=== PATIENT | female | born 1955 ===

== ENCOUNTER 2022-04-16 18:42 | Emergency (ER) | payer MEDICARE, BC, SELFPAY ==
[2022-04-16 18:44] VITALS: BP 149/75; PULSE 71; RESP 18; TEMP 36.3; O2SAT 100; BMI 30.9
--- NOTE | 2022-04-16 19:09 | CRLHL7_ITS ---
For Patients: As a result of the Cures Act, medical imaging exams and procedure reports are released immediately into your electronic medical record. You may view this report before your referring provider. If you have questions, please contact your health care provider. INDICATION: shortness of breath TECHNIQUE: Chest 1 view COMPARISON: None FINDINGS: Cardiovascular and mediastinum: Mild tortuosity of the descending thoracic aorta and mild prominence of the cardiac silhouette. Lungs and pleural spaces: Lungs are clear. No sign of infiltrate or mass. No sign of pleural effusion. No pneumothorax. Bones and soft tissues: Left shoulder replacement hardware. Degenerative changes at the right glenohumeral joint. IMPRESSION: No acute findings. Dictated by Shane Rivera MD @ 04/23/2022 8:22:50 AM (Electronically Signed)
--- NOTE | 2022-04-16 19:20 | ED_ITS ---
HPI - General Adult General Date Seen: 04/16/22 <Erica Lucero MD - Last Filed: 04/25/22 19:11> Chief complaint: Flank Pain <Erica Lucero MD - Last Filed: 04/25/22 19:11> Stated complaint: R Side Back Pain Wrapping to Abdomen <Erica Lucero MD - Last Filed: 04/25/22 19:11> Time Seen by Provider: 04/16/22 18:48 <Erica Lucero MD - Last Filed: 04/25/22 19:11> Source: patient <Erica Lucero MD - Last Filed: 04/25/22 19:11> History of Present Illness HPI narrative: 67-year-old woman who presents for some right-sided back and chest pain which has been bothering her for a couple of weeks. She says it comes on after eating, this is the only time she has pain. It does not happen after every time she eats and she has not noted any association with specific foods. It starts usually about half an hour after she eats, and responds to 3 Tums. She describes it as sharp and occasionally relatively severe. It starts by her right scapula and then wraps around her right chest into the xiphoid region. It hurts to lay on the right side when it is happening. It is not associated with nausea or vomiting, she has not had any black or bloody stools. She has been having some diarrhea which is not uncommon for her. She has a history of small- bowel obstruction and says that part of her intestine is removed. She does not have any history of gastric ulcer or other GI bleeding. She denies any previous history of endoscopy. She does take meloxicam for arthritis and back pain, and says she was taking lot of ibuprofen for back pain in February. She has not taken any in March however. She does not drink alcohol, and does not smoke. She has a history of cholecystectomy 14 years ago. She is status post breast cancer remotely, bilateral mastectomy. She has not had any exertional chest pain. She denies any shortness of breath, fever or cough. No lower extremity swelling or pain. She says that she contacted her primary clinic last week about her symptoms, and was told to discontinue eating fresh fruits and vegetables. She did this for a couple of days but did not note any change in her symptoms. She says that she reached out her clinic again, but was told that they did not have any appointments and that she should go to Urgent Care. She says she did not go to Urgent Care because she had a lot of people coming to her house for reunion over the weekend. The reunion is now completed, so she presents to the emergency room for evaluation. <Erica Lucero MD - Last Filed: 04/25/22 19:11> Related Data Home medications: Home Medications Medication Instructions Recorded Confirmed amlodipine 10 mg tablet mg 04/16/22 fluoxetine 20 mg capsule mg 04/16/22 fluoxetine 40 mg capsule mg 04/16/22 latanoprost 0.005 % eye drops drp 04/16/22 levothyroxine 137 mcg tablet mcg 04/16/22 levothyroxine 150 mcg tablet mcg 04/16/22 losartan 25 mg tablet mg 04/16/22 meloxicam 15 mg tablet mg 04/16/22 <Erica Lucero MD - Last Filed: 04/25/22 19:11> Allergies/adverse reactions: Allergies Allergy/AdvReac Type Severity Reaction Status Date / Time hydromorphone [From Dilaudid] Allergy Mild Nausea Verified 04/16/22 18:51 morphine Allergy Mild Nausea Verified 04/16/22 18:51 <Erica Lucero MD - Last Filed: 04/25/22 19:11> Review of Systems Status of ROS: Reports: 10 or more systems reviewed and unremarkable except as noted in History and below <Erica Lucero MD - Last Filed: 04/25/22 19:11> [facility] Social History: Social History Smoking Status: Never smoker Do you use any of these nicotine containing products: None Second hand tobacco smoke exposure: No How often do you have a drink containing alcohol: monthly or less AUDIT-C Alcohol total score: 1 Non-prescribed substance use: denies use <Erica Lucero MD - Last Filed: 04/25/22 19:11> Exam Narrative: Exam Narrative: Vital signs as noted above. In general, an alert, well-appearing patient. Head: Normocephalic, atraumatic. Eyes: Pupils are equal reactive. Extraocular movements are full. Conjunctivae are normal. ENT: Mucous membranes are moist. Throat is normal. Neck: Supple without lymphadenopathy. Heart: Regular rate and rhythm. No murmur or rub. Lungs: Clear bilaterally. No increased work of breathing, crackles or wheezes. Abdomen: Soft and nontender. No organomegaly. Extremities: Well perfused. No edema. No calf tenderness. Pulses intact. Neurologic: Patient is alert and oriented to person and place. Speech is fluent. Face is symmetric. Moves all extremities equally. Affect: Normal. Skin: Warm and dry. Well perfused. <Erica Lucero MD - Last Filed: 04/25/22 19:11> Const: Vital Signs, click to edit/add: Vital Signs - 24 hr 04/16/22 18:44 Temperature 97.3 F L Pulse Rate [Right Pulse Oximeter] 71 Respiratory Rate 18 Blood Pressure [Ri ght Upper Arm] 149/75 H Pulse Oximetry 100 Oxygen Delivery Me thod Room Air <Erica Lucero MD - Last Filed: 04/25/22 19:11> Vital Signs, click to edit/add: Vital Signs - 24 hr 04/16/22 18:44 Temperature 97.3 F L Pulse Rate [Right Pulse Oximeter] 71 Respiratory Rate 18 Blood Pressure [Ri ght Upper Arm] 149/75 H Pulse Oximetry 100 Oxygen Delivery Me thod Room Air <Yo Sam MD - Last Filed: 04/16/22 21:57> Course Course Hospital Course: Patient had an EKG which by my review shows normal sinus rhythm, ventricular rate of 61 beats per minute. No acute ST segment changes. A portable chest x-ray by my review is also negative, final radiology report is pending at this time. Her labs are also pending. She remains comfortable without acute symptoms. I am signing her care out to Dr. Sam to follow up on labs. He is seeming these are negative, I think it is reasonable to let her go home. Given that she does not have pain now, I do not think this likely represents problem such as pancreatitis, hepatitis, bowel obstruction, my suspicion for cardiac etiology is low but I did do a troponin. EKG is normal. Symptoms have been exclusively postprandial, and I do not think she needs repeat troponins. Her cholecystectomy was over a decade ago, retained stone is unlikely assuming her LFTs and lipase are normal. I do think it is most likely that this is related to esophagitis, esophageal spasm, gastritis or peptic ulcer disease. I would recommend that she start on a PPI and follow up closely with her primary doctor. It does not sound as if there is any specific dietary trigger for her, so do not think she needs to moderate her food intake at this time, I think it is reasonable for her to go back to eating fruits and vegetables. If she has persistent severe pain, or she has new symptoms such as vomiting, fever, black or bloody stools, she should return to the emergency department for more emergent evaluation. She certainly is not toxic or having severe pain at this time, chest x-ray is negative, I do not think this represents esophageal perforation. <Erica Lucero MD - Last Filed: 04/25/22 19:11> Reevaluation(s) Reevaluation #1: AST and ALT mildly elevated, bilirubin and lipase are normal, biliary obstruction unlikely. Labs are otherwise reassuring. Patient remains comfortable in the emergency department and is stable for discharge. <Yo Sam MD - Last Filed: 04/16/22 21:57> Vital Signs Vital signs: Initial Vital Signs Temperature 97.3 F L 04/16/22 18:44 Temperature Source Temporal Artery Scan 04/16/22 18:44 Pulse Rate 71 04/16/22 18:44 Pulse Rhythm 04/16/22 18:44 Respiratory Rate 18 04/16/22 18:44 Blood Pressure 149/75 H 04/16/22 18:44 Blood Pressure Mean 99 04/16/22 18:44 Blood Pressure Position Sitting 04/16/22 18:44 Pulse Oximetry 100 04/16/22 18:44 Oxygen Delivery Method 04/16/22 18:44 Vital Signs Temperature 97.3 F L 04/16/22 18:44 Pulse Rate 71 04/16/22 18:44 Respiratory Rate 18 04/16/22 18:44 Blood Pressure 149/75 H 04/16/22 18:44 Pulse Oximetry 100 04/16/22 18:44 Oxygen Delivery Method 04/16/22 18:44 Temperature 97.3 F L 04/16/22 18:44 Pulse Rate 71 04/16/22 18:44 Respiratory Rate 18 04/16/22 18:44 Blood Pressure 149/75 H 04/16/22 18:44 Pulse Oximetry 100 04/16/22 18:44 Oxygen Delivery Method 04/16/22 18:44 <Erica Lucero MD - Last Filed: 04/25/22 19:11> Initial Vital Signs Temperature 97.3 F L 04/16/22 18:44 Temperature Source Temporal Artery Scan 04/16/22 18:44 Pulse Rate 71 04/16/22 18:44 Pulse Rhythm 04/16/22 18:44 Respiratory Rate 18 04/16/22 18:44 Blood Pressure 149/75 H 04/16/22 18:44 Blood Pressure Mean 99 04/16/22 18:44 Blood Pressure Position Sitting 04/16/22 18:44 Pulse Oximetry 100 04/16/22 18:44 Oxygen Delivery Method 04/16/22 18:44 Vital Signs Temperature 97.3 F L 04/16/22 18:44 Pulse Rate 71 04/16/22 18:44 Respiratory Rate 18 04/16/22 18:44 Blood Pressure 149/75 H 04/16/22 18:44 Pulse Oximetry 100 04/16/22 18:44 Oxygen Delivery Method 04/16/22 18:44 Temperature 97.3 F L 04/16/22 18:44 Pulse Rate 71 04/16/22 18:44 Respiratory Rate 18 04/16/22 18:44 Blood Pressure 149/75 H 04/16/22 18:44 Pulse Oximetry 100 04/16/22 18:44 Oxygen Delivery Method 04/16/22 18:44 <Yo Sam MD - Last Filed: 04/16/22 21:57> Medical Decision Making Lab Data Labs: Lab Results 04/16/22 04/16/22 Range/Units 20:47 20:47 WBC 5.17 (4.50-11.00) K/uL RBC 4.35 (4.00-5.20) m/uL Hgb 13.1 (12.0-16.0) gm/dL Hct 40.1 (33.0-51.0) % MCV 92 (80-100) fL MCH 30 (26-34) pg MCHC 33 (32-36) gm/dL RDW Coeff of Camilo 13.4 (11.5-15.5) % Plt Count 294 (140-440) K/uL Neut % (Auto) 52.6 (42.0-72.0) % Lymph % (Auto) 33.7 (20-44) % Winn % (Auto) 11.6 H (0.0-11.0) % Eos % (Auto) 1.5 (0.0-7.0) % Baso % (Auto) 0.4 (0.0-3.0) % Neut # (Auto) 2.72 (1.7-7.0) K/uL Lymph # (Auto) 1.74 (0.90-2.90) K/uL Winn # (Auto) 0.60 (0.00-0.90) K/UL Eos # (Auto) 0.08 (0.00-0.50) K/uL Baso # (Auto) 0.02 (0.00-0.30) K/uL Abs Immat Gran (auto) 0.01 (0.00-0.30) K/uL Sodium 140 (135-149) mmol/L Potassium 4.1 (3.6-5.1) mmol/L Chloride 103 (96-114) mmol/L Carbon Dioxide 30 (20-32) mmol/L BUN 18 (7-30) mg/dL Creatinine 0.6 (0.5-1.5) mg/dL Estimated Creat Clear 46.50 Estimated GFR 98 ml/min Glucose 109 (60-115) mg/dL Calcium 9.3 (8.4-10.6) mg/dL Total Bilirubin 0.3 (0.1-1.5) mg/dL Direct Bilirubin 0.2 (0.0-0.5) mg/dL AST 39 H (12-35) U/L ALT 43 H (4-35) U/L Alkaline Phosphatase 94 (40-150) U/L C-Reactive Protein 0.7 (0.5-1.0) mg/dL Total Protein 7.2 (6.0-8.3) g/dL Albumin 4.3 (3.3-5.0) g/dL Lipase 116 (23-300) U/L <Erica Lucero MD - Last Filed: 04/25/22 19:11> Lab Results 04/16/22 04/16/22 Range/Units 20:47 20:47 WBC 5.17 (4.50-11.00) K/uL RBC 4.35 (4.00-5.20) m/uL Hgb 13.1 (12.0-16.0) gm/dL Hct 40.1 (33.0-51.0) % MCV 92 (80-100) fL MCH 30 (26-34) pg MCHC 33 (32-36) gm/dL RDW Coeff of Camilo 13.4 (11.5-15.5) % Plt Count 294 (140-440) K/uL Neut % (Auto) 52.6 (42.0-72.0) % Lymph % (Auto) 33.7 (20-44) % Winn % (Auto) 11.6 H (0.0-11.0) % Eos % (Auto) 1.5 (0.0-7.0) % Baso % (Auto) 0.4 (0.0-3.0) % Neut # (Auto) 2.72 (1.7-7.0) K/uL Lymph # (Auto) 1.74 (0.90-2.90) K/uL Winn # (Auto) 0.60 (0.00-0.90) K/UL Eos # (Auto) 0.08 (0.00-0.50) K/uL Baso # (Auto) 0.02 (0.00-0.30) K/uL Abs Immat Gran (auto) 0.01 (0.00-0.30) K/uL Sodium 140 (135-149) mmol/L Potassium 4.1 (3.6-5.1) mmol/L Chloride 103 (96-114) mmol/L Carbon Dioxide 30 (20-32) mmol/L BUN 18 (7-30) mg/dL Creatinine 0.6 (0.5-1.5) mg/dL Estimated Creat Clear 46.50 Estimated GFR 98 ml/min Glucose 109 (60-115) mg/dL Calcium 9.3 (8.4-10.6) mg/dL Total Bilirubin 0.3 (0.1-1.5) mg/dL Direct Bilirubin 0.2 (0.0-0.5) mg/dL AST 39 H (12-35) U/L ALT 43 H (4-35) U/L Alkaline Phosphatase 94 (40-150) U/L C-Reactive Protein 0.7 (0.5-1.0) mg/dL Total Protein 7.2 (6.0-8.3) g/dL Albumin 4.3 (3.3-5.0) g/dL Lipase 116 (23-300) U/L <Yo Sam MD - Last Filed: 04/16/22 21:57> Discharge Plan Discharge Clinical Impression: Esophageal spasm <Erica Lucero MD - Last Filed: 04/25/22 19:11> Patient Disposition: Home, Self-Care <Erica Lucero MD - Last Filed: 04/25/22 19:11> Condition: Stable <Erica Lucero MD - Last Filed: 04/25/22 19:11> Instructions: Esophageal Spasm (ED) <Erica Lucero MD - Last Filed: 04/25/22 19:11> Additional Instructions: Start a proton pump inhibitor such as omeprazole or pantoprazole. You can buy these over the counter. I would recommend follow-up with your primary doctor in the next 1-2 weeks. If you develop severe or unrelenting pain, new symptoms such as fever, vomiting, black or bloody stools, you should be seen again more urgently in the emergency department. <Erica Lucero MD - Last Filed: 04/25/22 19:11> Prescriptions: No Action fluoxetine 40 mg capsule Label Comments: TAKE ONE CAPSULE BY MOUTH DAILY ALONG WITH 20MG CAPSULE latanoprost 0.005 % drops Label Comments: INSTILL ONE DROP INTO EACH EYE ONCE DAILY levothyroxine 137 mcg tablet Label Comments: TAKE ONE TABLET BY MOUTH DAILY meloxicam 15 mg tablet Label Comments: TAKE ONE TABLET BY MOUTH DAILY amlodipine 10 mg tablet Label Comments: TAKE ONE TABLET BY MOUTH DAILY levothyroxine 150 mcg tablet Label Comments: TAKE ONE TABLET BY MOUTH DAILY losartan 25 mg tablet Label Comments: TAKE 1 TABLET BY MOUTH DAILY fluoxetine 20 mg capsule Label Comments: TAKE ONE CAPSULE BY MOUTH DAILY IN ADDITION TO 40 MG CAPSULE FOR A TOTAL DAILY DOSE OF 60 MG. <Erica Lucero MD - Last Filed: 04/25/22 19:11> Follow Up/Referrals: Provider,Not a Local [Primary Care Provider] - <Erica Lucero MD - Last Filed: 04/25/22 19:11> Stand Alone Forms: MyHealth Info Instructions <Erica Lucero MD - Last Filed: 04/25/22 19:11>
--- OUTSIDE RECORDS SUMMARY | 2022-04-16 19:35 | XMS_ITS | Encounter Summary ---
:1955 Author Organization [facility] Address [address] [place] [address]. [place] [address] Care Team Providers Name Role Phone Vanessa Mills MD Primary Care Provider [phone] Vanessa Mills MD Unavailable [phone] Reason for Visit Reason Comments Pre-Op Exam Encounter Details Date Type Department Care Team Description 05/23/2021 Office Visit [facility] Sumit Phan Preop [facility] [place] exam (Primary [place]x) [id number] [id number] [phone] Social History Tobacco Use Types Packs/Day Years Used Date Never Smoker Smokeless Tobacco: Never Used Alcohol Use Standard Drinks/Week Comments Yes 0 (1 standard drink = 0.6 oz pure alcoho l) 1 glass of wine per week 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 Date Recorded Female 06/29/2019 1:44 PM [employer]ING [employer] COVID-19 Exposure Response Date Recorded In the last month, have you been in contact with No / Unsure 05/23/2021 10:58 AM CDT someone who was confirmed or suspected to have Coronavirus / COVID-19? documented as of this encounter Last Filed Vital Signs Vital Sign Reading Time Taken Comments Blood Pressure 134/79 05/23/2021 11:19 AM CDT Pulse 90 05/23/2021 11:19 AM CDT Temperature 37.1 ??C (98.7 ??F) 05/23/2021 11:19 AM CDT Respiratory Rate - - Oxygen Saturation 97% 05/23/2021 11:19 AM CDT Inhaled Oxygen Concentration - - Weight 88.9 kg (196 lb) 05/23/2021 11:19 AM CDT Height 162.6 cm (5' 4) 05/23/2021 11:19 AM CDT Body Mass Index 33.64 05/23/2021 11:19 AM CDT documented in this encounter Patient Instructions Patient InstructionsCharo Armstrong MA - 05/23/2021 11:30 AM CDT Preparing for Your Surgery Getting started A nurse will call you to review your health history and instructions. They will give you an arrival time based on your scheduled surgery time. Please be ready to share the following: ?? Your doctor's clinic name and phone number ?? Your medical, surgical and anesthesia history ?? A list of allergies and sensitivities ?? A list of medicines, including herbal treatments and lffa-fwd-jjffuyh drugs ?? Whether the patient has a legal guardian (ask how to send us the papers in advance) If you have a child who's having surgery, please ask for a copy of Preparing for Your Child's Surgery. Preparing for surgery ?? Within 30 days of surgery: Have a pre-op exam (sometimes called an H&P, or History and Physical). This can be done at a clinic or pre-operative center. ? If you're having a , you may not need this exam. Talk to your care team ?? At your pre-op exam, talk to your care team about all medicines you take. If you need to stop anymedicines before surgery, ask when to start taking them again. ? We do this for your safety. Many medicines can make you bleed too much during surgery. Some changehow well surgery (anesthesia) drugs work. ?? Call your insurance company to let them know you're having surgery. (If you don't have insurance,call [phone].) ?? Call your clinic if there's any change in your health. This includes signs of a cold or flu (sorethroat, runny nose, cough, rash, fever). It also includes a scrape or scratch near the surgery site. ?? If you have questions on the day of surgery, call your hospital or surgery center. Eating and drinking guidelines For your safety: Unless your surgeon tells you otherwise, follow the guidelines below. ?? Eat and drink as usual until 8 hours before surgery. After that, no food or milk. ?? Drink clear liquids until 2 hours before surgery. These are liquids you can see through, like water, Gatorade and Propel Water. You may also have black coffee and tea (no cream or milk). ?? Nothing by mouth within 2 hours of surgery. This includes gum, candy and breath mints. ?? If you drink, stop drinking alcohol the night before surgery. ?? If your care team tells you to take medicine on the morning of surgery, it's okay to take it witha sip of water. Preventing infection ?? Shower or bathe the night before and morning of your surgery. Follow the instructions your clinicgave you. (If no instructions, use regular soap.) ?? Don't shave or clip hair near your surgery site. We'll remove the hair if needed. ?? Don't smoke or vape the morning of surgery. You may chew nicotine gum up to 2 hours before surgery. A nicotine patch is okay. ? Note: Some surgeries require you to completely quit smoking and nicotine. Check with your surgeon. ?? Your care team will make every effort to keep you safe from infection. We will: ? Clean our hands often with soap and water (or an alcohol-based hand rub). ? Clean the skin at your surgery site with a special soap that kills germs. ? Give you a special gown to keep you warm. (Cold raises the risk of infection.) ? Wear special hair covers, masks, gowns and gloves during surgery. ? Give antibiotic medicine, if prescribed. Not all surgeries need antibiotics. What to bring on the day of surgery ?? Photo ID and insurance card ?? Copy of your health care directive, if you have one ?? Glasses and hearing aides (bring cases) ? You can't wear contacts during surgery ?? Inhaler and eye drops, if you use them (tell us about these when you arrive) ?? CPAP machine or breathing device, if you use them ?? A few personal items, if spending the night ?? If you have . . . ? A pacemaker or ICD (cardiac defibrillator): Bring the ID card. ? An implanted stimulator: Bring the remote control. ? A legal guardian: Bring a copy of the certified (court-stamped) guardianship papers. Please remove any jewelry, including body piercings. Leave jewelry and other valuables at home. If you're going home the day of surgery Important: If you don't follow the rules below, we must cancel your surgery. ?? Arrange for someone to drive you home after surgery. You may not drive, take a taxi or take public transportation by yourself (unless you'll have local anesthesia only). ?? Arrange for a responsible adult to stay with you overnight. If you don't, we may keep you in the hospital overnight, and you may need to pay the costs yourself. Questions? If you have any questions for your care team, list them here: For informational purposes only. Not to replace the advice of your health care provider. Copyright ?? 2018 [facility]. All rights reserved. Clinically reviewed by Celine Espinoza MD. [employer] [id number] - REV 12/05. documented in this encounter Progress Notes Sumit Phan MD - 05/23/2021 11:30 AM CDT [address] [address] Primary Provider: Vanessa Mills Pre-op Performing Provider: SUMIT PHAN PREOPERATIVE EVALUATION: Today's date: 05/23/2021 Valeri Keenan is a 66 year old female who presents for a preoperative evaluation. Surgical Information: Surgery/Procedure: Back Surgery Surgery Location: [facility] Surgeon: Dr Lo Surgery Date: 05-29-21 Time of Surgery: TBD Where patient plans to recover: At home with family Fax number for surgical facility: [phone] Type of Anesthesia Anticipated: General Assessment & Plan The proposed surgical procedure is considered LOW risk. Preop general physical exam Scheduled for microdiscectomy Left leg pain and dysaesthesia secondary to L3.[address] Lo [facility] RECOMMENDATION: APPROVAL GIVEN to proceed with proposed procedure, without further diagnostic evaluation. Review of external notes as documented above Subjective HPI related to upcoming procedure: lumbar disk surgery DR. Lo Preop Questions 05/23/2021 1. Have you ever had a heart attack or stroke? No 2. Have you ever had surgery on your heart or blood vessels, such as a stent placement, a coronary artery bypass, or surgery on an artery in your head, neck, heart, or legs? No 3. Do you have chest pain with activity? No 4. Do you have a history of heart failure? No 5. Do you currently have a cold, bronchitis or symptoms of other infection? No 6. Do you have a cough, shortness of breath, or wheezing? No 7. Do you or anyone in your family have previous history of blood clots? No 8. Do you or does anyone in your family have a serious bleeding problem such as prolonged bleeding following surgeries or cuts? No 9. Have you ever had problems with anemia or been told to take iron pills? No 10. Have you had any abnormal blood loss such as black, tarry or bloody stools, or abnormal vaginal bleeding? No 11. Have you ever had a blood transfusion? No 12. Are you willing to have a blood transfusion if it is medically needed before, during, or after your surgery? Yes 13. Have you or any of your relatives ever had problems with anesthesia? YES - mother post op nausea 14. Do you have sleep apnea, excessive snoring or daytime drowsiness? No 15. Do you have any artifical heart valves or other implanted medical devices like a pacemaker, defibrillator, or continuous glucose monitor? No 16. Do you have artificial joints? YES - right hip 17. Are you allergic to latex? No Health Care Directive: Patient does not have a Health Care Directive or Living Will: Discussed advance care planning with patient; however, patient declined at this time. Preoperative Review of BEVERAGE DISTILLER: BEVERAGE DISTILLER reviewed - controlled substances reflected in medication list. Past Medical History: Diagnosis Date ??? Carpal tunnel syndrome 12/05/10 ??? Depression 12/25/09 ??? 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 Female stress incontinence ??? Headache(784.0) ??? Headache(784.0) 12/05/10 ??? Hypothyroidism 12/25/09 ??? MEDICAL HISTORY OF - 2002 DEXA normal ??? 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 Osteoarthrosis, unspecified whether generalized or localized, other specified sites 2003 Hands, multiple joints, followed by Rheum ??? Other specified menopausal and postmenopausal disorder 2002 On HRT x 9months, then DC ??? Personal history of colonic polyps 04/2005 adenoma ??? Pure hypercholesterolemia 2006 GOAL IS LDL<130 ??? Temporomandibular joint disorders, unspecified Past Surgical History: Procedure Laterality Date ??? C APPENDECTOMY ??? C VAG HYST,RMV TUBE/OVARY 08/2002 Fibroids, on HRT x 10 months, then D/C ??? CARPAL TUNNEL RELEASE RT/LT ??? COLONOSCOPY 04/16/2013 due 2022 ??? FOOT SURGERY RIGHT 2ND TOE SURGERY ??? FOOT SURGERY 2014 fusion of right foot ??? HC MASTECTOMY, SIMPLE, COMPLETE 03/2007 right with carcinoma, left prophylactic ??? HC THYROIDECTOMY 07/2007 total thyroidectomy ??? LAPAROTOMY EXPLORATORY 08/2018 lyses of adhesions. ileocolic resection for obstruction ??? SHOULDER SURGERY Left 07/2019 total shoulder replacement Family History Problem Relation Age of Onset ??? Neurologic Disorder Mother headaches ??? Arthritis Mother DJD ??? Hypertension Mother ??? Osteoporosis Mother ??? Cancer Mother 95 ?primary vs metastatic ??? C.A.D. Father [place] 53, at 58 ??? Neurologic Disorder Father Parkinsons ??? Hypertension Brother ??? Arthritis Brother ??? Cerebrovascular Disease Maternal Grandmother ??? Circulatory Paternal Grandmother Brain Aneurysm ??? Osteoporosis Paternal Grandmother ??? Cancer Other niece wtih squamous cell ca of tongue, age 42, nonsmoker/no Etoh ??? Prostate Cancer Brother ??? Pacemaker Brother ??? Hypertension Brother ??? Neurologic Disorder Brother parkinson's 63 ??? Breast Cancer No family hx of ??? Cancer - colorectal No family hx of Social History Tobacco Use ??? Smoking status: Never Smoker ??? Smokeless tobacco: Never Used Substance Use Topics ??? Alcohol use: Yes Comment: 1 glass of wine per week Review of Systems CONSTITUTIONAL: NEGATIVE for fever, chills, change in weight INTEGUMENTARY/SKIN: NEGATIVE for worrisome rashes, moles or lesions EYES: NEGATIVE for vision changes or irritation ENT/MOUTH: NEGATIVE for ear, mouth and throat problems RESP: NEGATIVE for significant cough or SOB CV: NEGATIVE for chest pain, palpitations or peripheral edema GI: NEGATIVE for nausea, abdominal pain, heartburn, or change in bowel habits : NEGATIVE for frequency, dysuria, or hematuria MUSCULOSKELETAL: NEGATIVE for significant arthralgias or myalgia NEURO: NEGATIVE for weakness, dizziness or paresthesias ENDOCRINE: NEGATIVE for temperature intolerance, skin/hair changes HEME: NEGATIVE for bleeding problems PSYCHIATRIC: NEGATIVE for changes in mood or affect Patient Active Problem List Diagnosis Date Noted ??? Heart murmur 06/05/2017 Priority: Medium ??? Osteoarthritis 03/25/2016 Priority: Medium Hands, multiple joints, followed by Rheum ??? Depression 03/25/2016 Priority: Medium ??? Hypertension 03/25/2016 Priority: Medium ? ? HYPERLIPIDEMIA LDL GOAL <130 09/27/2009 Priority: Medium ??? Constipation 02/15/2009 Priority: Medium ??? Malignant neoplasm of female breast (H) Priority: Medium ??Core biopsy revealed DCIS (high grade, ERPR negative). Mastectomy 03/16/2007 Problem list name updated by automated process. Provider to review ??? Obesity 04/11/2006 Priority: Medium Problem list name updated by automated process. Provider to review ??? Hypothyroidism 04/10/2006 Priority: Medium Problem list name updated by automated process. Provider to review ??? [email or web address] 11/26/2005 Priority: Medium ??? Headache 09/27/2004 Priority: Medium Problem list name updated by automated process. Provider to review ??? Female stress incontinence 09/27/2004 Priority: Medium ??? Other specified menopausal and postmenopausal disorder 09/27/2004 Priority: Medium On HRT x 9months, then DC Past Medical History: Diagnosis Date ??? Carpal tunnel syndrome 12/05/10 ??? Depression 12/25/09 ??? 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 Female stress incontinence ??? Headache(784.0) ??? Headache(784.0) 12/05/10 ??? Hypothyroidism 12/25/09 ??? MEDICAL HISTORY OF - 2002 DEXA normal ??? 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 Osteoarthrosis, unspecified whether generalized or localized, other specified sites 2004 Hands, multiple joints, followed by Rheum ??? Other specified menopausal and postmenopausal disorder 2002 On HRT x 9months, then DC ??? Personal history of colonic polyps 04/2005 adenoma ??? Pure hypercholesterolemia 2006 GOAL IS LDL<130 ??? Temporomandibular joint disorders, unspecified Past Surgical History: Procedure Laterality Date ??? C APPENDECTOMY ??? C VAG HYST,RMV TUBE/OVARY 08/2002 Fibroids, on HRT x 10 months, then D/C ??? CARPAL TUNNEL RELEASE RT/LT ??? COLONOSCOPY 04/16/2013 due 2022 ??? FOOT SURGERY RIGHT 2ND TOE SURGERY ??? FOOT SURGERY 2014 fusion of right foot ??? HC MASTECTOMY, SIMPLE, COMPLETE 03/2007 right with carcinoma, left prophylactic ??? HC THYROIDECTOMY 07/2007 total thyroidectomy ??? LAPAROTOMY EXPLORATORY 08/2018 lyses of adhesions. ileocolic resection for obstruction ??? SHOULDER SURGERY Left 07/2019 total shoulder replacement Current Outpatient Medications Medication Sig Dispense Refill ??? acetaminophen (TYLENOL EX ST ARTHRITIS PAIN) 500 MG tablet Take 2 tablets by mouth daily ??? amLODIPine (NORVASC) 10 MG tablet Take 1 daily 90 tablet 3 ??? FLUoxetine (PROZAC) 20 MG capsule Take along with 40mg dose daily 90 capsule 3 ??? FLUoxetine (PROZAC) 40 MG capsule Take one daily with 20mg capsule 90 capsule 3 ??? LEVOTHYROXINE SODIUM 175 MCG OR TABS 1 TABLET DAILY 30 0 ??? meloxicam (MOBIC) 15 MG tablet Take 1 tablet (15 mg) by mouth daily 90 tablet 3 Allergies Allergen Reactions ??? Ancef [Cefazolin Sodium] Rash ??? Meperidine nausea ??? Morphine Nausea and dizziness Social History Tobacco Use ??? Smoking status: Never Smoker ??? Smokeless tobacco: Never Used Substance Use Topics ??? Alcohol use: Yes Comment: 1 glass of wine per week History Drug Use No Objective BP 134/79 Pulse 90 Temp 98.7 ??F (37.1 ??C) (Oral) Ht 1.626 m (5' 4) Wt 88.9 kg (196 lb) SpO2 97% BMI 33.64 kg/m?? Physical Exam GENERAL APPEARANCE: healthy, alert and no distress EYES: EOMI, PERRL HENT: ear canals and TM's normal and nose and mouth without ulcers or lesions NECK: no adenopathy, no asymmetry, masses, or scars and thyroid normal to palpation RESP: lungs clear to auscultation - no rales, rhonchi or wheezes CV: regular rates and rhythm, normal S1 S2, no S3 or S4 and no murmur, click or rub ABDOMEN: soft, nontender, no HSM or masses and bowel sounds normal MS: extremities normal- no gross deformities noted, no evidence of inflammation in joints, FROM in all extremities. SKIN: no suspicious lesions or rashes NEURO: Normal strength and tone, sensory exam grossly normal, mentation intact and speech normal PSYCH: mentation appears normal. and affect normal/bright LYMPHATICS: No cervical adenopathy Recent Labs Lab Test 04/26/21 1455 07/05/20 1428 06/30/19 1525 06/30/19 1504 HGB 13.9 -- -- 12.9 PLT 333 -- -- -- INR -- -- 0.97 -- NA -- 142.0 -- 141.0 POTASSIUM -- 4.3 -- 3.9 CR -- 0.8 -- 0.6 Diagnostics: No labs were ordered during this visit. EKG: appears normal, NSR, normal axis, normal intervals, no acute ST/T changes c/w ischemia, no LVH by voltage criteria, unchanged from previous tracings Revised Cardiac Risk Index (RCRI): The patient has the following serious cardiovascular risks for perioperative complications: - No serious cardiac risks = 0 points RCRI Interpretation: 0 points: Class I (very low risk - 0.4% complication rate) Fit for surgery, Cbc and cmp pending Signed Electronically by: Sumit Phan MD Copy of this evaluation report is provided to requesting physician. documented in this encounter Plan of Treatment Not on filedocumented as of this encounter Procedures Procedure Name Priority Date/Time Associated Comments Diagnosis HEMOGLOBIN Routine 05/23/2021 12:15 Preop general Results fo r this PM CDT physical exam procedure are in the results section. COMPREHENSIVE Routine 05/23/2021 12:15 Preop general Results f or this METABOLIC PANEL PM CDT physical exam procedure a re in the results section. EKG 12-LEAD COMPLETE Routine 05/23/2021 Preop general W/READ - CLINICS physical exam documented in this encounter Results Hemoglobin FUTURE 14d (05/23/2021 12:15 PM CDT) P athologist Signature Hemoglobin 13.6 11.7 - 15.7 05/23/2021 [facility] g/dL 12:25 PM CDT Specimen Anatomical Collection Method / Collection Time Recei kal Time (Source) Location / Volume Laterality Blood STRUCTURE OF LEFT Venipuncture / 05/23/2021 12:15 10/0 01/2021 UPPER LIMB / Unknown PM CDT 12:15 PM CDT Unknown Sumit Phan MD LAB - BLOOD ORDERABLES Performing Organization Address City/State/ZIP Code Phon e Number [facility] [place] [address] [place] [facility] [address] [facility] (no room number, 1st floor of clinic) [facility], [place] [phone] [facility] [place] [address], [facility] [address] [facility] (no room number, 1st floor of clinic) (ABNORMAL) Comprehensive metabolic panel FUTURE 2mo (05/23/2021 12:15 PM CDT) [facility] Method Time Signature Sodium 136 133 - 144 05/24/2021 [facility] mmol/L 10:12 AM CDT Potassium 4.8 3.4 - 5.3 05/24/2021 [facility] mmol/L 10:12 AM CDT Chloride 103 94 - 109 05/24/2021 [facility] mmol/L 10:12 AM CDT Carbon Dioxide 28 20 - 32 05/24/2021 [facility] (CO2) mmol/L 10:12 AM CDT Anion Gap 5 3 - 14 05/24/2021 [facility] mmol/L 10:12 AM CDT Urea Nitrogen 25 7 - 30 05/24/2021 [facility] mg/dL 10:12 AM CDT Creatinine 0.74 0.52 - 05/24/2021 [facility] 1.04 mg/dL 10:12 AM CDT Calcium 9.2 8.5 - 10.1 05/24/2021 [facility] mg/dL 10:12 AM CDT Glucose 114 (H) 70 - 99 05/24/2021 [facility] mg/dL 10:12 AM CDT Alkaline 71 40 - 150 05/24/2021 [facility] Phosphatase U/L 10:12 AM CDT AST 20 0 - 45 U/L 05/24/2021 [facility] 10:12 AM CDT ALT 40 0 - 50 U/L 05/24/2021 [facility] 10:12 AM CDT Protein Total 7.0 6.8 - 8.8 05/24/2021 [facility] g/dL 10:12 AM CDT Albumin 3.5 3.4 - 5.0 05/24/2021 [facility] g/dL 10:12 AM CDT Bilirubin Total 0.4 0.2 - 1.3 05/24/2021 [facility] mg/dL 10:12 AM CDT GFR Estimate 84 >60 05/24/2021 [facility] mL/min/1.7 10:12 AM CDT 3m2 Comment: As of February 25, 2021, eGFR is ca lculated by the CKD-EPI creatinine equation, without race adjustment. eGFR can be inf luenced by muscle mass, exercise, and diet. The reported eGFR is an estimation only and is only applicable if the renal function is stable. Specimen Anatomical Collection Method / Collection Time Recei kal Time (Source) Location / Volume Laterality Blood STRUCTURE OF LEFT Venipuncture / 05/23/2021 12:15 10/0 01/2021 UPPER LIMB / Unknown PM CDT 12:15 PM CDT Unknown Sumit Phan MD LAB - BLOOD ORDERABLES Performing Organization Address City/State/ZIP Code Phon e Number [facility] [place], [place] [phone] [place] [facility] [phone] [place] [address] Lab (no room number, 1st floor of clinic) [facility] [place], [place] [phone] [facility] [address] Lab (no room number, 1st floor of clinic) EKG 12-lead complete w/read - Clinics (05/23/2021) Sumit Phan MD ECG ORDERABLES documented in this encounter Visit Diagnoses Diagnosis Preop general physical exam - Primary Other specified pre-operative examinatio n documented in this encounter Additional Health Concerns Assessment Noted Time PHQ-9 Depression Total Score: 1 02/12/2021 3:18 PM CDT documented as of this encounter Care Teams Hand Mexican Food Maker Relationship Specialty Start Date End Date Vanessa Mills MD PCP - General Internal Medicine 07/01/[address] [place] [address] [phone] Vanessa Mills MD Assigned PCP 01/11/[address] [place] [address] [phone] documented as of this encounter
--- OUTSIDE RECORDS SUMMARY | 2022-04-16 19:35 | XMS_ITS | Encounter Summary ---
:1955 Author Organization [employer] Address [address] [address] Phone Care Team Providers Name Role Phone Vanessa Mills MD Primary Care Provider Reason for Visit Pain Center (Routine) - Closed Specialty Diagnoses / Procedures Referred By Contact Refer red To Contact Radiology Diagnoses Pain of lower extremity, unspecified laterality Shane Higuera MD Procedures IR FLUOROGUIDED EPIDURAL INJ [facility] [address] [place] [address] [address] [place] [address] Referral ID Status Reason Start Date Expiration Date Visits Requ ested Visits Authorized [id number] Closed 05/11/2021 08/10/2022 1 1 Encounter Details Date Type Department Care Team Description 05/16/2021 Ancillary [place] Shane Dubois, Pain of lower Procedure CLINIC RADIOLOGY MD extremity, IMAGING CENTER [facility] unspecified [address] [facility] [address] [facility] [address] [place], [place] [address] [id number] [place] [address] [phone] Social History Tobacco Use Types Packs/Day Years Used Date Never Assessed 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 Date Recorded Female 05/14/2021 8:11 PM CDT Job Start Date Occupation Industry Not on file Not on file Not on file COVID-19 Exposure Response Date Recorded In the last month, have you been in contact with No / Unsure 05/16/2021 1:01 PM CDT someone who was confirmed or suspected to have Coronavirus / COVID-19? documented as of this encounter Plan of Treatment Not on filedocumented as of this encounter Procedures Procedure Name Priority Date/Time Associated Diagnosis Comme nts IR FLUOROGUIDED Routine 05/16/2021 1:46 PM Pain of lower Resul ts for this EPIDURAL INJ CDT extremity, procedure are i n unspecified the results laterality section. documented in this encounter Results IR FLUOROGUIDED EPIDURAL INJ (05/16/2021 1:46 PM CDT) Anatomical Region Laterality Modality Spine, Other Radiographic Imaging Specimen (Source) Anatomical Collection Method Collection Time Re ceived Time Location / / Volume Laterality 05/16/2021 1:06 PM CDT Narrative 05/16/2021 2:55 PM CDT LUMBAR INTERLAMINAR EPIDURAL INJECTION. HISTORY: Low back pain with left lower e xtremity radiculopathy. COMPARISON: MRI 05/08/2021 TECHNIQUE: The patient was counseled on the risks, benefits and alternatives to the procedure. Both verbal and written i nformed consent were obtained. An appropriate site for needle entry was ma rked on the skin following preliminary imaging. A timeout was performed accordi ng to protocol. The site was prepped and draped in the usual fashion. 1% lidocain e was administered for local anesthesia. Using sterile technique and intermittent fluoroscopy, a 3.5 inch 22-gauge Tuohy needle was advanced into the dorsal epid ural space at the L3-4 level utilizing loss of resistance technique and an in terlaminar approach. Needle position was confirmed with the injection of a small amount of Omnipaque 300 contrast, which confirmed free flow into the epidural sp sierra. Subsequently, a combination of 3 mL of betamethasone (6 mg/mL) and 2 mL of 1 % preservative-free Xylocaine were injected. The needle was removed and hem ostasis was achieved at the skin puncture site. The patient tolerated the procedure well and there were no immediate complications. A total of 32 seconds of fluoroscopy bello e was utilized for the procedure. The patient reported a preprocedure pain level of 8/10 and a postprocedure pain level of 6/10. IMPRESSION: Successful uneventful fluoro scopic guided lumbar spine epidural steroid/anesthetic injection at L3-4 usi ng an interlaminar approach. Procedure Note Lui Obrien MD - 05/16/2021Forma tting of this note might be different from the original. LUMBAR INTERLAMINAR EPIDURAL INJECTION. HISTORY: Low back pain with left lower e xtremity radiculopathy. COMPARISON: MRI 05/08/2021 TECHNIQUE: The patient was counseled on the risks, benefits and alternatives to the procedure. Both verbal and written i nformed consent were obtained. An appropriate site for needle entry was ma rked on the skin following preliminary imaging. A timeout was performed accordi ng to protocol. The site was prepped and draped in the usual fashion. 1% lidocain e was administered for local anesthesia. Using sterile technique and intermittent fluoroscopy, a 3.5 inch 22-gauge Tuohy needle was advanced into the dorsal epid ural space at the L3-4 level utilizing loss of resistance technique and an in terlaminar approach. Needle position was confirmed with the injection of a small amount of Omnipaque 300 contrast, which confirmed free flow into the epidural sp sierra. Subsequently, a combination of 3 mL of betamethasone (6 mg/mL) and 2 mL of 1 % preservative-free Xylocaine were injected. The needle was removed and hem ostasis was achieved at the skin puncture site. The patient tolerated the procedure well and there were no immediate complications. A total of 32 seconds of fluoroscopy bello e was utilized for the procedure. The patient reported a preprocedure pain level of 8/10 and a postprocedure pain level of 6/10. IMPRESSION: Successful uneventful fluoro scopic guided lumbar spine epidural steroid/anesthetic injection at L3-4 usi ng an interlaminar approach. Shane Higuera MD EC IR ORDERABLES documented in this encounter Visit Diagnoses Diagnosis Pain of lower extremity, unspecified lat erality documented in this encounter Orders Medications Ordered That Might Not Have Count Last Ord ered Date First Ordered Date Been Administered betamethasone acetate-betamethasone sodium 1 05/16 phosphate (CELESTONE SOLUSPAN) injection 18 mg iohexol (OMNIPAQUE) 300 MG/ML 10 mL 1 05/16/2021 lidocaine (Xylocaine) 1 % injection 7 mL 1 021 documented in this encounter Care Teams Hazardous Waste Material Technician Relationship Specialty Start Date End Date Vanessa Mills MD PCP - General Internal Medicine 05/16/[address] [place] [address] documented as of this encounter
--- OUTSIDE RECORDS SUMMARY | 2022-04-16 19:35 | XMS_ITS | Encounter Summary ---
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 documented as of this encounter Plan of Treatment Not on filedocumented as of this encounter Visit Diagnoses Not on filedocumented in this encounter Additional Health Concerns Assessment Noted Time PHQ-9 Depression Total Score: 0 09/05/2021 1:36 PM BLOOD BANK BOOKING CLERK documented as of this encounter Care Teams Radiologic Technology Instructor Relationship Specialty Start Date End Date Vanessa Mills MD PCP - General Internal Medicine 07/01/[address] [place] [phone] Vanessa Mills MD Assigned PCP 01/11/[address] [place] [phone] documented as of this encounter
--- OUTSIDE RECORDS SUMMARY | 2022-04-16 19:35 | XMS_ITS | Encounter Summary ---
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 documented as of this encounter Plan of Treatment Not on filedocumented as of this encounter Visit Diagnoses Not on filedocumented in this encounter Additional Health Concerns Assessment Noted Time PHQ-9 Depression Total Score: 0 09/05/2021 1:36 PM SPOOL SANDER documented as of this encounter Care Teams Rugby League Footballer Relationship Specialty Start Date End Date Vanessa Mills MD PCP - General Internal Medicine 07/01/[address] [place] [address] Vanessa Mills MD Assigned PCP 01/11/[address] [place] [address] documented as of this encounter
--- OUTSIDE RECORDS SUMMARY | 2022-04-16 19:35 | XMS_ITS | Encounter Summary ---
:1955 Author Organization [facility] Address [address] [place] [address] Care Team Providers Name Role Phone Vanessa Mills MD Primary Care Provider [phone] Vanessa Mills MD Unavailable [phone] Encounter Details Date Type Department Care Team Description 01/23/2022 Orders Only [facility] Allyssa King, Status post lumbar [facility] EMT microdisc ectomy (Primary Building Dx) 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 documented as of this encounter Plan of Treatment Not on filedocumented as of this encounter Visit Diagnoses Diagnosis Status post lumbar microdiscectomy - Emily luu Other postprocedural status documented in this encounter Additional Health Concerns Assessment Noted Time PHQ-9 Depression Total Score: 0 09/05/2021 1:36 PM SEMICONDUCTOR WAFERS MARKER documented as of this encounter Care Teams Manager Automotive Relationship Specialty Start Date End Date Vanessa Mills MD PCP - General Internal Medicine 07/01/[address] [place] [id number] Vanessa Mills MD Assigned PCP 01/11/[address] [place] [address] documented as of this encounter
--- OUTSIDE RECORDS SUMMARY | 2022-04-16 19:35 | XMS_ITS | Encounter Summary ---
:1955 Author Organization [facility] Address [address] [place] [address] Care Team Providers Name Role Phone Vanessa Mills MD Primary Care Provider [phone] Vanessa Mills MD Unavailable [phone] Encounter Details Date Type Department Care Team Description 04/26/[address] 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 documented as of this encounter Plan of Treatment Not on filedocumented as of this encounter Procedures Procedure Name Priority Date/Time Associated Comments Diagnosis CBC WITH PLATELETS AND Routine 04/26/2021 2:55 PM Pain in join t, Results for this DIFFERENTIAL CDT pelvic region and procedure are in thigh the results section. CBC WITH PLATELETS & Routine 04/26/2021 2:55 PM Pain in joint, Results for this DIFFERENTIAL CDT pelvic region and procedure are in thigh the results section. ERYTHROCYTE Routine 04/26/2021 2:54 PM Pain in joint, Results for this SEDIMENTATION RATE CDT pelvic region and proc edure are in AUTO thigh the results section. CRP INFLAMMATION Routine 04/26/2021 2:54 PM Pain in joint, Res ults for this CDT pelvic region and procedure are in thigh the results section. documented in this encounter Results (ABNORMAL) CBC with platelets and differential (04/26/2021 2:55 PM CDT) [facility] Method Time Signature WBC Count 6.4 4.0 - 11.0 04/26/2021 [facility] 10e3/uL 3:17 PM CDT RBC Count 4.72 3.80 - 04/26/2021 [facility] 5.20 3:17 PM CDT 10e6/uL Hemoglobin 13.9 11.7 - 04/26/2021 [facility] 15.7 g/dL 3:17 PM CDT Hematocrit 42.0 35.0 - 04/26/2021 [facility] 47.0 % 3:17 PM CDT MCV 89 78 - 100 04/26/2021 [facility] fL 3:17 PM CDT MCH 29.4 26.5 - 04/26/2021 [facility] 33.0 pg 3:17 PM CDT MCHC 33.1 31.5 - 04/26/2021 [facility] 36.5 g/dL 3:17 PM CDT RDW 14.8 10.0 - 04/26/2021 [facility] 15.0 % 3:17 PM CDT Platelet Count 333 150 - 450 04/26/2021 [facility] 10e3/uL 3:17 PM CDT % Neutrophils 88 % 04/26/2021 [facility] 3:17 PM CDT % Lymphocytes 10 % 04/26/2021 [facility] 3:17 PM CDT % Monocytes 2 % 04/26/2021 [facility] 3:17 PM CDT % Eosinophils 0 % 04/26/2021 [facility] 3:17 PM CDT % Basophils 0 % 04/26/2021 [facility] 3:17 PM CDT Absolute 5.6 1.6 - 8.3 04/26/2021 [facility] Neutrophils 10e3/uL 3:17 PM CDT Absolute 0.6 (L) 0.8 - 5.3 04/26/2021 [facility] Lymphocytes 10e3/uL 3:17 PM CDT Absolute 0.1 0.0 - 1.3 04/26/2021 [facility] Monocytes 10e3/uL 3:17 PM CDT Absolute 0.0 0.0 - 0.7 04/26/2021 [facility] Eosinophils 10e3/uL 3:17 PM CDT Absolute 0.0 0.0 - 0.2 04/26/2021 [facility] Basophils 10e3/uL 3:17 PM CDT Specimen Anatomical Collection Method / Collection Time Recei kal Time (Source) Location / Volume Laterality Blood STRUCTURE OF RIGHT Venipuncture / 04/26/2021 2:55 09/0 04/2021 2:55 UPPER LIMB / Unknown PM CDT PM CDT Unknown Jessica Diego PA-C LAB - BLOOD ORDERABLES Performing Organization Address City/[facility] Phon [place] [address] [facility] [address] [facility] Lab (no room number, 1st floor of clinic) [facility] [place] [phone] [facility] [phone] Lab [address] [facility] Lab (no room number, 1st floor of clinic) Erythrocyte sedimentation rate auto (04/26/2021 2:54 PM CDT) [facility] gist Method Time Signature Erythrocyte 8 0 - 30 04/26/2021 [facility] Sedimentation Rate mm/hr 3:17 PM CDT Specimen Anatomical Collection Method / Collection Time Recei kal Time (Source) Location / Volume Laterality Blood STRUCTURE OF RIGHT Venipuncture / 04/26/2021 2:54 09/0 04/2021 2:55 UPPER LIMB / Unknown PM CDT PM CDT Unknown Jessica Diego PA-C LAB - BLOOD ORDERABLES Performing Organization Address City/[facility]/ZIP [facility] Phon [place] [address] [facility] [address] [facility] Lab (no room number, 1st floor of clinic) [facility] [place], [place] [phone] [facility] [phone], [facility] Lab [address] [facility] Lab (no room number, 1st floor of clinic) CRP inflammation (04/26/2021 2:54 PM CDT) Analysis Performed At Patho logist Time Signature CRP Inflammation <2.9 0.0 - 8.0 04/26/2021 [facility] Y mg/L 5:31 PM CDT Specimen Anatomical Collection Method / Collection Time Recei kal Time (Source) Location / Volume Laterality Blood STRUCTURE OF RIGHT Venipuncture / 04/26/2021 2:54 09/0 04/2021 2:55 UPPER LIMB / Unknown PM CDT PM CDT Unknown Jessica Diego PA-C LAB - BLOOD ORDERABLES Performing Organization Address City/State/ZIP Code Phon [place] Number [place] [address] Lab [address] [facility], Room [address]-580 [place] [address], [facility] [place] [address] [facility], Room 3580 documented in this encounter Visit Diagnoses Diagnosis Pain in joint, pelvic region and thigh documented in this encounter Additional Health Concerns Assessment Noted Time PHQ-9 Depression Total Score: 1 02/12/2021 3:18 PM CDT documented as of this encounter Care Teams Policewoman Relationship Specialty Start Date End Date Vanessa Mills MD PCP - General Internal Medicine 07/01/[address] [place] [address] [phone] Vanessa Mills MD Assigned PCP 01/11/[address] [place] [address] documented as of this encounter
--- OUTSIDE RECORDS SUMMARY | 2022-04-16 19:35 | XMS_ITS | Encounter Summary ---
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 documented as of this encounter Plan of Treatment Not on filedocumented as of this encounter Visit Diagnoses Not on filedocumented in this encounter Additional Health Concerns Assessment Noted Time PHQ-9 Depression Total Score: 1 02/12/2021 3:18 PM CDT documented as of this encounter Care Teams Solderer Furnace Relationship Specialty Start Date End Date Vanessa Mills MD PCP - General Internal Medicine 07/01/[address] [place] [address] [phone] Vanessa Mills MD Assigned PCP 01/11/[address] [place] [address] documented as of this encounter
--- OUTSIDE RECORDS SUMMARY | 2022-04-16 19:35 | XMS_ITS | Encounter Summary ---
:1955 Author Organization [facility] Address [address] [place] [address] Care Team Providers Name Role Phone Vanessa Mills MD Primary Care Provider [phone] Reason for Referral (Routine) - Closed Specialty Diagnoses / Procedures Referred By Contact Refer red To Contact Diagnoses Need for pneumococcal vaccine Vanessa Mills, Procedures Pneumococcal vaccine 23 valent PPSV23 (Pneumovax) [[id number]] [address] [place], [place] [address] Referral ID Status Reason Start Date Expiration Date Visits Requ ested Visits Authorized [id number] Closed 07/05/2020 07/05/2021 1 1 GING BOARD OPERATOR Reason for Visit Reason Onset Date Comments Medicare Visit 65 yrs old fasting Imm/Inj 07/05/2020 Flu Shot Encounter Details Date Type Department Care Team Description 07/05/2020 Office Visit [facility] Vanessa Mills Encounter for Medicare hina l wellness exam (Primary Dx); Phill Mendez MD Depression; Building [address] Hyperlipidemia LDL goal <130 ; [address] A Essential hypertension; [address] [place], [place] Need for pneumococcal vaccin e; [place], [place] [phone] Need for prophylactic vaccination and in oculation against influenza [phone] Social History Tobacco Use Types Packs/Day Years Used Date Never Smoker Smokeless Tobacco: Never Used Alcohol Use Standard Drinks/Week Comments Yes 0 (1 standard drink = 0.6 oz pure alcoho l) 1 glass of wine per week 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 Date Recorded Female 06/29/2019 1:44 PM CHARGING BOARD OPERATOR COVID-19 Exposure Response Date Recorded In the last month, have you been in contact with No / Unsure 07/05/2020 1:21 PM CHARGING BOARD OPERATOR someone who was confirmed or suspected to have Coronavirus / COVID-19? documented as of this encounter Last Filed Vital Signs Vital Sign Reading Time Taken Comments Blood Pressure 128/74 07/05/2020 1:29 PM CHARGING BOARD OPERATOR Pulse 59 07/05/2020 1:29 PM CHARGING BOARD OPERATOR Temperature 35.9 ??C (96.6 ??F) 07/05/2020 1:29 PM CHARGING BOARD OPERATOR Respiratory Rate 17 07/05/2020 1:29 PM CHARGING BOARD OPERATOR Oxygen Saturation 98% 07/05/2020 1:29 PM CHARGING BOARD OPERATOR Inhaled Oxygen Concentration - - Weight 85.6 kg (188 lb 12 oz) 07/05/2020 1:29 PM CHARGING BOARD OPERATOR Height 158.8 cm (5' 2.5) 07/05/2020 1:29 PM CHARGING BOARD OPERATOR Body Mass Index 33.97 07/05/2020 1:29 PM CHARGING BOARD OPERATOR documented in this encounter Patient Instructions Patient InstructionsMarli Pereira - 07/05/2020 1:40 PM CST Steps to a healthier diet [place] diabetes Association resources are great Diabetesfoodhub.org This web site can help you make healthier food choices, lower cholesterol and improve overall health, even if you don't have diabetes! Patient Education Personalized Prevention Plan You are due for the preventive services outlined below. Your care team is available to assist you inscheduling these services. If you have already completed any of these items, please share that information with your care team to update in your medical record. Health Maintenance Due Topic Date Due ??? Discuss Advance Care Planning 1955 ??? Depression Action Plan 1955 ??? Zoster (Shingles) Vaccine (1 of 2) 2004 ??? Thyroid Function Lab 11/23/2008 ??? Pneumococcal Vaccine (1 of 1 - PPSV23) 2019 ??? Depression Assessment 12/29/2019 ??? Flu Vaccine (1) 04/18/2020 ??? FALL RISK ASSESSMENT 06/30/2020 GING BOARD OPERATOR documented in this encounter Progress Notes Vanessa Mills MD - 07/05/2020 1:40 PM CST Valeri Keenan is here for a medicare wellness visit. She is fasting. She is up to date on eye exams (preglaucoma?) and dental visits. Wears seat belt-yes. Bike helmet- na. Concerns today: HCM Jihan is a 65 year old woman in stable health. Bilateral mastectomies, no longer goes for mammogram IZAIAH, no pap indicated Colonoscopy: due 2022, chronic diarrhea, since abdominal surgery Tdap due 2023 Flu vaccine: ok today Pneumovax : ok today Advance directive: none on file Hearing concerns: just checked, no hearing aids at this time Fall Risk: none Independent at home: yes Safe : yes Memory concerns: none COGNITIVE SCREEN 1) Repeat 3 items (Banana, [place], Chair) 2) Clock draw: NORMAL 3) 3 item recall: Recalls 3 objects Results: 3 items recalled: COGNITIVE IMPAIRMENT LESS LIKELY Mini-CogTM Copyright S Abbie. Licensed by the author for use in [facility]; reprintedwith permission (edwin@.[facility]). All rights reserved. Diet: fairly healthy, has trouble limiting portion sizes. Was successful with medifast but expensive. Currently following weight watchers. Wt Readings from Last 2 Encounters: 07/05/20 85.6 kg (188 lb 12 oz) 06/30/19 83.2 kg (183 lb 8 oz) Major depression, chronic Jihan has been on fluoxetine 60mg daily (40 + 20mg) for a number of years. She reports mood is good.She would like to continue medication. No suicidal thoughts. No side effect from medication. PHQ 04/16/2018 01/27/2019 06/30/2019 PHQ-9 Total Score 2 1 1 Q9: Thoughts of better off /self-harm past 2 weeks Not at all Not at all Not at all ARELIS-7 SCORE 04/16/2018 01/27/2019 06/30/2019 Total Score - - - Total Score 1 1 0 HTN Jihan takes amlodipine 10mg daily for treatment of hypertension. No current chest pain, palpitationsor lightheadedness. She needs medication refills. BP Readings from Last 3 Encounters: 06/30/19 132/83 01/13/19 136/80 11/18/18 126/80 Health Maintenance Topic Date Due ??? ADVANCE CARE PLANNING 1955 ??? DEPRESSION ACTION PLAN 1955 ??? ZOSTER IMMUNIZATION (1 of 2) 2004 ??? TSH W/FREE T4 REFLEX 11/23/2008 ??? Pneumococcal Vaccine: 65+ Years (1 of 1 - PPSV23) 2019 ??? PHQ-9 12/29/2019 ??? MEDICARE ANNUAL WELLNESS VISIT 01/14/2020 ??? INFLUENZA VACCINE (1) 04/18/2020 ??? FALL RISK ASSESSMENT 06/30/2020 ??? DEXA 05/12/2022 ??? COLORECTAL CANCER SCREENING 04/16/2023 ??? LIPID 01/14/2024 ??? DTAP/TDAP/TD IMMUNIZATION (3 - Td) 01/14/2024 ??? HEPATITIS C SCREENING Completed ??? Pneumococcal Vaccine: Pediatrics (0 to 5 Years) and At-Risk Patients (6 to 64 Years) Aged Out ??? IPV IMMUNIZATION Aged Out ??? MENINGITIS IMMUNIZATION Aged Out ??? HEPATITIS B IMMUNIZATION Aged Out ??? MAMMO SCREENING Discontinued Patient Active Problem List Diagnosis ??? Headache ??? Female stress incontinence ??? Other specified menopausal and postmenopausal disorder ??? iamLUMBAGO ??? Hypothyroidism ??? Obesity ??? Malignant neoplasm of female breast (H) ??? Constipation ? ? HYPERLIPIDEMIA LDL GOAL <130 ??? Osteoarthritis ??? Depression ??? Hypertension ??? Heart murmur Past Surgical History: Procedure Laterality Date ??? [...] lyses of adhesions. ileocolic resection for obstruction Family History Problem Relation Age of Onset ??? Neurologic Disorder Mother headaches ??? Arthritis Mother DJD ??? Hypertension Mother ??? Osteoporosis Mother ??? Cancer Mother 95 ?primary vs metastatic ??? C.A.D. Father [place] 53, at 58 ??? Neurologic Disorder Father [...] Cancer - colorectal No family hx of Social:?? 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 no STD hx? no Vasomotor sx: mild G 3 P 2 A 1 Self Breast exam: mastectomy Current Outpatient Medications Medication Sig Dispense Refill ??? acetaminophen (TYLENOL EX ST ARTHRITIS PAIN) 500 MG tablet Take 2 tablets by mouth daily ??? amLODIPine (NORVASC) 10 MG tablet Take 1 daily 90 tablet 0 ??? celecoxib (CELEBREX) 200 MG capsule Take 1 capsule (200 mg) by mouth daily 90 capsule 3 ??? FLUoxetine (PROZAC) 40 MG capsule Take one daily with 20mg capsule 90 capsule 3 ??? FLUoxetine HCl, PMDD, 20 MG CAPS Take one daily with 40mg capsule daily 90 capsule 3 ??? LEVOTHYROXINE SODIUM 175 MCG OR TABS 1 TABLET DAILY 30 0 Allergies Allergen Reactions ??? Ancef [Cefazolin Sodium] Rash ??? Meperidine nausea ??? Morphine Nausea and dizziness ROS CONSTITUTIONAL:NEGATIVE for fever, chills, change in weight INTEGUMENTARY/SKIN: NEGATIVE for worrisome rashes, moles or lesions EYES: NEGATIVE for vision changes or irritation, preglaucoma ENT/MOUTH: NEGATIVE for ear, mouth and throat problems RESP:NEGATIVE for significant cough or SOB BREAST: bilateral mastectomies with reconstruction CV: NEGATIVE for chest pain, palpitations, ALLAN, orthopnea, PND or peripheral edema GI: NEGATIVE for nausea, abdominal pain, heartburn, or change in bowel habits, tends toward loose stools :NEGATIVE for frequency, dysuria, or hematuria MUSCULOSKELETAL:history of osteoarthritis. Multiple joint replacements. Stable symptoms. NEURO: NEGATIVE for weakness, dizziness or paresthesias ENDOCRINE: NEGATIVE for polyuria/dipsia, temperature intolerance, skin/hair changes, follows with athletic coordinator for thyroid management HEME/ALLERGY/IMMUNE: NEGATIVE for bleeding problems PSYCHIATRIC: NEGATIVE for changes in mood or affect EXAM BP 128/74 (BP Location: Right arm, Patient Position: Sitting, Cuff Size: Adult Large) Pulse 59 Temp 96.6 ??F (35.9 ??C) (Temporal) Resp 17 Ht 1.588 m (5' 2.5) Wt 85.6 kg (188 lb 12 oz) SpO2 98% BMI 33.97 kg/m?? GENERAL APPEARANCE: Alert, pleasant, NAD EYES: PERRL, EOMI, conjunctiva clear HENT: TM normal bilaterally. Nose and mouth masked NECK: no adenopathy, thyroid normal to palpation RESP: lungs clear to auscultation bilaterally, BREAST:bilateral mastectomies with reconstruction, implants bilaterally. CV: regular rate and rhythm, normal S1 S2, 2/6 murmur, no carotid bruits ABDOMEN: soft, nontender, without HSM or masses. Bowel sounds normal MS: extremities normal- bony changes over fingers of both hands, no redness or swelling SKIN: no suspicious lesions or rashes NEURO: Normal strength and tone, sensory exam grossly normal, DTR normoreflexive in upper and lower extremities PSYCH: mentation appears normal. and affect normal/bright. EXT: no peripheral edema, pedal pulses palpable Assessment: (Z00.00) Encounter for Medicare annual wellness exam (primary encounter diagnosis) Comment: 65 year old woman in good health Plan: Comprehensive Metabolic Panel (LabDAQ) Today we discussed ways to maintain a healthy lifestyle with sensible eating, regular exercise and self cares. We dicussed calcium and Vitamin D intake, vaccinations and preventive health screens. Gave link to the [place] diabetes association web page. (F32.9) Depression Comment: mood is stable Plan: FLUoxetine (PROZAC) 40 MG capsule, FLUoxetine (PROZAC) 20 MG capsule Refilled medications (E78.5) Hyperlipidemia LDL goal <130 Comment: fasting Recent Labs Lab Test 07/05/20 1428 01/13/19 1351 06/04/17 1552 06/04/17 1552 CHOL 160.0 160 < > 239.0* HDL 65.0 68 < > 72.0 LDL 67.0 67 < > 149.0* TRIG 142.0 123 < > 89.0 CHOLHDLRATIO 2.5 -- -- 3.3 < > = values in this interval not displayed. Plan: Lipid Panel (LabDAQ) Cholesterol looks very good. Continue efforts at eating a healthier diet. (I10) Essential hypertension Comment: blood pressure in target range Plan: amLODIPine (NORVASC) 10 MG tablet Refilled medication (Z23) Need for pneumococcal vaccine Comment: routine vacccine is due Plan: Pneumococcal vaccine 23 valent PPSV23 (Pneumovax) [89665], ADMIN MEDICARE: Pneumococcal Vaccine (G0009) given (Z23) Need for prophylactic vaccination and inoculation against influenza Comment: routine vaccination is due Plan: FluBlok preserve-free/prefilled, 18+ years [48855], ADMIN INFLUENZA VIRUS VACCINE Vanessa Mills MD Internal Medicine/Pediatrics GING BOARD OPERATOR documented in this encounter Nursing Notes Marli Pereira - 07/05/2020 1:40 PM CST 65 year old Chief Complaint Patient presents with ??? Medicare Visit 65 yrs old fasting Blood pressure 128/74, pulse 59, temperature 96.6 ??F (35.9 ??C), temperature source Temporal, resp.rate 17, height 1.588 m (5' 2.5), weight 85.6 kg (188 lb 12 oz), SpO2 98 %, not currently . Body mass index is 33.97 kg/m??. Patient Active Problem List Diagnosis ??? Headache ??? Female stress incontinence ??? Other specified menopausal and postmenopausal disorder ??? iamLUMBAGO ??? Hypothyroidism ??? Obesity ??? Malignant neoplasm of female breast (H) ??? Constipation ? ? HYPERLIPIDEMIA LDL GOAL <130 ??? Osteoarthritis ??? Depression ??? Hypertension ??? Heart murmur Wt Readings from Last 2 Encounters: 07/05/20 85.6 kg (188 lb 12 oz) 06/30/19 83.2 kg (183 lb 8 oz) BP Readings from Last 3 Encounters: 07/05/20 128/74 06/30/19 132/83 01/13/19 136/80 Current Outpatient Medications Medication ??? acetaminophen (TYLENOL EX ST ARTHRITIS PAIN) 500 MG tablet ??? amLODIPine (NORVASC) 10 MG tablet ??? FLUoxetine (PROZAC) 40 MG capsule ??? FLUoxetine HCl, PMDD, 20 MG CAPS ??? LEVOTHYROXINE SODIUM 175 MCG OR TABS ??? meloxicam (MOBIC) 15 MG tablet No current facility-administered medications for this visit. Social History Tobacco Use ??? Smoking status: Never Smoker ??? Smokeless tobacco: Never Used Substance Use Topics ??? Alcohol use: Yes Comment: 1 glass of wine per week ??? Drug use: No Health Maintenance Due Topic Date Due ??? ADVANCE CARE PLANNING 1955 ??? DEPRESSION ACTION PLAN 1955 ??? ZOSTER IMMUNIZATION (1 of 2) 2004 ??? TSH W/FREE T4 REFLEX 11/23/2008 ??? Pneumococcal Vaccine: 65+ Years (1 of 1 - PPSV23) 2019 ??? INFLUENZA VACCINE (1) 04/18/2020 ??? FALL RISK ASSESSMENT 06/30/2020 Lab Results Component Value Date PAP NIL 12/05/2010 July 05, 2020 1:33 PM GING BOARD OPERATOR Marli Pereira - 07/05/2020 1:40 PM CST Prior to immunization administration, verified patients identity using patient???s name and date of . Please see Immunization Activity for additional information. Screening Questionnaire for Adult Immunization Are you sick today? No Do you have allergies to medications, food, a vaccine component or latex? No Have you ever had a serious reaction after receiving a vaccination? Yes Do you have a long-term health problem with heart, lung, kidney, or metabolic disease (e.g., diabetes), asthma, a blood disorder, no spleen, complement component deficiency, a cochlear implant, or a spinal fluid leak? Are you on long-term aspirin therapy? No Do you have cancer, leukemia, HIV/AIDS, or any other immune system problem? No Do you have a parent, brother, or sister with an immune system problem? No In the past 3 months, have you taken medications that affect your immune system, such as prednisone,other steroids, or anticancer drugs; drugs for the treatment of rheumatoid arthritis, Crohn???s disease, or psoriasis; or have you had radiation treatments? No Have you had a seizure, or a brain or other nervous system problem? No During the past year, have you received a transfusion of blood or blood products, or been given immune (gamma) globulin or antiviral drug? No For women: Are you or is there a chance you could become during the next month? No Have you received any vaccinations in the past 4 weeks? No Immunization questionnaire answers were all negative. Per orders of Dr. Mills , injection of PPSV 23, Flu shot given by Marli Pereira. Patient instructed to remain in clinic for 15 minutes afterwards, and to report any adverse reaction to me immediately. Screening performed by Marli Pereira on 07/05/2020 at 1:34 PM. GING BOARD OPERATOR documented in this encounter Plan of Treatment Not on filedocumented as of this encounter Procedures Procedure Name Priority Date/Time Associated Diagnosis Comme nts LIPID PANEL (LABDAQ) Routine 07/05/2020 2:28 Hyperlipidemia LD L Results for this PM CHARGING BOARD OPERATOR goal <130 procedure are i n the results section. COMPREHENSIVE Routine 07/05/2020 2:28 Encounter for Medicare R esults for this METABOLIC PANEL PM CHARGING BOARD OPERATOR annual wellness exam proc edure are in (LABDAQ) the results section. documented in this encounter Results Lipid Panel (LabDAQ) (07/05/2020 2:28 PM CHARGING BOARD OPERATOR) Analysis Performed At [facility] Time Signature FASTING SPECIMEN yes [facility] Cholesterol 160.0 0.0 - [place] 200.0 [facility] HDL Cholesterol 65.0 >50.0 [facility] Triglycerides 142.0 0.0 - [place] 150.0 [facility] Cholesterol/HDL 2.5 0.0 - 5.0 [place] Ratio [facility] LDL Cholesterol 67.0 0.0 - [place] Direct 129.0 [facility] VLDL-Cholesterol 28.0 7.0 - 32.0 [facility] Specimen Anatomical Collection Method Collection Time Receive d Time (Source) Location / / Volume Laterality Blood specimen VENOUS BLOOD / 07/05/2020 2:28 PM 07/05 2:29 (specimen) Unknown CHARGING BOARD OPERATOR PM CHARGING BOARD OPERATOR Vanessa Mills MD LAB - [facility] Performing Organization Address City/State/ZIP Code Phon e Number [facility] [address] [place] [id number] [address] Comprehensive Metabolic Panel ([facility]) (07/05/2020 2:28 PM CHARGING BOARD OPERATOR) P athologist Signature Glucose 96.0 60.0 - [place] 99.0 mg/dL [facility] Urea Nitrogen 20.0 7.0 - 30.0 [place] mg/dL [facility] Calcium 9.5 8.5 - 10.4 [place] mg/dL [facility] Creatinine 0.8 0.6 - 1.3 [place] mg/dL [facility] eGFR Calculated 76.3 >60.0 [place] (Non Black [facility] Reference) eGFR Calculated 92.3 >60.0 [place] (Black [facility] Reference) Sodium 142.0 137.3 - [place] 146.3 [facility] mmol/L Potassium 4.3 3.4 - 5.3 [place] mmol/L [facility] Chloride 107.0 94.0 - [place] 109.0 [facility] mmol/L Carbon Dioxide 28.0 20.0 - [place] 32.0 [facility] mmol/L Albumin 4.3 3.2 - 4.5 [place] g/dL [facility] Alkaline 74.0 40.0 - [place] Phosphatase 150.0 U/L [facility] ALT 37.0 0.0 - 50.0 [place] U/L [facility] AST 40.0 0.0 - 45.0 [place] U/L [facility] Bilirubin Total 0.7 0.2 - 1.3 [place] mg/dL [facility] Protein Total 7.2 6.8 - 8.8 [place] g/dL [facility] Specimen Anatomical Collection Method Collection Time Receive d Time (Source) Location / / Volume Laterality Blood specimen VENOUS BLOOD / 07/05/2020 2:28 PM 07/05 2:29 (specimen) Unknown CHARGING BOARD OPERATOR PM CHARGING BOARD OPERATOR Vanessa Mills MD LAB - [facility] Performing Organization Address City/State/ZIP Code Phon e Number [facility] [address] [place] [address] [address] documented in this encounter Visit Diagnoses Diagnosis Encounter for Medicare annual wellness e xam - Primary Routine general medical examination at a health care facility Depression Major depressive disorder, single episod e, unspecified Hyperlipidemia LDL goal <130 Other and unspecified hyperlipidemia Essential hypertension Unspecified essential hypertension Need for pneumococcal vaccine Need for prophylactic vaccination agains t streptococcus pneumoniae (pneumococcus) Need for prophylactic vaccination and in oculation against influenza documented in this encounter Additional Health Concerns Assessment Noted Time PHQ-9 Depression Total Score: 2 07/05/2020 1:31 PM CHARGING BOARD OPERATOR documented as of this encounter Care Teams Inspection Supervisor Relationship Specialty Start Date End Date Vanessa Mills MD PCP - General Internal Medicine 07/01/[address] [place] [phone] documented as of this encounter
--- OUTSIDE RECORDS SUMMARY | 2022-04-16 19:35 | XMS_ITS | Encounter Summary ---
:1955 Author Organization [place] Address [address] [place] [address] Care Team Providers Name Role Phone Vanessa Mills MD Primary Care Provider [phone] Vanessa Mills MD Unavailable [phone] Reason for Visit Reason Onset Date Comments Refill Request 07/26/2021 FLUoxetine (PROZAC) 20 MG capsule; FLUoxetine (PROZAC) 40 MG capsule Encounter Details Date Type Department Care Team Description 07/26/2021 Refill [facility] Vanessa Mills Refill Request Phill Mendez MD (FLUoxetine (PROZAC) [address] [place] MG capsule; FLUoxetine 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 documented as of this encounter Miscellaneous Notes Telephone Encounter - Massiel Cabrera RN - 07/26/2021 11:16 AM PLASTER MACHINE TENDER Medication requested: FLUoxetine (PROZAC) 20 MG capsule and FLUoxetine (PROZAC) 40 MG capsule Last office visit: 02/12/21 [facility] appointments: 09/05/21 Medication last refilled: 07/05/20 #90 + 3 refills Last qualifying labs: PHQ-9 SCORE 02/12/2021 PHQ-9 Total Score 1 ARELIS-7 SCORE 02/12/2021 Total Score 0 Keep upcoming appointment Routing refill request to provider for review/approval because: Drug interaction warning FLUOXETINE + MELOXICAM Massiel Cabrera MS RN- 07/26/21 11:20 AM TER MACHINE TENDER documented in this encounter Plan of Treatment Not on filedocumented as of this encounter Visit Diagnoses Diagnosis Depression Major depressive disorder, single episod e, unspecified documented in this encounter Additional Health Concerns Assessment Noted Time PHQ-9 Depression Total Score: 1 02/12/2021 3:18 PM CDT documented as of this encounter Care Teams Motorcycle Tester Relationship Specialty Start Date End Date Vanessa Mills MD PCP - General Internal Medicine 07/01/[address] [place] [address] Vanessa Mills MD Assigned PCP 01/11/[address] [place] [phone] documented as of this encounter
--- OUTSIDE RECORDS SUMMARY | 2022-04-16 19:35 | XMS_ITS | Encounter Summary ---
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 documented as of this encounter Plan of Treatment Not on filedocumented as of this encounter Visit Diagnoses Not on filedocumented in this encounter Additional Health Concerns Assessment Noted Time PHQ-9 Depression Total Score: 0 09/05/2021 1:36 PM PLASTIC BATTERY ASSEMBLER documented as of this encounter Care Teams Accounting File Clerk Relationship Specialty Start Date End Date Vanessa Mills MD PCP - General Internal Medicine 07/01/[address] [place] [address] Vanessa Mills MD Assigned PCP 01/11/[address] [place] [address] documented as of this encounter
--- OUTSIDE RECORDS SUMMARY | 2022-04-16 19:35 | XMS_ITS | Encounter Summary ---
:1955 Author Organization [place] Address [address] [place] [address]. [place] [address] Care Team Providers Name Role Phone Vanessa Mills MD Primary Care Provider [phone] Vanessa Mills MD Unavailable [phone] Reason for Referral CV Testing (Routine) - Pending Review Specialty Diagnoses / Procedures Referred By Contact Refer red To Contact Diagnoses Aortic root dilation (H) Vanessa Mills MD Procedures Echocardiogram Complete ZZHC TTE W/DOPPLER, COMPLETE ZZHC ECHO COMPLETE W DOPPLER W CONTRAST ZZHC ECHO COMPLETE W DOPPLER W/O CONTRAST ZZHC IV PUSH SINGLE, INITIAL SUBSTANCE ZZHC US GUIDE FOR PERICARDIOCENTESIS [address] [place] A ZZHC ECHO MYOCARD BX ZZC INJECTION, PERFLUTREN LIPID MICROSPHERES, PER ML ZZHC STATISTIC IV PUSH SINGLE INITIAL SUBSTANCE TN ECHO MYOCARD BX TN INJECTION, PERFLUTREN LIPID MICROSPHERES, PER ML TN TTE W/DOPPLER, [place] [address] TN IV PUSH SINGLE, INITIAL S UBSTANCE TN TTE W/DOPPLER, COMPLETE TN TTE W/DOPPLER, COMPLETE HC US GUIDE FOR PERICARDIOCENTESIS HC ECHO MYOCARD BX HC IV PUSH SINGLE, INITIAL SUBSTANCE HC STATISTIC IV PUSH SINGLE INITIAL SUBSTANCE HC ECHO COMPLETE W DOPPLER W CONTRAST HC ECHO COMPLETE W DOPPLER W/O CONTRAST Referral ID Status Reason Start Date Expiration Date Visits V isits Requested Authorized [id number] Pending 11/28/2021 11/28/2022 1 1 Review Reason for Visit Reason Comments Hypertension Check in Encounter Details Date Type Department Care Team Description 11/28/2021 Office Visit [facility] Vanessa Mills Essential hypertension (Prim kobe Dx); Phill Mendez MD Aortic root dilation (H) Building [address] [place] [address], [address] [place], [place] [phone] Social History Tobacco Use Types Packs/Day Years Used Date Never Smoker Smokeless Tobacco: Never Used Alcohol Use Standard Drinks/Week Comments Yes 0 (1 standard drink = 0.6 oz pure alcoho l) 1 glass of wine per week 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 Date Recorded 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 documented as of this encounter Last Filed Vital Signs Vital Sign Reading Time Taken Comments Blood Pressure 157/81 11/28/2021 2:01 PM CDT Pulse 58 11/28/2021 2:01 PM CDT Temperature 36.4 ??C (97.6 ??F) 11/28/2021 2:01 PM CDT Respiratory Rate - - Oxygen Saturation 98% 11/28/2021 2:01 PM CDT Inhaled Oxygen Concentration - - Weight 83.9 kg (185 lb 0.6 oz) 11/28/2021 2:01 PM CDT Height 160.1 cm (5' 3.03) 11/28/2021 2:01 PM CDT Body Mass Index 32.75 11/28/2021 2:01 PM CDT documented in this encounter Patient Instructions Patient InstructionsVanessa Mills MD - 11/28/2021 2:40 PM CDT Take blood pressure readings at home Schedule follow up visit in the next 4-6 wks Bring BP machine to clinic Take amlodipine and losartan at the same time. documented in this encounter Progress Notes Vanessa Mills MD - 11/28/2021 2:20 PM CDT Valeri Keenan is a 66 year old female here for the following issues: Essential hypertension Jihan takes amlodipine 10 mg daily for the treatment of HTN. She has been on losartan and hydrochlorothiazide in the past, believes that these were discontinue due to low BP. Her BP is above target range today. Not checking BP at home. Has some ankle swelling when it is warm outside, began last summer. Endorses occasional fluttering in her chest. Walking between 8,000 and 10,000 steps per day, no exercise intolerance. She has lost about 11 lbs since Aug 2021 after starting [employer], enjoying this. BP Readings from Last 3 Encounters: 11/28/21 (!) 157/81 09/05/21 (!) 143/82 05/23/21 134/79 Wt Readings from Last 4 Encounters: 11/28/21 83.9 kg (185 lb 0.6 oz) 09/05/21 89 kg (196 lb 1.9 oz) 05/23/21 88.9 kg (196 lb) 02/12/21 86.3 kg (190 lb 4 oz) Sun sensitivity Jihan reports that she has become sun sensitive. Gets tingling and stinging, like I put mint cream on, with sun exposure despite wearing sunscreen and not getting burned. Heat also bothers her skineven if it is covered with clothing. Symptoms occur within seconds of being in the sun. Develops itchiness a couple of days later. No rash. She wonders if this is a side effect of the amlodipine. Had been on celecoxib in the past, which does list sun sensitivity as a side effect, but has switched to meloxicam. Spoke to her vice president tax about her sensitivity when she was taking celecoxib, cause was not conclusively determined. Aortic root dilation (H) I referred Jihan for an echocardiogram at our 03/25/16 visit due to new RUSB murmur on exam. Echo on 04/08/16 found normal left ventricular systolic function. The visual ejection fraction is estimated at 55-60%. There is borderline concentric left ventricular hypertrophy. No hemodynamically significant valvular aortic stenosis noted and no aortic regurgitation is present. There is trace mitral regurgitation. Borderline aortic root dilatation above the ST ridge noted and the aorta is 3.7 cm. Repeat echoon 07/23/17 was not significantly changed from previous. No family hx of aortic aneurysm. Father had heart attacks at age 53 and 58, second was fatal (widowmaker). Patient Active Problem List Diagnosis ??? Headache ??? Female stress incontinence ??? Other specified menopausal and postmenopausal disorder ??? iamLUMBAGO ??? Hypothyroidism ??? Obesity ??? Malignant neoplasm of female breast (H) ??? Constipation ? ? HYPERLIPIDEMIA LDL GOAL <130 ??? Osteoarthritis ??? Depression ??? Hypertension ??? Heart murmur Current Outpatient Medications Medication Sig Dispense Refill ??? acetaminophen (TYLENOL) 500 MG tablet Take 2 tablets by mouth daily ??? amLODIPine (NORVASC) 10 MG tablet Take 1 tablet (10 mg) by mouth daily 90 tablet 3 ??? FLUoxetine (PROZAC) 20 MG capsule Take along with 40mg dose daily 90 capsule 3 ??? FLUoxetine (PROZAC) 40 MG capsule Take one daily with 20mg capsule 90 capsule 3 ??? LEVOTHYROXINE SODIUM 175 MCG OR TABS Take 137 mcg by mouth 30 0 ??? meloxicam (MOBIC) 15 MG tablet Take 1 tablet (15 mg) by mouth daily 90 tablet 3 Allergies Allergen Reactions ??? Ancef [Cefazolin Sodium] Rash ??? Meperidine nausea ??? Morphine Nausea and dizziness EXAM BP (!) 157/81 Pulse 58 Temp 97.6 ??F (36.4 ??C) Ht 1.601 m (5' 3.03) Wt 83.9 kg (185 lb 0.6oz) SpO2 98% BMI 32.75 kg/m?? BP recheck: 152/88 Gen: Alert, pleasant, NAD COR: S1,S2, 2/6 murmur RUSB Lungs: CTA bilaterally, no rhonchi, wheezes or rales Ext: no peripheral edema, pulses full Assessment: (I10) Essential hypertension (primary encounter diagnosis) Comment: BP high, above target range Plan: losartan (COZAAR) 25 MG tablet Start losartan 25 mg once daily, Rx for 3 month supply sent in today. Continue amlodipine 10 mg daily, OK to take medications together. Resume checking BP at home and recording readings. Encouraged tocontinue with exercise and dietary changes, intentional weight loss. (I77.810) Aortic root dilation (H) Comment: noted on 2015 echo, stable in 2017 echo, no family hx of aortic aneurysm Plan: Echocardiogram Complete Repeat echocardiogram ordered today, she is asymptomatic RTC in 4-6 weeks for a BP and medication recheck. Instructed to bring home BP cuff into clinic at that time. Will also review echocardiogram results if completed by that time. Vanessa Mills MD Internal Medicine/Pediatrics I, Kiara Beckham, am serving as a scribe to document services personally performed by Dr. Vanessa Mills, based on data collection and the provider's statements to me. Dr. Mills has reviewed, edited, and approved the above note. documented in this encounter Plan of Treatment Scheduled Orders Name Type Priority Associated Order Schedule Diagnoses Echocardiogram Complete Echocardiography Routine Aortic root Expected: dilation (H) 12/27/2021 (Approximate), Expires: 11/27/2022 documented as of this encounter Visit Diagnoses Diagnosis Essential hypertension - Primary Unspecified essential hypertension Aortic root dilation (H) Aortic ectasia, unspecified site documented in this encounter Additional Health Concerns Assessment Noted Time PHQ-9 Depression Total Score: 0 09/05/2021 1:36 PM PHARMACOLOGY ASSOCIATE documented as of this encounter Care Teams Franchise Broker Relationship Specialty Start Date End Date Vanessa Mills MD PCP - General Internal Medicine 07/01/[address] [place] [address] [phone] Vanessa Mills MD Assigned PCP 01/11/21 [address] [place] [address] documented as of this encounter
--- OUTSIDE RECORDS SUMMARY | 2022-04-16 19:35 | XMS_ITS | Encounter Summary ---
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 documented as of this encounter Plan of Treatment Not on filedocumented as of this encounter Visit Diagnoses Not on filedocumented in this encounter Additional Health Concerns Assessment Noted Time PHQ-9 Depression Total Score: 2 07/05/2020 1:31 PM LEG ASSEMBLER documented as of this encounter Care Teams Escrow Manager Relationship Specialty Start Date End Date Vanessa Mills MD PCP - General Internal Medicine 07/01/[address] [facility] [place], [place] [id number] documented as of this encounter
--- OUTSIDE RECORDS SUMMARY | 2022-04-16 19:35 | XMS_ITS | Encounter Summary ---
:1955 Author Organization [place] Address [address] [place] [address] Care Team Providers Name Role Phone Vanessa Mills MD Primary Care Provider [phone] Vanessa Mills MD Unavailable [phone] Encounter Details Date Type Department Care Team Description 04/26/2021 Orders Only [facility] Jessica Diego Pain in joint, pelvic Clinic [facility] [place]-[facility] region and thigh Laboratory [facility] (Primary Dx) [address] [facility] ORTHOPED[facility] [place], [place] [address] [address] [place] [address] (Wo rk) Social History Tobacco Use Types Packs/Day Years Used Date Never Smoker Smokeless Tobacco: Never Used Alcohol Use Standard Drinks/Week Comments Yes 0 (1 standard drink = 0.6 oz pure alcoho l) 1 glass of wine per week 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 Date Recorded 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 documented as of this encounter Plan of Treatment Not on filedocumented as of this encounter Results Erythrocyte sedimentation rate auto (04/26/2021 2:54 PM CDT) [facility] Method Time Signature Erythrocyte 8 0 - 30 04/26/2021 [facility] Sedimentation Rate mm/hr 3:17 PM CDT Specimen Anatomical Collection Method / Collection Time Recei kal Time (Source) Location / Volume Laterality Blood STRUCTURE OF RIGHT Venipuncture / 04/26/2021 2:54 09/0 04/2021 2:55 UPPER LIMB / Unknown PM CDT PM CDT Unknown Jessica Diego PA-C LAB - BLOOD ORDERABLES Performing Organization Address City/[facility] Phon e [place] [address] [facility] [address] [facility] (no room number, 1st floor of clinic) [facility] [place], [place] [phone] [facility] [address], [facility] Lab [address] [facility] (no room number, 1st floor [...] LAB - BLOOD ORDERABLES Performing Organization Address City/[facility] Phon [place] [address] Lab [address] [facility], [address] [place] [address], Lab [facility] [address] [facility], [address] 6707 documented in this encounter Visit Diagnoses Diagnosis Pain in joint, pelvic region and thigh - Primary documented in this encounter Additional Health Concerns Assessment Noted Time PHQ-9 Depression Total Score: 1 02/12/2021 3:18 PM CDT documented as of this encounter Care Teams Cutter Operator Helper Relationship Specialty Start Date End Date Vanessa Mills MD PCP - General Internal Medicine 11/14/[address] [place] [address] [phone] Vanessa Mills MD Assigned PCP 01/11/[address] [place] [address] [phone] documented as of this encounter
--- OUTSIDE RECORDS SUMMARY | 2022-04-16 19:35 | XMS_ITS | Encounter Summary ---
:1955 Author Organization [facility] Address [address] [place] [address] Care Team Providers Name Role Phone Vanessa Mills MD Primary Care Provider [phone] Vanessa Mills MD Unavailable [phone] Reason for Visit Reason Comments Wellness Visit Encounter Details Date Type Department Care Team Description 09/05/2021 Office Visit [facility] Vanessa Mills Encounter for Medicare hina maxwell wellness exam (Primary Dx); Phill Mendez MD Depression; Building [address] [place] Essential hypertension; 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 documented as of this encounter Last Filed Vital Signs Vital Sign Reading Time Taken Comments Blood Pressure 143/82 09/05/2021 1:31 PM CURTAIN WORKER Pulse 67 09/05/2021 1:31 PM CURTAIN WORKER Temperature 36.4 ??C (97.5 ??F) 09/05/2021 1:31 PM CURTAIN WORKER Respiratory Rate - - Oxygen Saturation 98% 09/05/2021 1:31 PM CURTAIN WORKER Inhaled Oxygen Concentration - - Weight 89 kg (196 lb 1.9 oz) 09/05/2021 1:31 PM CURTAIN WORKER Height 160.1 cm (5' 3.03) 09/05/2021 1:31 PM CURTAIN WORKER Body Mass Index 34.71 09/05/2021 1:31 PM CURTAIN WORKER documented in this encounter Patient Instructions Patient InstructionsVinny Mini, MA - 09/05/2021 1:40 PM CST Shingles vaccine Series of 2 Go to pharmacy for this vaccine series. Patient Education Personalized Prevention Plan You are due for the preventive services outlined below. Your care team is available to assist you inscheduling these services. If you have already completed any of these items, please share that information with your care team to update in your medical record. Health Maintenance Due Topic Date Due ??? Discuss Advance Care Planning Never done ??? Depression Action Plan Never done ??? Zoster (Shingles) Vaccine (1 of 2) Never done ??? Thyroid Function Lab 11/23/2008 ??? COVID-19 Vaccine (3 - Booster for Moderna series) 04/04/2021 ??? Flu Vaccine (1) 04/18/2021 ??? FALL RISK ASSESSMENT 07/05/2021 ??? Depression Assessment 08/14/2021 Preventive Health Recommendations See your health care provider every year to ?? Review health changes. ?? Discuss preventive care. ?? Review your medicines if your doctor has prescribed any. ?? You no longer need a yearly Pap test unless you've had an abnormal Pap test in the past 10 years.If you have vaginal symptoms, such as bleeding or discharge, be sure to talk with your provider about a Pap test. ?? Every 1 to 2 years, have a mammogram. If you are over 69, talk with your health care provider about whether or not you want to continue having screening mammograms. ?? Every 10 years, have a colonoscopy. Or, have a yearly FIT test (stool test). These exams will check for colon cancer. ?? Have a cholesterol test every 5 years, or more often if your doctor advises it. ?? Have a diabetes test (fasting glucose) every three years. If you are at risk for diabetes, you should have this test more often. ?? At age 65, have a bone density scan (DEXA) to check for osteoporosis (brittle bone disease). Shots: ?? Get a flu shot each year. ?? Get a tetanus shot every 10 years. ?? Talk to your doctor about your pneumonia vaccines. There are now two you should receive - Pneumovax (PPSV 23) and Prevnar (PCV 13). ?? Talk to your pharmacist about the shingles vaccine. ?? Talk to your doctor about the hepatitis B vaccine. Nutrition: ?? Eat at least 5 servings of fruits and vegetables each day. ?? Eat whole-grain bread, whole-wheat pasta and brown rice instead of white grains and rice. ?? Get adequate Calcium and Vitamin D. Lifestyle ?? Exercise at least 150 minutes a week (30 minutes a day, 5 days a week). This will help you control your weight and prevent disease. ?? Limit alcohol to one drink per day. ?? No smoking. ?? Wear sunscreen to prevent skin cancer. ?? See your dentist twice a year for an exam and cleaning. ?? See your eye doctor every 1 to 2 years to screen for conditions such as glaucoma, macular degeneration and cataracts. Personalized Prevention Plan You are due for the preventive services outlined below. Your care team is available to assist you inscheduling these services. If you have already completed any of these items, please share that information with your care team to update in your medical record. Health Maintenance Topic Date Due ??? ADVANCE CARE PLANNING Never done ??? DEPRESSION ACTION PLAN Never done ??? ZOSTER IMMUNIZATION (1 of 2) Never done ??? TSH W/FREE T4 REFLEX 11/23/2008 ??? COVID-19 Vaccine (3 - Booster for Moderna series) 04/04/2021 ??? INFLUENZA VACCINE (1) 04/18/2021 ??? FALL RISK ASSESSMENT 07/05/2021 ??? PHQ-9 08/14/2021 ??? DEXA 05/12/2022 ??? MEDICARE ANNUAL WELLNESS VISIT 09/05/2022 ??? COLORECTAL CANCER SCREENING 04/16/2023 ??? DTAP/TDAP/TD IMMUNIZATION (3 - Td or Tdap) 01/14/2024 ??? LIPID 07/05/2025 ??? HEPATITIS C SCREENING Completed ??? Pneumococcal Vaccine: 65+ Years Completed ??? IPV IMMUNIZATION Aged Out ??? MENINGITIS IMMUNIZATION Aged Out ??? HEPATITIS B IMMUNIZATION Aged Out ??? MAMMO SCREENING Discontinued AIN WORKER documented in this encounter Progress Notes Vanessa Mills MD - 09/05/2021 1:40 PM CST Valeri Keenan is a 66 yo woman with hx of headache, constipation, hypothyroidism, hyperlipidemia, HTN, heart murmur, depression, and hx of breast cancer s/p mastectomy. She is here for a preventiveexam. She is not fasting. She is up to date on eye exams and dental visits. Will be rechecking her eye pressure on 09/26/21 at [facility], started on eye drops. Brother has glaucoma. Also has cataracts. HCM Advanced Directive: not on file, information given COVID vaccine series: Moderna 09/20, unsure if she will get booster. Had COVID-19 infection in March 2021, lost taste and smell for about one week Other vaccinations: due for Shingrix vaccine series and influenza vaccine - declines flu Tdap due 2023 Mammogram: s/p bilateral mastectomies in 2006 Colonoscopy: last done 04/16/13, hx of adenomatous polyps on first screening and follow ups have since been clear, next due 2022 at [facility]. No change in bowel habits, chronic diarrhea due to hx of bowel resection. DEXA last done 05/12/19, -1.5 at the left femoral neck, due now Hearing concerns: Yes - slight bilateral hearing loss on audiogram 1 year ago, would like to go backthis year. Using drops to soften ear wax Fall Risk: No Independent at home: Yes Safe : Yes Memory concerns: No COGNITIVE SCREEN 1) Repeat 3 items (Banana, Picacho, Chair) 2) Clock draw: NORMAL 3) 3 item recall: Recalls 3 objects Results: 3 items recalled: COGNITIVE IMPAIRMENT LESS LIKELY Mini-CogTM Copyright S Abbie. Licensed by the author for use in [facility]; reprintedwith permission (sojung@[facility]). All rights reserved. Diet: wide variety including meat, cooking from home. Started Weight Watchers. Up 8 lb in past year Wt Readings from Last 4 Encounters: 09/05/21 89 kg (196 lb 1.9 oz) 05/23/21 88.9 kg (196 lb) 02/12/21 86.3 kg (190 lb 4 oz) 07/05/20 85.6 kg (188 lb 12 oz) Body mass index is 34.71 kg/m??. History of breast cancer Jihan was diagnosed with breast cancer of the right breast in 2006. ??Mammogram identified calcifications. 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 She underwent bilateral mastectomies (left prophylactic) in 2006 with reconstruction (implants). She is doing well Hx of recent lumbar discectomy Jihan developed pain to the point where she was unable to bear weight on her left leg in March 2021. Had a L3-L4 microdiscectomy on 05/29/21 at [facility], pain was improved immediately after surgery. Developed a seroma at surgical site that was treated and has since resolved. She was inactive for a few months during recovery, now walking 8K-10K steps per day. Depression Jihan has history of depression, treated with fluoxetine 60 mg (40 mg + 20 mg) daily. Mood has been good and she wishes to continue medication. PHQ 02/12/2021 02/12/2021 09/05/2021 PHQ-9 Total Score 1 1 0 Q9: Thoughts of better off /self-harm past 2 weeks Not at all Not at all Not at all ARELIS-7 SCORE 07/05/2020 02/12/2021 09/05/2021 Total Score - - - Total Score 3 0 0 Osteoarthritis Jihan has a longstanding history of osteoarthritis, affecting many joints. She has been taking meloxicam 15mg daily for this (originally prescribed by her orthopedic surgeon), has reported that her arthritis symptoms are well controlled with medication. Occasional dysphagia, nothing progressive. Denies heartburn or acid reflux. Hypertension Jihan takes amlodipine 10 mg daily for the treatment of HTN. Her BP is slightly above target range today. Not checking BP at home. BP Readings from Last 3 Encounters: 09/05/21 (!) 143/82 10/06/21 134/79 02/12/21 137/70 Hypothyroidism Jihan has a hx of hypothyroidism for which she takes levothyroxine 137 mcg daily, dose recently decreased from 175 mcg daily. Follows with endocrinology for management. Health Maintenance Topic Date Due ??? ADVANCE CARE PLANNING Never done ??? DEPRESSION ACTION PLAN Never done ??? ZOSTER IMMUNIZATION (1 of 2) Never done ??? TSH W/FREE T4 REFLEX 11/23/2008 ??? COVID-19 Vaccine (3 - Booster for Moderna series) 04/04/2021 ??? FALL RISK ASSESSMENT 07/05/2021 ??? PHQ-9 03/05/2022 ??? DEXA 05/12/2022 ??? MEDICARE ANNUAL WELLNESS VISIT 09/05/2022 ??? COLORECTAL CANCER SCREENING 04/16/2023 ??? DTAP/TDAP/TD IMMUNIZATION (3 - Td or Tdap) 01/14/2024 ??? LIPID 07/05/2025 ??? HEPATITIS C SCREENING Completed ??? Pneumococcal Vaccine: 65+ Years Completed ??? INFLUENZA VACCINE Addressed ??? IPV IMMUNIZATION Aged Out ??? MENINGITIS [...] Past Surgical History: Procedure Laterality Date ??? CARPAL TUNNEL RELEASE RT/LT ??? COLONOSCOPY 04/16/2013 due 2022 ??? FOOT SURGERY RIGHT 2ND TOE SURGERY ??? FOOT SURGERY 2014 fusion of right foot ??? HC MASTECTOMY, SIMPLE, COMPLETE 03/2007 right with carcinoma, left prophylactic ??? HC THYROIDECTOMY 07/2007 total thyroidectomy ??? LAPAROTOMY EXPLORATORY 08/2018 lyses of adhesions. ileocolic resection for obstruction ??? SHOULDER SURGERY Left 07/2019 total shoulder replacement ??? ZZC APPENDECTOMY ??? ZZC VAG HYST,RMV TUBE/OVARY 08/2002 Fibroids, on HRT x 10 months, then D/C Family History Problem Relation Age of Onset ??? Neurologic Disorder Mother headaches ??? Arthritis Mother DJD ??? Hypertension Mother ??? Osteoporosis Mother ??? Cancer Mother 95 ?primary vs metastatic ??? C.A.D. Father [place] 53, at 58 ??? Neurologic Disorder Father [...] - colorectal No family hx of Social:?? 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 no STD hx? no Vasomotor sx: mild G 3 P 2 A 1 Self Breast exam: bilateral mastectomies, bilateral breast implants Current Outpatient Medications Medication Sig Dispense Refill ??? acetaminophen (TYLENOL EX ST ARTHRITIS PAIN) 500 MG tablet Take 2 tablets by mouth daily ??? amLODIPine (NORVASC) 10 MG tablet Take 1 tablet (10 mg) by mouth daily 90 tablet 0 ??? FLUoxetine (PROZAC) 20 MG capsule Take along with 40mg dose daily 90 capsule 1 ??? FLUoxetine (PROZAC) 40 MG capsule Take one daily with 20mg capsule 90 capsule 1 ??? LEVOTHYROXINE SODIUM 175 MCG OR TABS Take 137 mcg by mouth 30 0 ??? meloxicam (MOBIC) 15 MG tablet Take 1 tablet (15 mg) by mouth daily 90 tablet 3 Allergies Allergen Reactions ??? Ancef [Cefazolin Sodium] Rash ??? Meperidine nausea ??? Morphine Nausea and dizziness ROS CONSTITUTIONAL:NEGATIVE for fever, chills, Positive 8 lb weight gain. INTEGUMENTARY/SKIN: NEGATIVE for worrisome rashes, moles or lesions EYES: NEGATIVE for vision changes or irritation ENT/MOUTH: NEGATIVE for ear, mouth and throat problems RESP:NEGATIVE for significant cough or SOB BREAST: Bilateral mastectomies, now with bilateral implants, intact CV: NEGATIVE for chest pain, palpitations, ALLAN, orthopnea, PND or peripheral edema GI: NEGATIVE for nausea, abdominal pain, heartburn, or change in bowel habits :NEGATIVE for frequency, dysuria, or hematuria MUSCULOSKELETAL: severe osteoarthritis, stable NEURO: NEGATIVE for weakness, dizziness or paresthesias ENDOCRINE: NEGATIVE for polyuria/dipsia, temperature intolerance, skin/hair changes, thyroid diseasefollowed by endocrionlogist HEME/ALLERGY/IMMUNE: NEGATIVE for bleeding problems PSYCHIATRIC:Mood stable, on fluoxetine EXAM BP (!) 143/82 Pulse 67 Temp 97.5 ??F (36.4 ??C) Ht 1.601 m (5' 3.03) Wt 89 kg (196 lb 1.9 oz) SpO2 98% BMI 34.71 kg/m?? GENERAL APPEARANCE: Alert, pleasant, NAD EYES: PERRL, EOMI, conjunctiva clear HENT: TM normal bilaterally. Nose and mouth masked NECK: no adenopathy, well healed incision at base of neck RESP: lungs clear to auscultation bilaterally BREAST: Bilateral implants, intact, normal without masses, no palpable axillary masses or adenopathy CV: regular rate and rhythm, normal S1 S2, 2/6 murmur at RUSB, no carotid bruits ABDOMEN: soft, nontender, without HSM or masses. Bowel sounds normal MS: extremities normal- no gross deformities noted, no tender, hot or swollen joints. Healed incision at the lumbar spine, no evidence for seroma. SKIN: no suspicious lesions or rashes NEURO: Normal strength and tone, sensory exam grossly normal, DTR normoreflexive in upper and lower extremities PSYCH: mentation appears normal. and affect normal/bright. EXT: no peripheral edema, pedal pulses palpable Assessment: (Z00.00) Encounter for Medicare annual wellness exam (primary encounter diagnosis) Comment: 66 year old female in good health Plan: Lipid Panel, Comprehensive metabolic panel, CBC with platelets Today we discussed ways to maintain a healthy lifestyle with sensible eating, regular exercise and self cares. We dicussed calcium and Vitamin D intake, vaccinations and preventive health screens. Healthcare directive information given today. (F32.9) Depression Comment: doing very well with fluoxetine 60 mg daily Plan: DEPRESSION ACTION PLAN (DAP), FLUoxetine (PROZAC) 20 MG capsule, FLUoxetine (PROZAC) 40 MG capsule Medications refilled x 1 year. (I10) Essential hypertension Comment: BP slightly above target range Plan: amLODIPine (NORVASC) 10 MG tablet Continue medication, refilled x 1 year. (M15.8) Other osteoarthritis involving multiple joints Comment: on meloxicam 15 mg daily, requesting refills Plan: meloxicam (MOBIC) 15 MG tablet Refilled x 1 year. Vanessa Mills MD Internal Medicine/Pediatrics I, Kiara Beckham, am serving as a scribe to document services personally performed by Dr. Vanessa Mills, based on data collection and the provider's statements to me. Dr. Mills has reviewed, edited, and approved the above note. AIN WORKER documented in this encounter Nursing Notes Mini Casillas MA - 09/05/2021 1:40 PM CST 66 year old Chief Complaint Patient presents with ??? Wellness Visit Blood pressure (!) 143/82, pulse 67, temperature 97.5 ??F (36.4 ??C), height 1.601 m (5' 3.03), weight 89 kg (196 lb 1.9 oz), SpO2 98 %, not currently . Body mass index is 34.71 kg/m??. Patient Active Problem List Diagnosis ??? Headache ??? Female stress incontinence ??? Other specified menopausal and postmenopausal disorder ??? iamLUMBAGO ??? Hypothyroidism ??? Obesity ??? Malignant neoplasm of female breast (H) ??? Constipation ? ? HYPERLIPIDEMIA LDL GOAL <130 ??? Osteoarthritis ??? Depression ??? Hypertension ??? Heart murmur Wt Readings from Last 2 Encounters: 09/05/21 89 kg (196 lb 1.9 oz) 05/23/21 88.9 kg (196 lb) BP Readings from Last 3 Encounters: 09/05/21 (!) 143/82 05/23/21 134/79 02/12/21 137/70 Current Outpatient Medications Medication ??? acetaminophen (TYLENOL EX ST ARTHRITIS PAIN) 500 MG tablet ??? amLODIPine (NORVASC) 10 MG tablet ??? FLUoxetine (PROZAC) 20 MG capsule ??? FLUoxetine (PROZAC) 40 MG capsule ??? LEVOTHYROXINE SODIUM 175 MCG OR TABS ??? meloxicam (MOBIC) 15 MG tablet No current facility-administered medications for this visit. Social History Tobacco Use ??? Smoking status: Never Smoker ??? Smokeless tobacco: Never Used Substance Use Topics ??? Alcohol use: Yes Comment: 1 glass of wine per week ??? Drug use: No Health Maintenance Due Topic Date Due ??? ADVANCE CARE PLANNING Never done ??? DEPRESSION ACTION PLAN Never done ??? ZOSTER IMMUNIZATION (1 of 2) Never done ??? TSH W/FREE T4 REFLEX 11/23/2008 ??? COVID-19 Vaccine (3 - Booster for Moderna series) 04/04/2021 ??? FALL RISK ASSESSMENT 07/05/2021 ??? PHQ-9 08/14/2021 Lab Results Component Value Date PAP NIL 12/05/2010 September 05, 2021 1:32 PM AIN WORKER documented in this encounter Plan of Treatment Not on filedocumented as of this encounter Procedures Procedure Name Priority Date/Time Associated Comments Diagnosis LIPID PROFILE Routine 09/05/2021 2:30 PM Encounter for Results for this [facility] annual procedure ar e in wellness exam the results section. COMPREHENSIVE Routine 09/05/2021 2:30 PM Encounter for Results for this METABOLIC PANEL CURTAIN WORKER Medicare annual procedure are in wellness exam the results section. CBC WITH PLATELETS Routine 09/05/2021 2:30 PM Encounter for Re sults for this [facility] Medicare annual procedure ar e in wellness exam the results section. documented in this encounter Results CBC with platelets (09/05/2021 2:30 PM CURTAIN WORKER) P athologist Signature WBC Count 5.8 4.0 - 11.0 09/05/2021 [facility] 10e3/uL 2:44 PM [facility] LABORATORY RBC Count 4.69 3.80 - 09/05/2021 [facility] 5.20 2:44 PM [facility] WORK[facility] LABORATORY 10e6/uL Hemoglobin 13.5 11.7 - 09/05/2021 [facility] 15.7 g/dL 2:44 PM [facility] LABORATORY Hematocrit 41.6 35.0 - 09/05/2021 [facility] 47.0 % 2:44 PM [facility] LABORATORY MCV 89 78 - 100 09/05/2021 [facility] fL 2:44 PM [facility] MCH 28.8 26.5 - 09/05/2021 [facility] 33.0 pg 2:44 PM [facility] LABORATORY MCHC 32.5 31.5 - 09/05/2021 [facility] 36.5 g/dL 2:44 PM [facility]OR[facility]ORY RDW 13.9 10.0 - 09/05/2021 [facility] 15.0 % 2:44 PM [facility] LABOR[facility]ORY Platelet Count 328 150 - 450 09/05/2021 [facility] 10e3/uL 2:44 PM [facility] WORK[facility] LABORATORY Specimen Anatomical Collection Method / Collection Time Recei kal Time (Source) Location / Volume Laterality Blood STRUCTURE OF LEFT Venipuncture / 09/05/2021 2:30 09/05 2:35 UPPER LIMB / Unknown PM CURTAIN WORKER PM CURTAIN WORKER Unknown Vanessa Mills MD LAB - BLOOD ORDERABLES Performing Organization Address City/State/ZIP Code Phon e Number [facility] [place] [address] A Comprehensive metabolic panel (09/05/2021 2:30 PM CURTAIN WORKER) P athologist Signature Sodium 139 133 - 144 09/05/2021 [facility] mmol/L 9:23 PM CURTAIN WORKER Potassium 3.9 3.4 - 5.3 09/05/2021 [facility] mmol/L 9:23 PM CURTAIN WORKER Chloride 105 94 - 109 09/05/2021 [facility] mmol/L 9:23 PM CURTAIN WORKER Carbon Dioxide 28 20 - 32 09/05/2021 [facility] (CO2) mmol/L 9:23 PM CURTAIN WORKER Anion Gap 6 3 - 14 09/05/2021 [facility] mmol/L 9:23 PM CURTAIN WORKER Urea Nitrogen 21 7 - 30 09/05/2021 [facility] mg/dL 9:23 PM CURTAIN WORKER Creatinine 0.62 0.52 - 09/05/2021 [facility] 1.04 mg/dL 9:23 PM CURTAIN WORKER Calcium 9.4 8.5 - 10.1 09/05/2021 [facility] mg/dL 9:23 PM CURTAIN WORKER Glucose 92 70 - 99 09/05/2021 [facility] mg/dL 9:23 PM CURTAIN WORKER Alkaline 82 40 - 150 09/05/2021 [facility] Phosphatase U/L 9:23 PM CURTAIN WORKER AST 29 0 - 45 U/L 09/05/2021 [facility] 9:23 PM CURTAIN WORKER ALT 40 0 - 50 U/L 09/05/2021 [facility] 9:23 PM CURTAIN WORKER Protein Total 7.7 6.8 - 8.8 09/05/2021 [facility] g/dL 9:23 PM CURTAIN WORKER Albumin 4.3 3.4 - 5.0 09/05/2021 [facility] g/dL 9:23 PM CURTAIN WORKER Bilirubin Total 0.4 0.2 - 1.3 09/05/2021 [facility] mg/dL 9:23 PM CURTAIN WORKER GFR Estimate >90 >60 09/05/2021 [facility] mL/min/1.7 9:23 PM CURTAIN WORKER 3m2 Comment: Effective August 07, 2021 eGF Rcr in adults is calculated using the 2020 CKD-EPI creatinine equation which includ es age and gender (Fermin et al., NEJM, DOI: 10.1056/CPNPkm4150545) Specimen Anatomical Collection Method / Collection Time Recei kal Time (Source) Location / Volume Laterality Blood STRUCTURE OF LEFT Venipuncture / 09/05/2021 2:30 09/05 2:35 UPPER LIMB / Unknown PM CURTAIN WORKER PM CURTAIN WORKER Unknown Vanessa Mills MD LAB - BLOOD ORDERABLES Performing Organization Address City/State/ZIP Code Phon e Number [facility] [address] Lab [address], Room 3-580 Lipid Panel (09/05/2021 2:30 PM CURTAIN WORKER) [facility] Method Time Signature Cholesterol 154 <200 mg/dL 09/05/2021 [facility] 9:24 PM CURTAIN WORKER Triglycerides 122 <150 mg/dL 09/05/2021 [facility] 9:24 PM CURTAIN WORKER Direct Measure HDL 58 >=50 mg/dL 09/05/2021 [facility] 9:24 PM CURTAIN WORKER LDL Cholesterol 72 <=100 09/05/2021 [facility] Calculated mg/dL 9:24 PM CURTAIN WORKER Non HDL 96 <130 mg/dL 09/05/2021 [facility] Cholesterol 9:24 PM CURTAIN WORKER Patient Fasting > No 09/05/2021 [facility] RY 8hrs? 9:24 PM CURTAIN WORKER Specimen Anatomical Collection Method / Collection Time Recei kal Time (Source) Location / Volume Laterality Blood STRUCTURE OF LEFT Venipuncture / 09/05/2021 2:30 09/05 2:35 UPPER LIMB / Unknown PM CURTAIN WORKER PM CURTAIN WORKER Unknown Narrative [facility] - 09/05/2021 9:24 PM CURTAIN WORKER Cholesterol Desirable: ??<200 mg/dL Triglycerides Normal: ??Less than 150 mg/dL Borderline High: ??150-199 mg/dL High: ??200-499 mg/dL Very High: ??Greater than or equal to 50 0 mg/dL Direct Measure HDL Female: ??Greater than or equal to 50 mg /dL Male: ??Greater than or equal to 40 mg/d L LDL Cholesterol Desirable: ??<100mg/dL Above Desirable: ??100-129 mg/dL Borderline High: ??130-159 mg/dL High: ??160-189 mg/dL Very High: ??>= 190 mg/dL Non HDL Cholesterol Desirable: ??130 mg/dL Above Desirable: ??130-159 mg/dL Borderline High: ??160-189 mg/dL High: ??190-219 mg/dL Very High: ??Greater than or equal to 22 0 mg/dL Vanessa Mills MD LAB - BLOOD ORDERABLES Performing Organization Address City/State/ZIP Code Phon e Number [facility] [place] [address] [phone] Lab [address] [facility], Room 3-580 documented in this encounter Visit Diagnoses Diagnosis Encounter for Medicare annual wellness e xam - Primary Routine general medical examination at a health care facility Depression Major depressive disorder, single episod e, unspecified Essential hypertension Unspecified essential hypertension Other osteoarthritis involving multiple joints documented in this encounter Additional Health Concerns Assessment Noted Time PHQ-9 Depression Total Score: 0 09/05/2021 1:36 PM CURTAIN WORKER documented as of this encounter Care Teams Sash Sticker Relationship Specialty Start Date End Date Vanessa Mills MD PCP - General Internal Medicine 07/01/[address] [place] [address] [phone] Vanessa Mills MD Assigned PCP 01/11/[address] [place] [address] [phone] documented as of this encounter
--- OUTSIDE RECORDS SUMMARY | 2022-04-16 19:35 | XMS_ITS | Encounter Summary ---
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
--- OUTSIDE RECORDS SUMMARY | 2022-04-16 19:35 | XMS_ITS | Clinical Summary ---
:1955 Author Organization [facility] Address [address] [address] Phone Care Team Providers Name Role Phone Vanessa Mills MD Primary Care Provider Social History Tobacco Use Types Packs/Day Years Used Date Never Assessed 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 Date Recorded Female 05/14/2021 8:11 PM CDT Job Start Date Occupation Industry Not on file Not on file Not on file Plan of Treatment Health Maintenance Due Date Last Done Comments MAMMO,SCREEN 1955 COVID-19 Vaccine (#1) 1955 PERTUSSIS (Standing Order) 1973 TETANUS (Standing Order) 1973 Shingrix (Zoster recombinant) vaccine (Standing Order) 4 (1 of 2) DXA,FEMALES AGE 65 OR GREATER 2019 Pneumococcal Vaccine: 65+ yrs (Standing Order) (1 - 2019 PCV) Influenza Vaccine Seasonal (Standing Order) (#1) 2022 Insurance Payer Benefit Plan Subscriber ID Effective Phone Address Typ e / Group Dates MEDICARE MEDICARE [id number] 2019-Pres [phone] [facility] care PART A & B ent [id number] [employer] ATTN CLAIMS [address] [place] [address] [employer] [facility] [place] [id number] 2019-Pres [phone] [address] BCBS BLUE SHIELD 1B ent [phone] [place], [place] Commer cial [id number] Care Teams Chemical Economist Relationship Specialty Start Date End Date Vanessa Mills MD PCP - General Internal Medicine 05/16/21 [address] [place] [address]
--- OUTSIDE RECORDS SUMMARY | 2022-04-16 19:35 | XMS_ITS | Clinical Summary ---
:1955 Author Organization [facility] Address [address] [place] [address] Care Team Providers Name Role Phone Vanessa Mills MD Primary Care Provider [phone] Vanessa Mills MD Unavailable [phone] Allergies Active Allergy Reactions Severity Noted Date Comments Cefazolin Sodium 09/24/2007 Rash Meperidine 08/30/2003 nausea Morphine 07/27/2007 Nausea and dizz iness Medications Medication Sig Dispensed Refills Start Date End Date Status LEVOTHYROXINE SODIUM 175 Take 137 mcg by 30 0 9 Active MCG OR TABS mouth acetaminophen (TYLENOL) Take 2 tablets 0 Active 500 MG tablet by mouth daily FLUoxetine (PROZAC) 20 Take along with 90 capsule 3 09/05/2021 Active MG capsuleIndications: 40mg dose daily Major depression, chronic amLODIPine (NORVASC) 10 Take 1 tablet 90 tablet 3 09/05/2021 Active MG tabletIndications: (10 mg) by mouth Essential hypertension daily FLUoxetine (PROZAC) 40 Take one daily 90 capsule 3 09/05/2021 Active MG capsuleIndications: with 20mg Major depression, capsule chronic meloxicam (MOBIC) 15 MG Take 1 tablet 90 tablet 3 09/05/2021 Active tabletIndications: Other (15 mg) by mouth osteoarthritis involving daily multiple joints losartan (COZAAR) 25 MG Take 1 tablet 90 tablet 1 01/09/2022 Active tablet (25 mg) by mouth daily ibuprofen (ADVIL/MOTRIN) Take 1 tablet 0 01/23/2022 Active 800 MG tablet (800 mg) by mouth 3 times daily as needed for moderate pain methylPREDNISolone Take 1 tablet (4 21 tablet 0 01/23/2022 Active (MEDROL DOSEPAK) 4 MG mg) by mouth tablet therapy pack Follow Package Directions Active Problems Problem Noted Date Heart murmur 06/05/2017 Osteoarthritis 03/25/2016 Overview: Hands, multiple joints, followed by Melyssa john Depression 03/25/2016 Hypertension 03/25/2016 HYPERLIPIDEMIA LDL GOAL <130 09/27/2009 Constipation 02/15/2009 Obesity 04/11/2006 Overview: Problem list name updated by automated p rocess. Provider to review Hypothyroidism 04/10/2006 Overview: Problem list name updated by automated p rocess. Provider to review [email or web address] 11/26/2005 Headache 09/27/2004 Overview: Problem list name updated by automated p rocess. Provider to review Female stress incontinence 09/27/2004 Other specified menopausal and postmenopausal disorder 09/27/2004 Overview: On HRT x 9months, then DC Malignant neoplasm of female breast Overview: Formatting of this note is dif ferent from the original. 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 Mastectomy 03/16/2007 Problem list name updated by automated p rocess. Provider to review Encounters Date Type Specialty Care Team Description 03/01/2022 Lab Lab Other pruritus (Primary Dx); Intrinsic aller gic eczema; Actinic dermati tis; Melanocytic nev i of trunk; Other skin blair ges due to chronic exposure to nonionizing radiation; Other melanin h yperpigmentation; Other seborrhei c keratosis; Hemangioma of s kin and subcutaneous tissue; Vitamin D defic iency 03/01/2022 Travel 01/23/2022 Orders Only Family Practice Allyssa King, EMT Status post lumbar microdiscectomy (Primary Dx) from Last 3 Months Immunizations Name Administration Dates Next Due HEPA 04/30/2005, 10/09/2004 HepB 08/30/2003 Influenza Quad, Recombinant, pf(RIV4) (Flublok) 07/05/2020 Mantoux Tuberculin Skin Test 11/29/2008, 09/25/2004 Pneumococcal 23 valent 07/05/2020 Poliovirus, inactivated (IPV) 10/09/2004 TD (ADULT, 7+) 08/30/2003 TDAP Vaccine (Adacel) 01/13/2014 Typhoid IM 05/22/2005 Typhoid Oral 05/22/2005, 10/09/2004 Yellow Fever 05/22/2005 05/22/2015 Family History Medical History Relation Comments Arthritis Brother 1 Hypertension Brother 1 Hypertension Brother 2 Pacemaker Brother 2 Prostate Cancer Brother 2 Neurologic Disorder Brother 3 parkinson's 63 C.A.D. Father MD 53, at 58 Neurologic Disorder Father Parkinsons Cerebrovascular Disease Maternal Grandmother Arthritis Mother DJD Cancer Mother ?primary vs metastat ic Hypertension Mother Neurologic Disorder Mother headaches Osteoporosis Mother Cancer Other niece wtih squamous cell ca of tongue, age 42, nonsmoker/no Etoh Circulatory Paternal Grandmother Brain Aneurysm Osteoporosis Paternal Grandmother Breast Cancer No family hx of Cancer - colorectal No family hx of Relation Status Comments Brother 1 Alive Brother 2 Alive Brother 3 Father (Age 58) Maternal Grandfather Maternal Grandmother Mother Other Paternal Grandfather Paternal Grandmother Son 1 Alive Son 2 Alive Social History Tobacco Use Types Packs/Day Years Used Date Never Smoker Smokeless Tobacco: Never Used Alcohol Use Standard Drinks/Week Comments Yes 0 (1 standard drink = 0.6 oz pure alcoho l) 1 glass of wine per week 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 Date Recorded 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 Last Filed Vital Signs Vital Sign Reading Time Taken Comments Blood Pressure 128/70 01/09/2022 2:36 PM CDT Pulse 59 01/09/2022 1:56 PM CDT Temperature 36.5 ??C (97.7 ??F) 01/09/2022 1:56 PM CDT Respiratory Rate 15 02/12/2021 2:48 PM CDT Oxygen Saturation 98% 01/09/2022 1:56 PM CDT Inhaled Oxygen Concentration - - Weight 83.9 kg (185 lb 0.6 oz) 01/09/2022 1:56 PM CDT Height 160.5 cm (5' 3.19) 01/09/2022 1:56 PM CDT Body Mass Index 32.58 01/09/2022 1:56 PM CDT Plan of Treatment Health Maintenance Due Date Last Done Comments ADVANCE CARE PLANNING 1955 ANNUAL REVIEW OF HM ORDERS 1954 CT COLONOGRAPHY 1955 FIT-DNA (Cologuard) 1955 FIT 1955 FLEX SIG 1955 ZOSTER IMMUNIZATION (1 of 2004 2) TSH W/FREE T4 REFLEX 11/23/2008 11/24/2007, 09/24/2007, 07/27/2007, Additional history exists COLONOSCOPY 04/29/2018 04/29/2008, 05/15/2005 COLORECTAL CANCER 04/29/2018 SCREENING COVID-19 Vaccine (3 - 04/04/2021 11/02/2020, 10/04/2020 Booster for Moderna series) FALL RISK ASSESSMENT 07/05/2021 07/05/2020, 06/30/2019, 06/30/2019 Pneumococcal Vaccine: 65+ 07/05/2021 07/05/2020 Years (2 - PCV) PHQ-9 03/05/2022 09/05/2021, 02/12/2021, 07/05/2020, Additional history exists INFLUENZA VACCINE (#1) 2022 09/05/2021 (Declined), 07/05/2020, 06/30/2019 (Declined) DEXA 05/12/2022 05/12/2019, 05/12/2019, 08/04/2015, Additional history exists MEDICARE ANNUAL WELLNESS 09/05/2022 09/05/2021, 09/05/2021, VISIT 07/05/2020, Additional history exists DTAP/TDAP/TD IMMUNIZATION 01/14/2024 01/13/2014, 08/30/2003 (3 - Td or Tdap) LIPID 09/05/2026 09/05/2021, 07/05/2020, 01/13/2019, Additional history exists HEPATITIS B IMMUNIZATION Aged Out 08/30/2003 No long er eligible based on patient 's age to complete this topic IPV IMMUNIZATION Aged Out 10/09/2004 No longer eligi ble based on patient 's age to complete this topic MAMMO SCREENING Discontinued 02/27/2007, 04/18/2006, 01/24/2006, Additional history exists HEPATITIS C SCREENING Completed 03/25/2016, 08/30/2003 DEPRESSION ACTION PLAN Completed 09/05/2021 MENINGITIS IMMUNIZATION Aged Out No longe r eligible based on patient 's age to complete this topic Procedures Procedure Name Priority Date/Time Associated Diagnosis Comme nts SSA RO HUA ANTIBODY Routine 03/01/2022 10:08 Intrinsic allergi c Results for this IGG AM CDT eczema procedure are in Actinic dermatit is the results Melanocytic nevi of section. trunk Other skin changes due to chronic exposure to nonionizing radiation Other melanin hyperpigmentatio n Other seborrheic keratosis Hemangioma of skin and subcutaneous tissue Other pruritus SSB LA HUA ANTIBODY Routine 03/01/2022 10:08 Intrinsic allergi c Results for this IGG AM CDT eczema procedure are in Actinic dermatit is the results Melanocytic nevi of section. trunk Other skin changes due to chronic exposure to nonionizing radiation Other melanin hyperpigmentatio n Other seborrheic keratosis Hemangioma of skin and subcutaneous tissue Other pruritus ANTI NUCLEAR MARGARET IGG Routine 03/01/2022 10:08 Intrinsic allerg ic Results for this BY IFA WITH REFLEX AM CDT eczema procedure are in Actinic dermatit is the results Melanocytic nevi of section. trunk Other skin changes due to chronic exposure to nonionizing radiation Other melanin hyperpigmentatio n Other seborrheic keratosis Hemangioma of skin and subcutaneous tissue Other pruritus HUA ANTIBODY PANEL Routine 03/01/2022 10:08 Intrinsic allergic Results for this AM CDT eczema procedure are in Actinic dermatit is the results Melanocytic nevi of section. trunk Other skin changes due to chronic exposure to nonionizing radiation Other melanin hyperpigmentatio n Other seborrheic keratosis Hemangioma of skin and subcutaneous tissue Other pruritus ERYTHROCYTE Routine 03/01/2022 10:08 Intrinsic allergic Resul ts for this SEDIMENTATION RATE AM CDT eczema procedure are in AUTO Actinic dermatit is the results Melanocytic nevi of section. trunk Other skin changes due to chronic exposure to nonionizing radiation Other melanin hyperpigmentatio n Other seborrheic keratosis Hemangioma of skin and subcutaneous tissue Other pruritus VITAMIN D DEFICIENCY Routine 03/01/2022 10:08 Intrinsic allerg ic Results for this SCREENING AM CDT eczema procedure are in Actinic dermatit is the results Melanocytic nevi of section. trunk Other skin changes due to chronic exposure to nonionizing radiation Other melanin hyperpigmentatio n Other seborrheic keratosis Hemangioma of skin and subcutaneous tissue Other pruritus Vitamin D deficiency CRP INFLAMMATION Routine 03/01/2022 10:08 Intrinsic allergic R esults for this AM CDT eczema procedure are in Actinic dermatit is the results Melanocytic nevi of section. trunk Other skin changes due to chronic exposure to nonionizing radiation Other melanin hyperpigmentatio n Other seborrheic keratosis Hemangioma of skin and subcutaneous tissue Other pruritus from Last 3 Months Results SSB La HUA Antibody IgG (03/01/2022 10:08 AM CDT) Analysis Performed At Patho logist Time Signature SSB Margaret IgG 3.7 <7.0 U/mL 03/04/2022 [facility] Instrument 10:11 AM CDT CORE/PROT/END Value O SSB (La) Negative Negative 03/04/2022 [facility] Antibody IgG 10:11 AM CDT CORE/PROT/END O Specimen Anatomical Collection Method / Collection Time Recei kal Time (Source) Location / Volume Laterality Blood BLOOD SPECIMEN / Venipuncture / 03/01/2022 10:08 03/01 Unknown Unknown AM CDT 10:08 AM CDT Erica Jenkins MD LAB - BLOOD ORDERABLES Performing Organization Address City/State/ZIP Code Phon e Number [facility] CORE/PROT/ENDO [facility] [place] [place] [address] Core/Prot/Endo [address] [facility] [address] Building, Room 3[facility] SSA Ro HUA Antibody IgG (03/01/2022 10:08 AM CDT) Analysis Performed At Patho logist Time Signature SSA Margaret IgG <0.5 <7.0 U/mL 03/04/2022 [facility] Instrument 10:11 AM CDT CORE/PROT/END Value O SSA (Ro) Negative Negative 03/04/2022 [facility] Antibody IgG 10:11 AM CDT CORE/PROT/END O Specimen Anatomical Collection Method / Collection Time Recei kal Time (Source) Location / Volume Laterality Blood BLOOD SPECIMEN / Venipuncture / 03/01/2022 10:08 03/01 Unknown Unknown AM CDT 10:08 AM CDT Erica Jenkins MD LAB - BLOOD ORDERABLES Performing Organization Address City/[facility]/ZIP Code Phon e Number SPECIALTY CORE/PROT/ENDO [facility] [place] [place] [address] Core/Prot/Endo [address] [facility] [address], [address] Anti Nuclear Margaret IgG by IFA with Reflex (03/01/2022 10:08 AM CDT) Patholo gist Method Time Signature ELAYNE interpretation Negative Negative 03/04/2022 [facility]Y 1:40 PM CDT CORE/PROT/EN DO Comment: Negative: ?<1:40 Borderline Positive: ?? 1:40 - 1:80 Positive: ?>1:80 Specimen Anatomical Collection Method / Collection Time Recei kal Time (Source) Location / Volume Laterality Blood BLOOD SPECIMEN / Venipuncture / 03/01/2022 10:08 03/01 Unknown Unknown AM CDT 10:08 AM CDT Erica Jenkins MD LAB - BLOOD ORDERABLES Performing Organization Address City/[facility]/ZIP Code Phon e Number SPECIALTY CORE/PROT/ENDO Specialty [place], [place] [address] Core/Prot/Endo [address] [facility] [address] [facility], Room 3580 Vitamin D Deficiency (03/01/2022 10:08 AM CDT) P athologist Signature Vitamin D, 25 20 - 75 03/04/2022 SPECIALTY Total ug/L 11:05 AM CDT CORE/PROT/ENDO (25-Hydroxy) Specimen Anatomical Collection Method / Collection Time Recei kal Time (Source) Location / Volume Laterality Blood BLOOD SPECIMEN / Venipuncture / 03/01/2022 10:08 03/01 Unknown Unknown AM CDT 10:08 AM CDT Narrative [facility] CORE/PROT/ENDO - 03/04/2022 11:05 AM CDT Season, race, dietary intake, and treatment affect the concentration of 43-vwqgqlv-Ydwvtzv D. Values may decrease during winter months and in crease during summer months. Values 20- 29 ug/L may indicate Vitamin D insufficiency and values <20 ug/L may indicate Vitamin D deficiency. Vitamin D determination is routinely per formed by an immunoassay specific for 25 hydroxyvitamin D3. ??If an individual is on vitamin D2(ergocalciferol) supplementation, please specify 25 OH vitamin D2 and D3 level determination by LCMSMS test [id number]. Erica Jenkins MD LAB - BLOOD ORDERABLES Performing Organization Address City/State/ZIP Code Phon e Number [facility] CORE/PROT/ENDO [facility] [place] [place] [address] Core/Prot/Endo [address] [facility] [address] Building, Room 3-580 Erythrocyte sedimentation rate auto (03/01/2022 10:08 AM CDT) Patholo gist Method Time Signature Erythrocyte 9 0 - 30 03/01/2022 [facility] Sedimentation Rate mm/hr 10:22 AM CDT Specimen Anatomical Collection Method / Collection Time Recei kal Time (Source) Location / Volume Laterality Blood BLOOD SPECIMEN / Venipuncture / 03/01/2022 10:08 03/01 Unknown Unknown AM CDT 10:08 AM CDT Erica Jenkins MD LAB - BLOOD ORDERABLES Performing Organization Address City/State/ZIP Code Phon e Number [place] [address] [phone] [facility] [address] [facility] (no room number, 1st floor of clinic) [facility] [place], [place] [phone] [facility] [phone] Lab [address] [facility] (no room number, 1st floor of clinic) HUA antibody panel (03/01/2022 10:08 AM CDT) Analysis Performed At Patho logist Time Signature DINING ROOM SERVER Margaret IgG 1.2 <5.0 U/mL 03/04/2022 [facility] Instrument 10:11 AM CDT CORE/PROT/END Value O DINING ROOM SERVER Antibody Negative Negative 03/04/2022 [facility] IgG 10:11 AM CDT CORE/PROT/END O Herrera HUA Margaret <1.6 <7.0 U/mL 03/04/2022 [facility] IgG Instrument 10:11 AM CDT CORE/PROT/EN D Value O Herrera HUA Negative Negative 03/04/2022 [facility] Antibody IgG 10:11 AM CDT CORE/PROT/END O SSA Margaret IgG <0.5 <7.0 U/mL 03/04/2022 [facility] Instrument 10:11 AM CDT CORE/PROT/END Value O SSA (Ro) Negative Negative 03/04/2022 [facility] Antibody IgG 10:11 AM CDT CORE/PROT/END O SSB Margaret IgG 3.7 <7.0 U/mL 03/04/2022 [facility] Instrument 10:11 AM CDT CORE/PROT/END Value O SSB (La) Negative Negative 03/04/2022 [facility] Antibody IgG 10:11 AM CDT CORE/PROT/END O Specimen Anatomical Collection Method / Collection Time Recei kal Time (Source) Location / Volume Laterality Blood BLOOD SPECIMEN / Venipuncture / 03/01/2022 10:08 03/01 Unknown Unknown AM CDT 10:08 AM CDT Erica Jenkins MD LAB - BLOOD ORDERABLES Performing Organization Address City/State/ZIP Code Phon e Number [facility] CORE/PROT/ENDO [facility] [place] [place] [address] Core/Prot/Endo [address] [facility] [address] Building, Room 3-580 CRP inflammation (03/01/2022 10:08 AM CDT) Analysis Performed At Patho logist Time Signature CRP Inflammation <3.00 <5.00 mg/L 03/01/2022 [facility] R[facility] 6:46 PM CDT Specimen Anatomical Collection Method / Collection Time Recei kal Time (Source) Location / Volume Laterality Blood BLOOD SPECIMEN / Venipuncture / 03/01/2022 10:08 03/01 Unknown Unknown AM CDT 10:08 AM CDT Erica Jenkins MD LAB - BLOOD ORDERABLES Performing Organization Address City/State/ZIP Code Phon e Number [facility] [place] [address] Lab [address] [facility] [address] Building, Room 3[address]580 from Last 3 Months Insurance Payer Benefit Plan / Subscriber ID Effective Phone Address T ype Group Dates MEDICARE MEDICARE [id number] 2019-Prese [phone] ATTN CLAI MS Medicare nt 40 [address] [place] [address] BC[place] BCBS OF [place] [id number] 2019-Prese [phone] [address] [address] Indemnity nt 00 [place] [address] (Home) W [phone] [place], [place] (Work) [phone] Valeri Keenan Personal/Family Self 1955 [phone] (Home) W [phone] [place], [place] (Work) [address] Valeri Keenan Personal/Family Self 1955 [phone] (Home) W [phone] [place] ([place]) [phone] Care Teams Order Puller Relationship Specialty Start Date End Date Vanessa Mills MD PCP - General Internal Medicine 07/01/[address] [place] [phone] Vanessa Mills MD Assigned PCP 01/11/[address] [place] [address] [phone]
--- OUTSIDE RECORDS SUMMARY | 2022-04-16 19:35 | XMS_ITS | Encounter Summary ---
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
--- OUTSIDE RECORDS SUMMARY | 2022-04-16 19:35 | XMS_ITS | Encounter Summary ---
:1955 Author Organization [place] Address [address] [place] [address] Care Team Providers Name Role Phone Vanessa Mills MD Primary Care Provider [phone] Vanessa Mills MD Unavailable Encounter Details Date Type Department Care Team Description 03/01/2022 [facility] Ot er pruritus (Primary Dx); [facility] Intrinsic allergic eczema; [address] [facility] Actinic dermatitis; [place], [place] [address] Melanocytic nevi of trunk; [phone] Other skin blair ges due to chronic exposure to nonionizing radiation; Other melanin h yperpigmentation; Other seborrhei c keratosis; Hemangioma of s kin and subcutaneous tissue; Vitamin D defic iency Social History Tobacco Use Types Packs/Day Years Used Date Never Smoker Smokeless Tobacco: Never Used Alcohol Use Standard Drinks/Week Comments Yes 0 (1 standard drink = 0.6 oz pure alcoho l) 1 glass of wine per week 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 Date Recorded 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 documented as of this encounter Plan of Treatment Not on filedocumented as of this encounter Procedures Procedure Name Priority Date/Time Associated Diagnosis Comme nts SSB LA HUA ANTIBODY Routine 03/01/2022 10:08 Intrinsic allergi c Results for this IGG AM CDT eczema procedure are in Actinic dermatit is the results Melanocytic nevi of section. trunk Other skin changes due to chronic exposure to nonionizing radiation Other melanin hyperpigmentatio n Other seborrheic keratosis Hemangioma of skin and subcutaneous tissue Other pruritus SSA RO HUA ANTIBODY Routine 03/01/2022 10:08 [...] subcutaneous tissue Other pruritus Vitamin D deficiency ERYTHROCYTE Routine 03/01/2022 10:08 Intrinsic allergic Resul [...] of skin and subcutaneous tissue Other pruritus CRP INFLAMMATION Routine 03/01/2022 10:08 Intrinsic allergic R esults for this AM CDT eczema procedure are in Actinic dermatit is the results Melanocytic nevi of section. trunk Other skin changes due to chronic exposure to nonionizing radiation Other melanin hyperpigmentatio n Other seborrheic keratosis Hemangioma of skin and subcutaneous tissue Other pruritus documented in this encounter Results SSA Ro HUA Antibody IgG (03/01/2022 10:08 [...] e Number [facility] CORE/PROT/ENDO [place], [place] [address] Core/Prot/Endo [address] [facility] [address], Room 3-580 SSB La HUA Antibody IgG (03/01/2022 10:08 [...] e Number [facility] CORE/PROT/ENDO [facility] [place], [place] [address] Core/Prot/Endo [address] [facility] [address] Building, Room 3-580 Anti Nuclear Margaret IgG by IFA with Reflex (03/01/2022 10:08 AM CDT) [facility] gist Method Time Signature ELAYNE interpretation Negative [...] e Number UM SPECIALTY CORE/PROT/ENDO UM Specialty [place] [id number] Core/Prot/Endo [address] [facility] [address] [facility], Room 3-580 HUA antibody panel (03/01/2022 10:08 AM CDT) Analysis Performed At Patho logist Time Signature THIRD RAIL INSTALLER Margaret IgG 1.2 <5.0 U/mL 03/04/2022 [facility] Instrument 10:11 AM CDT CORE/PROT/END Value O THIRD RAIL INSTALLER Antibody Negative Negative 03/04/2022 [facility] SPECIAL[facility] IgG [...] e Number [facility] CORE/PROT/ENDO UM Specialty [place], [place] [address] Core/Prot/Endo 500 [facility] [address] Building, Room 3-580 Erythrocyte sedimentation [...] City/State/ZIP Code Phon [place] [address] [facility]-[phone] [place] [address] [facility] Lab (no room number, 1st floor of clinic) CR LABORATORY [place], [place] [phone] [facility] [phone] Lab [address] [facility] Lab (no room number, 1st floor of clinic) Vitamin D Deficiency (03/01/2022 10:08 AM CDT) P athologist Signature Vitamin D, 25 20 - 75 03/04/2022 [facility] SPECIAL[facility] Total ug/L 11:05 AM CDT CORE/PROT/ENDO (25-Hydroxy) Specimen Anatomical Collection Method / Collection Time Recei kal Time (Source) Location / Volume Laterality Blood BLOOD SPECIMEN / Venipuncture / 03/01/2022 10:08 03/01 Unknown Unknown AM CDT 10:08 AM CDT Narrative [facility] CORE/PROT/ENDO - 03/04/2022 11:05 AM CDT Season, race, dietary intake, and treatment affect the concentration of 12-iqhdtze-Kmxtjyb D. Values may decrease during winter months [...] Organization Address City/State/ZIP Code Phon e Number SPECIALTY CORE/PROT/ENDO Specialty [place], [place] [address] Core/Prot/Endo [address] [facility], Room 3-580 CRP inflammation (03/01/2022 10:08 AM [...] LAB - BLOOD ORDERABLES Performing Organization Address City/[facility]/ZIP Code Phon e Number LABORATORY [facility] [place] [address] [facility], Room 3-580 documented in this encounter Visit Diagnoses Diagnosis Other pruritus - Primary Intrinsic allergic eczema Other atopic dermatitis and related cond itions Actinic dermatitis Unspecified dermatitis due to sun Melanocytic nevi of trunk Benign neoplasm of skin of trunk, except scrotum Other skin changes due to chronic exposu re to nonionizing radiation Other melanin hyperpigmentation Other seborrheic keratosis Hemangioma of skin and subcutaneous tiss ue Vitamin D deficiency Unspecified vitamin D deficiency documented in this encounter Additional Health Concerns Assessment Noted Time PHQ-9 Depression Total Score: 0 09/05/2021 1:36 PM 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
--- OUTSIDE RECORDS SUMMARY | 2022-04-16 19:35 | XMS_ITS | Encounter Summary ---
:1955 Author Organization [facility] Address [address] [address] Phone Care Team Providers Name Role Phone Vanessa Mills MD Primary Care Provider Encounter Details Date Type Department Care Team Description 05/16/2021 Travel Social History Tobacco Use Types Packs/Day [...] Diagnoses Not on filedocumented in this encounter Care Teams Dealership General Manager Relationship Specialty Start Date End Date Vanessa Mills MD PCP - General Internal Medicine 05/16/[address] [place] [address] documented as of this encounter
--- OUTSIDE RECORDS SUMMARY | 2022-04-16 19:35 | XMS_ITS | Encounter Summary ---
:1955 Author Organization [place] [facility] Address [address] [place] [address] Care Team Providers Name Role Phone Vanessa Mills MD Primary Care Provider [phone] Vanessa Mills MD Unavailable [phone] Reason for Visit Reason Comments Hypertension Follow up Encounter Details Date Type Department Care Team Description 01/09/2022 Office Visit [facility] Vanessa Mills Hypertension (Primary Dx); Phill Mendez MD History of heat urticaria Building [address] [place] [address] [facility] 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 documented in this encounter Progress Notes Vanessa Mills MD - 01/09/2022 2:20 PM CDT Valeri Keenan is a 66 year old female here for the following issues: Hypertension Jihan has a history of HTN and takes and amlodipine 10 mg tablets daily and was recently started on losartan 25 mg tablets daily . She is coming in today for a BP check. At our last visit on 11/28/21 she was told to resume checking BP at home and record readings. Today, Jihan reports she has not been recording her at-home BP, but states it was 118/80 at her mostrecent transplanter orchid visit. She takes amlodipine in the morning and losartan at night. Denies experiencing any losartan side effects since starting her 25 mg daily dose. Home BP cuff: 134/66 Manual BP: 128/70 Her BP machine is accurate and reliable. BP Readings from Last 3 Encounters: 01/09/22 131/76 11/28/21 (!) 157/81 09/05/21 (!) 143/82 Sun Sensitivity Jihan is still experiencing sun sensitivity symptoms. When she goes out in the sun, her skin becomesred, like a sunburn and stings immediately. Later on, her skin becomes itchy and has a tingling sensation. Symptoms worsen with heat. Jihan has tried UV shirts without luck. Her bright cutter prescribed triamcimalone cream which helps. Denies rash. No raised lesions. Sometimes becomes raised if scratched. Her bright cutter and transplanter orchid recommended fshe consult with rheumatology to ensure this is not a photosensitivity rash induced by lupus. She has significant hx of advanced osteoarthritis. Patient Active Problem List Diagnosis ??? Headache [...] 137 mcg by mouth 30 0 ??? losartan (COZAAR) 25 MG tablet Take 1 tablet (25 mg) by mouth daily 90 tablet 0 ??? meloxicam (MOBIC) 15 MG tablet Take 1 tablet (15 mg) by mouth daily 90 tablet 3 Allergies Allergen Reactions ??? Ancef [Cefazolin Sodium] Rash ??? Meperidine nausea ??? Morphine Nausea and dizziness EXAM BP 128/70 Pulse 59 Temp 97.7 ??F (36.5 ??C) Ht 1.605 m (5' 3.19) Wt 83.9 kg (185 lb 0.6 oz) SpO2 98% No BMI 32.58 kg/m?? Gen: Alert, pleasant, NAD Remainder of exam deferred Assessment: (I10) Hypertension (primary encounter diagnosis) Comment: BP in target range today. Her home machine is accurate. Plan: losartan (COZAAR) 25 MG tablet Prescription refilled. Continue amlodipine and losartan. RTC 6 mos. (Z87.2) History of heat urticaria Comment: hx of burning, slightly itchy rash when exposed to heat/sun Plan: for now recommend cetirizine 10mg daily. Follow up with color specialist as planned Vanessa Mills MD Internal Medicine/Pediatrics I, Aisha Campbell, am serving as a scribe to document services personally performed by Dr. Vanessa Mills, based on data collection and the provider's statements to me. Dr. Mills has reviewed, edited, and approved the above note. documented in this encounter Nursing Notes Mini Casillas MA - 01/09/2022 2:20 PM CDT 66 year old Chief Complaint Patient presents with ??? Hypertension Follow up Blood pressure 131/76, pulse 59, temperature 97.7 ??F (36.5 ??C), height 1.605 m (5' 3.19), weight 83.9 kg (185 lb 0.6 oz), SpO2 98 %, not currently . Body mass index is 32.58 kg/m??. Patient Active Problem List Diagnosis ??? Headache ??? Female stress incontinence ??? Other specified menopausal and postmenopausal disorder ??? iamLUMBAGO ??? Hypothyroidism ??? Obesity ??? Malignant neoplasm of female breast (H) ??? Constipation ? ? HYPERLIPIDEMIA LDL GOAL <130 ??? Osteoarthritis ??? Depression ??? Hypertension ??? Heart murmur Wt Readings from Last 2 Encounters: 01/09/22 83.9 kg (185 lb 0.6 oz) 11/28/21 83.9 kg (185 lb 0.6 oz) BP Readings from Last 3 Encounters: 01/09/22 131/76 11/28/21 (!) 157/81 09/05/21 (!) 143/82 Current Outpatient Medications Medication ??? acetaminophen (TYLENOL) 500 MG tablet ??? amLODIPine (NORVASC) 10 MG tablet ??? FLUoxetine (PROZAC) 20 MG capsule ??? FLUoxetine (PROZAC) 40 MG capsule ??? LEVOTHYROXINE SODIUM 175 MCG OR TABS ??? losartan (COZAAR) 25 MG tablet ??? meloxicam (MOBIC) 15 MG tablet No current facility-administered medications for this visit. Social History Tobacco Use ??? Smoking status: Never Smoker ??? Smokeless tobacco: Never Used Substance Use Topics ??? Alcohol use: Yes Comment: 1 glass of wine per week ??? Drug use: No Health Maintenance Due Topic Date Due ??? ADVANCE CARE PLANNING Never done ??? ZOSTER IMMUNIZATION (1 of 2) Never done ??? TSH W/FREE T4 REFLEX 11/23/2008 ??? COVID-19 Vaccine (3 - Booster for Moderna series) 04/04/2021 ??? FALL RISK ASSESSMENT 07/05/2021 ??? 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
--- OUTSIDE RECORDS SUMMARY | 2022-04-16 19:35 | XMS_ITS | Encounter Summary ---
:1955 Author Organization [place] Address [address] [place] [address] Care Team Providers Name Role Phone Vanessa Mills MD Primary Care Provider [phone] Vanessa Mills MD Unavailable [phone] Reason for Visit Reason Comments Recheck Medication check in on medications, randi k about mobic Encounter Details Date Type Department Care Team Description 02/12/2021 Office Visit [facility] Vanessa Mills Other osteoarthritis involvi ng multiple joints (Primary Dx); Phill Mendez MD Hypertension; Building [address] [place] Major depression, chronic; 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 documented as of this encounter Last Filed Vital Signs Vital Sign Reading Time Taken Comments Blood Pressure 137/70 02/12/2021 2:48 PM CDT Pulse 61 02/12/2021 2:48 PM CDT Temperature 35.9 ??C (96.6 ??F) 02/12/2021 2:48 PM CDT Respiratory Rate 15 02/12/2021 2:48 PM CDT Oxygen Saturation 99% 02/12/2021 2:48 PM CDT Inhaled Oxygen Concentration - - Weight 86.3 kg (190 lb 4 oz) 02/12/2021 2:48 PM CDT Height 161.3 cm (5' 3.5) 02/12/2021 2:48 PM CDT Body Mass Index 33.17 02/12/2021 2:48 PM CDT documented in this encounter Progress Notes Vanessa Mills MD - 02/12/2021 3:00 PM CDT Valeri Keenan is a 65 year old female here for the following issues: Arthritis Jihan has a longstanding history of osteoarthritis, affecting many joints. She has been taking meloxicam 15mg daily for this (prescribed by her orthopedic surgeon) for the past year. This has worked well for her, but her surgeon recently recommended she see her PCP regarding this medication to review her BP and potential side effects. Jihan reports that her arthritis symptoms are well controlled as long as she stays on medication. She is not able to go on long walks any more and notices pain following prolonged use of her hands. She denies stomach upset and takes the meloxicam after eating breakfast. She reports occasional dysphagia, nothing progressive. She denies any heartburn or acid reflux in the past few years. Her most recent creatinine was 0.8, and her GFR was 76.3, urea was 20.0 on 06/2020. Sun sensitivity Jihan does reports increased sun sensitivity in the past couple of years and is wondering if one of her medications could be leading to this. She denies a rash in the sun, but her skin stings and itches after being in the sun or wind. She gets similar sensations following a hot shower. No hives or itching. Depression Jihan has history of depression, treated with fluoxetine 60mg daily. Mood has been good. She wishes to continue medication. PHQ 07/05/2020 02/12/2021 02/12/2021 PHQ-9 Total Score 2 1 1 Q9: Thoughts of better off /self-harm past 2 weeks Not at all Not at all Not at all ARELIS-7 SCORE 06/30/2019 07/05/2020 02/12/2021 Total Score - - - Total Score 0 3 0 History of breast cancer Jihan was diagnosed with breast cancer of the right breast in 2006. ??Mammogram identified calcifications. 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 She underwent bilateral mastectomies (left prophylactic) in 2006 with reconstruction. She is doing well. Patient Active Problem List Diagnosis ??? Headache [...] 0 ??? meloxicam (MOBIC) 15 MG tablet Allergies Allergen Reactions ??? Ancef [Cefazolin Sodium] Rash ??? Meperidine nausea ??? Morphine Nausea and dizziness EXAM BP 137/70 (BP Location: Right arm, Patient Position: Sitting, Cuff Size: Adult Large) Pulse 61 Temp 96.6 ??F (35.9 ??C) (Skin) Resp 15 Ht 1.613 m (5' 3.5) Wt 86.3 kg (190 lb 4 oz) SpO2 99% BMI 33.17 kg/m?? Gen: Alert, pleasant, NAD Hands: arthritic changes but no synovitis or redness. Feet: No edema, pulses full. Assessment: (M15.8) Other osteoarthritis involving multiple joints (primary encounter diagnosis) Comment: Reviewed labs from 06/2020. No significant side effects from medication use. Doing well on Mobic. Plan: meloxicam (MOBIC) 15 MG tablet Continue meloxicam 15 mg every day. (I10) Hypertension Comment: Well controlled, no concerns about use of Meloxicam triggering hypertension. Kidney function normal. Plan: Follow up in June 2021 for BP check and refills. (F32.9) Major depression, chronic Comment: mood is stable on fluoxetine 60mg daily Plan: no change in medication dose (C50.911, Z17.1, C50.912) Malignant neoplasm of both breasts in female, estrogen receptor negative, unspecified site of breast (H) Comment: s/p bilateral mastectomies,left side prophylactic, right side with DCIS (high grade, ERPR negative). Plan: no further mammogram is indicated. Vanessa Mills MD Internal Medicine/Pediatrics documented in this encounter Nursing Notes Doug Orourke, ISAMAR - 02/12/2021 3:00 PM CDT 65 year old Chief Complaint Patient presents with ??? Recheck Medication check in on medications, talk about mobic Blood pressure 137/70, pulse 61, temperature 96.6 ??F (35.9 ??C), temperature source Skin, resp. rate 15, height 1.613 m (5' 3.5), weight 86.3 kg (190 lb 4 oz), SpO2 99 %, not currently .Body mass index is 33.17 kg/m??. Patient Active Problem List Diagnosis ??? Headache ??? Female stress incontinence ??? Other specified menopausal and postmenopausal disorder ??? iamLUMBAGO ??? Hypothyroidism ??? Obesity ??? Malignant neoplasm of female breast (H) ??? Constipation ? ? HYPERLIPIDEMIA LDL GOAL <130 ??? Osteoarthritis ??? Depression ??? Hypertension ??? Heart murmur Wt Readings from Last 2 Encounters: 02/12/21 86.3 kg (190 lb 4 oz) 07/05/20 85.6 kg (188 lb 12 oz) BP Readings from Last 3 Encounters: 02/12/21 137/70 07/05/20 128/74 06/30/19 132/83 Current Outpatient Medications Medication ??? acetaminophen (TYLENOL [...] ??? TSH W/FREE T4 REFLEX 11/23/2008 ??? PHQ-9 01/02/2021 Lab Results Component Value Date PAP NIL 12/05/2010 February 12, 2021 2:51 PM documented in this encounter Plan of Treatment Not on filedocumented as of this encounter Visit Diagnoses Diagnosis Other osteoarthritis involving multiple joints - Primary Hypertension Major depression, chronic Major depressive disorder, single episod e, unspecified Malignant neoplasm of both breasts in fe male, estrogen receptor negative, unspecified site of breast (H) documented in this encounter Additional Health Concerns Assessment Noted Time PHQ-9 Depression Total Score: 1 02/12/2021 3:18 PM CDT documented as of this encounter Care Teams Magnetic Testing Technician Relationship Specialty Start Date End Date Vanessa Mills MD PCP - General Internal Medicine 07/01/[address] [place] [phone] Vanessa Mills MD Assigned PCP 01/11/21 [address] [place], [place] [phone] documented as of this encounter
--- OUTSIDE RECORDS SUMMARY | 2022-04-16 19:35 | XMS_ITS | Encounter Summary ---
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
--- OUTSIDE RECORDS SUMMARY | 2022-04-16 19:35 | XMS_ITS | Encounter Summary ---
:1955 Author Organization [facility] Address [address] [place] [address] Care Team Providers Name Role Phone Vanessa Mills MD Primary Care Provider [phone] Reason for Visit Reason Onset Date Comments Erroneous encounter-disregard 07/05/2020 Encounter Details Date Type Department Care Team Description 07/05/2020 Orders Only [facility] Doug Orourke EMT ERRONEOUS [facility] ENCOUNTER --DISREGARD [facility] ([facility] Dx) [address] [facility] [address] [place], [place] [address] Social History Tobacco Use Types Packs/Day Years Used Date Never Smoker Smokeless Tobacco: Never Used Alcohol Use Standard Drinks/Week Comments Yes 0 (1 standard drink = 0.6 oz pure alcoho l) 1 glass of wine per week 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 Date Recorded Female 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 Please disregard. HAND HELPER documented in this encounter Plan of Treatment Not on filedocumented as of this encounter Visit Diagnoses Diagnosis ERRONEOUS ENCOUNTER--DISREGARD - Primary documented in this encounter Additional Health Concerns Assessment Noted Time PHQ-9 Depression Total Score: 2 07/05/2020 1:31 PM PIER HAND HELPER documented as of this encounter Care Teams Service Writer Advisor Relationship Specialty Start Date End Date Vanessa Mills MD PCP - General Internal Medicine 07/01/[address] [place] [id number] documented as of this encounter
--- OUTSIDE RECORDS SUMMARY | 2022-04-16 19:35 | XMS_ITS | Encounter Summary ---
:1955 Author Organization [place] Address [address] [place] [address] Care Team Providers Name Role Phone Vanessa Mills MD Primary Care Provider [phone] Vanessa Mills MD Unavailable [phone] Reason for Visit Reason Onset Date Comments Refill Request 08/22/2021 amLODIPine (NORVASC) 10 MG tablet Encounter Details Date Type Department Care Team Description 08/22/2021 Refill [facility] Vanessa Mills Refill Request Phill Mendez MD (amLODIPine (NORVASC) [address] [place] A MG tablet) [facility] [place] [address] [place], [place] [address] [phone] Social History Tobacco Use Types Packs/Day Years Used Date Never Smoker Smokeless Tobacco: Never Used Alcohol Use Standard Drinks/Week Comments Yes 0 (1 standard drink = 0.6 oz pure alcoho l) 1 glass of wine per week 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 Date Recorded 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 Kidney function normal. Plan: Follow up in June 2021 for BP check and refills. Prescription approved per Refill Protocol. Massiel Cabrera MS RN-BC 08/23/21 11:29 AM BAG OPERATOR documented in this encounter Plan of Treatment Not on filedocumented as of this encounter Visit Diagnoses Diagnosis Essential hypertension Unspecified essential hypertension documented in this encounter Additional Health Concerns Assessment Noted Time PHQ-9 Depression Total Score: 1 02/12/2021 3:18 PM CDT documented as of this encounter Care Teams Experience Designer Relationship Specialty Start Date End Date Vanessa Mills MD PCP - General Internal Medicine 07/01/[address] [place] [phone] Vanessa Mills MD Assigned PCP 01/11/21 [address] [place], [place] [id number] documented as of this encounter
--- OUTSIDE RECORDS SUMMARY | 2022-04-16 19:35 | XMS_ITS | Encounter Summary ---
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
--- OUTSIDE RECORDS SUMMARY | 2022-04-16 19:36 | XMS_ITS | Encounter Summary ---
:1955 Author Organization [place] Address [address] [place] [address] Care Team Providers Name Role Phone Vanessa Mills MD Primary Care Provider [phone] Reason for Visit Reason Onset Date Comments Refill Request 12/14/2019 Norvasc 10 mg Encounter Details Date Type Department Care Team Description 12/14/2019 Refill [facility] Vanessa Mills Refill Request (Norvasc [facility] MD Vanessa 10 mg) [address], [facility] [id number] [place] [address] [phone] Social History Tobacco Use Types Packs/Day Years Used Date Never Smoker Smokeless Tobacco: Never Used Alcohol Use Standard Drinks/Week Comments Yes 0 (1 standard drink = 0.6 oz pure alcoho l) 1 glass of wine per week 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 Date Recorded 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 Massiel Cabrera RN 12/15/19 9:33 AM documented in this encounter Plan of Treatment Not on filedocumented as of this encounter Visit Diagnoses Diagnosis Essential hypertension Unspecified essential hypertension documented in this encounter Additional Health Concerns Assessment Noted Time PHQ-9 Depression Total Score: 1 06/30/2019 3:03 PM SAW OFFBEARER documented as of this encounter Care Teams Quality Control Chemist Relationship Specialty Start Date End Date Vanessa Mills MD PCP - General Internal Medicine 07/01/[address] [place] [id number] documented as of this encounter
--- OUTSIDE RECORDS SUMMARY | 2022-04-16 19:36 | XMS_ITS | Encounter Summary ---
:1955 Author Organization [place] Address [address] [place] [address]. [place] [address] Care Team Providers Name Role Phone Vanessa Mills MD Primary Care Provider [phone] SerumKhadra MD Unavailable Reason for Visit Diagnostic Imaging Dexa (Routine) - Closed Specialty Diagnoses / Procedures Referred By Contact Refer red To Contact Diagnoses Annual physical exam Vanessa Mills MD Procedures Dexa hip/pelvis/spine* [address] [facility] [place], [place] [address] Referral ID Status Reason Start Date Expiration Date Visits Requ ested Visits Authorized [id number] Closed 01/13/2019 01/13/2020 1 1 Encounter Details Date Type Department Care Team Description 05/12/2019 Ancillary Procedure [facility] Vanessa Mills nnual physical exam Clinic Elizabeth Mendez MD [address] [place] [address] [address] [facility] [address] [place] [phone] Social History Tobacco Use Types Packs/Day Years Used Date Never Smoker Smokeless Tobacco: Never Used Alcohol Use Standard Drinks/Week Comments Yes 0 (1 standard drink = 0.6 oz pure alcoho l) 1 glass of wine per week 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 Date Recorded 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 documented in this encounter Results Dexa hip/pelvis/spine* (05/12/2019 1:04 PM CDT) Anatomical Region Laterality Modality Dexa Bone Mineral Density Specimen (Source) Anatomical Location Collection Method / Collectio n Time Received Time / Laterality Volume Narrative 05/14/2019 3:31 PM CDT BONE DENSITOMETRY [address] [address] 05/12/2019 ?? PATIENT: Valeri Keenan CHART: [id number] : ??1955 AGE: ??64 year old SEX: ??female REFERRING PROVIDER: ??Aleja Mills MD ?? PROCEDURE: ??Bone density scanning was p erformed using DXA technology of the lumbar spine and hip. ??Scanning was performed on a [employer] scanner. ??Reporting is completed in the form of a T-score. ??The T-score represents the standard deviation from p eak bone mass based on a young healthy adult. ?? REFERENCE T-SCORES: ?Normal ?-1.0 and greater ?Osteopenia ? Between -1. 0 and -2.5 ?Osteoporosis ? -2.5 and less ? RISK FACTORS: ??Post-menopausal CURRENT TREATMENT: ??None listed ?? FINDINGS: ? Lumbar Spine (L1-L4) ?T-score: ??-0.3, degenerative changes present ? Left Femoral Neck ?T-score: ??-1.5 ? Forearm (radius 33%) ?T-score: ??0.9 The right femur is not acceptable for ev aluation due to previous arthroplasty. ?Lumbar (L1-L4) BMD: 1.153 ?Left Total Hip BMD: 0.976 ?? Forearm (radius 33%) BMD: 0.953 IMPRESSION Osteopenia., Degenerative changes of the lumbar spine which may falsely elevate results. Patient had a study performed previously , however the scans are not available to compare to the current stud y. Recommendations include ensuring adequat e Calcium and Vitamin D. The current NOF Guidelines recommend charly atment for patients with prior hip or vertebral fracture, T-score -2.5 or b elow, or 10 year risk of any major osteoporotic fracture >20% or [address] of hip fracture >3%, as calculated using the FRAX calculator (ww w.shef.ac.uk/FRAX or you can google FRAX). ?? This patient's risks based on available information, with the use of FRAX, are 8.6 % for major osteoporotic fractur e and 0.9 % for hip fracture. Based on these guidelines, treatment (in addition to calcium and vitamin D) is not recommended for this patient, after ruling out other causes of osteoporosis. This is meant as an aid to clinical deci patty making; one must still use clinical judgement. Follow up can be considered in 5 years. Joellen Hendricks M.D. Electronically signed ?? Vanessa Mills MD IMTashia DEXA ORDERABLES documented in this encounter Visit Diagnoses Diagnosis Annual physical exam Routine general medical examination at a health care facility documented in this encounter Additional Health Concerns Assessment Noted Time PHQ-9 Depression Total Score: 1 01/27/2019 9:09 AM CDT documented as of this encounter Care Teams Accounting Consultant Relationship Specialty Start Date End Date Vanessa Mills MD PCP - General Internal Medicine 07/01/[address] [place] [id number] Khadra Thakur MD Assigned PCP 09/30/16 07/10/[address] [phone] documented as of this encounter
--- OUTSIDE RECORDS SUMMARY | 2022-04-16 19:36 | XMS_ITS | Encounter Summary ---
:1955 Author Organization [place] Address [address] [place] [address] Care Team Providers Name Role Phone Vanessa Mills MD Primary Care Provider [phone] Serum, Khadra Radford MD Unavailable [phone] Serum, Khadra Radford MD Unavailable Reason for Visit Reason Comments RECHECK Ear Fullness Encounter Details Date Type Department Care Team Description 08/15/2017 Office Visit [facility] Vanessa Mills Hypertension (Primary Dx); Phill Mendez MD Ear fullness, left Building [address] [place] [address] [address] 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 documented as of this encounter Last Filed Vital Signs Vital Sign Reading Time Taken Comments Blood Pressure 164/93 08/15/2017 4:34 PM WINDOW/DISTRIBUTION CLERK Pulse 98 08/15/2017 4:30 PM WINDOW/DISTRIBUTION CLERK Temperature 36.7 ??C (98 ??F) 08/15/2017 4:30 PM WINDOW/DISTRIBUTION CLERK Respiratory Rate - - Oxygen Saturation 98% 08/15/2017 4:30 PM WINDOW/DISTRIBUTION CLERK Inhaled Oxygen Concentration - - Weight 85.7 kg (189 lb) 08/15/2017 4:30 PM WINDOW/DISTRIBUTION CLERK Height - - Body Mass Index 32.79 06/04/2017 3:17 PM CDT documented in this encounter Patient Instructions Patient InstructionsVanessa Mills MD - 08/15/2017 4:40 PM WINDOW/DISTRIBUTION CLERK Amlodipine 5mg current Increase dose to 10mg dose Monitor for foot swelling Consitipation, high fiber diet Stay on losartan 50mg daily Send me my chart message with daily readings Consider adding HCTZ to the losartan if we are not seeing improvement 140/90 goal OW/DISTRIBUTION CLERK documented in this encounter Progress Notes Vanessa Mills MD - 08/15/2017 4:40 PM CST Valeri Keenan is a 62 year old female here for the following issues: Ear fullness Valeri is a 62-year-old woman who is here for evaluation of left-sided ear fullness for the past 2 weeks. She felt it may be due to cerumen impaction and tried using Debrox drops. She is also using Dayquil and Nyquil. No fevers, sore throat or cough. HTN She is here for BP check she has a home BP monitor and numbers have been running 140-150 mmHg. She takes losartan 50mg dose in the morning plus amlodipine 5mg daily. Nonsmoker, no hx of ASCVD. Right groin pain She reports right groin dating almost a year. 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 At one point her pain was radiating down to her right foot, but after doing exercises, she is no longer having radicular symptoms. She now notes pain that concentrates in her right groin with going up stairs. We discussed referral to orthopedic surgeon. She will consider this. Patient Active Problem List Diagnosis ??? Headache ??? Female stress incontinence ??? Other specified menopausal and postmenopausal disorder ??? iamLUMBAGO ??? Hypothyroidism ??? Obesity ??? Malignant neoplasm of female breast (H) ??? Constipation ? ? HYPERLIPIDEMIA LDL GOAL <130 ??? Osteoarthritis ??? Depression ??? Hypertension ??? Heart murmur Current Outpatient Prescriptions Medication Sig Dispense Refill ??? amLODIPine (NORVASC) 5 MG tablet Take 1 tablet (5 mg) by mouth daily 30 tablet 1 ??? FLUoxetine (PROZAC) 40 MG capsule Take one daily with 20mg capsule 90 capsule 3 ??? FLUoxetine HCl, PMDD, 20 MG CAPS Take one with 40mg capsule daily 90 capsule 3 ??? losartan (COZAAR) 50 MG tablet Take 1 tablet (50 mg) by mouth daily 90 tablet 3 ??? piroxicam (FELDENE) 20 MG capsule Take 1 capsule (20 mg) by mouth daily 90 capsule 3 ??? predniSONE (DELTASONE) 20 MG tablet Take 2 tablets on day one then one daily x 4 days 6 tablet 1 ??? LANsoprazole (PREVACID SOLUTAB) 15 MG ODT tab Take one daily 30 tablet 3 ??? fluticasone (FLONASE) 50 MCG/ACT nasal spray [place] 2 sprays into both nostrils daily 1 Bottle 11 ??? albuterol (PROAIR HFA, PROVENTIL HFA, VENTOLIN HFA) 108 (90 BASE) MCG/ACT inhaler Inhale 2 puffsinto the lungs every 4 hours as needed for shortness of breath / dyspnea or wheezing 1 Inhaler 3 ??? Turmeric Curcumin 500 MG CAPS Take 500 mg by mouth daily 60 capsule 0 ??? acetaminophen (TYLENOL EX ST ARTHRITIS PAIN) 500 MG tablet Take 2 tablets by mouth daily ??? LEVOTHYROXINE SODIUM 175 MCG OR TABS 1 TABLET DAILY 30 0 ??? VITAMIN D 1000 UNIT OR TABS 1 TABLET DAILY 30 0 ??? CALCIUM 600 + D 600-200 MG-UNIT OR TABS 1 tablet daily 3 MONTHS 1 YEAR ??? MULTI-VITAMIN OR TABS 1 tablet daily 0 ??? VITAMIN C 500 MG OR TABS 1 tablet po qd Allergies Allergen Reactions ??? Ancef [Cefazolin Sodium] Rash ??? Meperidine nausea ??? Morphine Nausea and dizziness EXAM BP (!) 164/93 (BP Location: Right arm, Patient Position: Sitting, Cuff Size: Adult Large) Pulse 98 Temp 98 ??F (36.7 ??C) (Oral) Wt 189 lb (85.7 kg) SpO2 98% BMI 32.79 kg/m2 Repeat BP by is 166/102. Gen: Alert, pleasant, NAD HEENT: LEFT Ear canal with only slight amount of cerumen present. TM completely visualized. Right ear canal with central cerumen impaction COR: S1,S2, no murmur Lungs: CTA bilaterally, no rhonchi, wheezes or rales Ext: no peripheral edema, pulses full Assessment: (I10) Hypertension (primary encounter diagnosis) Comment: blood pressure is elevated today BP Readings from Last 3 Encounters: 08/15/17 (!) 164/93 06/04/17 (!) 166/95 08/08/16 133/78 Plan: .Increase amlodipine from 5mg daily to 10mg daily. Continue losartan 50mg daily, consider adding HCTZ if needed. She will return in 4-6 wks for recheck. (H93.8X2) Ear fullness, left Comment: no cerumen impaction, TMs look normal Plan: no intervention needed. Reassurance given. Vanessa Mills MD Internal Medicine/Pediatrics OW/DISTRIBUTION CLERK documented in this encounter Nursing Notes Claudia Manzanares LPN - 08/15/2017 4:40 PM CST 62 year old Chief Complaint Patient presents with ??? RECHECK ??? Ear Fullness Blood pressure 173/82, pulse 98, temperature 98 ??F (36.7 ??C), temperature source Oral, weight 189 lb (85.7 kg), SpO2 98 %. Body mass index is 32.79 kg/(m^2). Patient Active Problem List Diagnosis ??? Headache ??? Female stress incontinence ??? Other specified menopausal and postmenopausal disorder ??? iamLUMBAGO ??? Hypothyroidism ??? Obesity ??? Malignant neoplasm of female breast (H) ??? Constipation ? ? HYPERLIPIDEMIA LDL GOAL <130 ??? Osteoarthritis ??? Depression ??? Hypertension ??? Heart murmur Wt Readings from Last 2 Encounters: 08/15/17 189 lb (85.7 kg) 06/04/17 189 lb 8 oz (86 kg) BP Readings from Last 3 Encounters: 08/15/17 173/82 06/04/17 (!) 166/95 08/08/16 133/78 Current Outpatient Prescriptions Medication ??? amLODIPine (NORVASC) 5 MG tablet ??? FLUoxetine (PROZAC) 40 MG capsule ??? FLUoxetine HCl, PMDD, 20 MG CAPS ??? losartan (COZAAR) 50 MG tablet ??? piroxicam (FELDENE) 20 MG capsule ??? predniSONE (DELTASONE) 20 MG tablet ??? LANsoprazole (PREVACID SOLUTAB) 15 MG ODT tab ??? fluticasone (FLONASE) 50 MCG/ACT nasal spray ??? albuterol (PROAIR HFA, PROVENTIL HFA, VENTOLIN HFA) 108 (90 BASE) MCG/ACT inhaler ??? Turmeric Curcumin 500 MG CAPS ??? acetaminophen (TYLENOL EX ST ARTHRITIS PAIN) 500 MG tablet ??? LEVOTHYROXINE SODIUM 175 MCG OR TABS ??? VITAMIN D 1000 UNIT OR TABS ??? CALCIUM 600 + D 600-200 MG-UNIT OR TABS ??? MULTI-VITAMIN OR TABS ??? VITAMIN C 500 MG OR TABS No current facility-administered medications for this visit. Social History Substance Use Topics ??? Smoking status: Never Smoker ??? Smokeless tobacco: Never Used ??? Alcohol use Yes Comment: 1 glass of wine per week Health Maintenance Due Topic Date Due ??? DEPRESSION ACTION PLAN Q1 YR 1972 ??? TSH Q1 YEAR 11/23/2008 ??? ADVANCE DIRECTIVE PLANNING Q5 YRS 2009 ??? INFLUENZA VACCINE (SYSTEM ASSIGNED) 04/18/2017 Lab Results Component Value Date PAP NIL 12/05/2010 August 15, 2017 4:34 PM OW/DISTRIBUTION CLERK documented in this encounter Plan of Treatment Not on filedocumented as of this encounter Visit Diagnoses Diagnosis Hypertension - Primary Ear fullness, left documented in this encounter Additional Health Concerns Assessment Noted Time PHQ-9 Depression Total Score: 1 06/11/2017 3:05 PM CDT documented as of this encounter Care Teams Geriatrics Physician Relationship Specialty Start Date End Date Vanessa Mills MD PCP - General Internal Medicine 07/01/13 [address] [place] [address] Khadra Thakur MD PCP - Assigned PCP 09/30/16 10/20/[address] [id number] SerumKhadra MD Assigned PCP 09/30/16 07/10/[address] [phone] documented as of this encounter
--- OUTSIDE RECORDS SUMMARY | 2022-04-16 19:36 | XMS_ITS | Encounter Summary ---
:1955 Author Organization [place] Address [address] [place] [address] Care Team Providers Name Role Phone Vanessa Mills MD Primary Care Provider [phone] Serum, Khadra Radford MD Unavailable [phone] Serum, Khadra Radford MD Unavailable [phone] Reason for Visit Reason Onset Date Comments Refill Request 06/26/2018 celebrex Encounter Details Date Type Department Care Team Description 06/26/2018 Refill [facility] Vanessa Mills Refill Request Phill Mendez MD (celebrex) [address] [address] [place], [place] [address] [phone] Social History Tobacco Use Types Packs/Day Years Used Date Never Smoker Smokeless Tobacco: Never Used Alcohol Use Standard Drinks/Week Comments Yes 0 (1 standard drink = 0.6 oz pure alcoho l) 1 glass of wine per week 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 Date Recorded Female 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 Coco Feldman RN Accounting Policy Consultant [facility] ED MATERIALS WORKER documented in this encounter Plan of Treatment Not on filedocumented as of this encounter Visit Diagnoses Diagnosis Primary osteoarthritis of hip, unspecifi ed laterality - Primary documented in this encounter Additional Health Concerns Assessment Noted Time PHQ-9 Depression Total Score: 2 04/17/2018 7:18 AM CDT documented as of this encounter Care Teams Hair Preparer Relationship Specialty Start Date End Date Vanessa Mills MD PCP - General Internal Medicine 07/01/[address] [place] [address] Khadra Thakur MD PCP - Assigned PCP 09/30/16 10/20/[address] [phone] Khadra Thakur MD Assigned PCP 09/30/16 07/10/[address] [phone] documented as of this encounter
--- OUTSIDE RECORDS SUMMARY | 2022-04-16 19:36 | XMS_ITS | Encounter Summary ---
:1955 Author Organization [facility] Address [address] [place] [address] Care Team Providers Name Role Phone Vanessa Mills MD Primary Care Provider [phone] Serum, Khadra Radford MD Unavailable [phone] Serum, Khadra Radford MD Unavailable [phone] Encounter Details Date Type Department Care Team Description 03/09/2018 Hospital Encounter [facility] MD Edwin maintenance [address], [place] [facility] [address] [phone] [address] [place] [address] Social History Tobacco Use Types Packs/Day Years Used Date Never Smoker Smokeless Tobacco: Never Used Alcohol Use Standard Drinks/Week Comments Yes 0 (1 standard drink = 0.6 oz pure alcoho l) 1 glass of wine per week 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 Date 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 Medications at Time of Discharge Medication Sig Dispensed Refills Start Date End Date acetaminophen (TYLENOL) Take 2 tablets by 0 500 MG tablet mouth daily LEVOTHYROXINE SODIUM 175 Take 137 mcg by 30 0 2008 MCG OR TABS mouth albuterol (PROAIR HFA, Inhale 2 puffs into 1 Inhaler 3 06/1904/15/2018 PROVENTIL HFA, VENTOLIN the lungs every 4 HFA) 108 (90 BASE) hours as needed for MCG/ACT shortness of breath inhalerIndications: / dyspnea or Acute bronchitis, wheezing unspecified organism amLODIPine (NORVASC) 10 Take 1 daily 90 tablet 3 11/26/2017 11/18/2018 MG tabletIndications: Essential hypertension CALCIUM 600 + D 600-200 1 tablet daily 3 MONTHS 1 09/24/19 08 01/13/2019 MG-UNIT OR TABS FLUoxetine (PROZAC) 40 Take one daily with 90 capsule 3 05/1806/09/2018 MG capsuleIndications: 20mg capsule Major depression, chronic FLUoxetine HCl, PMDD, 20 Take one with 40mg 90 capsule 3 06/09/2018 MG CAPSIndications: capsule daily Major depression, chronic fluticasone (FLONASE) 50 [place] 2 sprays into 1 Bottle 11 04/15/2018 MCG/ACT nasal both nostrils daily sprayIndications: Post-nasal drip LANsoprazole (PREVACID Take one daily 30 tablet 3 6 04/15/2018 SOLUTAB) 15 MG ODT tabIndications: Cough losartan-hydrochlorothia Take 1 tablet by 90 tablet 1 11/2604/15/2018 zide (HYZAAR) 100-25 MG mouth daily per tabletIndications: Essential hypertension MULTI-VITAMIN OR TABS 1 tablet daily 0 10/22/2005 01/13/2019 piroxicam (FELDENE) 20 Take 1 capsule (20 90 capsule 3 06/0406/09/2018 MG capsuleIndications: mg) by mouth daily Other type of osteoarthritis, unspecified site predniSONE (DELTASONE) Take 2 tablets on 6 tablet 1 201504/15/2018 20 MG tabletIndications: day one then one Cough daily x 4 days Turmeric Curcumin 500 MG Take 500 mg by mouth 60 capsule 0 1 08/27/2014 06/30/2019 CAPS daily VITAMIN C 500 MG OR TABS 1 tablet po qd 0 01/13/2019 VITAMIN D 1000 UNIT OR 1 TABLET DAILY 30 0 8 01/13/2019 TABS documented as of this encounter Plan of Treatment Not on filedocumented as of this encounter Procedures Procedure Name Priority Date/Time Associated Diagnosis Comme nts HEMOGLOBIN Routine 03/09/2018 2:58 PM Healthcare maintenance Results for this CDT procedure are i n the results section. documented in this encounter Results Hemoglobin (03/09/2018 2:58 PM CDT) P athologist Signature Hemoglobin 13.7 11.7 - 15.7 03/09/2018 [facility] g/dL 3:22 PM CDT HOSPITAL Specimen Anatomical Collection Method Collection Time Receive d Time (Source) Location / / Volume Laterality Blood specimen 03/09/2018 2:58 PM 018 2:59 (specimen) CDT PM CDT Arvin Reynolds MD LAB - BLOOD ORDERABLES Performing Organization Address City/State/ZIP Code Phon e Number [facility] [address], [place] [address] [facility] [address] [place], [place] [address] [facility] [phone] documented in this encounter Visit Diagnoses Diagnosis Healthcare maintenance Routine general medical examination at a health care facility documented in this encounter Additional Health Concerns Assessment Noted Time PHQ-9 Depression Total Score: 1 12/10/2017 7:45 AM CDT documented as of this encounter Care Teams Ski Top Trimmer Relationship Specialty Start Date End Date Vanessa Mills MD PCP - General Internal Medicine 07/01/[address] [place] [address] Khadra Thakur MD PCP - Assigned PCP 09/30/16 10/20/[address] [address] Khadra Thakur MD Assigned PCP 09/30/16 07/10/[address] [address] documented as of this encounter
--- OUTSIDE RECORDS SUMMARY | 2022-04-16 19:36 | XMS_ITS | Encounter Summary ---
:1955 Author Organization [facility] Address [address] [place] [address] Care Team Providers Name Role Phone Vanessa Mills MD Primary Care Provider [phone] Serum, Khadra Radford MD Unavailable [phone] Serum, Khadra Radford MD Unavailable [phone] Reason for Visit Reason Onset Date Comments Erroneous encounter-disregard 06/16/2017 Encounter Details Date Type Department Care Team Description 06/16/2017 Refill [facility] Vanessa Mills Erroneous [employer] MD Vanessa encounter-disregard [address] [address] [place], [place] [address] [phone] Social History Tobacco Use Types Packs/Day Years Used Date Never Smoker Smokeless Tobacco: Never Used Alcohol Use Standard Drinks/Week Comments Yes 0 (1 standard drink = 0.6 oz pure alcoho l) 1 glass of wine per week 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 Plan of Treatment Not on filedocumented as of this encounter Visit Diagnoses Not on filedocumented in this encounter Additional Health Concerns Assessment Noted Time PHQ-9 Depression Total Score: 1 06/11/2017 3:05 PM CDT documented as of this encounter Care Teams Silk Finisher Relationship Specialty Start Date End Date Vanessa Mills MD PCP - General Internal Medicine 07/01/13 [address] [facility] [place] [address] Khadra Thakur MD PCP - Assigned PCP 09/30/16 10/20/18 [facility] [address] [place] [address] Khadra Thakur MD Assigned PCP 09/30/16 07/10/19 [facility] [address] [place] [address] documented as of this encounter
--- OUTSIDE RECORDS SUMMARY | 2022-04-16 19:36 | XMS_ITS | Encounter Summary ---
:1955 Author Organization [facility] Address [address] [place] [address] Care Team Providers Name Role Phone Vanessa Mills MD Primary Care Provider [phone] Serum, Khadra Radford MD Unavailable [phone] Serum, Khadra Radford MD Unavailable [phone] Reason for Visit Reason Onset Date Comments Refill Request 08/22/2017 amlodipine Encounter Details Date Type Department Care Team Description 08/22/2017 Refill [facility] Vanessa Mills Refill Request Phill Mendez MD (amlodipine) [address] [address] [place], [place] [address] [phone] Social History Tobacco Use Types Packs/Day Years Used Date Never Smoker Smokeless Tobacco: Never Used Alcohol Use Standard Drinks/Week Comments Yes 0 (1 standard drink = 0.6 oz pure alcoho l) 1 glass of wine per week 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 Date 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 Plan of Treatment Not on filedocumented as of this encounter Visit Diagnoses Diagnosis Hypertension documented in this encounter Additional Health Concerns Assessment Noted Time PHQ-9 Depression Total Score: 1 06/11/2017 3:05 PM CDT documented as of this encounter Care Teams Hospice Physician Relationship Specialty Start Date End Date Vanessa Mills MD PCP - General Internal Medicine 07/01/[address] [place] [address] SerumKhadra MD PCP - Assigned PCP 09/30/16 10/20/18 [facility] [address] [place] [address] SerumKhadra MD Assigned PCP 09/30/16 07/10/[address] [address] documented as of this encounter
--- OUTSIDE RECORDS SUMMARY | 2022-04-16 19:36 | XMS_ITS | Encounter Summary ---
:1955 Author Organization [place] Address [address] [place] [address] Care Team Providers Name Role Phone Vanessa Mills MD Primary Care Provider [phone] Serum, Khadra Radford MD Unavailable [phone] Reason for Visit Reason Comments Pre-Op Exam Left shoulder replacement DO S 07/19/[address] [facility] observation Encounter Details Date Type Department Care Team Description 06/30/2019 Office Visit [facility] Vanessa Mills Pre-op exam (Primary Dx); Phill Mendez MD Primary osteoarthritis of hip, unspecifi ed laterality; Building [address] [place] Depression; 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 documented as of this encounter Last Filed Vital Signs Vital Sign Reading Time Taken Comments Blood Pressure 132/83 06/30/2019 3:12 PM SOFTWARE DEPLOYMENT ENGINEER Pulse 64 06/30/2019 2:05 PM SOFTWARE DEPLOYMENT ENGINEER Temperature 36.6 ??C (97.9 ??F) 06/30/2019 2:05 PM SOFTWARE DEPLOYMENT ENGINEER Respiratory Rate 16 06/30/2019 2:05 PM SOFTWARE DEPLOYMENT ENGINEER Oxygen Saturation 99% 06/30/2019 2:05 PM SOFTWARE DEPLOYMENT ENGINEER Inhaled Oxygen Concentration - - Weight 83.2 kg (183 lb 8 oz) 06/30/2019 2:05 PM SOFTWARE DEPLOYMENT ENGINEER Height 160 cm (5' 2.99) 06/30/2019 2:05 PM SOFTWARE DEPLOYMENT ENGINEER Body Mass Index 32.51 06/30/2019 2:05 PM SOFTWARE DEPLOYMENT ENGINEER documented in this encounter Progress Notes Vanessa Mills MD - 06/30/2019 2:20 PM CST [address], [address] [place] [address] PRE-OP EVALUATION: Today's date: 06/30/2019 Valeri Keenan (: 1955) presents for pre-operative evaluation assessment as requested by Dr. Angelica Hoang. She requires evaluation and anesthesia risk assessment prior to undergoing surgery/procedure for treatment of degenerative arthritis of the LEFT shoulder. Proposed procedure: LEFT Total Shoulder Arthroplasty. Date of Surgery/ Procedure: 07/19/2019 Time of Surgery/ Procedure: 12:00 pm Hospital/Surgical Facility: [facility] Overnight Observation. Dr. Angelica Hoang Fax number for surgical facility: [phone] Primary Physician: Dr. Mills Type of Anesthesia Anticipated: General History of anesthesia complications: YES: Post op nausea and vomiting History of abnormal bleeding: NONE History of blood transfusions: NO Patient has a Health Care Directive or Living Will: NO PREOP QUESTIONNAIRE 1- NO - Do you ever have any pain or discomfort in your chest? 2- NO - Have you ever had a severe pain across the front of your chest lasting for half an hour or more? 3- NO - Do you have swelling in your feet or ankles at times? 4- NO - Are you troubled by shortness of breath when: walking on the level/ up a slight hill/ at night? 5- NO - Does your chest ever sound wheezy or whistling? 6- NO - Do you currently have a cold, bronchitis or other respiratory infection? 7- NO - Have you had a cold, bronchitis or other respiratory infection within the last 2 weeks? 8- NO - Do you usually have a cough? 9- NO - Do you sometimes get pains in the calves of your legs when you walk? 10-NO - Do you or anyone in your family have previous history of blood clots? 11-NO - Do you or does anyone in your family have serious bleeding problem such as prolonged bleeding following surgeries or cuts? 12-NO - Have you ever had problems with anemia or been told to take iron pills? 13-NO - Have you had any abnormal blood loss such as black, tarry or bloody stools, or abnormal vaginal bleeding? 14-Yes - Have you or any of your relatives ever had problems with anesthesia? 15-NO - Do you snore or stop breathing at night? 16-Yes - Do you have any prosthetic heart valves or joints? Right hip replacement 17-NO - Is there any chance that you may be ? HPI: Preoperative assessment Valeri is a 64 yo woman with hx of osteoarthritis. She has had a one year history of LEFT shoulder pain. She was referred to orthopedics for treatment. She was given a cortisone rejection, which provided mild relief, but caused headaches. Due to this, she was told surgical intervention was recommendedwith a LEFT total shoulder arthroplasty. She wishes to proceed. Jihan is a healthy individual, without history of lung dx or DM. Nonsmoker. No hx of sleep apnea. Nopersonal or family history of bleeding or clotting disorders. She has not had any previous complications with surgeries however, she has gets postop nausea and vomiting. Hypertension Jihan has a history of hypertension, that has recently been managed with amlodipine 10 mg daily. Shedenies any chest pain. BP Readings from Last 3 Encounters: 06/30/19 132/83 01/13/19 136/80 11/18/18 126/80 Hyperlipidemia Jihan has a history of hyperlipidemia. She is not currently on a statin. Her last lipid profile on 01/13/2019 was all within range. Will recheck today. Hypothyroidism Jihan has a history of hypothyroidism, and has been taking levothyroxine 175 mcg daily. 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 TSH Date Value Ref Range Status 11/24/2007 4.24 0.4 - 5.0 mU/L Final Patient Active Problem List Diagnosis Date Noted ??? Heart murmur 06/05/2017 Priority: Medium ??? Osteoarthritis 03/25/2016 Priority: Medium Hands, multiple joints, followed by Rheum ??? Depression 03/25/2016 Priority: Medium ??? Hypertension 03/25/2016 Priority: Medium ? ? HYPERLIPIDEMIA LDL GOAL <130 09/27/2009 Priority: Medium ??? Constipation 02/15/2009 Priority: Medium ??? Malignant neoplasm of female breast (H) Priority: Medium Right side, mastectomy Problem list name updated by automated process. [...] DEXA normal ??? Osteoarthritis 12/05/10 followed by bead wrapper; Affects hands, feet, multiple joints ??? Osteoarthrosis, [...] TUNNEL RELEASE RT/LT ??? COLONOSCOPY 04/16/2013 due 2023 ??? FOOT SURGERY RIGHT 2ND TOE SURGERY ??? FOOT SURGERY 2014 fusion of right foot ??? HC MASTECTOMY, SIMPLE, COMPLETE 03/2007 right with carcinoma, left prophylactic ??? HC THYROIDECTOMY 07/2007 total thyroidectomy Current Outpatient Medications Medication Sig Dispense Refill ??? acetaminophen (TYLENOL EX ST ARTHRITIS PAIN) 500 MG tablet Take 2 tablets by mouth daily ??? amLODIPine (NORVASC) 10 MG tablet Take 1 daily 90 tablet 3 ??? celecoxib (CELEBREX) 200 MG capsule Take 1 capsule (200 mg) by mouth daily 90 capsule 3 ??? FLUoxetine (PROZAC) 40 MG capsule Take one daily with 20mg capsule 90 capsule 3 ??? FLUoxetine HCl, PMDD, 20 MG CAPS Take one daily with 40mg capsule daily 90 capsule 3 ??? LEVOTHYROXINE SODIUM 175 MCG OR TABS 1 TABLET DAILY 30 0 OTC products: None, except as noted above Allergies Allergen Reactions ??? Ancef [Cefazolin Sodium] Rash ??? Meperidine nausea ??? Morphine Nausea and dizziness Latex Allergy: NO Social History Tobacco Use ??? Smoking status: Never Smoker ??? Smokeless tobacco: Never Used Substance Use Topics ??? Alcohol use: Yes Comment: 1 glass of wine per week History Drug Use No REVIEW OF SYSTEMS: Constitutional, HEENT, cardiovascular, pulmonary, GI, , musculoskeletal, neuro, skin, endocrine and psych systems are negative, except as otherwise noted. EXAM: BP (!) 144/84 (BP Location: Left arm, Patient Position: Sitting, Cuff Size: Adult Large) Pulse 64 Temp 97.9 ??F (36.6 ??C) (Oral) Resp 16 Ht 1.6 m (5' 2.99) Wt 83.2 kg (183 lb 8 oz) SpO2 99% BMI 32.51 kg/m?? GENERAL APPEARANCE: healthy, alert and no distress EYES: EOMI, PERRL HENT: ear canals and TM's normal and nose and mouth without ulcers or lesions NECK: no adenopathy, no asymmetry, masses, or scars and thyroid normal to palpation RESP: lungs clear to auscultation - no rales, rhonchi or wheezes CV: regular rates and rhythm, normal S1 S2, 2/6 Murmur ABDOMEN: soft, nontender, no HSM or masses and bowel sounds normal MS: extremities normal- no gross deformities noted, no evidence of inflammation in joints, FROM in all extremities. SKIN: no suspicious lesions or rashes NEURO: Normal strength and tone, sensory exam grossly normal, mentation intact and speech normal PSYCH: mentation appears normal. and affect normal/bright EXT: trace edema, pulses full DIAGNOSTICS: Preop Testing EKG (06/30/19): Sinus bradycardia, rate 58. Normal axis, normal intervals, no acute ST/T changes c/wischemia, no LVH by voltage criteria, unchanged from previous tracings Results for orders placed or performed in visit on 06/30/19 CBC with Plt ([facility]) Status: None Result Value Ref Range WBC 5.6 4.0 - 11.0 K/uL RBC 4.49 3.80 - 5.20 M/uL Hemoglobin 12.9 11.7 - 15.7 g/dL Hematocrit 40.0 35.0 - 47.0 % MCV 89.1 78.0 - 100.0 fL MCH 28.7 26.5 - 35.0 pg MCHC 32.3 32.0 - 36.0 g/dL Platelets 293.0 150.0 - 450.0 K/uL RDW 14.3 % Basic Metabolic Panel ([place]) Status: None Result Value Ref Range Glucose 91.0 60.0 - 99.0 mg/dL Urea Nitrogen 15.0 7.0 - 30.0 mg/dL Calcium 9.4 8.5 - 10.4 mg/dL Creatinine 0.6 0.6 - 1.3 mg/dL eGFR Calculated (Non Black Reference) 106.6 >60.0 eGFR Calculated (Black Reference) 129.0 >60.0 Sodium 141.0 137.3 - 146.3 mmol/L Potassium 3.9 3.4 - 5.3 mmol/L Chloride 103.0 94.0 - 109.0 mmol/L Carbon Dioxide 28.0 20.0 - 32.0 mmol/L INR Status: None Result Value Ref Range INR 0.97 0.86 - 1.14 IMPRESSION: (Z01.818) Pre-op exam (primary encounter diagnosis) Comment: elective left total shoulder arthroplasty Plan: EKG 12-lead complete w/read - Clinics, CBC with Plt ([facility]), Basic Metabolic Panel ([place]), INR ([place]), Urine Culture Aerobic Bacterial No contraindication to surgery, Pt is instructed to hold any vitamins, herbs, supplements and NSAIDs 10 days prior to surgery. She may take any prescription medications with a small sip of water on the morning of the procedure. (M16.10) Primary osteoarthritis of hip, unspecified laterality Comment: currently on Celebrex Plan: celecoxib (CELEBREX) 200 MG capsule Check with orthopedic doctor about when to stop the antiinflammatory med, suspect 10 days (F32.9) Depression Comment: doing well with fluoxetine, 60mg dose Plan: FLUoxetine (PROZAC) 40 MG capsule, FLUoxetine HCl, PMDD, 20 MG CAPS Refilled medication (R11.2, Z98.890) Post-operative nausea and vomiting Comment: history of post op N/V Plan: recommend use of Zofran, scopolamine patch or other in postoperative period. The proposed surgical procedure is considered INTERMEDIATE risk. For above listed surgery and anesthesia: Patient is at MODERATE risk for surgery/procedure and perioperative/procedure complications. RECOMMENDATIONS: --Approval given to proceed with proposed procedure, without further diagnostic evaluation. Signed Electronically by: Vanessa Mills MD Copy of this evaluation report is provided to requesting physician. Preop Guidelines WARE DEPLOYMENT ENGINEER documented in this encounter Nursing Notes Marli Pereira - 06/30/2019 2:20 PM CST 64 year old Chief Complaint Patient presents with ??? Pre-Op Exam Left shoulder replacement DOS 07/19/2019 Dr. Susan Collins [facility] overnight observation Blood pressure (!) 144/84, pulse 64, temperature 97.9 ??F (36.6 ??C), temperature source Oral, resp.rate 16, height 1.6 m (5' 2.99), weight 83.2 kg (183 lb 8 oz), SpO2 99 %, not currently . Body mass index is 32.51 kg/m??. Patient Active Problem List Diagnosis ??? Headache ??? Female stress incontinence ??? Other specified menopausal and postmenopausal disorder ??? [id number] ??? Hypothyroidism ??? Obesity ??? Malignant neoplasm of female breast (H) ??? Constipation ? ? HYPERLIPIDEMIA LDL GOAL <130 ??? Osteoarthritis ??? Depression ??? Hypertension ??? Heart murmur Wt Readings from Last 2 Encounters: 06/30/19 83.2 kg (183 lb 8 oz) 01/13/19 79.2 kg (174 lb 8 oz) BP Readings from Last 3 Encounters: 06/30/19 (!) 144/84 01/13/19 136/80 11/18/18 126/80 Current Outpatient Medications Medication ??? acetaminophen (TYLENOL EX ST ARTHRITIS PAIN) 500 MG tablet ??? amLODIPine (NORVASC) 10 MG tablet ??? celecoxib (CELEBREX) 200 MG capsule ??? FLUoxetine (PROZAC) 40 MG capsule ??? FLUoxetine HCl, PMDD, 20 MG CAPS ??? LEVOTHYROXINE SODIUM 175 MCG OR TABS ??? Turmeric Curcumin 500 MG CAPS No current facility-administered medications for this visit. [...] ??? TSH W/FREE T4 REFLEX 11/23/2008 ??? FALL RISK ASSESSMENT 2019 ??? PNEUMOCOCCAL IMMUNIZATION 65+ HIGH/HIGHEST RISK (1 of 2 - PCV13) 2019 ??? INFLUENZA VACCINE (1) 04/18/2019 ??? PHQ-9 07/16/2019 Lab Results Component Value Date PAP NIL 12/05/2010 June 30, 2019 2:07 PM WARE DEPLOYMENT ENGINEER documented in this encounter Plan of Treatment Not on filedocumented as of this encounter Procedures Procedure Name Priority Date/Time Associated Diagnosis Comme nts URINE CULTURE Routine 06/30/2019 3:27 PM Pre-op exam Results for this SOFTWARE DEPLOYMENT ENGINEER procedure are i n the results section. INR Routine 06/30/2019 3:25 PM Pre-op exam Results f or this SOFTWARE DEPLOYMENT ENGINEER procedure are i n the results section. CBC WITH PLT Routine 06/30/2019 3:04 PM Pre-op exam Results f or this ([facility]) SOFTWARE DEPLOYMENT ENGINEER procedure are i n the results section. BASIC METABOLIC Routine 06/30/2019 3:04 PM Pre-op exam Result s for this PANEL ([facility]) SOFTWARE DEPLOYMENT ENGINEER procedure are in the results section. EKG 12-LEAD Routine 06/30/2019 Pre-op exam COMPLETE W/READ - CLINICS documented in this encounter Results Urine Culture Aerobic Bacterial (06/30/2019 3:27 PM SOFTWARE DEPLOYMENT ENGINEER) Component Value Ref Test Analysis Performed At Patholo gist Range Method Time Signature Specimen Midstream Urine INFECTIOUS Description DISEASES DIAGNOSTIC LABORATORY Culture Micro <10,000 colonies/mL 07/01/2019 INFEC TIOUS mixed urogenital urbano 9:48 PM SOFTWARE DEPLOYMENT ENGINEER DISEA SES Susceptibility testing not routinely done DIAGNOSTIC LABORATORY Specimen (Source) Anatomical Collection Method Collection Time Re ceived Time Location / / Volume Laterality Examination of 06/30/2019 3:27 06/30/2019 3:32 midstream urine PM SOFTWARE DEPLOYMENT ENGINEER PM SOFTWARE DEPLOYMENT ENGINEER specimen (procedure) Vanessa Mills MD LAB - MICRO GENERAL ORDERABL ES Performing Organization Address City/[facility]/ZIP [facility] Phon e Number INFECTIOUS DISEASES [address] [place] [address] DIAGNOSTIC LABORATORY, [facility] INFECTIOUS DISEASES [address] [place] [address], A DIAGNOSTIC LABORATORY INR (06/30/2019 3:25 PM SOFTWARE DEPLOYMENT ENGINEER) athologist Signature INR 0.97 0.86 - 1.14 06/30/2019 [facility] 7:39 PM SOFTWARE DEPLOYMENT ENGINEER [facility] Specimen Anatomical Collection Method Collection Time Receive d Time (Source) Location / / Volume Laterality Blood specimen CAPILLARY BLOOD / 06/30/2019 3:25 PM 3:30 (specimen) Unknown SOFTWARE DEPLOYMENT ENGINEER PM SOFTWARE DEPLOYMENT ENGINEER Vanessa Mills MD LAB - BLOOD ORDERABLES Performing Organization Address City/State/ZIP [facility] Phon e Number [facility] [address] [place] [address] [facility] Basic Metabolic Panel ([place]) (06/30/2019 3:04 PM SOFTWARE DEPLOYMENT ENGINEER) P athologist Signature Glucose 91.0 60.0 - [place] 99.0 mg/dL CLINIC [facility] Urea Nitrogen 15.0 7.0 - 30.0 [place] mg/dL [facility] Calcium 9.4 8.5 - 10.4 [place] mg/dL [facility] Creatinine 0.6 0.6 - 1.3 [place] mg/dL [facility] eGFR Calculated 106.6 >60.0 [place] (Non Black [facility]INIC [facility] Reference) eGFR Calculated 129.0 >60.0 [place] (Black [facility]INIC [facility] Reference) Sodium 141.0 137.3 - [place] 146.3 [facility] mmol/L Potassium 3.9 3.4 - 5.3 [place] mmol/L [facility] Chloride 103.0 94.0 - [place] 109.0 [facility] mmol/L Carbon Dioxide 28.0 20.0 - [place] 32.0 [facility] mmol/L Specimen Anatomical Collection Method Collection Time Receive d Time (Source) Location / / Volume Laterality Blood specimen CAPILLARY BLOOD / 06/30/2019 3:04 PM 3:05 (specimen) Unknown SOFTWARE DEPLOYMENT ENGINEER PM SOFTWARE DEPLOYMENT ENGINEER Vanessa Mills MD LAB - [facility] Performing Organization Address City/State/ZIP Code Phon e Number [facility] [address] [place] [address] [address] CBC with Plt ([facility]) (06/30/2019 3:04 PM SOFTWARE DEPLOYMENT ENGINEER) P athologist Signature WBC 5.6 4.0 - 11.0 [place] K/uL [facility] RBC 4.49 3.80 - 5.20 [place] M/uL [facility] Hemoglobin 12.9 11.7 - 15.7 [place] g/dL [facility] Hematocrit 40.0 35.0 - 47.0 [place] % [facility] MCV 89.1 78.0 - [place] 100.0 fL [facility] MCH 28.7 26.5 - 35.0 [place] pg [facility] MCHC 32.3 32.0 - 36.0 [place] g/dL [facility] Platelets 293.0 150.0 - [place] 450.0 K/uL [facility] RDW 14.3 % [place] [facility] Specimen Anatomical Collection Method Collection Time Receive d Time (Source) Location / / Volume Laterality Blood specimen CAPILLARY BLOOD / 06/30/2019 3:04 PM 3:05 (specimen) Unknown SOFTWARE DEPLOYMENT ENGINEER PM SOFTWARE DEPLOYMENT ENGINEER Vanessa Mills MD LAB - [facility] Performing Organization Address City/State/ZIP Code Phon e Number [facility] [address] [place] [phone] [address] EKG 12-lead complete w/read - Clinics (06/30/2019) Narrative This result has an attachment that is no t available. Vanessa Milsl MD ECG ORDERABLES documented in this encounter Visit Diagnoses Diagnosis Pre-op exam - Primary Preoperative examination, unspecified Primary osteoarthritis of hip, unspecifi ed laterality Depression Major depressive disorder, single episod e, unspecified Post-operative nausea and vomiting Nausea with vomiting documented in this encounter Additional Health Concerns Assessment Noted Time PHQ-9 Depression Total Score: 1 06/30/2019 3:03 PM SOFTWARE DEPLOYMENT ENGINEER documented as of this encounter Care Teams Hr Representative Relationship Specialty Start Date End Date Vanessa Mills MD PCP - General Internal Medicine 07/01/[address] [place] [id number] Khadra Thakur MD Assigned PCP 09/30/16 07/10/[address] [id number] documented as of this encounter
--- OUTSIDE RECORDS SUMMARY | 2022-04-16 19:36 | XMS_ITS | Encounter Summary ---
:1955 Author Organization [place] Address [address] [place] [address] Care Team Providers Name Role Phone Vanessa Mills MD Primary Care Provider [phone] Reason for Visit Reason Onset Date Comments Refill Request 06/04/2020 Amlodipine Encounter Details Date Type Department Care Team Description 06/04/2020 Refill [facility] Vanessa Mills Refill Request [facility] MD Vanessa (Amlodipine) [id number] [place] [address] [phone] Social History Tobacco Use Types Packs/Day Years Used Date Never Smoker Smokeless Tobacco: Never Used Alcohol Use Standard Drinks/Week Comments Yes 0 (1 standard drink = 0.6 oz pure alcoho l) 1 glass of wine per week 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 Date Recorded Female 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 KEEP UPCOMING APPOINTMENT Massiel Cabrera RN 06/06/20 3:41 PM documented in this encounter Plan of Treatment Not on filedocumented as of this encounter Visit Diagnoses Diagnosis Essential hypertension Unspecified essential hypertension documented in this encounter Additional Health Concerns Assessment Noted Time PHQ-9 Depression Total Score: 1 06/30/2019 3:03 PM MONUMENT MASON documented as of this encounter Care Teams Cordwood Cutter Helper Relationship Specialty Start Date End Date Vanessa Mills MD PCP - General Internal Medicine 07/01/[address] [place] [id number] documented as of this encounter
--- OUTSIDE RECORDS SUMMARY | 2022-04-16 19:36 | XMS_ITS | Encounter Summary ---
:1955 Author Organization [place] Address [address] [place] [address]. [place] [address] Care Team Providers Name Role Phone Getachew Mills MD Primary Care Provider [phone] Serum, Khadra Radford MD Unavailable [phone] Serum, Khadra Radford MD Unavailable [phone] Reason for Visit (Routine) - Closed Specialty Diagnoses / Procedures Referred By Contact Refer red To Contact Cardiology Diagnoses 06/30 Patient will check into [address]. Echo cc Procedures ECH COMPLETE [address] [facility] [address] [place], [place] [address] Phone: Fax: Referral ID Status Reason Start Date Expiration Date Visits Requ ested Visits Authorized [id number] Closed 07/23/2017 07/23/2018 1 1 Encounter Details Date Type Department Care Team Description 07/23/2017 Hospital Encounter [facility] Getachew Mills art [facility] [address] [place] [address] [place], [place] [address] [address] [place], [place] [phone] (Wo rk) [address] [phone] Social History Tobacco Use Types Packs/Day Years Used Date Never Smoker Smokeless Tobacco: Never Used Alcohol Use Standard Drinks/Week Comments Yes 0 (1 standard drink = 0.6 oz pure alcoho l) 1 glass of wine per week 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 Date Recorded 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 documented as of this encounter Medications at [...] Acute bronchitis, wheezing unspecified organism amLODIPine (NORVASC) 5 Take 1 tablet (5 mg) 30 tablet 1 08/20/2017 MG tabletIndications: by mouth daily Essential hypertension with goal blood pressure less than 140/90 CALCIUM 600 + D 600-200 1 tablet daily 3 MONTHS 1 09/24/19 08 01/13/2019 MG-UNIT OR TABS FLUoxetine (PROZAC) 40 Take one daily with 90 capsule 3 05/1806/09/2018 MG capsuleIndications: 20mg capsule Major depression, chronic FLUoxetine HCl, PMDD, 20 Take one with 40mg 90 capsule 3 06/09/2018 MG CAPSIndications: capsule daily Major depression, chronic fluticasone (FLONASE) 50 [place] 2 sprays into 1 Bottle 11 04/15/2018 MCG/ACT nasal both nostrils daily sprayIndications: Post-nasal drip LANsoprazole (PREVACID Take one daily 30 tablet 3 6 04/15/2018 SOLUTAB) 15 MG ODT tabIndications: Cough losartan (COZAAR) 50 MG Take 1 tablet (50 90 tablet 3 06/0410/27/2017 tabletIndications: mg) by mouth daily Essential hypertension with goal blood pressure less than 140/90 MULTI-VITAMIN OR TABS 1 tablet daily 0 [...] Name Priority Date/Time Associated Diagnosis Comme nts ECHO COMPLETE Routine 07/23/2017 9:15 AM Heart murmur Results for this [employer] [facility] procedure are i n the results section . documented in this encounter Results Echocardiogram (07/23/2017 9:15 AM [employer]) Anatomical Region Laterality Modality Echocardiography Specimen (Source) Anatomical Collection Method Collection Time Re ceived Time Location / / Volume Laterality 07/23/2017 8:52 AM [facility] [facility] Narrative 07/23/2017 1:25 PM [employer] [facility] [id number]^FABRIZIO^GETACHEW^[facility] [address] [place], [place] [id number] Name: VALERI ROJAS : 1955 Study Date: 07/23/2017 08:52 AM Age: 62 yrs Gender: Female Patient Location: [facility] Reason For Study: Heart murmur Ordering Physician: GETACHEW MILLS Referring Physician: GETACHEW MILLS RENÉ Performed By: Meli Herrera RDCS BSA: 1.9 m2 Height: 65 in Weight: 180 lb HR: 57 BP: 156/98 mmHg __ Procedure Complete Echo Adult. __ Interpretation Summary The left ventricular ejection fraction i s normal. The visual ejection fraction is estimate d at 60-65%. The right atrium is mildly dilated. There is trace to mild pulmonic valvular regurgitation. Borderline aortic root dilatation. __ Left Ventricle The left ventricle is normal in structur e, function and size. There is normal left ventricular wall thickness. The lef t ventricular ejection fraction is normal. The visual ejection fraction is estimated at 60-65%. The transmitral spectral Doppler flow pattern is suggest jasiel of impaired LV relaxation. No regional wall motion abnormalities noted . Right Ventricle The right ventricle is normal in structu re, function and size. Atria The left atrium is borderline dilated. T he right atrium is mildly dilated. There is no atrial shunt seen. Mitral Valve The mitral valve is normal in structure and function. There is trace mitral regurgitation. Tricuspid Valve The tricuspid valve is normal in structu re and function. There is trace tricuspid regurgitation. The right ventr icular systolic pressure is approximated at 23.3 mmHg plus the right atrial pressure. Aortic Valve The aortic valve is normal in structure and function. No aortic regurgitation is present. Pulmonic Valve The pulmonic valve is not well seen, but is grossly normal. There is trace to mild pulmonic valvular regurgitation. Vessels Borderline aortic root dilatation. The I VC is normal in size and reactivity with respiration, suggesting normal cent ral venous pressure. Pericardium The pericardium appears normal. Rhythm Sinus rhythm was noted. __ MMode/2D Measurements & Calculations IVSd: 1.1 cm LVIDd: 4.2 cm LVIDs: 2.5 cm LVPWd: 0.97 cm FS: 40.1 % EDV(Teich): 79.5 ml ESV(Teich): 22.9 ml LV mass(C)d: 141.2 grams LV mass(C)dI: 74.7 grams/m2 Ao root diam: 3.3 cm LA dimension: 3.7 cm asc Aorta Diam: 3.7 cm LA/Ao: 1.1 RWT: 0.46 TAPSE: 3.1 cm Doppler Measurements & Calculations MV E max donovan: 54.8 cm/sec MV A max donovan: 79.0 cm/sec MV E/A: 0.69 MV dec time: 0.32 sec TR max donovan: 241.4 cm/sec TR max P.3 mmHg E/E' av.4 Lateral E/e': 10.5 Medial E/e': 8.3 __ Report approved by: Alessandro Goncalves 07/23/2017 01:25 PM Procedure Note Harlan Hanson MD - 07/23/2017Fo rmatting of this note might be different from the original. [id number]^FABRIZIO^GETACHEW^[facility] [address] [place] [id number] Name: VALERI ROJAS : 1955 Study Date: 07/23/2017 08:52 AM Age: 62 yrs Gender: Female Patient Location: [facility] Reason For Study: Heart murmur Ordering Physician: GETACHEW MILLS Referring Physician: GETACHEW MILLS RENÉ Performed By: Meli Herrera RDCS BSA: 1.9 m2 Height: 65 in Weight: 180 lb HR: 57 BP: 156/98 mmHg __ Procedure Complete Echo Adult. __ Interpretation Summary The left ventricular ejection fraction i s normal. The visual ejection fraction is estimate d at 60-65%. The right atrium is mildly dilated. There is trace to mild pulmonic valvular regurgitation. Borderline aortic root dilatation. __ Left Ventricle The left ventricle is normal in structur e, function and size. There is normal left ventricular wall thickness. The lef t ventricular ejection fraction is normal. The visual ejection fraction is estimated at 60-65%. The transmitral spectral Doppler flow pattern is suggest jasiel of impaired LV relaxation. No regional wall motion abnormalities noted . Right Ventricle The right ventricle is normal in structu re, function and size. Atria The left atrium is borderline dilated. T he right atrium is mildly dilated. There is no atrial shunt seen. Mitral Valve The mitral valve is normal in structure and function. There is trace mitral regurgitation. Tricuspid Valve The tricuspid valve is normal in structu re and function. There is trace tricuspid regurgitation. The right ventr icular systolic pressure is approximated at 23.3 mmHg plus the right atrial pressure. Aortic Valve The aortic valve is normal in structure and function. No aortic regurgitation is present. Pulmonic Valve The pulmonic valve is not well seen, but is grossly normal. There is trace to mild pulmonic valvular regurgitation. Vessels Borderline aortic root dilatation. The I VC is normal in size and reactivity with respiration, suggesting normal cent ral venous pressure. Pericardium The pericardium appears normal. Rhythm Sinus rhythm was noted. __ MMode/2D Measurements & Calculations IVSd: 1.1 cm LVIDd: 4.2 cm LVIDs: 2.5 cm LVPWd: 0.97 cm FS: 40.1 % EDV(Teich): 79.5 ml ESV(Teich): 22.9 ml LV mass(C)d: 141.2 grams LV mass(C)dI: 74.7 grams/m2 Ao root diam: 3.3 cm LA dimension: 3.7 cm asc Aorta Diam: 3.7 cm LA/Ao: 1.1 RWT: 0.46 TAPSE: 3.1 cm Doppler Measurements & Calculations MV E max donovan: 54.8 cm/sec MV A max donovan: 79.0 cm/sec MV E/A: 0.69 MV dec time: 0.32 sec TR max donovan: 241.4 cm/sec TR max P.3 mmHg E/E' av.4 Lateral E/e': 10.5 Medial E/e': 8.3 __ Report approved by: Alessandro Goncalves 07/23/2017 01:25 PM Getachew Mills MD CV ECHO ORDERABLES documented in this encounter Visit Diagnoses Diagnosis Heart murmur Undiagnosed cardiac murmurs documented in this encounter Additional Health Concerns Assessment Noted Time PHQ-9 Depression Total Score: 1 06/11/2017 3:05 PM CDT documented as of this encounter Care Teams Getter Operator Relationship Specialty Start Date End Date Getachew Mills MD PCP - General Internal Medicine 07/01/[address] [place] [address] Khadra Thakur MD PCP - Assigned PCP 09/30/16 10/20/18 [facility] [address] [place] [address] [id number] Khadra Thakur MD Assigned PCP 09/30/16 07/10/19 [facility] [address] [place] [address] [id number] documented as of this encounter
--- OUTSIDE RECORDS SUMMARY | 2022-04-16 19:36 | XMS_ITS | Encounter Summary ---
:1955 Author Organization [facility] Address [address] [place] [address] Care Team Providers Name Role Phone Vanessa Mills MD Primary Care Provider [phone] Reason for Visit Reason Onset Date Comments Patient Cancelled 04/17/2020 Encounter Details Date Type Department Care Team Description 04/13/2020 Office Visit [facility] Vanessa ENCOUNTER--DISREGARD Building [address] [place] [address] (Primary Dx) [address] 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 documented as of this encounter Progress Notes Vanessa Mills MD - 04/13/2020 1:00 PM CDT cancelled Appointment cancelled. Appointment cancelled. 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
--- OUTSIDE RECORDS SUMMARY | 2022-04-16 19:36 | XMS_ITS | Encounter Summary ---
:1955 Author Organization [facility] Address [address] [place] [address] Care Team Providers Name Role Phone Vanessa Mills MD Primary Care Provider [phone] Serum, Khadra Radford MD Unavailable [phone] Serum, Khadra Radford MD Unavailable [phone] Reason for Visit Reason Comments RECHECK BP check Encounter Details Date Type Department Care Team Description 11/26/2017 Office Visit [facility] [address], [address] [place], [place] [id number] Social History Tobacco Use Types Packs/Day Years Used Date Never Smoker Smokeless Tobacco: Never Used Alcohol Use Standard Drinks/Week Comments Yes 0 (1 standard drink = 0.6 oz pure alcoho l) 1 glass of wine per week 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 Date Recorded 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 documented as of this encounter Last Filed Vital Signs Vital Sign Reading Time Taken Comments Blood Pressure 145/85 11/26/2017 3:27 PM CDT Pulse 67 11/26/2017 3:27 PM CDT Temperature 36.8 ??C (98.3 ??F) 11/26/2017 3:27 PM CDT Respiratory Rate - - Oxygen Saturation 96% 11/26/2017 3:27 PM CDT Inhaled Oxygen Concentration - - Weight 86.2 kg (190 lb) 11/26/2017 3:27 PM CDT Height 161.7 cm (5' 3.66) 11/26/2017 3:27 PM CDT Body Mass Index 32.96 11/26/2017 3:27 PM CDT documented in this encounter Progress Notes Vanessa Mills MD - 11/26/2017 3:20 PM CDT Valeri Keenan is a 62 year old female here for the following issues: Essential hypertension with goal blood pressure less than 140/90 Valeri is here for blood pressure check. She brings in her machine from home. She currently takes amlodipine, increased from 5mg to 10mg in Aug 2017. She also takes losartan which was increased from 50mg to 100mg in October 2017. 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 Headache ??? Female stress incontinence ??? Other specified menopausal and postmenopausal disorder ??? iamLUMBAGO ??? Hypothyroidism ??? Obesity ??? Malignant neoplasm of female breast (H) ??? Constipation ? ? HYPERLIPIDEMIA LDL GOAL <130 ??? Osteoarthritis ??? Depression ??? Hypertension ??? Heart murmur Current Outpatient Prescriptions Medication Sig Dispense Refill ??? losartan (COZAAR) 100 MG tablet Take 1 tablet (100 mg) by mouth daily 90 tablet 1 ??? amLODIPine (NORVASC) 10 MG tablet Take 1 daily 90 tablet 0 ??? FLUoxetine (PROZAC) 40 MG capsule Take one daily with 20mg capsule 90 capsule 3 ??? FLUoxetine HCl, PMDD, 20 MG CAPS Take one with 40mg capsule daily 90 capsule 3 ??? piroxicam (FELDENE) 20 MG capsule Take 1 capsule (20 mg) by mouth daily 90 capsule 3 ??? predniSONE (DELTASONE) 20 MG tablet Take 2 tablets on day one then one daily x 4 days 6 tablet 1 ??? LANsoprazole (PREVACID SOLUTAB) 15 MG ODT tab Take one daily 30 tablet 3 ??? fluticasone (FLONASE) 50 MCG/ACT nasal spray [place] 2 sprays into both nostrils daily 1 [...] ??? Morphine Nausea and dizziness EXAM BP 145/85 Pulse 67 Temp 98.3 ??F (36.8 ??C) (Oral) Ht 5' 3.66 (161.7 cm) Wt 190 lb (86.2 kg) SpO2 96% BMI 32.96 kg/m2 Gen: Alert, pleasant, NAD COR: S1,S2, no murmur Lungs: CTA bilaterally, no rhonchi, wheezes or rales Ext: no peripheral edema, pulses full Assessment: (I10) Essential hypertension (primary encounter diagnosis) Comment: Blood pressure is elevated at clinic Plan: amLODIPine (NORVASC) 10 MG tablet, losartan-hydrochlorothiazide (HYZAAR) 100-25 MG per tablet Add HCTZ to the losartan, check BP reading outside of clinic, at fire station or pharmacy. She is to send me readings over the next month. Vanessa Mills MD Internal Medicine/Pediatrics documented in this encounter Nursing Notes Mini Casillas MA - 11/26/2017 3:20 PM CDT 62 year old Chief Complaint Patient presents with ??? RECHECK BP check Blood pressure 145/85, pulse 67, temperature 98.3 ??F (36.8 ??C), temperature source Oral, height 5'3.66 (161.7 cm), weight 190 lb (86.2 kg), SpO2 96 %. Body mass index is 32.96 kg/(m^2). Patient Active Problem List Diagnosis ??? Headache ??? Female stress incontinence ??? Other specified menopausal and postmenopausal disorder ??? iamLUMBAGO ??? Hypothyroidism ??? Obesity ??? Malignant neoplasm of female breast (H) ??? Constipation ? ? HYPERLIPIDEMIA LDL GOAL <130 ??? Osteoarthritis ??? Depression ??? Hypertension ??? Heart murmur Wt Readings from Last 2 Encounters: 11/26/17 190 lb (86.2 kg) 08/15/17 189 lb (85.7 kg) BP Readings from Last 3 Encounters: 11/26/17 145/85 08/15/17 (!) 164/93 06/04/17 (!) 166/95 Current Outpatient Prescriptions Medication ??? losartan (COZAAR) 100 MG tablet ??? amLODIPine (NORVASC) 10 MG tablet ??? FLUoxetine (PROZAC) 40 MG capsule ??? FLUoxetine HCl, PMDD, 20 MG CAPS ??? piroxicam (FELDENE) 20 MG capsule ??? [...] ADVANCE DIRECTIVE PLANNING Q5 YRS 2009 ??? PHQ-9 Q6 MONTHS 12/03/2017 Lab Results Component Value Date PAP NIL 12/05/2010 November 26, 2017 3:29 PM documented in this encounter Plan of Treatment Not on filedocumented as of this encounter Visit Diagnoses Diagnosis Essential hypertension - Primary Unspecified essential hypertension documented in this encounter Additional Health Concerns Assessment Noted Time PHQ-9 Depression Total Score: 1 12/10/2017 7:45 AM CDT documented as of this encounter Care Teams Photovoltaic Fabrication Technician Relationship Specialty Start Date End Date Vanessa Mills MD PCP - General Internal Medicine 07/01/[address] [facility] [address] Khadra Thakur MD PCP - Assigned PCP 09/30/16 10/20/[address] [address] Khadra Thakur MD Assigned PCP 09/30/16 07/10/[address] [address] documented as of this encounter
--- OUTSIDE RECORDS SUMMARY | 2022-04-16 19:36 | XMS_ITS | Encounter Summary ---
:1955 Author Organization [facility] Address [address] [place] [address] Care Team Providers Name Role Phone Vanessa Mills MD Primary Care Provider [phone] Khadra Thakur MD Unavailable [phone] Reason for Referral Consultation (Routine) - Closed Specialty Diagnoses / Procedures Referred By Contact Refer red To Contact Diagnoses Chronic left shoulder pain Left elbow pain Vanessa Mills MD [address] [facility] [place], [place] [address] Referral ID Status Reason Start Date Expiration Date Visits Requ ested Visits Authorized [id number] Closed 01/13/2019 01/13/2020 1 1 Diagnostic Imaging Dexa (Routine) - Closed Specialty Diagnoses / Procedures Referred By Contact Refer red To Contact Diagnoses Annual physical exam Vanessa Mills MD Procedures Dexa hip/pelvis/spine* [address] [facility] [place], [place] [address] Referral ID Status Reason Start Date Expiration Date Visits Requ ested Visits Authorized [id number] Closed 01/13/2019 01/13/2020 1 1 Reason for Visit Reason Comments Physical pt's left shoulder is bother ing her has been ongoing for about 6 months. Also sensetive scalp for abo ut 2 months and possible hair loss. Also when the sun hits a certain spot she can feel it.. Encounter Details Date Type Department Care Team Description 01/13/2019 Office Visit [facility] Vanessa Mills Annual physical exam (Primar y Dx); Phill Mendez MD Hair thinning; Building [address] [place] Scalp irritation; [address] A Chronic left shoulder pain; [address] [place], [place] Left elbow pain [place], [place] [phone] Social History Tobacco Use Types Packs/Day Years Used Date Never Smoker Smokeless Tobacco: Never Used Alcohol Use Standard Drinks/Week Comments Yes 0 (1 standard drink = 0.6 oz pure alcoho l) 1 glass of wine per week 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 Date Recorded Female 06/29/2019 1:44 PM [employer] documented as of this encounter Last Filed Vital Signs Vital Sign Reading Time Taken Comments Blood Pressure 136/80 01/13/2019 1:08 PM CDT Pulse 62 01/13/2019 12:49 PM CDT Temperature 36.4 ??C (97.5 ??F) 01/13/2019 12:49 PM CDT Respiratory Rate - - Oxygen Saturation 98% 01/13/2019 12:49 PM CDT Inhaled Oxygen Concentration - - Weight 79.2 kg (174 lb 8 oz) 01/13/2019 12:49 PM CDT Height 161.2 cm (5' 3.47) 01/13/2019 12:49 PM CDT Body Mass Index 30.46 01/13/2019 12:49 PM CDT documented in this encounter Patient Instructions Patient InstructionsVanessa Mills MD - 01/13/2019 1:00 PM CDT Shingrix vaccine Series of 2 to complete the series Ask your insurance Go to a pharmacy to see if they have it Bone Density testing at [facility] documented in this encounter Progress Notes Vanessa Mills MD - 01/13/2019 1:00 PM CDT Valeri Keenan is here for a general check up. She is fasting. She is up to date on eye exams anddental visits. Wears seat belt-yes. Bike helmet- na. Concerns today: HCM Valeri is here for a check up. She is s/p TAHBSO so no longer needs paps. Also has had bilateral mastectomies in 2006, with breast implants, no longer follows with oncology. Right implant collapsed a bit on the medial side but no acute changes. Colonoscopy due in 2022. Due for DEXA, last done 08/01. Discussed recommendation for shingles vaccine when available. Hypothyroidism She is on levothyroxine, 175 mcg daily. She is followed by an pound keeper and just had her levels check. No dose adjustments were made. Hypertension Valeri is on amlodipine 10mg daily. She discontinued half tablet of Losartan/HCTZ 11/18/18 due to symptoms of orthostatic hypotension. Shoulder Pain Valeri is experiencing LEFT shoulder pain for the past 6 months radiating down to elbow. She has difficulty lifting arm. Pain over the top and posterior shoulder. No known injury. Tender to touch. [place]efthand dominate. Tylenol helps relieve the pain. No hx of shoulder surgery. Sensitive Scalp Valeri reports a few month history of a sensitive scalp and hair loss. She discussed this concern with her hairdresser who did not notice any rashes or bumps. Sensitive when the sun hits it. Patient isnot taking any iron supplements. Palpitations She reports intermittent fluttering in her chest at night. Not associated with exercise. No dizziness or nausea. She takes thyroid medication and is followed by an pound keeper Anxiety She is taking fluoxetine 60mg daily. She reports she is doing well. PHQ9 score = 1 ARELIS 7 score = 1 Health Maintenance Topic Date Due ??? ADVANCED DIRECTIVE PLANNING 1955 ??? DEPRESSION ACTION PLAN 1955 ??? ZOSTER IMMUNIZATION (1 of 2) 2004 ??? PREVENTIVE CARE VISIT 06/04/2018 ??? DEXA 08/04/2018 ??? PHQ-9 10/15/2018 ??? INFLUENZA VACCINE (Season Ended) 2019 ??? LIPID 04/15/2023 ??? COLONOSCOPY 04/16/2023 ??? DTAP/TDAP/TD IMMUNIZATION (3 - Td) 01/14/2024 ??? HEPATITIS C SCREENING Completed ??? HIV SCREENING Completed ??? IPV IMMUNIZATION Aged Out ??? MENINGITIS IMMUNIZATION Aged Out Patient Active Problem List Diagnosis ??? Headache ??? Female stress incontinence ??? Other specified menopausal and postmenopausal disorder ??? iamLUMBAGO ??? Hypothyroidism ??? Obesity ??? Malignant neoplasm of female breast (H) ??? Constipation ? ? HYPERLIPIDEMIA LDL GOAL <130 ??? Osteoarthritis ??? Depression ??? Hypertension ??? Heart murmur Past Surgical History: Procedure Laterality Date ??? C APPENDECTOMY ??? C THYROIDECTOMY 07/2007 total thyroidectomy ??? C VAG HYST,RMV TUBE/OVARY 08/2002 Fibroids, on HRT x 10 months, then D/C ??? CARPAL TUNNEL RELEASE RT/LT ??? COLONOSCOPY 04/16/2013 due 2022 ??? FOOT SURGERY RIGHT 2ND TOE SURGERY ??? FOOT SURGERY 2013 fusion of right foot ??? HC MASTECTOMY, SIMPLE, COMPLETE 03/2007 right with carcinoma, left prophylactic Family History Problem Relation Age of Onset ??? C.A.D. Father [place] 53, at 58 ??? Neurologic Disorder Father Parkinsons ??? Neurologic Disorder Mother headaches ??? Arthritis Mother DJD ??? Hypertension Mother ??? Hypertension Brother Two brothers with HTN ??? Cerebrovascular Disease Maternal Grandmother ??? Circulatory Paternal Grandmother Brain Aneurysm ??? Breast Cancer No family hx of ??? Cancer - colorectal No family hx of ??? Osteoporosis Mother ??? Osteoporosis Paternal Grandmother ??? Cancer Other niece wtih squamous cell ca of tongue, age 42, nonsmoker/no Etoh ??? Prostate Cancer Brother ??? Cancer Mother 95 ?primary vs metastatic ??? 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 no STD hx? no cycle length: na dysmenorrhea/PMS: na Vasomotor sx: mild Contraception: na G 3 P 2 A 1 Self Breast exam: mastectomy Current Outpatient Medications Medication Sig Dispense Refill ??? acetaminophen (TYLENOL EX ST ARTHRITIS PAIN) 500 MG tablet Take 2 tablets by mouth daily ??? amLODIPine (NORVASC) 10 MG tablet Take 1 daily 90 tablet 3 ??? CALCIUM 600 + D 600-200 MG-UNIT OR TABS 1 tablet daily 3 MONTHS 1 YEAR ??? celecoxib (CELEBREX) 200 MG capsule Take 1 capsule (200 mg) by mouth daily 90 capsule 3 ??? FLUoxetine (PROZAC) 40 MG capsule Take one daily with 20mg capsule 90 capsule 3 ??? FLUoxetine HCl, PMDD, 20 MG CAPS Take one daily with 40mg capsule daily 90 capsule 3 ??? LEVOTHYROXINE SODIUM 175 MCG OR TABS 1 TABLET DAILY 30 0 ??? MULTI-VITAMIN OR TABS 1 tablet daily 0 ??? Turmeric Curcumin 500 MG CAPS Take 500 mg by mouth daily 60 capsule 0 ??? VITAMIN C 500 MG OR TABS 1 tablet po qd ??? VITAMIN D 1000 UNIT OR TABS 1 TABLET DAILY 30 0 Allergies Allergen Reactions ??? Ancef [Cefazolin Sodium] Rash ??? Meperidine nausea ??? Morphine Nausea and dizziness ROS CONSTITUTIONAL:NEGATIVE for fever, chills, concerted 15 pound weight loss INTEGUMENTARY/SKIN: NEGATIVE for worrisome rashes, moles or lesions. No evidence for skin changes over scalp. Some hair thinning anteriorally. EYES: NEGATIVE for vision changes or irritation ENT/MOUTH: NEGATIVE for ear, mouth and throat problems RESP:NEGATIVE for significant cough or SOB BREAST: s/p surgery for breast cancer, bilateral implants CV: NEGATIVE for chest pain, ALLAN, orthopnea, PND or peripheral edema GI: NEGATIVE for nausea, abdominal pain, heartburn, or change in bowel habits :NEGATIVE for frequency, dysuria, or hematuria MUSCULOSKELETAL: Left shoulder pain, over bicipital groove and posterior left shoulder. Point tenderness with palpation over lateral epicondyle, L>R NEURO: NEGATIVE for weakness, dizziness or paresthesias ENDOCRINE: NEGATIVE for polyuria/dipsia, temperature intolerance, hair loss, sees pound keeper for thyroid disease HEME/ALLERGY/IMMUNE: NEGATIVE for bleeding problems PSYCHIATRIC: History of anxiety, on fluoxetine, doing well EXAM BP 136/80 (BP Location: Right arm, Patient Position: Sitting, Cuff Size: Adult Large) Pulse 62 Temp 97.5 ??F (36.4 ??C) (Oral) Ht 1.612 m (5' 3.47) Wt 79.2 kg (174 lb 8 oz) SpO2 98% ? No BMI 30.46 kg/m?? GENERAL APPEARANCE: Alert, pleasant, NAD EYES: PERRL, EOMI, conjunctiva clear HENT: TM normal bilaterally. Nose and mouth without lesions NECK: no adenopathy, thyroid normal to palpation RESP: lungs clear to auscultation bilaterally, BREAST: Implants bilaterally no overlying skin change. Right implant with medial flattening, border feels intact and is nontender. Axillae no masses CV: regular rate and rhythm, normal S1 S2, II/ murmur, no carotid bruits ABDOMEN: soft, nontender, without HSM or masses. Bowel sounds normal : Not done RECTAL EXAM: not done MS: extremities normal- no gross deformities noted, no tender, hot or swollen joints. Left Shoulder: tenderness with palpation over bicipital groove and biceps muscle. Tenderness with palpation over posterior left shoulder. Mild limited ROM of left shoulder. SKIN: no suspicious lesions or rashes NEURO: Normal strength and tone, sensory exam grossly normal, DTR normoreflexive in upper and lower extremities PSYCH: mentation appears normal. and affect normal/bright. EXT: no peripheral edema, pedal pulses palpable Assessment: (Z00.00) Annual physical exam (primary encounter diagnosis) Comment: Valeri is a 63 yo female in good health. Pap no longer indicated. Colonoscopy up to date. Mammograms not indicated Plan: Dexa hip/pelvis/spine*, Lipid Profile, Glucose Fasting ([place]) Anticipatory guidance given today regarding diet, exercise, calcium intake. Vaccines are up to date. Recommend shingles vaccine when available. (L65.9) Hair thinning Comment: per patient, Plan: CBC with Diff Plt (LabDAQ), Ferritin, Iron and iron binding capacity Ferritin level is low at 11, Hgb is WNL. Recommend ferrous sulfate 325mg with Vitamin C 250mg bid x2 months recheck level at that time (R23.8) Scalp irritation Comment: no obvious skin changes Plan: monitor for now, notify MD for any acute changes (M25.512, G89.29) Chronic left shoulder pain Comment: acute on chronic symptoms, Rotator cuff and biceps tendon pain Plan: ORTHOPEDICS ADULT REFERRAL Refer to orthopedics for evaluation and treatment (M25.522) Left elbow pain Comment: bilateral epicondylitis Plan: ORTHOPEDICS ADULT REFERRAL Refer to ortho, discussed stretching exercises, recommend ice, and tylenol Vanessa Mills MD Internal Medicine/Pediatrics I, Eve Muñoz, am serving as a scribe to document services personally performed by Dr. Murguia, based on data collection and the provider's statements to me. Dr. Mills has reviewed, edited, and approved the above note. documented in this encounter Nursing Notes Vinny MiniCORINNE - 01/13/2019 1:00 PM CDT 63 year old Chief Complaint Patient presents with ??? Physical pt's left shoulder is bothering her has been ongoing for about 6 months. Also sensetive scalp for about 2 months and possible hair loss. Also when the sun hits a certain spot she can feel it.. Blood pressure 150/81, pulse 62, temperature 97.5 ??F (36.4 ??C), temperature source Oral, height 1.612 m (5' 3.47), weight 79.2 kg (174 lb 8 oz), SpO2 98 %. Body mass index is 30.46 kg/m??. Patient Active Problem List Diagnosis ??? Headache ??? Female stress incontinence ??? Other specified menopausal and postmenopausal disorder ??? iamLUMBAGO ??? Hypothyroidism ??? Obesity ??? Malignant neoplasm of female breast (H) ??? Constipation ? ? HYPERLIPIDEMIA LDL GOAL <130 ??? Osteoarthritis ??? Depression ??? Hypertension ??? Heart murmur Wt Readings from Last 2 Encounters: 01/13/19 79.2 kg (174 lb 8 oz) 11/18/18 78.9 kg (174 lb) BP Readings from Last 3 Encounters: 01/13/19 150/81 11/18/18 126/80 04/15/18 132/80 Current Outpatient Medications Medication ??? acetaminophen (TYLENOL EX ST ARTHRITIS PAIN) 500 MG tablet ??? amLODIPine (NORVASC) 10 MG tablet ??? CALCIUM 600 + D 600-200 MG-UNIT OR TABS ??? celecoxib (CELEBREX) 200 MG capsule ??? FLUoxetine (PROZAC) 40 MG capsule ??? FLUoxetine HCl, PMDD, 20 MG CAPS ??? LEVOTHYROXINE SODIUM 175 MCG OR TABS ??? MULTI-VITAMIN OR TABS ??? Turmeric Curcumin 500 MG CAPS ??? VITAMIN C 500 MG OR TABS ??? VITAMIN D 1000 UNIT OR TABS No current facility-administered medications for this visit. Social History Tobacco Use ??? Smoking status: Never Smoker ??? Smokeless tobacco: Never Used Substance Use Topics ??? Alcohol use: Yes Comment: 1 glass of wine per week ??? Drug use: No Health Maintenance Due Topic Date Due ??? ADVANCED DIRECTIVE PLANNING 1955 ??? DEPRESSION ACTION PLAN 1955 ??? ZOSTER IMMUNIZATION (1 of 2) 2004 ??? PREVENTIVE CARE VISIT 06/04/2018 ??? DEXA 08/04/2018 ??? PHQ-9 10/15/2018 Lab Results Component Value Date PAP NIL 12/05/2010 January 13, 2019 12:51 PM documented in this encounter Plan of Treatment Scheduled Referrals Name Type Priority Associated Diagnoses Order S [facility] ORTHOPEDICS ADULT Referral Routine Chronic left shoulder O rdered: 01/13/2019 REFERRAL pain Left elbow pain documented as of this encounter Procedures Procedure Name Priority Date/Time Associated Diagnosis Comme nts LIPID PROFILE Routine 01/13/2019 1:51 PM Annual physical exam Results for this CDT procedure are i n the results section. IRON AND IRON Routine 01/13/2019 1:51 PM Hair thinning Results for this BINDING CAPACITY CDT procedure a re in the results section. FERRITIN Routine 01/13/2019 1:51 PM Hair thinning Results for this CDT procedure are i n the results section. GLUCOSE FASTING Routine 01/13/2019 1:24 PM Annual physical exa m Results for this (LABDAQ) CDT procedure are i n the results section. CBC WITH DIFF PLT Routine 01/13/2019 1:24 PM Hair thinning Res ults for this (LABDAQ) CDT procedure are i n the results section. documented in this encounter Results Dexa hip/pelvis/spine* (05/12/2019 1:04 PM CDT) Anatomical Region Laterality Modality Dexa Bone Mineral Density Specimen (Source) Anatomical Location Collection Method / Collectio n Time Received Time / Laterality Volume Narrative 05/14/2019 3:31 PM CDT BONE DENSITOMETRY [address] [address] 05/12/2019 ?? PATIENT: Valeri Keenan CHART: [id number] : ??1955 AGE: ??64 year old SEX: ??female REFERRING PROVIDER: ??Aleja Mills MD ?? PROCEDURE: ??Bone density scanning was p erformed using DXA technology of the lumbar spine and hip. ??Scanning was performed on a Absio scanner. ??Reporting is completed in the form [...] >3%, as calculated using the FRAX calculator ([email or web address] [email or web address].shef.ac.[email or web address] or you can google FRAX). ?? [...] ?? Vanessa Mills MD IMTashia DEXA ORDERABLES (ABNORMAL) Iron and iron binding capacity (01/13/2019 1:51 PM CDT) Analysis Performed At Patho logist Time Signature Iron 76 35 - 180 01/13/2019 [facility] ug/dL 6:53 PM CDT [facility] Iron Binding 442 (H) 240 - 430 01/13/2019 [facility] ug/dL 6:53 PM CDT [facility] Iron Saturation 17 15 - 46 % 01/13/2019 [facility] 6:53 PM CDT [facility] Specimen Anatomical Collection Method Collection Time Receive d Time (Source) Location / / Volume Laterality Blood specimen VENOUS BLOOD / 01/13/2019 1:51 PM 01/13 1:52 (specimen) Unknown CDT PM CDT Vanessa Mills MD LAB - BLOOD ORDERABLES Performing Organization Address City/State/ZIP Code Phon e Number [facility] [address] Ferritin (01/13/2019 1:51 PM CDT) P athologist Signature Ferritin 11 8 - 252 01/13/2019 [facility] ng/mL 6:57 PM CDT [facility] Specimen Anatomical Collection Method Collection Time Receive d Time (Source) Location / / Volume Laterality Blood specimen VENOUS BLOOD / 01/13/2019 1:51 PM 01/13 1:52 (specimen) Unknown CDT PM CDT Vanessa Mills MD LAB - BLOOD ORDERABLES Performing Organization Address City/[facility]/ZIP Code Phon e Number [address] Lipid Profile (01/13/2019 1:51 PM CDT) Patholo gist Method Time Signature Cholesterol 160 <200 mg/dL 01/13/2019 [facility] 6:55 PM CDT [facility] Triglycerides 123 <150 mg/dL 01/13/2019 [facility] 6:56 PM CDT [facility] HDL Cholesterol 68 >49 mg/dL 01/13/2019 [facility] 6:59 PM CDT [facility] LDL Cholesterol 67 <100 mg/dL 01/13/2019 [facility] Calculated 6:59 PM CDT [facility] Comment: Desirable: <100 mg/dl Non HDL Cholesterol 92 <130 mg/dL 01/13/2019 6:59 PM CDT [facility] Specimen Anatomical Collection Method Collection Time Receive d Time (Source) Location / / Volume Laterality Blood specimen VENOUS BLOOD / 01/13/2019 1:51 PM 01/13 1:52 (specimen) Unknown CDT PM CDT Vanessa Mills MD LAB - BLOOD ORDERABLES Performing Organization Address City/State/ZIP Code Phon e Number [address] (ABNORMAL) CBC with Diff Plt (LabDAQ) (01/13/2019 1:24 PM CDT) Analysis Performed At Patho logist Time Signature WBC 5.2 4.0 - 11.0 [place] [facility] Lymphocytes # 1.4 0.8 - 5.3 [place] [facility] % Lymphocytes 27.8 20.0 - [place] 48.0 %L [facility] Mid # 0.5 0.0 - 2.2 [place] [facility] Mid % 10.0 0.0 - 20.0 [place] %M [facility] GRANULOCYTES # 3.3 1.6 - 8.3 [place] [facility] % Granulocytes 62.2 40.0 - [place] 75.0 %G [facility] RBC 4.69 3.80 - [place] 5.20 M/uL [facility] Hemoglobin 12.5 11.7 - [place] 15.7 g/dL [facility] Hematocrit 39.9 35.0 [facility] 47.0 % [facility] MCV 85.1 78.0 - [place] 100.0 fL [facility] MCH 26.7 26.5 - [place] 35.0 pg [facility]IN[facility] MCHC 31.3 (L) 32.0 - [place] 36.0 g/dL [facility] Platelets 295.0 150.0 - [place] 450.0 / [facility] RDW 15.3 % [place] [facility] Specimen Anatomical Collection Method Collection Time Receive d Time (Source) Location / / Volume Laterality Blood specimen VENOUS BLOOD / 01/13/2019 1:24 PM 01/13 1:24 (specimen) Unknown CDT PM CDT Vanessa Mills MD LAB - LABDAQ Performing Organization Address City/State/ZIP Code Phon e Number [facility] [address] [place] [phone] [address] Glucose Fasting ([place]) (01/13/2019 1:24 PM CDT) P athologist Signature Glucose Fasting 85.0 51.0 - [place] 109.0 [facility] mg/dL Specimen Anatomical Collection Method Collection Time Receive d Time (Source) Location / / Volume Laterality Blood specimen VENOUS BLOOD / 01/13/2019 1:24 PM 01/13 1:24 (specimen) Unknown CDT PM CDT Vanessa Mills MD LAB - LABDAQ Performing Organization Address City/State/ZIP Code Phon e Number [facility] [address] [place] [phone] [address] documented in this encounter Visit Diagnoses Diagnosis Annual physical exam - Primary Routine general medical examination at a health care facility Hair thinning Alopecia, unspecified Scalp irritation Unspecified disorder of skin and subcuta neous tissue Chronic left shoulder pain Pain in joint, shoulder region Left elbow pain Pain in joint, upper arm Annual physical exam Routine general medical examination at a health care facility documented in this encounter Additional Health Concerns Assessment Noted Time PHQ-9 Depression Total Score: 1 01/27/2019 9:09 AM CDT documented as of this encounter Care Teams Thermal Cutter Helper Relationship Specialty Start Date End Date Vanessa Mills MD PCP - General Internal Medicine 07/01/[address] [place] [phone] Khadra Thakur MD Assigned PCP 09/30/16 07/10/19 [facility] [address] [place] [phone] documented as of this encounter
--- OUTSIDE RECORDS SUMMARY | 2022-04-16 19:36 | XMS_ITS | Encounter Summary ---
:1955 Author Organization [place] Address [address] [place] [address] Care Team Providers Name Role Phone Vanessa Mills MD Primary Care Provider Khadra Thakur MD Unavailable [phone] Encounter Details Date Type Department Care Team Description 06/30/2019 Travel Social History Tobacco Use Types Packs/Day Years Used Date Never Smoker Smokeless Tobacco: Never Used Alcohol Use Standard Drinks/Week Comments Yes 0 (1 standard drink = 0.6 oz pure alcoho l) 1 glass of wine per week 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 Date Recorded Female 06/29/2019 1:44 PM [employer] documented as of this encounter Plan of Treatment Not on filedocumented as of this encounter Visit Diagnoses Not on filedocumented in this encounter Additional Health Concerns Assessment Noted Time PHQ-9 Depression Total Score: 1 06/30/2019 3:03 PM [employer] documented as of this encounter Care Teams Bat Person Relationship Specialty Start Date End Date Vanessa Mills MD PCP - General Internal Medicine 07/01/[address] [place] [address] Khadra Thakur MD Assigned PCP 09/30/16 07/10/[address] [address] documented as of this encounter
--- OUTSIDE RECORDS SUMMARY | 2022-04-16 19:36 | XMS_ITS | Encounter Summary ---
:1955 Author Organization [place] Address [address] [place] [address] Care Team Providers Name Role Phone Vanessa Mills MD Primary Care Provider SerumKhadra MD Unavailable [phone] Reason for Visit Diagnostic Imaging Dexa (Routine) - Closed Specialty Diagnoses / Procedures Referred By Contact Refer red To Contact Diagnoses Asymptomatic postmenopausal status (age-related) (natural) [place]sa Mills, Procedures DX Wrist Heel Radius [address] [facility] [place], [place] [address] Referral ID Status Reason Start Date Expiration Date Visits Requ ested Visits Authorized [id number] Closed 05/12/2019 05/11/2020 1 1 Encounter Details Date Type Department Care Team Description 05/12/2019 Ancillary Procedure [facility] postmenopausal status [address] (age-relat ed) (natural) [address] [place] [address] Social History Tobacco Use Types Packs/Day Years Used Date Never Smoker Smokeless Tobacco: Never Used Alcohol Use Standard Drinks/Week Comments Yes 0 (1 standard drink = 0.6 oz pure alcoho l) 1 glass of wine per week 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 Date Recorded 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 documented in this encounter Results DX Wrist Heel Radius (05/12/2019 1:09 PM CDT) Anatomical Region Laterality Modality Dexa Bone Mineral Density Specimen (Source) Anatomical Location Collection Method / Collectio n Time Received Time / Laterality Volume Narrative 05/14/2019 3:32 PM CDT BONE DENSITOMETRY [address] [address] 05/12/2019 ?? PATIENT: Valeri Keenan CHART: [id number] : ??1955 AGE: ??64 year old SEX: ??female REFERRING PROVIDER: ??Aleja Mills MD ?? PROCEDURE: ??Bone density scanning was p erformed using DXA technology of the lumbar spine and hip. ??Scanning was performed on a Telekenex scanner. ??Reporting is completed in the form of a T-score. ??The T-score represents the standard deviation from p eak bone mass based on a young healthy adult. ?? REFERENCE T-SCORES: ?Normal ?-1.0 and greater ?Osteopenia ?Betwe en -1.0 and -2.5 ?Osteoporosis ?-2.5 and le ss ? RISK FACTORS: ??Post-menopausal ?? CURRENT TREATMENT: ??None listed ?? FINDINGS: ?Lumbar Spine ( L1-L4) ?T-score: ??-0.3, degenerative changes present ?Left Femoral N otilio ?T-score: ??-1.5 ?Forearm (radiu s 33%) ?T-score: ??0.9 The right femur is not acceptable for ev aluation due to previous arthroplasty. ? Lumbar (L1-L4) BMD: 1.153? Left Total Hip BMD: 0.976? Forearm (radius 33%) BMD: 0.953 ?? IMPRESSION Osteopenia., Degenerative changes of the lumbar spine which may falsely elevate results. ?? Patient had a study performed previously , however the scans are not available to compare to the current stud y. ?? Recommendations include ensuring adequat e Calcium and Vitamin D. ?? The current NOF Guidelines recommend charly atment for patients with prior hip or vertebral fracture, T-score -2.5 or b elow, or 10 year risk of any major osteoporotic fracture >20% or 10 [address] ri [address] of hip fracture >3%, as calculated using the FRAX calculator (evgeny w.shef.ac.uk/FRAX or you can google FRAX). ? This patient's risks based on available information, [...] making; one must still use clinical judgement. ? Follow up can be considered in 5 years. Joellen Hendricks M.D. Electronically signed Vanessa Mills MD IMG DEXA ORDERABLES documented in this encounter Visit Diagnoses Diagnosis Asymptomatic postmenopausal status (age- related) (natural) documented in this encounter Additional Health Concerns Assessment Noted Time PHQ-9 Depression Total Score: 1 01/27/2019 9:09 AM CDT documented as of this encounter Care Teams Audiovisual Aids Technician Relationship Specialty Start Date End Date Vanessa Mills MD PCP - General Internal Medicine 07/01/[address] [facility] [place] [place] [address] Khadra Thakur MD Assigned PCP 09/30/16 07/10/[address] [id number] documented as of this encounter
--- OUTSIDE RECORDS SUMMARY | 2022-04-16 19:36 | XMS_ITS | Encounter Summary ---
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
--- OUTSIDE RECORDS SUMMARY | 2022-04-16 19:36 | XMS_ITS | Encounter Summary ---
:1955 Author Organization [place] Address [address] [place] [address] Care Team Providers Name Role Phone Vanessa Mills MD Primary Care Provider [phone] Serum, Khadra Radford MD Unavailable [phone] Serum, Khadra Radford MD Unavailable [phone] Reason for Visit Reason Onset Date Comments Refill Request 06/09/2018 Fluoxetine 40 mg. 20 mg. Losartan Potassium-HCTZ, Piroxicam Encounter Details Date Type Department Care Team Description 06/09/2018 Refill [facility] Vanessa Mills Refill Request Phill Mendez MD (Fluoxetine 40 mg. [address] [place] mg. Losartan 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 Prescription approved per [facility] Refill Protocol. Sharmaine Montilla,RN June 09, 2018 9:30 PM documented in this encounter Plan of Treatment Not on filedocumented as of this encounter Visit Diagnoses Diagnosis Other type of osteoarthritis, unspecifie d site Hypertension Depression Major depressive disorder, single episod e, unspecified documented in this encounter Additional Health Concerns Assessment Noted Time PHQ-9 Depression Total Score: 2 04/17/2018 7:18 AM CDT documented as of this encounter Care Teams Bologna Lacer Relationship Specialty Start Date End Date Vanessa Mills MD PCP - General Internal Medicine 07/01/[address] [place] [address] Khadra Thakur MD PCP - Assigned PCP 09/30/16 10/20/[address] [address] Khadra Thakur MD Assigned PCP 09/30/16 07/10/[address] [id number] documented as of this encounter
--- OUTSIDE RECORDS SUMMARY | 2022-04-16 19:36 | XMS_ITS | Encounter Summary ---
:1955 Author Organization [place] Address [address] [place] [address] Care Team Providers Name Role Phone Vanessa Mills MD Primary Care Provider [phone] Serum, Khadra Radford MD Unavailable [phone] Serum, Khdara Radford MD Unavailable [phone] Reason for Visit Reason Onset Date Comments Refill Request 09/29/2017 Encounter Details Date Type Department Care Team Description 09/29/2017 Refill [facility] Vanessa Mills, Refill Request [facility] Kerry rai MD 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 Routing refill request to provider for review/approval because: BP elevated at last visit- BP Readings from Last 3 Encounters: 08/15/17 (!) 164/93 06/04/17 (!) 166/95 08/08/16 133/78 Carolynn Cross RN ULAR SURGEON documented in this encounter Plan of Treatment Not on filedocumented as of this encounter Visit Diagnoses Diagnosis Hypertension documented in this encounter Additional Health Concerns Assessment Noted Time PHQ-9 Depression Total Score: 1 06/11/2017 3:05 PM CDT documented as of this encounter Care Teams Deputy United [place] Marshal Relationship Specialty Start Date End Date Vanessa Mills MD PCP - General Internal Medicine 07/01/[address] [place] [address] Khadra Thakur MD PCP - Assigned PCP 09/30/16 10/20/[address] [id number] Khadra Thakur MD Assigned PCP 09/30/16 07/10/[address] [id number] documented as of this encounter
--- OUTSIDE RECORDS SUMMARY | 2022-04-16 19:36 | XMS_ITS | Encounter Summary ---
:1955 Author Organization [facility] Address [address] [place] [address] Care Team Providers Name Role Phone Vanessa Mills MD Primary Care Provider [phone] Serum, Khadra Radford MD Unavailable [phone] Serum, Khadra Radford MD Unavailable [phone] Reason for Visit Reason Onset Date Comments Refill Request 05/20/2017 losartan Encounter Details Date Type Department Care Team Description 05/20/2017 Refill [facility] Vanessa Mills Refill Request Phill Condommariama Mendez MD (losartan) [address] [address] [place], [place] [address] [phone] Social History Tobacco Use Types Packs/Day Years Used Date Never Smoker Smokeless Tobacco: Never Used Alcohol Use Standard Drinks/Week Comments Yes 0 (1 standard drink = 0.6 oz pure alcoho l) 1 glass of wine per week 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 Date Recorded 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 Patient needs to be seen because needs visit and BP check. documented in this encounter Plan of Treatment Not on filedocumented as of this encounter Visit Diagnoses Diagnosis Essential hypertension Unspecified essential hypertension documented in this encounter Additional Health Concerns Assessment Noted Time PHQ-9 Depression Total Score: 0 03/27/2016 1:53 PM CDT documented as of this encounter Care Teams Car Repairer Pullman Relationship Specialty Start Date End Date Vanessa Mills MD PCP - General Internal Medicine 07/01/[address] [place] [address] Khadra Thakur MD PCP - Assigned PCP 09/30/16 10/20/[address] [id number] Khadra Thakur MD Assigned PCP 09/30/16 07/10/[address] [id number] documented as of this encounter
--- OUTSIDE RECORDS SUMMARY | 2022-04-16 19:36 | XMS_ITS | Encounter Summary ---
:1955 Author Organization [place] Address [address] [place] [address] Care Team Providers Name Role Phone Vanessa Mills MD Primary Care Provider [phone] Serum, Khadra Radford MD Unavailable [phone] Serum, Khadra Radford MD Unavailable [phone] Encounter Details Date Type Department Care Team Description 02/27/[address] 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 Plan of Treatment Not on filedocumented as of this encounter Results Hemoglobin (03/09/2018 2:58 PM CDT) athologist Signature Hemoglobin 13.7 11.7 - 15.7 03/09/2018 [facility] g/dL 3:22 PM CDT HOSPITAL Specimen Anatomical Collection Method Collection Time Receive d Time (Source) Location / / Volume Laterality Blood specimen 03/09/2018 2:58 PM 018 2:59 (specimen) CDT PM CDT Arvin Reynolds MD LAB - BLOOD ORDERABLES Performing Organization Address City/State/ZIP Code Phon e Number [facility] [address] [place], [place] [address] [facility] [address] [place], [place] [address] [phone] documented in this encounter Visit Diagnoses Diagnosis Healthcare maintenance - Primary Routine general medical examination at a health care facility documented in this encounter Additional Health Concerns Assessment Noted Time PHQ-9 Depression Total Score: 1 12/10/2017 7:45 AM CDT documented as of this encounter Care Teams Veterinary Attendant Relationship Specialty Start Date End Date Vanessa Mills MD PCP - General Internal Medicine 07/01/13 [address] [place] [address] Khadra Thakur MD PCP - Assigned PCP 09/30/16 10/20/[address] [address] Khadra Thakur MD Assigned PCP 09/30/16 07/10/[address] [address] documented as of this encounter
--- OUTSIDE RECORDS SUMMARY | 2022-04-16 19:36 | XMS_ITS | Encounter Summary ---
:1955 Author Organization [facility] Address [address] [place] [address] Care Team Providers Name Role Phone Vanessa Mills MD Primary Care Provider [phone] Serum, Khadra Radford MD Unavailable [phone] Serum, Khadra Radford MD Unavailable [phone] Reason for Visit Reason Comments Pre-Op Exam Total hip replacement at [facility] with Dr. Arvin Corrigan on 05/13/18. Encounter Details Date Type Department Care Team Description 04/15/2018 Office Visit [facility] Vanessa Mills Preop general physical exam (Primary Dx); Phill Mendez MD Hypertension; Building [address] [place] Lipid screening; [address], [place] Post-operative nausea and vomiting [address] [place], [place] [id number] Social History Tobacco Use Types Packs/Day Years Used Date Never Smoker Smokeless Tobacco: Never Used Alcohol Use Standard Drinks/Week Comments Yes 0 (1 standard drink = 0.6 oz pure alcoho l) 1 glass of wine per week 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 Date Recorded Female 06/29/2019 1:44 PM [employer] documented as of this encounter Last Filed Vital Signs Vital Sign Reading Time Taken Comments Blood Pressure 132/80 04/15/2018 10:03 AM CDT Pulse 59 04/15/2018 10:03 AM CDT Temperature 36.7 ??C (98.1 ??F) 04/15/2018 10:03 AM CDT Respiratory Rate - - Oxygen Saturation 97% 04/15/2018 10:03 AM CDT Inhaled Oxygen Concentration - - Weight 83.9 kg (185 lb) 04/15/2018 10:03 AM CDT Height 161.7 cm (5' 3.66) 04/15/2018 10:03 AM CDT Body Mass Index 32.09 04/15/2018 10:03 AM CDT documented in this encounter Patient Instructions Patient InstructionsBina Tam MA - 04/14/2018 8:53 AM CDT Before Your Surgery ??? Call your surgeon if there is any change in your health. This includes signs of a cold or flu (such as a sore throat, runny nose, cough, rash or fever). ??? Do not smoke, drink alcohol or take over the counter medicine (unless your surgeon or primary care doctor tells you to) for the 24 hours before and after surgery. ??? If you take prescribed drugs: Follow your doctor???s orders about which medicines to take and which to stop until after surgery. ??? Eating and drinking prior to surgery: follow the instructions from your surgeon ??? Take a shower or bath the night before surgery. Use the soap your surgeon gave you to gently clean your skin. If you do not have soap from your surgeon, use your regular soap. Do not shave or scrubthe surgery site. Wear clean pajamas and have clean sheets on your bed. documented in this encounter Progress Notes Vanessa Mills MD - 04/14/2018 8:53 AM CDT [address] [facility] [address] Dept: [phone] PRE-OP EVALUATION: Today's date: 04/15/2018 Valeri Keenan (: 1955) presents for pre-operative evaluation assessment as requested by Dr. Rocío Corrigan. She requires evaluation and anesthesia risk assessment prior to undergoing Total Right hip replacement for treatment of severe right hip degenerative arthritis. Proposed Surgery/ Procedure: Total hip replacement--RIGHT Date of Surgery/ Procedure: 05/13/18 Time of Surgery/ Procedure: [facility] Hospital/Surgical Facility: [facility] Fax number for surgical facility: Attn: Dr. Corrigan [phone] Primary Physician: Vanessa Mills Type of Anesthesia Anticipated: General Patient has a Health Care Directive or Living Will: NO 1. NO - Do you have a history of heart attack, stroke, stent, bypass or surgery on an artery in the head, neck, heart or legs? 2. NO - Do you ever have any pain or discomfort in your chest? 3. NO - Do you have a history of Heart Failure? 4. NO - Are you troubled by shortness of breath when: walking on the level, up a slight hill or at night? 5. NO - Do you currently have a cold, bronchitis or other respiratory infection? 6. NO - Do you have a cough, shortness of breath or wheezing? 7. NO - Do you sometimes get pains in the calves of your legs when you walk? 8. NO - Do you or anyone in your family have previous history of blood clots? 9. NO - Do you or does anyone in your family have a serious bleeding problem such as prolonged bleeding following surgeries or cuts? 10. YES - Have you ever had problems with anemia or been told to take iron pills? No current issues 11. NO - Have you had any abnormal blood loss such as black, tarry or bloody stools, or abnormal vaginal bleeding? 12. NO - Have you ever had a blood transfusion? 13. YES - Have you or any of your relatives ever had problems with anesthesia? Post op Nausea and Dizziness 14. NO - Do you have sleep apnea, excessive snoring or daytime drowsiness? 15. NO - Do you have any prosthetic heart valves? 16. NO - Do you have prosthetic joints? 17. NO - Is there any chance that you may be ? HPI: HPI related to upcoming procedure: Valeri is a 63 yo woman with hx of severe osteoarthritis. She has had progressive disease and has had cortisone injections, but continues to have pain. She is here for preoperative assessment to undergo elective total right hip arthroplasty. HYPERTENSION - Valeri has a history of HTN. She currently denies chest pain, palpitations, dyspnea, orthopnea, PND or peripheral edema. Blood pressure readings have been in normal range. She is taking amlodipine 10 mg and half tablet of losartan-htcz 100-25 mg for hypertension. . HYPOTHYROIDISM - Valeri has hypothyroidism and is doing well. She takes levothyroxine 175mcg daily. 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 Valeri notes no tremor, insomnia, hair loss or changes in skin texture. Continuesto take medications as directed, without adverse reactions or side effects. Valeri is in stable health. She is not a smoker. No hx of DM. No history of heart disease .She has asthma and is not currently needing to use inhalers. No hx of sleep apnea. No personal or family history of bleeding or clotting disorders. She reports post op nausea and dizziness with previous surgeries but no other personal or family hx of adverse reaction to anesthesia. History of heart murmur Valeri has a systolic murmur, benign in nature. The following is a synopsis of her last ECHO report from 07/2017. Interpretation Summary ?? The left ventricular ejection fraction is normal. The visual ejection fraction is estimated at 60-65%. The right atrium is mildly dilated. There is trace to mild pulmonic valvular regurgitation. Borderline aortic root dilatation. MEDICAL HISTORY: Patient Active Problem List Diagnosis Date Noted [...] DEXA normal ??? Osteoarthritis 12/05/10 followed by psychiatry adult physician; Affects hands, feet, multiple joints ??? Osteoarthrosis, [...] Laterality Date ??? C APPENDECTOMY ??? C MASTECTOMY, SIMPLE, COMPLETE 03/2007 right with carcinoma, left prophylactic ??? C THYROIDECTOMY 07/2007 total thyroidectomy ??? C VAG HYST,RMV TUBE/OVARY 08/2002 Fibroids, on HRT x 10 months, then D/C ??? CARPAL TUNNEL RELEASE RT/LT ??? COLONOSCOPY 04/16/2013 due 2022 ??? FOOT SURGERY RIGHT 2ND TOE SURGERY ??? FOOT SURGERY 2014 fusion of right foot Current Outpatient Prescriptions Medication Sig Dispense Refill ??? acetaminophen (TYLENOL EX ST ARTHRITIS PAIN) 500 MG tablet Take 2 tablets by mouth daily ??? amLODIPine (NORVASC) 10 MG tablet Take 1 daily 90 tablet 3 ??? CALCIUM 600 + D 600-200 MG-UNIT OR TABS 1 tablet daily 3 MONTHS 1 YEAR ??? FLUoxetine (PROZAC) 40 MG capsule Take one daily with 20mg capsule 90 capsule 3 ??? FLUoxetine HCl, PMDD, 20 MG CAPS Take one with 40mg capsule daily 90 capsule 3 ??? LEVOTHYROXINE SODIUM 175 MCG OR TABS 1 TABLET DAILY 30 0 ??? losartan-hydrochlorothiazide (HYZAAR) 100-25 MG per tablet Take 1 tablet by mouth daily 90 tablet 1 ??? MULTI-VITAMIN OR TABS 1 tablet daily 0 ??? piroxicam (FELDENE) 20 MG capsule Take 1 capsule (20 mg) by mouth daily 90 capsule 3 ??? Turmeric Curcumin 500 MG CAPS Take 500 mg by mouth daily 60 capsule 0 ??? VITAMIN C 500 MG OR TABS 1 tablet po qd ??? VITAMIN D 1000 UNIT OR TABS 1 TABLET DAILY 30 0 ??? LANsoprazole (PREVACID SOLUTAB) 15 MG ODT tab Take one daily 30 tablet 3 OTC products: None, except as noted above Allergies Allergen Reactions ??? Ancef [Cefazolin Sodium] Rash ??? Meperidine nausea ??? Morphine Nausea and dizziness Latex Allergy: NO Social History Substance Use Topics ??? Smoking status: Never Smoker ??? Smokeless tobacco: Never Used ??? Alcohol use Yes Comment: 1 glass of wine per week History Drug Use No REVIEW OF SYSTEMS: Constitutional, neuro, ENT, endocrine, pulmonary, cardiac, gastrointestinal, genitourinary, musculoskeletal, integument and psychiatric systems are negative, except as otherwise noted. EXAM: BP 132/80 Pulse 59 Temp 98.1 ??F (36.7 ??C) (Oral) Ht 5' 3.66 (161.7 cm) Wt 185 lb (83.9 kg) SpO2 97% BMI 32.09 kg/m2 GENERAL APPEARANCE: Antalgic gait. Alert, pleasant EYES: EOMI, PERRL HENT: ear canals and TM's normal and nose and mouth without ulcers or lesions NECK: no adenopathy, no asymmetry, masses, or scars and thyroid normal to palpation RESP: lungs clear to auscultation - no rales, rhonchi or wheezes CV: regular rates and rhythm, systolic Murmur 2/6 ABDOMEN: soft, nontender, no HSM or masses and bowel sounds normal MS: arthritic changes in hands and feet. No redness, swelling or warmth SKIN: no suspicious lesions or rashes NEURO: Normal strength and tone, sensory exam grossly normal, mentation intact and speech normal PSYCH: mentation appears normal. and affect normal/bright EXT: no edema DIAGNOSTICS: EKG: appears normal, Sinus bradycardia rate 55, normal axis, normal intervals, no acute ST/T changesc/w ischemia, no LVH by voltage criteria, unchanged from previous tracings. Read by Vanessa Mills MD Internal Medicine/Pediatrics Results for orders placed or performed in visit on 04/15/18 CBC with platelets Result Value Ref Range WBC 4.4 4.0 - 11.0 10e9/L RBC Count 4.59 3.8 - 5.2 10e12/L Hemoglobin 13.9 11.7 - 15.7 g/dL Hematocrit 41.6 35.0 - 47.0 % MCV 91 78 - 100 fl MCH 30.3 26.5 - 33.0 pg MCHC 33.4 31.5 - 36.5 g/dL RDW 13.5 10.0 - 15.0 % Platelet Count 297 150 - 450 10e9/L Urinalysis ([facility]) Result Value Ref Range Specific [place] Urine 1.025 1.005 - 1.030 pH Urine 7.5 4.5 - 8.0 Leukocyte Esterase UR Trace (A) Negative Nitrite Urine Negative Negative Protein UR Negative Negative Glucose Urine Negative Negative Ketones Urine Negative Negative Urobilinogen mg/dL 0.2 E.U./dL 0.2 E.U./dL Bilirubin UR Negative Negative Blood UR Negative Negative INR Result Value Ref Range INR 0.98 0.86 - 1.14 Basic metabolic panel Result Value Ref Range Sodium 137 133 - 144 mmol/L Potassium 4.1 3.4 - 5.3 mmol/L Chloride 99 94 - 109 mmol/L Carbon Dioxide 32 20 - 32 mmol/L Anion Gap 6 3 - 14 mmol/L Glucose 103 (H) 70 - 99 mg/dL Urea Nitrogen 18 7 - 30 mg/dL Creatinine 0.63 0.52 - 1.04 mg/dL GFR Estimate >90 >60 mL/min/1.7m2 GFR Estimate If Black >90 >60 mL/min/1.7m2 Calcium 9.9 8.5 - 10.1 mg/dL Lipid Profile Result Value Ref Range Cholesterol 227 (H) <200 mg/dL Triglycerides 147 <150 mg/dL HDL Cholesterol 65 >49 mg/dL LDL Cholesterol Calculated 133 (H) <100 mg/dL Non HDL Cholesterol 162 (H) <130 mg/dL ALT Result Value Ref Range ALT 36 0 - 50 U/L AST Result Value Ref Range AST 24 0 - 45 U/L Urine Culture Aerobic Bacterial Result Value Ref Range Specimen Description Midstream Urine Culture Micro <10,000 colonies/mL mixed urogenital urbano Susceptibility testing not routinely done IMPRESSION: (Z01.818) Preop general physical exam (primary encounter diagnosis) Comment: Elective total RIGHT hip arthroplasty Plan: EKG 12-lead complete w/read - Clinics, CBC with platelets, Urinalysis ([facility]), Urine Culture Aerobic Bacterial, INR, CANCELED: INR ([facility]) No contraindication to procedure. No NSAIDs, vitamins, herbs, supplements 10 days prior to procedure. (I10) Hypertension Comment: good control Plan: Basic metabolic panel, losartan-hydrochlorothiazide (HYZAAR) 100-25 MG per tablet, CANCELED: Basic Metabolic Panel ([facility]) Hold JEREMI inhibitor, diuretic on the morning of surgery. OK to take amlodipine (Z13.220) Lipid screening Comment: currently fasting Plan: Lipid Profile, ALT, AST, CANCELED: Lipid Panel Plus ([facility]) (R11.2, Z98.890) Post-operative nausea and vomiting Comment: history of post op nausea an vomiting Plan: Zofran or scopolamine, per anesthesia preference The proposed surgical procedure is considered INTERMEDIATE risk. REVISED CARDIAC RISK INDEX The patient has the following serious cardiovascular risks for perioperative complications such as (IN, PE, VFib and 3?? AV Block): No serious cardiac risks INTERPRETATION: 0 risks: Class I (very low risk - 0.4% complication rate) The patient has the following additional risks for perioperative complications: No identified additional risks ICD-10-CM 1. Preop general physical exam Z01.818 2. Hypertension I10 RECOMMENDATIONS: Hold all Vitamins, herbs, supplements and NSAIDs 10 days prior to procedure. Take only levothyroxineand amlodipine with a sip of water on the morning of surgery. JEREMI Inhibitor or Angiotensin Receptor Carolyn (ARB) Use Jeremi inhibitor or Angiotensin Receptor Carolyn (ARB) and should HOLD this medication for the 24 hoursprior to surgery. APPROVAL GIVEN to proceed with proposed procedure, without further diagnostic evaluation Signed Electronically by: Vanessa Mills MD Copy of this evaluation report is provided to requesting physician. Eve Auguste, am serving as a scribe to document services personally performed by Dr. Murguia, based on data collection and the provider's statements to me. [facility] Preop Guidelines Revised Cardiac Risk Index documented in this encounter Nursing Notes Mini Casillas CORINNE - 04/15/2018 10:00 AM CDT 63 year old Chief Complaint Patient presents with ??? Pre-Op Exam Total hip replacement at [facility] with Dr. Arvin Corrigan on 05/13/18. Blood pressure 132/80, pulse 59, temperature 98.1 ??F (36.7 ??C), temperature source Oral, height 5'3.66 (161.7 cm), weight 185 lb (83.9 kg), SpO2 97 %. Body mass index is 32.09 kg/(m^2). Patient Active Problem List Diagnosis ??? Headache ??? Female stress incontinence ??? Other specified menopausal and postmenopausal disorder ??? iamLUMBAGO ??? Hypothyroidism ??? Obesity ??? Malignant neoplasm of female breast (H) ??? Constipation ? ? HYPERLIPIDEMIA LDL GOAL <130 ??? Osteoarthritis ??? Depression ??? Hypertension ??? Heart murmur Wt Readings from Last 2 Encounters: 04/15/18 185 lb (83.9 kg) 11/26/17 190 lb (86.2 kg) BP Readings from Last 3 Encounters: 04/15/18 132/80 11/26/17 145/85 08/15/17 (!) 164/93 Current Outpatient Prescriptions Medication ??? acetaminophen (TYLENOL EX ST ARTHRITIS PAIN) 500 MG tablet ??? amLODIPine (NORVASC) 10 MG tablet ??? CALCIUM 600 + D 600-200 MG-UNIT OR TABS ??? FLUoxetine (PROZAC) 40 MG capsule ??? FLUoxetine HCl, PMDD, 20 MG CAPS ??? LEVOTHYROXINE SODIUM 175 MCG OR TABS ??? losartan-hydrochlorothiazide (HYZAAR) 100-25 MG per tablet ??? MULTI-VITAMIN OR TABS ??? piroxicam (FELDENE) 20 MG capsule ??? Turmeric Curcumin 500 MG CAPS ??? VITAMIN C 500 MG OR TABS ??? VITAMIN D 1000 UNIT OR TABS ??? albuterol (PROAIR HFA, PROVENTIL HFA, VENTOLIN HFA) 108 (90 BASE) MCG/ACT inhaler ??? fluticasone (FLONASE) 50 MCG/ACT nasal spray ??? LANsoprazole (PREVACID SOLUTAB) 15 MG ODT tab ??? predniSONE (DELTASONE) 20 MG tablet No current facility-administered medications for this visit. Social History Substance Use Topics ??? Smoking status: Never Smoker ??? Smokeless tobacco: Never Used ??? Alcohol use Yes Comment: 1 glass of wine per week Health Maintenance Due Topic Date Due ??? DEPRESSION ACTION PLAN Q1 YR 1972 ??? TSH Q1 YEAR 11/23/2008 ??? ADVANCE DIRECTIVE PLANNING Q5 YRS 2009 Lab Results Component Value Date PAP NIL 12/05/2010 April 15, 2018 10:05 AM documented in this encounter Plan of Treatment Not on filedocumented as of this encounter Procedures Procedure Name Priority Date/Time Associated Diagnosis Comme nts INR Routine 04/15/2018 10:55 Preop general Results fo r this AM CDT physical exam procedure are in the results section. LIPID PROFILE Routine 04/15/2018 10:55 Lipid screening Results for this AM CDT procedure are i n the results section. AST Routine 04/15/2018 10:55 Lipid screening Results for this AM CDT procedure are i n the results section. ALT Routine 04/15/2018 10:55 Lipid screening Results for this AM CDT procedure are i n the results section. URINE CULTURE Routine 04/15/2018 10:55 Preop general Results f or this AM CDT physical exam procedure are in the results section. BASIC METABOLIC Routine 04/15/2018 10:55 Hypertension Results for this PANEL AM CDT procedure are i n the results section. CBC WITH PLATELETS Routine 04/15/2018 10:55 Preop general Resu lts for this AM CDT physical exam procedure are in the results section. URINALYSIS(LABDAQ) Routine 04/15/2018 10:33 Preop general Resu lts for this AM CDT physical exam procedure are in the results section. EKG 12-LEAD Routine 04/15/2018 Preop general COMPLETE W/READ - physical exam CLINICS documented in this encounter Results AST (04/15/2018 10:55 AM CDT) P athologist Signature AST 24 0 - 45 U/L 04/15/2018 [facility] 3:52 PM [facility] Specimen Anatomical Collection Method Collection Time Receive d Time (Source) Location / / Volume Laterality Blood specimen VENOUS BLOOD / 04/15/2018 10:55 018 (specimen) Unknown AM CDT 10:56 AM CDT Vanessa Mills MD LAB - BLOOD ORDERABLES Performing Organization Address City/[facility]/ZIP Code Phon e Number [facility] [address] [place] [address] [facility] ALT (04/15/2018 10:55 AM CDT) P athologist Signature ALT 36 0 - 50 U/L 04/15/2018 [facility] 3:52 PM [facility] Specimen Anatomical Collection Method Collection Time Receive d Time (Source) Location / / Volume Laterality Blood specimen VENOUS BLOOD / 04/15/2018 10:55 018 (specimen) Unknown AM CDT 10:56 AM CDT Vanessa Mills MD LAB - BLOOD ORDERABLES Performing Organization Address City/[facility]/ZIP Code Phon e Number [facility] [address] [place] [address] [facility] (ABNORMAL) Lipid Profile (04/15/2018 10:55 AM CDT) P athologist Signature Cholesterol 227 (H) <200 mg/dL 04/15/2018 [facility] 3:52 PM [facility] Comment: Desirable: <200 mg/dl Triglycerides 147 <150 mg/dL 04/15/2018 3:52 PM [facility] HDL Cholesterol 65 >49 mg/dL 04/15/2018 3:52 PM [facility] LDL Cholesterol 133 (H) <100 mg/dL 04/15/2018 3:52 PM [facility]IV [facility] Comment: Above desirable: ??100-129 mg/dl Borderline High: ??130-159 mg/dL High: ? 160-189 mg/dL Very high: ? >189 mg/dl Non HDL Cholesterol 162 (H) <130 mg/dL 04/15/2018 3:52 PM [facility] Comment: Above Desirable: ??130-159 mg/dl Borderline high: ??160-189 mg/dl High: ? 190-219 mg/dl Very high: ? >219 mg/dl Specimen Anatomical Collection Method Collection Time Receive d Time (Source) Location / / Volume Laterality Blood specimen VENOUS BLOOD / 04/15/2018 10:55 018 (specimen) Unknown AM CDT 10:56 AM CDT Vanessa Mills MD LAB - BLOOD ORDERABLES Performing Organization Address City/State/ZIP Code Phon e Number [facility] [address] [place], [place] [id number] [place] [address] (ABNORMAL) Basic metabolic panel (04/15/2018 10:55 AM CDT) Analysis Performed At Patho logist Time Signature Sodium 137 133 - 144 04/15/2018 [facility] mmol/L 3:52 PM CDT [facility] Potassium 4.1 3.4 - 5.3 04/15/2018 [facility] mmol/L 3:52 PM CDT [facility] Chloride 99 94 - 109 04/15/2018 [facility] mmol/L 3:52 PM CDT [facility] Carbon Dioxide 32 20 - 32 04/15/2018 [facility] mmol/L 3:52 PM T [facility] Anion Gap 6 3 - 14 04/15/2018 [facility] mmol/L 3:52 PM T [facility] Glucose 103 (H) 70 - 99 04/15/2018 [facility] mg/dL 3:52 PM CDT [facility] Urea Nitrogen 18 7 - 30 04/15/2018 [facility] mg/dL 3:52 PM T [facility] Creatinine 0.63 0.52 - 04/15/2018 [facility] 1.04 mg/dL 3:52 PM T [facility] GFR Estimate >90 >60 04/15/2018 [facility] mL/min/1.7 3:52 PM CDT [address] Comment: Non GFR Calc GFR Estimate If >90 >60 mL/min/1.7m2 04/15/2018 3:52 P M [facility] Black [facility] Comment: GFR Calc Calcium 9.9 8.5 - 10.1 mg/dL 04/15/2018 3:52 PM CDT [facility] Specimen Anatomical Collection Method Collection Time Receive d Time (Source) Location / / Volume Laterality Blood specimen VENOUS BLOOD / 04/15/2018 10:55 018 (specimen) Unknown AM CDT 10:56 AM CDT Vanessa Mills MD LAB - BLOOD ORDERABLES Performing Organization Address City/[facility]/ZIP Code Phon e Number [facility] [address] [place] [address] [facility] INR (04/15/2018 10:55 AM CDT) P athologist Signature INR 0.98 0.86 - 1.14 04/15/2018 [facility] 5:21 PM CDT [facility] Specimen Anatomical Collection Method Collection Time Receive d Time (Source) Location / / Volume Laterality Blood specimen VENOUS BLOOD / 04/15/2018 10:55 018 (specimen) Unknown AM CDT 10:56 AM CDT Vanessa Mills MD LAB - BLOOD ORDERABLES Performing Organization Address City/State/ZIP Code Phon e Number [facility] [address] [place] [address] [facility] Urine Culture Aerobic Bacterial (04/15/2018 10:55 AM CDT) Component Value Ref Test Analysis Performed At [facility] gist Range Method Time Signature Specimen Midstream Urine INFECTIOUS Description DISEASE DIAGNOSTIC LABORATORY Culture Micro <10,000 colonies/mL 04/16/2018 INFEC TIOUS mixed urogenital urbano 9:47 PM CDT [facility] Susceptibility testing not routinely done DIAGNOSTIC LABORATORY Specimen (Source) Anatomical Collection Method Collection Time Re ceived Time Location / / Volume Laterality Examination of 04/15/2018 10:55 8 midstream urine AM CDT 10:56 AM CDT specimen (procedure) Vanessa Mills MD LAB - MICRO GENERAL ORDERABL ES Performing Organization Address City/State/ZIP Code Phon e Number INFECTIOUS DISEASES [address] [place] [address] DIAGNOSTIC LABORATORY, [facility] INFECTIOUS DISEASE [address] [place] [address], [facility] DIAGNOSTIC LABORATORY CBC with platelets (04/15/2018 10:55 AM CDT) P athologist Signature WBC 4.4 4.0 - 11.0 04/15/2018 [facility] 10e9/L 3:17 PM CDT [facility] RBC Count 4.59 3.8 - 5.2 04/15/2018 [facility] 10e12/L 3:17 PM CDT [facility] Hemoglobin 13.9 11.7 - 04/15/2018 [facility] 15.7 g/dL 3:17 PM CDT [facility] Hematocrit 41.6 35.0 - 04/15/2018 [facility] 47.0 % 3:17 PM CDT [facility] MCV 91 78 - 100 04/15/2018 [facility] fl 3:17 PM CDT [facility] MCH 30.3 26.5 - 04/15/2018 [facility] 33.0 pg 3:17 PM CDT [facility] MCHC 33.4 31.5 - 04/15/2018 [facility] 36.5 g/dL 3:17 PM CDT [facility] RDW 13.5 10.0 - 04/15/2018 [facility] 15.0 % 3:17 PM CDT [facility] Platelet Count 297 150 - 450 04/15/2018 [facility] 10e9/L 3:17 PM CDT [facility] Specimen Anatomical Collection Method Collection Time Receive d Time (Source) Location / / Volume Laterality Blood specimen VENOUS BLOOD / 04/15/2018 10:55 018 (specimen) Unknown AM CDT 10:56 AM CDT Vanessa Mills MD LAB - BLOOD ORDERABLES Performing Organization Address City/State/ZIP Code Phon e Number [facility] [address] [place] [address] [facility] (ABNORMAL) Urinalysis ([facility]) (04/15/2018 10:33 AM CDT) [facility] gist Method Time Signature Specific [place] 1.025 1.005 - [place] Urine 1.030 [facility] pH Urine 7.5 4.5 - 8.0 [facility] Leukocyte Trace (A) Negative [place] Esterase UR CLINIC LAB[facility] Nitrite Urine Negative Negative [facility] Protein UR Negative Negative [facility] Glucose Urine Negative Negative [facility] [facility] Ketones Urine Negative Negative [facility] Urobilinogen 0.2 E.U./dL 0.2 E.U./dL [place] mg/dL [facility] Bilirubin UR Negative Negative [facility] Blood UR Negative Negative [facility] Specimen Anatomical Collection Method Collection Time Receive d Time (Source) Location / / Volume Laterality Urine specimen 04/15/2018 10:33 8 (specimen) AM CDT 10:33 AM CDT Vanessa Mills MD LAB - LABDAQ Performing Organization Address City/State/ZIP Code Phon e Number [facility] [address] [place] [id number] [address] EKG 12-lead complete w/read - Clinics (04/15/2018) Narrative This result has an attachment that is no t available. Vanessa Mills MD ECG ORDERABLES documented in this encounter Visit Diagnoses Diagnosis Preop general physical exam - Primary Other specified pre-operative examinatio n Hypertension Lipid screening Screening for lipoid disorders Post-operative nausea and vomiting Nausea with vomiting documented in this encounter Additional Health Concerns Assessment Noted Time PHQ-9 Depression Total Score: 2 04/17/2018 7:18 AM CDT documented as of this encounter Care Teams Bookkeeper Receptionist Relationship Specialty Start Date End Date Vanessa Mills MD PCP - General Internal Medicine 07/01/[address] [place] [id number] Khadra Thakur MD PCP - Assigned PCP 09/30/16 10/20/[address] [address] Khadra Thakur MD Assigned PCP 09/30/16 07/10/[address] [address] documented as of this encounter
--- OUTSIDE RECORDS SUMMARY | 2022-04-16 19:36 | XMS_ITS | Encounter Summary ---
:1955 Author Organization [facility] Address [address] [place] [address]. [place] [address] Care Team Providers Name Role Phone Vanessa Mills MD Primary Care Provider [phone] Serum, Khadra Radford MD Unavailable [phone] Serum, Khadra Radford MD Unavailable [phone] Reason for Visit Reason Comments Physical has some stomach problems Refill Request Piroxicam Encounter Details Date Type Department Care Team Description 06/04/2017 Office Visit [facility] Vanessa Mills Annual physical exam (Primar y Dx); Phill Mendez MD Hyperlipidemia LDL goal <130; Building [address] [place] Hypertension; 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 documented as of this encounter Last Filed Vital Signs Vital Sign Reading Time Taken Comments Blood Pressure 166/95 06/04/2017 3:17 PM CDT Pulse 63 06/04/2017 3:17 PM CDT Temperature 36.7 ??C (98.1 ??F) 06/04/2017 3:17 PM CDT Respiratory Rate - - Oxygen Saturation 96% 06/04/2017 3:17 PM CDT Inhaled Oxygen Concentration - - Weight 86 kg (189 lb 8 oz) 06/04/2017 3:17 PM CDT Height 161.7 cm (5' 3.66) 06/04/2017 3:17 PM CDT Body Mass Index 32.87 06/04/2017 3:17 PM CDT documented in this encounter Patient Instructions Patient InstructionsVanessa Mills MD - 06/01/2017 10:19 PM CDT Tylenol 3000mg per day Extra strength 500mg , take 2 tablets 3x per day. Shingles vaccine Please call you insurance carrier to see if shingles vaccine is covered. If so, then ask about where to go to get the vaccine-pharmacy vs clinic. Preventive Health Recommendations Female Ages 50 - 64 Yearly exam: See your health care provider every year in order to o Review health changes. o Discuss preventive care. o Review your medicines if your doctor has prescribed any. ??? Get a Pap test every three years (unless you have an abnormal result and your provider advises testing more often). ??? If you get Pap tests with HPV test, you only need to test every 5 years, unless you have an abnormal result. ??? You do not need a Pap test if your uterus was removed (hysterectomy) and you have not had cancer. ??? You should be tested each year for STDs (sexually transmitted diseases) if you're at risk. ??? Have a mammogram every 1 to 2 years. ??? Have a colonoscopy at age 50, or have a yearly FIT test (stool test). These exams screen for colon cancer. ??? Have a cholesterol test every 5 years, or more often if advised. ??? Have a diabetes test (fasting glucose) every three years. If you are at risk for diabetes, you should have this test more often. ??? If you are at risk for osteoporosis (brittle bone disease), think about having a bone density scan (DEXA). Shots: Get a flu shot each year. Get a tetanus shot every 10 years. Nutrition: ??? Eat at least 5 servings of fruits and vegetables each day. ??? Eat whole-grain bread, whole-wheat pasta and brown rice instead of white grains and rice. ??? Talk to your provider about Calcium and Vitamin D. Lifestyle ??? Exercise at least 150 minutes a week (30 minutes a day, 5 days a week). This will help you control your weight and prevent disease. ??? Limit alcohol to one drink per day. ??? No smoking. ??? Wear sunscreen to prevent skin cancer. ??? See your dentist every six months for an exam and cleaning. ??? See your eye doctor every 1 to 2 years. documented in this encounter Progress Notes Vanessa Mills MD - 06/04/2017 3:00 PM CDT Valeri Rojas is here for a general check up. She is fasting. 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 Up to date on dental visits. Wears seat belt- yes. Bike helmet- yes. Concerns today: HCM Valeri is here for a check up. She is s/p TAHBSO so no longer needs paps. Also has had bilateral mastectomies in 2006. She has had implants. Right implant collapsed a bit on the medial side but no acute changes. Colonoscopy due in 2022. She takes stool softeners. Declines flu vaccines. Diet: Eating mostly veggies and proteins Advanced Directive: has one at home, has not completed it. Discussed best way to ensure her wishes are met is to have a conversation with spouse or her proxy. Influenza vaccine: declines Shingles vaccine: gave information today Hypothyroidism She is on levothyroxine, 175 mcg daily. She is followed by an program proposals coordinator and just had her levels check. No dose a adjustments were made. She takes it at night. Hypertension Valeri is on losartan 25mg daily. She went to donate blood a month ago and BP was high then, SBP 160. Some headache, no vision changes. No chest pain. No SOB. She has gained weight over the past year. Not exercising as much due to low back pain. Back pain She has been followed by orthopedics for low back pain. She recently had a L4-5 steroid injection but it did not really help. Seeing a chiropractor, 2x , also using massage, acupuncture. Doing better. Had fallen in Sep, then in December sought medical help with orthopedic surgeon. She had a right hip injection, that helped for a week, Had seen ARI Nava for this treatment. He did MRI. She currently does stretches and she was told to return if she wished to consider a second injection. No change in bladder/ bowel function. Heartburn Ongoing x 6 wks, burping. Was taking ranitidine. Hearing Aid Technician gave supplement which may help. Some pills may get stuck. Fullness . No acid burning. No abdominal pain. Not bothering her at night. Avoids spicy foods. She takes advil 3 per day in the morning, then 2 additional Advil PM at bedtime. She also takes prescription, Piroxicam. discussed adding NO NSAIDs to the piroxicam, only use ES tylenol 1000mg tid if needed. Health Maintenance Topic Date Due ??? TSH Q1 YEAR 11/23/2008 ??? ADVANCE DIRECTIVE PLANNING Q5 YRS 2009 ??? INFLUENZA VACCINE (SYSTEM ASSIGNED) 04/18/2017 ??? DEXA Q3 YR 08/04/2018 ??? LIPID MONITORING Q5 YEARS 03/25/2021 ??? COLONOSCOPY Q10 YR 04/16/2023 ??? TETANUS Q10 YR 01/14/2024 ??? HEPATITIS C SCREENING Completed Patient Active Problem List Diagnosis ??? Headache ??? Female stress incontinence ??? Other specified menopausal and postmenopausal disorder ??? iamLUMBAGO ??? Hypothyroidism ??? Obesity ??? Malignant neoplasm of female breast (H) ??? Constipation ? ? HYPERLIPIDEMIA LDL GOAL <130 ??? Osteoarthritis ??? Depression ??? Hypertension Past Surgical History: Procedure Laterality Date ??? [...] FOOT SURGERY 2013 fusion of right foot Family History Problem Relation Age of Onset ??? C.A.D. Father [place] 53, at 58 ??? Neurologic Disorder Father Parkinsons ??? Neurologic Disorder Mother headaches ??? Arthritis Mother DJD ??? Hypertension Mother ??? Hypertension Brother Two brothers with HTN ??? CEREBROVASCULAR DISEASE Maternal Grandmother ??? Circulatory Paternal Grandmother Brain Aneurysm ??? Breast Cancer No family hx of ??? Cancer - colorectal No family hx of ??? OSTEOPOROSIS Mother ??? OSTEOPOROSIS Paternal Grandmother ??? CANCER Other niece wtih squamous cell ca of tongue, age 42, nonsmoker/no Etoh ??? Prostate Cancer Brother ??? CANCER Mother 95 ?primary vs metastatic ??? Neurologic Disorder Brother parkinson's 63 Social ? 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 Caffeine: 2 Exercise: Walks 1/2 miles per day OUTSIDE [place] HISTORY: LMP: hysterectomy Hx abnormal pap? no STD hx? no cycle length: na dysmenorrhea/PMS: na Vasomotor sx: mild Contraception: na G 3 P 2 A 1 Self Breast exam: mastectomy Current Outpatient Prescriptions Medication Sig Dispense Refill ??? losartan (COZAAR) 25 MG tablet Take 1 po day. Needs BP check/visit/labs for further refills 30 tablet 0 ??? FLUoxetine (PROZAC) 40 MG capsule Take one daily with 20mg capsule 90 capsule 0 ??? FLUoxetine HCl, PMDD, 20 MG CAPS Take one with 40mg capsule daily 90 capsule 0 ??? predniSONE (DELTASONE) 20 MG tablet Take 2 tablets on day one then one daily x 4 days 6 tablet 1 ??? LANsoprazole (PREVACID SOLUTAB) 15 MG ODT tab Take one daily 30 tablet 3 ??? fluticasone (FLONASE) 50 MCG/ACT nasal spray [place] 2 sprays into both nostrils daily 1 Bottle 11 ??? albuterol (PROAIR HFA, PROVENTIL HFA, VENTOLIN HFA) 108 (90 BASE) MCG/ACT inhaler Inhale 2 puffsinto the lungs every 4 hours as needed for shortness of breath / dyspnea or wheezing 1 Inhaler 3 ??? piroxicam (FELDENE) 20 MG capsule Take 1 capsule (20 mg) by mouth daily 90 capsule 0 ??? Turmeric Curcumin 500 MG CAPS [...] RESP:NEGATIVE for significant cough or SOB BREAST: NEGATIVE for masses, tenderness or discharge CV: NEGATIVE for chest pain, palpitations, ALLAN, orthopnea, PND or peripheral edema GI: NEGATIVE for nausea, abdominal pain, heartburn, or change in bowel habits :NEGATIVE for frequency, dysuria, or hematuria MUSCULOSKELETAL:Low back pain and hip pain. She has RA and OA, follows with a and p technician NEURO: NEGATIVE for weakness, dizziness or paresthesias ENDOCRINE: NEGATIVE for polyuria/dipsia, temperature intolerance, skin/hair changes HEME/ALLERGY/IMMUNE: NEGATIVE for bleeding problems PSYCHIATRIC: NEGATIVE for changes in mood or affect EXAM BP (!) 166/95 (BP Location: Right arm, Patient Position: Chair, Cuff Size: Adult Large) Pulse 63 Temp 98.1 ??F (36.7 ??C) (Oral) Ht 5' 3.66 (161.7 cm) Wt 189 lb 8 oz (86 kg) SpO2 96% BMI 32.87 kg/m2 GENERAL APPEARANCE: Alert, pleasant, NAD EYES: PERRL, EOMI, conjunctiva clear HENT: TM normal bilaterally. Nose and mouth without lesions NECK: no adenopathy, thyroid normal to palpation RESP: lungs clear to auscultation bilaterally BREAST: Implants bilaterally no overlying skin change. Right implant with medial flattening, border feels intact and is nontender. Axillae no masses CV: regular rate and rhythm, normal S1 S2, II/ murmur, no carotid bruits ABDOMEN: soft, nontender, without HSM or masses. Bowel sounds normal : Not done RECTAL EXAM: not done MS: some deformity of fingers, toes, no red or hot joints seen today. Synovial thickeing both hands. SKIN: no suspicious lesions or rashes NEURO: Normal strength and tone, sensory exam grossly normal, DTR normoreflexive in upper and lower extremities PSYCH: mentation appears normal. and affect normal/bright. EXT: no peripheral edema, pedal pulses palpable Assessment: (Z00.00) Annual physical exam (primary encounter diagnosis) Comment: 62 yo woman in stable health Plan: Anticipatory guidance given today regarding diet, exercise, calcium intake. She declines vaccines at this time. Vaccines otherwise up to date. She no longer needs mammograms or paps. She may follow up with plastic surgeon if she wishes, regarding her implants. (E78.5) Hyperlipidemia LDL goal <130 Comment: She is fasting today, no current statin use. LDL Cholesterol Calculated Date Value Ref Range Status 03/25/2016 115 (H) <100 mg/dL Final Comment: Above desirable: 100-129 mg/dl Borderline High: 130-159 mg/dL High: 160-189 mg/dL Very high: >189 mg/dl Plan: Lipid Panel ([place]) await lab results (I10) Hypertension Comment: blood pressure high today Plan: Comprehensive metabolic panel, losartan (COZAAR) 50 MG tablet Increase losartan to 50mg daily (F32.9) Depression Comment: mood is stable Plan: FLUoxetine (PROZAC) 40 MG capsule, FLUoxetine HCl, PMDD, 20 MG CAPS She has refills of prozac and bupriopion (M19.90) Other type of osteoarthritis, unspecified site Comment: mainly hands feet. Plan: piroxicam (FELDENE) 20 MG capsule Refilled piroxicam. Do not take additional NSAIDs due to cough. (R01.1) Heart murmur Comment: longstanding murmur Plan: Echocardiogram Refer for routine Aortic Echo. She has mildly dilated aortic root and this should be followed. Vanessa Mills MD Internal Medicine/Pediatrics documented in this encounter Nursing Notes Mini Casillas MA - 06/04/2017 3:00 PM CDT 62 year old Chief Complaint Patient presents with ??? Physical has some stomach problems ??? Refill Request Piroxicam Blood pressure (!) 166/95, pulse 63, temperature 98.1 ??F (36.7 ??C), temperature source Oral, height 5' 3.66 (1.617 m), weight 189 lb 8 oz (86 kg), SpO2 96 %. Body mass index is 32.87 kg/(m^2). Patient Active Problem List Diagnosis ??? Headache ??? Female stress incontinence ??? Other specified menopausal and postmenopausal disorder ??? iamLUMBAGO ??? Hypothyroidism ??? Obesity ??? Malignant neoplasm of female breast (H) ??? Constipation ? ? HYPERLIPIDEMIA LDL GOAL <130 ??? Osteoarthritis ??? Depression ??? Hypertension Wt Readings from Last 2 Encounters: 06/04/17 189 lb 8 oz (86 kg) 08/08/16 184 lb 8 oz (83.7 kg) BP Readings from Last 3 Encounters: 06/04/17 (!) 166/95 08/08/16 133/78 07/10/16 129/75 Current Outpatient Prescriptions Medication ??? losartan (COZAAR) 25 MG tablet ??? FLUoxetine (PROZAC) 40 MG capsule ??? FLUoxetine HCl, PMDD, 20 MG CAPS ??? predniSONE (DELTASONE) 20 MG tablet ??? LANsoprazole (PREVACID SOLUTAB) 15 MG ODT tab ??? fluticasone (FLONASE) 50 MCG/ACT nasal spray ??? albuterol (PROAIR HFA, PROVENTIL HFA, VENTOLIN HFA) 108 (90 BASE) MCG/ACT inhaler ??? piroxicam (FELDENE) 20 MG capsule ??? [...] Health Maintenance Due Topic Date Due ??? TSH Q1 YEAR 11/23/2008 ??? ADVANCE DIRECTIVE PLANNING Q5 YRS 2009 ??? INFLUENZA VACCINE (SYSTEM ASSIGNED) 04/18/2017 Lab Results Component Value Date PAP NIL 12/05/2010 June 04, 2017 3:20 PM documented in this encounter Plan of Treatment Not on filedocumented as of this encounter Procedures Procedure Name Priority Date/Time Associated Diagnosis Comme nts COMPREHENSIVE Routine 06/04/2017 4:11 Hypertension Results for this METABOLIC PANEL PM CDT procedure ar e in the results section. LIPID PANEL (LAB[facility]Q) Routine 06/04/2017 3:52 Hyperlipidemia LD L Results for this PM CDT goal <130 procedure are i n the results section. 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 OPERATOR) Anatomical Region Laterality Modality Echocardiography Specimen (Source) Anatomical Collection Method Collection Time Re ceived Time Location / / Volume Laterality 07/23/2017 8:52 AM JOURNEYMAN POWERHOUSE OPERATOR Narrative 07/23/2017 1:25 PM JOURNEYMAN POWERHOUSE OPERATOR [id number]^FABRIZIO^VANESSA^[facility] Echocardiography Laboratory [address] [place] [address] Name: VALERI ROJAS : 1955 Study Date: 07/23/2017 08:52 AM Age: 62 yrs Gender: Female Patient [facility] Reason For Study: Heart murmur Ordering Physician: VANESSA MILLS Referring Physician: VANESSA MILLS RENÉ Performed By: Meli Herrera RDCS [...] note might be different from the original. [id number]^FABRIZIO^VANESSA^SHERRY [facility] Echocardiography Laboratory [address] [place] [address] Name: VALERI ROJAS : 1955 Study Date: 07/23/2017 08:52 AM Age: 62 yrs Gender: Female Patient [facility] Reason For Study: Heart murmur Ordering Physician: VANESSA MILLS Referring Physician: VANESSA MILLS RENÉ Performed By: Meli Herrera RDCS [...] approved by: Alessandro Goncalves 07/23/2017 01:25 PM Vanessa Mills MD CV ECHO ORDERABLES Comprehensive metabolic panel (06/04/2017 4:11 PM CDT) P athologist Signature Sodium 140 133 - 144 06/04/2017 [facility] mmol/L 7:30 PM [facility] Potassium 4.1 3.4 - 5.3 06/04/2017 [facility] mmol/L 7:30 PM [facility] Chloride 103 94 - 109 06/04/2017 [facility] mmol/L 7:30 PM [facility] Carbon Dioxide 29 20 - 32 06/04/2017 [facility] mmol/L 7:30 PM [facility] Anion Gap 9 3 - 14 06/04/2017 [facility] mmol/L 7:30 PM [facility] Glucose 86 70 - 99 06/04/2017 [facility] mg/dL 7:30 PM [facility] Urea Nitrogen 18 7 - 30 06/04/2017 [facility] mg/dL 7:30 PM [facility] Creatinine 0.70 0.52 - 06/04/2017 [facility] 1.04 mg/dL 7:30 PM [facility] GFR Estimate 84 >60 06/04/2017 [facility] mL/min/1.7 7:[address] Comment: Non GFR Calc GFR Estimate If >90 >60 mL/min/1.7m2 06/04/2017 7:30 P M [facility] Comment: GFR Calc Calcium 9.4 8.5 - 10.1 mg/dL 06/04/2017 7:30 PM [facility] Bilirubin Total 0.4 0.2 - 1.3 mg/dL 06/04/2017 7:[address] [facility] Albumin 4.2 3.4 - 5.0 g/dL 06/04/2017 7:30 PM [facility] Protein Total 7.8 6.8 - 8.8 g/dL 06/04/2017 7:30 PM [facility] Alkaline Phosphatase 76 40 - 150 U/L 06/04/2017 7:[address] [facility] ALT 26 0 - 50 U/L 06/04/2017 7:[address] [facility] AST 21 0 - 45 U/L 06/04/2017 7:[address] [facility] Specimen Anatomical Collection Method Collection Time Receive d Time (Source) Location / / Volume Laterality Blood specimen VENOUS BLOOD / 06/04/2017 4:11 PM 06/04 4:12 (specimen) Unknown CDT PM CDT Vanessa Mills MD LAB - BLOOD ORDERABLES Performing Organization Address City/State/ZIP Code Phon e Number [facility] [address] [place], [place] [id number] [place] [address] (ABNORMAL) Lipid Panel ([place]) (06/04/2017 3:52 PM CDT) [facility] gist Method Time Signature FASTING SPECIMEN yes [facility] Cholesterol 239.0 (H) 0.0 - [place] 200.0 [facility] HDL Cholesterol 72.0 >50.0 [facility] Triglycerides 89.0 0.0 - [place] 150.0 [facility] Cholesterol/HDL 3.3 0.0 - 5.0 [place] Ratio [facility] LDL Cholesterol 149.0 (H) 0.0 - [place] Direct 129.0 [facility] VLDL-Cholesterol 18.0 7.0 - [place] 32.0 [facility] Specimen Anatomical Collection Method Collection Time Receive d Time (Source) Location / / Volume Laterality Blood specimen VENOUS BLOOD / 06/04/2017 3:52 PM 06/04 3:52 (specimen) Unknown CDT PM CDT Vanessa Mills MD LAB - LAB[facility] Performing Organization Address City/State/ZIP Code Phon e Number [place] [facility] [address] [place] [address] [address] documented in this encounter Visit Diagnoses Diagnosis Annual physical exam - Primary Routine general medical examination at a health care facility Hyperlipidemia LDL goal <130 Other and unspecified hyperlipidemia Hypertension Depression Major depressive disorder, single episod e, unspecified Other type of osteoarthritis, unspecifie d site Heart murmur Undiagnosed cardiac murmurs Heart murmur Undiagnosed cardiac murmurs documented in this encounter Additional Health Concerns Assessment Noted Time PHQ-9 Depression Total Score: 1 06/11/2017 3:05 PM CDT documented as of this encounter Care Teams Brazing Machine Feeder Relationship Specialty Start Date End Date Vanessa Mills MD PCP - General Internal Medicine 07/01/13 [address] [place] [id number] Khadra Thakur MD PCP - Assigned PCP 09/30/16 10/20/[address] [id number] Khadra Thakur MD Assigned PCP 09/30/16 07/10/[address] [id number] documented as of this encounter
--- OUTSIDE RECORDS SUMMARY | 2022-04-16 19:36 | XMS_ITS | Encounter Summary ---
:1955 Author Organization [facility] Address [address] [place] [address]. [place] [address] Care Team Providers Name Role Phone Vanessa Mills MD Primary Care Provider [phone] Reason for Visit Reason Onset Date Comments Forms 07/13/2019 Encounter Details Date Type Department Care Team Description 07/13/2019 Telephone [facility] Vanessa Mills, Forms [facility] Brii rai MD 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 Allyssa LY SERVICE COUNSELOR Telephone Encounter - Annamarie Mcgrath - 07/14/2019 9:01 AM CST [facility] Phone Message May a detailed message be left on voicemail: yes Reason for Call: Other: panfilo is calling again to get pre op faxed to [place] @ [phone] thanks Action Taken: Message routed to: [facility]: [facility] [place] LY SERVICE COUNSELOR Telephone Encounter - Karolina Horta - 07/13/2019 4:12 PM CST [facility] Call Center Phone Message May a detailed message be left on voicemail: yes Reason for Call: Other: Abbot Whitley need pt's pre-op forms. Dr. Hoang - Left shoulder Action Taken: Message routed to: [facility]: [facility] LY SERVICE COUNSELOR documented in this encounter Plan of Treatment Not on filedocumented as of this encounter Visit Diagnoses Not on filedocumented in this encounter Additional Health Concerns Assessment Noted Time PHQ-9 Depression Total Score: 1 06/30/2019 3:03 PM FAMILY SERVICE COUNSELOR documented as of this encounter Care Teams Associate Manager Affiliate Marketing Relationship Specialty Start Date End Date Vanessa Mills MD PCP - General Internal Medicine 07/01/[address] [place] [address] documented as of this encounter
--- OUTSIDE RECORDS SUMMARY | 2022-04-16 19:36 | XMS_ITS | Encounter Summary ---
:1955 Author Organization [place] Address [address] [place] [address] Care Team Providers Name Role Phone Vanessa Mills MD Primary Care Provider [phone] Serum, Khadra [place] MD Unavailable [phone] Serum, Khadra [place] MD Unavailable [phone] Reason for Visit Reason Onset Date Comments Refill Request 04/22/2017 Encounter Details Date Type Department Care Team Description 04/22/2017 Refill [facility] Vanessa Mills, Refill Request [facility] Condominisuzy rai MD 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 Pt has physical slated for mid May 2017 with [facility] BP med, Needs labs , future placed, and visit to follow up with this new med added long ago, Jul 2016 . (Stopped lisinopril due to cough) Has appt for May with [facility] documented in this encounter Plan of Treatment Not on filedocumented as of this encounter Visit Diagnoses Diagnosis Depression Major depressive disorder, single episod e, unspecified Essential hypertension Unspecified essential hypertension documented in this encounter Additional Health Concerns Assessment Noted Time PHQ-9 Depression Total Score: 0 03/27/2016 1:53 PM CDT documented as of this encounter Care Teams Furniture Shampooer Relationship Specialty Start Date End Date Vanessa Mills MD PCP - General Internal Medicine 07/01/[address] [place] [address] Khadra Thakur MD PCP - Assigned PCP 09/30/16 10/20/[address] [address] Khadra Thakur MD Assigned PCP 09/30/16 07/10/[address] [address] documented as of this encounter
--- OUTSIDE RECORDS SUMMARY | 2022-04-16 19:36 | XMS_ITS | Encounter Summary ---
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 documented as of this encounter Plan of Treatment Not on filedocumented as of this encounter Visit Diagnoses Not on filedocumented in this encounter Additional Health Concerns Assessment Noted Time PHQ-9 Depression Total Score: 1 06/30/2019 3:03 PM PEOPLESOFT HCM DEVELOPER documented as of this encounter Care Teams Medical Liaison Relationship Specialty Start Date End Date Vanessa Mills MD PCP - General Internal Medicine 07/01/13 [address] [facility] [place], [place] [id number] documented as of this encounter
--- OUTSIDE RECORDS SUMMARY | 2022-04-16 19:36 | XMS_ITS | Encounter Summary ---
:1955 Author Organization [place] Address [address] [place] [address] Care Team Providers Name Role Phone Vanessa Mills MD Primary Care Provider [phone] Serum, Khadra [place] MD Unavailable [phone] Serum, Khadra [place] MD Unavailable [phone] Reason for Visit Reason Onset Date Comments Refill Request 04/23/2017 Encounter Details Date Type Department Care Team Description 04/23/2017 Refill [facility] Vanessa Mills, Refill Request Phill rai MD 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 documented as of this encounter Plan of Treatment Not on filedocumented as of this encounter Visit Diagnoses Not on filedocumented in this encounter Additional Health Concerns Assessment Noted Time PHQ-9 Depression Total Score: 0 03/27/2016 1:53 PM CDT documented as of this encounter Care Teams Market Development Executive Relationship Specialty Start Date End Date Vanessa Mills MD PCP - General Internal Medicine 07/01/13 [address] [facility] [place] [address] Khadra Thakur MD PCP - Assigned PCP 09/30/16 10/20/18 [facility] [address] [place] [address] Khadra Thakur MD Assigned PCP 09/30/16 07/10/19 [facility] [address] [place] [address] documented as of this encounter
--- OUTSIDE RECORDS SUMMARY | 2022-04-16 19:36 | XMS_ITS | Encounter Summary ---
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
--- OUTSIDE RECORDS SUMMARY | 2022-04-16 19:36 | XMS_ITS | Encounter Summary ---
:1955 Author Organization [facility] Address [address] [place] [address] Care Team Providers Name Role Phone Vanessa Mills MD Primary Care Provider [phone] Serum, Khadra [place] MD Unavailable [phone] Reason for Visit Reason Comments Hypertension blood pressure follow up Encounter Details Date Type Department Care Team Description 11/18/2018 Office Visit [facility] Vanessa Mills Essential hypertension [facility] Condommariama Mendez MD Building [address] [facility] [address] 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 documented as of this encounter Last Filed Vital Signs Vital Sign Reading Time Taken Comments Blood Pressure 126/80 11/18/2018 2:16 PM CDT Pulse 67 11/18/2018 2:16 PM CDT Temperature 36.8 ??C (98.2 ??F) 11/18/2018 2:16 PM CDT Respiratory Rate - - Oxygen Saturation 98% 11/18/2018 2:16 PM CDT Inhaled Oxygen Concentration - - Weight 78.9 kg (174 lb) 11/18/2018 2:16 PM CDT Height 161.7 cm (5' 3.66) 11/18/2018 2:16 PM CDT Body Mass Index 30.19 11/18/2018 2:16 PM CDT documented in this encounter Patient Instructions Patient InstructionsVanessa Mills MD - 11/18/2018 2:20 PM CDT Stop Losartan/HCTZ medication Continue amlodipine documented in this encounter Progress Notes Vanessa Mills MD - 11/18/2018 2:20 PM CDT Valeri Keenan is a 63 year old female here for the following issues: Hypertension Valeri is a 63 yo female here for a blood pressure check. She is taking amlodipine 10 mg, losartan-hydrochlorothiazide 100-25 mg, one half tablet daily. Hydrochlorothiazide 25 mg had been added 11/2017.Her blood pressure machine was checked in clinic at her last visit however it was reading higher than clinic readings and I recommended she have the machine calibrated. She does not check her blood pressure at home. Today she reports she is feeling lightheaded when standing up, she wonders if she still needs hydrochlorothiazide. She is walking 8,000-10,000 steps a day. She has concertedly lost 15 pounds since last year. BP Readings from Last 3 Encounters: 11/18/18 126/80 04/15/18 132/80 11/26/17 145/85 Emergency abdominal surgery, 08/20/18 Valeri had emergency abdominal surgery for closed loop small bowel obstruction 08/20/18. She had 14 inches of her small intestine removed. Today she reports she is doing well and is eating solid food again. Her stools are loose. She notes some right sided pain and is going to see her surgeon. Patient Active Problem List Diagnosis ??? Headache [...] losartan-hydrochlorothiazide (HYZAAR) 100-25 MG per tablet Take 0.5 tablet by mouth daily 45 tablet 3 ??? MULTI-VITAMIN OR TABS 1 tablet daily 0 ??? Turmeric Curcumin 500 MG CAPS Take 500 mg by mouth daily 60 capsule 0 ??? VITAMIN C 500 MG OR TABS 1 tablet po qd ??? VITAMIN D 1000 UNIT OR TABS 1 TABLET DAILY 30 0 ??? celecoxib (CELEBREX) 200 MG capsule Take 1 capsule (200 mg) by mouth daily 90 capsule 3 Allergies Allergen Reactions ??? Ancef [Cefazolin Sodium] Rash ??? Meperidine nausea ??? Morphine Nausea and dizziness EXAM BP 126/80 Pulse 67 Temp 98.2 ??F (36.8 ??C) (Oral) Ht 1.617 m (5' 3.66) Wt 78.9 kg (174 lb) SpO2 98% BMI 30.19 kg/m?? Gen: Alert, pleasant, NAD COR: S1,S2, soft murmur on right sternal boarder Lungs: CTA bilaterally, no rhonchi, wheezes or rales Ext: no peripheral edema, pulses full Assessment: (I10) Essential hypertension Comment: Blood pressure in target range, symptoms of orthostatic hypotension Plan: amLODIPine (NORVASC) 10 MG tablet Stop half tablet of Losartan/HCTZ medication but continue amlodipine 10mg daily. Follow up at preventative visit in January Vanessa Mills MD Internal Medicine/Pediatrics I, Eve Muñoz, am serving as a scribe to document services personally performed by Dr. Murguia, based on data collection and the provider's statements to me. Dr. Mills has reviewed, edited, and approved the above note. documented in this encounter Nursing Notes Mini Casillas MA - 11/18/2018 2:20 PM CDT 63 year old Chief Complaint Patient presents with ??? Hypertension blood pressure follow up Blood pressure 126/80, pulse 67, temperature 98.2 ??F (36.8 ??C), temperature source Oral, height 1.617 m (5' 3.66), weight 78.9 kg (174 lb), SpO2 98 %. Body mass index is 30.19 kg/m??. Patient Active Problem List Diagnosis ??? Headache ??? Female stress incontinence ??? Other specified menopausal and postmenopausal disorder ??? iamLUMBAGO ??? Hypothyroidism ??? Obesity ??? Malignant neoplasm of female breast (H) ??? Constipation ? ? HYPERLIPIDEMIA LDL GOAL <130 ??? Osteoarthritis ??? Depression ??? Hypertension ??? Heart murmur Wt Readings from Last 2 Encounters: 11/18/18 78.9 kg (174 lb) 04/15/18 83.9 kg (185 lb) BP Readings from Last 3 Encounters: 11/18/18 126/80 04/15/18 132/80 11/26/17 145/85 Current Outpatient Medications Medication ??? acetaminophen (TYLENOL [...] per tablet ??? MULTI-VITAMIN OR TABS ??? Turmeric Curcumin [...] Topic Date Due ??? DEPRESSION ACTION PLAN 1972 ??? ZOSTER IMMUNIZATION (1 of 2) 2004 ??? TSH Q1 YEAR 11/23/2008 ??? ADVANCE DIRECTIVE PLANNING Q5 YRS 2009 ??? INFLUENZA VACCINE (1) 04/18/2018 ??? PREVENTIVE CARE VISIT 06/04/2018 ??? DEXA Q3 YR 08/04/2018 ??? PHQ-9 Q6 MONTHS 10/15/2018 Lab Results Component Value Date PAP NIL 12/05/2010 November 18, 2018 2:17 PM documented in this encounter Plan of Treatment Not on filedocumented as of this encounter Visit Diagnoses Diagnosis Essential hypertension Unspecified essential hypertension documented in this encounter Additional Health Concerns Assessment Noted Time PHQ-9 Depression Total Score: 2 04/17/2018 7:18 AM CDT documented as of this encounter Care Teams Health Education Aide Relationship Specialty Start Date End Date Vanessa Mills MD PCP - General Internal Medicine 07/01/13 [address] [facility] [place] [place] [address] Khadra Thakur MD Assigned PCP 09/30/16 07/10/[address] [id number] documented as of this encounter
--- OUTSIDE RECORDS SUMMARY | 2022-04-16 19:36 | XMS_ITS | Encounter Summary ---
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
--- OUTSIDE RECORDS SUMMARY | 2022-04-16 19:36 | XMS_ITS | Encounter Summary ---
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
--- OUTSIDE RECORDS SUMMARY | 2022-04-16 19:36 | XMS_ITS | Encounter Summary ---
:1955 Author Organization [facility] Address [address] [place] [address] Care Team Providers Name Role Phone Vanessa Mills MD Primary Care Provider [phone] Serum, Khadra [place] MD Unavailable [phone] Serum, Khadra [place]ford MD Unavailable [phone] Reason for Visit Reason Onset Date Comments Refill Request 10/27/2017 increase losartan do se Encounter Details Date Type Department Care Team Description 10/27/2017 Refill [facility] Vanessa Mills Refill Request (increase [facility] MD Vanessa losartan dose) [address] [address] [place], [place] [address] [phone] Social History Tobacco Use Types Packs/Day Years Used Date Never Smoker Smokeless Tobacco: Never Used Alcohol Use Standard Drinks/Week Comments Yes 0 (1 standard drink = 0.6 oz pure alcoho l) 1 glass of wine per week 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 Date Recorded 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 documented as of this encounter Miscellaneous Notes Telephone Encounter - Coco Feldman RN - 10/27/2017 9:19 AM CDT Increase losartan to 100 mg daily per [employer] message - Dr Mills documented in this encounter Plan of Treatment Not on filedocumented as of this encounter Visit Diagnoses Diagnosis Essential hypertension - Primary Unspecified essential hypertension documented in this encounter Additional Health Concerns Assessment Noted Time PHQ-9 Depression Total Score: 1 06/11/2017 3:05 PM CDT documented as of this encounter Care Teams Apprentice Embalmer Relationship Specialty Start Date End Date Vanessa Mills MD PCP - General Internal Medicine 07/01/[address] [place] [address] Khadra Thakur MD PCP - Assigned PCP 09/30/16 10/20/[address] [address] Khadra Thakur MD Assigned PCP 09/30/16 07/10/[address] [id number] documented as of this encounter
--- OUTSIDE RECORDS SUMMARY | 2022-04-16 19:37 | XMS_ITS | Encounter Summary ---
:1955 Author Organization [facility] Address [address] [place] [address] Care Team Providers Name Role Phone Vanessa Mills MD Primary Care Provider [phone] Reason for Visit Reason Comments Cough with burning in chest and ra spy throat Encounter Details Date Type Department Care Team Description 08/08/2016 Office Visit [facility] [place] Vanessa Mills Cough (Primary Dx); [facility] MD Vanessa Hypertension Building [address] [place] [address] [address] 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 documented as of this encounter Last Filed Vital Signs Vital Sign Reading Time Taken Comments Blood Pressure 133/78 08/08/2016 3:57 PM SUPERVISOR INSPECTION ROOM Pulse 62 08/08/2016 3:55 PM SUPERVISOR INSPECTION ROOM Temperature 36.7 ??C (98 ??F) 08/08/2016 3:55 PM SUPERVISOR INSPECTION ROOM Respiratory Rate - - Oxygen Saturation 99% 08/08/2016 3:55 PM SUPERVISOR INSPECTION ROOM Inhaled Oxygen Concentration - - Weight 83.7 kg (184 lb 8 oz) 08/08/2016 3:55 PM SUPERVISOR INSPECTION ROOM Height - - Body Mass Index 32.17 07/10/2016 8:26 AM SUPERVISOR INSPECTION ROOM documented in this encounter Patient Instructions Patient InstructionsVanessa Mills MD - 08/08/2016 4:24 PM SUPERVISOR INSPECTION ROOM Stop HCTZ Stop lisinopril/hctz Start Losartan 25mg daily 1/2 tablet daily but label says take one daily Prednisone x 5 days--reduce inflammation Azithromycin would treat atypical pneumonia Albuterol use 2 puffs every 4 hrs Coughing is the signal to use it Contact me if not improving with above, consider chest xray RVISOR INSPECTION ROOM documented in this encounter Progress Notes Vanessa Mills MD - 08/08/2016 4:03 PM CST Valeri Keenan is a 61 year old female here for the following issues: Cough Valeri reports a deep cough, since 2015. No fever no ST. She describes burning in her chest and some heartburn symptoms. She is able to sleep well. Describes a burning sensation in her chest. Denies shortness of breath. She reports cough is triggered whenever she is speaking. She was seen at an urgent care and was using it every 4-6 hr for the past 2 wks. She was also using nasacort nasal sprayand feels that is helping. HTN She is on lisinopril/hctz 10/12.5mg dose daily. Discussed possible side effect from this medication as cough and I made the recommendation to switch medications. Patient Active Problem List Diagnosis ??? Headache ??? Female stress incontinence ??? Other specified menopausal and postmenopausal disorder ??? iamLUMBAGO ??? Hypothyroidism ??? Obesity ??? Malignant neoplasm of female breast (H) ??? Constipation ? ? HYPERLIPIDEMIA LDL GOAL <130 ??? Osteoarthritis ??? Depression ??? Hypertension Current Outpatient Prescriptions Medication Sig Dispense Refill ??? fluticasone (FLONASE) 50 MCG/ACT nasal spray [place] 2 sprays into both nostrils daily 11 ??? albuterol (PROAIR HFA, PROVENTIL HFA, VENTOLIN HFA) 108 (90 BASE) MCG/ACT inhaler Inhale 2 puffsinto the lungs every 4 hours as needed for shortness of breath / dyspnea or wheezing 1 Inhaler 3 ??? FLUoxetine (PROZAC) 40 MG capsule Take one daily with 20mg capsule 30 capsule 11 ??? FLUoxetine HCl, PMDD, 20 MG CAPS Take one with 40mg capsule daily 30 capsule 11 ??? lisinopril-hydrochlorothiazide (PRINZIDE,ZESTORETIC) 10-12.5 MG per tablet Take one daily 30 tablet 11 ??? piroxicam (FELDENE) 20 MG capsule Take [...] ??? Morphine Nausea and dizziness EXAM BP 133/78 mmHg Pulse 62 Temp(Src) 98 ??F (36.7 ??C) Wt 184 lb 8 oz (83.689 kg) SpO2 99% Gen: appears fatigued, coughing HEENT: Conjunctiva nl, TM normal bilaterally, OP clear, mild posterior erythema COR: S1,S2, no murmur Lungs: CTA bilaterally, no rhonchi, wheezes or rales Ext: no peripheral edema, pulses full Assessment: (R05) Cough (primary encounter diagnosis) Comment: suspect bronchitis , reactive airway Plan: predniSONE (DELTASONE) 20 MG tablet, azithromycin (ZITHROMAX) 250 MG tablet, Continue inhaler QID and gave 5day burst of steroids, could consider corticosteroid inhaler, CXR (I10) Hypertension Comment: persistent cough, may be from lisinopril Plan: losartan (COZAAR) 25 MG tablet Change to Cozaar. Monitor blood pressures. Patient Instructions Stop HCTZ Stop lisinopril/hctz Start Losartan 25mg daily 1/2 tablet daily but label says take one daily Vanessa Mills MD Internal Medicine/Pediatrics RVISOR INSPECTION ROOM documented in this encounter Nursing Notes Latasha Quinteros - 08/08/2016 3:56 PM CST 61 year old Chief Complaint Patient presents with ??? Cough with burning in chest and raspy throat Blood pressure 143/84, pulse 62, temperature 98 ??F (36.7 ??C), weight 184 lb 8 oz (83.689 kg), RhD118 %. Body mass index is 32.17 kg/(m^2). Patient Active Problem List Diagnosis ??? Headache ??? Female stress incontinence ??? Other specified menopausal and postmenopausal disorder ??? iamLUMBAGO ??? Hypothyroidism ??? Obesity ??? Malignant neoplasm of female breast (H) ??? Constipation ? ? HYPERLIPIDEMIA LDL GOAL <130 ??? Osteoarthritis ??? Depression ??? Hypertension Wt Readings from Last 2 Encounters: 08/08/16 184 lb 8 oz (83.689 kg) 07/10/16 184 lb 1.6 oz (83.507 kg) BP Readings from Last 3 Encounters: 08/08/16 143/84 07/10/16 129/75 03/25/16 154/85 Current Outpatient Prescriptions Medication ??? fluticasone (FLONASE) 50 MCG/ACT nasal spray ??? albuterol (PROAIR HFA, PROVENTIL HFA, VENTOLIN HFA) 108 (90 BASE) MCG/ACT inhaler ??? FLUoxetine (PROZAC) 40 MG capsule ??? FLUoxetine HCl, PMDD, 20 MG CAPS ??? lisinopril-hydrochlorothiazide (PRINZIDE,ZESTORETIC) 10-12.5 MG per tablet ??? piroxicam (FELDENE) 20 MG capsule [...] ??? Smokeless tobacco: Never Used ??? Alcohol Use: Yes Comment: 1 glass of wine per week Health Maintenance Due Topic Date Due ??? ADVANCE DIRECTIVE PLANNING Q5 YRS (NO INBASKET) 1972 ??? TSH Q1 YEAR (NO INBASKET) 11/23/2008 ??? INFLUENZA VACCINE (SYSTEM ASSIGNED) 04/18/2016 PAP NIL 12/05/2010 August 08, 2016 3:56 PM RVISOR INSPECTION ROOM documented in this encounter Plan of Treatment Not on filedocumented as of this encounter Visit Diagnoses Diagnosis Cough - Primary Hypertension documented in this encounter Additional Health Concerns Assessment Noted Time PHQ-9 Depression Total Score: 0 03/27/2016 1:53 PM CDT documented as of this encounter Care Teams Commissioning Manager Relationship Specialty Start Date End Date Vanessa Mills MD PCP - General Internal Medicine 07/01/13 [address] [facility] [place] [address] documented as of this encounter
--- OUTSIDE RECORDS SUMMARY | 2022-04-16 19:37 | XMS_ITS | Encounter Summary ---
:1955 Author Organization [facility] Address [address] [place] [address] Care Team Providers Name Role Phone Vanessa Mills MD Primary Care Provider Reason for Visit Reason Onset Date Comments Refill Request 07/17/2015 Encounter Details Date Type Department Care Team Description 07/17/2015 Refill [facility] Vanessa Mills, Refill Request [facility] Condominisuzy rai MD 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
--- OUTSIDE RECORDS SUMMARY | 2022-04-16 19:37 | XMS_ITS | Encounter Summary ---
:1955 Author Organization [facility] Address [address] [place] [address] Care Team Providers Name Role Phone Vanessa Mills MD Primary Care Provider [phone] Reason for Visit Reason Onset Date Comments Refill Request 01/19/2016 Encounter Details Date Type Department Care Team Description 01/19/2016 Refill [facility] Vanessa Mills, Refill Request [facility] Condominisuzy rai MD 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 HCTZ Medication is being filled for 1 time refill only due to: Needs updated PHQ9 Prozac documented in this encounter Plan of Treatment Not on filedocumented as of this encounter Visit Diagnoses Diagnosis Essential hypertension with goal blood p ressure less than 140/90 - Primary Adjustment disorder with depressed mood documented in this encounter Care Teams Die Lay Out Worker Relationship Specialty Start Date End Date Vanessa Mills MD PCP - General Internal Medicine 07/01/[address] [place] [address] documented as of this encounter
--- OUTSIDE RECORDS SUMMARY | 2022-04-16 19:37 | XMS_ITS | Encounter Summary ---
:1955 Author Organization [facility] Address [address] [place] [address] Care Team Providers Name Role Phone Vanessa Mills MD Primary Care Provider Encounter Details Date Type Department Care Team Description 02/26/2016 Orders Only [facility] Vanessa Mills Encounter for [facility] MD Vanessa therapeutic drug Building [address] [place] monitoring (Primary [address]) [address] [place], [place] [phone] Social History Tobacco Use Types Packs/Day Years Used Date Never Smoker Smokeless Tobacco: Never Used Alcohol Use Standard Drinks/Week Comments Yes 0 (1 standard drink = 0.6 oz pure alcoho l) 1 glass of wine per week 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 Date Recorded Female 06/29/2019 1:[address] documented as of this encounter Plan of Treatment Not on filedocumented as of this encounter Visit Diagnoses Diagnosis Encounter for therapeutic drug monitorin g - Primary documented in this encounter Care Teams Rent And Miscellaneous Remittance Clerk Relationship Specialty Start Date End Date Vanessa Mills MD PCP - General Internal Medicine 07/01/[address] [place] [address] documented as of this encounter
--- OUTSIDE RECORDS SUMMARY | 2022-04-16 19:37 | XMS_ITS | Encounter Summary ---
:1955 Author Organization [facility] Address [address] [place] [address]. [place] [address] Care Team Providers Name Role Phone Vanessa Mills MD Primary Care Provider [phone] Reason for Visit Reason Comments Cough Encounter Details Date Type Department Care Team Description 07/10/2016 Office Visit [facility] Alexander Linda MD Post-nasal drip (Primary Dx); [place] Acute bronchitis, unspecified organism [address] [place] [phone] [address] [place] [address] (Wo rk) Social History Tobacco Use Types Packs/Day Years Used Date Never Smoker Smokeless Tobacco: Never Used Alcohol Use Standard Drinks/Week Comments Yes 0 (1 standard drink = 0.6 oz pure alcoho l) 1 glass of wine per week 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 Date Recorded 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 documented as of 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 encounter Last Filed Vital Signs Vital Sign Reading Time Taken Comments Blood Pressure 129/75 07/10/2016 8:26 AM LATHE MACHINE OPERATOR Pulse 62 07/10/2016 8:26 AM LATHE MACHINE OPERATOR Temperature 36.5 ??C (97.7 ??F) 07/10/2016 8:26 AM LATHE MACHINE OPERATOR Respiratory Rate - - Oxygen Saturation 97% 07/10/2016 8:26 AM LATHE MACHINE OPERATOR Inhaled Oxygen Concentration - - Weight 83.5 kg (184 lb 1.6 oz) 07/10/2016 8:26 AM LATHE MACHINE OPERATOR Height 161.3 cm (5' 3.5) 07/10/2016 8:26 AM LATHE MACHINE OPERATOR Body Mass Index 32.1 07/10/2016 8:26 AM LATHE MACHINE OPERATOR documented in this encounter Patient Instructions Patient InstructionsAlexander Linda MD - 07/10/2016 8:45 AM CST You likely have post-nasal drip 1) Flonase: 2 puffs twice daily for 1 week. Then 1 puff daily until symptoms are gone 2) Decongestants with phenylephrine 3) Albuterol 2 puffs every four hours as needed: Schedule over the next 3-4 days 4) If not better in 2 weeks, follow up Thank you for involving us in your care E MACHINE OPERATOR documented in this encounter Progress Notes Alexander Linda MD - 07/10/2016 7:33 AM CST SUBJECTIVE: Valeri Keenan is a 61 year old female who presents to clinic today for the following health issues: Cough ?? Duration: 6 weeks but worsening ?? Description (location/character/radiation): deep cough and more frequent past few days, worse at night ?? Intensity: moderate ?? Accompanying signs and symptoms: chest congestion ?? History (similar episodes/previous evaluation): None ?? Precipitating or alleviating factors: None ?? Therapies tried and outcome: cough syrup, Cherrytussin Valeri Keenan is a 61 year old, never smoker, who presents with 6 weeks of chronic nagging cough. She noted the cough started after a little bit of congestion and has lingered over the last month annabelle half. This last week, she has had increased drainage, which has exacerbated her coughing. Cough wakes her up at night & she has trouble sleeping. She feels like she has chest congestion but is unable to bring up much phlegm. No fevers, chills, increased work of breathing. Some shortness of breath when climbing stairs as she begins to cough. Was previously prescribed inhalers in the setting of colds/cough but never took them. Has reflux but has been maintained on ranitidine without any changes.No history of asthma. Using an OTC nasal decongestant and cough syrup. Problem list and histories reviewed & adjusted, as indicated. Additional history: as documented Problem list, Medication list, Allergies, and Medical/Social/Surgical histories [facility] andupdated as appropriate. ROS: Constitutional, HEENT, cardiovascular, pulmonary, gi and gu systems are negative, except as otherwise noted. OBJECTIVE: BP 129/75 mmHg Pulse 62 Temp(Src) 97.7 ??F (36.5 ??C) (Tympanic) Ht 5' 3.5 (1.613 m) Wt 184lb 1.6 oz (83.507 kg) BMI 32.10 kg/m2 SpO2 97% Body mass index is 32.1 kg/(m^2). GENERAL: healthy, alert and no distress EYES: Eyes grossly normal to inspection, PERRL and conjunctivae and sclerae normal HENT: ear canals and TM's normal, nose with rhinorrhea and Posterior oropharynx with evidence of continued drainage NECK: no adenopathy, no asymmetry, masses, or scars and thyroid normal to palpation RESP: Decreased air movement bilaterally at bases. No wheezing or crackles CV: regular rate and rhythm, normal S1 S2, no S3 or S4, no murmurs ABDOMEN: soft, nontender, non distended MS: no gross musculoskeletal defects noted, no edema SKIN: no suspicious lesions or rashes NEURO: Normal strength and tone, mentation intact and speech normal Diagnostic Test Results: none ASSESSMENT/PLAN: Valeri Keenan is a 61 year old who presents with chronic cough. We discussed common etiologies of chronic cough including asthma, post-nasal drip & GERD. Patient without increase in reflux & no history of asthma. Likely etiology of post-nasal drip triggering chronic cough & acute bronchitis episode. We discussed targeting her post nasal drip with phenylephrine & Flonase, and helpingher breathing with albuterol. It is likely she isn't wheezing on exam due to decreased air movement.If she does not improve in the next 1-2 weeks, she will need a CXR & consideration for abx &steroids. 1. Post-nasal drip - fluticasone (FLONASE) 50 MCG/ACT nasal spray; [place] 2 sprays into both nostrils daily Dispense: 1 Bottle; Refill: 11 - Phenylephrine containing OTC products - Supportive cares 2. Acute bronchitis, unspecified organism - albuterol (PROAIR HFA, PROVENTIL HFA, VENTOLIN HFA) 108 (90 BASE) MCG/ACT inhaler; Inhale 2 puffs into the lungs every 4 hours as needed for shortness of breath / dyspnea or wheezing Dispense: 1 Inhaler; Refill: 3 Follow up in 1-2 weeks if not improving Patient declined flu shot. 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 Alexander Linda MD [facility] Declined flu shot I discussed this case in depth with Dr. Linda and agree with the monahan components of the history, assessment and plan. Khadra Thakur MD Internal Medicine/Pediatrics E MACHINE OPERATOR documented in this encounter Nursing Notes Mitra Irving LPN - 07/10/2016 8:28 AM CST Chief Complaint Patient presents with ??? Cough Initial BP 129/75 mmHg Pulse 62 Temp(Src) 97.7 ??F (36.5 ??C) (Tympanic) Ht 5' 3.5 (1.613 m) Wt 184 lb 1.6 oz (83.507 kg) BMI 32.10 kg/m2 SpO2 97% Estimated body mass index is 32.1 kg/(m^2) as calculated from the following: Height as of this encounter: 5' 3.5 (1.613 m). Weight as of this encounter: 184 lb 1.6 oz (83.507 kg). BP completed using cuff size: cinda Irving LPN E MACHINE OPERATOR documented in this encounter Plan of Treatment Not on filedocumented as of this encounter Visit Diagnoses Diagnosis Post-nasal drip - Primary Postnasal drip Acute bronchitis, unspecified organism documented in this encounter Additional Health Concerns Assessment Noted Time PHQ-9 Depression Total Score: 0 03/27/2016 1:53 PM CDT documented as of this encounter Care Teams Electronic Parts Designer Relationship Specialty Start Date End Date Vanessa Mills MD PCP - General Internal Medicine 07/01/[address] [place] [address] documented as of this encounter
--- OUTSIDE RECORDS SUMMARY | 2022-04-16 19:37 | XMS_ITS | Encounter Summary ---
:1955 Author Organization [facility] Address [address] [place] [address]. [place] [address] Care Team Providers Name Role Phone Vanessa Mills MD Primary Care Provider [phone] Encounter Details Date Type Department Care Team Description 04/05/2015 Orders Only [facility] Neutropenia (H) [facility] 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 documented in this encounter Results (ABNORMAL) CBC with platelets differential (04/05/2015 11:32 AM CDT) [facility] Method Time Signature WBC 3.7 (L) 4.0 - [facility] 10e9/L [facility] RBC Count 4.47 3.8 - 5.2 [facility] 10e12/L [facility] Hemoglobin 13.1 11.7 - [facility] 15.7 g/dL [facility] Hematocrit 39.7 35.0 - [facility] 47.0 % [facility] MCV 89 78 - 100 [facility] fl [facility] MCH 29.3 26.5 - [place] [facility] 33.0 pg [facility] MCHC 33.0 31.5 - [place] [facility] 36.5 g/dL [facility] RDW 14.2 10.0 - [facility] 15.0 % [facility] Platelet Count 242 150 - 450 [facility] 10e9/L [facility] Diff Method Automated [facility] % Neutrophils 51.2 % [facility] % Lymphocytes 32.6 % [facility] % Monocytes 13.2 % [facility] % Eosinophils 1.9 % [facility] % Basophils 0.8 % [facility] % Immature 0.3 % [facility] Granulocytes [facility] Absolute 1.9 1.6 - 8.3 [facility] Neutrophil 10e9/L [facility] Absolute 1.2 0.8 - 5.3 [facility] Lymphocytes 10e9/L [facility] Absolute 0.5 0.0 - 1.3 [facility] Monocytes 10e9/L [facility] Absolute 0.1 0.0 - 0.7 [facility] Eosinophils 10e9/L [facility] Absolute 0.0 0.0 - 0.2 [facility] Basophils 10e9/L [facility] Abs Immature 0.0 0 - 0.4 [place] [facility] Granulocytes 10e9/L [facility] Specimen Anatomical Collection Method Collection Time Receive d Time (Source) Location / / Volume Laterality Blood specimen VENOUS BLOOD / 04/05/2015 11:32 015 (specimen) Unknown AM CDT 11:33 AM CDT Vanessa Mills MD LAB - BLOOD ORDERABLES Performing Organization Address City/State/ZIP Code Phon e Number [facility] [address] [place], [place] [phone] [place] [address] documented in this encounter Visit Diagnoses Diagnosis Neutropenia (H) Neutropenia, unspecified documented in this encounter Care Teams Laborer [place] Relationship Specialty Start Date End Date Vanessa Mills MD PCP - General Internal Medicine 07/01/13 [address] [facility] [place] [address] documented as of this encounter
--- OUTSIDE RECORDS SUMMARY | 2022-04-16 19:37 | XMS_ITS | Encounter Summary ---
:1955 Author Organization [place] Address [address] [place] [address]. [place] [address] Care Team Providers Name Role Phone Getachew Mills MD Primary Care Provider [phone] Reason for Visit (Routine) - Closed Specialty Diagnoses / Procedures Referred By Contact Refer red To Contact Cardiology Diagnoses per dr Getachew Mills, 61 year old female with new heart murmur, RUSB, sent conf ltr w/ map Rh Echo Rscc Procedures ECH COMPLETE [address] [facility] [address] [place], [place] [address] Phone: Fax: Referral ID Status Reason Start Date Expiration Date Visits Requ ested Visits Authorized [id number] Closed 04/05/2016 04/05/2017 1 1 Encounter Details Date Type Department Care Team Description 04/08/2016 Hospital Encounter [facility] Getachew Mills art murmur [facility] [address] [place] [address] [place], [place] [address] [address] [place], [place] [phone] (Wo rk) [address] [phone] Social History Tobacco Use Types Packs/Day Years Used Date Never Smoker Smokeless Tobacco: Never Used Alcohol Use Standard Drinks/Week Comments Yes 0 (1 standard drink = 0.6 oz pure alcoho l) 1 glass of wine per week 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 Date Recorded 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 documented as of this encounter Medications at Time of Discharge Medication Sig Dispensed Refills Start Date End Date acetaminophen (TYLENOL) Take 2 tablets by 0 500 MG tablet mouth daily LEVOTHYROXINE SODIUM 175 Take 137 mcg by 30 0 2008 MCG OR TABS mouth CALCIUM 600 + D 600-200 1 tablet daily 3 MONTHS 1 09/24/19 08 01/13/2019 MG-UNIT OR TABS FLUoxetine (PROZAC) 40 MG Take one daily with 30 capsule 11 0 03/25/2016 04/22/2017 capsuleIndications: Major 20mg capsule depression, chronic FLUoxetine HCl, PMDD, 20 Take one with 40mg 30 capsule 11 03/201604/22/2017 MG CAPSIndications: Major capsule daily depression, chronic lisinopril-hydrochlorothi Take one daily 30 tablet 11 201504/23/2017 azide (PRINZIDE,ZESTORETIC) 10-12.5 MG per tabletIndications: Essential hypertension with goal blood pressure less than 140/90 MULTI-VITAMIN OR TABS 1 tablet daily 0 10/22/2005 01/13/2019 piroxicam (FELDENE) 20 MG Take 1 capsule (20 90 capsule 0 06/04/2017 capsuleIndications: Other mg) by mouth daily type of osteoarthritis, unspecified site Turmeric Curcumin 500 MG Take 500 mg by 60 capsule 0 015 06/30/2019 CAPS mouth daily VITAMIN C 500 MG OR TABS 1 tablet po qd 0 01/13/2019 VITAMIN D 1000 UNIT OR 1 TABLET DAILY 30 0 8 01/13/2019 TABS documented as of this encounter Plan of Treatment Not on filedocumented as of this encounter Procedures Procedure Name Priority Date/Time Associated Diagnosis Comme nts ECHO COMPLETE Routine 04/08/2016 11:10 AM Heart murmur Results for this CDT procedure are i n the results section . documented in this encounter Results Echocardiogram (04/08/2016 11:10 AM CDT) Anatomical Region Laterality Modality Echocardiography Specimen (Source) Anatomical Collection Method Collection Time Re ceived Time Location / / Volume Laterality 04/08/2016 9:48 AM CDT Narrative 04/08/2016 4:31 PM CDT Interpretation Summary [facility] Echocardiography [facility] [address] [place] [address] Name: VALERI ROJAS : 1955 Study Date: 04/08/2016 09:48 AM Age: 61 yrs Gender: Female Patient Location: [facility] – [place] Reason For Study: Cardiac murmur Ordering Physician: GETACHEW MILLS Referring Physician: GETACHEW MILLS RENÉ Performed By: Meli Herrera RDCS BSA: 1.9 m2 Height: 65 in Weight: 185 lb HR: 57 BP: 112/68 mmHg Procedure Complete Echo Adult. Interpretation Summary Left ventricular systolic function is no rmal. The visual ejection fraction is estimated at 55-60%. There is borderline concentric left ventricular hypertrophy. No hemodynamically significant valvular aortic stenosis noted and no aortic regurgitation is present. There is trace mitral regurgitation. Borderline aortic root dilatation above the ST ridge noted and the aorta is 3.7 cm. There is no comparison study available. Left Ventricle The left ventricle is normal in size. Th ere is borderline concentric left ventricular hypertrophy. Left ventricula r systolic function is normal. The visual ejection fraction is estimated at 55-60%. The transmitral spectral Doppler flow pattern is suggestive of im paired LV relaxation. E by E prime ratio is between 8 and 15, which is inde terminate for assessment of left ventricular filling pressures. No region al wall motion abnormalities noted. Right Ventricle Normal right ventricle structure and siz e. Atria Normal left atrial size. Chiari network (normal variant) is noted. The right atrium is borderline dilated. There is n o atrial shunt seen. Mitral Valve There is trace mitral regurgitation. Tricuspid Valve There is trace tricuspid regurgitation. The right ventricular systolic pressure is approximated at 21mmHg plus the right atrial pressure. Normal IVC (1.5-2.5cm) with >50% respiratory collap se; right atrial pressure is estimated at 5-10mmHg. Aortic Valve No aortic regurgitation is present. No h emodynamically significant valvular aortic stenosis. Pulmonic Valve There is no pulmonic valvular stenosis. Vessels Borderline aortic root dilatation. The a greg is 37 cm. Pericardium The pericardium appears normal. Rhythm The rhythm was normal sinus. MMode/2D Measurements & Calculations IVSd: 1.2 cm LVIDd: 4.3 cm LVIDs: 2.7 cm LVPWd: 1.0 cm IVC diam: 1.9 cm FS: 38.2 % EDV(Teich): 82.8 ml ESV(Teich): 25.8 ml LV mass(C)d: 162.7 grams Ao root diam: 3.2 cm LA dimension: 3.7 cm asc Aorta Diam: 3.7 cm LA/Ao: 1.1 LA Volume (BP): 63.0 ml LA Volume Index (BP): 32.9 ml/m2 Doppler Measurements & Calculations MV E max matthew: 66.3 cm/sec MV A max matthew: 76.4 cm/sec MV E/A: 0.87 MV dec slope: 227.1 cm/sec2 MV dec time: 0.29 sec TR max matthew: 229.4 cm/sec TR max P.0 mmHg E/E': 9.3 Peak E' Matthew: 7.1 cm/sec Report approved by: Alessandro Amor 0 04/08/2016 04:31 PM Procedure Note Beata Zambrano MD - 04/08/2016Formatti ng of this note might be different from the original. Interpretation Summary [facility] Echocardi[facility] [address] [place] [address] Name: VALERI ROJAS : 1955 Study Date: 04/08/2016 09:48 AM Age: 61 yrs Gender: Female Patient Location: [facility] – [place] Reason For Study: Cardiac murmur Ordering Physician: GETACHEW MILLS Referring Physician: GETACHEW MILLS RENÉ Performed By: Meli Herrera RDCS BSA: 1.9 m2 Height: 65 in Weight: 185 lb HR: 57 BP: 112/68 mmHg Procedure Complete Echo Adult. Interpretation Summary Left ventricular systolic function is no rmal. The visual ejection fraction is estimated at 55-60%. There is borderline concentric left ventricular hypertrophy. No hemodynamically significant valvular aortic stenosis noted and no aortic regurgitation is present. There is trace mitral regurgitation. Borderline aortic root dilatation above the ST ridge noted and the aorta is 3.7 cm. There is no comparison study available. Left Ventricle The left ventricle is normal in size. Th ere is borderline concentric left ventricular hypertrophy. Left ventricula r systolic function is normal. The visual ejection fraction is estimated at 55-60%. The transmitral spectral Doppler flow pattern is suggestive of im paired LV relaxation. E by E prime ratio is between 8 and 15, which is inde terminate for assessment of left ventricular filling pressures. No region al wall motion abnormalities noted. Right Ventricle Normal right ventricle structure and siz e. Atria Normal left atrial size. Chiari network (normal variant) is noted. The right atrium is borderline dilated. There is n o atrial shunt seen. Mitral Valve There is trace mitral regurgitation. Tricuspid Valve There is trace tricuspid regurgitation. The right ventricular systolic pressure is approximated at 21mmHg plus the right atrial pressure. Normal IVC (1.5-2.5cm) with >50% respiratory collap se; right atrial pressure is estimated at 5-10mmHg. Aortic Valve No aortic regurgitation is present. No h emodynamically significant valvular aortic stenosis. Pulmonic Valve There is no pulmonic valvular stenosis. Vessels Borderline aortic root dilatation. The a greg is 37 cm. Pericardium The pericardium appears normal. Rhythm The rhythm was normal sinus. MMode/2D Measurements & Calculations IVSd: 1.2 cm LVIDd: 4.3 cm LVIDs: 2.7 cm LVPWd: 1.0 cm IVC diam: 1.9 cm FS: 38.2 % EDV(Teich): 82.8 ml ESV(Teich): 25.8 ml LV mass(C)d: 162.7 grams Ao root diam: 3.2 cm LA dimension: 3.7 cm asc Aorta Diam: 3.7 cm LA/Ao: 1.1 LA Volume (BP): 63.0 ml LA Volume Index (BP): 32.9 ml/m2 Doppler Measurements & Calculations MV E max matthew: 66.3 cm/sec MV A max matthew: 76.4 cm/sec MV E/A: 0.87 MV dec slope: 227.1 cm/sec2 MV dec time: 0.29 sec TR max matthew: 229.4 cm/sec TR max P.0 mmHg E/E': 9.3 Peak E' Matthew: 7.1 cm/sec Report approved by: Beata Zambrano MDon 0 04/08/2016 04:31 PM Getachew Mills MD CV ECHO ORDERABLES documented in this encounter Visit Diagnoses Diagnosis Heart murmur Undiagnosed cardiac murmurs documented in this encounter Additional Health Concerns Assessment Noted Time PHQ-9 Depression Total Score: 0 03/27/2016 1:53 PM CDT documented as of this encounter Care Teams Business Banking Representative Relationship Specialty Start Date End Date Getachew Mills MD PCP - General Internal Medicine 07/01/13 [address] [place] [address] documented as of this encounter
--- OUTSIDE RECORDS SUMMARY | 2022-04-16 19:37 | XMS_ITS | Encounter Summary ---
:1955 Author Organization [facility] Address [address] [place] [address] Care Team Providers Name Role Phone Vanessa Mills MD Primary Care Provider [phone] Reason for Referral Rehab Therapy Physical Therapy - Closed Specialty Diagnoses / Procedures Referred By Contact Refer red To Contact Diagnoses Right leg pain Vanessa Mills MD [address] [place] [phone] Referral ID Status Reason Start Date Expiration Date Visits Requ ested Visits Authorized [id number] Closed 02/27/2015 02/27/2016 1 1 Encounter Details Date Type Department Care Team Description 02/27/2015 Orders Only [facility] Vanessa Mills Right leg pain 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
--- OUTSIDE RECORDS SUMMARY | 2022-04-16 19:37 | XMS_ITS | Encounter Summary ---
:1955 Author Organization [facility] Address [address] [place] [id number] Care Team Providers Name Role Phone Getachew Mills MD Primary Care Provider [phone] Reason for Visit Reason Comments Physical Encounter Details Date Type Department Care Team Description 01/03/2015 Office Visit [facility] Getachew Mills Routine general medical exam ination at a health care facility (Primary Dx); Phill Mendez MD Hyperlipidemia LDL goal <130; Building [address] [place] Screening for osteoporosis; 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 She is fasting. She is up to date on eye exams anddental visits. Wears seat belt-yes. Bike helmet- na. Concerns today: Routine general medical examination at a health care facility Valeri is here for general check up. Her health is stable. She brings in biometric forms for her employer. She needs a glucose, A1c, lipid panel and cotinine level. She has never been a smoker. She tells me her diet is healthy. Over the past few months she has started a walking program. She has a history of arthritis and had to have foot surgery so this limited her activity for a while. She s/p TAHBSO and bilateral mastectomy. She is up to date on colonoscopy. She tells me she had a DEXA scan in the past couple of years. Hyperlipidemia <130 No current medication. Healthy diet. Screening for osteoporosis Had DEXA at human factors ergonomist office in the last year. Osteopenia. Walking 4x per week, 30- 40 min each time. Grandmother with osteoporosis. Had previous foot problems and it took a year to get back into exercising. Takes calcium supplement once a day, + 1000 IU D daily. Left ear plugging Spring and fall she notes popping and pressure in her ear. She wears earplugs at night, as spouse snores. No pain. She is mildly congested. Took some sudafed. Sometimes has ringing in her ears. Lightheaded. Lightheaded at times, it comes without warning or obvious trigger. She has felt lightheaded while sitting at a desk or with climbing stairs. At that time she almost fainted. She never has lightheadedness with general exercise. Denies heart palpitations, no chest pain. Arthritis On Piroxicam and plaquenil for arthritis and things are stable, she is left hand dominant. She has arthritic changes in her hands. No current red, hot or swollen joints. She sees eye doctor regularly due to plaquenil use. Health Maintenance Topic Date Due ??? ADVANCE DIRECTIVE PLANNING Q5 YRS (NO INBASKET) 1972 ??? TSH Q1 YEAR (NO INBASKET) 11/23/2008 ??? INFLUENZA VACCINE (SYSTEM ASSIGNED) 04/18/2015 ??? DEXA Q3 YR 01/14/2016 ??? LIPID MONITORING Q5 YEARS (NO INBASKET) 01/13/2019 ??? COLONOSCOPY Q10 YR INBASKET MESSAGE 04/16/2023 ??? TETANUS Q10 YR 01/14/2024 Patient Active Problem List Diagnosis ??? HEADACHE ??? OSTEOARTHROS NOS-OTHER SITE ??? FEMALE STRESS INCONTINENCE ??? MENOPAUSAL DISORDER NEC ??? iamLUMBAGO ??? HYPOTHYROIDISM NOS ??? OBESITY NOS ??? DUCTAL CARCINOMA IN SITU ??? Constipation ? ? HYPERLIPIDEMIA LDL GOAL <130 ??? Hypertension ??? Major depression, chronic Past Surgical History Procedure Laterality Date ??? C appendectomy ??? Foot surgery RIGHT 2ND TOE SURGERY ??? C vag hyst,rmv tube/ovary 08/2002 Fibroids, on HRT x 10 months, then D/C ??? C mastectomy, simple, complete 03/2007 right with carcinoma, left prophylactic ??? C thyroidectomy 07/2007 total thyroidectomy ??? Colonoscopy 04/16/2013 due 2022 ??? Carpal tunnel release rt/lt ??? Foot surgery 2013 fusion of right foot Family History Problem Relation Age of Onset ??? C.A.D. Father [place] 53, at 58 ??? Neurological Father Parkinsons ??? Neurological Mother headaches ??? Arthritis Mother DJD ??? Hypertension Mother ??? Hypertension Brother Two brothers with HTN ??? Stroke Maternal Grandmother ??? Circulatory Paternal Grandmother Brain Aneurysm ??? Cancer - Breast No family hx of ??? Cancer - Colorectal No family hx of ??? Osteoporosis Mother ??? Osteoporosis Paternal Grandmother ??? Cancer Other niece wtih squamous cell ca of tongue, age 42, nonsmoker/no Etoh ??? Cancer - Prostate Brother ??? Cancer Mother 95 ?primary vs metastatic ??? 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 no STD hx? no cycle length: na dysmenorrhea/PMS: na Vasomotor sx: mild Contraception: na G 3 P 2 A 1 Self Breast exam: mastectomy Current Outpatient Prescriptions Medication Sig Dispense Refill ??? acetaminophen (TYLENOL EX ST ARTHRITIS PAIN) 500 MG tablet Take 2 tablets by mouth daily ??? albuterol (VENTOLIN HFA) 108 (90 BASE) MCG/ACT inhaler Inhale 2 puffs into the lungs every 4 hours as needed for shortness of breath / dyspnea or wheezing 1 Inhaler 2 ??? guaiFENesin-codeine (ROBITUSSIN AC) 100-10 MG/5ML SOLN Take 10 mLs by mouth every 4 hours as needed for cough 420 mL 0 ??? hydrochlorothiazide (HYDRODIURIL) 25 MG tablet Take 1 tablet (25 mg) by mouth daily 30 tablet 11 ??? FLUoxetine (PROZAC) 40 MG capsule Take 1 capsule (40 mg) by mouth daily 30 capsule 11 ??? nystatin (MYCOSTATIN) ointment Apply topically 2 times daily 30 g 2 ??? LEVOTHYROXINE SODIUM 175 MCG OR TABS 1 TABLET DAILY 30 0 ??? PLAQUENIL 200 MG OR TABS one tablet twice a day 60 prn ??? VITAMIN D 1000 UNIT OR TABS 1 TABLET DAILY 30 0 ??? CALCIUM 600 + D 600-200 MG-UNIT OR TABS 1 tablet daily 3 MONTHS 1 YEAR ??? UNKNOWN MED DOSAGE Glucosamine Chondroitin 1500/1200 2 tabs po qd ??? PIROXICAM 20 MG OR CAPS 1 CAPSULE DAILY 30 0 ??? MULTI-VITAMIN OR TABS 1 tablet daily 0 ??? VITAMIN C 500 MG OR TABS 1 tablet po qd Allergies Allergen Reactions ??? Ancef [Cefazolin Sodium] Rash ??? Meperidine nausea ??? Morphine Nausea and dizziness ROS CONSTITUTIONAL:NEGATIVE for fever, chills 4 pound weight loss since last year INTEGUMENTARY/SKIN: NEGATIVE for worrisome rashes, moles or lesions EYES: NEGATIVE for vision changes or irritation, wears glasses ENT/MOUTH: NEGATIVE for ear, mouth and throat problems, left ear plugging, decreased hearing. RESP:NEGATIVE for significant cough or SOB, mild tickly cough uses inhaler prn BREAST: bilateral mastectomies with reconstruction, no longer needs mammograms CV: NEGATIVE for chest pain, palpitations, ALLAN, orthopnea, PND or peripheral edema. Lightheadedness as above GI: NEGATIVE for nausea, abdominal pain, , or change in bowel habits. Lots of burping, takes Ranitidine once a day which helps, no dysphagia :NEGATIVE for frequency, dysuria, or hematuria MUSCULOSKELETAL:hx of arthritis as above, no acute inflamed joints NEURO: NEGATIVE for weakness, or paresthesias,. Occasional headaches ENDOCRINE: NEGATIVE for polyuria/dipsia, temperature intolerance, skin/hair changes, hx of thyroid disease, follows with labels molder for management. S/p total thyroidectomy HEME/ALLERGY/IMMUNE: NEGATIVE for bleeding problems PSYCHIATRIC: NEGATIVE for changes in mood or affect, doing well on Prozac PHQ9 score = 1 ARELIS 7 score = 1 EXAM BP 106/72 Pulse 57 Temp(Src) 98.1 ??F (36.7 ??C) (Oral) Ht 5' 4 (162.6 cm) Wt 183 lb 0.6 oz(83.026 kg) BMI 31.40 kg/m2 SpO2 100% GENERAL APPEARANCE: Alert, pleasant, NAD EYES: PERRL, EOMI, conjunctiva clear HENT: left ear canal with cerumen impaction. Nose and mouth without lesions NECK: no adenopathy, thyroid absent, well healed incision RESP: lungs clear to auscultation bilaterally, BREAST: not examined, bilateral mastectomies with reconstruction No axillary masses or adenopathy CV: regular rate and rhythm, normal S1 S2, no murmur, no carotid bruits ABDOMEN: soft, nontender, without HSM or masses. Bowel sounds normal : Not done RECTAL EXAM: Not done MS: thickening of MCP joints on both hands, no redness or warmth SKIN: no suspicious lesions or rashes NEURO: Normal strength and tone, sensory exam grossly normal, DTR normoreflexive in upper and lower extremities PSYCH: mentation appears normal. and affect normal/bright. EXT: no peripheral edema, pedal pulses palpable Assessment: (V70.0) Routine general medical examination at a health care facility (primary encounter diagnosis) Comment: 59 yo woman in stable health Plan: CBC with platelets differential, Lipid Panel ([place]), Comprehensive Metabolic Panel ([place]), Hemoglobin A1c ([place]), Nicotine and Cotinine Serum Anticipatory guidance given today regarding diet, exercise and calcium intake, safety. Will obtain old DEXA from data processing systems project planner office, otherwise HCM up to date. Only one Hep B vaccine listed. She recalls finishing the series of 3, she will check records. (272.4) Hyperlipidemia LDL goal <130 Comment: fasting today Plan: Lipid Panel ([place]) (V82.81) Screening for osteoporosis Comment: previous DEXA done with data processing systems project planner Plan: obtain copy of report, continue with calcium and D, continue with weight bearing exercise (401.9) Essential hypertension Comment: good control Plan: hydrochlorothiazide (HYDRODIURIL) 25 MG tablet Refilled med (309.0) Adjustment disorder with depressed mood Comment: doing well on fluoxetine Plan: FLUoxetine (PROZAC) 40 MG capsule Refilled x 1 yr (380.4) Impacted cerumen of left ear Comment: left ear occluded Plan: REMOVE IMPACTED CERUMEN Ear wash to left ear relieved symptoms Getachew Mills MD Internal Medicine/Pediatrics documented in this encounter Nursing Notes Gabi Carmona, [facility] - 01/03/2015 8:04 AM CDT 59 year old Chief Complaint Patient presents with ??? Physical Blood pressure 106/72, pulse 57, temperature 98.1 ??F (36.7 ??C), temperature source Oral, height 5'4 (162.6 cm), weight 183 lb 0.6 oz (83.026 kg), SpO2 100 %. Body mass index is 31.4 kg/(m^2). Patient Active Problem List Diagnosis ??? HEADACHE ??? OSTEOARTHROS NOS-OTHER SITE ??? FEMALE STRESS INCONTINENCE ??? MENOPAUSAL DISORDER NEC ??? iamLUMBAGO ??? HYPOTHYROIDISM NOS ??? OBESITY NOS ??? DUCTAL CARCINOMA IN SITU ??? Constipation ? ? HYPERLIPIDEMIA LDL GOAL <130 ??? Hypertension ??? Major depression, chronic Wt Readings from Last 2 Encounters: 01/03/15 183 lb 0.6 oz (83.026 kg) 01/13/14 187 lb (84.823 kg) BP Readings from Last 3 Encounters: 01/03/15 106/72 11/17/14 137/83 01/13/14 138/85 Current Outpatient Prescriptions Medication ??? acetaminophen (TYLENOL EX ST ARTHRITIS PAIN) 500 MG tablet ??? hydrochlorothiazide (HYDRODIURIL) 25 MG tablet ??? FLUoxetine (PROZAC) 40 MG capsule ??? LEVOTHYROXINE SODIUM 175 MCG OR TABS ??? PLAQUENIL 200 MG OR TABS ??? VITAMIN D 1000 UNIT OR TABS ??? CALCIUM 600 + D 600-200 MG-UNIT OR TABS ??? UNKNOWN MED DOSAGE ??? PIROXICAM 20 MG OR CAPS ??? MULTI-VITAMIN OR TABS ??? VITAMIN C 500 MG OR TABS ??? albuterol (VENTOLIN HFA) 108 (90 BASE) MCG/ACT inhaler ??? guaiFENesin-codeine (ROBITUSSIN AC) 100-10 MG/5ML SOLN ??? nystatin (MYCOSTATIN) ointment No current facility-administered medications for this visit. History Substance Use Topics ??? Smoking status: Never Smoker ??? Smokeless tobacco: Never Used ??? Alcohol Use: Yes Comment: 1 glass of wine per week Health Maintenance Due Topic Date Due ??? ADVANCE DIRECTIVE PLANNING Q5 YRS (NO INBASKET) 1972 ??? TSH Q1 YEAR (NO INBASKET) 11/23/2008 PAP NIL 12/05/2010 Gabi Carmona CMA January 03, 2015 8:04 AM documented in this encounter Miscellaneous Notes Addendum Note - Getachew Mills MD - 01/03/2015 2:50 PM CDT Addended by: GETACHEW MILLS on: 01/03/2015 02:50 PM Modules accepted: Orders Addendum Note - Antwan Herrera CMA - 01/03/2015 1:07 PM CDT Addended by: ANTWAN HERRERA on: 01/03/2015 01:07 PM Modules accepted: Orders, SmartSet documented in this encounter Plan of Treatment Not on filedocumented as of this encounter Procedures Procedure Name Priority Date/Time Associated Diagnosis Comme nts HC REMOVE IMPACTED Routine 01/03/2015 9:02 Impacted cerumen of CERUMEN AM CDT left ear NICOTINE AND COTININE Routine 01/03/2015 8:38 Routine general Results for this CONFIRMATION AM CDT medical examination at [facility] are in a health care facility the r esults section. NICOTINE & COTININE, Routine 01/03/2015 8:38 Routine general R esults for this BLOOD AM CDT medical examination at [facility] are in a health care facility the r esults section. CBC WITH PLATELETS & Routine 01/03/2015 8:38 Routine general R esults for this DIFFERENTIAL AM CDT medical examination at [facility] are in a health care facility the r esults section. HEMOGLOBIN A1C Routine 01/03/2015 8:38 Routine general Results for this (LABDAQ) AM CDT medical examination at [facility] are in a health care facility the r esults section. LIPID PANEL ([facility]Q) Routine 01/03/2015 8:38 Hyperlipidemia LD L Results for this AM CDT goal <130 procedure are in Routine general the results medical examination at [facility] on. a health care facility COMPREHENSIVE Routine 01/03/2015 8:38 Routine general Results for this METABOLIC PANEL AM CDT medical examination at [facility] are in (LABDAQ) a health care facility the r esults section. PHQ-9 DEPRESSION Routine 01/03/2015 Adjustment disorder Resu lts for this SCREENING ORDER with depressed mood [facility] are in the results section. GENERAL ANXIETY Routine 01/03/2015 Adjustment disorder Resul ts for this DISORDER with depressed mood procedur e are in QUESTIONNAIRE (ARELIS-7) the re sults section. documented in this encounter Results (ABNORMAL) CBC with platelets differential (04/05/2015 11:32 AM CDT) [facility] Method Time Signature WBC 3.7 (L) 4.0 - [facility] 11.0 [facility] 10e9/L [facility] RBC Count 4.47 3.8 - 5.2 [facility] 10e12/L [facility] Hemoglobin 13.1 11.7 - [facility] 15.7 g/dL [facility] Hematocrit 39.7 35.0 - [facility] 47.0 % [facility] MCV 89 78 - 100 [facility] fl [facility] MCH 29.3 26.5 - [facility] 33.0 pg [facility] MCHC 33.0 31.5 - [facility] 36.5 g/dL [facility] RDW 14.2 10.0 - [facility] 15.0 % [facility] Platelet Count 242 150 - 450 [facility] 10e9/L [facility] Diff Method Automated [facility] % Neutrophils 51.2 % [facility] % Lymphocytes 32.6 % [facility] % Monocytes 13.2 % [facility] % Eosinophils 1.9 % [facility] % Basophils 0.8 % [facility] % Immature 0.3 % [facility] Granulocytes [facility] Absolute 1.9 1.6 - 8.3 [facility] Neutrophil 10e9/L [facility] Absolute 1.2 0.8 - 5.3 [facility] Lymphocytes 10e9/L [facility] Absolute 0.5 0.0 - 1.3 [facility] Monocytes 10e9/L [facility] Absolute 0.1 0.0 - 0.7 [facility] Eosinophils 10e9/L [facility] Absolute 0.0 0.0 - 0.2 [facility] Basophils 10e9/L [facility] Abs Immature 0.0 0 - 0.4 [facility] Granulocytes 10e9/L [facility] Specimen Anatomical Collection Method Collection Time Receive d Time (Source) Location / / Volume Laterality Blood specimen VENOUS BLOOD / 04/05/2015 11:32 015 (specimen) Unknown AM CDT 11:33 AM CDT Getachew Mills MD LAB - BLOOD ORDERABLES Performing Organization Address City/State/ZIP Code Phon e Number [facility] [address] [place] [address] [facility] Nicotine and Cotinine Confirmation (01/03/2015 8:38 AM CDT) Component Value Ref Test Analysis Performed At [facility] Range Method Time Signature Nicotine <3 [place] Confirmation Unit: ng/mL CLINIC Cotinine <5 [place] Confirmation Unit: ng/mL CLINIC (Note) ?A cotinine concentration greater than ?25 ng/mL indicates active use of a nicotine- ?containing product (tobacco or smoking cessation ?product). Serum cotinine concentrations less than ?25 ng/mL could be consistent with passive exposure ?to tobacco smoke. Analysis performed by [employer] [facility] [id number] Specimen Anatomical Collection Method Collection Time Receive d Time (Source) Location / / Volume Laterality 01/03/2015 8:38 AM 5 9:11 CDT AM CDT Getachew Mills MD LAB - BLOOD ORDERABLES Performing Organization Address City/[facility]/ZIP Code Phon e Number [address] [address] [address] Nicotine and Cotinine Serum (01/03/2015 8:38 AM CDT) Patholo gist Method Time Signature Nicotine and NEGATIVE [place] Cotinine Analysis performed by [employer] [place] [address] CLINIC Screen Specimen Anatomical Collection Method Collection Time Receive d Time (Source) Location / / Volume Laterality Blood specimen VENOUS BLOOD / 01/03/2015 8:38 AM 01/03 9:11 (specimen) Unknown CDT AM CDT Getachew Mills MD LAB - BLOOD ORDERABLES Performing Organization Address City/[facility]/ZIP Code Phon e Number [address] [phone] [address] Hemoglobin A1c ([place]) (01/03/2015 8:38 AM CDT) P athologist Signature Hemoglobin A1C 5.4 4.1 - 5.7 [facility] [place] [place] % CLINIC LABDAQ Specimen Anatomical Collection Method Collection Time Receive d Time (Source) Location / / Volume Laterality Blood specimen VENOUS BLOOD / 01/03/2015 8:38 AM 01/03 8:38 (specimen) Unknown CDT AM CDT Getachew Mills MD LAB - LABDAQ Performing Organization Address City/State/ZIP Code Phon e Number [facility] [address] [place] [id number] [address] (ABNORMAL) Comprehensive Metabolic Panel ([place]) (01/03/2015 8:38 AM CDT) [facility] Method Time Signature Glucose 91.0 60.0 - [place] 109.0 CLINIC LAB[facility]Q mg/dL Urea Nitrogen 20.0 7.0 - 30.0 [place] [facility] mg/dL CLINIC [facility] Calcium 9.1 8.5 - 10.4 [place] [facility] mg/dL CLINIC [facility] Creatinine 0.7 0.6 - 1.3 [place] mg/dL CLINIC [facility] eGFR Calculated 90.7 >60.0 [place] (Non Black CLINIC LABDAQ Reference) eGFR Calculated 109.8 >60.0 [place] [place] [place] (Black CLINIC LABDAQ Reference) Sodium 139.0 133.0 - [place] [facility] 144.0 CLINIC [facility]Q mmol/L Potassium 4.3 3.4 - 5.3 [place] mmol/L CLINIC [facility] Chloride 101.0 94.0 - [place] [facility] [place] [place] 109.0 CLINIC [facility] mmol/L Carbon Dioxide 34.0 (H) 20.0 - [place] [facility] 32.0 CLINIC [facility] mmol/L Albumin 4.0 3.2 - 4.5 [place] [facility] g/dL CLINIC [facility]Q Alkaline 52.0 40.0 - [place] Phosphatase 150.0 U/L [facility] ALT 25.0 0.0 - 50.0 [place] U/L [facility] AST 29.0 0.0 - 45.0 [place] [facility] U/L [facility] Bilirubin Total 0.6 0.2 - 1.3 [place] [facility] [place] mg/dL CLINIC LAB[facility]Q Protein Total 7.2 6.8 - 8.8 [place] [facility] [place] [place] g/dL CLINIC LAB[facility]Q Specimen Anatomical Collection Method Collection Time Receive d Time (Source) Location / / Volume Laterality Blood specimen VENOUS BLOOD / 01/03/2015 8:38 AM 01/03 8:38 (specimen) Unknown CDT AM CDT Getachew Mills MD LAB - LABDAQ Performing Organization Address City/State/ZIP Code Phon e Number [facility] [address] [place] [id number] [address] (ABNORMAL) Lipid Panel ([place]) (01/03/2015 8:38 AM CDT) [facility] Method Time Signature FASTING SPECIMEN Yes [place] [facility] Cholesterol 221.0 (H) 0.0 - [facility] [place] 200.0 CLINIC LABDAQ HDL Cholesterol 70.0 >50.0 [facility] Triglycerides 119.0 0.0 - [facility] 150.0 CLINIC LAB[facility]Q Cholesterol/HDL 3.2 0.0 - 5.0 [place] Ratio CLINIC [facility] LDL Cholesterol 127.0 0.0 - [place] Direct 129.0 CLINIC LAB[facility]Q VLDL-Cholesterol 24.0 7.0 - [place] 32.0 CLINIC [facility]Q Specimen Anatomical Collection Method Collection Time Receive d Time (Source) Location / / Volume Laterality Blood specimen VENOUS BLOOD / 01/03/2015 8:38 AM 01/03 8:38 (specimen) Unknown CDT AM CDT Getachew Mills MD LAB - LABDAQ Performing Organization Address City/State/ZIP Code Phon e Number [facility] [address] [place] [id number] [address] (ABNORMAL) CBC with platelets differential (01/03/2015 8:38 AM CDT) [facility] gist Method Time Signature WBC 3.2 (L) 4.0 - [facility] 11.0 [facility] 10e9/L [facility] RBC Count 4.29 3.8 - 5.2 [facility] 10e12/L [facility] Hemoglobin 12.9 11.7 - [facility] 15.7 g/dL [facility] Hematocrit 39.2 35.0 - [facility] 47.0 % [facility] MCV 91 78 - 100 [facility] MCH 30.1 26.5 - [facility] 33.0 pg [facility] MCHC 32.9 31.5 - [facility] 36.5 g/dL [facility] RDW 14.2 10.0 - [facility] 15.0 % [facility] Platelet Count 274 150 - 450 [facility] 10e9/L [facility] Diff Method Automated [facility] % Neutrophils 55.0 % [facility] % Lymphocytes 28.9 % [facility] % Monocytes 12.4 % [facility] % Eosinophils 2.5 % [facility] % Basophils 0.9 % [facility] % Immature 0.3 % [facility] Granulocytes [facility] Absolute 1.8 1.6 - 8.3 [facility] Neutrophil 10e9/L [facility] Absolute 0.9 0.8 - 5.3 [facility] Lymphocytes 10e9/L [facility] Absolute 0.4 0.0 - 1.3 [facility] Monocytes 10e9/L [facility] Absolute 0.1 0.0 - 0.7 [facility] Eosinophils 10e9/L [facility] Absolute 0.0 0.0 - 0.2 [facility] Basophils 10e9/L [facility] Abs Immature 0.0 0 - 0.4 [facility] OF Granulocytes 10e9/L [facility] Specimen Anatomical Collection Method Collection Time Receive d Time (Source) Location / / Volume Laterality Blood specimen VENOUS BLOOD / 01/03/2015 8:38 AM 01/03 9:11 (specimen) Unknown CDT AM CDT Getachew Mills MD LAB - BLOOD ORDERABLES Performing Organization Address City/State/ZIP Code Phon e Number [facility] [address] [place] [address] [facility] GENERAL ANXIETY DISORDER QUESTIONNAIRE (ARELIS) (01/03/2015) Narrative Antwan Herrera, [facility] - 01/03/2015 GAD7 score: 1 Getachew Mills MD OTHER PHQ-9 ORDER - select when completing PHQ-9 (01/03/2015) Narrative Antwan Herrera, [facility] - 01/03/2015 Today's Depression Rating was 1 Getachew Mills MD OTHER documented in this encounter Visit Diagnoses Diagnosis Routine general medical examination at a health care facility - Primary Hyperlipidemia LDL goal <130 Other and unspecified hyperlipidemia Screening for osteoporosis Special screening for osteoporosis Essential hypertension Unspecified essential hypertension Adjustment disorder with depressed mood Impacted cerumen of left ear Impacted cerumen Neutropenia (H) Neutropenia, unspecified documented in this encounter Care Teams Senior Clinical Data Coordinator Relationship Specialty Start Date End Date Getachew Mills MD PCP - General Internal Medicine 07/01/13 [address] [place] [facility] [place] [address] documented as of this encounter
--- OUTSIDE RECORDS SUMMARY | 2022-04-16 19:37 | XMS_ITS | Encounter Summary ---
:1955 Author Organization [place] Address [address] [place] [address]. [place] [address] Care Team Providers Name Role Phone Vanessa Mills MD Primary Care Provider [phone] Reason for Visit Reason Onset Date Comments Refill Request 02/26/2016 Encounter Details Date Type Department Care Team Description 02/26/2016 Refill [facility] Vanessa Mills, Refill Request [facility] Brii rai MD 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 Future labs ordered cmp. documented in this encounter Plan of Treatment Not on filedocumented as of this encounter Visit Diagnoses Diagnosis Other type of osteoarthritis, unspecifie d site - Primary documented in this encounter Care Teams Petal Cutter Relationship Specialty Start Date End Date Vanessa Mills MD PCP - General Internal Medicine 07/01/[address] [place] [address] documented as of this encounter
--- OUTSIDE RECORDS SUMMARY | 2022-04-16 19:37 | XMS_ITS | Encounter Summary ---
:1955 Author Organization [place] Address [address] [place] [address] Care Team Providers Name Role Phone Vanessa Mills MD Primary Care Provider [phone] Serum, Khadra Radford MD Unavailable [phone] Serum, Khadra Radford MD Unavailable [phone] Reason for Visit Reason Onset Date Comments Refill Request 12/02/2016 Encounter Details Date Type Department Care Team Description 12/02/2016 Refill [facility] Vanessa Mills, Refill Request [facility] [place] [facility] Kerry rai MD 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 Has not been back in to make sure BP's good. . on this new med. documented in this encounter Plan of Treatment Not on filedocumented as of this encounter Visit Diagnoses Diagnosis Hypertension documented in this encounter Additional Health Concerns Assessment Noted Time PHQ-9 Depression Total Score: 0 03/27/2016 1:53 PM CDT documented as of this encounter Care Teams Solution Design Engineer Relationship Specialty Start Date End Date Vanessa Mills MD PCP - General Internal Medicine 07/01/[address] [place] [address] Khadra Thakur MD PCP - Assigned PCP 09/30/16 10/20/[address] [address] Khadra Thakur MD Assigned PCP 09/30/16 07/10/[address] [address] documented as of this encounter
--- OUTSIDE RECORDS SUMMARY | 2022-04-16 19:37 | XMS_ITS | Encounter Summary ---
:1955 Author Organization [place] Address [address] [place] [address] Care Team Providers Name Role Phone Vanessa Mills MD Primary Care Provider [phone] Reason for Visit Reason Comments URI Cough, fever, chills, aches, swollen lymph nodes. No sore throat. 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 She is not sleeping well due to the cough. Nonsmoker. Denies shortness of breath. Current Outpatient Prescriptions Medication Sig Dispense Refill ??? hydrochlorothiazide (HYDRODIURIL) 25 MG tablet Take [...] ??? Morphine Nausea and dizziness EXAM BP 137/83 Pulse 56 Temp(Src) 98.1 ??F (36.7 ??C) (Oral) SpO2 98% Gen: appears fatigued, exhausted, coughing HEENT: Conjunctiva nl, TM normal bilaterally, OP clear, no posterior erythema Neck : shoddy LAD COR: S1,S2, no murmur Lungs: CTA bilaterally, no rhonchi, wheezes or rales Influenza swab : NEGATIVE Assessment: (786.2) Cough (primary encounter diagnosis) Comment: influenza like illness Plan: Influenza A/B Antigen ([place]), albuterol (VENTOLIN HFA) 108 (90 BASE) MCG/ACT inhaler, guaiFENesin-codeine (ROBITUSSIN AC) 100-10 MG/5ML SOLN Recommended use of albuterol q 4 hr (spacer given) to treat cough and bronchospasm. Rx for cough syrup so she can sleep. Rest, fluids, she will contact me if worsening over the weekend. Vanessa Mills MD Internal Medicine/Pediatrics documented in this encounter Nursing Notes Javier Antwan M, BEHAVIORAL HEALTH ASSOCIATE - 11/17/2014 4:43 PM CDT Chief Complaint Patient presents with ??? URI Cough, fever, chills, aches, swollen lymph nodes. No sore throat. 59 year old Blood pressure 137/83, pulse 56, temperature 98.1 ??F (36.7 ??C), temperature source Oral, SpO2 98 %. There is no weight on file to calculate BMI. Wt Readings from Last 3 Encounters: 01/13/14 187 lb (84.823 kg) 10/13/13 184 lb (83.462 kg) 05/19/13 176 lb (79.833 kg) BP Readings from Last 3 Encounters: 11/17/14 137/83 01/13/14 138/85 10/13/13 148/84 Patient Active Problem List Diagnosis ??? HEADACHE ??? OSTEOARTHROS NOS-OTHER SITE ??? FEMALE STRESS INCONTINENCE ??? MENOPAUSAL DISORDER NEC ??? iamLUMBAGO ??? HYPOTHYROIDISM NOS ??? OBESITY NOS ??? DUCTAL CARCINOMA IN SITU ??? Constipation ? ? HYPERLIPIDEMIA LDL GOAL <130 ??? Hypertension ??? Major depression, chronic Allergies Allergen Reactions ??? Ancef [Cefazolin Sodium] Rash ??? Meperidine nausea ??? Morphine Nausea and dizziness Current Outpatient Prescriptions Medication Sig Dispense Refill ??? acetaminophen (TYLENOL EX ST ARTHRITIS PAIN) 500 MG tablet Take 2 tablets by mouth daily ??? hydrochlorothiazide (HYDRODIURIL) 25 MG tablet Take [...] MG OR TABS 1 tablet po qd History Substance Use Topics ??? Smoking status: Never Smoker ??? Smokeless tobacco: Never Used ??? Alcohol Use: Yes Comment: 1 glass of wine per week Health Maintenance Topic Date Due ??? ADVANCE DIRECTIVE PLANNING Q5 YRS (NO INBASKET) 1972 ??? TSH Q1 YEAR (NO INBASKET) 11/23/2008 ??? INFLUENZA VACCINE (SYSTEM ASSIGNED) 04/18/2015 ??? DEXA Q3 YR 01/14/2016 ??? LIPID MONITORING Q5 YEARS (NO INBASKET) 01/13/2019 ??? COLONOSCOPY Q10 YR INBASKET MESSAGE 04/16/2023 ??? TETANUS Q10 YR 01/14/2024 Antwan Herrera CMA 11/17/2014 4:43 PM documented in this encounter Plan of Treatment Not on filedocumented as of this encounter Procedures Procedure Name Priority Date/Time Associated Diagnosis Comme nts INFLUENZA A/B Routine 11/17/2014 4:41 PM Cough Results for this ANTIGEN ([facility]) CDT procedure a re in the results section. documented in this encounter Results Influenza A/B Antigen ([place]) (11/17/2014 4:41 PM CDT) P athologist Signature Influenza A NEGATIVE [facility] Influenza B NEGATIVE [facility] Specimen Anatomical Collection Method Collection Time Receive d Time (Source) Location / / Volume Laterality Swab from nasal SWAB FROM NASAL 11/17/2014 4:41 PM 09/2014 4:41 sinus (specimen) SINUS / Unknown CDT PM CDT Vanessa Mills MD LAB - [facility] Performing Organization Address City/State/ZIP Code Phon e Number [facility] [address] [place] [address] [address] documented in this encounter Visit Diagnoses Diagnosis Cough - Primary documented in this encounter Care Teams It Systems Analyst Consultant Relationship Specialty Start Date End Date Vanessa Mills MD PCP - General Internal Medicine 07/01/13 [address] [facility] [place], [place] [id number] documented as of this encounter
--- OUTSIDE RECORDS SUMMARY | 2022-04-16 19:37 | XMS_ITS | Encounter Summary ---
:1955 Author Organization [place] Address [address] [place] [address] Care Team Providers Name Role Phone Vanessa Mills MD Primary Care Provider [phone] Reason for Visit Reason Comments Pre-Op Exam right ankle tendon and repai r Encounter Details Date Type Department Care Team Description 06/27/2015 Office Visit [facility] Vanessa Mills Preoperative examination (Pr imary Dx); Phill Mendez MD Essential hypertension [address] [place], [place] [id number] Social History Tobacco Use Types Packs/Day Years Used Date Never Smoker Smokeless Tobacco: Never Used Alcohol Use Standard Drinks/Week Comments Yes 0 (1 standard drink = 0.6 oz pure alcoho l) 1 glass of wine per week 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 Date Recorded 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 [address] [facility] [address] PRE-OP EVALUATION: Today's date: 06/27/2015 Valeri Keenan (: 1955) presents for pre-operative evaluation assessment as requested by Dr. Deras. She requires evaluation and anesthesia risk assessment prior to undergoing surgery/procedure for treatment of right foot pain . Proposed surgery, Repair of ruptured tendon in the right foot, revision of previous fusion of right foot (broken hardware). Date of Surgery/ Procedure: 06/28/15 Time of Surgery/ Procedure: 9:30 am Hospital/Surgical Facility: [facility] [phone] Primary Physician: Dr. Vanessa Mills Type of Anesthesia Anticipated: General History of anesthesia complications: NONE and YES: Personal HX Nausea History of abnormal bleeding: NONE History of blood transfusions: NO Patient has a Health Care Directive or Living Will: NO PREOP QUESTIONNAIRE 1- NO - Do you ever have any pain or discomfort in your chest? 2- NO - Have you ever had a severe pain across the front of your chest lasting for half an hour or more? 3- YES - Do you have swelling in your feet or ankles at times? (related to injury of right ankle) 4- NO - Are you troubled by [...] or bloody stools, or abnormal vaginal bleeding? 14-YES- Have you or any of your relatives ever had problems with anesthesia? Severe nausea, use Zofran during surgery 15-NO - Do you snore or stop breathing at night? 16-NO - Do you have any prosthetic heart valves or joints? 17-NO - Is there any chance that you may be ? HPI: Preop Valeri is a 60 yo woman who is here for a preoperative evaluation. She is to undergo elective repairof a tendon in her right anterior ankle. She has previously had surgery for fusion of her right ankle in 2013. She has a history of hypertension, breast cancer (in remission), severe osteoarthritis, hyp othyroidism, and depression. She has had many surgeries and has not had any adverse reaction to anesthesia except severe post op nausea and vomiting. No hx of sleep apnea, no hx of blood clots or need for transfusions. She is currently well, without fever, chills, URI symptoms, abdominal complaints orurinary symptoms. HTN She is treated with HCTZ 25mg daily. Nonsmoker. No hx of CAD or Stroke. Blood pressure is typically well controlled. She did not take her dose this morning. Back pain Valeri reports having slipped on ice this past winter. Has gotten 2 cortisone injections in lower back in the past 2 months. Went to [facility] for care. MRI done showing some degenerative changes, bone spurs L1, L5 inections on the right side. Injection helped x 3-4 days. Pain at right lumbar spine wraps around to right lower groin. Pain is worse with lying on the right side. Awakens from sleep and if sheurinates it improves. She had been going to physical therapy and it was helping some. Thinking aboutacupuncture. Pain limits her ability to do regular exercise, waking. Patient Active Problem List Diagnosis Date Noted ??? Hypertension 01/13/2013 Priority: Medium ??? Major depression, chronic 01/13/2013 Priority: Medium ? ? HYPERLIPIDEMIA LDL GOAL <130 09/27/2009 Priority: Medium ??? Constipation 02/15/2009 Priority: Medium ??? Malignant neoplasm of female breast Priority: Medium Right side, mastectomy Problem list [...] by automated process. Provider to review ??? OSTEOARTHROS NOS-OTHER SITE 09/27/2004 Priority: Medium Hands, multiple joints, followed by Rheum ??? FEMALE STRESS INCONTINENCE 09/27/2004 Priority: Medium ??? MENOPAUSAL DISORDER NEC 09/27/2004 Priority: Medium On HRT x 9months, then DC Past Medical History Diagnosis Date ??? Headache(784.0) ??? Temporomandibular joint disorders, unspecified ??? Osteoarthrosis, unspecified whether generalized or localized, other specified sites 2003 Hands, multiple joints, followed by Rheum ??? Female stress incontinence ??? MEDICAL HISTORY OF - 2002 DEXA normal ??? Other specified menopausal and postmenopausal disorder 2002 On HRT x 9months, then DC ??? Personal history of colonic polyps 04/2005 adenoma ??? Pure hypercholesterolemia 2005 GOAL IS LDL<130 ??? 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 Carpal tunnel syndrome 12/05/10 ??? Depression 12/25/09 ??? Hypothyroidism 12/25/09 ??? Headache(784.0) 12/05/10 ??? Osteoarthritis 12/05/10 followed by electronic engineering technician; Affects hands, feet, multiple joints Past Surgical History Procedure Laterality Date ??? [...] Foot surgery 2013 fusion of right foot Current Outpatient Prescriptions Medication Sig Dispense Refill ??? Turmeric Curcumin 500 MG CAPS Take 500 mg by mouth daily 60 capsule 0 ??? hydrochlorothiazide (HYDRODIURIL) 25 MG tablet Take 1 tablet (25 mg) by mouth daily 30 tablet 11 ??? FLUoxetine (PROZAC) 40 MG capsule Take 1 capsule (40 mg) by mouth daily 30 capsule 11 ??? acetaminophen (TYLENOL EX ST ARTHRITIS PAIN) 500 MG tablet Take 2 tablets by mouth daily ??? PLAQUENIL 200 MG OR TABS one tablet twice a day 60 prn ??? VITAMIN D 1000 UNIT OR TABS 1 TABLET DAILY 30 0 ??? CALCIUM 600 + D 600-200 MG-UNIT OR TABS 1 tablet daily 3 MONTHS 1 YEAR ??? PIROXICAM 20 MG OR CAPS 1 CAPSULE DAILY 30 0 ??? MULTI-VITAMIN OR TABS 1 tablet daily 0 ??? VITAMIN C 500 MG OR TABS 1 tablet po qd ??? LEVOTHYROXINE SODIUM 175 MCG OR TABS 1 TABLET DAILY 30 0 ??? UNKNOWN MED DOSAGE Glucosamine Chondroitin 1500/1200 2 tabs po qd OTC products: None, except as noted above Allergies Allergen Reactions ??? Ancef [Cefazolin Sodium] Rash ??? Meperidine nausea ??? Morphine Nausea and dizziness Latex Allergy: NO History Substance Use Topics ??? Smoking status: Never Smoker ??? Smokeless tobacco: Never Used ??? Alcohol Use: Yes Comment: 1 glass of wine per week History Drug Use No REVIEW OF SYSTEMS: Constitutional, HEENT, cardiovascular, pulmonary, GI, , musculoskeletal, neuro, skin, endocrine and psych systems are negative, except as otherwise noted. EXAM: BP 140/86 mmHg Pulse 64 Wt 187 lb (84.823 kg) GENERAL APPEARANCE: healthy, alert and no distress HENT: ear canals and TM's normal and nose and mouth without ulcers or lesions RESP: lungs clear to auscultation - no rales, rhonchi or wheezes CV: regular rate and rhythm, normal S1 S2, II/ murmur, click or rub ABDOMEN: soft, nontender, no HSM or masses and bowel sounds normal NEURO: Normal strength and tone, sensory exam grossly normal, mentation intact and speech normal Right ankle: local thickening over anterior ankle, no redness or warmth, no other ankle edema DIAGNOSTICS: Preop Testing EKG: appears normal, NSR, 60, normal axis, Intra-atrial conduction delay, no acute ST/T changes c/w ischemia, no LVH by voltage criteria, unchanged from previous tracings (May 2013) Read by Vanessa Mills MD Results for orders placed or performed in visit on 06/27/15 Basic Metabolic Panel ([place]) Result Value Ref Range Glucose 98.0 60.0 - 109.0 mg/dL Urea Nitrogen 16.0 7.0 - 30.0 mg/dL Calcium 8.9 8.5 - 10.4 mg/dL Creatinine 0.6 0.6 - 1.3 mg/dL eGFR Calculated (Non Black Reference) 108.0 >60.0 eGFR Calculated (Black Reference) 130.7 >60.0 Sodium 138.0 133.0 - 144.0 mmol/L Potassium 4.7 3.4 - 5.3 mmol/L Chloride 97.0 94.0 - 109.0 mmol/L Carbon Dioxide 31.0 20.0 - 32.0 mmol/L IMPRESSION: (Z01.818) Preoperative examination (primary encounter diagnosis) Comment: elective ankle surgery for ruptured tendon at anterior ankle and revision of previous fusion of right foot (faulty hardware) Plan: no contraindication to surgery. Proceed as planned. Recommend using Zofran in the post op period to control nausea and vomiting (I10) Essential hypertension Comment: adequate control Plan: Basic Metabolic Panel ([place]) Take med with sip of water on morning of the surgery. The proposed surgical procedure is considered INTERMEDIATE risk. For above listed surgery and anesthesia: Patient is at MODERATE risk for surgery/procedure and perioperative/procedure complications. RECOMMENDATIONS: --Approval given to proceed with proposed procedure, without further diagnostic evaluation. Signed Electronically by: Vanessa Mills MD Copy of this evaluation report is provided to requesting physician. Preop Guidelines ING MACHINE TOOL SETTER documented in this encounter Nursing Notes Margarita Aguirre CMA - 06/27/2015 10:52 AM CST Chief Complaint Patient presents with ??? Pre-Op Exam right ankle tendon and repair 60 year old Blood pressure 140/86, pulse 64, weight 187 lb (84.823 kg). Body mass index is 32.08 kg/(m^2). Wt Readings from Last 2 Encounters: 06/27/15 187 lb (84.823 kg) 01/03/15 183 lb 0.6 oz (83.026 kg) BP Readings from Last 3 Encounters: 06/27/15 140/86 01/03/15 106/72 11/17/14 137/83 Patient Active Problem List Diagnosis ??? Headache ??? OSTEOARTHROS NOS-OTHER SITE ??? FEMALE STRESS INCONTINENCE ??? MENOPAUSAL DISORDER NEC ??? iamLUMBAGO ??? Hypothyroidism ??? Obesity ??? Malignant neoplasm of female breast ??? Constipation ? ? HYPERLIPIDEMIA LDL GOAL <130 ??? Major depression, chronic ??? Essential hypertension Current Outpatient Prescriptions Medication Sig Dispense Refill ??? hydrochlorothiazide (HYDRODIURIL) 25 MG tablet Take 1 tablet (25 mg) by mouth daily 30 tablet 11 ??? FLUoxetine (PROZAC) 40 MG capsule Take 1 capsule (40 mg) by mouth daily 30 capsule 11 ??? acetaminophen (TYLENOL EX ST ARTHRITIS PAIN) [...] 11/23/2008 ??? INFLUENZA VACCINE (SYSTEM ASSIGNED) 04/18/2015 MARGARITA AGUIRRE CMA June 27, 2015 10:52 AM ING MACHINE TOOL SETTER documented in this encounter Miscellaneous Notes Addendum Note - Mary Carmona CMA - 06/27/2015 2:10 PM LOADING MACHINE TOOL SETTER Addended by: MARY CARMONA on: 06/27/2015 02:10 PM Modules accepted: Orders ING MACHINE TOOL SETTER documented in this encounter Plan of Treatment Not on filedocumented as of this encounter Procedures Procedure Name Priority Date/Time Associated Diagnosis Comme nts BASIC METABOLIC Routine 06/27/2015 11:14 Essential Results for this PANEL ([facility]) AM LOADING MACHINE TOOL SETTER hypertension procedure are in the results section. EKG 12-LEAD Routine 06/27/2015 Preoperative COMPLETE W/READ - examination CLINICS documented in this encounter Results Basic Metabolic Panel ([place]) (06/27/2015 11:14 AM LOADING MACHINE TOOL SETTER) athologist Signature Glucose 98.0 60.0 - [place] 109.0 [facility] mg/dL Urea Nitrogen 16.0 7.0 - 30.0 [place] mg/dL [facility] Calcium 8.9 8.5 - 10.4 [place] mg/dL [facility] Creatinine 0.6 0.6 - 1.3 [place] mg/dL [facility] eGFR Calculated 108.0 >60.0 [place] (Non Black CLINIC [facility] Reference) eGFR Calculated 130.7 >60.0 [place] (Black [facility]IN[facility] Reference) Sodium 138.0 133.0 - [place] 144.0 [facility] mmol/L Potassium 4.7 3.4 - 5.3 [place] mmol/L [facility] Chloride 97.0 94.0 - [place] 109.0 [facility] mmol/L Carbon Dioxide 31.0 20.0 - [place] 32.0 [facility] mmol/L Specimen Anatomical Collection Method Collection Time Receive d Time (Source) Location / / Volume Laterality Blood specimen VENOUS BLOOD / 06/27/2015 11:14 015 (specimen) Unknown AM LOADING MACHINE TOOL SETTER 11:15 AM LOADING MACHINE TOOL SETTER Vanessa Mills MD LAB - [facility] Performing Organization Address City/State/ZIP Code Phon e Number [facility] [address] [place] [address] [address] EKG 12-lead complete w/read - Clinics (06/27/2015) Narrative This result has an attachment that is no t available. Vanessa Mills MD ECG ORDERABLES documented in this encounter Visit Diagnoses Diagnosis Preoperative examination - Primary Preoperative examination, unspecified Essential hypertension Unspecified essential hypertension documented in this encounter Care Teams Stationary Fireman Relationship Specialty Start Date End Date Vanessa Mills MD PCP - General Internal Medicine 07/01/[address] [place] [id number] documented as of this encounter
--- OUTSIDE RECORDS SUMMARY | 2022-04-16 19:37 | XMS_ITS | Encounter Summary ---
:1955 Author Organization [place] Address [address] [place] [address] Care Team Providers Name Role Phone Vanessa Mills MD Primary Care Provider [phone] Serum, Khadra Radford MD Unavailable [phone] Serum, Khadra Radford MD Unavailable [phone] Reason for Visit Reason Onset Date Comments Refill Request 02/12/2017 Encounter Details Date Type Department Care Team Description 02/12/2017 Refill [facility] Vanessa Mills, [facility]ill [facility] Kerry rai MD 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 Has not been back in to check BP since change. I Mycharted her last month about needs the appt, she read it but has not made an appt yet. You can decrease down to 15 pills if you like. documented in this encounter Plan of Treatment Not on filedocumented as of this encounter Visit Diagnoses Diagnosis Essential hypertension Unspecified essential hypertension documented in this encounter Additional Health Concerns Assessment Noted Time PHQ-9 Depression Total Score: 0 03/27/2016 1:53 PM CDT documented as of this encounter Care Teams Senior Online Marketing Manager Relationship Specialty Start Date End Date Vanessa Mills MD PCP - General Internal Medicine 07/01/[address] [place] [id number] Khadra Thakur MD PCP - Assigned PCP 09/30/16 10/20/[address] [address] Khadra Thakur MD Assigned PCP 09/30/16 07/10/[address] [id number] documented as of this encounter
--- OUTSIDE RECORDS SUMMARY | 2022-04-16 19:37 | XMS_ITS | Encounter Summary ---
:1955 Author Organization [facility] Address [address] [place] [address] Care Team Providers Name Role Phone Vanessa Mills MD Primary Care Provider [phone] Reason for Visit Reason Comments Physical Radiology Visit Mammogram Dizziness randomly occurs Encounter Details Date Type Department Care Team Description 03/25/2016 Office Visit [facility] Vanessa Mills Annual physical exam (Primar y Dx); [facility] Need for hepatitis C screening test; Building [address] [place] Osteoarthritis; 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 Last Filed Vital Signs Vital Sign Reading Time Taken Comments Blood Pressure 154/85 03/25/2016 1:44 PM CDT Pulse 59 03/25/2016 1:39 PM CDT Temperature 36.7 ??C (98.1 ??F) 03/25/2016 1:39 PM CDT Respiratory Rate - - Oxygen Saturation 98% 03/25/2016 1:39 PM CDT Inhaled Oxygen Concentration - - Weight 84.7 kg (186 lb 12 oz) 03/25/2016 1:39 PM CDT Height 161.4 cm (5' 3.54) 03/25/2016 1:39 PM CDT Body Mass Index 32.52 03/25/2016 1:39 PM CDT documented in this encounter Patient Instructions Patient InstructionsVanessa Mills MD - 03/25/2016 2:04 PM CDT Shingles vaccine Please call you insurance carrier to see if shingles vaccine is covered. If so, then ask about where to go to get the vaccine-pharmacy vs clinic. documented in this encounter Progress Notes Vanessa Mills MD - 03/25/2016 1:21 AM CDT Valeri Rojas is here for a general check up. She is not fasting. She is up to date on eye exams(glasses) and dental visits. Wears seat belt-yes. Bike helmet- none. Concerns today: LEISA Trammell is here for a check up .s/p IZAIAH/BSO for fibroids. S/p mastectomies for breast cancer on rightside (left done prophylactically) . Up to date on colonoscopy (duet 2022). Tdap up to date. Gave advanced directive info today. Discussed shingles vaccine today. Depression She is on fluoxetine for depression. 0 PHQ9 score = 0 ARELIS 7 score = 0 Wishes to increase dose to 60mg daily. Arthritis She follows with a mortgage sales manager for hx of arthritis. She takes Feldene 20mg daily along with ES Tylenol 1000mg daily. Also takes Advil PM at night 400mg dose at night. She has had joint surgery in the past. Off plaquenil since December. Notes no difference. Tumeric capsules, 3 per day, some heartburn uses Ranitidine. Hands, feet, knees affected. Left shoulder pain. Hypothyroidism She is s/p total thyroidectomy. Follows with contract engineer for management. HTN She is on HCTZ 25mg daily. BP running high. Denies chest pain or leg edema. Health Maintenance Topic Date Due ??? ADVANCE DIRECTIVE PLANNING Q5 YRS (NO INBASKET) 1972 ??? HEPATITIS C SCREENING 1972 ??? TSH Q1 YEAR (NO INBASKET) 11/23/2008 ??? INFLUENZA VACCINE (SYSTEM ASSIGNED) 04/18/2016 ??? DEXA Q3 YR 08/04/2018 ??? LIPID MONITORING Q5 YEARS (NO INBASKET) 01/04/2020 ??? COLONOSCOPY Q10 YR INBASKET MESSAGE 04/16/2023 ??? TETANUS Q10 YR 01/14/2024 Patient Active Problem List Diagnosis ??? Headache ??? Osteoarthrosis, unspecified whether generalized or localized, other specified sites ??? Female stress incontinence ??? Other specified menopausal and postmenopausal disorder ??? iamLUMBAGO ??? Hypothyroidism ??? Obesity ??? Malignant neoplasm of female breast (H) ??? Constipation ? ? HYPERLIPIDEMIA LDL GOAL <130 ??? Major depression, chronic ??? Essential hypertension Past Surgical History Procedure Laterality Date ??? [...] Relation Age of Onset ??? C.A.D. Father AL 53, at 58 ??? Neurologic Disorder Father Parkinsons ??? Neurologic Disorder Mother headaches ??? Arthritis Mother DJD ??? Hypertension Mother ??? Hypertension Brother Two brothers with HTN ??? Cerebrovascular Accident Maternal Grandmother ??? Circulatory Paternal Grandmother Brain Aneurysm ??? Breast Cancer No family hx of ??? Cancer - colorectal No family hx of ??? Osteoporosis Mother ??? Osteoporosis Paternal Grandmother ??? Cancer Other niece wtih squamous cell ca of tongue, age 42, nonsmoker/no Etoh ??? Prostate Cancer Brother ??? Cancer Mother 95 ?primary vs metastatic ??? 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 no STD hx? no cycle length: na dysmenorrhea/PMS: na Vasomotor sx: mild Contraception: na G 3 P 2 A 1 Self Breast exam: mastectomy Current Outpatient Prescriptions Medication Sig Dispense Refill ??? piroxicam (FELDENE) 20 MG capsule Take 1 capsule (20 mg) by mouth daily 90 capsule 0 ??? hydrochlorothiazide (HYDRODIURIL) 25 MG tablet Take 1 tablet (25 mg) by mouth daily 90 tablet 1 ??? FLUoxetine (PROZAC) 40 MG capsule Take 1 capsule (40 mg) by mouth daily Needs updated PHQ9 assessment for further refills 90 capsule 0 ??? Turmeric Curcumin 500 [...] Chondroitin 1500/1200 2 tabs po qd ??? MULTI-VITAMIN OR TABS 1 tablet daily [...] RESP:NEGATIVE for significant cough or SOB BREAST: hx of breast cancer, right mastectomy, then removal of left (prophylactic mastectomy) reconstruction. CV: NEGATIVE for chest pain, palpitations, ALLAN, orthopnea, PND or peripheral edema GI: NEGATIVE for nausea, abdominal pain, heartburn, or change in bowel habits :NEGATIVE for frequency, dysuria, or hematuria, S/p TAHBSO in 2003 for fibroids. MUSCULOSKELETAL:hx of arthritis, followed by mortgage sales manager NEURO: NEGATIVE for weakness, dizziness or paresthesias ENDOCRINE: Hx of total thyroidectomy, followed by contract engineer. HEME/ALLERGY/IMMUNE: NEGATIVE for bleeding problems PSYCHIATRIC: NEGATIVE for changes in mood or affect, on fluoxetine , she scores low on inventory butwishes to increase dose of fluoxetine. No current counseling. EXAM BP 154/85 mmHg Pulse 59 Temp(Src) 98.1 ??F (36.7 ??C) Ht 5' 3.54 (161.4 cm) Wt 186 lb 12 oz(84.709 kg) BMI 32.52 kg/m2 SpO2 98% GENERAL APPEARANCE: Alert, pleasant, NAD, overweight EYES: PERRL, EOMI, conjunctiva clear HENT: TM not visualized Bilaterally, canals blocked by cerumen Nose and mouth without lesions NECK: no adenopathy, thyroid normal to palpation RESP: lungs clear to auscultation bilaterally BREAST: bilateral implants, no overlying skin rash, axillae negative. Chest wall, point tenderness with palpation of her anterior chest wall CV: regular rate and rhythm, normal S1 S2, II/ murmur,best heart at RUSB (this is new) . no carotid bruits ABDOMEN: soft, nontender, without HSM or masses. Bowel sounds normal : Not done RECTAL EXAM: not done MS: Deformity at MCP joints of both hands, no redness. Thenar wasting bilaterally SKIN: no suspicious lesions or rashes NEURO: Normal strength and tone, sensory exam grossly normal, DTR normoreflexive in upper and lower extremities PSYCH: mentation appears normal. and affect normal/bright. EXT: no peripheral edema, pedal pulses palpable Assessment: (Z00.00) Annual physical exam (primary encounter diagnosis) Comment: 61 yo woman with multiple medical issues in stable health Plan: Lipid Profile Anticipatory guidance given today regarding diet, exercise and calcium intake, safety. She is up todate on HCM. Recommend she ask insurance about shingles vaccine. (Z11.59) Need for hepatitis C screening test Comment: routine screening Plan: Hepatitis C Screen Reflex to HCV RNA Quant and Genotype (M19.041, M19.042) Osteoarthritis Comment: Hands, multiple joints, followed by Rheum Plan: she will be starting with new mortgage sales manager (old one retired). Off plaquenil as it was not helping. (F32.9) Depression Comment: currently on 40mg fluoxetine, she would like higher dose Plan: FLUoxetine (PROZAC) 40 MG capsule, FLUoxetine HCl, PMDD, 20 MG CAPS Recommend increasing to 60mg dose. Recommend counseling. (I10) Hypertension Comment: on HCTZ 25mg BP Readings from Last 3 Encounters: 03/25/16 154/85 06/27/15 140/86 01/03/15 106/72 Plan: Basic metabolic panel, lisinopril-hydrochlorothiazide (PRINZIDE,ZESTORETIC) 10-12.5 MG per tablet Stop HCTZ and start lisinopril/hctaz 10/12.5mg daily, return for nurse visit to have BP checked (R01.1) Heart murmur Comment: RUSB-new Plan: Echocardiogram Obtain ECHO (H61.23) Bilateral impacted cerumen Comment: dampened hearing Plan: she will return after using debrox drops x 3 days for irrigation of ears. Vanessa Mills MD Internal Medicine/Pediatrics documented in this encounter Nursing Notes QuinterosLatasha jessica - 03/25/2016 1:41 PM CDT 61 year old Chief Complaint Patient presents with ??? Physical ??? Radiology Visit Mammogram ??? Dizziness randomly occurs Blood pressure 147/84, pulse 59, temperature 98.1 ??F (36.7 ??C), height 5' 3.54 (161.4 cm), [id number] lb 12 oz (84.709 kg), SpO2 98 %. Body mass index is 32.52 kg/(m^2). Patient Active Problem List Diagnosis ??? Headache ??? Female stress incontinence ??? Other specified menopausal and postmenopausal disorder ??? iamLUMBAGO ??? Hypothyroidism ??? Obesity ??? Malignant neoplasm of female breast (H) ??? Constipation ? ? HYPERLIPIDEMIA LDL GOAL <130 ??? Osteoarthritis ??? Depression ??? Hypertension Wt Readings from Last 2 Encounters: 03/25/16 186 lb 12 oz (84.709 kg) 06/27/15 187 lb (84.823 kg) BP Readings from Last 3 Encounters: 03/25/16 147/84 06/27/15 140/86 01/03/15 106/72 Current Outpatient Prescriptions Medication ??? piroxicam (FELDENE) 20 MG capsule ??? hydrochlorothiazide (HYDRODIURIL) 25 MG tablet ??? FLUoxetine (PROZAC) 40 MG capsule ??? Turmeric Curcumin 500 MG CAPS ??? acetaminophen (TYLENOL EX ST ARTHRITIS PAIN) 500 MG tablet ??? LEVOTHYROXINE SODIUM 175 MCG OR TABS ??? VITAMIN D 1000 UNIT OR TABS ??? CALCIUM 600 + D 600-200 MG-UNIT OR TABS ??? UNKNOWN MED DOSAGE ??? MULTI-VITAMIN OR TABS ??? VITAMIN C 500 MG OR TABS No current facility-administered medications for this visit. Social History Substance Use Topics ??? Smoking status: Never Smoker ??? Smokeless tobacco: Never Used ??? Alcohol Use: Yes Comment: 1 glass of wine per week Health Maintenance Due Topic Date Due ??? ADVANCE DIRECTIVE PLANNING Q5 YRS (NO INBASKET) 1972 ??? HEPATITIS C SCREENING 1972 ??? TSH Q1 YEAR (NO INBASKET) 11/23/2008 ??? INFLUENZA VACCINE (SYSTEM ASSIGNED) 04/18/2016 PAP NIL 12/05/2010 March 25, 2016 1:41 PM documented in this encounter Plan of Treatment Not on filedocumented as of this encounter Procedures Procedure Name Priority Date/Time Associated Diagnosis Comme nts HEPATITIS C SCREEN Routine 03/25/2016 4:11 PM Need for hepatit is C Results for this REFLEX TO HCV RNA CDT screening test procedur e are in QUANT AND GENOTYPE the resul ts section. LIPID PROFILE Routine 03/25/2016 4:11 PM Annual physical exam Results for this CDT procedure are i n the results section. BASIC METABOLIC Routine 03/25/2016 4:11 PM Hypertension Result s for this PANEL CDT procedure are i n the results section. documented in this encounter Results Echocardiogram (04/08/2016 11:10 AM CDT) Anatomical Region Laterality Modality Echocardiography Specimen (Source) Anatomical Collection Method Collection Time Re ceived Time Location / / Volume Laterality 04/08/2016 9:48 AM CDT Narrative 04/08/2016 4:31 PM CDT Interpretation Summary [facility] Echocardiography Laboratory [address] [facility] [place] [address] Name: VALERI ROJAS : 1955 Study Date: 04/08/2016 09:48 AM Age: 61 yrs Gender: Female Patient Location: [facility] Reason For Study: Cardiac murmur Ordering Physician: VANESSA MILLS Referring Physician: [...] be different from the original. Interpretation Summary [facility] Echocardiography Laboratory [address] [place] [address] Name: VALERI ROJAS : 1955 Study Date: 04/08/2016 09:48 AM Age: 61 yrs Gender: Female Patient Location: [facility] Reason For Study: Cardiac murmur Ordering Physician: VANESSA MILLS Referring Physician: [...] Beata Zambrano MDon 0 04/08/2016 04:31 PM Vanessa Mills MD CV ECHO ORDERABLES Basic metabolic panel (03/25/2016 4:11 PM CDT) [facility] Method Time Signature Sodium 138 133 - 144 [facility] mmol/L [facility] Potassium 4.0 3.4 - 5.3 [facility] mmol/L [facility] Chloride 102 94 - 109 [facility] mmol/L [facility] Carbon Dioxide 28 20 - 32 [facility] mmol/L [facility] Anion Gap 7 3 - 14 [facility] mmol/L [facility] Glucose 81 70 - 99 [facility] mg/dL [facility] Urea Nitrogen 22 7 - 30 [facility] mg/dL [facility] Creatinine 0.66 0.52 - [facility] 1.04 [facility] mg/dL [facility] GFR Estimate >90 >60 [facility] Non GFR Calc mL/min/1. [facility] 7m2 [facility] GFR Estimate >90 >60 [facility] If Black GFR Calc mL/min/1. [place] [facility] 7m2 [facility] Calcium 9.0 8.5 - [facility] 10.1 [facility] mg/dL [facility] Specimen Anatomical Collection Method Collection Time Receive d Time (Source) Location / / Volume Laterality Blood specimen VENOUS BLOOD / 03/25/2016 4:11 PM 03/25 4:12 (specimen) Unknown CDT PM CDT Vanessa Mills MD LAB - BLOOD ORDERABLES Performing Organization Address City/[facility]/ZIP Code Phon e Number [facility] [address] (ABNORMAL) Lipid Profile (03/25/2016 4:11 PM CDT) P athologist Signature Cholesterol 200 (H) <200 mg/dL [facility] Comment: Desirable: <200 mg/dl Triglycerides 117 <150 mg/dL [facility] HDL Cholesterol 62 >49 mg/dL [facility] LDL Cholesterol Calculated 115 (H) <100 mg/dL [facility] Comment: Above desirable: ??100-129 mg/dl Borderline High: ??130-159 mg/dL High: ? 160-189 mg/dL Very high: ? >189 mg/dl Non HDL Cholesterol 138 (H) <130 mg/dL [facility] Comment: Above Desirable: ??130-159 mg/dl Borderline high: ??160-189 mg/dl High: ? 190-219 mg/dl Very high: ? >219 mg/dl Specimen Anatomical Collection Method Collection Time Receive d Time (Source) Location / / Volume Laterality Blood specimen VENOUS BLOOD / 03/25/2016 4:11 PM 03/25 4:12 (specimen) Unknown CDT PM CDT Vanessa Mills MD LAB - BLOOD ORDERABLES Performing Organization Address City/[facility]/ZIP Code Phon e Number [facility] [address] Hepatitis C Screen Reflex to HCV RNA Quant and Genotype (03/25/2016 4:11 PM CDT) Component Value Ref Test Analysis Performed At Patholo gist Range Method Time Signature Hepatitis C Nonreactive NR [facility] Antibody Assay performance character istics have not been established for newborns, [place] [facility] infants, and children [facility] Specimen Anatomical Collection Method Collection Time Receive d Time (Source) Location / / Volume Laterality Blood specimen VENOUS BLOOD / 03/25/2016 4:11 PM 03/25 4:12 (specimen) Unknown CDT PM CDT Vanessa Mills MD LAB - BLOOD ORDERABLES Performing Organization Address City/State/ZIP Code Phon e Number [facility] [address] [place], [place] [id number] [place] [address] documented in this encounter Visit Diagnoses Diagnosis Annual physical exam - Primary Routine general medical examination at a health care facility Need for hepatitis C screening test Special screening examination for other specified viral diseases Osteoarthritis Depression Major depressive disorder, single episod e, unspecified Hypertension Heart murmur Undiagnosed cardiac murmurs Bilateral impacted cerumen Impacted cerumen Heart murmur Undiagnosed cardiac murmurs documented in this encounter Additional Health Concerns Assessment Noted Time PHQ-9 Depression Total Score: 0 03/27/2016 1:53 PM CDT documented as of this encounter Care Teams Ship Officer Relationship Specialty Start Date End Date Vanessa Mills MD PCP - General Internal Medicine 07/01/13 [address] [facility] [place] [address] documented as of this encounter
--- OUTSIDE RECORDS SUMMARY | 2022-04-16 19:37 | XMS_ITS | Encounter Summary ---
:1955 Author Organization [place] Address [address] [place] [address] Care Team Providers Name Role Phone Vanessa Mills MD Primary Care Provider [phone] Serum, Khadra Radford MD Unavailable [phone] Serum, Khadra Radford MD Unavailable [phone] Reason for Visit Reason Onset Date Comments Refill Request 01/03/2017 Encounter Details Date Type Department Care Team Description 01/03/2017 Refill [facility] Vanessa Mills, [facility]ill [facility] Kerry rai MD 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 Need BP check Also Mycharted pt today with this info/request. documented in this encounter Plan of Treatment Not on filedocumented as of this encounter Visit Diagnoses Diagnosis Essential hypertension - Primary Unspecified essential hypertension Hypertension documented in this encounter Additional Health Concerns Assessment Noted Time PHQ-9 Depression Total Score: 0 03/27/2016 1:53 PM CDT documented as of this encounter Care Teams Food Broker Relationship Specialty Start Date End Date Vanessa Mills MD PCP - General Internal Medicine 07/01/13 [address] [facility] [place] [address] Khadra Thakur MD PCP - Assigned PCP 09/30/16 10/20/18 [facility] [address] [place] [address] [id number] Khadra Thakur MD Assigned PCP 09/30/16 07/10/19 [facility] [address] [place] [address] [id number] documented as of this encounter
--- OUTSIDE RECORDS SUMMARY | 2022-04-16 19:38 | XMS_ITS | Encounter Summary ---
:1955 Author Organization [place] Address [address] [place] [address] Care Team Providers Name Role Phone Angeles Olsen MD Primary Care Provider [phone] Encounter Details Date Type Department Care Team Description 01/03/2010 Orders Only [facility] Angeles Olsen [address] [facility] [place] [address] [facility] [phone] [address] [place], [place] [address] (Wo rk) Social History Tobacco Use Types Packs/Day Years Used Date Never Smoker Alcohol Use Standard Drinks/Week Comments Yes 0 (1 standard drink = 0.6 oz pure alcoho l) 1 glass of wine per week 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 CT SOFT TISSUE NECK W/O CONTRAST Routine 01/03/2010 documented in this encounter Results CT SCAN NECK TISSUE (01/03/2010) Anatomical Region Laterality Modality Other Narrative This result has an attachment that is no t available. Angeles Olsen MD [employer] documented in this encounter Visit Diagnoses Not on filedocumented in this encounter Care Teams Town Marshal Relationship Specialty Start Date End Date Angeles Olsen MD PCP - General 02/26/02 08/28/10 documented as of this encounter
--- OUTSIDE RECORDS SUMMARY | 2022-04-16 19:38 | XMS_ITS | Encounter Summary ---
:1955 Author Organization [facility] Address [address] [place] [address]. [place] [address] Care Team Providers Name Role Phone System, Provider Not In Primary Care Provider Unavailable Encounter Details Date Type Department Care Team Description 12/05/2010 Results Only [facility] Vanessa Rasheed [address] 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 documented in this encounter Results Vitamin D Deficiency (12/05/2010 1:39 PM CDT) Component Value Ref Test Analysis Performed At [facility] Range Method Time Signature 25 [place] Vit D2 <5 ug/L [facility] 25 [place] Vit D3 49 ug/L [facility] 25 [place] Vit D <54 30 - 75 [facility] total Season, race, dietary intake, and treatm ent affect the concentration of ug/L [facility]. Values may decrease during bam er months and increase [facility] during summer months. Values less than 30 ug/L may indicate Vitamin D deficiency. Specimen Anatomical Collection Method Collection Time Receive d Time (Source) Location / / Volume Laterality 12/05/2010 1:39 PM 1 1:40 CDT PM CDT Vanessa Mills MD LAB - BLOOD ORDERABLES Performing Organization Address City/State/ZIP Code Phon e Number [facility] [address] [place] [address] [facility] documented in this encounter Visit Diagnoses Not on filedocumented in this encounter Care Teams Vegetable Thinner Relationship Specialty Start Date End Date System, Provider Not In PCP - General 08/29/10 06/30/13 documented as of this encounter
--- OUTSIDE RECORDS SUMMARY | 2022-04-16 19:38 | XMS_ITS | Encounter Summary ---
:1955 Author Organization [facility] Address [address] [place] [address]. [place] [address] Care Team Providers Name Role Phone Angeles Olsen MD Primary Care Provider [phone] Reason for Visit [facility] (Routine) - Closed Specialty Diagnoses / Procedures Referred By Contact Refer red To Contact Santana Jones DO [facility] [address] [place], [place] [address] Referral ID Status Reason Start Date Expiration Date Visits Requ ested Visits Authorized HP - LEG Closed 09/11/2009 08/17/2010 20 18 Encounter Details Date Type Department Care Team Description 09/27/2009 Therapy Visit [facility] for Cirilo Rey PT Hamstring Muscle Athletic Medicine - [facility] SATYA LE Strain (Primary Dx) [facility] [id number] [facility] [address] [address] [place], [place] [address], [place] [phone] [address] (Work) [phone] Social History Tobacco Use Types Packs/Day Years Used Date Never Smoker Alcohol Use Standard Drinks/Week Comments Yes 0 (1 standard drink = 0.6 oz pure alcoho l) 1 glass of wine per week 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 Date Recorded Female 06/29/2019 1:44 PM RECYCLER documented as of this encounter Plan of Treatment Not on filedocumented as of this encounter Procedures Procedure Name Priority Date/Time Associated Diagnosis Comme nts Z MANUAL THER Routine 09/27/2009 4:02 PM Hamstring Muscle TECH,1+REGIONS,EA 15 MIN RECYCLER Strain ZZC THERAPEUTIC Routine 09/27/2009 4:02 PM Hamstring Muscle EXERCISES RECYCLER Strain ZZC ELECTRIC STIMULATION Routine 09/27/2009 4:02 PM Hamstring Muscle THERAPY RECYCLER Strain documented in this encounter Visit Diagnoses Diagnosis Hamstring muscle strain - Primary Sprain and strain of unspecified site of knee and leg documented in this encounter Care Teams Antique Jewelry Repairer Relationship Specialty Start Date End Date Angeles Olsen MD PCP - General 02/26/02 08/28/10 documented as of this encounter
--- OUTSIDE RECORDS SUMMARY | 2022-04-16 19:38 | XMS_ITS | Encounter Summary ---
:1955 Author Organization [facility] Address [address] [place] [address]. [place] [address] Care Team Providers Name Role Phone System, Provider Not In Primary Care Provider Unavailable Reason for Visit Reason Onset Date Comments Chronic Care Conference Provider Overview 08/29/2010 Encounter Details Date Type Department Care Team Description 08/29/2010 Telephone [facility] Angeles Olsen Chronic Care 14[address] [facility] MD Amara Conference Provider FABIO Marquez [address] [facility] Overview [phone] [address] [place], [place] [address] (Wo rk) Social History Tobacco Use Types Packs/Day Years Used Date Never Smoker Alcohol Use Standard Drinks/Week Comments Yes 0 (1 standard drink = 0.6 oz pure alcoho l) 1 glass of wine per week 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 Date Recorded 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 Please disregard. HANDISER documented in this encounter Plan of Treatment Not on filedocumented as of this encounter Visit Diagnoses Diagnosis ERRONEOUS ENCOUNTER--DISREGARD - Primary documented in this encounter Care Teams Soils Analyst Relationship Specialty Start Date End Date System, Provider Not In PCP - General 08/29/10 06/30/13 documented as of this encounter
--- OUTSIDE RECORDS SUMMARY | 2022-04-16 19:38 | XMS_ITS | Encounter Summary ---
:1955 Author Organization [facility] Address [address] [place] [address] Care Team Providers Name Role Phone System, Provider Not In Primary Care Provider Unavailable Encounter Details Date Type Department Care Team Description 07/18/2011 Office Visit-[facility] Vanessa Mills Condominisuzy Mendez MD [address], [facility] [address] [place] [address] [phone] Social History Tobacco Use Types Packs/Day Years Used Date Never Smoker Alcohol Use Standard Drinks/Week Comments Yes 0 (1 standard drink = 0.6 oz pure alcoho l) 1 glass of wine per week 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 Date Recorded 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 Neeru Stapleton Fax number for Preop Evaluation: [phone] Location of Surgery: [facility] Date of Surgery: 08/05/2011 Procedure: Left thumb reconstruction History of reaction to anesthesia? Yes, Explain: sick when waking up (last sx she had no problem) . Provider Note Valeri is a 55 yo woman with a history of osteoarthritis. She has subluxation of her left thumb which requires surgery. She has no significant pain at this time. She uses plaquenil and Piroxicam daily.She had Right thumb surgery in December 2010 and did very well with that. Valeri has no underlying cardiovascular disease, lung disease, diabetes or hematologic disorders. She has had multiple surgeries in the past. Of note is post op nausea and vomiting. She is sensitive tonarcotics with nausea but tolerates Darvocet or Percocet. Health Mgmt Plan Colonoscopy every 5 years; for HEALTH MAINTENANCE. ROS Constitutional: no fevers, no current illness. Has had concerted 20 pound weight loss since December 2010, using weight watchers and exercise program Eyes: no vision change, diplopia or red eyes, wears glasses Ears, Nose, Mouth, Throat: no tinnitus or hearing change, no epistaxis or nasal discharge, no oral lesions, throat clear Cardiovascular: no chest pain, palpitations Respiratory: no dyspnea, cough, shortness of breath or wheezing GI: no nausea, vomiting, diarrhea or constipation, no abdominal pain : no change in urine, no dysuria or frequency Musculoskeletal: hx of osteoarthritis, left hand pain as above. Integumentary: no concerning lesions or moles Neuro: no loss of strength or sensation, no numbness or tingling, no tremor, no dizziness, no headache Endo: no polyuria or polydipsia, no temperature intolerance, hx of thyroid dx, stable, follows with oceanology teacher. Heme/Lymph: no concerning bumps, no bleeding problems Allergy: no environmental allergies Psych: hx of depression, stable on medication. Pain Eval Current history of pain associated with this visit is as follows: Location: Left thumb Severity: 4 (Pain scale 1-10, with 10 being the worst) . 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 Hull, oceanology teacher Menopause 2002 (627.2) Osteoarthritis 2003 (715.90); followed by rheumatologistAffects,hands, feet, multiple joints. Personal Hx Behavioral history: No tobacco use. Home environment: No secondhand tobacco smoke in home. 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 Immunizations Hepatitis B; 30 Aug 2003 Td; 30 Aug 2003 PPD; 25 Sep 2004 Hepatitis A; 09 Oct 2004 IPV; 09 Oct 2004 Typhoid (Oral); 09 Oct 2004 Hepatitis A; 30 Apr 2005 Typhoid; 22 May 2005 Yellow Fever; 22 May 2005 PPD; 29 Nov 2008. Allergies Ancef SOLR Meperidine Morphine Derivatives. Current Meds Med list offered and patient declined. Levoxyl 175 MCG Tablet;TAKE 1 TABLET DAILY.; RPT Piroxicam 20 MG Capsule;TAKE 1 CAPSULE DAILY.; RPT Plaquenil 200 MG Tablet;TAKE 1 TABLET TWICE DAILY.; RPT FLUoxetine HCl 20 MG Capsule;TAKE 1 CAPSULE DAILY.; Rx AAA-MED RECONCILE;; RPT. Vital Signs Recorded by Allie Keys on 18 Jul 2011 01:59 PM BP:145/88, RUE, Sitting Recorded by Allie Keys on 18 Jul 2011 01:55 PM BP:165/85, RUE, Sitting, HR: 64 b/min, Temp: 98.4 F, Oral, Height: 64 in, Weight: 176 lb, BMI: 30.2 kg/m2, O2 Sat: 99 (%SpO2), RA. Physical Exam Constitutional: no distress, comfortable, pleasant Eyes: anicteric, normal extra-ocular movements Ears, Nose and Throat: tympanic membranes clear, nose clear and free of lesions, throat clear, neck supple with full range of motion, no thyromegaly. Cardiovascular: regular rate and rhythm, normal S1 and S2, no murmurs Respiratory: clear to auscultation, no wheezes or crackles, normal breath sounds Gastrointestinal: positive bowel sounds, nontender, no hepatosplenomegaly, no masses Musculoskeletal: deformity of the left thumb, as above, no redness or swelling. She has thickened MCP joints of the index fingers bilaterally, no redness or swelling Skin: no concerning lesions, no jaundice Neurological: cranial nerves intact, normal strength and sensation, reflexes at patella and biceps normal, normal gait, no tremor Psychological: appropriate mood Lymphatic: no cervical lymphadenopathy Ext: no edema. Results EKG: (01/09/11) NSR, rate 55, no ST-T changes Read by Ronak Mills MD CBC: normal WBC 4.8 with normal differential Hgb: 13.7 Plt 341 Creatinine 0.8. Assessment PREOPERATIVE ASSESSMENT Elective LEFT thumb surgery No contraindication to surgery, low risk patient, low risk procedure. Patient is at low risk for cardiovascular or pulmonary complications during surgery. Labs: Normal CBC and Cr labs from 07/03/11 draw EKG is normal Recommendations: I recommend proceeding with surgery as planned. Vanessa Mills MD Internal medicine/pediatrics. Signature Signed By: Vanessa Mills M.D.; 07/18/2011 5:14 PM FINANCIAL REPORTING ACCOUNTANT. NCIAL REPORTING ACCOUNTANT documented in this encounter Plan of Treatment Not on filedocumented as of this encounter Visit Diagnoses Not on filedocumented in this encounter Care Teams Cloth Mercerizer Back Tender Relationship Specialty Start Date End Date System, Provider Not In PCP - General 08/29/10 06/30/13 documented as of this encounter
--- OUTSIDE RECORDS SUMMARY | 2022-04-16 19:38 | XMS_ITS | Encounter Summary ---
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 encounter Progress Notes Unknown, Provider - 08/01/2011 1:41 PM CST Personnel Analyst: Coco Feldman Status: Final - Signature Encounter: 2011-08-01 13:41:00.000 Type: Telephone Note Recorded as Task Date: 07/30/2011 03:28 PM, Created By: Coco Feldman Task Name: Go to Note Assigned To: Coco Feldman Regarding Patient: VALERI ROJSA, Status: Active Comment: Coco Feldman - 30 Jul 2011 3:28 PM TASK CREATED fy re: pt's blood pressure Vanessa Mills - 31 Jul 2011 11:36 AM TASK REPLIED TO: Previously Assigned To Vanessa Mills I would have her check several times outside clinic (pharmacy), ask her to have dentist, other doctors check bp at routine visits. If it remains elevated x 3 times, she probably needs to see me to start meds. She had lost quite a bit of weight. Continue those efforts, we can recheck in 3-6 mos. Vanessa 08/01/11 Spoke to pt re: above info from Dr Mills. She will check BP periodically and call clinic as needed. She agrees with plan. Electronically signed by:Coco Feldman R.N. Aug 01 2011 1:42PM ROLLER MILL OPERATOR documented in this encounter Plan of Treatment Not on filedocumented as of this encounter Visit Diagnoses Not on filedocumented in this encounter Care Teams Intelligence Operations Specialist Relationship Specialty Start Date End Date System, Provider Not In PCP - General 08/29/10 06/30/13 documented as of this encounter
--- OUTSIDE RECORDS SUMMARY | 2022-04-16 19:38 | XMS_ITS | Encounter Summary ---
:1955 Author Organization [facility] Address [address] [place] [address] Care Team Providers Name Role Phone System, Provider Not In Primary Care Provider Unavailable Reason for Visit Reason Comments Urgent Care Musculoskeletal Problem left foot pain for 4 days. N o known injury. Patient walks regularly. 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 documented as of this encounter Last Filed Vital Signs Vital Sign Reading Time Taken Comments Blood Pressure 166/74 07/29/2011 7:06 PM CARDIOPULMONARY TECHNICIAN Pulse 66 07/29/2011 7:06 PM CARDIOPULMONARY TECHNICIAN Temperature 36.8 ??C (98.2 ??F) 07/29/2011 7:06 PM CARDIOPULMONARY TECHNICIAN Respiratory Rate - - Oxygen Saturation - - Inhaled Oxygen Concentration - - Weight 77.6 kg (171 lb) 07/29/2011 7:06 PM CARDIOPULMONARY TECHNICIAN Height - - Body Mass Index 29.35 09/07/2009 2:23 PM CARDIOPULMONARY TECHNICIAN documented in this encounter Progress Notes Nell Colin MD - 07/29/2011 9:00 PM CST SUBJECTIVE Chief Complaint Patient presents with ??? Urgent Care ??? Musculoskeletal Problem left foot pain for 4 days. No known injury. Patient walks regularly. Valeri Keenan is a 56 year old female who has had a left foot pain that started 4 days ago. No known injury . Symptoms have been gradual, worsening . Prior history of related problems: Osteoarthritis with some rheumatoid features - followed by rheumatology, Has had joint surgery in hands. Past Medical History Diagnosis Date ??? Headache ??? Temporomandibular joint disorders, unspecified ??? Osteoarth NOS-other site 2003 Hands, multiple joints, followed by Rheum ??? Female stress incontinence ??? MEDICAL HISTORY OF - 2002 DEXA normal ??? Other specified menopausal and postmenopausal disorder 2003 On HRT x 9months, then DC ??? Personal history of colonic polyps 04/2005 adenoma ??? Pure hypercholesterolemia 2005 GOAL IS LDL<130 ??? 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, mastectomy Current outpatient prescriptions Medication Sig ??? LEVOTHYROXINE SODIUM 175 MCG OR TABS 1 TABLET DAILY ??? PLAQUENIL 200 MG OR TABS one tablet twice a day ??? FLUOXETINE HCL 20 MG OR TABS ONE DAILY IN THE MORNING ??? VITAMIN D 1000 UNIT OR TABS 1 TABLET DAILY ??? CALCIUM 600 + D 600-200 MG-UNIT OR TABS 1 tablet daily ??? UNKNOWN MED DOSAGE Glucosamine Chondroitin 1500/1200 2 tabs po qd ??? PIROXICAM 20 MG OR CAPS 1 CAPSULE DAILY ??? MULTI-VITAMIN OR TABS 1 tablet daily ??? VITAMIN C 500 MG OR TABS 1 tablet po qd ??? ValACYclovir (VALTREX) 1 GM tablet Take 1 tablet by mouth 3 times daily. History Substance Use Topics ??? Smoking status: Never Smoker ??? Smokeless tobacco: Not on file ??? Alcohol Use: Yes 1 glass of wine per week ROS: INTEGUMENTARY/SKIN: NEGATIVE for worrisome rashes, moles or lesions EYES: NEGATIVE for vision changes or irritation ENT/MOUTH: NEGATIVE for ear, mouth and throat problems RESP:NEGATIVE for significant cough or SOB GI: NEGATIVE for nausea, abdominal pain, heartburn, or change in bowel habits OBJECTIVE: BP 166/74 Pulse 66 Temp 98.2 ??F (36.8 ??C) Wt 171 lb (77.565 kg) Appearance: in no apparent distress and well developed and well nourished. Foot exam: Tender over distal Metatarsals 3-5 , No pain with ROM of toes, Lateral deviation of 3rd and 4th toes, ankle joint is intact and pain free , remainder of foot and ankle exam is normal, ipsilateral knee exam is normal. X-ray: shows DJD changes, especially metatarsal 3 and 4 , chronic, No visible fracture pending review by Radiologist. ASSESSMENT: foot strain metatarsalgia PLAN: Follow-up with podiatry- given card See orders in [facility]. Patient was given recommendations about appropriate footwear to improve pain symptoms Offered vicodin, pt. declined IOPULMONARY TECHNICIAN documented in this encounter Nursing Notes 07/29/2011 6:30 PM CST >> CHIO RODRÍGUEZ Mon Jul 29, 2011 7:09 PM Patient presents with: Urgent Care Musculoskeletal Problem - left foot pain for 4 days. No known injury. Patient walks 3 miles daily. Initial BP 166/74 Pulse 66 Temp 98.2 ??F (36.8 ??C) Wt 171 lb (77.565 kg) Estimated Body mass index is 29.35 kg/(m^2) as calculated from the following: Height as of 09/07/09: 5' 4(1.626 m). Weight as of this encounter: 171 lb(77.565 kg).. BP completed using cuff size: large Yanni RODRÍGUEZ CMA documented in this encounter Plan of Treatment Not on filedocumented as of this encounter Procedures Procedure Name Priority Date/Time Associated Diagnosis Comme nts XR FOOT LEFT G/E 3 Routine 07/29/2011 7:41 PM Foot pain Res ults for this VIEWS CARDIOPULMONARY TECHNICIAN procedure are i n the results section. documented in this encounter Results X-ray lt Foot G/E 3 vws* (07/29/2011 7:41 PM CARDIOPULMONARY TECHNICIAN) Anatomical Region Laterality Modality Foot, Ankle Left Other Specimen (Source) Anatomical Collection Method Collection Time Re ceived Time Location / / Volume Laterality 07/29/2011 7:41 PM CARDIOPULMONARY TECHNICIAN Impressions 07/30/2011 9:34 AM CARDIOPULMONARY TECHNICIAN Three views left foot ?? Jul 29, 2011 7: 41:00 PM ?? HISTORY: ??FOOT PAIN,Is patient ?->Not , hysterectomy, COMPARISON: None. FINDINGS: Advanced degenerative changes second and third metatarsophalangeal joint. Degenerative changes also noted midfoot between the navicular and the cuneiform bones. No acute fractures are identified. IMPRESSION: Degenerative changes as desc ribed. Nell Colin MD IMG DIAGNOSTIC IMAGING ORDER JEN documented in this encounter Visit Diagnoses Diagnosis Foot pain - Primary Pain in limb documented in this encounter Care Teams Certified Legal Secretary Specialist Relationship Specialty Start Date End Date System, Provider Not In PCP - General 08/29/10 06/30/13 documented as of this encounter
--- OUTSIDE RECORDS SUMMARY | 2022-04-16 19:38 | XMS_ITS | Encounter Summary ---
:1955 Author Organization [facility] Address [address] [place] [address]. [place] [address] Care Team Providers Name Role Phone System, Provider Not In Primary Care Provider Unavailable Encounter Details Date Type Department Care Team Description 12/05/2010 Office Visit-[facility] Unknown, Provider [facility] [address] 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 She is not sure if she needs a pap or not. She also has some insurance forms that need to be completed. Provider Note Breast cancer She has a hx of breast cancer, ductal carcinoma in situ of right breast. S/p bilateral mastectomies (right for disease, left as prophylactic measure). She no longer needs mammograms and the oncologist has released her from their care. OSTEOARTHRITIS She sees a factorer for hand and foot arthritis. She is on Plaquenil and Piroxicam. She sees an eye doctor q 6 months and notes no change in vision. Her feet have become more painful, both at rest and with walking, limiting her exercise. She has gained weight due to more sedentary lifestyle. Shehas orthotics that are 10yrs old. Recent visit to activities coordinator--he told her no need for replacement oforthotics. HYPOTHYROIDISM She follows with Dr. Hull for endocrinology. She will see him this summer. HCM Vaginal hysterectomy with oophorectomy 2002 for fibroids + some abnormal cells. She had previouslyfollowed with sample hand doctor who told her to have pap every 2-3 yrs. She would like me to do that forher today. She is up to date on colonoscopy, goes every 5 yrs for hx of adenomatous polyp. Hx of chronic constipation, no changes there. As above, no need for mammogram. Health Mgmt Plan Colonoscopy every 5 years; for HEALTH MAINTENANCE. ROS Constitutional: no fevers, night sweats, Weight gain of 10 pounds in past year Eyes: no vision change, diplopia or red eyes, sees eye doctor q 6 mos Ears, Nose, Mouth, Throat: no tinnitus or hearing change, no epistaxis or nasal discharge, no oral lesions, throat clear Cardiovascular: no chest pain, or leg edema. Occasional palpitations, no associated dizziness or chest pain Respiratory: no dyspnea, cough, shortness of breath or wheezing GI: chronic constipation, lots of burping, denies heartburn. 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 Denies vasomotor sx Musculoskeletal:As above, hand and foot pain. Will need thumb joint replaced on right hand due to deformity. Integumentary: no concerning lesions or moles Neuro: no loss of strength or sensation, no numbness or tingling, no tremor, no dizziness, no headache Endo: Hypothyroidism, followed by hand cementer. Heme/Lymph: no concerning bumps, no bleeding problems Allergy: no environmental allergies Psych: Depression, stable on medications. Pain Eval Current history of pain associated with this visit is denied. Active Problems Benign Adenomatous Polyp Of The Large Intestine 2004 (211.3); repeat test in 2009 for adenoma Breast Cancer 2006 (174.9); ductal carcinoma in situ Chronic Major Depression (296.30) Female Stress Incontinence (625.6) Headache (784.0) Hypothyroidism (244.9); followed by Dr. Hull, hand cementer Menopause 2002 (627.2) Osteoarthritis 2003 (715.90); followed by rheumatologistAffects,hands, feet, multiple joints. PSH Appendectomy Breast Surgery Mastectomy 2006 (V45.71); Right side for ductal ca in situ 03/2007, Left prophylactic 03/2007 with reconstruction Complete Colonoscopy 2007; return in 5yrs., hx of adenomatous polyps Decompression Of Median Nerve At Carpal Tunnel Foot Surgery; right 2nd toe surgery Laparoscopy With Vaginal Hysterectomy 2002; for fibroids, ovaries removed, on HRT x 10 mos, then d/c Thyroid Surgery Total Thyroidectomy 2006. Family Hx Family history of Breast Cancer; ductal carcinoma in situ Family history of Chronic Major Depression Family history of Constipation Family history of Coronary Artery Disease; father, age 53, age 58 Family history of Headache Family history of Hyperlipidemia; LDL goal <130 Family history of Hypertension; mother, brother Family history of Hypothyroidism; followed by hand cementer, Dr. Hull Family history of Menopause Family history of Osteoarthritis; mother Family history of Parkinson's Disease; brother. Personal Hx Behavioral history: No tobacco use. Home environment: No secondhand tobacco smoke in home. , 2 children Works for [employer], sedentary job. Nonsmoker Etoh: 2/week Caffeine 2/day Calcium: supplement 1200mg per day + 2/day Exercise : No formal program. Immunizations Hepatitis B; 30 Aug 2003 Td; [...] MG Tablet;TAKE 1 TABLET TWICE DAILY.; RPT Doxycycline Monohydrate 100 MG Capsule;TAKE 1 TAB STARTING 2 DAYS PRIOR TO TRAVEL AND THEN DAILY WHILE TRAVELLING AND FOR 4 WEEKS AFTER TRAVEL; Rx AAA-MED RECONCILE;; RPT FLUoxetine HCl 20 MG Capsule;TAKE 1 CAPSULE DAILY.; Rx. Vital Signs Recorded by Adelina Woodson on 05 Dec 2010 12:51 PM BP:134/82, RUE, Sitting, HR: 64 b/min, Height: 64.5 in, Weight: 193.12 lb, BMI: 32.6 kg/m2. Physical Exam Constitutional: no distress, comfortable, pleasant Eyes: anicteric, normal extra-ocular movements Ears, Nose and Throat: tympanic membranes clear, nose clear and free of lesions, throat clear, neck supple with full range of motion, no thyromegaly. Well healed incision at anterior neck. Cardiovascular: regular rate and rhythm, normal S1 and S2, no murmurs Respiratory: clear to auscultation, no wheezes or crackles, normal breath sounds Gastrointestinal: positive bowel sounds, nontender, no hepatosplenomegaly, no masses Gentiourinary: normal external genitalia, Atrophic mucosa, pap taken from vaginal cuff. Mucosa appears normal without lesions, no masses. Bimanual exam deferred, ovaries have been removed. Musculoskeletal: deformity of right thumb, subluxed proximal phalanx, fixed. No redness or warmth. Feet with 2nd and 3rd toe deformity, angulation. No subluxation. Skin: scaly, nonpigmented ridge of skin on right upper back, likely eczema or SK Breast:Impants bilaterally. No overlying skin changes or masses at periphery. No axillary adenopathy. Neurological: cranial nerves intact, normal strength and sensation, reflexes at patella and biceps normal, normal gait, no tremor Psychological: appropriate mood Lymphatic: no cervical lymphadenopathy Ext: no edema. Pulses strong/equal PHQ 9 inventory score = 3. Assessment GENERAL CHECK UP Anticipatory guidance given today regarding diet, exercise (limited by foot pain) and calcium intake. Hold on DEXA till age 59. Other colonoscopy up to date. No need for mammogram. Routine pap is sent.Immunizations are up to date. She is going to try weight watcher for weight loss. Goal is 1-2 poundsper month, consistent changes in eating habits and exercise plan. Forms completed for insurance OSTEOARTHRITIS Hands and feet. Continue current meds. Will have thumb joint replacement next month and will return for pre op. For foot pain, suggest second opinion with second activities coordinator to see if new orthotics would help. Refer to [facility] [place] with Dr. Catracho Jaramillo. HYPOTHYROIDISM Follow up [facility] hand cementer. BREAST CANCER Stable, in remission. Discussed checking for rashes, masses around periphery of implants. MAJOR DEPRESSION Doing well, mood stable, Refilled medication for one year. Vanessa Mills MD Internal medicine/pediatrics. Signature Signed By: Adelina Woodson ; 12/05/2010 12:53 PM TEACHER LIP READING. Signed By: Vanessa Mills M.D.; 12/05/2010 5:21 PM TEACHER LIP READING. Signed By: Vanessa Mills M.D.; 12/05/2010 5:23 PM TEACHER LIP READING. documented in this encounter Plan of Treatment Not on filedocumented as of this encounter Visit Diagnoses Not on filedocumented in this encounter Care Teams Corporate Bond Trader Relationship Specialty Start Date End Date System, Provider Not In PCP - General 08/29/10 06/30/13 documented as of this encounter
--- OUTSIDE RECORDS SUMMARY | 2022-04-16 19:38 | XMS_ITS | Encounter Summary ---
:1955 Author Organization [facility] Address [address] [place] [address]. [place] [address] Care Team Providers Name Role Phone Angeles Olsen MD Primary Care Provider [phone] Reason for Visit [facility] (Routine) - Closed Specialty Diagnoses / Procedures Referred By Contact Refer red To Contact Santana Jones DO [facility] [address] [place], [place] [address] Referral ID Status Reason Start Date Expiration Date Visits Requ ested Visits Authorized HP - LEG Closed 09/11/2009 08/17/2010 20 18 Encounter Details Date Type Department Care Team Description 09/14/2009 Therapy Visit [facility] for Jasmin Florez PTA Hamstring Muscle Athletic Medicine - [address] (Primary Dx) [place] [facility] Therapy [place], [place] [id number] [place] [id number] [address] [place], [place] (Work) [address] Social History Tobacco Use Types Packs/Day Years Used Date Never Smoker Alcohol Use Standard Drinks/Week Comments Yes 0 (1 standard drink = 0.6 oz pure alcoho l) 1 glass of wine per week 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 Date Recorded 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 Does this patient have Medicare or Medicaid as primary or secondary insurance? NO E LINER Jasmin Florez - 09/14/2009 1:58 PM CST Subjective: HPI Objective: System Physical Exam General ROS Assessment/Plan: E LINER documented in this encounter Plan of Treatment Not on filedocumented as of this encounter Procedures Procedure Name Priority Date/Time Associated Diagnosis Comme nts ZZC THERAPEUTIC Routine 09/14/2009 2:27 PM Hamstring Muscle EXERCISES CRATE LINER Strain ZZC ELECTRICAL Routine 09/14/2009 2:27 PM Hamstring Muscle STIMULATION CRATE LINER Strain ZC HOT OR COLD PACKS Routine 09/14/2009 2:27 PM Hamstring Mus maria t THERAPY CRATE LINER Strain documented in this encounter Visit Diagnoses Diagnosis Hamstring muscle strain - Primary Sprain and strain of unspecified site of knee and leg documented in this encounter Care Teams Clinical Education Assistant Relationship Specialty Start Date End Date Angeles Olsen MD PCP - General 02/26/02 08/28/10 documented as of this encounter
--- OUTSIDE RECORDS SUMMARY | 2022-04-16 19:38 | XMS_ITS | Encounter Summary ---
:1955 Author Organization [facility] Address [address] [place] [address] Care Team Providers Name Role Phone Vanessa Mills MD Primary Care Provider [phone] Reason for Referral Nutrition - Closed Specialty Diagnoses / Procedures Referred By Contact Refer red To Contact Diagnoses Obesity Vanessa Mills MD [address] [place] [address] Referral ID Status Reason Start Date Expiration Date Visits Requ ested Visits Authorized [id number] Closed 11/23/2013 05/22/2014 1 1 Encounter Details Date Type Department Care Team Description 11/23/2013 Orders Only [facility] Vanessa Mills Obesity (Primary Dx) [facility] MD Vanessa Building [address] [place] [address] [id number] [place] [id number] [phone] Social History Tobacco Use Types Packs/Day Years Used Date Never Smoker Smokeless Tobacco: Never Used Alcohol Use Standard Drinks/Week Comments Yes 0 (1 standard drink = 0.6 oz pure alcoho l) 1 glass of wine per week 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 Date Recorded 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
--- OUTSIDE RECORDS SUMMARY | 2022-04-16 19:38 | XMS_ITS | Encounter Summary ---
:1955 Author Organization [facility] Address [address] [place] [address] Care Team Providers Name Role Phone System, Provider Not In Primary Care Provider Unavailable Reason for Referral - Closed Specialty Diagnoses / Procedures Referred By Contact Refer red To Contact Diagnoses Family history of Parkinson's disease Vanessa Mills MD [address] [place] [address] Referral ID Status Reason Start Date Expiration Date Visits Requ ested Visits Authorized [id number] Closed 05/19/2013 11/15/2013 1 1 Reason for Visit Reason Comments Pre-Op Exam Encounter Details Date Type Department Care Team Description 05/19/2013 Office Visit 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 Last Filed Vital Signs Vital Sign Reading Time Taken Comments Blood Pressure 151/83 05/19/2013 1:45 PM CDT Pulse 67 05/19/2013 1:45 PM CDT Temperature 36.7 ??C (98 ??F) 05/19/2013 1:45 PM CDT Respiratory Rate - - Oxygen Saturation 99% 05/19/2013 1:45 PM CDT Inhaled Oxygen Concentration - - Weight 79.8 kg (176 lb) 05/19/2013 1:45 PM CDT Height 162.3 cm (5' 3.9) 05/19/2013 1:45 PM CDT Body Mass Index 30.3 05/19/2013 1:45 PM CDT documented in this encounter Progress Notes Vanessa Mills MD - 05/19/2013 1:46 PM CDT [address] [place] [address] PRE-OP EVALUATION: Today's date: 05/19/2013 Valeri Keenan (: 1955) presents for pre-operative evaluation assessment as requested by Dr. Deras. She requires evaluation and anesthesia risk assessment prior to undergoing surgery/procedure for treatment of Arthritis of the left foot. Proposed procedure: Left Foot surgery, pinning of 2nd and 3rd digit and fusion of anterior foot. Date of Surgery/ Procedure: 05-28-2013 Time of Surgery/ Procedure: 6:00 a.m. Hospital/Surgical Facility: [facility] Fax number for surgical facility: [phone] Primary Physician: Dr. Vanessa Mills Type of Anesthesia Anticipated: to be determined. Local. History of anesthesia complications: NONE and YES: Personal HX Pt gets nauseas and dizziness. History of abnormal bleeding: NONE History of blood transfusions: NO Patient has a Health Care Directive or Living Will: NO HPI: Preop Valeri has a history of arthritis. She has left foot pain and thinks she may have had a stress fracture last year. She has persistent foot pain and has gone for corticosteroid injections every 8 wks for the past year. Pain is worse with walking. The plan is to pin the second and third toes of the leftfoot and to fuse the anterior left foot. No redness or swelling reported. She has been taking piroxicam and ES tylenol for pain management. she is also on Plaquenil and is asking if she needs to stop that before surgery. She will stop her aspirin today and any vitamin supplements she is taking. She has had multiple surgeries, complicated by nausea with the anesthesia. She had one episode of bleeding when heparin was given after mastectomy but no other history bleeding or clotting disorders. Her health has otherwise been stable. HTN She has a hx of HTN and takes HCTZ. Her blood pressure is elevated today but it was coming down before she left the clinic to 146/84. She has no known heart disease or arrythmias. Hypothyroidism She takes levothyroxine and is checked by dragline mechanic regularly. Her last check was in February and she remains on the same dose. Patient Active Problem List Diagnosis Date Noted ??? Hypertension 01/13/2013 ??? Major depression, chronic 01/13/2013 ? ? HYPERLIPIDEMIA LDL GOAL <130 09/27/2009 ??? Constipation 02/15/2009 ??? DUCTAL CARCINOMA IN SITU Right side, mastectomy ??? OBESITY NOS 04/11/2006 ??? HYPOTHYROIDISM NOS 04/10/2006 ??? iamLUMBAGO 11/26/2005 ??? HEADACHE 09/27/2004 ??? OSTEOARTHROS NOS-OTHER SITE 09/27/2004 Hands, multiple joints, followed by Rheum ??? FEMALE STRESS INCONTINENCE 09/27/2004 ??? MENOPAUSAL DISORDER NEC 09/27/2004 On HRT x 9months, then DC Past Medical History Diagnosis Date ??? Headache ??? Temporomandibular joint disorders, unspecified ??? Osteoarthrosis, unspecified whether generalized or localized, other specified sites 2003 Hands, multiple joints, followed by Rheum ??? Female stress incontinence ??? MEDICAL HISTORY OF - 2003 DEXA normal ??? Other specified menopausal and postmenopausal disorder 2003 On HRT x 9months, then DC ??? Personal history of colonic polyps 04/2005 adenoma ??? Pure hypercholesterolemia 2006 GOAL IS LDL<130 ??? 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 Carpal tunnel syndrome 12/05/10 ??? Depression 12/25/09 ??? Hypothyroidism 12/25/09 ??? Headache 12/05/10 ??? Osteoarthritis 12/05/10 followed by informatics spec; Affects hands, feet, multiple joints Past Surgical History Procedure Date ??? C appendectomy ??? C nonspecific procedure RIGHT 2ND TOE SURGERY ??? C vag hyst,rmv tube/ovary 08/2002 Fibroids, on HRT x 10 months, then D/C ??? C mastectomy, simple, complete 03/2007 right with carcinoma, left prophylactic ??? C thyroidectomy 07/2007 total thyroidectomy ??? Colonoscopy 2007 due 2012 ??? Carpal tunnel release rt/lt Current Outpatient Prescriptions Medication Sig ??? FLUoxetine (PROZAC) 40 MG capsule Take 1 capsule by mouth daily. ??? hydrochlorothiazide (HYDRODIURIL) 25 MG tablet Take 1 tablet by mouth daily. ??? LEVOTHYROXINE SODIUM 175 MCG OR TABS [...] MG OR TABS 1 tablet po qd OTC products: None, except as noted above Allergies Allergen Reactions ??? Ancef (Cefazolin Sodium) Rash ??? Meperidine nausea ??? Morphine Nausea and dizziness Latex Allergy: NO History Substance Use Topics ??? Smoking status: Never Smoker ??? Smokeless tobacco: Never Used ??? Alcohol Use: Yes 1 glass of wine per week History Drug Use No REVIEW OF SYSTEMS: C: NEGATIVE for fever, chills,no recent illness E/M: NEGATIVE for ear, mouth and throat problems R: NEGATIVE for significant cough or SOB CV: NEGATIVE for chest pain, palpitations or peripheral edema GI:no abdominal pain, no constipation or diarrhea. : no dysuria or signs of UTI Ext: no edema MS: arthritic joints, hands and feet, no red joints today. EXAM: BP 151/83 Pulse 67 Temp 98 ??F (36.7 ??C) (Oral) Ht 5' 3.9 (162.3 cm) Wt 176 lb (79.833 kg) BMI 30.30 kg/m2 SpO2 99% ? No GENERAL APPEARANCE: healthy, alert and no distress [...] grossly normal, mentation intact and speech normal Ext: no edema MS: widening of web space between second and third toe on left foot DIAGNOSTICS: Preop Testing EKG: appears normal, NSR Rate is 63. Nonspecific intraatrial conduction delay. normal axis, normal intervals, no acute ST/T changes c/w ischemia, no LVH by voltage criteria, . Read by Vanessa Mills MD Internal Medicine/Pediatrics IMPRESSION: V72.84 Pre-operative examination (primary encounter diagnosis) Comment: elective left foot surgery for arthritic changes. Plan: EKG 12-lead complete w/read - Clinics, Basic Metabolic Panel (Antimony), CBC with platelets No contraindication to surgery. Stop aspirin and herbal/vitamin supplements now. OK to continue piroxicam until 3 days prior to surgery. OK to continue plaquenil until surgery per Up to Date guidelines. Attention to post procedure nausea is appreciated. Valeri will not be taking her HCTZ prior to surgery. If needed, she may have labetalol 5mg IV dose if needed for hypertension. The proposed surgical procedure is considered LOW risk. For above listed surgery and anesthesia: Patient is at MODERATE risk for surgery/procedure and perioperative/procedure complications. RECOMMENDATIONS: --Approval given to proceed with proposed procedure, without further diagnostic evaluation. Signed Electronically by: Vanessa Mills MD Copy of this evaluation report is provided to requesting physician. Preop Guidelines documented in this encounter Nursing Notes 05/19/2013 1:40 PM CDT >> MARY ONEILL CMA FriMay 19, 2013 1:46 PM 58 year old Patient presents with: Pre-Op Exam Blood pressure 151/83, pulse 67, temperature 98 ??F (36.7 ??C), temperature source Oral, height 5' 3.9 (162.3 cm), weight 176 lb (79.833 kg), SpO2 99.00%, not currently . Body mass index is 30.30 kg/(m^2). Patient Active Problem List: HEADACHE OSTEOARTHROS NOS-OTHER SITE FEMALE STRESS INCONTINENCE MENOPAUSAL DISORDER NEC iamLUMBAGO HYPOTHYROIDISM NOS OBESITY NOS DUCTAL CARCINOMA IN SITU Constipation HYPERLIPIDEMIA LDL GOAL <130 Hypertension Major depression, chronic Current Outpatient Prescriptions: FLUoxetine (PROZAC) 40 MG capsule, Take 1 capsule by mouth daily. hydrochlorothiazide (HYDRODIURIL) 25 MG tablet, Take 1 tablet by mouth daily. LEVOTHYROXINE SODIUM 175 MCG OR TABS, 1 TABLET DAILY PLAQUENIL 200 MG OR TABS, one tablet twice a day FLUOXETINE HCL 20 MG OR TABS, ONE DAILY IN THE MORNING VITAMIN D 1000 UNIT OR TABS, 1 TABLET DAILY CALCIUM 600 + D 600-200 MG-UNIT OR TABS, 1 tablet daily UNKNOWN MED DOSAGE, Glucosamine Chondroitin 1500/1200 2 tabs po qd PIROXICAM 20 MG OR CAPS, 1 CAPSULE DAILY MULTI-VITAMIN OR TABS, 1 tablet daily VITAMIN C 500 MG OR TABS, 1 tablet po qd Smoking Status: Never Smoker Smokeless Status: Never Used Alcohol Use: Yes Comment: 1 glass of wine per week Advance Directive Planning Q5 Yrs (No Inbasket) due on 1972 Tsh Q1 Year (No Inbasket) due on 11/23/2008 Influenza Vaccine (System Assigned) due on 05/18/2013 MARY ONEILL CMA May 19, 2013, 1:46 PM documented in this encounter Plan of Treatment Scheduled Referrals Name Type Priority Associated Diagnoses Order S chedule Neurology Adult Referral Referral Routine Family history o f Ordered: 05/19/2013 - [facility] [place] documented as of this encounter Procedures Procedure Name Priority Date/Time Associated Diagnosis Comme nts CBC WITH PLATELETS Routine 05/19/2013 2:40 PM Pre-operative Re sults for this CDT examination procedure are i n the results section. BASIC METABOLIC Routine 05/19/2013 2:35 PM Pre-operative Resul ts for this PANEL ([facility]) CDT examination procedure are in the results section. EKG 12-LEAD Routine 05/19/2013 Pre-operative COMPLETE W/READ - examination CLINICS documented in this encounter Results CBC with platelets (05/19/2013 2:40 PM CDT) athologist Signature WBC 4.5 4.0 - 11.0 [facility] 10e9/L [facility] RBC Count 4.40 3.8 - 5.2 [facility] 10e12/L [facility] Hemoglobin 13.4 11.7 - [facility] 15.7 g/dL [facility] Hematocrit 40.5 35.0 - [facility] 47.0 % [facility] MCV 92 78 - 100 [facility] fl [facility] MCH 30.5 26.5 - [facility] 33.0 pg [facility]AMPUS [facility] MCHC 33.1 31.5 - [facility] 36.5 g/dL [facility] RDW 13.1 10.0 - [facility] 15.0 % [facility] Platelet Count 269 150 - 450 [facility] 10e9/L [facility] Specimen Anatomical Collection Method Collection Time Receive d Time (Source) Location / / Volume Laterality Blood specimen 05/19/2013 2:40 PM 013 2:41 (specimen) CDT PM CDT Vanessa Mills MD LAB - BLOOD ORDERABLES Performing Organization Address City/State/Z[place] [address] [facility] (ABNORMAL) Basic Metabolic Panel (Ant[place]) (05/19/2013 2:35 PM CDT) athologist Signature Glucose 102.0 60.0 - [facility] 109.0 [facility] mg/dL Urea Nitrogen 17.0 7.0 - 30.0 [facility] mg/dL [facility] Calcium 9.3 8.5 - 10.4 [facility] mg/dL [facility] Creatinine 0.5 (L) 0.6 - 1.3 [place] mg/dL [facility] eGFR Calculated 134.2 >60.0 [place] (Non Black [facility] LAB Reference) eGFR Calculated 162.4 >60.0 [place] (Black [facility] Reference) Sodium 140.0 133.0 - [place] 144.0 [facility] mmol/L Potassium 4.2 3.4 - 5.3 [place] mmol/L [facility] Chloride 98.0 94.0 - [place] 109.0 [facility] mmol/L Carbon Dioxide 30.0 20.0 - [place] 32.0 [facility] mmol/L Specimen Anatomical Collection Method Collection Time Receive d Time (Source) Location / / Volume Laterality Blood specimen 05/19/2013 2:35 PM 013 2:36 (specimen) CDT PM CDT Vanessa Mills MD LAB - LABDAQ Performing Organization Address City/State/ZIP Code Phon e Number [facility] [address] [place], [place] [address] [address] [facility] [address] [place] [address]. [place] [id number] A EKG 12-lead complete w/read - Clinics (05/19/2013) Narrative This result has an attachment that is no t available. Vanessa Mills MD ECG ORDERABLES documented in this encounter Visit Diagnoses Diagnosis Pre-operative examination - Primary Preoperative examination, unspecified Family history of Parkinson's disease Family history of other neurological dis eases documented in this encounter Care Teams Brand Planner Relationship Specialty Start Date End Date System, Provider Not In PCP - General 08/29/10 06/30/13 documented as of this encounter
--- OUTSIDE RECORDS SUMMARY | 2022-04-16 19:38 | XMS_ITS | Encounter Summary ---
:1955 Author Organization [facility] Address [address] [place] [address]. [place] [address] Care Team Providers Name Role Phone System, Provider Not In Primary Care Provider Unavailable Encounter Details Date Type Department Care Team Description 12/05/[address] [facility] Vanessa Rasheed [facility] [place] [address] [place] [address] [place] [address] (Wo rk) Social History Tobacco Use Types Packs/Day Years Used Date Never Smoker Alcohol Use Standard Drinks/Week Comments Yes 0 (1 standard drink = 0.6 oz pure alcoho l) 1 glass of wine per week 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 Date Recorded Female 06/29/2019 1:44 PM [employer] documented as of this encounter Plan of Treatment Not on filedocumented as of this encounter Procedures Procedure Name Priority Date/Time Associated Comments Diagnosis COMPREHENSIVE Routine 12/05/2010 1:39 PM Results for this METABOLIC PANEL CDT procedure ar e in the results section. documented in this encounter Results Comprehensive metabolic panel (12/05/2010 1:39 PM CDT) P athologist Signature Sodium 144 133 - 144 [facility] mmol/L [facility] Potassium 4.3 3.4 - 5.3 [facility] mmol/L [facility] Chloride 103 94 - 109 [facility] mmol/L [facility] Carbon Dioxide 29 20 - 32 [facility] mmol/L [facility] Anion Gap 12 6 - 17 [facility] mmol/L [facility] Glucose 83 60 - 99 [facility] mg/dL [facility] Urea Nitrogen 17 7 - 30 [facility] mg/dL [facility] Creatinine 0.77 0.52 - [facility] 1.04 mg/dL [facility] GFR Estimate 78 >60 [facility] mL/min/1.7 [place] m2 [facility] GFR Estimate If >90 >60 [facility] Black mL/min/1.7 [place] [address] [facility] Calcium 9.7 8.5 - 10.4 [facility] mg/dL [facility] Bilirubin Total 0.2 0.2 - 1.3 [facility] mg/dL [facility] Albumin 4.8 3.3 - 4.9 [facility] g/dL [facility] Protein Total 8.1 6.8 - 8.8 [facility] g/dL [facility] Alkaline 66 40 - 150 [facility] Phosphatase U/L [facility] ALT 40 0 - 50 U/L [facility] AST 36 0 - 45 U/L [facility] Specimen Anatomical Collection Method Collection Time Receive d Time (Source) Location / / Volume Laterality 12/05/2010 1:39 PM 1 1:40 CDT PM CDT Vanessa Mills MD LAB - BLOOD ORDERABLES Performing Organization Address City/State/ZIP Code Phon e Number [facility] [address] [place], [place] [phone] [place], [place] [address] [facility] documented in this encounter Visit Diagnoses Not on filedocumented in this encounter Care Teams Coating Technician Relationship Specialty Start Date End Date System, Provider Not In PCP - General 08/29/10 06/30/13 documented as of this encounter
--- OUTSIDE RECORDS SUMMARY | 2022-04-16 19:38 | XMS_ITS | Encounter Summary ---
:1955 Author Organization [place] Address [address] [place] [id number] Care Team Providers Name Role Phone System, Provider Not In Primary Care Provider Unavailable Reason for Referral - Closed Specialty Diagnoses / Procedures Referred By Contact Refer red To Contact Diagnoses Routine general medical examination at a health care facility Vanessa Mills MD [facility] [[email or web address] [place], [place] [address] Referral ID Status Reason Start Date Expiration Date Visits Requ ested Visits Authorized [id number] Closed 01/13/2013 07/12/2013 1 1 Reason for Visit Reason Comments Physical Insurance Wellness Check for 's employer Previsit Due for Tdap, DEXA, TSH and colonoscopy Encounter Details Date Type Department Care Team Description 01/13/2013 Office Visit [facility] Vanessa Mills Routine general medical exam ination at a health care facility (Primary Dx); Phill Mendez MD HYPOTHYROIDISM NOS; Building [address] [place] DUCTAL CARCINOMA IN SITU; 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 Last Filed Vital Signs Vital Sign Reading Time Taken Comments Blood Pressure 149/76 01/13/2013 10:16 AM CDT Pulse 61 01/13/2013 10:16 AM CDT Temperature 36.6 ??C (97.8 ??F) 01/13/2013 10:16 AM CDT Respiratory Rate - - Oxygen Saturation 100% 01/13/2013 10:16 AM CDT Inhaled Oxygen Concentration - - Weight 77.1 kg (170 lb) 01/13/2013 10:16 AM CDT Height 162.6 cm (5' 4) 01/13/2013 10:16 AM CDT Body Mass Index 29.18 01/13/2013 10:16 AM CDT documented in this encounter Patient Instructions Patient InstructionsVanessa Mills MD - 01/13/2013 11:14 AM CDT Debrox ear drops to soften the wax , buy over the counter Irrigate with a blue bulb, USE WARM WATER Dose change on Fluoxetine [facility] [phone] Bone density at [facility] Blood pressure medication, HCTZ 25mg in the morning. documented in this encounter Progress Notes Vanessa Mills MD - 01/13/2013 10:23 AM CDT Valeri Keenan is here for a general check up. She is fasting. She brings in a form for health screening. She is up to date on eye exams, dental visits, and pap. She is due for colonoscopy, has hx of polyps. No longer needs mammogram, has bilateral breast implants after hx of mastectomy. Other concerns today: Hypothyroidism She sees Dr. Hull for yearly exams. She will see him in February. ELEVATED BP Valeri has noted her BP is running high, in the 140s. She does not have a home BP cuff, just notes elevated pressures, especially Situational stress Her mother in July 2012. Within 2 wks of her her mother in law . Valeri is the executor of her estate and has been busy with taking care of her mother's affairs. She is still grieving as she was very close to her mother. She is going to counseling. She is currently on fluoxetine 20mg daily. She would like to increase her dose to help with coping. She also has 2 dogs that she needs to give up. Her arthritis keeps her from walking them and caring for them. Health Maintenance Topic Date Due ??? Advance Directive Planning Q5 Yrs (No Inbasket) 1972 ??? Tsh Q1 Year (No Inbasket) 11/23/2008 ??? Dexa Q3 Yr 04/10/2009 ??? Colonoscopy Q5 Yr Inbasket Message 04/29/2013 ??? Influenza Vaccine (System Assigned) 05/18/2013 ??? Tetanus Q10 Yr 08/30/2013 ??? Pap Q3 Yr No Inb Msg 12/05/2013 ??? Lipid Monitoring Q5 Years (No Inbasket) 01/07/2017 Patient Active Problem List Diagnosis ??? HEADACHE ??? OSTEOARTHROS NOS-OTHER SITE ??? FEMALE STRESS INCONTINENCE ??? MENOPAUSAL DISORDER NEC ??? iamLUMBAGO ??? HYPOTHYROIDISM NOS ??? OBESITY NOS ??? DUCTAL CARCINOMA IN SITU ??? Constipation ? ? HYPERLIPIDEMIA LDL GOAL <130 ??? Hypertension ??? Major depression, chronic Past Surgical History Procedure Date ??? C appendectomy ??? C nonspecific procedure RIGHT 2ND TOE SURGERY ??? C vag hyst,rmv tube/ovary 08/2002 Fibroids, on HRT x 10 months, then D/C ??? C mastectomy, simple, complete 03/2007 right with carcinoma, left prophylactic ??? C thyroidectomy 07/2007 total thyroidectomy ??? Colonoscopy 2007 due 2012 ??? Carpal tunnel release rt/lt Family History Problem Relation Age of Onset ??? C.A.D. Father CT [address], at 58 ??? Neurological Father Parkinsons ??? Neurological Mother headaches ??? Arthritis Mother DJD ??? Hypertension Mother ??? Hypertension Brother Two brothers with HTN ??? Stroke Maternal Grandmother ??? Circulatory Paternal Grandmother Brain Aneurysm ??? Breast CA No family hx of ??? Colon CA No family hx of ??? Osteoporosis Mother ??? Osteoporosis Paternal Grandmother ??? Cancer Other niece wtih squamous cell ca of tongue, age 42, nonsmoker/no Etoh ??? Prostatic CA Brother ??? 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 Patient has had a hysterectomy. Hx abnormal pap? none STD hx? none Vasomotor sx: none G 3 P 2 A 1 Self Breast exam: Implants s/p hysterectomy Current Outpatient Prescriptions Medication Sig ??? LEVOTHYROXINE SODIUM 175 MCG [...] po qd Allergies Allergen Reactions ??? Ancef (Cefazolin Sodium) Rash ??? Meperidine nausea ??? Morphine Nausea and dizziness ROS CONSTITUTIONAL:NEGATIVE for fever, chills, change in weight INTEGUMENTARY/SKIN: NEGATIVE for worrisome rashes, moles or lesions EYES: NEGATIVE for vision changes or irritation, sees eye doctor regularly, on plaquenil ENT/MOUTH: NEGATIVE for ear, mouth and throat problems RESP:NEGATIVE for significant cough or SOB BREAST: NEGATIVE for masses, tenderness or discharge CV: NEGATIVE for chest pain, palpitations, ALLAN, orthopnea, PND or peripheral edema Elevated blood pressure GI: NEGATIVE for nausea, abdominal pain, heartburn, or change in bowel habits :NEGATIVE for frequency, dysuria, or hematuria MUSCULOSKELETAL:hx of osteoarthritis and rheumatoid arthritis NEURO: NEGATIVE for weakness, dizziness or paresthesias ENDOCRINE: NEGATIVE for polyuria/dipsia, temperature intolerance, skin/hair changes HEME/ALLERGY/IMMUNE: NEGATIVE for bleeding problems PSYCHIATRIC: positive for adjustment disorder, see above EXAM BP 149/76 Pulse 61 Temp 97.8 ??F (36.6 ??C) (Oral) Ht 5' 4 (162.6 cm) Wt 170 lb (77.111 kg) BMI 29.18 kg/m2 SpO2 100% GENERAL APPEARANCE: Alert, pleasant, NAD EYES: PERRL, EOMI, conjunctiva clear HENT: TM normal bilaterally. Nose and mouth without lesions NECK: no adenopathy, thyroid absent, well healed incision RESP: lungs clear to auscultation bilaterally BREAST: Implants bilaterally after bilateral mastectomies. No overlying skin changes, no axillary adenopathy. CV: regular rate and rhythm, normal S1 S2, no murmur, no carotid bruits ABDOMEN: soft, nontender, without HSM or masses. Bowel sounds normal : deferred RECTAL EXAM: deferred MS: disfigured hands due to arthritis, no active redness warmth or swelling. Right ankle with swelling at the lateral malleolus but no tenderness, redness or warmth SKIN: no suspicious lesions or rashes NEURO: Normal strength and tone, sensory exam grossly normal, DTR normoreflexive in upper and lower extremities PSYCH: mentation appears normal. and affect normal/bright. EXT: localized edema at the right lateral malleolus, no redness, warmth or pain Assessment: V70.0 Routine general medical examination at a health care facility (primary encounter diagnosis) Comment: Healthy woman, multiple medical problems stable Plan: Lipid Panel ([place]), Comprehensive Metabolic Panel ([place]), CBC with platelets, Vitamin D Deficiency, Dexa hip/pelvis/spine*, GASTROENTEROLOGY ADULT REFERRAL +/- PROCEDURE Anticipatory guidance given today regarding diet, exercise and calcium intake, safety. Discussed healthy diet, need for weight loss, regular exercise program with swimming or cycling which may be easier on her joints. IZAIAH, BSO no longer needs paps. Due for routine colonoscopy given hx of polyps. Refer for that as well as DEXA scan. She wishes to defer Tdap vaccine today. She had a seizure with this vaccine as a child and is leery of getting it. 244.9 HYPOTHYROIDISM NOS Comment: followed by Dr. Hull Plan: follow up with specialist in February 174.9 DUCTAL CARCINOMA IN SITU Comment: s/p mastectomies, no longer needs mammograms Plan: continue surveillance for skin changes, chest wall masses 272.4 Hyperlipidemia LDL goal <130 Comment: no current statin use Plan: check cholesterol,discussed healthy diet 309.0 Adjustment disorder with depressed mood Comment: grief reaction, mother and mother in law Jul 2012. She is also needing to give her 2 dogs away as she cannot care for them with her arthritis. Plan: FLUoxetine (PROZAC) 40 MG capsule, PHQ-9 ORDER - select when completing PHQ-9, GENERAL ANXIETY DISORDER QUESTIONNAIRE (ARELIS) Increase fluoxetine to 40mg per day. Agree with counseling. Follow up in , sooner if needed 715.98 OSTEOARTHROS NOS-OTHER SITE Comment: feet, hands, wrists, ?lower back Plan: continue with injections of feet, anticipate surgery in May. Recommend core strengthening exercises for her back. If not helping could refer 401.9 HTN (hypertension) Comment: persistently elevated blood pressure Plan: hydrochlorothiazide (HYDRODIURIL) 25 MG tablet Restart diuretic, dicussed healthy lifestyle, weight loss, Follow up in 3-4 months Vanessa Mills MD Internal Medicine/Pediatrics documented in this encounter Nursing Notes 01/13/2013 10:30 AM CDT >> ANTWAN ETIENNE, CARCASS TRIMMER FriJanuary 13, 2013 10:20 AM Patient presents with: Physical - Insurance Wellness Check for 's employer Previsit - Due for Tdap, DEXA, TSH and colonoscopy Blood pressure 149/76, pulse 61, temperature 97.8 ??F (36.6 ??C), temperature source Oral, height 5'4 (162.6 cm), weight 170 lb (77.111 kg), SpO2 100.00%. Body mass index is 29.18 kg/(m^2). Patient Active Problem List: HEADACHE OSTEOARTHROS NOS-OTHER SITE FEMALE STRESS INCONTINENCE MEDICAL HISTORY OF - MENOPAUSAL DISORDER NEC PURE HYPERCHOLESTEROLEM iamLUMBAGO HYPOTHYROIDISM NOS OBESITY NOS DUCTAL CARCINOMA IN SITU Constipation Unspecified Essential Hypertension Depressive Disorder, not Elsewhere Classified HYPERLIPIDEMIA LDL GOAL <130 Current Outpatient Prescriptions: ValACYclovir (VALTREX) 1 GM tablet, Take 1 tablet by mouth 3 times daily. LEVOTHYROXINE SODIUM 175 MCG OR TABS, [...] Comment: 1 glass of wine per week ANTWAN ETIENNE CMA January 13, 2013 10:20 AM documented in this encounter Miscellaneous Notes Initial Assessments - Vanessa Mills MD - 01/28/2013 4:36 PM CDT documented in this encounter Plan of Treatment Not on filedocumented as of this encounter Procedures Procedure Name Priority Date/Time Associated Comments Diagnosis ZZ GASTROENTEROLOGY Routine 04/16/2013 Routine general ADULT REFERRAL +/- medical examination PROCEDURE at a health care facility VITAMIN D DEFICIENCY Routine 01/13/2013 11:23 Routine general Results for this SCREENING AM CDT medical examination procedur e are in at a [facility] care the results facility section. CBC WITH PLATELETS Routine 01/13/2013 11:23 Routine general Re sults for this AM CDT medical examination procedur e are in at a [facility] care the results facility section. LIPID PANEL ([facility]) Routine 01/13/2013 11:18 Routine general Results for this AM CDT medical examination procedur e are in at a health care the results facility section. COMPREHENSIVE METABOLIC Routine 01/13/2013 11:18 Routine gener al Results for this PANEL ([facility]) AM CDT medical examination proced ure are in at a health care the results facility section. PHQ-9 DEPRESSION Routine 01/13/2013 Adjustment disorder Resu lts for this SCREENING ORDER with depressed mood proce dure are in the results section. GENERAL ANXIETY DISORDER Routine 01/13/2013 Adjustment disor jean claude Results for this QUESTIONNAIRE (ARELIS-7) with depressed mood procedure are in the results section. documented in this encounter Results GASTROENTEROLOGY ADULT REFERRAL +/- PROCEDURE (04/16/2013) Narrative This result has an attachment that is no t available. Vanessa Mills MD REFERRAL Vitamin D Deficiency (01/13/2013 11:23 AM CDT) athologist Signature Vitamin D 38 30 - 75 [facility] Deficiency ug/L CAMPUS LABS screening Comment: Season, race, dietary intake, and treatm ent affect the concentration of 35-dgmwpie-Zfujxqg D. Values may decrea se during winter months and increase during summer months. Values less than 30 ug/L may indicate Vitamin D deficiency. Vitamin D determiniation is routinely p erformed by an immunoassay specific for 25 hydroxyvitamin D3. ??If an individua l is on vitamin D2 (ergocalciferol) supplementation, please specify 25 [place] v itamin D2 and D3 level determination by LCMSMS test [id number]. ??For questions, pl ease contact the laboratory at [phone]. Specimen Anatomical Collection Method Collection Time Receive d Time (Source) Location / / Volume Laterality Blood specimen VENOUS BLOOD / 01/13/2013 11:23 013 (specimen) Unknown AM CDT 11:24 AM CDT Vanessa Mills MD LAB - BLOOD ORDERABLES Performing Organization Address City/State/ZIP Code Phon e Number [id number] [place] [address] [facility]AMP[facility] LABS CBC with platelets (01/13/2013 11:23 AM CDT) athologist Signature WBC 5.2 4.0 - 11.0 [facility] 10e9/L [place] [facility] RBC Count 4.29 3.8 - 5.2 [facility] 10e12/L [place] [facility] Hemoglobin 13.2 11.7 - [facility] 15.7 g/dL [facility]AMPUS LABS Hematocrit 40.7 35.0 - [facility] 47.0 % [facility]AMP[facility]S MCV 95 78 - 100 [facility] fl CAMPUS LABS MCH 30.8 26.5 - [facility] 33.0 pg CAMPUS LABS MCHC 32.4 31.5 - [facility] 36.5 g/dL CAMPUS LABS RDW 13.8 10.0 - [facility] 15.0 % [facility]AMP[facility]S Platelet Count 240 150 - 450 [facility] 10e9/L CAMP[facility] LABS Specimen Anatomical Collection Method Collection Time Receive d Time (Source) Location / / Volume Laterality Blood specimen VENOUS BLOOD / 01/13/2013 11:23 013 (specimen) Unknown AM CDT 11:24 AM CDT Vanessa Mills MD LAB - BLOOD ORDERABLES Performing Organization Address City/State/ZIP Code Phon e Number [facility] [address] [place], [place] [id number] [place] [address] LABS Comprehensive Metabolic Panel ([place]) (01/13/2013 11:18 AM CDT) athologist Signature Glucose 105.0 60.0 - [place] 109.0 CLINIC LAB mg/dL Urea Nitrogen 17.0 7.0 - 30.0 [place] mg/dL CLINIC LAB Calcium 8.9 8.5 - 10.4 [place] mg/dL [facility] LAB Creatinine 0.8 0.6 - 1.3 [place] mg/dL [facility]IC LAB eGFR Calculated 78.3 >60.0 [place] (Non Black CLINIC LAB Reference) eGFR Calculated 94.7 >60.0 [place] (Black [facility] LAB Reference) Sodium 140.0 133.0 - [place] 144.0 [facility]IC LAB mmol/L Potassium 4.8 3.4 - 5.3 [place] mmol/L [facility] LAB Chloride 102.0 94.0 - [place] 109.0 [facility] LAB mmol/L Carbon Dioxide 30.0 20.0 - [place] 32.0 [facility] LAB mmol/L Albumin 3.9 3.2 - 4.5 [place] g/dL [facility] LAB Alkaline 50.0 40.0 - [place] Phosphatase 150.0 U/L CLINIC LAB ALT 30.0 0.0 - 50.0 [place] U/L [facility] AST 30.0 0.0 - 45.0 [place] U/L [facility] Bilirubin Total 0.7 0.2 - 1.3 [place] mg/dL [facility] LAB Protein Total 7.2 6.8 - 8.8 [place] g/dL [facility] LAB Specimen Anatomical Collection Method Collection Time Receive d Time (Source) Location / / Volume Laterality Blood specimen VENOUS BLOOD / 01/13/2013 11:18 013 (specimen) Unknown AM CDT 11:19 AM CDT Vanessa Mills MD LAB - LABDAQ Performing Organization Address City/State/ZIP Code Phon e Number [facility] [address] [place] [phone] [address] [facility] [address] [place], [place] [address] A (ABNORMAL) Lipid Panel ([place]) (01/13/2013 11:18 AM CDT) [facility] Method Time Signature FASTING SPECIMEN yes [facility] Cholesterol 211.0 (H) 0.0 - [place] 200.0 CLINIC LAB HDL Cholesterol 64.0 >50.0 [facility] Triglycerides 75.0 0.0 - [place] 150.0 CLINIC LAB Cholesterol/HDL 3.3 0.0 - 5.0 [place] Ratio [facility]INIC LAB LDL Cholesterol 132.0 (H) 0.0 - [place] Direct 129.0 CLINIC LAB VLDL-Cholesterol 15.0 7.0 - [place] 32.0 [facility]IC LAB Specimen Anatomical Collection Method Collection Time Receive d Time (Source) Location / / Volume Laterality Blood specimen VENOUS BLOOD / 01/13/2013 11:18 013 (specimen) Unknown AM CDT 11:18 AM CDT Vanessa Mills MD LAB - LABDAQ Performing Organization Address City/State/ZIP Code Phon e Number [facility] [address] [place] [address] [address] [facility] [address] [place] [address] A GENERAL ANXIETY DISORDER QUESTIONNAIRE (ARELIS) (01/13/2013) Antwan Carrasco [facility] - 01/13/2013 GAD7 score: 4 Vanessa Mills MD OTHER PHQ-9 ORDER - select when completing PHQ-9 (01/13/2013) Antwan Carrasco [facility] - 01/13/2013 Last PHQ-9 score on record= 7 Vanessa Mills MD OTHER documented in this encounter Visit Diagnoses Diagnosis Routine general medical examination at a health care facility - Primary HYPOTHYROIDISM NOS Unspecified hypothyroidism DUCTAL CARCINOMA IN SITU Malignant neoplasm of breast (female), u nspecified site Unspecified essential hypertension Hyperlipidemia LDL goal <130 Other and unspecified hyperlipidemia Adjustment disorder with depressed mood OSTEOARTHROS NOS-OTHER SITE Osteoarthrosis, unspecified whether gene ralized or localized, other specified sites HTN (hypertension) Unspecified essential hypertension documented in this encounter Care Teams Patrol Man Relationship Specialty Start Date End Date System, Provider Not In PCP - General 08/29/10 06/30/13 documented as of this encounter
--- OUTSIDE RECORDS SUMMARY | 2022-04-16 19:38 | XMS_ITS | Encounter Summary ---
:1955 Author Organization [facility] Address [address] [place] [address]. [place] [address] Care Team Providers Name Role Phone Angeles Olsen MD Primary Care Provider [phone] Reason for Visit [facility] Physical Therapy (Routine) - Closed Specialty Diagnoses / Procedures Referred By Contact Refer red To Contact Santana Jones DO [facility] [address] [place], [place] [address] Referral ID Status Reason Start Date Expiration Date Visits Requ ested Visits Authorized HP - LEG Closed 09/11/2009 08/17/2010 20 18 Encounter Details Date Type Department Care Team Description 09/18/2009 Therapy Visit [place] for Jasmin Florez PTA Hamstring Muscle Athletic Medicine - [address] (Primary Dx) [place] [facility] Therapy [place], [place] [id number] [place] [address] [address] [place], [place] (Work[place] [address] Social History Tobacco Use Types Packs/Day Years Used Date Never Smoker Alcohol Use Standard Drinks/Week Comments Yes 0 (1 standard drink = 0.6 oz pure alcoho l) 1 glass of wine per week 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 Date Recorded 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 Does this patient have Medicare or Medicaid as primary or secondary insurance? NO Subjective: HPI Objective: System Physical Exam General ROS Assessment/Plan: SUBJECTIVE Subjective changes as noted by pt: Pt. States her HS is feeling looser. Changes in function: Yes (See Goal flowsheet attached for changes in current functional level) Adverse reaction to treatment or activity: None OBJECTIVE Changes in objective findings: Yes, Moderate tightness at HS musculature. ASSESSMENT Valeri continues to require intervention to meet STG and LTG's: PT Patient's symptoms are resolving. Response to therapy has shown an improvement in pain level and flexibility Progress made towards STG/LTG? Yes (See Goal flowsheet attached for updates on achievement of STG and LTG) PLAN Current treatment program is being advanced to more complex exercises. SAS PROGRAMMER/ATC plan: N/A e/Medicaid. Please refer to the daily flowsheet for treatment today and total treatment time. R CUTTING MACHINE OPERATOR documented in this encounter Plan of Treatment Not on filedocumented as of this encounter Procedures Procedure Name Priority Date/Time Associated Diagnosis Comme nts ZZC THERAPEUTIC Routine 09/18/2009 11:52 AM Hamstring Muscle EXERCISES PAPER CUTTING MACHINE OPERATOR Strain ZZC ELECTRIC STIMULATION Routine 09/18/2009 11:52 AM Hamstring Muscle THERAPY PAPER CUTTING MACHINE OPERATOR Strain ZZC HOT OR COLD PACKS Routine 09/18/2009 11:52 AM Hamstring Mu scle THERAPY PAPER CUTTING MACHINE OPERATOR Strain documented in this encounter Visit Diagnoses Diagnosis Hamstring muscle strain - Primary Sprain and strain of unspecified site of knee and leg documented in this encounter Care Teams Chopped Strand Operator Relationship Specialty Start Date End Date Angeles Olsen MD PCP - General 02/26/02 08/28/10 documented as of this encounter
--- OUTSIDE RECORDS SUMMARY | 2022-04-16 19:38 | XMS_ITS | Encounter Summary ---
:1955 Author Organization [place] Address [address] [place] [address]. [place] [address] Care Team Providers Name Role Phone Angeles Olsen MD Primary Care Provider [phone] System, Provider Not In Primary Care Provider Unavailable Encounter Details Date Type Department Care Team Description 12/25/2009 Historic Results [facility] Vanessa Rasheed [address] [place] [address] [place] [id number] [place] [address] [place] [address] (Wo rk) Social History Tobacco Use Types Packs/Day Years Used Date Never Smoker Alcohol Use Standard Drinks/Week Comments Yes 0 (1 standard drink = 0.6 oz pure alcoho l) 1 glass of wine per week 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 Date Recorded 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 documented in this encounter Results CBC with platelets differential (12/25/2009 11:44 AM CDT) [facility] Method Time Signature MCV 89 78 - 100 [facility] fl MCH 29.0 26.5 - [facility] 33.0 pg MCHC 32.6 31.5 - [facility] 36.5 g/dL RDW 14.2 10.0 - [facility] 15.0 % WBC 5.3 4.0 - [facility] 11.0 10e9/L RBC Count 4.58 3.8 - 5.2 [facility] 10e12/L Hemoglobin 13.3 11.7 - [facility] 15.7 g/dL Hematocrit 40.8 35.0 - [facility] 47.0 % % Neutrophils 60 40 - 75 % [facility] % Lymphocytes 26 20 - 48 % [facility] % Monocytes 11 0 - 12 % [facility] % Eosinophils 3 0 - 6 % [facility] % Basophils 0 0 - 2 % [facility] Platelet Count 301 150 - 450 [facility] 10e9/L Absolute 3.2 1.6 - 8.3 [facility] Neutrophil 10e9/L Absolute 1.4 0.8 - 5.3 [facility] Lymphocytes 10e9/L Absolute 0.6 0.0 - 1.3 [facility] Monocytes 10e9/L Absolute 0.2 0.0 - 0.7 [facility] Eosinophils 10e9/L Absolute 0.0 0.0 - 0.2 [facility] Basophils 10e9/L Diff Method Automated [facility] Method Specimen Anatomical Collection Method Collection Time Receive d Time (Source) Location / / Volume Laterality 12/25/2009 11:44 12/25/2009 AM CDT 11:45 AM CDT Vanessa Mills MD LAB - BLOOD ORDERABLES Performing Organization Address City/State/ZIP Code Phon e Number [facility] documented in this encounter Visit Diagnoses Not on filedocumented in this encounter Care Teams Adult Education Teacher Relationship Specialty Start Date End Date Angeles Olsen MD PCP - General 02/26/02 08/28/10 System, Provider Not In PCP - General 08/29/10 06/30/13 documented as of this encounter
--- OUTSIDE RECORDS SUMMARY | 2022-04-16 19:38 | XMS_ITS | Encounter Summary ---
:1955 Author Organization [facility] Address [address] [place] [address]. [place] [address] Care Team Providers Name Role Phone System, Provider Not In Primary Care Provider Unavailable Encounter Details Date Type Department Care Team Description 12/05/2010 Hospital Encounter [facility] lesli Mendez MD [address] [facility] [address] [place] [address] [place] [address] [phone] (Wo rk) Social History Tobacco Use Types Packs/Day Years Used Date Never Smoker Alcohol Use Standard Drinks/Week Comments Yes 0 (1 standard drink = 0.6 oz pure alcoho l) 1 glass of wine per week 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 Date Recorded 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 Medications at Time of Discharge Medication Sig Dispensed Refills Start Date End Date LEVOTHYROXINE SODIUM 175 Take 137 mcg by mouth 30 0 05/11/2009 MCG OR TABS CALCIUM 600 + D 600-200 1 tablet daily 3 MONTHS 1 09/24/19 08 01/13/2019 MG-UNIT OR TABS FLUOXETINE HCL 20 MG OR ONE DAILY IN THE 90 1 200805/19/2013 TABSIndications: MORNING Depressive disorder, not elsewhere classified MULTI-VITAMIN OR TABS 1 tablet daily 0 10/22/2005 01/13/2019 PIROXICAM 20 MG OR CAPS 1 CAPSULE DAILY 30 0 007 07/17/2015 PLAQUENIL 200 MG OR one tablet twice a 60 0 05/11/20 09 03/25/2016 TABSIndications: day Arthritis UNKNOWN MED DOSAGE Glucosamine 0 09/24/200703/25 Chondroitin 1500/1200 2 tabs po qd ValACYclovir (VALTREX) 1 Take 1 tablet by 21 tablet 0 06/1301/13/2013 GM tabletIndications: mouth 3 times daily. Herpes zoster VITAMIN C 500 MG OR TABS 1 tablet po qd 0 01/13/2019 VITAMIN D 1000 UNIT OR 1 TABLET DAILY 30 0 8 01/13/2019 TABS documented as of this encounter Plan of Treatment Not on filedocumented as of this encounter Visit Diagnoses Not on filedocumented in this encounter Care Teams Trampoline Team Coach Relationship Specialty Start Date End Date System, Provider Not In PCP - General 08/29/10 06/30/13 documented as of this encounter
--- OUTSIDE RECORDS SUMMARY | 2022-04-16 19:38 | XMS_ITS | Encounter Summary ---
:1955 Author Organization [place] Address [facility] [place] [address] Care Team Providers Name Role Phone System, Provider Not In Primary Care Provider Unavailable Encounter Details Date Type Department Care Team Description 12/30/2012 Medical Correspondence [facility] Lisa Mills OUTSIDE REC'S, Health Info [facility] MD Vanessa THERAP. 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
--- OUTSIDE RECORDS SUMMARY | 2022-04-16 19:38 | XMS_ITS | Encounter Summary ---
:1955 Author Organization [facility] Address [address] [place] [address]. 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 Patient Name: VALERI ROJAS Surgeon (please enter first and last name): Dr. Trang Bello Fax number for Preop Evaluation: [phone] Location of Surgery: [facility] Date of Surgery: 01/21/2011 Procedure: Reconstruction of right thumb History of reaction to anesthesia? Yes, Explain: nausea. Provider Note Valeri is a 55 yo woman with a history of osteoarthritis. She has subluxation of her right thumb which requires surgery. She has no significant pain at this time. She uses plaquenil and Piroxicam daily. Valeri has no underlying cardiovascular disease, lung disease, diabetes or hematologic disorders. She has had multiple surgeries in the past. Of note is post op nausea and vomiting. She is sensitive tonarcotics with nausea but tolerates Darvocet or Percocet. Health Mgmt Plan Colonoscopy every 5 years; for HEALTH MAINTENANCE. ROS Constitutional: no fevers, no current illness Eyes: no vision change, diplopia or red eyes Ears, Nose, Mouth, Throat: no tinnitus or hearing change, no epistaxis or nasal discharge, no oral lesions, throat clear Cardiovascular: no chest pain, palpitations Respiratory: no dyspnea, cough, shortness of breath or wheezing GI: no nausea, vomiting, diarrhea or constipation, no abdominal pain : no change in urine, no dysuria or frequency Musculoskeletal: hx of osteoarthritis, left hand dominant, subluxation of the CMC joint of the rightthumb Integumentary: no concerning lesions or moles Neuro: no loss of strength or sensation, no numbness or tingling, no tremor, no dizziness, no headache Endo: no polyuria or polydipsia, no temperature intolerance Heme/Lymph: no concerning bumps, no bleeding problems Allergy: no environmental allergies Psych: hx of depression, stable on medication. Pain Eval Current history of pain associated with this visit is denied. 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 Hull, aerial installer Menopause 2002 (627.2) Osteoarthritis 2003 (715.90); followed [...] brother Family history of Hypothyroidism; followed by aerial installer, Dr. Hull Family history of Menopause Family history of Osteoarthritis; mother Family history of Parkinson's Disease; brother. Personal Hx Behavioral history: No tobacco use. Home environment: No secondhand tobacco smoke in home. Immunizations Hepatitis B; 30 Aug 2003 Td; [...] Vital Signs Recorded by Allie Keys on 09 Jan 2011 09:50 AM BP:137/78, RUE, Sitting, HR: 67 b/min, Height: 64.5 in, Weight: 193 lb, BMI: 32.6 kg/m2. Physical Exam Constitutional: [...] hepatosplenomegaly, no masses Musculoskeletal: deformity of the right thumb, as above, no redness or swelling Skin: no concerning lesions, no jaundice Neurological: cranial nerves intact, normal strength and sensation, reflexes at patella and biceps normal, normal gait, no tremor Psychological: appropriate mood Lymphatic: no cervical lymphadenopathy Ext: no edema. Results EKG: NSR, rate 55. No ST-T changes. Normal EKG Read by Ronak Mills MD. Assessment PREOPERATIVE ASSESSMENT Elective right thumb surgery No contraindication to surgery, low risk patient, low risk procedure. Patient is at low risk for cardiovascular or pulmonary complications during surgery. Labs: See attached. Normal CBC in November 2010. No other labs indicated Recommendations: I recommend proceeding with surgery as planned. Vanessa Mills MD Internal medicine/pediatrics. Signature Signed By: Allie Keys CMA; 01/09/2011 9:53 AM TREE FELLER. Signed By: Vanessa Mills M.D.; 01/09/2011 10:53 AM TREE FELLER. documented in this encounter Plan of Treatment Not on filedocumented as of this encounter Visit Diagnoses Not on filedocumented in this encounter Care Teams Telephone Operator Receptionist Relationship Specialty Start Date End Date System, Provider Not In PCP - General 08/29/10 06/30/13 documented as of this encounter
--- OUTSIDE RECORDS SUMMARY | 2022-04-16 19:38 | XMS_ITS | Encounter Summary ---
:1955 Author Organization [facility] Address [address] [place] [address]. [place] [address] Care Team Providers Name Role Phone System, Provider Not In Primary Care Provider Unavailable Encounter Details Date Type Department Care Team Description 12/05/2010 Results Only [facility] Vanessa Rasheed [facility] [place] [address] [place] [address] [place] [address] (Wo rk) Social History Tobacco Use Types Packs/Day Years Used Date Never Smoker Alcohol Use Standard Drinks/Week Comments Yes 0 (1 standard drink = 0.6 oz pure alcoho l) 1 glass of wine per week 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 Date Recorded 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 documented in this encounter Results CBC with platelets differential (12/05/2010 1:39 PM CDT) [facility] Method Time Signature WBC 4.7 4.0 - [facility] 11.0 [facility] 10e9/L [facility] RBC Count 4.74 3.8 - 5.2 [facility] 10e12/L [facility] Hemoglobin 13.8 11.7 - [facility] 15.7 g/dL [facility] Hematocrit 42.2 35.0 - [facility] 47.0 % [facility] MCV 89 78 - 100 [facility] fl [facility] MCH 29.1 26.5 - [facility] 33.0 pg [facility] MCHC 32.7 31.5 - [facility] 36.5 g/dL [facility] RDW 13.8 10.0 - [facility] 15.0 % [facility] Platelet Count 294 150 - 450 [facility] 10e9/L [facility] Diff Method Automated [facility] Method [facility] % Neutrophils 58.4 40 - 75 % [facility] % Lymphocytes 27.6 20 - 48 % [facility] % Monocytes 11.3 0 - 12 % [facility] % Eosinophils 1.9 0 - 6 % [facility] % Basophils 0.6 0 - 2 % [facility] % Immature 0.2 0 - 0.4 % [facility] Granulocytes [facility] Absolute 2.8 1.6 - 8.3 [facility] Neutrophil 10e9/L [facility] Absolute 1.3 0.8 - 5.3 [facility] Lymphocytes 10e9/L [facility] Absolute 0.5 0.0 - 1.3 [facility] Monocytes 10e9/L [facility] Absolute 0.1 0.0 - 0.7 [facility] Eosinophils 10e9/L [facility] Absolute 0.0 0.0 - 0.2 [facility] Basophils 10e9/L [facility] Abs Immature 0.0 0 - 0.03 [facility] Granulocytes 10e9/L [facility] Specimen Anatomical Collection Method Collection Time Receive d Time (Source) Location / / Volume Laterality 12/05/2010 1:39 PM 1 1:40 CDT PM CDT Vanessa Mills MD LAB - BLOOD ORDERABLES Performing Organization Address City/State/ZIP Code Phon e Number [facility] [address] [place] [address] [facility] documented in this encounter Visit Diagnoses Not on filedocumented in this encounter Care Teams Polymer Tester Relationship Specialty Start Date End Date System, Provider Not In PCP - General 08/29/10 06/30/13 documented as of this encounter
--- OUTSIDE RECORDS SUMMARY | 2022-04-16 19:38 | XMS_ITS | Encounter Summary ---
:1955 Author Organization [place] Address [address] [place] [address] Care Team Providers Name Role Phone Vanessa Mills MD Primary Care Provider [phone] Reason for Visit Reason Comments Pre-Op Exam Encounter Details Date Type Department Care Team Description 10/13/2013 Office Visit [facility] Vanessa Mills Preoperative examination (Pr imary Dx); [facility] Condomlopez MD Vanessa Hypertension Building [address] [place] [address] [address] 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 documented as of this encounter Last Filed Vital Signs Vital Sign Reading Time Taken Comments Blood Pressure 148/84 10/13/2013 12:57 PM IT INFRASTRUCTURE ARCHITECT Pulse 62 10/13/2013 12:57 PM IT INFRASTRUCTURE ARCHITECT Temperature 36.5 ??C (97.7 ??F) 10/13/2013 12:57 PM IT INFRASTRUCTURE ARCHITECT Respiratory Rate - - Oxygen Saturation 100% 10/13/2013 12:57 PM IT INFRASTRUCTURE ARCHITECT Inhaled Oxygen Concentration - - Weight 83.5 kg (184 lb) 10/13/2013 12:57 PM IT INFRASTRUCTURE ARCHITECT Height 162.6 cm (5' 4) 10/13/2013 12:57 PM IT INFRASTRUCTURE ARCHITECT Body Mass Index 31.58 10/13/2013 12:57 PM IT INFRASTRUCTURE ARCHITECT documented in this encounter Progress Notes Vanessa Mills MD - 10/13/2013 8:40 AM CST [address], [address] [facility] [address] PRE-OP EVALUATION: Today's date: 10/13/2013 Valeri Keenan (: 1955) presents for pre-operative evaluation assessment as requested by Dr. Deras. She requires evaluation and anesthesia risk assessment prior to undergoing surgery/procedure for treatment of right foot pain . Proposed procedure: Reconstruction of right foot, Date of Surgery/ Procedure: 10/22/13 Time of Surgery/ Procedure: 5:30 AM arrival time Hospital/Surgical Facility: [facility] Fax number for surgical facility: [phone] Primary Physician: Vanessa Mills MD Type of Anesthesia Anticipated: General History of anesthesia complications: NONE and YES: Personal HX Nausea History of abnormal bleeding: NONE and YES: Personal HX after receiving a Heparin injection 6 years ago History of blood transfusions: NO Patient has a Health Care Directive or Living Will: NO HPI: Preop Valeri is to undergo elective surgery for persistent right foot pain. She has significant arthritis and has had similar procedure on her left foot. She is generally in good health, although she has a complex medical history. She has had many surgeries and has not had any adverse reaction to anesthesia. No hx of blood clots or need for transfusion. She has underlying HTN and is treated with HCTZ 25mg daily. Nonsmoker. No hx of CAD or Stroke. Last EKG was done less than 6 months ago and was essentially normal. Patient Active Problem List Diagnosis Date Noted [...] Headache 12/05/10 ??? Osteoarthritis 12/05/10 followed by principal java software engineer; Affects hands, feet, multiple joints Past Surgical History Procedure Date ??? C appendectomy ??? C nonspecific procedure RIGHT 2ND TOE SURGERY ??? C vag hyst,rmv tube/ovary 08/2002 Fibroids, on HRT x 10 months, then D/C ??? C mastectomy, simple, complete 03/2007 right with carcinoma, left prophylactic ??? C thyroidectomy 07/2007 total thyroidectomy ??? Colonoscopy 04/16/2013 due 2022 ??? Carpal tunnel release rt/lt Current Outpatient Prescriptions Medication Sig ??? hydrochlorothiazide (HYDRODIURIL) 25 MG tablet Take 1 tablet (25 mg) by mouth daily ??? FLUoxetine (PROZAC) 40 MG capsule Take 1 capsule by mouth daily. ??? LEVOTHYROXINE SODIUM 175 MCG OR TABS 1 TABLET DAILY ??? PLAQUENIL 200 MG OR TABS one tablet twice a day ??? VITAMIN D 1000 UNIT OR TABS [...] REVIEW OF SYSTEMS: C: NEGATIVE for fever, chills, No recent illness E/M: NEGATIVE for ear, mouth and throat problems R: NEGATIVE for significant cough or SOB CV: NEGATIVE for chest pain, palpitations or peripheral edema GI: no abdominal pain : no UTI symptoms MS: right foot pain, generalized arthralgias EXAM: BP 148/84 Pulse 62 Temp 97.7 ??F (36.5 ??C) (Oral) Ht 5' 4 (162.6 cm) Wt 184 lb (83.462 kg) BMI 31.57 kg/m2 SpO2 100% GENERAL APPEARANCE: healthy, alert and no distress [...] normal, mentation intact and speech normal Ext: deformity over toes of right foot, no redness or warmth. Local tenderness with palpation over dorsum of right foot where metatarsal bones meet the digits. DIAGNOSTICS: Preop Testing EKG: (05/2013) appears normal, NSR, rate 61, nonspecific intraatrial conduction delay. No acute ST/Tchanges c/w ischemia, no LVH by voltage criteria. Read by Vanessa Mills MD Internal Medicine/Pediatrics Pending Basic metabolic and CBC IMPRESSION: V72.84 Preoperative examination (primary encounter diagnosis) Comment: elective right foot surgery Plan: CBC with platelets No contraindication to procedure, continue as planned 401.9 Hypertension Comment: elevated pressure here in clinic but historically low Plan: Basic Metabolic Panel ([place]) Take HCTZ 25mg dose with sip of water on am of surgery. Vanessa Mills MD The proposed surgical procedure is considered INTERMEDIATE risk. For above listed surgery and anesthesia: Patient is at MODERATE risk for surgery/procedure and perioperative/procedure complications. RECOMMENDATIONS: --Approval given to proceed with proposed procedure, without further diagnostic evaluation. Signed Electronically by: Vanessa Mills MD Copy of this evaluation report is provided to requesting physician. Preop Guidelines documented in this encounter Nursing Notes 10/13/2013 1:00 PM CST >> Antawn Herrera, [facility] FriOct 13, 2013 12:58 PM Patient presents with: Pre-Op Exam 58 year old Blood pressure 148/84, pulse 62, temperature 97.7 ??F (36.5 ??C), temperature source Oral, height 5'4 (162.6 cm), weight 184 lb (83.462 kg), SpO2 100.00%. Body mass index is 31.57 kg/(m^2). Wt Readings from Last 3 Encounters: 10/13/13 : 184 lb (83.462 kg) 05/19/13 : 176 lb (79.833 kg) 01/13/13 : 170 lb (77.111 kg) BP Readings from Last 3 Encounters: 10/13/13 : 148/84 05/19/13 : 151/83 01/13/13 : 149/76 Patient Active Problem List: HEADACHE OSTEOARTHROS NOS-OTHER SITE FEMALE STRESS INCONTINENCE MENOPAUSAL DISORDER NEC iamLUMBAGO HYPOTHYROIDISM NOS OBESITY NOS DUCTAL CARCINOMA IN SITU Constipation HYPERLIPIDEMIA LDL GOAL <130 Hypertension Major depression, chronic Current Outpatient Prescriptions: hydrochlorothiazide (HYDRODIURIL) 25 MG tablet, Take 1 tablet (25 mg) by mouth daily FLUoxetine (PROZAC) 40 MG capsule, Take 1 capsule by mouth daily. LEVOTHYROXINE SODIUM 175 MCG OR TABS, 1 TABLET DAILY PLAQUENIL 200 MG OR TABS, one tablet twice a day VITAMIN D 1000 UNIT OR TABS, 1 [...] Influenza Vaccine (System Assigned) due on 05/18/2013 Tetanus Q10 Yr due on 08/30/2013 Pap Q3 Yr No Inb Msg due on 12/05/2013 Dexa Q3 Yr due on 01/14/2016 Lipid Monitoring Q5 Years (No Inbasket) due on 01/13/2018 Colonoscopy Q10 Yr Inbasket Message due on 04/16/2023 Antwan Herrera, HOME HEALTH SPEECH THERAPIST 12:58 PM documented in this encounter Plan of Treatment Not on filedocumented as of this encounter Procedures Procedure Name Priority Date/Time Associated Diagnosis Comme nts CBC WITH PLATELETS Routine 10/13/2013 2:44 PM Preoperative Res ults for this IT INFRASTRUCTURE ARCHITECT examination procedure are i n the results section. BASIC METABOLIC Routine 10/13/2013 1:28 PM Hypertension Result s for this PANEL (LABDAQ) IT INFRASTRUCTURE ARCHITECT procedure are in the results section. documented in this encounter Results CBC with platelets (10/13/2013 2:44 PM IT INFRASTRUCTURE ARCHITECT) athologist Signature WBC 5.0 4.0 - 11.0 [facility] 10e9/L [facility] RBC Count 4.53 3.8 - 5.2 [facility] 10e12/L [facility] Hemoglobin 13.6 11.7 - [facility] 15.7 g/dL [facility] Hematocrit 40.7 35.0 - [facility] 47.0 % [facility] MCV 90 78 - 100 [facility] fl CAMPUS [facility] MCH 30.0 26.5 - [facility] 33.0 pg CAMPUS LABS MCHC 33.4 31.5 - [facility] 36.5 g/dL [facility] RDW 14.1 10.0 - [facility] 15.0 % [facility] Platelet Count 264 150 - 450 [facility] 10e9/L [facility] Specimen Anatomical Collection Method Collection Time Receive d Time (Source) Location / / Volume Laterality Blood specimen VENOUS BLOOD / 10/13/2013 2:44 PM 10/13 2:45 (specimen) Unknown IT INFRASTRUCTURE ARCHITECT PM IT INFRASTRUCTURE ARCHITECT Vanessa Mills MD LAB - BLOOD ORDERABLES Performing Organization Address City/State/ZIP Code Phon e Number [facility] [address] [place] [address] [facility] Basic Metabolic Panel ([place]) (10/13/2013 1:28 PM IT INFRASTRUCTURE ARCHITECT) P athologist Signature Glucose 107.0 60.0 - [place] 109.0 [facility] mg/dL Urea Nitrogen 19.0 7.0 - 30.0 [place] mg/dL [facility] Calcium 9.4 8.5 - 10.4 [place] mg/dL [facility] Creatinine 0.7 0.6 - 1.3 [place] mg/dL [facility] LAB eGFR Calculated 91.0 >60.0 [place] (Non Black CLINIC LAB Reference) eGFR Calculated 110.1 >60.0 [place] (Black [facility] LAB Reference) Sodium 142.0 133.0 - [place] 144.0 [facility] mmol/L Potassium 4.2 3.4 - 5.3 [place] mmol/L [facility] Chloride 100.0 94.0 - [place] 109.0 [facility] mmol/L Carbon Dioxide 28.0 20.0 - [place] 32.0 [facility] mmol/L Specimen Anatomical Collection Method Collection Time Receive d Time (Source) Location / / Volume Laterality Blood specimen VENOUS BLOOD / 10/13/2013 1:28 PM 10/13 1:28 (specimen) Unknown IT INFRASTRUCTURE ARCHITECT PM IT INFRASTRUCTURE ARCHITECT Vanessa Mills MD LAB - LABDAQ Performing Organization Address City/[facility]/ZIP Code Phon e Number [facility] [address] [place] [address] [address] [facility] [address] [place] [address] A documented in this encounter Visit Diagnoses Diagnosis Preoperative examination - Primary Preoperative examination, unspecified Hypertension Unspecified essential hypertension documented in this encounter Care Teams Fusing Machine Operator Relationship Specialty Start Date End Date Vanessa Mills MD PCP - General Internal Medicine 07/01/[address] [place] [id number] documented as of this encounter
--- OUTSIDE RECORDS SUMMARY | 2022-04-16 19:38 | XMS_ITS | Encounter Summary ---
:1955 Author Organization [place] Address [address] [place] [address]. [place] [address] Care Team Providers Name Role Phone Vanessa Mills MD Primary Care Provider [phone] Reason for Visit (Routine) - Closed Specialty Diagnoses / Procedures Referred By Contact Refer red To Contact Radiology / Radiology. Diagnoses epic order..sb pt Rh Xray Procedures XR CHEST 2 VIEWS [address] [place] [address] Phone: Fax: Referral ID Status Reason Start Date Expiration Date Visits Requ ested Visits Authorized [id number] Closed 01/25/2014 01/25/2015 1 1 Encounter Details Date Type Department Care Team Description 01/26/2014 Hospital Encounter [facility] Vanessa Mills [facility] Imaging MD Vanessa medical examination [address] at [facility] facility [address] [place], [place] [phone] [address] Social History Tobacco Use Types Packs/Day Years Used Date Never Smoker Smokeless Tobacco: Never Used Alcohol Use Standard Drinks/Week Comments Yes 0 (1 standard drink = 0.6 oz pure alcoho l) 1 glass of wine per week 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 Date Recorded 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 documented as of this encounter Medications at Time of Discharge Medication Sig Dispensed Refills Start Date End Date LEVOTHYROXINE SODIUM 175 Take 137 mcg by 30 0 2008 MCG OR TABS mouth CALCIUM 600 + D 600-200 1 tablet daily 3 MONTHS 1 09/24/19 08 01/13/2019 MG-UNIT OR TABS FLUoxetine (PROZAC) 40 MG Take 1 capsule (40 30 capsule 11 01/03/2015 capsuleIndications: mg) by mouth daily Adjustment disorder with depressed mood hydrochlorothiazide Take 1 tablet (25 30 tablet 11 4 01/03/2015 (HYDRODIURIL) 25 MG mg) by mouth daily tabletIndications: HTN (hypertension) MULTI-VITAMIN OR TABS 1 tablet daily 0 10/22/2005 01/13/2019 nystatin (MYCOSTATIN) Apply topically 2 30 g 2 014 06/27/2015 ointmentIndications: times daily Cutaneous candidiasis PIROXICAM 20 MG OR CAPS 1 CAPSULE DAILY 30 0 007 07/17/2015 PLAQUENIL 200 MG OR one tablet twice a 60 0 05/11/20 09 03/25/2016 TABSIndications: Arthritis day UNKNOWN MED DOSAGE Glucosamine 0 09/24/200703/25 Chondroitin 1500/1200 2 tabs po qd VITAMIN C 500 MG OR TABS 1 tablet po qd 0 01/13/2019 VITAMIN D 1000 UNIT OR 1 TABLET DAILY 30 0 8 01/13/2019 TABS documented as of this encounter Plan of Treatment Not on filedocumented as of this encounter Procedures Procedure Name Priority Date/Time Associated Diagnosis Comme nts XR CHEST 2 VIEWS Routine 01/26/2014 10:43 AM Routine general R esults for this CDT medical examination procedur e are in at a [facility] care the results facility section. documented in this encounter Results XR Chest 2 Views (01/26/2014 10:43 AM CDT) Anatomical Region Laterality Modality Chest Computed Radiography Specimen (Source) Anatomical Location Collection Method / Collectio n Time Received Time / Laterality Volume Impressions 01/26/2014 10:49 AM CDT IMPRESSION: Negative. GAYATHRI KLEIN MD Narrative 01/26/2014 10:49 AM CDT XR CHEST 2 VW 01/26/2014 10:49 AM HISTORY: Radon exposure,Routine general medical examination at a health care facility ? Procedure Note Gayathri Klein MD - 01/26/2014Formatt ing of this note might be different from the original. XR CHEST 2 VW 01/26/2014 10:49 AM HISTORY: Radon exposure,Routine general medical examination at a health care facility IMPRESSION IMPRESSION: Negative. GAYATHRI KLEIN MD Vanessa Mills MD IMG DIAGNOSTIC IMAGING ORDER JEN documented in this encounter Visit Diagnoses Diagnosis Routine general medical examination at a health care facility documented in this encounter Care Teams Roofer Vinyl Coating Relationship Specialty Start Date End Date Vanessa Mills MD PCP - General Internal Medicine 07/01/13 [address] [facility] [place] [address] documented as of this encounter
--- OUTSIDE RECORDS SUMMARY | 2022-04-16 19:38 | XMS_ITS | Encounter Summary ---
:1955 Author Organization [place] Address [address] [place] [address] Care Team Providers Name Role Phone Vanessa Mills MD Primary Care Provider [phone] Reason for Visit Reason Onset Date Comments Refill Request 08/05/2013 Encounter Details Date Type Department Care Team Description 08/05/2013 Refill [facility] Vanessa Mills, [facility] Condominisuzy rai MD [address] 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
--- OUTSIDE RECORDS SUMMARY | 2022-04-16 19:38 | XMS_ITS | Encounter Summary ---
:1955 Author Organization [place] Address [address] [place] [address]. [place] [address] Care Team Providers Name Role Phone Angeles Olsen MD Primary Care Provider Reason for Visit [facility] (Routine) - Closed Specialty Diagnoses / Procedures Referred By Contact Refer red To Contact Santana Jones DO [facility] [address] [place], [place] [address] Referral ID Status Reason Start Date Expiration Date Visits Requ ested Visits Authorized HP - LEG Closed 09/11/2009 08/17/2010 20 18 Encounter Details Date Type Department Care Team Description 09/20/2009 Therapy Visit [place] for Cirilo Rey PT Hamstring Muscle Athletic Medicine - [facility] SATYA LE Strain (Primary Dx) [facility] [address] [facility] [address] [address] [place], [place] [address] [place], [place] [phone] [address] (Work) [phone] Social History Tobacco Use Types Packs/Day Years Used Date Never Smoker Alcohol Use Standard Drinks/Week Comments Yes 0 (1 standard drink = 0.6 oz pure alcoho l) 1 glass of wine per week 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 Date Recorded 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 documented as of this encounter Plan of Treatment Not on filedocumented as of this encounter Procedures Procedure Name Priority Date/Time Associated Diagnosis Comme nts [facility] THERAPEUTIC Routine 09/20/2009 1:28 PM Hamstring Muscle EXERCISES PRODUCT SAFETY TESTER Strain [facility] ELECTRIC STIMULATION Routine 09/20/2009 1:28 PM Hamstring Muscle THERAPY PRODUCT SAFETY TESTER Strain documented in this encounter Visit Diagnoses Diagnosis Hamstring muscle strain - Primary Sprain and strain of unspecified site of knee and leg documented in this encounter Care Teams Sprinkler Tender Relationship Specialty Start Date End Date Angeles Olsen MD PCP - General 02/26/02 08/28/10 documented as of this encounter
--- OUTSIDE RECORDS SUMMARY | 2022-04-16 19:38 | XMS_ITS | Encounter Summary ---
:1955 Author Organization [place] Address [address] [place] [address]. [place] [address] Care Team Providers Name Role Phone System, Provider Not In Primary Care Provider Unavailable Reason for Visit Reason Onset Date Comments Previsit 01/12/2013 Left message to noti fy patient of appointment on 01/13/13 at 10:30am. Requested p atient arrive fasting and 15 minutes prior to appointment for hernandez zheng. Encounter Details Date Type Department Care Team Description 01/12/2013 PRE VISIT [facility] Vanessa Mills Previsit (Left message Phill Mendez MD to notify patient of [address] appointment on 01/13/[address] [place] [address] at 10: 30am. Requested [address] [id number] patient arrive fasting [place], [place] [address] and 15 minutes prior to appointment for paperwork . 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 documented as of this encounter Miscellaneous Notes Telephone Encounter - Antwan Etienne, AGRICULTURAL ENGINEERING TEACHER - 01/12/2013 3:53 PM CDT Previsit Planning The following patient Valeri Keenan [id number] is due for the following: DEXA scan (bone density test), TSH (no labs drawn at Automotive Airconditioning Mechanic) History on file includes the following; Colonoscopy/Fit Card: 04/29/08, 05/15/05 (Scanned to Health Maintenance) Mammogram: 11/24/07 *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 Hepatitis A 04/30/2005 ??? Hepatitis B 08/30/2003 ??? IPV 10/09/2004 ??? Mantoux 11/29/2008 ??? TD (ADULT, 7+) 08/30/2003 ??? Typhoid IM 05/22/2005 ??? Typhoid Oral 10/09/2004 ??? Yellow Fever 05/22/2005 ANTWAN ETIENNE CMA 01/12/2013 3:53 PM documented in this encounter Plan of Treatment Not on filedocumented as of this encounter Visit Diagnoses Not on filedocumented in this encounter Care Teams Exposure Machine Operator Relationship Specialty Start Date End Date System, Provider Not In PCP - General 08/29/10 06/30/13 documented as of this encounter
--- OUTSIDE RECORDS SUMMARY | 2022-04-16 19:38 | XMS_ITS | Encounter Summary ---
:1955 Author Organization [place] Address [address] [place] [address]. [place] [address] Care Team Providers Name Role Phone Angeles Olsen MD Primary Care Provider [phone] Reason for Visit Reason Onset Date Comments Formulary Issue 09/22/2009 prior auth for Pradippete suzybrendon Encounter Details Date Type Department Care Team Description 09/22/2009 Telephone [facility] Eag an Angeles Olsen Formulary Issue (prior [address] [facility] MD Amara auth for Wellbutrin) [place] [address] [facility] [phone] [address] [place], [place] [address] (Wo rk) Social History Tobacco Use Types Packs/Day Years Used Date Never Smoker Alcohol Use Standard Drinks/Week Comments Yes 0 (1 standard drink = 0.6 oz pure alcoho l) 1 glass of wine per week 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 Date Recorded 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 Olsen. At this dose, pt does not have to wean off of medication. PA form sent to abstracting. Quita Álvarez RN OND EXPERT Telephone Encounter - Tyra Caldwell - 10/04/2009 8:43 AM CST Called pt and informed her that [facility] to try generic formula but pt refuse to trygeneric form. I informed her she can pay out of pocket for original but pt said she will stop takingit.Tyra Caldwell CMA OND EXPERT Telephone Encounter - Liliane Leung - 09/22/2009 11:56 AM CST Form received and completed; put in an outguide and placed at [facility]'s station/pending PA bin. Awaiting response from insurance company. OND EXPERT Telephone Encounter - Liliane Leung - 09/22/2009 11:16 AM CST Called [facility] to request a PA on Wellbutrin. I was informed that claim will probably be denied if patient has never tried the generic. Requested PA form. I called Valeri and asked her if she had ever been on the generic form; she has not. She said she would rather not have to try it since she has been taking it the last two years and it has previously been covered. I did inform her we would still send the request but it is pretty likely for it to be denied and shewould need to try the generic form. Awaiting PA form. OND EXPERT Telephone Encounter - Liliane Leung - 09/22/2009 10:50 AM CST Patient requesting a PA on Wellbutrin/Insurance Requires Prior Authorization. She is down to two tablets. Pharmacy Benefit Information: Insurance Provider: [employer] Phone#- ID#-[id number] Medication/SIG: Wellbutrin XL 150mg, 1 tablet daily Pharmacy- [facility] Please call patient with any questions at : [phone]. OND EXPERT documented in this encounter Plan of Treatment Not on filedocumented as of this encounter Visit Diagnoses Not on filedocumented in this encounter Care Teams Chocolate Finisher Relationship Specialty Start Date End Date Angeles Olsen MD PCP - General 02/26/02 08/28/10 documented as of this encounter
--- OUTSIDE RECORDS SUMMARY | 2022-04-16 19:38 | XMS_ITS | Encounter Summary ---
:1955 Author Organization [facility] Address [address] [place] [address]. [place] [address] Care Team Providers Name Role Phone Angeles Olsen MD Primary Care Provider [phone] System, Provider Not In Primary Care Provider Unavailable Encounter Details Date Type Department Care Team Description 12/25/2009 Office Visit-[facility] Unknown, Provider [place] [facility] [address] 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 Pain Eval Current history of pain associated with this visit is as follows: Location: mouth Quality: burning Severity: 3 (Pain scale 1-10, with 10 being the worst) Duration: all day Timing: all day Context: na Modifying factors: na Associated signs/symptoms: sore in mouth. Allergies Ancef SOLR Meperidine Morphine Derivatives Amended By: Gabi Carmona ; 09/24/2010 3:13 PM FLAKER OPERATOR. Current Meds Reviewed with patient, reported none. Vital Signs None. Recorded by [email or web address] on 25 Dec 2009 10:56 AM BP:130/83, LUE, Sitting, HR: 62 b/min, Temp: 98.2 F, Oral, Height: 64.25 in, Weight: 190.04 lb, BMI: 32.4 kg/m2. Signature Signed By: Laurie Biswas CMA; 12/25/2009 10:58 AM FLAKER OPERATOR. Signed By: Vanessa Mills M.D.; 01/01/2010 3:58 PM FLAKER OPERATOR. documented in this encounter Plan of Treatment Not on filedocumented as of this encounter Visit Diagnoses Not on filedocumented in this encounter Care Teams Hydrostatic Tester Relationship Specialty Start Date End Date Angeles Olsen MD PCP - General 02/26/02 08/28/10 System, Provider Not In PCP - General 08/29/10 06/30/13 documented as of this encounter
--- OUTSIDE RECORDS SUMMARY | 2022-04-16 19:38 | XMS_ITS | Encounter Summary ---
:1955 Author Organization [facility] Address [address] [place] [address] Care Team Providers Name Role Phone Vanessa Mills MD Primary Care Provider Reason for Visit Reason Onset Date Comments Pre Visit Planning - Done 01/12/2014 LM requesting pt arrive 15 minutes early. Forms 01/12/2014 ARELIS-7 & PHQ- prepped Health Maintenance 01/12/2014 Due for colonoscopy, DEXA, Pap smear, PHQ-9 & ARELIS-7 Encounter Details Date Type Department Care Team Description 01/12/2014 PRE VISIT [facility] Vanessa Mills Pre Visit Planning - [facility] Condomini MD Vanessa Done (LM requesting pt Building [address] [place] A arrive 15 minutes [address] [place], [place] early. 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 Pre Visit Planning - Done LM requesting pt arrive 15 minutes early. ??? Forms ARELIS-7 & PHQ- prepped ??? Health Maintenance Due for colonoscopy, DEXA, Pap smear, PHQ-9 & ARELIS-7 History on file includes the following; Colonoscopy/Fit Card: 05/02/2008 Due every 5 years Mammogram: Bilateral masectomy Pap Smear: 12/05/10 DEXA: 04/11/2006 Health Maintenance Due Topic Date Due ??? ADVANCE DIRECTIVE PLANNING Q5 YRS (NO INBASKET) 1972 ??? TSH Q1 YEAR (NO INBASKET) 11/23/2008 ??? COLONOSCOPY Q5 YR INBASKET MESSAGE 04/29/2013 ??? TETANUS Q10 YR 08/30/2013 ??? PAP Q3 YR NO INB MSG 12/05/2013 ??? INFLUENZA VACCINE (SYSTEM ASSIGNED) 05/18/2014 ??? DEXA Q3 YR 01/14/2016 ??? LIPID MONITORING Q5 YEARS (NO INBASKET) 01/13/2018 Antwan Herrera CMA 01/12/2014 11:25 AM documented in this encounter Plan of Treatment Not on filedocumented as of this encounter Visit Diagnoses Not on filedocumented in this encounter Care Teams Ring Stamper Relationship Specialty Start Date End Date Vanessa Mills MD PCP - General Internal Medicine 07/01/[address] [place] [id number] documented as of this encounter
--- OUTSIDE RECORDS SUMMARY | 2022-04-16 19:38 | XMS_ITS | Encounter Summary ---
:1955 Author Organization [facility] Address [address] [place] [address]. [place] [address] Care Team Providers Name Role Phone Angeles Olsen MD Primary Care Provider Reason for Visit [facility] (Routine) - Closed Specialty Diagnoses / Procedures Referred By Contact Refer red To Contact Santana Jones DO [facility] [address] [place], [place] [address] Referral ID Status Reason Start Date Expiration Date Visits Requ ested Visits Authorized HP - LEG Closed 09/11/2009 08/17/2010 20 18 Encounter Details Date Type Department Care Team Description 10/04/2009 Therapy Visit [facility] for Cirilo Rey PT Hamstring Muscle Athletic Medicine - [facility] Strain (Primary Dx) [facility] [id number] [facility] [place] [address] [address] [place], [place] [address] [place], [place] [phone] (Work) [phone] Social History Tobacco Use Types Packs/Day Years Used Date Never Smoker Alcohol Use Standard Drinks/Week Comments Yes 0 (1 standard drink = 0.6 oz pure alcoho l) 1 glass of wine per week 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 Date Recorded 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 SUBJECTIVE Subjective changes noted by patient: 95% better. Current pain level is 1/10. Previous pain level was: 5/10 Changes in function: Yes (See Goal flowsheet attached for changes in current functional level) Adverse reaction to treatment or activity: None OBJECTIVE Changes noted in objective findings: Left HS MMT 5/5 with v. Mild strain sensation ASSESSMENT/PLAN Updated problem list and treatment plan: Diagnosis 1: Left HS strain DC STG/LTGs have been met or progress has been made towards goals: Yes (See Goal flow sheet completed today.) Assessment of Progress: The patient's condition is improving. The patient has met all of their terminal computer operator goals. Self Management Plans: Patient has been instructed in a home treatment program. Valeri continues to require the following intervention to meet STG and LTG's: PT intervention is no longer required to meet STG/LTG. Recommendations: This patient is ready to be discharged from therapy and continue their home treatment program. Medicare/Medicaid Certification period: NA This patient does not have Medicare/Medicaid. Please refer to the daily flowsheet for treatment today and total treatment time. DING MACHINE TENDER documented in this encounter Plan of Treatment Not on filedocumented as of this encounter Procedures Procedure Name Priority Date/Time Associated Diagnosis Comme nts C THERAPEUTIC Routine 10/04/2009 5:53 PM Hamstring Muscle EXERCISES ROUNDING MACHINE TENDER Strain [facility] ELECTRIC STIMULATION Routine 10/04/2009 5:53 PM Hamstring Muscle THERAPY ROUNDING MACHINE TENDER Strain documented in this encounter Visit Diagnoses Diagnosis Hamstring muscle strain - Primary Sprain and strain of unspecified site of knee and leg documented in this encounter Care Teams Test Cell Technician Relationship Specialty Start Date End Date Angeles Olsen MD PCP - General 02/26/02 08/28/10 documented as of this encounter
--- OUTSIDE RECORDS SUMMARY | 2022-04-16 19:38 | XMS_ITS | Encounter Summary ---
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 Message Pt was at an last night due to a foot problem and her blood pressure was 157/98. Wanted Gene Vale to know as blood pressure was up a little at her last visit. Plan Plan: Task sent to Jacquelyn. [facility] Caller verbalized understanding of plan. Signature Signed By: Shireen Garcia R.N.; 07/30/2011 1:13 PM ASSET PROTECTION DETECTIVE. documented in this encounter Plan of Treatment Not on filedocumented as of this encounter Visit Diagnoses Not on filedocumented in this encounter Care Teams Butcher Helper Relationship Specialty Start Date End Date System, Provider Not In PCP - General 08/29/10 06/30/13 documented as of this encounter
--- OUTSIDE RECORDS SUMMARY | 2022-04-16 19:38 | XMS_ITS | Encounter Summary ---
:1955 Author Organization [facility] Address [address] [place] [address] Care Team Providers Name Role Phone Vanessa Mills MD Primary Care Provider Reason for Visit Reason Onset Date Comments Refill Request 11/12/2013 Encounter Details Date Type Department Care Team Description 11/12/2013 Refill [facility] Vanessa Mills, [facility]ill [facility] Cond[facility] rai MD [address] 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
--- OUTSIDE RECORDS SUMMARY | 2022-04-16 19:38 | XMS_ITS | Encounter Summary ---
:1955 Author Organization [facility] Address [address] [place] [address] Care Team Providers Name Role Phone System, Provider Not In Primary Care Provider Unavailable Encounter Details Date Type Department Care Team Description 01/08/2012 Historic Results [facility] Maxine Corral [facility] Cond[facility] Building XXX RESIGNED XXX 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 COMPREHENSIVE Routine 01/08/2012 10:46 Results fo r this METABOLIC PANEL AM CDT procedure ar e in (LABDAQ) the results section. documented in this encounter Results Lipid Panel (LabDAQ) (01/08/2012 10:46 AM CDT) [facility] Method Time Signature FASTING SPECIMEN Yes [facility] RESULTS Cholesterol 195.0 0.0 - [facility] 200.0 RESULTS HDL Cholesterol 68.0 >50.0 [facility] RESULTS Triglycerides 116.0 0.0 - [facility] 150.0 RESULTS Cholesterol/HDL 2.9 0.0 - 5.0 [facility] Ratio RESULTS LDL Cholesterol 104.0 0.0 - [facility] Direct 129.0 RESULTS VLDL-Cholesterol 23.0 7.0 - 32.0 [facility] AL RESULTS Specimen Anatomical Collection Method Collection Time Receive d Time (Source) Location / / Volume Laterality 01/08/2012 10:46 01/08/2012 AM CDT 10:46 AM CDT Maxine Corral PA-C LAB - LAB[facility]Q Performing Organization Address City/State/ZIP Code Phon e Number [facility] RESULTS Comprehensive Metabolic Panel (LabDAQ) (01/08/2012 10:46 AM CDT) P athologist Signature Glucose 92.0 60.0 - [facility] HISTORICAL 109.0 RESULTS mg/dL Urea Nitrogen 18.0 7.0 - 30.0 [facility] mg/dL RESULTS Calcium 9.4 8.5 - 10.4 [facility] mg/dL RESULTS Creatinine 0.6 0.6 - 1.3 [facility] mg/dL RESULTS eGFR Calculated 109.5 >60.0 [facility] (Non Black RESULTS Reference) eGFR Calculated 132.5 >60.0 [facility] (Black RESULTS Reference) Sodium 142.0 133.0 - [facility] 144.0 RESULTS mmol/L Potassium 5.0 3.4 - 5.3 [facility] mmol/L RESULTS Chloride 100.0 94.0 - [facility] 109.0 RESULTS mmol/L Carbon Dioxide 30.0 20.0 - [facility] 32.0 RESULTS mmol/L Albumin 4.1 3.2 - 4.5 [facility] g/dl RESULTS Alkaline 61.0 40.0 - [facility] Phosphatase 150.0 u/l RESULTS ALT 36.0 0.0 - 50.0 [facility] u/l RESULTS AST 32.0 0.0 - 45.0 [facility] u/l RESULTS Bilirubin Total 0.6 0.2 - 1.3 [facility] mg/dL RESULTS Protein Total 7.4 6.8 - 8.8 [facility] g/dl RESULTS Specimen Anatomical Collection Method Collection Time Receive d Time (Source) Location / / Volume Laterality 01/08/2012 10:46 01/08/2012 AM CDT 10:46 AM CDT Maxine Corral PA-C LAB - LABDAQ Performing Organization Address City/State/ZIP Code Phon e Number [facility]ISTORICAL RESULTS documented in this encounter Visit Diagnoses Not on filedocumented in this encounter Care Teams Head Pastry Chef Relationship Specialty Start Date End Date System, Provider Not In PCP - General 08/29/10 06/30/13 documented as of this encounter
--- OUTSIDE RECORDS SUMMARY | 2022-04-16 19:38 | XMS_ITS | Encounter Summary ---
:1955 Author Organization [facility] Address [address] [place] [address]. 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 She comes to [facility] to establish care and for a general checkup. Her past history is significant for history of breast cancer in the right breast. She had ductal carcinoma in situ diagnosed and she underwent mastectomy of the right breast and then underwent prophylactic mastectomy of the left breast which was unaffectedby the disease. She's done quite well post surgery. She did not require radiation or any chemotherapy. She had reconstruction surgery and is doing well with that. She also has a history of osteoarthritis and possibly rheumatoid arthritis. 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 The small joints of her hands and feet are mainly involved. Her symptoms have been relatively stable. She also has a history of some tension headaches, and hypothyroidism. These are both stable and she's followed by an building construction supervisor for her thyroid disease. She has a history of depression and reports that the symptoms have been stable. She needs refills on her medication. Finally, she's here for concern of a lump in the floor of her mouth on the right hand side. She first noticed it in July of 2009. She cannot recall any injury. The lump is painless. She also notices that the lymph node under her jaw on the right hand side is also slightly tender and enlarged at times. She thinks her voice is also strained and she's wondering if it's related to this. She has a history of heartburn but has not had any recent exacerbations. She does have hot flashes so she does get night sweats. No fevers or significant weight loss. No pain with chewing or swallowing. She did not have any redness or warmth or the jaw or the mouth. No problems with eating sour foods. She's very worried about mouth cancer as she had a niece that mouth or esophageal cancer and theniece did not smoke or drink alcohol. PAST MEDICAL HISTORY: 1. 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 Hypothyroidism, followed by building construction supervisor. Rheumatoid arthritis/osteoarthritis - hands, toes and shoulders are affected. Tension headaches. TMJ arthritis. Female stress incontinence. Postmenopausal - surgical, no longer on hormone replacement therapy. History of colonic polyps. Hyperlipidemia - LDL goal is less than 130. Depression. PAST SURGICAL HISTORY: Bilateral mastectomy in 2006, appendectomy, carpel tunnel release, toe surgery, total abdominal hysterectomy and bilateral oophorectomy in August of 2002. Colonoscopy in 2004, due in 2009 for an adenoma. Thyroidectomy in July of 2007. Gallbladder surgery in May of 2009. CURRENT MEDICATIONS: Levothyroxine 175 microgram dose daily, Plaquenil 200 mg tablet, take one p.o. b.i.d., fluoxetine 20 mg tablet daily, vitamin D 1000 IU daily, calcium with vitamin D 600/200, one tablet daily, piroxicam 20 mg dose daily, multivitamin one daily, vitamin C 500 mg daily, fish oil 1000 mg dose daily. She has allergies to Ancef which causes a rash. She has nausea when she uses meperidine and morphine. FAMILY HISTORY: Heart disease in hier father who had an KS at age 53. Her father also had Parkinson's. Her mother suffered from headaches and arthritis. Hypertension in a mother and two brothers. Stroke in a maternal grandmother. Osteoporosis in a paternal grandmother. A brain aneurysm in a paternal gr andmother. Osteoporosis in her mother and paternal grandmother. There is a niece with squamous cell carcinoma of the tongue at age 42. There is no family history of breast cancers or colon cancers. HEALTH CARE MAINTENANCE: Last colonoscopy was in April of 2008. Last Pap smear was in January of 2009. Last mammogram was in February of 2007. IMMUNIZATIONS: Her last tetanus booster was in 2003. SOCIAL HISTORY: She's . She has two children. 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 She's never been a smoker. Drinks alcohol, once a week. Caffeine two per day. Calcium two servings per day. Exercise five times per week for roughly 30 minutes. PHQ-2 score is 0, PHQ-9 score is 2. REVIEW OF SYSTEMS: General fatigue, no changes in weight. She does have hot flashes from menopausal symptoms. Eyes: no acute vision changes. Ears, nose throat: Sore at the right side of her tongue as well as a fullness at the floor of the mouth on the right hand side and swelling along the submandibular area on the right for the past four to five months. She also reports more hoarse voice. Cardiovascular: Occasional palpitations but no associated near syncope or dizziness. No chest pain, respiratory, no cough, short of breath or wheezing. GI has chronic constipation and uses a probiotic and Colace as needed with good relief. : Some urinary incontinence - stable. Musculoskeletal: Feet, and hands are affected by arthritis and they are stable. Skin negative for acute rashes. Neurologic history of tension headaches that happen mainly on the right side of her head and neck. Psychiatric history of depression which is currently stable. Heme: No bleeding or clotting disorders. OBJECTIVE: Her temperature is 98.2, blood pressure 130/83, heart rate 62, heart 64.25 inches, weightis 190, BMI 32.4. In general this is a very pleasant woman, no acute distress. HEENT: PERRL, EOMI. TMs normal. Nares are clear. OP is moist. There is some petechia at the right lateral aspect of the tongue. I cannot appreciate any ulcerations or masses there. The floor of the mouth appears unremarkable and I can palpate the submandibular salivary glands that appar symmetric left more than right. There is no particular tenderness there. Neck is supple. There is no adenopathy. The submandibular glandsappear symmetric and there is slightly more fullness at the right side but it's not hard or concernin g. There is no thyromegaly. Heart regular S1, S2, no murmurs. Breasts are reconstructed. There is nooverlying skin changes. There is saline breast implants noted. Axilla are negative for adenopathy bilaterally. Lungs are clear to auscultation bilaterally. The abdomen is soft, there is good bowel sounds, no organomegaly. Extremities are warm. There is no peripheral edema. exam is deferred. Neurological exam: Cranial nerves II-XII are grossly intact. DTRs at the patella and biceps tendons are symmetric and normal. ASSESSMENT AND PLAN: 1. General checkup, Valeri is doing well. She's a bit overweight and we discussed strategies for gradual weight loss and to continue with her exercise program, possibly lengthening it or making it moreintense to achieve ideal body weight. She discussed adequate calcium and vitamin D level. She no longer needs Pap smears as she's had IZAIAH/BHO. She no longer needs mammograms because of her bilateral mastectomies. However, I asked her to monitor for any masses around the implants and also to monitor for skin changes. She's up-to-date on health care maintenance with coloscopy and immunizations. She's fasting today. Will check a CBC today. She has a history of an adenomatous polyp. Hyperlipidemia/goal is less than 130. She has a strong family history of heart disease. She's not currently on any medications for cholesterol except for the fish oil. Will check fasting lipid profile as well as comprehensive metabolic panel. Hypothyroidism, she's followed by an building construction supervisor, no labs were drawn here. Submandibular fullness. Valeri is worried that she has a mouth cancer. There is no obvious asymmetryat the floor of the mouth upon palpation and I cannot appreciate a distinct lesion at the side of the tongue other than some petechia. Her submandibular gland in the right side is slightly full but there is no unusual firmness to the gland. I've referred her to ENT specialty care for a full evaluationgiven her family history. Also, they may evaluate her concern about a hoarse voice. Informed her that a hoarse voice might be a symptom of heartburn acid coming up to the top of the throat while she's sleeping and trickling down into the trachea. Recommended she use omeprazole or other acid blocking medication regularly. Arthritis, her symptoms are currently stable. She's on the piroxicam and Plaquenil. Comprehensive metabolic panel is ordered today. Depression. She's currently on fluoxetine 20 mg dose daily. PHQ-9 score is two. Refilled medicationsfor her. Vanessa Mills MD KRISTY:11 Electronically signed by:Vanessa Mills M.D. Jan 01 2010 3:59PM APPLIANCE INSTALLER documented in this encounter Plan of Treatment Not on filedocumented as of this encounter Visit Diagnoses Not on filedocumented in this encounter Care Teams Travel Physical Therapist Relationship Specialty Start Date End Date Angeles Olsen MD PCP - General 02/26/02 08/28/10 System, Provider Not In PCP - General 08/29/10 06/30/13 documented as of this encounter
--- OUTSIDE RECORDS SUMMARY | 2022-04-16 19:38 | XMS_ITS | Encounter Summary ---
:1955 Author Organization [facility] Address [address] [place] [address]. [place] [address] Care Team Providers Name Role Phone System, Provider Not In Primary Care Provider Unavailable Encounter Details Date Type Department Care Team Description 12/05/2010 Historic Results [facility] Vanessa Rasheed 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 documented in this encounter Results Lipid Panel ([facility]) (12/05/2010 1:41 PM CDT) [facility] Method Time Signature FASTING SPECIMEN yes [facility] RESULTS Cholesterol 186.0 0.0 - [facility]ORICAL 200.0 RESULTS HDL Cholesterol 67.0 >50.0 [facility] RESULTS Triglycerides 108.0 0.0 - [facility]OR[facility] 150.0 RESULTS Cholesterol/HDL 2.8 0.0 - 5.0 [facility] Ratio RESULTS LDL Cholesterol 97.0 0.0 - [facility]OR[facility] Direct 129.0 RESULTS VLDL-Cholesterol 22.0 7.0 - 32.0 [facility] AL RESULTS Specimen Anatomical Collection Method Collection Time Receive d Time (Source) Location / / Volume Laterality 12/05/2010 1:41 PM 1 1:41 CDT PM CDT Vanessa Mills MD LAB - [facility] Performing Organization Address City/State/ZIP Code Phon e Number [facility]OR[facility] RESULTS documented in this encounter Visit Diagnoses Not on filedocumented in this encounter Care Teams Block Saw Operator Relationship Specialty Start Date End Date System, Provider Not In PCP - General 08/29/10 06/30/13 documented as of this encounter
--- OUTSIDE RECORDS SUMMARY | 2022-04-16 19:38 | XMS_ITS | Encounter Summary ---
:1955 Author Organization [place] Address [address] [place] [address] Care Team Providers Name Role Phone Getachew Mills MD Primary Care Provider [phone] Reason for Visit Reason Comments Physical Fasting Encounter Details Date Type Department Care Team Description 01/13/2014 Office Visit [facility] Getachew Mills Routine general medical exam ination at a health care facility (Primary Dx); Phill Mendez MD HYPOTHYROIDISM NOS; Building [address] [place] Hyperlipidemia LDL goal <130 ; 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 She is fasting. She is due for eye exams and dental visits. She is due for Tdap booster. She reports when she was small, she had a seizure after receiving a vaccine for tetanus,diptheria and pertussis. We discussed the fact that the vaccine was changeddue to patients suffering seizures as a side effect. She would like to update it today. Wears seat belt. Concerns today: Weight gain 20 pound weight gain in the past 6 months. She attributes this to having had foot surgery and not being able to exercise. She tells me she is now walking at least a mile a day. She is going to try to make a concerted effort with weight loss. Trigger finger She has a trigger finger on the right hand, 4th finger. She has an appt to see Dr. Bello, hand surgeon for evaluation. She is left hand dominant. Lymphadenopathy She is concerned about an enlarged LN at the left groin. No axillary adenopathy. Radon Exposure She reports her home was tested for Radon and that it is present. She is asking whether she should have a chest x ray. Hypothyroidism She follows with an mercerizing range controller Depression She takes fluoxetine 40mg daily. PHQ9 score is 0, ARELIS 7 score is 2. She would like to continue medication. HTN She is on HCTZ 25mg per day. No chest pain , no leg edema. Non smoker. Rash She has a red rash at her groin, mildly red and itchy. Worse in the summer when she is sweating. Health Maintenance Topic Date Due ??? ADVANCE DIRECTIVE PLANNING Q5 YRS (NO INBASKET) 1972 ??? TSH Q1 YEAR (NO INBASKET) 11/23/2008 ??? TETANUS Q10 YR 08/30/2013 ??? PAP Q3 YR NO INB MSG 12/05/2013 ??? INFLUENZA VACCINE (SYSTEM ASSIGNED) 05/18/2014 ??? DEXA Q3 YR 01/14/2016 ??? LIPID MONITORING Q5 YEARS (NO INBASKET) 01/13/2018 ??? COLONOSCOPY Q10 YR INBASKET MESSAGE 04/16/2023 Patient Active Problem List Diagnosis ??? HEADACHE [...] due 2022 ??? Carpal tunnel release rt/lt Family History Problem Relation Age of Onset ??? C.A.D. Father [place] 53, at 58 ??? Neurological Father Parkinsons [...] ??? 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 Patient has had a hysterectomy. Hx abnormal pap? no STD hx? no cycle length: na dysmenorrhea/PMS: na Vasomotor sx: yes Contraception: na G 3 P 2 A 1 Self Breast exam: S/p mastectomy with bilateral reconstruction. Current Outpatient Prescriptions Medication Sig Dispense Refill ??? hydrochlorothiazide (HYDRODIURIL) 25 MG tablet Take 1 tablet (25 mg) by mouth daily 90 tablet 1 ??? FLUoxetine (PROZAC) 40 MG capsule Take 1 capsule by mouth daily. 30 capsule 11 ??? LEVOTHYROXINE SODIUM 175 MCG OR TABS [...] habits :NEGATIVE for frequency, dysuria, or hematuria MUSCULOSKELETAL:NEGATIVE for significant arthralgias or myalgia NEURO: NEGATIVE for weakness, dizziness or paresthesias ENDOCRINE: NEGATIVE for polyuria/dipsia, temperature intolerance, skin/hair changes HEME/ALLERGY/IMMUNE: NEGATIVE for bleeding problems PSYCHIATRIC: NEGATIVE for changes in mood or affect EXAM BP 138/85 Pulse 62 Temp(Src) 98 ??F (36.7 ??C) (Oral) Ht 5' 3.5 (161.3 cm) Wt 187 lb (84.823 kg) BMI 32.6 kg/m2 SpO2 99% GENERAL APPEARANCE: Alert, pleasant, NAD, overweight EYES: PERRL, EOMI, conjunctiva clear HENT: TM normal bilaterally. Nose and mouth without lesions NECK: no adenopathy, thyroid absent, well healed scar at base of neck. RESP: lungs clear to auscultation bilaterally BREAST: bilateral implants after previous bilateral mastectomy. No axillary adenopathy CV: regular rate and rhythm, normal S1 S2, no murmur, no carotid bruits ABDOMEN: soft, nontender, without HSM or masses. Bowel sounds normal : palpable 1cm smooth, and freely mobile LN at left groin. No overlying redness, smaller adjacent LN on left, small freely mobile LN at right groin. Mild erythema at tops of thighs No vaginal or bimanual exam is done. RECTAL EXAM: Not done MS: deformities of fingers, toes, no current red, warm or swollen joints SKIN: no suspicious lesions or rashes NEURO: Normal strength and tone, sensory exam grossly normal, DTR normoreflexive in upper and lower extremities PSYCH: mentation appears normal. and affect normal/bright. EXT: no peripheral edema, pedal pulses palpable Assessment: (V70.0) Routine general medical examination at a health care facility (primary encounter diagnosis) Comment: healthy woman, multiple medical problems, stable Plan: CBC with platelets, Lipid Panel ([facility]), Comprehensive Metabolic Panel ([facility]) Anticipatory guidance given today regarding diet, exercise and calcium intake, safety. Recommend weight loss, sensible diet, regular exercise program. Bring Tdap up to date. Other HCM up to date. She follows with the oncologist for breast cancer. She is up to date on colonoscopy. She reports Radon exposure, which gives higher risk to develop lung cancer. There are no set guidelines to screen patients. Would offer CXR, she can do this at her convenience at [facility]. (244.9) HYPOTHYROIDISM NOS Comment: Followed by Dr. Hull Plan: follow up with specialist for medical management (272.4) Hyperlipidemia LDL goal <130 Comment: fasting today, no current medications Plan: LDL goal <130, recommend dietary and lifestyle changes (401.9) HTN (hypertension) Comment: good control Plan: hydrochlorothiazide (HYDRODIURIL) 25 MG tablet No change in medication (309.0) Adjustment disorder with depressed mood Comment: doing well on prozac Plan: FLUoxetine (PROZAC) 40 MG capsule Refilled med. (V06.1) Need for Tdap vaccination Comment: due for booster Plan: TDAP (ADACEL AGES 11-64), VACCINE ADMINISTRATION, INITIAL Given today (112.3) Cutaneous candidiasis Comment: mild Plan: nystatin (MYCOSTATIN) ointment Topical nystatin mixed with hydrocortisone prn Getachew Mills MD Internal Medicine/Pediatrics documented in this encounter Nursing Notes Ramona Heather - 01/13/2014 12:50 PM CDT 58 year old Chief Complaint Patient presents with ??? Physical Fasting Blood pressure 138/85, pulse 62, temperature 98 ??F (36.7 ??C), temperature source Oral, height 5' 3.5 (161.3 cm), weight 187 lb (84.823 kg), SpO2 99 %. Body mass index is 32.6 kg/(m^2). Patient Active Problem List Diagnosis ??? HEADACHE ??? OSTEOARTHROS NOS-OTHER SITE ??? FEMALE STRESS INCONTINENCE ??? MENOPAUSAL DISORDER NEC ??? iamLUMBAGO ??? HYPOTHYROIDISM NOS ??? OBESITY NOS ??? DUCTAL CARCINOMA IN SITU ??? Constipation ? ? HYPERLIPIDEMIA LDL GOAL <130 ??? Hypertension ??? Major depression, chronic Wt Readings from Last 2 Encounters: 01/13/14 187 lb (84.823 kg) 10/13/13 184 lb (83.462 kg) BP Readings from Last 3 Encounters: 01/13/14 138/85 10/13/13 148/84 05/19/13 151/83 Current Outpatient Prescriptions Medication ??? hydrochlorothiazide (HYDRODIURIL) 25 MG tablet ??? [...] TSH Q1 YEAR (NO INBASKET) 11/23/2008 ??? TETANUS Q10 YR 08/30/2013 ??? PAP Q3 YR NO INB MSG 12/05/2013 ??? INFLUENZA VACCINE (SYSTEM ASSIGNED) 05/18/2014 ??? DEXA Q3 YR 01/14/2016 ??? LIPID MONITORING Q5 YEARS (NO INBASKET) 01/13/2018 ??? COLONOSCOPY Q10 YR INBASKET MESSAGE 04/16/2023 PAP NIL 12/05/2010 January 13, 2014 12:50 PM Rooming requirements completed by MA student Heather Carty under my supervision. Kaylen Flood CMA documented in this encounter Miscellaneous Notes Addendum Note - Wilmer Kinsey - 01/24/2014 9:54 AM CDT Addended by: WILMER KINSEY on: 01/24/2014 09:54 AM Modules accepted: Orders, SmartSet Addendum Note - Getachew Mills MD - 01/15/2014 10:46 PM CDT Addended by: GETACHEW MILLS on: 01/15/2014 10:46 PM Modules accepted: Orders documented in this encounter Plan of Treatment Not on filedocumented as of this encounter Procedures Procedure Name Priority Date/Time Associated Comments Diagnosis LIPID PANEL (LABDAQ) Routine 01/13/2014 1:53 PM Routine genera l Results for this CDT medical examination procedur e are in at a health care the results facility section. COMPREHENSIVE Routine 01/13/2014 1:53 PM Routine general Resul ts for this METABOLIC PANEL CDT medical examination proce viktoriya are in (LABDAQ) at a health care the results facility section. CBC WITH PLATELETS Routine 01/13/2014 1:53 PM Routine general Results for this CDT medical examination procedur e are in at a health care the results facility section. PHQ-9 DEPRESSION Routine 01/13/2014 Adjustment disorder Resu lts for this SCREENING ORDER with depressed mood proce dure are in the results section. GENERAL ANXIETY Routine 01/13/2014 Adjustment disorder Resul ts for this DISORDER QUESTIONNAIRE with depressed moo d procedure are in (ARELIS-7) the results section. documented in this encounter Results Comprehensive Metabolic Panel ([facility]) (01/13/2014 1:53 PM CDT) athologist Signature Glucose 93.0 60.0 - [facility] 109.0 [facility] mg/dL Urea Nitrogen 17.0 7.0 - 30.0 [facility] mg/dL [facility] Calcium 9.2 8.5 - 10.4 [facility] mg/dL [facility] Creatinine 0.8 0.6 - 1.3 [facility] mg/dL [facility] eGFR Calculated 78.0 >60.0 [facility] (Non Black [facility] Reference) eGFR Calculated 94.4 >60.0 [facility] (Black [facility] Reference) Sodium 136.0 133.0 - [facility] 144.0 [facility] mmol/L Potassium 4.1 3.4 - 5.3 [facility] mmol/L [facility] Chloride 102.0 94.0 - [facility] 109.0 [facility] mmol/L Carbon Dioxide 30.0 20.0 - [facility] 32.0 [facility] mmol/L Albumin 4.3 3.2 - 4.5 [facility] g/dL [facility] Alkaline 63.0 40.0 - [facility] Phosphatase 150.0 U/L [facility] ALT 25.0 0.0 - 50.0 [facility] U/L [facility] AST 26.0 0.0 - 45.0 [facility] U/L [facility] Bilirubin Total 0.7 0.2 - 1.3 [facility] mg/dL [facility] Protein Total 7.4 6.8 - 8.8 [facility] g/dL [facility] Specimen Anatomical Collection Method Collection Time Receive d Time (Source) Location / / Volume Laterality Blood specimen VENOUS BLOOD / 01/13/2014 1:53 PM 01/13 1:54 (specimen) Unknown CDT PM CDT Getachew Mills MD LAB - [facility] Performing Organization Address City/State/ZIP Code Phon e Number [facility] [address] [place], [place] [address] [address] [facility] [address] [place] [phone] A (ABNORMAL) Lipid Panel ([facility]) (01/13/2014 1:53 PM CDT) Patholo gist Method Time Signature FASTING SPECIMEN Yes [facility] Cholesterol 209.0 (H) 0.0 - [facility] 200.0 [facility] HDL Cholesterol 72.0 >50.0 [facility] Triglycerides 87.0 0.0 - [facility] 150.0 [facility] Cholesterol/HDL 2.9 0.0 - 5.0 [facility] Ratio [facility] LDL Cholesterol 120.0 0.0 - [facility] Direct 129.0 [facility] VLDL-Cholesterol 17.0 7.0 - [facility] 32.0 [facility] Specimen Anatomical Collection Method Collection Time Receive d Time (Source) Location / / Volume Laterality Blood specimen VENOUS BLOOD / 01/13/2014 1:53 PM 01/13 1:54 (specimen) Unknown CDT PM CDT Getachew Mills MD LAB - LABDAQ Performing Organization Address City/State/[facility] Code Phon e Number [facility] [address] [place] [address] [address] [facility] [address] [place] [id number] A CBC with platelets (01/13/2014 1:53 PM CDT) P athologist Signature WBC 4.2 4.0 - 11.0 [facility] 10e9/L [facility] RBC Count 4.28 3.8 - 5.2 [facility] 10e12/L [facility] Hemoglobin 13.0 11.7 - [facility] 15.7 g/dL CAMPUS LABS Hematocrit 38.9 35.0 - [facility] 47.0 % CAMPUS LABS MCV 91 78 - 100 [facility] fl CAMPUS LABS MCH 30.4 26.5 - [facility] 33.0 pg CAMPUS LABS MCHC 33.4 31.5 - [facility] 36.5 g/dL CAMPUS LABS RDW 14.1 10.0 - [facility] 15.0 % [facility]AMP[facility] LABS Platelet Count 282 150 - 450 [facility] 10e9/L [facility] Specimen Anatomical Collection Method Collection Time Receive d Time (Source) Location / / Volume Laterality Blood specimen VENOUS BLOOD / 01/13/2014 1:53 PM 01/13 2:11 (specimen) Unknown CDT PM CDT Getachew Mills MD LAB - BLOOD ORDERABLES Performing Organization Address City/State/ZIP Code Phon e Number [facility] [address] [place] [address] [facility] GENERAL ANXIETY DISORDER QUESTIONNAIRE (ARELIS-7) (01/13/2014) Narrative Wilmer Kinsey - 01/13/2014 GAD7 score: 2 Getachew Mills MD OTHER PHQ-9 ORDER - select when completing PHQ-9 (01/13/2014) Narrative Wilmer Kinsey - 01/13/2014 Last PHQ-9 score on record= 0, Getachew Mills MD OTHER documented in this encounter Visit Diagnoses Diagnosis Routine general medical examination at a health care facility - Primary HYPOTHYROIDISM NOS Unspecified hypothyroidism Hyperlipidemia LDL goal <130 Other and unspecified hyperlipidemia HTN (hypertension) Unspecified essential hypertension Adjustment disorder with depressed mood Need for Tdap vaccination Need for prophylactic vaccination with c ombined zaheoegleg-pobsgmt-fvrzayixw (DTP) vaccine Cutaneous candidiasis Candidiasis of skin and nails documented in this encounter Care Teams Coupon Collection Clerk Relationship Specialty Start Date End Date Getachew Mills MD PCP - General Internal Medicine 07/01/[address] [place] [address] documented as of this encounter
--- OUTSIDE RECORDS SUMMARY | 2022-04-16 19:38 | XMS_ITS | Encounter Summary ---
:1955 Author Organization [place] Address Replaced by [facility] [place] [address] Care Team Providers Name Role Phone Angeles Olsen MD Primary Care Provider [phone] Reason for Visit Reason Comments Eye Problem pt noticed lesion above L ey e 4 days ago--eye was red 1 day ago--another lesion appeared 1 day ago-so me sticky matter in am only --eye is burning and swollen Encounter Details Date Type Department Care Team Description 06/13/2010 Office Visit [facility] Joellen Curiel MD Herpes zoster (Primary Dx); Clinic [place] [address] [address] Unspecified essential hypertension [address] [place] [id number] Social History Tobacco Use Types Packs/Day Years Used Date Never Smoker Alcohol Use Standard Drinks/Week Comments Yes 0 (1 standard drink = 0.6 oz pure alcoho l) 1 glass of wine per week 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 Date Recorded 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 Left eye red and irritated. Did see eye doctor today; noted lesions above left eye and wondered about shingles. He did say her cornea and retina looked good. He did prescribe some drops. Initially, had a Spot on Friday. Yesterday, mid morning is when the eye was blood shot. Stung and burned throughout the day Noted second lesion last night. This am, eye was shut. No pussy discharge. Not too watery. Is itchy. Sores are not painful. Does have a headache behind eye. Patient Active Problem List Diagnoses Code ??? HEADACHE 784.0 ??? OSTEOARTHROS NOS-OTHER SITE 715.98 ??? FEMALE STRESS INCONTINENCE 625.6 ??? MEDICAL HISTORY OF - [id number] ??? MENOPAUSAL DISORDER NEC 627.8 ??? PURE HYPERCHOLESTEROLEM 272.0 ??? iamLUMBAGO 724.2 ??? HYPOTHYROIDISM NOS 244.9 ??? OBESITY NOS 278.00 ??? DUCTAL CARCINOMA IN SITU 174.9 ??? Constipation 564.00A ??? Unspecified Essential Hypertension 401.9 ??? Depressive Disorder, not Elsewhere Classified 311 ? ? HYPERLIPIDEMIA LDL GOAL <130 272.4CK OBJECTIVE: EXAM ==== BP 150/88 Pulse 64 Temp(Src) 98.9 ??F (37.2 ??C) (Oral) Wt 87.544 kg (193 lb) GENERAL APPEARANCE: alert and no distress EYES: left eye has scleral injection and is a little watery. No pus. SKIN: above her left eye are 2 lesions, by a couple inches. The larger one (~ 3 mm diameter) is a scab on an erythematous base. The other is smaller and more lateral on her forehead and is a small red bump, ~ 2 mm diameter. Also had Garrett Mane review with me. IMPRESSION and PLAN: 053.9H Herpes zoster (primary encounter diagnosis) Comment: suspected; not confirmed. Discussed possibly testing, but felt it would not alter what we did and may also have some error involved. My biggest concern would be for the eye; but she is alreadyunder the supervision of an eye doctor. Plan: ValACYclovir (VALTREX) 1 GM tablet Discussed medication; we did get her started. Given patient education materials from computer database. 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 401.9 Unspecified essential hypertension Comment: was taken off bp medication a year ago; notes overall has been fine. She is concerned currently as her mother develped ongoing problems with her eye and cheek p shingles Plan: recommend rechecking bp in the next few weeks. Sees Dr. Duggan in her new office as PCP. documented in this encounter Nursing Notes 06/13/2010 2:30 PM CDT >> MARY BARRIGA Wed Jun 13, 2010 2:43 PM Patient presents with: Eye Problem - pt noticed lesion above L eye 4 days ago--eye was red 1 day ago--another lesion appeared 1 day ago-some sticky matter in am only --eye is burning and swollen Initial BP 150/88 Pulse 64 Temp(Src) 98.9 ??F (37.2 ??C) (Oral) Wt 87.544 kg (193 lb) Estimated Body mass index is 33.13 kg/(m^2) as calculated from the following: Height as of 09/07/09: 5' 4(1.626 m). Weight as of this encounter: 193 lb(87.544 kg).. BP completed using cuff size: large Mary Barriga JOURNALISM INTERN (AAMA) documented in this encounter Plan of Treatment Not on filedocumented as of this encounter Visit Diagnoses Diagnosis Herpes zoster - Primary Herpes zoster without mention of complic ation Unspecified essential hypertension documented in this encounter Care Teams Utility Manager Relationship Specialty Start Date End Date Angeles Olsen MD PCP - General 02/26/02 08/28/10 documented as of this encounter
--- OUTSIDE RECORDS SUMMARY | 2022-04-16 19:38 | XMS_ITS | Encounter Summary ---
:1955 Author Organization [place] Address [facility] [place] [address] Care Team Providers Name Role Phone System, Provider Not In Primary Care Provider Unavailable Encounter Details Date Type Department Care Team Description 12/30/2012 Medical Correspondence [facility] Lisa Mills [facility], [facility] MD Vanessa FLUORO. 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
--- OUTSIDE RECORDS SUMMARY | 2022-04-16 19:38 | XMS_ITS | Encounter Summary ---
:1955 Author Organization [facility] Address [address] [place] [address]. 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 documented in this encounter Results A pap thin layer screen (12/05/2010 12:00 AM CDT) Component Value Ref Test Analysis Performed At [facility] Range Method Time Signature PAP NIL COPATH Copath Report COPATH Patient Name: VALERI ROJAS MR#: [id number] Specimen #: [id number] Collected: 12/05/2010 Received: 12/06/2010 Reported: 12/07/2010 09:16 Ordering Phy(s): GETACHEW MILLS SPECIMEN/STAIN PROCESS: Pap thin layer prep screening (Surepath) ? Pap-Cyto x 1, Reflex HPV x 1 SOURCE: Vaginal ---- Pap thin layer prep screening (Surepath) SPECIMEN ADEQUACY: Satisfactory for evaluation. -Transformation zone component absent. CYTOLOGIC INTERPRETATION: Negative for Intraepithelial Lesion or Malignancy Electronically signed out by: MAYURI Ramirez ( ASCP) Processed and screened at [facility] CLINICAL HISTORY: LMP: 2003 Hysterectomy, Papanicolaou Test Limitations: ??Cervical cytology is a scre ening test with limited sensitivity; regular screening is critical for cancer prevention; Pap tests are primarily effective for the diagnosis/prevention of squamous cell carcinoma, not adenoca rcinomas or other cancers. TESTING LAB LOCATION: [address] ??[address] COLLECTION SITE: [facility] [place] [facility] [place] Specimen (Source) Anatomical Collection Method Collection Time Re ceived Time Location / / Volume Laterality 12/05/2010 12/06/2010 10:3 4 AM CDT Getachew Mills MD LAB - [facility] SPECIM EN Performing Organization Address City/State/ZIP Code Phon e Number COPATH documented in this encounter Visit Diagnoses Not on filedocumented in this encounter Care Teams Art Model Relationship Specialty Start Date End Date System, Provider Not In PCP - General 08/29/10 06/30/13 documented as of this encounter
--- OUTSIDE RECORDS SUMMARY | 2022-04-16 19:39 | XMS_ITS | Encounter Summary ---
:1955 Author Organization [facility] Address [facility]ly [facility] [place] [address] Care Team Providers Name Role Phone Angeles Olsen MD Primary Care Provider [phone] Reason for Referral Referral not Required - Closed Specialty Diagnoses / Procedures Referred By Contact Refer red To Contact Diagnoses Dizziness Vanessa Mills MD [facility] [address] [facility] [place], [place] [address] [address] [place] [address] Referral ID Status Reason Start Date Expiration Date Visits Requ ested Visits Authorized [id number] Closed 02/13/2009 08/17/2011 1 1 Reason for Visit Reason Comments Gland swollen neck gland x 3-4 wee ks Abdominal Pain RLQ x 3-4 weeks, no nausea o r vomiting Encounter Details Date Type Department Care Team Description 02/13/2009 Office Visit [facility] Vanessa Mills MD [address] [facility] [place], [place] [id number] Dizziness; Carson Fields MD XXX RESIGNED XXX [address] [facility] [place] [address] Elevated Blood Pressure; [address] RLQ Abdominal Pain; [place] [address] Myalgias [phone] Social History Tobacco Use Types Packs/Day Years Used Date Never Smoker Alcohol Use Standard Drinks/Week Comments Yes 0 (1 standard drink = 0.6 oz pure alcoho l) 1 glass of wine per week 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 Date Recorded 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 No sore throat. Lightheaded, daily headaches. Not hard to swallow. Napping. (not usual for her) Exercise walking 3 miles a day x 1 month. RLQ pain to posterior ribs On and off Worse with walking and with laying on right side. No hx of injury. No fevers. Some hot and cold. Appetite ok no n/v Uses stool softeners. Valeri Keenan is a 53 year old female here for the following issues: DIZZINESS Reports her neck glands have been swollen x 3-4 wks. No sore throat, no overlying skin redness or fever. Feels lightheaded, with daily headaches. Napping lately because of fatigue, which is not usual for her. She has been exercising more with walking, 3 miles a day for the past month. Vague dizziness that has been ongoing for several weeks. Sometimes feels like she might lose her balance, no near syncope. No palpitations or chest pain.. Feels like she might have some nasal congestion, but no seasonal allergies. No hearing loss or tinnitus. Has not taken any medication. ELEVATED BLOOD PRESSURE Last 6 Encounter BP Readings: Date BP 02/13/2009 139/71 12/01/2008 108/68 11/29/2008 102/64 06/30/2008 108/62 05/31/2008 124/72 03/14/2008 110/70 Today, SBP is elevated but this is new for her. Had been on HCTZ in the past but this was stopped and bp seemed to have remained in the normal range. Patient denies any exertional chest pain, dyspnea, palpitations, syncope, or edema. RLQ ABDOMINAL PAIN RLQ pain extending superiorally to posterior ribs. This is intermittent, and not associated with eating or voiding. Pain can be cramping or dull and achy. It becomes worse with walking and with laying on right side. No hx of injury. Denies constipation, does use stool softeners. Valeri is worried thiscould represent a cancer. Has hx of adenomatous polyp 2004. Had repeat colonoscopy 04/2008 which was normal. It was recommended she repeat endoscopy in 5 yrs. Denies BRBPR. No fevers. EXAM BP 139/71 Pulse 63 Wt 189 lb (85.73 kg) LMP Hysterectomy Gen: Alert, pleasant, NAD HEENT: TM normal bilaterally, OP clear, no posterior erythema Neck: no palpable adenopathy. Tenderness with palpation over the anterior belly of the SCM, right side MS: point tenderness at subocciptial m left side plus tender Trapezius m on right side. COR: S1,S2, no murmur Lungs: CTA bilaterally, no rhonchi, wheezes or rales Abdomen: soft, diffuse discomfort with palpation along RLQ, RMQ and RUQ, no guarding, no HSM AXR: no dilated loops or A/F levels. Large amount of stool at right side of colon extending to left upper colon. Lower left colon and rectum without stool. Read by Vanessa Mills MD Internal Medicine/Pediatrics Assessment: 780.4A Dizziness Comment: suspect this may be vestibular problem Plan: CONSULT OTOLARYNGOLOGY (ENT) Refer to ENT for full workup 796.2S Elevated Blood Pressure Comment: isolated elevated reading today Plan:gave BP card with parameters. Pt to take BP outside of clinic and return if she has consistently elevated pressures, at least 25% of the time. 789.03B RLQ Abdominal Pain Comment: suspect constipation, given AXR findings, neg colonoscopy last year Plan: X-RAY ABDOMEN 2 VW Recommend stool softeners for the next month, high fiber diet. Could consider rechecking AXR or CT scan if symptoms persist 729.1M Myalgias Comment: tension in upper back, neck and SCM. No adenopathy or concerning findings Plan: reassured pt, recommend stretches, warm packs Total visit time today 30 minutes. More than 50% of the time was spent in counseling on myalgias, vertigo and strategy to treat abdominal pain. RTC 4-6 wks Vanessa Mills MD Internal Medicine/Pediatrics documented in this encounter Nursing Notes 02/13/2009 1:45 PM CDT >> TAYLOR GALINDO Mon Feb 13, 2009 1:29 PM Patient presents with: Gland - swollen neck gland x 3-4 weeks Abdominal Pain - RLQ x 3-4 weeks, no nausea or vomiting Initial BP 139/71 Pulse 63 Wt 189 lb (85.73 kg) LMP Hysterectomy Estimated Body mass index is 31.45 kg/(m^2) as calculated from: Height of 5' 5 (1.651 m) as of 11/29/08 Weight of 189 lb (85.73 kg) as of this encounter. BP completed using cuff size: large Taylor Galindo CMA documented in this encounter Plan of Treatment Not on filedocumented as of this encounter Procedures Procedure Name Priority Date/Time Associated Comments Diagnosis ZZ CONSULT Routine 01/03/2010 Dizziness OTOLARYNGOLOGY (ENT) HC X-RAY ABDOMEN Routine 02/13/2009 2:45 PM RLQ abdominal pain Results for this COMPLETE CDT procedure are i n the results section. documented in this encounter Results CONSULT OTOLARYNGOLOGY (ENT) (01/03/2010) Narrative This result has an attachment that is no t available. Vanessa Mills MD REFERRAL X-RAY ABDOMEN 2 VW (02/13/2009 2:45 PM CDT) Anatomical Region Laterality Modality Other Specimen (Source) Anatomical Collection Method Collection Time Re ceived Time Location / / Volume Laterality 02/13/2009 2:45 PM CDT Impressions 02/14/2009 10:37 AM CDT ABDOMEN 2-3 VIEWS ??February 13, 2009 2:45 P M HISTORY: Right lower quadrant abdominal pain. IMPRESSION: Flat and upright views of th e abdomen. Bowel gas pattern is unremarkable. No free intraperitoneal air. No abnormal calcifications are evident. Degenerative facet changes are present at L4-L5. Followup CT abdomen and pelvis as clinically warranted. Vanessa Mills MD GENERAL IMAGING documented in this encounter Visit Diagnoses Diagnosis Dizziness Dizziness and giddiness Elevated blood pressure Elevated blood pressure reading without diagnosis of hypertension RLQ abdominal pain Abdominal pain, right lower quadrant Myalgias Mylagia and myositis, unspecified documented in this encounter Care Teams Technical Specialist Relationship Specialty Start Date End Date Angeles Olsen MD PCP - General 02/26/02 08/28/10 documented as of this encounter
--- OUTSIDE RECORDS SUMMARY | 2022-04-16 19:39 | XMS_ITS | Encounter Summary ---
:1955 Author Organization [facility] Address [address] [place] [address]. [place] [address] Care Team Providers Name Role Phone Angeles Olsen MD Primary Care Provider [phone] Reason for Visit Reason Onset Date Comments Refill Request 01/10/2009 HCTZ Encounter Details Date Type Department Care Team Description 01/10/2009 Refill [facility] Vanessa Rasheed Refill Request (HCTZ) [address] [facility] [place] [address] [place] [address] [place] [address] (Wo rk) Social History Tobacco Use Types Packs/Day Years Used Date Never Smoker Alcohol Use Standard Drinks/Week Comments Yes 0 (1 standard drink = 0.6 oz pure alcoho l) 1 glass of wine per week 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 Date 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 Nurse only BP check-12/01/08. BP-108/68. Per My chart message of 12/05/08-Your blood pressure looked fine. Please repeat the blood pressure visit with the nurse in the next 2-3 wks to make sure your blood pressure stays stable, off the HCTZ. Thanks Vanessa Mills MD Internal Medicine/Pediatrics Will send My Chart message to remind pt to schedule a nurse only BP check. [facility] notified that pt is not currently taking this medication. Quita Álvarez RN documented in this encounter Plan of Treatment Not on filedocumented as of this encounter Visit Diagnoses Not on filedocumented in this encounter Care Teams Production Welder Relationship Specialty Start Date End Date Angeles Olsen MD PCP - General 02/26/02 08/28/10 documented as of this encounter
--- OUTSIDE RECORDS SUMMARY | 2022-04-16 19:39 | XMS_ITS | Encounter Summary ---
:1955 Author Organization [facility] Address [address] [place] [address]. [place] [address] Care Team Providers Name Role Phone Angeles Olsen MD Primary Care Provider [phone] Reason for Visit Reason Comments Pre-Op Exam Encounter Details Date Type Department Care Team Description 06/01/2009 Office Visit [facility] Vanessa Mills Preop General Physical [address] [facility] MD Vanessa Exam (Primary Dx) [place] [address] [place] [phone] [place], [place] [phone] Social History Tobacco Use Types Packs/Day Years Used Date Never Smoker Alcohol Use Standard Drinks/Week Comments Yes 0 (1 standard drink = 0.6 oz pure alcoho l) 1 glass of wine per week 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 Date Recorded 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 Last Filed Vital Signs Vital Sign Reading Time Taken Comments Blood Pressure 132/80 06/01/2009 3:53 PM CDT Pulse 62 06/01/2009 3:53 PM CDT Temperature - - Respiratory Rate - - Oxygen Saturation - - Inhaled Oxygen Concentration - - Weight 84.4 kg (186 lb) 06/01/2009 3:53 PM CDT Height 162.6 cm (5' 4) 06/01/2009 3:53 PM CDT Body Mass Index 31.93 06/01/2009 3:53 PM CDT documented in this encounter Progress Notes Vanessa Mills - 06/01/2009 4:03 PM CDT [place] [address] [place] [address] PRE-OP EVALUATION: Today's date: 06/01/2009 Valeri Keenan (: 1955) presents for pre-operative evaluation assessment as requested by Dr. Bliss. She requires evaluation and anesthesia risk assessment prior to undergoing surgery/procedure for treatment of gallbladder removal . Proposed procedure: gallbladder removal Date of Surgery/ Procedure: 06/06 Time of Surgery/ Procedure: 7:30am Hospital/Surgical Facility: [facility] Fax number for surgical facility: Primary Physician: Dr Mills Type of Anesthesia Anticipated: General History of anesthesia complications: YES: nausea History of abnormal bleeding: YES: Personal HX did once History of blood transfusions: NO Patient has [...] as prolonged bleeding following surgeries or cuts? 12-yes - Have you ever had problems with anemia or been told to take iron pills? 13-NO - Have you had any abnormal blood loss such as black, tarry or bloody stools, or abnormal vaginal bleeding? 14-yes - Have you or any of your relatives ever had problems with anesthesia? 15-NO - Do you snore or stop breathing at night? 16-NO - Do you have any prosthetic heart valves or joints? 17-NO - Is there any chance that you may be ? HPI: Valeri Keenan is a 54 year old female presents for pre-operative evaluation as requested by Dr. Bliss. She requires evaluation and anesthesia clearance prior to undergoing surgery/procedure for treatment of chronic cholecystitis and therefore evaluation of her chronic medical issues including hx of breast cancer, hypothyroidism and hyperlipidemia.. Proposed procedure: laparoscopic cholecystectomy. She has been having RUQ pain for the past 6 months. Pain is now persistent. She has had normal liverenzymes and a normal RUQ US, however a recent HIDA scan showed poor ejection fraction of only 13%. She is having yellow colored loose stools. Also having mild nausea and fatigue. No fevers. Lipids and thyroid issues have been treated with medications and are in good control. She is s/p bilateral mastectomies (left prophylactic) and has recovered well. Patient Active Problem List Diagnoses Date Noted ??? Constipation [564.00A] 02/15/2009 ??? 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 OBESITY NOS [278.00] 04/11/2006 ??? HYPOTHYROIDISM NOS [244.9] 04/10/2006 ??? iamLUMBAGO [724.2] 11/26/2005 ??? PURE HYPERCHOLESTEROLEM [272.0] GOAL IS LDL<130 ??? HEADACHE [784.0] 09/27/2004 ??? OSTEOARTHROS NOS-OTHER SITE [715.98] 09/27/2004 Hands, multiple joints, followed by Rheum ??? FEMALE STRESS INCONTINENCE [625.6] 09/27/2004 ??? MEDICAL HISTORY OF - [3317297] 09/27/2004 DEXA normal ??? MENOPAUSAL DISORDER NEC [627.8] 09/27/2004 On HRT x 9months, then DC Past Medical History Diagnosis Date ??? Headache ??? Unspecified Temporomandibular Joint Disorders ??? Osteoarth NOS-Other Site 2003 Hands, multiple joints, followed by Rheum ??? Female Stress Incontinence ??? MEDICAL HISTORY OF - 2002 DEXA normal ??? Other Specified Menopausal and Postmenopausal Disorder 2002 On HRT x 9months, then DC ??? Personal History of Colonic Polyps 04/2005 adenoma ??? Pure Hypercholesterolemia 2006 GOAL IS LDL<130 ??? 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 Appendectomy ??? Surgical history of - CARPEL TUNNEL ??? Nonspecific procedure RIGHT 2ND TOE SURGERY ??? Vag hyst,rmv tube/ovary 08/2002 Fibroids, on HRT x 10 months, then D/C ??? Colonoscopy 04/2005 adenoma, repeat 5 yrs ??? Mastectomy, simple, complete 03/2007 right ??? Thyroidectomy 07/2007 ??? Mastectomy, bilateral 03/2007 right with carcinoma, left prophylactic Current outpatient prescriptions Medication Sig ??? LEVOTHYROXINE SODIUM 175 MCG OR TABS 1 TABLET DAILY ??? PLAQUENIL 200 MG OR TABS one tablet twice a day ??? WELLBUTRIN XL# 150 MG OR TB24 ONE TABLET DAILY (MARILYN) ??? FLUOXETINE HCL 20 MG OR TABS [...] TABS 1 tablet po qd OTC products: flax seed oil, fish oil -hold Allergies Allergen Reactions ??? Meperidine nausea ??? Morphine Nausea and dizziness ??? Ancef (Cefazolin Sodium) Rash Latex Allergy: NO History Substance Use Topics ??? Tobacco Use: Never ??? Alcohol Use: Yes 1 glass of wine per week History Drug Use No REVIEW OF SYSTEMS: C: NEGATIVE for fever, chills, no recent illness E/M: NEGATIVE for ear, mouth and throat problems R: NEGATIVE for significant cough or SOB CV: NEGATIVE for chest pain, palpitations or peripheral edema GI: RUQ pain, loose light colored stools, mild nausea : No UTI symptoms MS : no issues EXAM: BP 132/80 Pulse 62 Ht 5' 4 (1.626 m) Wt 186 lb (84.369 kg) LMP Hysterectomy GENERAL APPEARANCE: healthy, alert and no distress HENT: ear canals and TM's normal and nose and mouth without ulcers or lesions RESP: lungs clear to auscultation - no rales, rhonchi or wheezes CV: regular rate and rhythm, normal S1 S2, no S3 or S4 and no murmur, click or rub ABDOMEN: soft, RUQ tenderness, bowel sounds normal NEURO: Normal strength and tone, sensory exam grossly normal, mentation intact and speech normal Skin: no jaundice Ext: no edema DIAGNOSTICS: Preop Testing EKG: appears normal, NSR, rate 62, normal axis, normal intervals, no acute ST/T changes c/w ischemia, no LVH by voltage criteria, unchanged from previous tracings read by Vanessa Mills MD Internal Medicine/Pediatrics LABS: see FCIS IMPRESSION: V72.83H Preop General Physical Exam (primary encounter diagnosis) Comment: cholecystitis, abnormal HIDA scan, scheduled for laparoscopic cholecystectomy Plan: ELECTROCARDIOGRAM, COMP W/READ No contraindication to surgery. The proposed surgical procedure is considered LOW risk. For above listed surgery and anesthesia: Patient is at LOW risk for surgery/procedure and perioperative/procedure complications. RECOMMENDATIONS: --Approval given to proceed with proposed procedure, without further diagnostic evaluation. Signed Electronically by: Vanessa Mills MD Internal Medicine/Pediatrics Copy of this evaluation report is provided to requesting physician. Preop Guidelines documented in this encounter Nursing Notes 06/01/2009 3:30 PM CDT >> MABEL PARHAM [facility] Jun 01, 2009 4:03 PM Patient presents with: Pre-Op Exam Initial BP 132/80 Pulse 62 Ht 5' 4 (1.626 m) Wt 186 lb (84.369 kg) LMP Hysterectomy Body mass index is 31.93 kg/(m^2).. BP completed using cuff size: large DEXA Q3 YR due on 04/10/2009 COLONOSCOPY Q5 YR INBASKET MESSAGE due on 04/29/2013 LDL Q 5 YRS due on 11/29/2013 TETANUS Q10 YR due on 08/30/2013 Mabel Parham CMA. documented in this encounter Plan of Treatment Not on filedocumented as of this encounter Procedures Procedure Name Priority Date/Time Associated Comments Diagnosis CL AFF CBC WITH Routine 06/01/2009 4:26 PM Preop General Resul ts for this PLATELETS CDT Physical Exam procedure are in the results section. HCL COMPREHENSIVE Routine 06/01/2009 4:26 PM Preop General Res ults for this METABOLIC PANEL CDT Physical Exam procedure a re in the results section. ZZC ELECTROCARDIOGRAM, Routine 06/01/2009 3:54 PM Preop Genera l Results for this COMP W/READ CDT Physical Exam procedure are in the results section. documented in this encounter Results A.M.A. COMPREHENSIVE MET.PANEL (06/01/2009 4:26 PM CDT) P athologist Signature Sodium 142 133 - 144 [facility] mmol/L [facility] Potassium 4.6 3.4 - 5.3 [facility] mmol/L [facility] Chloride 100 94 - 109 [facility] mmol/L [facility] Carbon Dioxide 32 20 - 32 [facility] mmol/L [facility] Anion Gap 10 6 - 17 [facility] mmol/L [facility] Glucose 88 60 - 99 [facility] mg/dL [facility] Urea Nitrogen 16 7 - 30 [facility] mg/dL [facility] Creatinine 0.83 0.52 - [facility] 1.04 mg/dL [facility]INIC LAB Comment: New IDMS-traceable calibration beginning 12/17/07 GFR Estimate 71 >60 mL/min/1.7m2 [facility] GFR Estimate If Black 86 >60 mL/min/1.7m2 [facility] Calcium 9.9 8.5 - 10.4 mg/dL [facility] Bilirubin Total 0.3 0.2 - 1.3 mg/dL [facility] Albumin 4.6 3.3 - 4.9 g/dL [facility] Comment: Reference range changed on 04/19. Protein Total 7.9 6.8 - 8.8 g/dL [facility] Comment: As of 08, reference range reflects plasma specimen type. Alkaline Phosphatase 68 40 - 150 U/L [facility] ALT 17 0 - 50 U/L [facility] AST 30 0 - 45 U/L [facility] Specimen Anatomical Collection Method Collection Time Receive d Time (Source) Location / / Volume Laterality 06/01/2009 4:26 PM 9 4:31 CDT PM CDT Vanessa Mills MD LABORATORY Performing Organization Address City/Va Hospital/ZIP Code Phon e Number [facility] [address] [place] [address] [phone] [facility] CBC WITH PLATELETS (06/01/2009 4:26 PM CDT) P athologist Signature WBC 6.2 4.0 - 11.0 [facility] 10e9/L [facility] RBC Count 4.34 3.8 - 5.2 [facility] 10e12/L [facility] Hemoglobin 13.0 11.7 - [facility] 15.7 g/dL [facility] Hematocrit 39.0 35.0 - [facility] 47.0 % [facility] MCV 90 78 - 100 [facility] fl [facility]INIC LAB MCH 30.0 26.5 - [facility] 33.0 pg CLINIC LAB MCHC 33.3 31.5 - [facility] 36.5 g/dL [facility]IN[facility] LAB RDW 13.6 10.0 - [facility] 15.0 % [facility]IN[facility] Platelet Count 313 150 - 450 [facility] 10e9/L [facility] Specimen Anatomical Collection Method Collection Time Receive d Time (Source) Location / / Volume Laterality 06/01/2009 4:26 PM 9 4:31 CDT PM CDT Vanessa Mills MD LABORATORY Performing Organization Address [facility]/Va Hospital/[facility] Code Phon e Number [address] [address] [phone] [facility] ELECTROCARDIOGRAM, COMP W/READ (06/01/2009 3:54 PM CDT) Narrative This result has an attachment that is no t available. Vanessa Mills MD EKG TECHNICAL documented in this encounter Visit Diagnoses Diagnosis Preop general physical exam - Primary Other specified pre-operative examinatio n documented in this encounter Care Teams Frame Repairer Relationship Specialty Start Date End Date Angeles Olsen MD PCP - General 02/26/02 08/28/10 documented as of this encounter
--- OUTSIDE RECORDS SUMMARY | 2022-04-16 19:39 | XMS_ITS | Encounter Summary ---
:1955 Author Organization [facility] Address [address] [place] [address] Care Team Providers Name Role Phone Angeles Olsen MD Primary Care Provider [phone] Reason for Visit Reason Onset Date Comments Musculoskeletal Problem 09/07/2009 Injury one week ago Encounter Details Date Type Department Care Team Description 09/07/2009 Telephone [facility] Angeles Olsen loskeletal Problem Alma Maloney MD (Injury one week ago) [address] [place] [address] [address] [facility] [phone] [place], [place] [address] (Wo rk) Social History Tobacco Use Types Packs/Day Years Used Date Never Smoker Alcohol Use Standard Drinks/Week Comments Yes 0 (1 standard drink = 0.6 oz pure alcoho l) 1 glass of wine per week 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 Date Recorded 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 Message handled by Nurse Triage. Quita Álvarez RN GER PROCESS Telephone Encounter - Florinda Álvarez - 09/07/2009 10:27 AM CST Pt has no swelling in lower extremities. No increased pain in lower extremities. Veena's sign is negative. Denies SOB or chest pain. Pt does have bruising behind her left knee with radiation of pain to her ankle. She is on Piroxicam and takes two Baby Aspirin daily. Offered appts today for evaluation and notified pt that it would be better to be seen today than tomorrow. She is at work, and unsure if she can get transportation here today. Advised that E UC is available this evening also. If she develops swelling, redness or increased pain to lower extremity, SOB or chest pain, will needto be seen at [facility] immediately. Injury happened one week ago and she landed on her rt side, but left leg slid out from under her. Left leg and buttocks are the source of pain. Advised pt to attempt to make appt today as diagnostic testing may need to be done. Voices understanding of instructions, she will call her regarding transportation issues, andtry to make it to clinic today. Voices understanding of instructions. No further questions. Quita Álvarez RN Message handled by Nurse Triage. GER PROCESS Telephone Encounter - Rekha Allen - 09/07/2009 9:46 AM CST Please call patient back at work number regarding appointment that is scheduled today with Dr Hayden.She is concerned about having a possible blood clot and if she should be seen early today somewhere else or if it is okay to wait until this afternoon? GER PROCESS documented in this encounter Plan of Treatment Not on filedocumented as of this encounter Visit Diagnoses Not on filedocumented in this encounter Care Teams Executive Administrative Assistant Relationship Specialty Start Date End Date Angeles Olsen MD PCP - General 02/26/02 08/28/10 documented as of this encounter
--- OUTSIDE RECORDS SUMMARY | 2022-04-16 19:39 | XMS_ITS | Encounter Summary ---
:1955 Author Organization [facility] Address [address] [place] [address]. [place] [address] Care Team Providers Name Role Phone Angeles Olsen MD Primary Care Provider [phone] Encounter Details Date Type Department Care Team Description 02/14/[address] 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 I believe I closed the chart in ERROR. Please remove the charge. Getachew Mills MD Internal Medicine/Pediatrics documented in this encounter Plan of Treatment Not on filedocumented as of this encounter Visit Diagnoses Diagnosis Constipation - Primary Unspecified constipation documented in this encounter Care Teams Commercial Solar Sales Consultant Relationship Specialty Start Date End Date Angeles Olsen MD PCP - General 02/26/02 08/28/10 documented as of this encounter
--- OUTSIDE RECORDS SUMMARY | 2022-04-16 19:39 | XMS_ITS | Encounter Summary ---
:1955 Author Organization [facility] Address [address] [place] [address]. [place] [address] Care Team Providers Name Role Phone Angeles Olsen MD Primary Care Provider [phone] Reason for Visit Reason Comments Hypertension Mantoux Results Reading Neg mantoux. Right forearm. Encounter Details Date Type Department Care Team Description 12/01/2008 Allied Health/Nurse [facility] Eag an Hypertension; Mantoux Visit [address] [facility] Results Reading ([place]... 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 Last Filed Vital Signs Vital Sign Reading Time Taken Comments Blood Pressure 108/68 12/01/2008 3:26 PM CDT Pulse 60 12/01/2008 3:26 PM CDT Temperature - - Respiratory Rate - - Oxygen Saturation - - Inhaled Oxygen Concentration - - Weight - - Height - - Body Mass Index - - documented in this encounter Progress Notes Getachew Mills - 12/05/2008 11:52 PM CDT Addended by: GETACHEW MILLS on: 12/05/2008 11:52:21 PM Modules accepted: Orders, Medications Getachew Mills - 12/05/2008 11:49 PM CDT Comment: negative mantoux, normal BP documented in this encounter Nursing Notes 12/01/2008 3:30 PM CDT >> ARNOLDO KNOX [facility] Dec 01, 2008 3:27 PM Patient presents with: Blood Pressure today 108/68 Pulse 60 Mantoux Results Reading - Neg mantoux. Right forearm. Arnoldo Knox CMA documented in this encounter Plan of Treatment Not on filedocumented as of this encounter Visit Diagnoses Diagnosis Screening examination for pulmonary tube rculosis - Primary documented in this encounter Care Teams Batch Unit Treater Relationship Specialty Start Date End Date Angeles Olsen MD PCP - General 02/26/02 08/28/10 documented as of this encounter
--- OUTSIDE RECORDS SUMMARY | 2022-04-16 19:39 | XMS_ITS | Encounter Summary ---
:1955 Author Organization [facility] Address [address] [place] [address]. [place] [address] Care Team Providers Name Role Phone Angeles Olsen MD Primary Care Provider [phone] Reason for Visit [facility] (Routine) - Closed Specialty Diagnoses / Procedures Referred By Contact Refer red To Contact Santana Jones DO [facility] [address] [place], [place] [address] Referral ID Status Reason Start Date Expiration Date Visits Requ ested Visits Authorized HP - LEG Closed 09/11/2009 08/17/2010 20 18 Encounter Details Date Type Department Care Team Description 09/11/2009 Therapy Visit [place] for Cirilo Rey PT Hamstring Muscle Athletic Medicine - VIK[facility] XANDERVIYadi LE Strain (Primary Dx) [facility] [address] [facility] [address] [address] [place], [place] [address] [place], [place] [phone] (Work) [phone] Social History Tobacco Use Types Packs/Day Years Used Date Never Smoker Alcohol Use Standard Drinks/Week Comments Yes 0 (1 standard drink = 0.6 oz pure alcoho l) 1 glass of wine per week 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 Date Recorded 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 Medical allergies: yes (on medical record). Other surgeries include: Cancer surgery and other (breast, Thyroid,gallbladder,hysterectomy). Current medications: Thyroid medication, anti-inflammatory and anti-depressants. 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 Patient is working in normal job without restrictions. Primary job tasks include: Prolonged sitting. Barriers include: None as reported by the patient. Red flags: None as reported by the patient. Objective: System Physical Exam General ROS Assessment/Plan: CTOR OF GLOBAL SALES Cirilo Rey - 09/11/2009 8:06 AM CST Images from the original note were not included. Subjective: Valeri Keenan is a 54 year old female with a left knee condition. Condition occurred with: A fall/slip. Condition occurred: at home. This is a new condition Slipped on ice patch two weeks ago 08-30-09.. Patient reports pain: Posterior. Radiates to: Thigh and gluteals (Left side ). Pain is described as aching and is intermittent and reported as 5/10. Associated symptoms: Loss of motion/stiffness. Symptoms are exacerbated by walking, ascending stairs and bending/squatting and relieved by rest. Since onset symptoms are gradually improving. Objective: Gait: Gait Type: Antalgic Assistive Devices: None Deviations: Knee: Knee extension decr LGeneral Deviations: Saima decr and stride length decr Knee Evaluation: ROM: PROM: normal AROM Hyperextension: Left: 2 Right: 2 Extension: Left: 0 Right: 0 Flexion: Left: 140 Right: 140 Endfeel: strain at end of left knee extension and hip flexion, IR, ER Strength: Extension: Left: 5/5 Pain:- Right: 5/5 Pain:- Flexion: Left: 3+/5 Pain:+ Right: 5/5 Pain:- Special Tests: : Sx reproduction with left piriformis and hamstring musle tesion positions. Palpation: Left knee tenderness present at: Biceps Femoral (left isch tub origin and mid substance HS) and Gluteus Medius Edema: : ecchymosis left posterior knee. Musculoskeletal: Legs: ROS Assessment/Plan: Patient is a 54 year old female with gluteal and thigh complaints. Patient has the following significant findings with corresponding treatment plan. Diagnosis 1: Hamstring strain left Pain - hot/cold therapy, electric stimulation, self management and education Decreased ROM/flexibility - manual therapy and therapeutic exercise Decreased joint mobility - manual therapy and therapeutic exercise Decreased strength - therapeutic exercise and therapeutic activities Inflammation - cold therapy and electric stimulation Impaired gait - gait training Impaired muscle performance - neuro re-education Decreased function - therapeutic activities Previous and current functional limitations: (See Goal Flow Sheet for this information) Short term and retirement goals: (See Goal Flow Sheet for this information) Communication ability: Patient appears to be able to clearly communicate and understand verbal and written communication and follow directions correctly. Treatment Explanation - The following has been discussed with the patient: RX ordered/plan of care Anticipated outcomes Possible risks and side effects This patient would benefit from PT intervention to resume normal activities. Rehab potential is excellent. Frequency: 1-2 X week Duration: for 3-4 weeks Discharge Plan: Achieve all LTG. Independent in home treatment program. Reach maximal therapeutic benefit. Medicare/Medicaid Certification period: NA This patient does not have Medicare/Medicaid. Please refer to the daily flowsheet for treatment today and total treatment time. CTOR OF GLOBAL SALES documented in this encounter Plan of Treatment Not on filedocumented as of this encounter Procedures Procedure Name Priority Date/Time Associated Diagnosis Comme nts ZC THERAPEUTIC Routine 09/11/2009 8:46 AM Hamstring Muscle EXERCISES DIRECTOR OF GLOBAL SALES Strain ZC ELECTRIC STIMULATION Routine 09/11/2009 8:46 AM Hamstring Muscle THERAPY DIRECTOR OF GLOBAL SALES Strain [facility] HOT OR COLD PACKS Routine 09/11/2009 8:46 AM Hamstring Mus maria t THERAPY DIRECTOR OF GLOBAL SALES Strain documented in this encounter Visit Diagnoses Diagnosis Hamstring muscle strain - Primary Sprain and strain of unspecified site of knee and leg documented in this encounter Care Teams Glass Technologist Relationship Specialty Start Date End Date Angeles Olsen MD PCP - General 02/26/02 08/28/10 documented as of this encounter
--- OUTSIDE RECORDS SUMMARY | 2022-04-16 19:39 | XMS_ITS | Encounter Summary ---
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 documented in this encounter Results Hospital - SURGICAL PATHOLOGY (06/06/2009 12:00 AM CDT) Component Value Ref Test Analysis Performed At [facility] Range Method Time Signature Copath Report Patient Name: VALERI ROJAS MR#: [id number] Specimen #: [id number] Collected: 06/06/2009 Received: 06/06/2009 Reported: 06/07/2009 13:53 Ordering Phy(s): CHRISTIN BLISS SPECIMEN(S): Gallbladder FINAL DIAGNOSIS: Gallbladder, resection - 1. ?No gallstones identified. 2. ?Chronic cholecystitis. 3. ?No evidence of malignancy. Electronically signed out by: Americo Spears M.D. CLINICAL HISTORY: Chronic cholecystitis. GROSS: The specimen, labeled gallbladder, consists of a 7 cm in l ength x 3 cm in diameter gallbladder. ??The outer surface is partially co nichole by unremarkable serosa. ??Two metallic clips are identified on the surface. On section, the lumen is partially filled with yellow-green mucoid bile. No gallstones are identified within the lumen of the gallbl adder, the cystic duct or the jar containing the specimen. ??The wall i s 0.1 cm in thickness. ??The thickness is uniform. ??The mucosa is pink to yellow in color. ??No tumors are identified. ??Weather Forecaster sections are submitted in one cassette. ??MGP/sg MICROSCOPIC: Microscopic examination was performed. MGP/sg 06-07-09 TESTING LAB LOCATION: [address] ??[id number] COLLECTION SITE: Client: [facility] Location: SDS (R) Specimen (Source) Anatomical Collection Method Collection Time Re ceived Time Location / / Volume Laterality 06/06/2009 06/06/2009 8:42 AM CDT Christin Bliss MD LABORATORY Performing Organization Address City/State/ZIP Code Phon e Number COPATH documented in this encounter Visit Diagnoses Not on filedocumented in this encounter Care Teams Tractor Operator Helper Relationship Specialty Start Date End Date Angeles Olsen MD PCP - General 02/26/02 08/28/10 documented as of this encounter
--- OUTSIDE RECORDS SUMMARY | 2022-04-16 19:39 | XMS_ITS | Encounter Summary ---
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 NELL Ortega (RN)[Signed 19:00] Authored: Progress Note documented in this encounter Plan of Treatment Not on filedocumented as of this encounter Visit Diagnoses Not on filedocumented in this encounter Care Teams Coremaker Helper Relationship Specialty Start Date End Date Angeles Olsen MD PCP - General 02/26/02 08/28/10 System, Provider Not In PCP - General 08/29/10 06/30/13 documented as of this encounter
--- OUTSIDE RECORDS SUMMARY | 2022-04-16 19:39 | XMS_ITS | Encounter Summary ---
:1955 Author Organization [facility] Address [address] [place] [address]. [place] [address] Care Team Providers Name Role Phone Angeles Olsen MD Primary Care Provider [phone] Reason for Visit Reason Comments Physical Encounter Details Date Type Department Care Team Description 11/29/2008 Office Visit [facility] Vanessa Mills G eneral Medical Examination at a Health Care Facility (Primary Dx); Alma Mendez MD PURE HYPERCHOLESTEROLEM; [address] [facility] Unspecified Essential Hypert ension; FABIO Marquez [id number] A Serum Calcium Elevated; [phone] [place], [place] Other Specif ied Counseling; [address] Depressive Disorder, not Elsewhere Class ified; [phone] Screening for T uberculosis (Work) Social History Tobacco Use Types Packs/Day Years Used Date Never Smoker Alcohol Use Standard Drinks/Week Comments Yes 0 (1 standard drink = 0.6 oz pure alcoho l) 1 glass of wine per week 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 Date Recorded 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 No Menses are every n/a days; lasting for n/a days. Flow is N/a. Menstrual Pain? N/a PMS symptoms? N/a Have you had a pneumonia shot? Not applicable How many dairy products do you eat daily? 2-3 Have you had an eye exam in the past year? YES Health Maintenance Reviewed: Health Maintenance Topic Date Due ??? Mammo q1 yr [employer] message 02/28/2008 ??? Colonoscopy q5 yr [employer] message 04/29/2013 ??? Dexa q3 yr 04/10/2009 ??? Ldl q 5 yrs 05/31/2013 ??? Tetanus q10 yr 08/30/2013 SAFETY: ======= Do you exercise? YES If yes, how many times per week? 3 Do you feel safe in your relationship(s)? YES Do you have a gun in your home? No Do you wear your seatbelt regularly? YES Do you use sunscreen? YES Are you fasting today? Yes Valeri Keenan is here for a general check up. She is fasting. 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 Headache ??? Unspecified Temporomandibular Joint Disorders ??? 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 Female Stress Incontinence ??? MEDICAL HISTORY OF - 2002 DEXA normal ??? Other Specified Menopausal and Postmenopausal Disorder 2002 On HRT x 9months, then DC ??? Personal History of Colonic Polyps 04/2005 adenoma ??? Pure Hypercholesterolemia 2006 GOAL IS LDL<130 ??? 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 ROS CONSTITUTIONAL:NEGATIVE for fever, chills, change in [...] changes in mood or affect EXAM BP 102/64 Pulse 60 Ht 5' 5 (1.651 m) Wt 188 lb (85.276 kg) LMP Hysterectomy BMI = Body mass index is 31.28 kg/(m^2). GENERAL APPEARANCE: Alert, pleasant, NAD EYES: PERRL, EOMI, conjunctiva clear HENT: TM normal bilaterally. Nose and mouth without lesions NECK: no adenopathy, thyroid normal to palpation RESP: lungs clear to auscultation bilaterally BREAST: tram flap reconstruction bilaterally CV: regular rate and rhythm, normal S1 S2, no murmur, no carotid bruits ABDOMEN: soft, nontender, without HSM or masses. Bowel sounds normal : Not done RECTAL EXAM: Not done MS: extremities normal- no gross deformities noted, no tender, hot or swollen joints. SKIN: no suspicious lesions or rashes NEURO: Normal strength and tone, sensory exam grossly normal, DTR normoreflexive in upper and lower extremities PSYCH: mentation appears normal. and affect normal/bright. EXT: no peripheral edema, pedal pulses palpable Assessment: V70.0 Routine General Medical Examination at a Health Care Facility (primary encounter diagnosis) Comment: Anticipatory guidance given today regarding diet, exercise and calcium intake, safety. SBE taught. Plan: A.M.A. LIPID PANEL, CBC WITH PLATELETS Recommend weight loss, regular exercise program 272.0 PURE HYPERCHOLESTEROLEM Comment: LDL goal <130 Plan: fasting lipid profile today 401.9 Unspecified Essential Hypertension Comment: excellent BP Plan: trial of d/c HCTZ, recheck BP twice at nurse visit this month, if bp remains in target range, then ok to stop HCTZ 275.42Q Serum Calcium Elevated Comment: 10.6 at last check, normal Vitamin D level Plan: A.M.A. COMPREHENSIVE MET.PANEL, PARATHORMONE (INTACT) Recheck today 311 Depressive Disorder, not Elsewhere Classified Comment: doing well with phq9=5 today, she wishes to continue meds Plan: WELLBUTRIN XL# 150 MG OR TB24, FLUOXETINE HCL 20 MG OR TABS No change in meds V74.1K Screening for Tuberculosis Comment: recent travel, exposure to TB Plan: TB INTRADERMAL TEST Place mantoux with return in 2 days to check injection site documented in this encounter Nursing Notes 11/29/2008 7:45 AM CDT >> GARDENIA COOPER Wed Aug 09, 2009 4:36 PM Chart addended to update problem list. Quita Cooper RN >> SRINIVAS Goldman Nov 29, 2008 7:54 AM Valeri Hortonroycealireza presents for physical. Initial BP 102/64 Pulse 60 Ht 5' 5 (1.651 m) Wt 188 lb (85.276 kg) LMP Hysterectomy Body mass index is 31.28 kg/(m^2).. BP completed using cuff size: regular Srinivas Cheek LPN documented in this encounter Plan of Treatment Pending Results Name Type Priority Associated Diagnoses Date/Ti me TB INTRADERMAL TEST Immunization/In Routine Screening for 11/16 3:24 PM jection Tuberculosis CDT documented as of this encounter Procedures Procedure Name Priority Date/Time Associated Diagnosis Comme nts HC TB INTRADERMAL TEST Routine 12/01/2008 3:24 Screening for PM CDT Tuberculosis CL AFF CBC WITH Routine 11/29/2008 8:50 Routine General Result s for this PLATELETS AM CDT Medical Examination procedur e are in at a [facility] Care the results Facility section. HCL COMPREHENSIVE Routine 11/29/2008 8:50 Serum Calcium Result s for this METABOLIC PANEL AM CDT Elevated procedure ar e in the results section. CL AFF PARATHORMONE Routine 11/29/2008 8:50 Serum Calcium Resu lts for this (INTACT) AM CDT Elevated procedure are i n the results section. CL AFF A.M.A. LIPID Routine 11/29/2008 8:50 Routine General Re sults for this PANEL AM CDT Medical Examination procedur e are in at a Health Care the results Facility section. documented in this encounter Results PARATHORMONE (INTACT) (11/29/2008 8:50 AM CDT) athologist Signature Parathyroid 35 12 - 72 [facility] Hormone Intact pg/mL [facility] LABS Specimen Anatomical Collection Method Collection Time Receive d Time (Source) Location / / Volume Laterality 11/29/2008 8:50 AM 9 8:55 CDT AM CDT Vanessa Mills MD LABORATORY Performing Organization Address City/State/ZIP Code Phon e Number [id number] [place] [address] LABS CBC WITH PLATELETS (11/29/2008 8:50 AM CDT) athologist Signature WBC 5.6 4.0 - 11.0 [place] 10e9/L CLINIC LAB RBC Count 4.92 3.8 - 5.2 [place] 10e12/L [facility] LAB Hemoglobin 14.5 11.7 - [place] 15.7 g/dL CLINIC LAB Hematocrit 42.8 35.0 - [place] 47.0 % CLINIC LAB MCV 87 78 - 100 [place] fl [facility]IN[facility] LAB MCH 29.5 26.5 [facility] 33.0 pg [facility] LAB MCHC 33.9 31.5 - [place] 36.5 g/dL CLINIC LAB RDW 14.2 10.0 - [place] 15.0 % CLINIC LAB Platelet Count 311 150 - 450 [place] 10e9/L [facility] LAB Specimen Anatomical Collection Method Collection Time Receive d Time (Source) Location / / Volume Laterality 11/29/2008 8:50 AM 9 8:55 CDT AM CDT Vanessa Mills MD LABORATORY Performing Organization Address [facility] Phon e Number [facility] [place] [address] [place] [address] [phone] [facility] (ABNORMAL) A.M.A. LIPID PANEL (11/29/2008 8:50 AM CDT) P athologist Signature Cholesterol 244 (H) 0 - 200 [facility] mg/dL CLINIC LAB Comment: LDL Cholesterol is the primary guide to therapy: LDL-cholesterol goal in high risk patients is <100 mg/dL and in very high risk patients is <70 mg/dL. The NCEP recommends further evaluation of: patients with cholesterol <200 mg/dL if additional risk factors are present, cholesterol >240 mg/dL, triglycerides >150 mg/dL, or HDL <40 mg/dL. Triglycerides 248 (H) 0 - 150 mg/dL [facility] LAB HDL Cholesterol 57 50 - 110 mg/dL [facility] LDL Cholesterol Calculated 137 (H) 0 - 129 mg/dL [facility] Comment: LDL Cholesterol is the primary guide to therapy: LDL-cholesterol goal in high risk patients is <100 mg/dL and in very high risk patients is <70 mg/dL. VLDL-Cholesterol 50 (H) 0 - 30 mg/dL [facility] LAB Cholesterol/HDL Ratio 4.3 0.0 - 5.0 [facility] Specimen Anatomical Collection Method Collection Time Receive d Time (Source) Location / / Volume Laterality 11/29/2008 8:50 AM 9 8:55 CDT AM CDT Vanessa Mills MD LABORATORY Performing Organization Address [facility] Code Phon e Number [facility] [address] [place] [address] [phone] [facility] (ABNORMAL) A.M.A. COMPREHENSIVE MET.PANEL (11/29/2008 8:50 AM CDT) P athologist Signature Sodium 141 133 - 144 [place] mmol/L [facility] Potassium 4.3 3.4 - 5.3 [place] mmol/L [facility] Chloride 101 94 - 109 [facility] mmol/L [facility] Carbon Dioxide 30 20 - 32 [place] mmol/L [facility] Anion Gap 10 6 - 17 [place] mmol/L [facility] Glucose 100 (H) 60 - 99 [place] mg/dL [facility] Urea Nitrogen 18 7 - 30 [place] mg/dL [facility] Creatinine 0.76 0.52 - [place] 1.04 mg/dL [facility] Comment: New IDMS-traceable calibration beginning 12/17/07 GFR Estimate 79 >60 mL/min/1.7m2 [place] [facility] LAB GFR Estimate If Black >90 >60 mL/min/1.7m2 [facility] Calcium 9.4 8.5 - 10.4 mg/dL [facility] Bilirubin Total 0.3 0.2 - 1.3 mg/dL [facility] Albumin 4.4 3.9 - 5.1 g/dL [facility] Comment: Reference range changed on 04/19. Protein Total 7.7 6.8 - 8.8 g/dL [place] [facility] Comment: As of 08, reference range reflects plasma specimen type. Alkaline Phosphatase 83 40 - 150 U/L [facility] ALT 23 0 - 50 U/L [facility] CLIN IC LAB AST 27 0 - 45 U/L [facility] CLIN IC LAB Specimen Anatomical Collection Method Collection Time Receive d Time (Source) Location / / Volume Laterality 11/29/2008 8:50 AM 9 8:55 CDT AM CDT Vanessa Mills MD LABORATORY Performing Organization Address City/State/ZIP Code Phon e Number [facility] [address] [place] [address] [facility] documented in this encounter Visit Diagnoses Diagnosis Routine general medical examination at a health care facility - Primary PURE HYPERCHOLESTEROLEM Pure hypercholesterolemia Unspecified essential hypertension Serum calcium elevated Hypercalcemia Other specified counseling Depressive disorder, not elsewhere class ified Screening for tuberculosis Screening examination for pulmonary tube rculosis documented in this encounter Care Teams Net Lead Architect Relationship Specialty Start Date End Date Angeles Olsen MD PCP - General 02/26/02 08/28/10 documented as of this encounter
--- OUTSIDE RECORDS SUMMARY | 2022-04-16 19:39 | XMS_ITS | Encounter Summary ---
:1955 Author Organization [facility] Address [address] [place] [address]. [place] [address] Care Team Providers Name Role Phone Angeles Olsen MD Primary Care Provider [phone] Reason for Visit Reason Comments Pain abd pain RUQ radiate to back , diarrhea to constipation, fatigue Encounter Details Date Type Department Care Team Description 05/11/2009 Office Visit [facility] Vanessa Byrne RUQ Pain (Primary Dx); [address] [place] [address] [place] [address] [place] [address] Social History Tobacco Use Types Packs/Day Years Used Date Never Smoker Alcohol Use Standard Drinks/Week Comments Yes 0 (1 standard drink = 0.6 oz pure alcoho l) 1 glass of wine per week 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 Date Recorded 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 Last Filed Vital Signs Vital Sign Reading Time Taken Comments Blood Pressure 120/82 05/11/2009 2:32 PM CDT Pulse 64 05/11/2009 2:32 PM CDT Temperature 36.8 ??C (98.3 ??F) 05/11/2009 2:32 PM CDT Respiratory Rate - - Oxygen Saturation - - Inhaled Oxygen Concentration - - Weight 85.3 kg (188 lb) 05/11/2009 2:32 PM CDT Height - - Body Mass Index 31.28 11/29/2008 7:50 AM CDT documented in this encounter Patient Instructions Patient InstructionsAnnikaVanessa jensen Vanessa - 05/11/2009 3:01 PM CDT [facility] radiology scheduling [phone] documented in this encounter Progress Notes Tae Millsjyoti Mendez - 05/11/2009 3:01 PM CDT Valeri Keenan is a 54 year old female here for the following issues: RUQ PAIN Intermiitent RUQ pain since January. Fairly constant throughout the day. She recently associated the pain with eating heavier, fatty foods. Noticeable more in the afternoon. It feels better to lay flat on her back when she is having a flare. . Does not think it is a muscle strain, denies any previous injury to her back. 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 No hx of jaundice. She is concerned this is her gallbladder. ARTHRITIS Pt was seen by a supervisor quilting who felt she had mixed arthritis of OA and RA. Started her on plaquenil and she is doing much better. Arthralgias were mainly in her hands and feet. EXAM BP 120/82 Pulse 64 Temp (Src) 98.3 ??F (36.8 ??C) (Oral) Wt 188 lb (85.276 kg) LMP Hysterectomy Gen: Alert, pleasant, NAD COR: S1,S2, no murmur Lungs: CTA bilaterally Abdomen: Soft, diffuse tenderness at RUQ and epigastrium, normal bowel sounds, no HSM or masses Skin: no jaundice. MS: hypertrophic thickening of MCPs and DIP joints of hands, nothing red or swollen. Feet not examined ASSESSMENT: 789.01F RUQ Pain (primary encounter diagnosis) Comment: symptoms sound consistent with cholecystitis. Plan: A.M.A. COMPREHENSIVE MET.PANEL, CBC WITH PLATELETS, DIFF, SONO ABDOMEN COMPLETE, SONO ABDOMEN COMPLETE, HEPATOBILIARY IMAGING (HIDA SCAN) Await lab results Addendum: labs normal, RUQ US normal, will send pt for HIDA and surgical consultation 716.90Q Arthritis Comment: hands and feet Plan: PLAQUENIL 200 MG OR TABS Doing well, no further intervention. documented in this encounter Nursing Notes 05/11/2009 2:30 PM CDT >> SRINIVAS PERERA Diamond May 11, 2009 2:37 PM Patient presents with: Pain - abd pain RUQ radiate to back, diarrhea to constipation, fatigue Initial BP 120/82 Pulse 64 Temp (Src) 98.3 ??F (36.8 ??C) (Oral) Wt 188 lb (85.276 kg) LMP Hysterectomy Estimated Body mass index is 31.28 kg/(m^2) as calculated from: Height of 5' 5 (1.651 m) as of 11/29/08 Weight of 188 lb (85.276 kg) as of this encounter. BP completed using cuff size: regular Srinivas Perera LPN documented in this encounter Plan of Treatment Not on filedocumented as of this encounter Procedures Procedure Name Priority Date/Time Associated Comments Diagnosis HC HEPATOBILIARY SCAN Routine 05/22/2009 9:19 AM RUQ pain Results for this W GALLBLADDER CDT procedure are in the results section. HC US ABDOMEN COMPLETE Routine 05/17/2009 8:10 AM RUQ pain Results for this CDT procedure are i n the results section. CL AFF CBC WITH Routine 05/11/2009 3:11 PM RUQ Pain Result s for this PLATELETS, DIFF CDT procedure ar e in the results section. HCL COMPREHENSIVE Routine 05/11/2009 3:11 PM RUQ Pain Resu lts for this METABOLIC PANEL CDT procedure ar e in the results section. documented in this encounter Results HEPATOBILIARY IMAGING (HIDA SCAN) (05/22/2009 9:19 AM CDT) Anatomical Region Laterality Modality Other Specimen (Source) Anatomical Collection Method Collection Time Re ceived Time Location / / Volume Laterality 05/22/2009 9:19 AM CDT Impressions 05/22/2009 11:34 AM CDT NUCLEAR MEDICINE HEPATOBILIARY WITH GALL BLADDER EJECTION FRACTION May 22, 2009 9:19 AM HISTORY: Right upper quadrant pain. TECHNIQUE: 8.9 mCi of technetium 99m Cho letec IV. 1.3 mcg of cholecystokinin. COMPARISON: Nuclear study: None. Other relevant studies: Ultrasound dated 05/17/2009. FINDINGS: Homogeneous perfusion of the l iver. Prompt radiotracer uptake within the gallbladder lumen. Pro gressive tracer movement into loops of small bowel. Gallbladder ejection fraction is 13% (no rmal is greater than 35%). After injection of cholecystokinin, the patient reports pain, nausea, and burping. IMPRESSION: 1. No evidence for acute cholecystitis a s radiotracer is taken up within the gallbladder lumen. 2. Low gallbladder ejection fraction at 13%. This suggests gallbladder dyskinesis or partial obstruction from a n uncertain etiology. 3. Symptoms of abdominal pain, nausea, a nd burping after injection of cholecystokinin. Vanessa Mills MD SPECIAL IMAGING STUDIES SONO ABDOMEN COMPLETE (05/17/2009 8:10 AM CDT) Anatomical Region Laterality Modality Other Specimen (Source) Anatomical Collection Method Collection Time Re ceived Time Location / / Volume Laterality 05/17/2009 8:10 AM CDT Impressions 05/17/2009 8:24 AM CDT ABDOMINAL ULTRASOUND ??May 17, 2009 8:10 :00 AM HISTORY: ?? Right upper quadrant pain COMPARISON: None. FINDINGS: ?? Gallbladder: Normal with no cholelithias is, wall thickening or focal tenderness. ?? Bile ducts: ??CHD is normal diameter. ?? No intrahepatic biliary dilatation. Liver: Normal. Pancreas: ??Normal. Spleen: ??Normal. Right kidney: ??Normal. Left kidney: ??Normal. Aorta and IVC: ??Normal. ?? IMPRESSION: ?? Normal ultrasound of the abdomen. Vanessa Mills MD SPECIAL IMAGING STUDIES (ABNORMAL) CBC WITH PLATELETS, DIFF (05/11/2009 3:11 PM CDT) [facility] Method Time Signature WBC 6.1 4.0 - [facility] 11.0 [facility] 10e9/L LAB RBC Count 4.35 3.8 - 5.2 [facility] 10e12/L [facility] LAB Hemoglobin 13.0 11.7 - [facility] 15.7 g/dL [facility] LAB Hematocrit 38.9 35.0 - [facility] 47.0 % [facility] MCV 89 78 - 100 [facility] fl [facility] MCH 29.9 26.5 - [facility] 33.0 pg [facility] LAB MCHC 33.4 31.5 - [facility] 36.5 g/dL [facility] LAB RDW 14.1 10.0 - [place] 15.0 % [facility] Platelet Count 325 150 - 450 [place] 10e9/L [facility] Diff Method Automated [place] Method [facility] % Neutrophils 71 40 - 75 % [facility] % Lymphocytes 15 (L) 20 - 48 % [facility] % Monocytes 11 0 - 12 % [facility] % Eosinophils 2 0 - 6 % [facility] % Basophils 1 0 - 2 % [facility] Absolute 4.4 1.6 - 8.3 [place] Neutrophil 10e9/L [facility] Absolute 0.9 0.8 - 5.3 [place] Lymphocytes 10e9/L [facility] Absolute 0.7 0.0 - 1.3 [place] Monocytes 10e9/L [facility] Absolute 0.1 0.0 - 0.7 [place] Eosinophils 10e9/L [facility] Absolute 0.0 0.0 - 0.2 [place] Basophils 10e9/L [facility] LAB Specimen Anatomical Collection Method Collection Time Receive d Time (Source) Location / / Volume Laterality 05/11/2009 3:11 PM 9 3:14 CDT PM CDT Vanessa Mills MD LABORATORY Performing Organization Address City/State/ZIP Code Phon e Number [facility] [address] [place] [address] [facility] A.M.A. COMPREHENSIVE MET.PANEL (05/11/2009 3:11 PM CDT) P athologist Signature Sodium 142 133 - 144 [facility]/L [facility] Potassium 4.5 3.4 - 5.3 [facility]L [facility] Chloride 104 94 - 109 [place] [facility] mmol/L [facility] Carbon Dioxide 29 20 - 32 [facility]L [facility] Anion Gap 9 6 - 17 [place] mmol/L [facility] Glucose 89 60 - 99 [place] mg/dL [facility] LAB Urea Nitrogen 25 7 - 30 [facility] mg/dL CLINIC LAB Creatinine 0.84 0.52 - [facility] 1.04 mg/dL [facility] LAB Comment: New IDMS-traceable calibration beginning 12/17/07 GFR Estimate 70 >60 mL/min/1.7m2 [place] E [facility] GFR Estimate If Black 85 >60 mL/min/1.7m2 [facility] Calcium 9.8 8.5 - 10.4 mg/dL [place] [facility] N [facility] Bilirubin Total 0.3 0.2 - 1.3 mg/dL [facility] Albumin 4.3 3.3 - 4.9 g/dL [place] [facility] Comment: Reference range changed on 04/19. Protein Total 7.3 6.8 - 8.8 g/dL [place] [facility] Comment: As of 08, reference range reflects plasma specimen type. Alkaline Phosphatase 65 40 - 150 U/L [facility] LAB ALT 21 0 - 50 U/L [facility] CLIN IC LAB AST 34 0 - 45 U/L [facility] CLIN IC LAB Specimen Anatomical Collection Method Collection Time Receive d Time (Source) Location / / Volume Laterality 05/11/2009 3:11 PM 9 3:14 CDT PM CDT Vanessa Mills MD LABORATORY Performing Organization Address City/State/ZIP Code Phon e Number [facility] [address] [place] [address] [id number] [facility] documented in this encounter Visit Diagnoses Diagnosis RUQ pain - Primary Abdominal pain, right upper quadrant Arthritis Arthropathy, unspecified, site unspecifi ed documented in this encounter Care Teams Division Officer Weapons Department Relationship Specialty Start Date End Date Angeles Olsen MD PCP - General 02/26/02 08/28/10 documented as of this encounter
--- OUTSIDE RECORDS SUMMARY | 2022-04-16 19:39 | XMS_ITS | Encounter Summary ---
:1955 Author Organization [facility] Address [address] [place] [address]. [place] [address] Care Team Providers Name Role Phone Angeles Olsen MD Primary Care Provider [phone] Reason for Visit Reason Onset Date Comments Refill Request 11/09/2008 HCTZ Encounter Details Date Type Department Care Team Description 11/09/2008 Refill [facility] Eag Vanessa Byrne Refill Request (HCTZ) [address] [facility] [place] [address] [place] [address] [place] [address] (Wo rk) Social History Tobacco Use Types Packs/Day Years Used Date Never Smoker Alcohol Use Standard Drinks/Week Comments Yes 0 (1 standard drink = 0.6 oz pure alcoho l) 1 glass of wine per week 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 Appt is scheduled for 11/29/08. Med last ordered-05/13/08. Last related office visit-05/31/08. BP-124/72. Last CMP-05/31/08.. D. Álvarez RN documented in this encounter Plan of Treatment Not on filedocumented as of this encounter Visit Diagnoses Diagnosis Unspecified essential hypertension - Emily luu documented in this encounter Care Teams Electron Beam Welder Relationship Specialty Start Date End Date Angeles Olsen MD PCP - General 02/26/02 08/28/10 documented as of this encounter
--- OUTSIDE RECORDS SUMMARY | 2022-04-16 19:39 | XMS_ITS | Encounter Summary ---
:1955 Author Organization [facility] Address [address] [place] [address]. [place] [address] Care Team Providers Name Role Phone Angeles Olsen MD Primary Care Provider [phone] Encounter Details Date Type Department Care Team Description 04/07/2009 E-Visit [facility] Eag Vanessa Byrne Back Pain (Primary Dx) [address] [facility] [place] [address] [facility] A [phone] [place] [address] (Wo rk) Social History Tobacco Use Types Packs/Day Years Used Date Never Smoker Alcohol Use Standard Drinks/Week Comments Yes 0 (1 standard drink = 0.6 oz pure alcoho l) 1 glass of wine per week 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
--- OUTSIDE RECORDS SUMMARY | 2022-04-16 19:39 | XMS_ITS | Encounter Summary ---
:1955 Author Organization [facility] Address [address] [place] [address]. 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 POSTOPERATIVE DIAGNOSIS: Biliary dyskinesia. PROCEDURE: Laparoscopic cholecystectomy. SURGEON: Christin Bliss MD BOMBSIGHT SPECIALIST: Livier Aponte PA-C ANESTHESIA: General endotracheal anesthesia. ESTIMATED BLOOD LOSS: 10 mL. ANTIBIOTIC: Levaquin. DESCRIPTION OF PROCEDURE: After obtaining informed consent, Valeri Rojas was taken to the operating room, placed on the table in a supine position. General endotracheal anesthesia was induced. The abdomen was prepped and draped in standard sterile fashion. A longitudinal midline incision just above the umbilicus was made with approximate length of 2.5 cm. The incision was carried down to the skinand subcutaneous tissue until the fascia was identified and grasped at the base of the umbilicus with a Ronan clamp. The fascia was incised in the midline with a 15 blade and the peritoneum was entered bluntly with a Carmalt clamp. Two interrupted 0 Vicryl sutures were placed in the fascial incision,1 in the cephalad and 1 in the caudad aspect of the incision. The Gladys trocar was introduced and the abdomen was insufflated with CO2. An 11 mm trocar was placed in the subxiphoid position and two 5-mm trocars were placed in the right upper quadrant, 1 at the midclavicular line, 1 at the anterior axi llary line, each at the level of the umbilicus. The gallbladder was grasped and retracted cephalad. The infundibulum was grasped and retracted laterally. The peritoneum over the medial aspect of the triangle of Calot was taken down with the [place] dissector and modest amounts of Bovie electrocautery. The peritoneum over the lateral triangle of Calot was taken down likewise. The cystic duct and artery were freed up from surrounding tissues. This dissection was carried forward as there was no apparent inflammation of the peritoneum. The gallbladder itself looked normal. Two clips were placed proximally and 2 distally on the cystic duct. Two clips were placed proximally and 1 distally on the cysticartery. Each of these was transected with the EndoShears. The gallbladder was removed from the liverbed using the hook electrocautery. The gallbladder was passed into an Endocatch bag and removed through the umbilical trocar site. Hemostasis was obtained in the liver bed with the hook electrocautery.There was no bleeding identified at the end of the case. We irrigated the abdomen with copious amounts of sterile saline and aspirated the effluent. The 2 right upper quadrant trocars were anesthetizedwith local anesthetic and the trocars were removed under direct visualization. The subxiphoid trocarwas removed. There was no bleeding from any of these trocar sites. The Gladys trocar was removed andthe abdomen was evacuated of CO2. Two additional interrupted 0 Vicryl sutures were placed in the supraumbilical trocar site. Each of the 4 interrupted 0 Vicryl sutures were cinched down and tied. All of the skin incisions were anesthetized with local anesthetic. Each of the skin incisions was closed with interrupted 4-0 Monocryl subcuticular sutures and Steri-Strips. The patient tolerated the procedure well. There were no apparent complications. All sponge, needle and instrument counts at the end ofthe case were correct. Electronically signed on 06/14/2009 08:44 by CHRISTIN BLISS MD MT: [id number] Name: VALERI ROJAS Account: [id number] : 1955 Procedure Date: 06/06/2009 Document: [id number] documented in this encounter Plan of Treatment Not on filedocumented as of this encounter Visit Diagnoses Not on filedocumented in this encounter Care Teams Web Operations Specialist Relationship Specialty Start Date End Date Angeles Olsen MD PCP - General 02/26/02 08/28/10 documented as of this encounter
--- OUTSIDE RECORDS SUMMARY | 2022-04-16 19:39 | XMS_ITS | Encounter Summary ---
:1955 Author Organization [facility] Address [address] [place] [address]. [place] [address] Care Team Providers Name Role Phone Angeles Olsen MD Primary Care Provider [phone] Reason for Referral Referral not Required - Closed Specialty Diagnoses / Procedures Referred By Contact Refer red To Contact Diagnoses Hamstring injury Carol Muhammad Im/Peds [facility] [address] [facility] ORTHOPEDIC CARE [place] [address] [facility] [address] [address] Phone: [phone] Fax: [phone] Referral ID Status Reason Start Date Expiration Date Visits Requ ested Visits Authorized [id number] Closed 09/07/2009 08/17/2011 1 1 ME AUDITOR Reason for Visit Reason Comments Musculoskeletal Problem Fell a week ago and is now h aving left leg pain. Bruise that is red on her leg. 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 Patient first noted left leg. Pain onset is about 7 days prior to presentation. Pain is not changed since onset. Pain characterized as: throbbing. Pain exacerbated by: use. Pain relieved by: rest. Allergies: Allergies Allergen Reactions ??? Meperidine nausea ??? Morphine Nausea and dizziness ??? Ancef (Cefazolin Sodium) Rash Current outpatient prescriptions Medication Sig ??? LEVOTHYROXINE SODIUM 175 MCG OR TABS 1 TABLET DAILY ??? UNKNOWN MED DOSAGE plaquinal BID ??? PLAQUENIL 200 MG OR TABS one tablet twice a day ??? WELLBUTRIN XL# 150 MG OR TB24 ONE TABLET DAILY (MARILYN), please make appt for med check with MD ??? FLUOXETINE HCL 20 MG OR TABS [...] MG OR TABS 1 tablet po qd ROS: CONSTITUTIONAL:NEGATIVE for fever, chills, change in weight INTEGUMENTARY/SKIN: noted bruising by the left popliteal fossa. RESP:NEGATIVE for significant cough or SOB EXAMINATION: BP 138/82 Pulse 68 Ht 5' 4 (1.626 m) Wt 189 lb 8 oz (85.957 kg) LMP Hysterectomy General Appearance: healthy, alert, active and mild distress MS: Left leg, decreased flexion, good extension. Painful to touch in the hamstring area, with mass like ball in the superior aspect of the posterior leg. There is bruising at the popliteal fossa. Thereis not tenderness or swelling in the distal leg. ASSESSMENT: X-RAY FINDINGS: not completed today. HAMSTRING INJURY PLAN: Orders Placed This Encounter ??? Consult ortho telegraph repeater technician Concerned that patient has torn hamstring muscle that could be a surgical case. I called sports med and spoke with Dr. Jones and they will see her today for further evaluation. ME AUDITOR documented in this encounter Nursing Notes 09/07/2009 2:15 PM CST >> MABEL PARHAM [facility] Sep 07, 2009 2:24 PM Patient presents with: Musculoskeletal Problem - Fell a week ago and is now having left leg pain. Bruise that is red on her leg. Pain draws down from buttocks to ankle Initial BP 138/82 Pulse 68 Ht 5' 4 (1.626 m) Wt 189 lb 8 oz (85.957 kg) LMP Hysterectomy Body mass index is 32.53 kg/(m^2).. BP completed using cuff size: large DEXA Q3 YR due on 04/10/2009 COLONOSCOPY Q5 YR INBASKET MESSAGE due on 04/29/2013 LDL Q 5 YRS due on 11/29/2013 LIPID MONITORING Q5 YEARS (NO INBASKET) due on 11/29/2013 TETANUS Q10 YR due on 08/30/2013 Mabel Parham CMA. documented in this encounter Plan of Treatment Not on filedocumented as of this encounter Visit Diagnoses Diagnosis Hamstring injury - Primary Injury, other and unspecified, hip and t high documented in this encounter Care Teams Scheduling Manager Relationship Specialty Start Date End Date Angeles Olsen MD PCP - General 02/26/02 08/28/10 documented as of this encounter
--- OUTSIDE RECORDS SUMMARY | 2022-04-16 19:39 | XMS_ITS | Encounter Summary ---
:1955 Author Organization [facility] Address [address] [place] [address]. [place] [address] Care Team Providers Name Role Phone Angeles Olsen MD Primary Care Provider [phone] Reason for Referral - Closed Specialty Diagnoses / Procedures Referred By Contact Refer red To Contact Diagnoses Hamstring muscle strain [facility] Jones [facility] [address] [place], [place] [address] Referral ID Status Reason Start Date Expiration Date Visits Requ ested Visits Authorized [id number] Closed 09/07/2009 08/17/2011 1 1 EN ROOM OPERATOR Reason for Visit Reason Comments Musculoskeletal Problem left, pain started at knee a nd goes up leg, feel lump under buttock, 1 wk ago Encounter Details Date Type Department Care Team Description 09/07/2009 Office Visit [facility] Santana Jones Hamstring Muscle Orthopedic DO Sulema Woodson (Primary Dx) [facility] [address] [facility], [address] [facility] [address] [place] [phone] Social History Tobacco Use Types Packs/Day Years Used Date Never Smoker Alcohol Use Standard Drinks/Week Comments Yes 0 (1 standard drink = 0.6 oz pure alcoho l) 1 glass of wine per week 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 Date Recorded 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 Hayden for a left hamstring injury that occurred 1 week ago. Onset: Following acute injury: slipped on ice, leg slipped out in front of patient. Immediate symptoms: [place] immediate pain in hamstring and buttock with tearing sensation. No pop felt. Was able to weightbear afterwards. Bruising developed in posterior thigh. No swelling. Pain with sitting. Mild tingling and pain down leg. Mitigating Factors: cold compresses, rest and elevation Symptoms have been improving since that time. Prior history of related problems: no prior problems with this area in the past. Patients past medical, surgical, social and family histories reviewed. Past medical history notable for: Up-to-date EMR problem list reviewed in [facility] chart REVIEW OF SYSTEMS: CONSTITUTIONAL:NEGATIVE for fever, chills, change in weight INTEGUMENTARY/SKIN: NEGATIVE for worrisome rashes, moles or lesions MUSCULOSKELETAL:See HPI above NEURO: NEGATIVE for weakness, dizziness or paresthesias BP 128/84 LMP Hysterectomy EXAM: GENERAL APPEARANCE: healthy, alert and no distress GAIT: anatalgic SKIN: no suspicious lesions or rashes NEURO: Normal strength and tone, sentation intact PSYCH: mentation appears normal and affect normal/bright MUSCULOSKELETAL: LEFT HIP: Inspection: Small defect in mid belly of hamstring noted with ecchymosis Palpation: Tender: left proximal and mid hamstring, left ischial tuberosity, Non-tender: left greater trochanter, right greater trochanter, left gluteus medius, right gluteus medius, left ASIS, right ASIS, left iliac crest, right iliac crest Range of Motion: Full ROM, both hips Strength: flexion: 5/5, extension 5/5, painful, abduction: 5/5, adduction: 5/5 Special tests: not done ASSESSMENT/PLAN: 844.9P Hamstring Muscle Strain (primary encounter diagnosis) Plan: Diagnosis explained and theraputic options discussed. Has good function and strength. Recommend PT program. Do not anticipate surgical referral. F/U in 4-6 weeks. X-RAY INTERPRETATION: No Hip X-Rays indicated EN ROOM OPERATOR documented in this encounter Nursing Notes 09/07/2009 3:45 PM CST >> CLAUDIA FARIAS [facility] Sep 07, 2009 5:05 PM Patient presents with: Musculoskeletal Problem - left, pain started at knee and goes up leg, feel lump under buttock, 1 wkago Initial BP 128/84 LMP Hysterectomy Estimated Body mass index is 32.53 kg/(m^2) as calculated from: Height of 5' 4 (1.626 m) as of an earlier encounter on 09/07/09 Weight of 189 lb 8 oz (85.957 kg) as of an earlier encounter on 09/07/09. BP completed using cuff size: large Claudia Farias, ATC documented in this encounter Plan of Treatment Not on filedocumented as of this encounter Visit Diagnoses Diagnosis Hamstring muscle strain - Primary Sprain and strain of unspecified site of knee and leg documented in this encounter Care Teams Dental Appliance Mechanic Relationship Specialty Start Date End Date Angeles Olsen MD PCP - General 02/26/02 08/28/10 documented as of this encounter
--- OUTSIDE RECORDS SUMMARY | 2022-04-16 19:40 | XMS_ITS | Encounter Summary ---
:1955 Author Organization [facility] Address [address] [place] [address]. [place] [address] Care Team Providers Name Role Phone Angeles Olsen MD Primary Care Provider [phone] Encounter Details Date Type Department Care Team Description 07/31/2007 Operative Report [facility] Lorena Hanna, (Fisher) Rowena Tai MD [address] [place] [address] [address] [place], [place] [address] [place], [place] [phone] (Wo rk) Social History Tobacco Use Types Packs/Day Years Used Date Never Smoker Alcohol Use Standard Drinks/Week Comments Yes 0 (1 standard drink = 0.6 oz pure alcoho l) 1 glass of wine per week 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 Date Recorded 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 POSTOPERATIVE DIAGNOSIS: Thyroid nodule left isthmus. PROCEDURE: Total thyroidectomy. ANESTHESIA: General. PREOPERATIVE MEDICATIONS: Cipro 400 mg IV. SURGEON: Lorena Hanna MD. PERIPHERAL VASCULAR TECH: KAVITHA Sanchez. INDICATIONS: The patient is a 52-year-old female who has recently been dealing with breast cancer and then was found to have a mass in her neck. The ultrasound showed a nodule in the right lower pole and a biopsy showed atypical follicular lesion. She presents now for right thyroid lobectomy, probable total. The patient is already on thyroid hormones and is very interested to have the whole thyroid removed if there is any question about the nature of her disease. PROCEDURE: The patient was placed supine. The head and neck were placed in extension with a bump between the scapulas. Transverse cervical neck creases had been marked in the preinduction area and theone most suitable was utilized for the exposure. Superior and inferior skin flaps were raised. The midline fascia was reflected to the right. Her thyroid gland is small and nodular. It is adherent to the surrounding tissues consistent with chronic thyroiditis. The upper pole was taken down first by double ligation and division. The inferior pole vessels were then ligated and the inferior parathyroid readily seen and preserved. The gland was reflected medially and the recurrent laryngeal nerve and superior parathyroid were seen and preserved. Meticulous dissection of numerous small nodular projections accomplished complete thyroid lobectomy of that right side. The dissection continued across the anterior trachea and then we turned attention to the left. Of note, the most dominant nodule apparent du ring the dissection is actually present in the left isthmus, although the entire gland has some subtle nodularity, but this appears to be the nodule of concern. Because of the abnormality of the thyroid tissue in general, probable chronic inflammation, the nature of the nodule in the left isthmus, thepatient is already on thyroid hormone and her desire for total thyroidectomy, we will proceed with the contralateral side. The upper pole vessels were taken down by double ligation and division. The inferior vessels were ligated. There is no middle thyroidal vein. The gland is reflected medially and both superior and inferior parathyroids were easily seen as was the recurrent laryngeal nerve, which was protected along its course. The remaining posterior attachments were divided, and the gland was submitted as total thyroidectomy with the dominant nodule actually present within the left isthmus. No frozen section was performed. The gland was submitted for permanence. The site was then inspected forhemostasis, irrigated and closed over a 10 round KRISTY drain. Closure was with running 3-0 Vicryl for the midline fascia, interrupted for platysma and 4-0 subcuticular Monocryl for skin. The patient tolerated the procedure well and was transferred to recovery in good condition. ESTIMATED BLOOD LOSS: Less than 20 cc. INTRAOPERATIVE FINDINGS: Small nodular thyroid with a dominant nodule in the left of the isthmus. In all, four parathyroids and both recurrent laryngeal nerves seen and preserved. Electronically signed on 08/05/2007 13:39 by LORENA HANNA MD MT: [id number] Name: VALERI ROJAS Account: [id number] : 1955 Procedure Date: 07/31/2007 Document: [id number] GER CARDIAC CATH documented in this encounter Plan of Treatment Not on filedocumented as of this encounter Visit Diagnoses Not on filedocumented in this encounter Care Teams Labor Gang Supervisor Relationship Specialty Start Date End Date Angeles Olsen MD PCP - General 02/26/02 08/28/10 documented as of this encounter
--- OUTSIDE RECORDS SUMMARY | 2022-04-16 19:40 | XMS_ITS | Encounter Summary ---
:1955 Author Organization [facility] Address [address] [place] [address]. 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 documented as of this encounter Progress Notes Interface, Automobile Detailer - 11/05/2010 6:14 AM CDT Patient Status Patient Status - Physical status Stable (s/s of potential complications absent or manageable) - Psychosocial status Stable Discharge Planning - Discharge From: [facility] - Patient Care Unit: Med Surg 2 - Discharge To: Home/Alternative home - Phone number after [phone] discharge: - Method of discharge: Wheel Chair - Transportation: Private, Discharge Information Discharge Information - Discharge information Discharge instructions reviewed with pt/family/so; Prescriptions given - Accompanied by Spouse - Mode of Travel Wheelchair Medications and Prescriptions Medications and Prescriptions - Medications and Prescriptions are needed Prescriptions Prescriptions sent to pharmacy Prescriptions given to patient 1) VICODIN 1-2 tablets every 4-6 hours as needed for pain (do not take more than 8 tablets in 24 hours, do not take with tylenol) 2) OSCAL 2 tablets twice daily for 1 week and then 1 tablet twice daily until gone 3) RESUME HOME MEDS Special Care Needs and Instructions - Diet Instructions: as tolerated, drink lots of water daily - Activity Instructions: Avoid strenuous activity for a few weeks, walking is a good exercise - Report temp if greater 101 degrees F than: - Symptoms/Problems to look 1. Swelling at incision site. for at home- call the 2. Bleeding at incision site. physician about: 3. Warmth, fever, or tenderness at incision site. 4. A sore throat that continues beyond three weeks. 5. Tingling or cramps in the hands, feet, or lips (signs of a problem with the parathyroid glands). - Who patient should call: Dr Garcia - Phone number of who patient [phone] should call: - Additional instructions for inspect incision daily for above listed wound care: signs/symptoms of infection - Additional instructions for change dressing daily dressings: Other Discharge Education, Materials, and Instructions - Other Education, Materials, Check BP 2-3x/week and Instructions: Call primary MD office if >165/95 Follow Up Care - Physician name: Dr Garcia [phone] - When to see physician: 1-3 weeks - Physician/clinician name: Dr Mills [phone] - When to see physician: 1-2 weeks for BP follow up Signatures Erendira Diggs (RN)[Signed 12:54] Authored: Patient Status, Discharge Planning, Discharge Information, Medications and Prescriptions, Special Care Needs and Instructions, Other Discharge Education, Materials, and Instructions, Follow Up Care documented in this encounter Plan of Treatment Not on filedocumented as of this encounter Visit Diagnoses Not on filedocumented in this encounter Care Teams Body Artist Relationship Specialty Start Date End Date Angeles Olsen MD PCP - General 02/26/02 08/28/10 System, Provider Not In PCP - General 08/29/10 06/30/13 documented as of this encounter
--- OUTSIDE RECORDS SUMMARY | 2022-04-16 19:40 | XMS_ITS | Encounter Summary ---
:1955 Author Organization [facility] Address [address] [place] [address]. [place] [address] Care Team Providers Name Role Phone Angeles Olsen MD Primary Care Provider [phone] Reason for Visit Reason Onset Date Comments Sinus Problem 06/28/2008 Encounter Details Date Type Department Care Team Description 06/28/2008 Telephone [facility] Eag an Vanessa Mills, Sinus Problem [address] [place] [address] [address] [facility] [phone] [place] [address] (Wo rk) Social History Tobacco Use Types Packs/Day Years Used Date Never Smoker Alcohol Use Standard Drinks/Week Comments Yes 0 (1 standard drink = 0.6 oz pure alcoho l) 1 glass of wine per week 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 Date Recorded 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 Mills. Quita Álvarez RN GER HVAC Telephone Encounter - Vanessa Mills - 06/29/2008 1:43 AM CST Recommend over the counter sudafed 60mg in am and in afternoon. I would be comfortable with faxing rx for steroid nasal spray (Fluticasone) as well. Would not give rx for antibiotics at this time given short duration of symptoms, <14 days. Vanessa Mills MD Internal Medicine/Pediatrics GER HVAC Telephone Encounter - Gina Marinelli - 06/28/2008 1:11 PM CST Pt calling as she thinks she has a sinus infection. Stuffy nose , SAWANT over eyes, postnasal drip sinceSaturday. Did not take temp but has sweats once in awhile. Also feels tired. She does not have chronic sinus infections in her HX. I did explain to her that she needs to have an appt. Scheduled her on at [address] Mills. Valeri requests that I send Dr. Mills the following message. Pt does not want to come in for appt because she said she knows what she has. . She really wants Dr. Mills just to call in an antibiotic. I also suggested she sign up for Mychart and could schedule an E-visit in the future. To Dr. Mills for review. Gina Marinelli RN GER HVAC documented in this encounter Plan of Treatment Not on filedocumented as of this encounter Visit Diagnoses Not on filedocumented in this encounter Care Teams Concrete Batcher Relationship Specialty Start Date End Date Angeles Olsen MD PCP - General 02/26/02 08/28/10 documented as of this encounter
--- OUTSIDE RECORDS SUMMARY | 2022-04-16 19:40 | XMS_ITS | Encounter Summary ---
:1955 Author Organization [facility] Address [address] [place] [address]. [place] [address] Care Team Providers Name Role Phone Angeles Olsen MD Primary Care Provider [phone] Reason for Visit Reason Onset Date Comments Depression 08/27/[address] Hull Encounter Details Date Type Department Care Team Description 08/27/2007 Telephone [facility] Eag an Vanessa Mills Depression (thyroid [address] MD Vanessa report from Dr Hull) [place] [address] [place] [address] [place] [address] Social History Tobacco Use Types Packs/Day Years Used Date Never Smoker Alcohol Use Standard Drinks/Week Comments Yes 0 (1 standard drink = 0.6 oz pure alcoho l) 1 glass of wine per week 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 Date Recorded 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 She is tolerating higher dose of fluoxetine. Has appt for counseling. I expect depression to improve with both medication changes. Pt comfortable with above dosing, will be back on one month for TSH/T4 levels. Pt informed to call with questions. Vanessa Mills MD Internal Medicine/Pediatrics PENDENT VIDEO PRODUCER Telephone Encounter - Heavenly Simpson - 08/27/2007 9:11 AM CST Pt is going to fax to [facility] via triage the thyroid report from Dr Hull. Dr Hull has changed RX formedication to 137 mg daily. Pt wants to take this in addition to JTP 100 mcg levothyroxine. Told pt not to do this, she will fax her copy of lab report to [facility]. Is really interested in knowing how this can all affect the depression. States that she has no energy, has muscle pain and is depressed. Wantsto know how a person would be feeling with the result being 32.36. Pt can be reached on cell phone [phone]. Heavenly Simpson RN PENDENT VIDEO PRODUCER documented in this encounter Plan of Treatment Not on filedocumented as of this encounter Visit Diagnoses Diagnosis Unspecified hypothyroidism - Primary documented in this encounter Care Teams Mud Grinder Relationship Specialty Start Date End Date Angeles Olsen MD PCP - General 02/26/02 08/28/10 documented as of this encounter
--- OUTSIDE RECORDS SUMMARY | 2022-04-16 19:40 | XMS_ITS | Encounter Summary ---
:1955 Author Organization [facility] Address [address] [place] [address]. [place] [address] Care Team Providers Name Role Phone Angeles Olsen MD Primary Care Provider [phone] Reason for Visit Reason Onset Date Comments Refill Request 11/07/2008 Welbutrin XL Encounter Details Date Type Department Care Team Description 11/07/[address] 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 Last refill 08/01/08 and last OV for PX 11/24/07. MD authorization required. Last PHQ-9 score on record= 19 PHQ-9 (scale: 0 to 3) 08/25/2007 09/24/2007 No Interest in doing things 3 2 Feeling depressed 2 3 Trouble sleeping 3 3 Tired / No energy 3 3 No appetite or over-eating 2 2 Feeling bad about self 1 2 Trouble concentrating 1 2 Moving slow or restless 0 0 Suicidal thoughts 1 2 TOTAL SCORE------> 16 19 documented in this encounter Plan of Treatment Not on filedocumented as of this encounter Visit Diagnoses Diagnosis Depressive disorder, not elsewhere class ified - Primary documented in this encounter Care Teams Box Sealing Machine Operator Relationship Specialty Start Date End Date Angeles Olsen MD PCP - General 02/26/02 08/28/10 documented as of this encounter
--- OUTSIDE RECORDS SUMMARY | 2022-04-16 19:40 | XMS_ITS | Encounter Summary ---
:1955 Author Organization [facility] Address [address] [place] [address] Care Team Providers Name Role Phone Angeles Olsen MD Primary Care Provider [phone] Reason for Referral - Closed Specialty Diagnoses / Procedures Referred By Contact Refer red To Contact Diagnoses Knee pain Santana Jones [facility] [address] [place], [place] [address] Referral ID Status Reason Start Date Expiration Date Visits Requ ested Visits Authorized [id number] Closed 03/14/2008 08/17/2011 1 1 Reason for Visit Reason Comments Knee Pain Left knee pain, started 3 mo nths ago after completing the race for the [place] walk, 3 miles Encounter Details Date Type Department Care Team Description 03/14/2008 Office Visit [facility] Santana Jones Knee Pain (Primary Orthopedic DO Chintan Dx) [facility] [address] [facility], [address] [facility] [address] [place] [phone] Social History Tobacco Use Types Packs/Day Years Used Date Never Smoker Alcohol Use Standard Drinks/Week Comments Yes 0 (1 standard drink = 0.6 oz pure alcoho l) 1 glass of wine per week 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 Date Recorded 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 Duggan for a left knee pain that started 3 months ago. Pain started in the back of the left knee the day after a 3 mile walk and has somewhat improved. Now her primary concern is the occasional pain and slippage of both knee caps that she feels with water aerobics and with going up and down stairs. Patient hasfamily history of arthritic changes in her immediate family. Onset: Attributed to specific activity. Mechanism of injury: Increased mileage with walking. Immediate symptoms: Immediate sharp pain, delayed pain, locking, instability and cracking. Mitigating Factors: Tylenol and rest Symptoms improved initially but have been waxing and waning since that time. Prior history of related problems: no prior problems with this area in the past. Patients past medical, surgical, social and family histories reviewed. Past medical history notable for: Up-to-date EMR problem list reviewed in [facility] chart REVIEW OF SYSTEMS: CONSTITUTIONAL:NEGATIVE for fever, chills, change in weight INTEGUMENTARY/SKIN: NEGATIVE for worrisome rashes, moles or lesions MUSCULOSKELETAL:See HPI above NEURO: NEGATIVE for weakness, dizziness or paresthesias BP 110/70 Ht 5' 5 (1.651 m) Wt 185 lb (83.915 kg) LMP Hysterectomy EXAM: GENERAL APPEARANCE: healthy, alert and no distress GAIT: antalgic SKIN: no suspicious lesions or rashes NEURO: Normal strength and tone, mentation intact and speech normal PSYCH: mentation appears normal and affect normal/bright MUSCULOSKELETAL: LEFT KNEE Inspection: AP/lateral alignment normal Tender: lateral patellar facet, medial patellar facet, popliteal region Non-tender: inferior pole patella, patella tendon, quadriceps insertion, MCL, LCL, lateral joint line, medial joint line Active Range of Motion: full flexion, pain with flexion, full extension, pain with extension Strength: quad 5/5, Hamstrings 5/5, Gastroc 5/5, Tibialis anterior 5/5 and Peroneals 5/5 Special tests: normal Valgus stress test, normal Varus, negative Stevie's test, negative pivot shift, negative posterior drawer, negative Brittney's , no apprehension with lateral stress of the patella Also examined: hip full range of motion RIGHT KNEE: Inspection: AP/lateral alignment normal Non-tender: patellar facets, MCL, LCL, lateral joint line, medial joint line, IT band, posterior knee Active Range of Motion: all normal Strength: quad 5/5, Hamstrings 5/5, Gastroc 5/5, Tibialis anterior 5/5, Permeals 5/5 and core strength 5/5 hip abductors and other core muscles Special tests: normal Valgus stress test, normal Varus, negative Stevie's test, negative pivot shift, negative posterior drawer, no posterolateral corner signs, negative Brittney's, no apprehension with lateral stress of the patella. ASSESSMENT/PLAN: Knee Pain [719.46D] Plan: Patellofemoral knee pain. Diagnosis explained and theraputic options discussed. Recommend PT program to reduce pain and improve function. Declined theraputic cortisone injection. If no improvement within 4-6 weeks then will consider MRI scan for further assessment. X-RAY INTERPRETATION: X-Ray of the Left Knee: 3-view, [place], lateral, sunrise ordered and interpreted in the office today was negative for fracture, subluxation or joint space abnormality. documented in this encounter Nursing Notes 03/14/2008 1:15 PM CDT >> DEA OWENS Mar 14, 2008 1:19 PM Valeri E Shlomo presents for left knee pain. Initial BP 110/70 Ht 5' 5 (1.651 m) Wt 185 lb (83.915 kg) LMP Hysterectomy Body mass index is30.79 kg/(m^2).. BP completed using cuff size: regular Dea Owens ATC documented in this encounter Plan of Treatment Not on filedocumented as of this encounter Procedures Procedure Name Priority Date/Time Associated Diagnosis Comme nts HC X-RAY KNEE AP Routine 03/14/2008 Knee Pain Results for this STANDING BILATERAL procedure are in the results section . HC X-RAY KNEE 1-2 Routine 03/14/2008 Knee Pain Results fo r this VIEWS procedure are i n the results section . documented in this encounter Results X-RAY KNEE BILAT STANDING (AP ONLY) (03/14/2008) Anatomical Region Laterality Modality Other Impressions 03/14/2008 negative for fracture, subluxation or ephraim int space abnormality. Santana Jones DO GENERAL IMAGING X-RAY KNEE 1 OR 2 VIEW (03/14/2008) Anatomical Region Laterality Modality Other Impressions 03/14/2008 negative for fracture, subluxation or ephraim int space abnormality. Santana Jones DO GENERAL IMAGING documented in this encounter Visit Diagnoses Diagnosis Knee pain - Primary Pain in joint, lower leg documented in this encounter Care Teams Salesperson New Cars Relationship Specialty Start Date End Date Angeles Olsen MD PCP - General 02/26/02 08/28/10 documented as of this encounter
--- OUTSIDE RECORDS SUMMARY | 2022-04-16 19:40 | XMS_ITS | Encounter Summary ---
:1955 Author Organization [facility] Address [address] [place] [address]. [place] [address] Care Team Providers Name Role Phone Angeles Olsen MD Primary Care Provider [phone] Reason for Visit Reason Onset Date Comments Medication Request 07/11/2008 ? abx Encounter Details Date Type Department Care Team Description 07/11/2008 Telephone [facility] Eag Vansesa Byrne Medication Request (? 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 NADEEM Conde TARY ENGINEERING TEACHER Telephone Encounter - Minesh Smith - 07/11/2008 9:28 AM CST Please call: OK w/ course of atbx. Rx for Levaquin sent in. OK to cont w/ other meds. Call or RTC if sx not sig better w/in next 10 days. TARY ENGINEERING TEACHER Telephone Encounter - Carmenza Fernandez - 07/11/2008 9:03 AM CST Pt says fluticasone and pseudoephedrine worked for nasal eliazar for a few days. She cont to have post nasal drip in the back of her throat. SAWANT above her eyes. Should she have abx now since she is not getting better? See 06-30-08 OV. Pt would like phone call or message if you are prescribing an abx. Carmenza Fernandez RN TARY ENGINEERING TEACHER documented in this encounter Plan of Treatment Not on filedocumented as of this encounter Visit Diagnoses Diagnosis Maxillary sinusitis - Primary Chronic maxillary sinusitis documented in this encounter Care Teams Wedding Planner Relationship Specialty Start Date End Date Angeles Olsen MD PCP - General 02/26/02 08/28/10 documented as of this encounter
--- OUTSIDE RECORDS SUMMARY | 2022-04-16 19:40 | XMS_ITS | Encounter Summary ---
:1955 Author Organization [facility] Address [address] [place] [address]. [place] [address] Care Team Providers Name Role Phone Angeles Olsen MD Primary Care Provider [phone] Reason for Referral Referral not Required - Closed Specialty Diagnoses / Procedures Referred By Contact Refer red To Contact Diagnoses Personal history of colonic polyps Vanessa Mills [place] MD GASTROENTEROLOGY-[address] [place], [place] [address] [address] [place] [address] Phone: Fax: Referral ID Status Reason Start Date Expiration Date Visits Requ ested Visits Authorized [id number] Closed 11/24/2007 08/17/2011 1 1 Reason for Visit Reason Comments Physical Encounter Details Date Type Department Care Team Description 11/24/2007 Office Visit [facility] Vanessa Mills EDICAL EXAM (Primary Dx); Alma Mendez MD SCREENING MAL NEOP-BREAST NOS; [address] HYPOTHYROIDISM NOS; FABIO Marquez [address] A PERS HX COLONIC POLYPS; [phone] [place], [place] U[place]PEC [place] IPATION [address] Social History Tobacco Use Types Packs/Day Years Used Date Never Smoker Alcohol Use Standard Drinks/Week Comments Yes 0 (1 standard drink = 0.6 oz pure alcoho l) 1 glass of wine per week 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 Date Recorded 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 Initial BP 128/80 Pulse 56 Resp 16 Ht 5' 4.25 (1.63m) Wt 189 lbs (85.7kg) LMP Hysterectomy Body mass index is 32.19 kg/(m^2).. BP completed using cuff size: large. HEALTH CARE MAINTENANCE: LMP: Hysterectomy and HRT - Stopped 2002. Was on hormone patch for 10 months Pap: Not Indicated CORPORATE WEBMASTER: None Mammogram: 03/03/07 Colon Ca Screen: Colonoscopy-04/2005-Polyps DEXA scan: 04/10/06 Tetanus: 08/2003 Pneumovax: NA SAFETY: ======= Do you feel safe in your relationship(s)? YES Do you have a gun in your home? Yes Do you wear your seatbelt regularly? YES Do you use sunscreen? YES Fasting? YES Quita Keenan is here for a general check up. She is fasting. Other concerns today: ROUTINE MEDICAL EXAM Sees meat stuffer and for annual exams SCREENING MAL NEOP-BREAST NOS Bilateral mastectomies with reconstructive surgery. No longer needs yearly mammograms. HYPOTHYROIDISM NOS Followed by industrial cleaning technician. He increased her dose to 150mcg at last visit. She wishes to have TSH checked, she is due for visit with industrial cleaning technician in January. Energy is a bit low. No heat or cold intolerance, does have sluggish colon/constipation. PERS HX COLONIC POLYPS Due for repeat colonoscopy this year. Was told to return in 3 yrs for evaluation. Given hx of colon cancer does not want to wait 5 yrs for surviellance. No currently change in bowel habits, recently bought miralax otc. No blood. UNSPEC CONSTIPATION Chronic issue. Just purchased Miralax OTC. No blood. Has tried dietary changes which help a little. Hx of colon polyps, no acute changes. Past Medical History Diagnosis Date ??? HEADACHE ??? TM JOINT DISORDER, UNSPEC ??? OSTEOARTHROS NOS-OTHER SITE 2003 Hands, multiple joints, followed by Rheum ??? FEMALE STRESS INCONTINENCE ??? MEDICAL HISTORY OF - 2002 DEXA normal ??? MENOPAUSAL DISORDER NEC 2002 On HRT x 9months, then DC ??? PERS HX COLONIC POLYPS 04/2005 adenoma ??? PURE HYPERCHOLESTEROLEM 2005 GOAL IS LDL<130 ??? 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, mastectomy HABITS: Tob: none ETOH: 1/week Calcium: 1500mg supplement Caffeine: 1/day Exercise: no formal program QUALITY CLOTH TESTER HISTORY: LMP: tahbso Self Breast exam: Recent surgery PMH, PSH, FH, medications, allergies and immunizations [...] pain, heartburn, or change in bowel habits, chronic constipation :NEGATIVE for frequency, dysuria, or hematuria MUSCULOSKELETAL:NEGATIVE for significant arthralgias or myalgia NEURO: NEGATIVE for weakness, dizziness or paresthesias ENDOCRINE: NEGATIVE for polyuria/dipsia, temperature intolerance, skin/hair changes HEME/ALLERGY/IMMUNE: NEGATIVE for bleeding problems PSYCHIATRIC: hx of depression, stable. Some marital relationship issues unresolved. EXAM BP 128/80 Pulse 56 Resp 16 Ht 5' 4.25 (1.63m) Wt 189 lbs (85.7kg) LMP Hysterectomy BMI = Body mass index is 32.19 kg/(m^2). GENERAL APPEARANCE: Alert, pleasant, NAD EYES: PERRL, EOMI, conjunctiva clear HENT: TM normal bilaterally. Nose and mouth without lesions NECK: no adenopathy, thyroid normal to palpation RESP: lungs clear to auscultation bilaterally BREAST: bilateral implants with healed incisions. CV: regular rate and rhythm, normal S1 [...] peripheral edema, pedal pulses palpable Assessment: V70.0 ROUTINE MEDICAL EXAM (primary encounter diagnosis) Note: Anticipatory guidance given today regarding diet, exercise and calcium intake, safety. SBE taught. Plan: A.M.A. LIPID PANEL Discussed ideal body weight, risk for DM. LDL goal <130 V76.10 SCREENING MAL NEOP-BREAST NOS Note: bilateral mastectomies with implants Plan: no mammogram indicated 244.9 HYPOTHYROIDISM NOS Note: stable, followed by industrial cleaning technician Plan: TSH W/FREE T4 REFLEX Check TSH, defer care to specialist, continue current med V12.72 PERS HX COLONIC POLYPS Note: due for screening Plan: CONSULT [facility] Referral given 564.00 UNSPEC CONSTIPATION Note: chronic issue Plan: GLYCOLAX OR POWD Rx for generic given, use as needed documented in this encounter Plan of Treatment Not on filedocumented as of this encounter Procedures Procedure Name Priority Date/Time Associated Diagnosis Comme nts HCL TSH W/FREE T4 Routine 11/24/2007 10:33 Hypothyroidism Nos Results for this REFLEX AM CDT procedure are i n the results section. CL AFF A.M.A. LIPID Routine 11/24/2007 10:33 Routine Medical E xam Results for this PANEL AM CDT procedure are i n the results section. documented in this encounter Results TSH W/FREE T4 REFLEX (11/24/2007 10:33 AM CDT) athologist Signature TSH 4.24 0.4 - 5.0 [facility] mU/L [facility] Specimen Anatomical Collection Method Collection Time Receive d Time (Source) Location / / Volume Laterality 11/24/2007 10:33 11/24/2007 AM CDT 10:38 AM CDT Vanessa Mills MD LABORATORY Performing Organization Address City/[facility] Code Phon e Number [facility] [address] [place] [address] [facility] (ABNORMAL) A.M.A. LIPID PANEL (11/24/2007 10:33 AM CDT) athologist Signature Cholesterol 269 (H) 0 - 200 [facility] mg/dL CLINIC LAB Comment: LDL Cholesterol is the primary guide to therapy: LDL-cholesterol goal in high risk patients is <100 mg/dL and in very high risk patients is <70 mg/dL. The NCEP recommends further evaluation of: patients with cholesterol <200 mg/dL if additional risk factors are present, cholesterol >240 mg/dL, triglycerides >150 mg/dL, or HDL <40 mg/dL. Triglycerides 218 (H) 0 - 150 mg/dL [facility] HDL Cholesterol 51 50 - 110 mg/dL [facility] LDL Cholesterol Calculated 175 (H) 0 - 129 mg/dL [facility] Comment: LDL Cholesterol is the primary guide to therapy: LDL-cholesterol goal in high risk patients is <100 mg/dL and in very high risk patients is <70 mg/dL. VLDL-Cholesterol 44 (H) 0 - 30 mg/dL [facility] Cholesterol/HDL Ratio 5.3 (H) 0.0 - 5.0 [facility] Specimen Anatomical Collection Method Collection Time Receive d Time (Source) Location / / Volume Laterality 11/24/2007 10:33 11/24/2007 AM CDT 10:38 AM CDT Vanessa Mills MD LABORATORY Performing Organization Address City/[facility]/ZIP Code Phon e Number [facility] [address] [place] [address] [facility] documented in this encounter Visit Diagnoses Diagnosis Routine general medical examination at a health care facility - Primary Breast screening, unspecified Unspecified hypothyroidism Personal history of colonic polyps Unspecified constipation documented in this encounter Care Teams Ornament Setter Relationship Specialty Start Date End Date Angeles Olsen MD PCP - General 02/26/02 08/28/10 documented as of this encounter
--- OUTSIDE RECORDS SUMMARY | 2022-04-16 19:40 | XMS_ITS | Encounter Summary ---
:1955 Author Organization [facility] Address [address] [place] [address] Care Team Providers Name Role Phone Angeles Olsen MD Primary Care Provider [phone] Reason for Visit [facility] Physical Therapy (Routine) - Closed Specialty Diagnoses / Procedures Referred By Contact Refer red To Contact Santana Jones DO [facility] ATHLETIC [facility] ORTHOPEDIC [facility] [address] [place], [place] [address] Referral ID Status Reason Start Date Expiration Date Visits Requ ested Visits Authorized HP- KNEE Closed 03/25/2008 08/17/2008 20 18 Encounter Details Date Type Department Care Team Description 03/25/2008 Therapy Visit [facility] Khoa Reaves in Joint, Lower Medicine - [place] W, PT Leg (Primary Dx) Physical Therapy [id number] [address] Paulette Castro [facility]. 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 Pt did not return to therapy after first visit. Khoa Reaves - 03/25/2008 12:00 PM CDT Initial evaluation was completed. Please refer to the daily flowsheet for treatment today and total treatment time. Does this patient have Medicare or Medicaid as primary or secondary insurance? NO documented in this encounter Plan of Treatment Not on filedocumented as of this encounter Procedures Procedure Name Priority Date/Time Associated Diagnosis Comme [facility] Z THERAPEUTIC Routine 03/25/2008 12:01 PM Pain in Joint, Low er EXERCISES CDT Leg documented in this encounter Visit Diagnoses Diagnosis Pain in joint, lower leg - Primary documented in this encounter Care Teams Inspector Semiconductor Wafer Relationship Specialty Start Date End Date Angeles Olsen MD PCP - General 02/26/02 08/28/10 documented as of this encounter
--- OUTSIDE RECORDS SUMMARY | 2022-04-16 19:40 | XMS_ITS | Encounter Summary ---
:1955 Author Organization [facility] Address [address] [place] [address]. [place] [address] Care Team Providers Name Role Phone Angeles Olsen MD Primary Care Provider [phone] Reason for Visit Reason Onset Date Comments Refill Request 05/13/2008 HCTZ Encounter Details Date Type Department Care Team Description 05/13/2008 Refill [facility] Eag Vanessa Byrne Refill Request (HCTZ) 14[address] [facility] [place] [address] [place] [address] [place] [address] (Wo rk) Social History Tobacco Use Types Packs/Day Years Used Date Never Smoker Alcohol Use Standard Drinks/Week Comments Yes 0 (1 standard drink = 0.6 oz pure alcoho l) 1 glass of wine per week 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 Date Recorded 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 encounter Miscellaneous Notes Telephone Encounter - Yuliana Radford - 05/13/2008 8:59 AM CDT RF request for Hydrochlorothiazide Ok per RN Protocol x6 mos RTC August Yuliana Radford RN Last 1 Encounter BP Readings: Date BP 03/14/2008 110/70 POTASSIUM Date Value Range Status 09/24/07 5.1 3.4-5.3 (mmol/L) Final ] CREATININE Date Value Range Status 09/24/07 0.92 0.60-1.30 (mg/dL) Final ] -OV every 6 months (review last provider visit notes) -BP <140/90 for Diabetics -BP <130/80 for Vascular Disease -K+ or Basic Metabolic, Creatinine every 6 months & after dosage change -Re-check BP 1-2 months after dosage change Category: Hypertension/Diuretics documented in this encounter Plan of Treatment Not on filedocumented as of this encounter Visit Diagnoses Diagnosis Unspecified essential hypertension documented in this encounter Care Teams Agency Owner Relationship Specialty Start Date End Date Angeles Olsen MD PCP - General 02/26/02 08/28/10 documented as of this encounter
--- OUTSIDE RECORDS SUMMARY | 2022-04-16 19:40 | XMS_ITS | Encounter Summary ---
:1955 Author Organization [facility] Address [address] [place] [address]. [place] [address] Care Team Providers Name Role Phone Angeles Olsen MD Primary Care Provider [phone] System, Provider Not In Primary Care Provider Unavailable Encounter Details Date Type Department Care Team Description 08/02/2007 Historic Results [facility] Marlin Rodríguez, [address] [facility] FAB[place] [address] [address] [facility] [phone] [place] [address] (Wo rk) Social History Tobacco Use Types Packs/Day Years Used Date Never Smoker Alcohol Use Standard Drinks/Week Comments Yes 0 (1 standard drink = 0.6 oz pure alcoho l) 1 glass of wine per week 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 Date Recorded 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 documented in this encounter Results Basic metabolic panel (08/02/2007 11:02 AM RETAIL LOAN OFFICER) P athologist Signature Sodium 142 133 - 144 [facility] mmol/L Comment: Results confirmed by repeat denise t Potassium 3.9 3.4 - 5.3 mmol/L [facility] Chloride 103 94 - 109 mmol/L [facility] Comment: Results confirmed by repeat denise t Carbon Dioxide 30 20 - 32 mmol/L [facility] Glucose 89 60 - 99 mg/dL [facility] Urea Nitrogen 8 7 - 30 mg/dL [facility] Creatinine 0.81 0.60 - 1.30 mg/dL [facility] GFR Estimate 79 >60 mL/min/1.7m2 [facility] GFR Estimate If Black >90 >60 mL/min/1.7m2 [facility] Calcium 9.3 8.5 - 10.4 mg/dL [facility] Anion Gap 10 6 - 17 mmol/L [facility] Specimen Anatomical Collection Method Collection Time Receive d Time (Source) Location / / Volume Laterality 08/02/2007 11:02 08/02/2007 AM RETAIL LOAN OFFICER 11:00 AM RETAIL LOAN OFFICER Marlin Murphy MD LAB - BLOOD ORDERABLES Performing Organization Address City/State/ZIP Code Phon e Number [facility] documented in this encounter Visit Diagnoses Not on filedocumented in this encounter Care Teams Biostatistician Relationship Specialty Start Date End Date Angeles Olsen MD PCP - General 02/26/02 08/28/10 System, Provider Not In PCP - General 08/29/10 06/30/13 documented as of this encounter
--- OUTSIDE RECORDS SUMMARY | 2022-04-16 19:40 | XMS_ITS | Encounter Summary ---
:1955 Author Organization [facility] Address [address] [place] [address]. [place] [address] Care Team Providers Name Role Phone Angeles Olsen MD Primary Care Provider [phone] Encounter Details Date Type Department Care Team Description 09/29/2007 Operative Report Melissa Gama MD (Voice Instructor) 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 Ongoing breast reconstruction. 2. History of breast cancer. POSTOPERATIVE DIAGNOSIS: 1. Ongoing breast reconstruction. 2. History of breast cancer. PROCEDURE: 1. Removal of bilateral tissue expanders. 2. Placement of bilateral permanent implants. 3. Revision of mastectomy scar with complex closure of 12 cm. DESCRIPTION OF PROCEDURE: Valeri Rojas was marked for incisions and taken to the operating room.General anesthesia was administered. The chest area was prepped and draped in a sterile manner. On the right side, an incision was made through the mastectomy scar, and dissection was carried down to the underlying pectoralis muscle. The muscle was divided along its fibers. The underlying tissue warehouse team leader was encountered. This was freed from surrounding tissue using blunt dissection. The tissue warehouse team leader was then ruptured and removed from the pocket. The anterior axillary line and the inframammary fold were reinforced with interrupted 2-0 PDS suture. A 700 mL sizer was placed within the pocket, and this was felt to be too small for the patient. A larger permanent implant was then chosen. The pocket was irrigated with antibiotic solution, and the implant was placed within the pocket. The pectoralis muscle was reapproximated using interrupted 3-0 Monocryl sutures. The skin was closed temporarily with karolina. On the left side, an incision was made through the mastectomy scar, and dissection was carried downto the underlying pectoralis muscle. The pectoralis muscle was divided along its fibers. The underlying tissue warehouse team leader was ruptured and removed from the pocket. The anterior axillary line was reinforced using interrupted 2-0 PDS suture. A similar sized implant was placed within the pocket. The pectoralis muscle was reapproximated using interrupted 3-0 Monocryl suture. The skin was closed temporarilywith karolina. The patient was brought to the upright position, and she had reasonable symmetry but still irregular contours. Additional tailoring to the inframammary fold and the anterior axillary line was necessary bilaterally. These areas were marked. The patient was returned to the supine position. On the right side, the implant was removed. Additional tacking sutures of interrupted 2-0 PDS sutures were placed along the inframammary fold. The inframammary fold and the anterior axillary line were then reinforced with running 2-0 PDS suture. Scoring of the capsule was done for a short distance inferiorly. The pocket was irrigated with normal saline, and the implant was then replaced. This resulted in improved contours. The pectoralis muscle was reapproximated using interrupted 3-0 Monocryl sutures. The skin was closed temporarily with karolina. On the left side, the implant was also removed and again tacking sutures were placed along the anterior axillary line and the inframammary fold. These sutures were reinforced with a running 2-0 PDS suture. The pocket was irrigated with antibiotic solution. A permanent implant was placed. The pectoralis muscle was reapproximated using interrupted 3-0 Monocryl suture. The skin was closed with interrupted 3-0 Monocryl in the subcutaneous tissue followed by running 4-0 subcuticular Monocryl suture. The patient was brought to the upright position, and additional skin needed to be excised from the right mastectomy scar in order to achieve improve contours. This area was marked with karolina. The patient was returned to the supine position. There remained fullness along the superior aspect of the anterior axillary area, and so liposuctionwas completed. Puente's solution was infiltrated bilaterally. Standard liposuction was then completedwith a 4 mm cannula. The excess skin associated with the right mastectomy scar was sharply excised. Hemostasis was achieved. The tissue was sent to Pathology. The incision was reapproximated using interrupted 3-0 Monocrylin the subcutaneous tissue followed by running 4-0 subcuticular Monocryl suture. Xeroform followed by light dressing was applied. The patient was circumferentially wrapped with double 4 inch Jeremi bandage. The patient had 200 mL of Puente's solution infiltrated and removal of 250 mL of lipo aspirate. IMPLANT INFORMATION: The patient has smooth, round, high profile gel implant by [place] in place, Reference No. [id number]. On the left side, it is Serial No. [id number]. On the right side, it is Serial No. [id number]. Both implants are 800 mL. Electronically signed on 10/01/2007 08:01 by KAYLAH GAMA MD [place]: [id number] Name: VALERI ROJAS Account: [id number] : 1955 Procedure Date: 09/29/2007 Document: [id number] RITIES CLERK documented in this encounter Plan of Treatment Not on filedocumented as of this encounter Visit Diagnoses Not on filedocumented in this encounter Care Teams Derrick Builder Relationship Specialty Start Date End Date Angeles Olsen MD PCP - General 02/26/02 08/28/10 documented as of this encounter
--- OUTSIDE RECORDS SUMMARY | 2022-04-16 19:40 | XMS_ITS | Encounter Summary ---
:1955 Author Organization [facility] Address [address] [place] [address]. 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 documented in this encounter Results Cytopathology (07/02/2007 11:31 AM PROGRESSIVE ASSEMBLER AND FITTER) Component Value Ref Test Analysis Performed At [facility] Range Method Time Signature Copath CASE: [id number] ^ COPATH Report Patient Name: VALERI ROJAS MR#: [id number] Specimen #: [id number] Collected: 07/02/2007 Received: 07/02/2007 Reported: 07/03/2007 16:26 Ordering Phy(s): VERITO JONES Additional Phy(s): BRODERICK PAIGE SPECIMEN/STAIN PROCESS: FNA-thyroid, right ? Pap-Cyto x 8, Staley's stain-cyto x 6 ---- CYTOLOGIC INTERPRETATION: FNA-thyroid, right: ?? Atypical. ??See description. Specimen Adequacy:Satisfactory for evaluation. Electronically signed out by: Carson Kapoor M.D. Processed and screened at [facility] CLINICAL HISTORY: Right thyroid mass. , GROSS: FNA-thyroid, right: ? 6 AIR DRIED AND 8 FIXED SLIDES REC EIVED MICROSCOPIC: The staley and Pap stained smears show variable cellularity from low to increased. ??Watery colloid is present in the background on some of the slides, but is scanty on others. ??Areas of smear artifact a nd drying artifact are present. ??On several slides the cells are yocha dehe ded with nuclear overlap. ??There are areas with nuclear enlargement, as well as microfollicular structures associated with increased cellula rity on two to three of the slides. ??Some of the cells show nuclear aj oves and small nucleoli but no well developed nuclear pseudoinclusion s are seen. Rare mitotic figures are present. The cytologic findings are atypical. ??Because of the nuclea r features mentioned above, a papillary carcinoma or follicular variant cannot be excluded. ??Because of the microfollicular structures, the d ifferential would also include a follicular lesion including a dominant nodule. Surgical excision of the lesion would be required to separat e out these possibilities. ??Clinical correlation is required. SHERLYN/kirill 07-03-07 TESTING LAB LOCATION: [address] ??[id number] COLLECTION SITE: Client: ??[facility] Location: ??[place] (R) Specimen Anatomical Collection Method Collection Time Receive d Time (Source) Location / / Volume Laterality 07/02/2007 11:31 07/03/2007 4:27 AM PROGRESSIVE ASSEMBLER AND FITTER PM PROGRESSIVE ASSEMBLER AND FITTER Verito Jones MD LAB - COPATH SPECIAL DIAG OR DERABLES Performing Organization Address City/State/ZIP Code Phon e Number COPATH documented in this encounter Visit Diagnoses Not on filedocumented in this encounter Care Teams Doughnut Machine Operator Relationship Specialty Start Date End Date Angeles Olsen MD PCP - General 02/26/02 08/28/10 System, Provider Not In PCP - General 08/29/10 06/30/13 documented as of this encounter
--- OUTSIDE RECORDS SUMMARY | 2022-04-16 19:40 | XMS_ITS | Encounter Summary ---
:1955 Author Organization [place] Address [address] [place] [address]. [place] [address] Care Team Providers Name Role Phone Angeles Olsen MD Primary Care Provider [phone] Reason for Visit Reason Comments Pre-Op Exam Encounter Details Date Type Department Care Team Description 07/27/2007 Office Visit [facility] Vanessa Mills MD [address] [place], [place] [address] PREOP EXAM OTHER SPECIFIED (Primary Dx); Carson Fields MD XXX RESIGNED XXX [address] [place] [id number] HYPOTHYROIDISM NOS; [address] DUCTAL CARCINOMA IN SITU; [place] Mar[place] [address] ELEV BL PRES W/O HYPERTN [phone] Social History Tobacco Use Types Packs/Day Years Used Date Never Smoker Alcohol Use Standard Drinks/Week Comments Yes 0 (1 standard drink = 0.6 oz pure alcoho l) 1 glass of wine per week 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 Date Recorded Female 06/29/2019 1:44 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 documented as of this encounter Last Filed Vital Signs Vital Sign Reading Time Taken Comments Blood Pressure 140/80 07/27/2007 2:30 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 Pulse 68 07/27/2007 2:30 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 Temperature 36.8 ??C (98.3 ??F) 07/27/2007 2:30 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 Respiratory Rate 16 07/27/2007 2:30 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 Oxygen Saturation - - Inhaled Oxygen Concentration - - Weight 84.8 kg (187 lb) 07/27/2007 2:30 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 Height 162.6 cm (5' 4) 07/27/2007 2:30 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 Body Mass Index 32.1 07/27/2007 2:30 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 documented in this encounter Progress Notes Vanessa Mills - 07/27/2007 3:04 PM CST Valeri E Crystalalireza presents for pre-op exam. Initial BP 140/80 Pulse 68 Temp (Src) 98.3 (Oral) Resp 16 Ht 5' 4 (1.63m) Wt 187 lbs (84.8kg) LMP Hysterectomy Body mass index is 32.08 kg/(m^2).. BP completed using cuff size: large. PRE-OP EVALUATION: Today's date: 07/27/2007 Valeri Hortonroycealireza (: 1955) presents for pre-operative evaluation as requested by Dr. Ram. She requires evaluation and anesthesia clearance prior to undergoing surgery/procedure for treatment of atypical nodule of thyroid . Proposed procedure: Thyroidectomy Date of Surgery/ Procedure: 05/31/07 Time of Surgery/ Procedure: 829 Hospital/Surgical Facility: [facility] Fax number for surgical facility: NA Primary Physician: Dr. Vanessa Mills Type of Anesthesia Anticipated: General History of anesthesia complications: YES: Personal HX Nausea with last surgery. History of abnormal bleeding: YES: Personal HX -After Surgery in February 2007,pt was given Heparin which induced abnormal bleeding History of blood transfusions: NO Patient has a Health Care Directive or Living Will: NO 1- NO - Do you ever have [...] family have previous history of blood clots? 11-YES - Do you or does anyone in your family have serious bleeding problem such as prolonged bleeding following surgeries or cuts? Please see above 12-YES - Have you ever had problems with anemia or been told to take iron pills? After surgery 02/2007. 13-NO - Have you had any abnormal blood loss such as black, tarry or bloody stools, or abnormal vaginal bleeding? 14-NO - Have you or any of your relatives ever had problems with anesthesia? 15-NO - Do you snore or stop breathing at night? 16-NO - Do you have any prosthetic heart valves or joints? 17-NO - Is there any chance that you may be ?-Hysterectomy HPI: PRE OP Here for preop evaluation of thyroid mass, had fine needle aspiration with question of follciular vspapillary carcinoma. Going for total thyroidectomy. Positive hx for hypothyroidism. No family hx of thyroid dx or cancer. She is feeling more fatigued. Feeling anxious about the sugery. BREAST CANCER Recent masectomies and reconstructive surgery for breast cancer. Recovering well. Patient Active Problem List Diagnoses Date Noted ??? 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 OBESITY NOS [278.00] 04/11/2006 ??? HYPOTHYROIDISM NOS [244.9] 04/10/2006 ??? iamLUMBAGO [724.2] 11/26/2005 ??? PURE HYPERCHOLESTEROLEM [272.0] GOAL IS LDL<130 ??? HEADACHE [784.0] 09/27/2004 ??? OSTEOARTHROS NOS-OTHER SITE [715.98] 09/27/2004 Hands, multiple joints, followed by Rheum ??? FEMALE STRESS INCONTINENCE [625.6] 09/27/2004 ??? MEDICAL HISTORY OF - [5896532] 09/27/2004 DEXA normal ??? MENOPAUSAL DISORDER NEC [627.8] 09/27/2004 On HRT x 9months, then DC Past Medical History Diagnosis Date ??? HEADACHE ??? TM JOINT DISORDER, UNSPEC ??? OSTEOARTHROS NOS-OTHER SITE 2003 Hands, multiple joints, followed by Rheum ??? FEMALE STRESS INCONTINENCE ??? MEDICAL HISTORY OF - 2003 DEXA normal ??? MENOPAUSAL DISORDER NEC 2002 On HRT x 9months, then DC ??? PERS HX COLONIC POLYPS 04/2005 adenoma ??? PURE HYPERCHOLESTEROLEM 2006 GOAL IS LDL<130 ??? 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 Appendectomy ??? Surgical history of - CARPEL TUNNEL ??? Nonspecific procedure RIGHT 2ND TOE SURGERY ??? Vag hyst,rmv tube/ovary 08/2002 Fibroids, on HRT x 10 months, then D/C ??? Colonoscopy 04/2005 adenoma, repeat 5 yrs ??? Mastectomy, simple, complete 03/2007 right Current outpatient prescriptions Medication Sig ??? LEVOTHYROXINE SODIUM 100 MCG OR TABS 1 TABLET DAILY, except take 2 tablets on Sundays ??? PIROXICAM 20 MG OR CAPS 1 CAPSULE DAILY ??? ORACEA 40 MG OR CPDR 1 CAPSULE EVERY MORNING BEFORE BREAKFAST ??? UNKNOWN MED DOSAGE Vitamin D-1 tablet daily ??? MULTI-VITAMIN OR TABS 1 tablet daily ??? PROZAC 20 MG OR CAPS 1 CAP PO QD (Once per day) in AM ??? UNKNOWN MED DOSAGE Glucosamine Chondroitin 3tabs po qd ??? UNKNOWN MED DOSAGE Calcium 1 tablet po qd ??? VITAMIN C 500 MG OR TABS 1 tablet po qd ??? HYDROCHLOROTHIAZIDE 25 MG OR TABS ONE TABLET DAILY IN THE MORNING ??? ADVIL 200 MG OR TABS 3 TABLETS NEEDED OTC products: None, except as noted above Allergies Allergen Reactions ??? Meperidine nausea ??? Morphine Nausea and dizziness Latex Allergy: NO History Substance Use Topics ??? Tobacco Use: Never ??? Alcohol Use: Yes 1 glass of wine per week History Drug Use No REVIEW OF SYSTEMS: C: NEGATIVE for fever,no recent illnesses E/M: NEGATIVE for ear, mouth and throat problems R: NEGATIVE for significant cough or SOB CV: NEGATIVE for chest pain, palpitations or peripheral edema GI: no constipation, diarrhea, or vomiting; : no UTI symptoms, postmenopausal Endocrine. On thyroid medication, fatigued, no palpable neck masses EXAM: BP 140/80 Pulse 68 Temp (Src) 98.3 (Oral) Resp 16 Ht 5' 4 (1.63m) Wt 187 lbs (84.8kg) LMP Hysterectomy GENERAL APPEARANCE: healthy, alert and no distress HENT: ear canals and TM's normal and nose and mouth without ulcers or lesions Neck: no palpable masses, thyroid compact, nontender RESP: lungs clear to auscultation - no rales, rhonchi or wheezes Breast: expanders in bilaterally, well healed incisions. CV: regular rates and rhythm, normal S1 S2, no S3 or S4 and no murmur, click or rub ABDOMEN: soft, nontender, no HSM or masses and bowel sounds normal NEURO: Normal strength and tone, sensory exam grossly normal, mentation intact and speech normal DIAGNOSTICS: EKG: appears normal, sinus bradycardia, rate 58,normal axis, normal intervals, no acute ST/T changesc/w ischemia, no LVH by voltage criteria Labs: TSH Date Value Range Status 07/27/2007 5.83* 0.4-5.0 (mU/L) Final ] WBC 5.2 07/27/2007 RBC 4.67 07/27/2007 HGB 13.6 07/27/2007 HCT 40.5 07/27/2007 No components found with this base name: mct MCV 87 07/27/2007 MCH 29.1 07/27/2007 MCHC 33.6 07/27/2007 RDW 15.5 07/27/2007 PLT 336 07/27/2007 Na143, K 5.2 Cl 102 C02 31, Glu 94 BUN 24 Cr 1 IMPRESSION: V72.83 PREOP EXAM OTHER SPECIFIED (primary encounter diagnosis) Note: thyroid mass, concerning for cancer, undergoing Total thyroidectomy Plan: A.M.A. BASIC METABOLIC PANEL, ELECTROCARDIOGRAM, COMP W/READ, ALPRAZOLAM 0.25 MG OR TABS, CBC WITH PLATELETS No contraindication to surgery. Xanax prescribed for nerves. Follow up with septic tank installer and surgeon regarding definitive tx. 244.9 HYPOTHYROIDISM NOS Note: fatigue, on thyroid hormone Plan: TSH W/FREE T4 REFLEX Check TSH prior to surgery ADDENDUM TSH slightly elevated, no change in dose, septic tank installer to adjust dose after surgery 174.9 DUCTAL CARCINOMA IN SITU Note: recovering from bilateral mastectomies, no probable relationship between the 2 cancers, discussed with pt. Plan: follow up with surgeon regarding reconstructive surgery ELEVATED BLOOD PRESSURE Note: pressure elevated today, pt stressed Plan: recheck after surgery, if consistently elevated, use HCTZ. For above listed surgery and anesthesia: Patient is at LOW risk for surgery/procedure and perioperative/procedure complications. RECOMMENDATIONS: Approval given to proceed with proposed procedure, without further diagnostic evaluation. Signed Electronically by: Vanessa Mills MD Internal Medicine/Pediatrics Copy of this evaluation report is provided to requesting physician. SALES MANAGER Carson De Luna Maryellen - 07/27/2007 2:19 PM CST PRE-OP EVALUATION: Today's date: 07/27/2007 Valeri Keenan (: 1955) presents for pre-operative evaluation as requested by Dr. Zepeda & Dr. Isabel. She requires evaluation and anesthesia clearance prior to undergoing surgery/procedure for treatment of abnormal thyroid aspirate . Proposed procedure: Subtotal thyroidectomy by Dr. Ram Date of Surgery/ Procedure: 07/31/07 Time of Surgery/ Procedure: 829 Hospital/Surgical Facility: [facility] Primary Physician: Dr. Mills Type of Anesthesia Anticipated: General History of anesthesia complications: Yes- Significant Nausea following mastectomy History of abnormal bleeding: YES- Developed hematoma R breast postop mastectomy while on Heparin History of blood transfusions: NO ient has a Health Care Directive or Living Will: NO 1- NO - Do you ever have [...] as prolonged bleeding following surgeries or cuts? 12-Yes- Have you ever had problems with anemia or been told to take iron pills? 13-NO - Have you had any abnormal blood loss such as black, tarry or bloody stools, or abnormal vaginal bleeding? 14-NO - Have you or any of your relatives ever had problems with anesthesia? 15-NO - Do you snore or stop breathing at night? 16-NO - Do you have any prosthetic heart valves or joints? 17-NO - Is there any chance that you may be ? HPI: PRE OP Had right sided mastectomy in February,, for ductal carcinoma in situ, neg sentinal node biopsy. Elective left sided mastectomy (prophylactic) with bilateral reconstruction by the plastic surgeon 05/24. MRI of left breast neg for worrisome findings. Neck ultrasound performed concerning for cancer. Sub sequent fine needle aspiration demonstrated concern for papillary vs follicular varient. HYPOTHYROIDISM NOS [244.9] Due for thyroid labs, has left sided fullness in neck, no previous ultrasound performed. ELEV BL PRES W/O HYPERTN [796.2] No hx of hypertension, pt has had stressfull week and believes this is contributing. Pt previously prescribed HCTZ- obtained multiple BPs at home within range- has not been taking antihypertensives. Family hx + for early heart disease. She denies chest pain at this time. Patient Active Problem List Diagnoses Date Noted ??? 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 OBESITY NOS [278.00] 04/11/2006 ??? HYPOTHYROIDISM NOS [244.9] 04/10/2006 ??? iamLUMBAGO [724.2] 11/26/2005 ??? PURE HYPERCHOLESTEROLEM [272.0] GOAL IS LDL<130 ??? HEADACHE [784.0] 09/27/2004 ??? OSTEOARTHROS NOS-OTHER SITE [715.98] 09/27/2004 Hands, multiple joints, followed by Rheum ??? FEMALE STRESS INCONTINENCE [625.6] 09/27/2004 ??? MEDICAL HISTORY OF - [6167306] 09/27/2004 DEXA normal ??? MENOPAUSAL DISORDER NEC [627.8] 09/27/2004 On HRT x 9months, then DC Past Medical History Diagnosis Date ??? HEADACHE ??? TM JOINT DISORDER, UNSPEC ??? OSTEOARTHROS NOS-OTHER SITE 2003 Hands, multiple joints, followed by Rheum ??? FEMALE STRESS INCONTINENCE ??? MEDICAL HISTORY OF - 2002 DEXA normal ??? MENOPAUSAL DISORDER NEC 2002 On HRT x 9months, then DC ??? PERS HX COLONIC POLYPS 04/2005 adenoma ??? PURE HYPERCHOLESTEROLEM 2006 GOAL IS LDL<130 ??? 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 Appendectomy ??? Surgical history of - CARPEL TUNNEL ??? Nonspecific procedure RIGHT 2ND TOE SURGERY ??? Vag hyst,rmv tube/ovary 08/2002 Fibroids, on HRT x 10 months, then D/C ??? Colonoscopy 04/2005 adenoma, repeat 5 yrs ??? Mastectomy, simple, complete 03/2007 right Current outpatient prescriptions Medication Sig ??? LEVOTHYROXINE SODIUM 100 MCG OR TABS 1 TABLET DAILY, except take 2 tablets on Sundays ??? PIROXICAM 20 MG OR CAPS 1 CAPSULE DAILY ??? ORACEA 40 MG OR CPDR 1 CAPSULE EVERY MORNING BEFORE BREAKFAST ??? UNKNOWN MED DOSAGE Vitamin D-1 tablet daily ??? MULTI-VITAMIN OR TABS 1 tablet daily ??? PROZAC 20 MG OR CAPS 1 CAP PO QD (Once per day) in AM ??? UNKNOWN MED DOSAGE Glucosamine Chondroitin 3tabs po qd ??? UNKNOWN MED DOSAGE Calcium 1 tablet po qd ??? VITAMIN C 500 MG OR TABS 1 tablet po qd OTC products: None, except as noted above Allergies Allergen Reactions ??? Meperidine nausea Latex Allergy: NO History Substance Use Topics ??? Tobacco Use: Never ??? Alcohol Use: Yes 1 glass of wine per week History Drug Use No REVIEW OF SYSTEMS: C: NEGATIVE for fever, chills E/M: NEGATIVE for ear, mouth and throat problems. No previous dental work. R: NEGATIVE for significant cough or SOB CV: NEGATIVE for chest pain, palpitations or peripheral edema GI: no c/d : no uti symptoms, hysterectomy Endocrine: thyroid dx, left sided thyroid fullness EXAM: BP 142/92 Pulse 80 Ht 5' 4.5 (1.64m) Wt 180 lbs (81.6kg) LMP Hysterectomy GENERAL APPEARANCE: healthy, alert and no distress HENT: ear canals and TM's normal and nose and mouth without ulcers or lesions Neck: palpable fullness at left side of thyroid, nontender RESP: lungs clear to auscultation - no rales, rhonchi or wheezes CV: regular rates and rhythm, normal S1 S2, no S3 or S4 and no murmur, click or rub ABDOMEN: soft, nontender, no HSM or masses and bowel sounds normal NEURO: Normal strength and tone, sensory exam grossly normal, mentation intact and speech normal Ext: no edema DIAGNOSTICS: EKG: appears normal, NSR, normal axis, normal intervals, no acute ST/T changes c/w ischemia, no LVH by voltage criteria, unchanged from previous tracings Labs: pending IMPRESSION: V72.83 PREOP EXAM OTHER SPECIFIED (primary encounter diagnosis) Note: Subtotal Thyroidectomy for thyroid mass concerning for cancer Plan: CBC WITH PLATELETS, A.M.A. BASIC METABOLIC PANEL No contraindication to surgery 796.2 ELEV BL PRES W/O HYPERTN Note: no hx of previous hypertension, suspect situational stress. Pt has been checking BP regularly at home- SBP range 101-136. Plan: monitor BP at hosptial. If consistently elevated, sbp > 140, dbp > 85, would start HCTZ Pt instructed to avoid NSAIDs and ASA until after surgery. For above listed surgery and anesthesia: Patient is at LOW risk for surgery/procedure and perioperative/procedure complications. RECOMMENDATIONS: Approval given to proceed with proposed procedure, without further diagnostic evaluation. Electronically signed by: Kendall De Luna MD. Pt seen and discussed with staff. Kendall De Luna MD, Resident SALES MANAGER documented in this encounter Plan of Treatment Not on filedocumented as of this encounter Procedures Procedure Name Priority Date/Time Associated Diagnosis Comme nts CL AFF CBC WITH Routine 07/27/2007 3:53 PM Preop Exam Other Re sults for this PLATELETS GOLF SALES MANAGER Specified procedure are i n the results section. HCL BASIC Routine 07/27/2007 3:53 PM Preop Exam Other Resul ts for this METABOLIC PANEL GOLF SALES MANAGER Specified procedure ar e in the results section. HCL TSH W/FREE T4 Routine 07/27/2007 3:53 PM Hypothyroidism No s Results for this REFLEX GOLF SALES MANAGER procedure are i n the results section. HCL T4 FREE Routine 07/27/2007 3:53 PM Hypothyroidism Nos Res ults for this GOLF SALES MANAGER procedure are i n the results section. ZZC Routine 07/27/2007 Preop Exam Other ELECTROCARDIOGRAM, Specified COMP W/READ documented in this encounter Results T4, FREE, SERUM (07/27/2007 3:53 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) P athologist Signature T4 Free 0.85 0.70 - 1.85 [facility] ng/dL CLINIC LAB Specimen Anatomical Collection Method Collection Time Receive d Time (Source) Location / / Volume Laterality 07/27/2007 3:53 PM 7 3:56 GOLF SALES MANAGER 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 Vanessa Mills MD LABORATORY Performing Organization Address City/State/ZIP Code Phon e Number [facility] [address] [place] [address] [facility] (ABNORMAL) CBC WITH PLATELETS (07/27/2007 3:53 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) Analysis Performed At Patho logist Time Signature WBC 5.2 4.0 - 11.0 [place] 10e9/L [facility] RBC Count 4.67 3.8 - 5.2 [place] 10e12/L [facility] Hemoglobin 13.6 11.7 - [facility] 15.7 g/dL [facility] Hematocrit 40.5 35.0 - [facility] 47.0 % [facility] MCV 87 78 - 100 [place] fl [facility] MCH 29.1 26.5 - [facility] 33.0 pg [facility] MCHC 33.6 31.5 - [place] 36.5 g/dL [facility] RDW 15.5 (H) 10.0 - [place] 15.0 % [facility] Platelet Count 336 150 - 450 [place] 10e9/L [facility] Specimen Anatomical Collection Method Collection Time Receive d Time (Source) Location / / Volume Laterality 07/27/2007 3:53 PM 7 3:56 GOLF SALES MANAGER 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 Vanessa Mills MD LABORATORY Performing Organization Address City/State/ZIP Code Phon e Number [facility] [address] [place] [address] [facility] (ABNORMAL) TSH W/FREE T4 REFLEX (07/27/2007 3:53 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) athologist Signature TSH 5.83 (H) 0.4 - 5.0 [place] mU/L [facility] Specimen Anatomical Collection Method Collection Time Receive d Time (Source) Location / / Volume Laterality 07/27/2007 3:53 PM 7 3:56 GOLF SALES MANAGER 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 Vanessa Mills MD LABORATORY Performing Organization Address City/[facility]/ZIP Code Phon e Number [facility] [address] [place] [address] [facility] A.M.A. BASIC METABOLIC PANEL (07/27/2007 3:53 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) athologist Signature Sodium 143 133 - 144 [place] mmol/L CLINIC LAB Potassium 5.2 3.4 - 5.3 [place] mmol/L [facility] LAB Chloride 102 94 - 109 [place] [facility] mmol/L [facility] LAB Carbon Dioxide 31 20 - 32 [place] mmol/L [facility] LAB Anion Gap 10 6 - 17 [place] mmol/L [facility] LAB Glucose 94 60 - 99 [place] mg/dL CLINIC LAB Urea Nitrogen 24 7 - 30 [place] mg/dL [facility] Creatinine 1.00 0.60 - [place] 1.30 mg/dL CLINIC LAB GFR Estimate 62 >60 [place] mL/min/1.7 CLINIC LAB m2 GFR Estimate If 75 >60 [place] [facility] Black mL/min/1.7 CLINIC LAB m2 Calcium 10.3 8.5 - 10.4 [place] mg/dL CLINIC LAB Specimen Anatomical Collection Method Collection Time Receive d Time (Source) Location / / Volume Laterality 07/27/2007 3:53 PM 7 3:56 GOLF SALES MANAGER 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 Vanessa Mills MD LABORATORY Performing Organization Address City/State/ZIP Code Phon e Number [facility] [address] [place] [address] [facility] ELECTROCARDIOGRAM, COMP W/READ (07/27/2007) Narrative This result has an attachment that is no t available. Vanessa Mills MD EKG TECHNICAL documented in this encounter Visit Diagnoses Diagnosis Other specified pre-operative examinatio n - Primary Unspecified hypothyroidism DUCTAL CARCINOMA IN SITU Malignant neoplasm of breast (female), u nspecified site Elevated blood pressure reading without diagnosis of hypertension documented in this encounter Care Teams Licensed Psychologist Manager Relationship Specialty Start Date End Date Angeles Olsen MD PCP - General 02/26/02 08/28/10 documented as of this encounter
--- OUTSIDE RECORDS SUMMARY | 2022-04-16 19:40 | XMS_ITS | Encounter Summary ---
:1955 Author Organization [facility] Address [address] [place] [address] Care Team Providers Name Role Phone Angeles Olsen MD Primary Care Provider [phone] System, Provider Not In Primary Care Provider Unavailable Encounter Details Date Type Department Care Team Description 08/01/2007 Historic Results [facility] Pat Garcia MD [facility] [address] [facility] [address] 5 [address] [phone] Social History Tobacco Use Types Packs/Day Years Used Date Never Smoker Alcohol Use Standard Drinks/Week Comments Yes 0 (1 standard drink = 0.6 oz pure alcoho l) 1 glass of wine per week 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 Date Recorded Female 06/29/2019 1:44 PM PAIRER ODDS documented as of this encounter Plan of Treatment Not on filedocumented as of this encounter Procedures Procedure Name Priority Date/Time Associated Diagnosis Comme nts CALCIUM Timed 08/01/2007 2:15 PM Results f or this PAIRER ODDS procedure are i n the results section. BASIC METABOLIC Routine 08/01/2007 2:15 PM Result s for this PANEL PAIRER ODDS procedure are i n the results section. CALCIUM Routine 08/01/2007 6:39 AM Results f or this PAIRER ODDS procedure are i n the results section. documented in this encounter Results (ABNORMAL) Calcium (08/01/2007 2:15 PM PAIRER ODDS) P athologist Signature Calcium 8.3 (L) 8.5 - 10.4 MISYS mg/dL Comment: Charge credited Duplicate request Specimen Anatomical Collection Method Collection Time Receive d Time (Source) Location / / Volume Laterality 08/01/2007 2:15 PM 7 2:00 PAIRER ODDS PM PAIRER ODDS Lorena Garcia MD LAB - BLOOD ORDERABLES Performing Organization Address City/State/[facility] Phon e Number MISYS (ABNORMAL) Basic metabolic panel (08/01/2007 2:15 PM PAIRER ODDS) P athologist Signature Sodium 129 (L) 133 - 144 MISYS mmol/L Comment: Reviewed, acceptable Potassium 3.7 3.4 - 5.3 mmol/L MISYS Comment: Reviewed, acceptable Chloride 92 (L) 94 - 109 mmol/L MISYS Comment: Reviewed, acceptable Carbon Dioxide 24 20 - 32 mmol/L MISYS Glucose 143 (H) 60 - 99 mg/dL MISYS Urea Nitrogen 9 7 - 30 mg/dL MISYS Creatinine 0.67 0.60 - 1.30 mg/dL MISYS GFR Estimate >90 >60 mL/min/1.7m2 MISYS GFR Estimate If Black >90 >60 mL/min/1.7m2 M ISYS Calcium 8.3 (L) 8.5 - 10.4 mg/dL MISYS Anion Gap 12 6 - 17 mmol/L MISYS Specimen Anatomical Collection Method Collection Time Receive d Time (Source) Location / / Volume Laterality 08/01/2007 2:15 PM 7 4:21 PAIRER ODDS PM PAIRER ODDS Lorena Garcia MD LAB - BLOOD ORDERABLES Performing Organization Address City/[facility] Phon e Number MISYS (ABNORMAL) Calcium (08/01/2007 6:39 AM PAIRER ODDS) P athologist Signature Calcium 8.1 (L) 8.5 - 10.4 MISYS mg/dL Specimen Anatomical Collection Method Collection Time Receive d Time (Source) Location / / Volume Laterality 08/01/2007 6:39 AM 7 PAIRER ODDS 12:54 PM PAIRER ODDS Lorena Garcia MD LAB - BLOOD ORDERABLES Performing Organization Address City/State/[facility] Phon e Number MISYS documented in this encounter Visit Diagnoses Not on filedocumented in this encounter Care Teams Exhibit Artist Relationship Specialty Start Date End Date Angeles Olsen MD PCP - General 02/26/02 08/28/10 System, Provider Not In PCP - General 08/29/10 06/30/13 documented as of this encounter
--- OUTSIDE RECORDS SUMMARY | 2022-04-16 19:40 | XMS_ITS | Encounter Summary ---
:1955 Author Organization [place] Address [address] [place] [address]. [place] [address] Care Team Providers Name Role Phone Angeles Olsen MD Primary Care Provider [phone] Encounter Details Date Type Department Care Team Description 05/02/2008 Orders Only [facility] Eag an Vanessa Mills DIAGNOSIS NOT YET [address] [facility] MD Vanessa DEFINED (Primary Dx) [place] [id number] [facility] A [phone] [place] [address] Social History Tobacco Use Types Packs/Day Years Used Date Never Smoker Alcohol Use Standard Drinks/Week Comments Yes 0 (1 standard drink = 0.6 oz pure alcoho l) 1 glass of wine per week 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 Date Recorded 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 Vanessa Mills MD PROCEDURES documented in this encounter Visit Diagnoses Diagnosis DIAGNOSIS NOT YET DEFINED - Primary documented in this encounter Care Teams Leather Case Finisher Relationship Specialty Start Date End Date Angeles Olsen MD PCP - General 02/26/02 08/28/10 documented as of this encounter
--- OUTSIDE RECORDS SUMMARY | 2022-04-16 19:40 | XMS_ITS | Encounter Summary ---
:1955 Author Organization [facility] Address [address] [place] [address]. [place] [address] Care Team Providers Name Role Phone Angeles Olsen MD Primary Care Provider [phone] Reason for Referral - Closed Specialty Diagnoses / Procedures Referred By Contact Refer red To Contact Diagnoses Pain in joint, lower leg Vanessa Mills MD [address] [facility] [place], [place] [address] Referral ID Status Reason Start Date Expiration Date Visits Requ ested Visits Authorized [id number] Closed 01/18/2008 08/17/2011 1 1 Encounter Details Date Type Department Care Team Description 01/18/2008 Orders Only [facility] Eag an Vanessa Mills Pain in Joint, Lower [address] [facility] MD Vanessa Leg (Primary Dx) FABIO Marquez [phone] [place] [address] A [phone] [place] [address] Social History Tobacco Use Types Packs/Day Years Used Date Never Smoker Alcohol Use Standard Drinks/Week Comments Yes 0 (1 standard drink = 0.6 oz pure alcoho l) 1 glass of wine per week 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 Date Recorded 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
--- OUTSIDE RECORDS SUMMARY | 2022-04-16 19:40 | XMS_ITS | Encounter Summary ---
:1955 Author Organization [place] Address [address] [place] [address]. [place] [address] Care Team Providers Name Role Phone Angeles Olsen MD Primary Care Provider [phone] Reason for Visit Reason Onset Date Comments Depression 08/25/2007 Encounter Details Date Type Department Care Team Description 08/25/2007 Telephone [facility] Eag an Vanessa Mills, Depression [address] [facility] [place] [address] [place] [address] [place] [address] (Wo rk) Social History Tobacco Use Types Packs/Day Years Used Date Never Smoker Alcohol Use Standard Drinks/Week Comments Yes 0 (1 standard drink = 0.6 oz pure alcoho l) 1 glass of wine per week 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 Date Recorded 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 Mills would like her to be seen at clinic today. Appt scheduled for 11:30 thisam. Pt notified. Quita Álvarez RN EOLOGY FACULTY MEMBER Telephone Encounter - Vanessa Mills - 08/25/2007 10:04 AM CST I will see her today. Ok to overbook. Vanessa Mills MD Internal Medicine/Pediatrics EOLOGY FACULTY MEMBER Telephone Encounter - Gina Marinelli - 08/25/2007 9:08 AM CST Pt calling to report she has been escalating depression since her last surgery (thyroidectomy). It seems to hit her the 3rd week after her surgeries and she is now in that 3 rd week. She was given xanax 3 weeks ago and has not taken it since. Not feeling as much anxiety, but more depression. Having some suicidal thoughts, but no plan. Is currently on 20 mg of fluoxetine qd. Also said her TSH that she had done last Friday was high-36? She was just called with this result (Dr. Newman's office) and they will be increasing her levothyroxin. She will seed cone picker this RX today. Sheknows this can also affect depression. Pt would like to personally talk to Dr. Mills. Gina Marinelli RN EOLOGY FACULTY MEMBER documented in this encounter Plan of Treatment Not on filedocumented as of this encounter Visit Diagnoses Not on filedocumented in this encounter Care Teams Strand Buncher Fine Wire Relationship Specialty Start Date End Date Angeles Olsen MD PCP - General 02/26/02 08/28/10 documented as of this encounter
--- OUTSIDE RECORDS SUMMARY | 2022-04-16 19:40 | XMS_ITS | Encounter Summary ---
:1955 Author Organization [place] Address [address] [place] [address] Care Team Providers Name Role Phone Angeles Olsen MD Primary Care Provider System, Provider Not In Primary Care Provider Unavailable Encounter Details Date Type Department Care Team Description 07/31/2007 Historic Results [facility] Pat Hanna MD [facility] [address] [facility] [address] [address] [phone] Social History Tobacco Use Types Packs/Day Years Used Date Never Smoker Alcohol Use Standard Drinks/Week Comments Yes 0 (1 standard drink = 0.6 oz pure alcoho l) 1 glass of wine per week 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 Date Recorded 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 HISTOPATHOLOGY Routine 07/31/2007 12:00 AM Result s for this RANGE EXAMINER procedure are i n the results section . documented in this encounter Results (ABNORMAL) Calcium (07/31/2007 9:15 PM RANGE EXAMINER) athologist Signature Calcium 8.3 (L) 8.5 - 10.4 MISYS mg/dL Specimen Anatomical Collection Method Collection Time Receive d Time (Source) Location / / Volume Laterality 07/31/2007 9:15 PM 7 9:00 RANGE EXAMINER PM RANGE EXAMINER Lorena Hanna MD LAB - BLOOD ORDERABLES Performing Organization Address City/State/ZIP Code [place] Histopathology (07/31/2007 12:00 AM RANGE EXAMINER) Component Value Ref Test Analysis Performed At [facility] gist Range Method Time Signature Copath CASE: [id number] ^ COPATH Report Patient Name: VALERI ROJAS MR#: [id number] Specimen #: [id number] Collected: 07/31/2007 Received: 07/31/2007 Reported: 08/03/2007 16:52 Ordering Phy(s): LORENA HANNA SPECIMEN(S): Thyroid, lobectomy FINAL DIAGNOSIS: Thyroid gland, total thyroidectomy - ? 1. ??Cihquita's thyroiditis. ? 2. ??Nodular hyperplasia. ? 3. ??Reactive cellular changes. ? 4. ??No evidence of malignancy. COMMENT: Intradepartmental consultation was obtained. Electronically signed out by: Americo Spears M.D. CLINICAL HISTORY: Goiter. GROSS: The specimen, labeled total thyroidectomy, consists of a t otal thyroidectomy with right and left lobes and isthmus that yeison ghs 13 gm. Theright lobe measures 4.2 cm in height x about 3.2 x 1.1 cm in width, and the left lobe measures about 3.8 cm in height x 2.6 x 1. 0 cm. ??The isthmus is fairly wide and measures about 1.6 cm in width an d 1.6 cm in height, and is about 0.7 cm in thickness, and there is a sli ghtly pale nodule encompassing most of the left two-thirds of the isthm us. ??This is area if about 1.5 cm in height x 1.0 cm in width, and about 0.7 cm in thickness. ??The deep posterior surfaces are inked with jocelin k ink and the anterior rounded surfaces are inked with blue ink. ??There i s a suture stated to aleyda the right superior pole. ??The isthmus is exc ised first on either side of the nodule and serially sectioned from the le ft toward the right ??side. ??These are placed in cassettes 1 and 2. ??The right lobe is sectioned from inferior to superior dimension and within the inferior outer part of the lobe, there is a distinct nodule, firm and solid, and slightly pale ling color, and it measures about 0.9 cm in gre atest dimension. ??The right lobe sections are in cassettes 3 thro ugh 7. Audio Tape Librarian sections of the left lobe are in cassettes 8 through 10. JKW/sg MICROSCOPIC: Multiple sections of the total thyroidectomy specimen show c hanges diagnostic ofHashimoto's thyroiditis. ??There is interstitia l chronic inflammation, germinal centers and Hurthle cell change. ??Th roughout the gland, reactive nuclear changes are seen. ??They are charact erized by nuclear enlargement and small nuclei. ??There are no changes diagnostic of papillary carcinoma. ??These reactive nuclear changes are probably secondary to the inflammatory process and/or radioactive iod ine. ??There is no evidence of malignancy. ??The case was reviewed in intradepartmental consultation. MGP/sg 08-03-07 TESTING LAB LOCATION: [address] ??[id number] COLLECTION SITE: Client: [facility] Location: MS2 (R) Specimen (Source) Anatomical Collection Method Collection Time Re ceived Time Location / / Volume Laterality 07/31/2007 08/03/2007 4:52 PM RANGE EXAMINER Lorena Hanna MD LAB - COPATH SPECIAL DIAG OR DERABLES Performing Organization Address City/State/ZIP Code Phon e Number COPATH documented in this encounter Visit Diagnoses Not on filedocumented in this encounter Care Teams Engineer Rf Deployment Relationship Specialty Start Date End Date Angeles Olsen MD PCP - General 02/26/02 08/28/10 System, Provider Not In PCP - General 08/29/10 06/30/13 documented as of this encounter
--- OUTSIDE RECORDS SUMMARY | 2022-04-16 19:40 | XMS_ITS | Encounter Summary ---
:1955 Author Organization [facility] Address [address] [place] [address]. [place] [address] Care Team Providers Name Role Phone Angeles Olsen MD Primary Care Provider [phone] System, Provider Not In Primary Care Provider Unavailable Encounter Details Date Type Department Care Team Description 09/29/2007 Historic Results INTERFACED REPORT Radha Gama MD [facility] [address] [facility] [address] [place], [place] [id number] (Wo rk) Social History Tobacco Use Types Packs/Day Years Used Date Never Smoker Alcohol Use Standard Drinks/Week Comments Yes 0 (1 standard drink = 0.6 oz pure alcoho l) 1 glass of wine per week 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 Date Recorded 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 documented in this encounter Results Histopathology (09/29/2007 12:00 AM CHOIR TEACHER) Component Value Ref Test Analysis Performed At [facility] Range Method Time Signature Copath Report CASE: [id number] ^ COPATH Patient Name: VALERI ROJAS MR#: [id number] Specimen #: [id number] Collected: 09/29/2007 Received: 09/29/2007 Reported: 09/30/2007 15:32 Ordering Phy(s): KAYLAH GAMA SPECIMEN(S): Scar, right mastectomy FINAL DIAGNOSIS: Mastectomy scar, right, scar revision - Scar with patchy mil d chronic inflammation and foreign body reaction. ??No evidence of mal ignancy. Electronically signed out by: Carson Kapoor M.D. CLINICAL HISTORY: Breast cancer. GROSS: The specimen, labeled right mastectomy scar, consists of a strip of pink-ling skin measuring 16 cm in length and ranging from 1.3 cm in width to 0.4 cm in width. ??There is underlying soft yellow to gre y fibrous scar-like tissue beneath the skin which measures from 0.4 to 1.5 cm in depth. ??A separate fragment of soft yellow adipose tissue m easuring 2.5 x 1.5 x 0.9 cm is present. ??No suspicious skin or other les ions are seen on sectioning. ??Multiple sales representative marine supplies sections submitted in three cassettes. ??SHERLYN/kirill MICROSCOPIC: Microscopic evaluation performed. SHERLYN/kirill 09-30-07 TESTING LAB LOCATION: [address] ??[id number] COLLECTION SITE: Client: [facility] Location: SDS (R) Specimen (Source) Anatomical Collection Method Collection Time Re ceived Time Location / / Volume Laterality 09/29/2007 09/30/2007 3:32 PM CHOIR TEACHER Kaylah Gama MD LAB - COPATH SPECIAL DIAG OR DERABLES Performing Organization Address City/State/ZIP Code Phon e Number COPATH documented in this encounter Visit Diagnoses Not on filedocumented in this encounter Care Teams Cashier Office Relationship Specialty Start Date End Date Angeles Olsen MD PCP - General 02/26/02 08/28/10 System, Provider Not In PCP - General 08/29/10 06/30/13 documented as of this encounter
--- OUTSIDE RECORDS SUMMARY | 2022-04-16 19:40 | XMS_ITS | Encounter Summary ---
:1955 Author Organization [facility] Address [address] [place] [address]. [place] [address] Care Team Providers Name Role Phone Angeles Olsen MD Primary Care Provider [phone] Reason for Visit Reason Comments Pre-Op Exam Suture Removal [address] from anshul kristie of cyst on her back one week ago Encounter Details Date Type Department Care Team Description 05/31/2008 Office Visit [facility] Vanessa Mills Pre-Opera tive Examination (Primary Dx); Theresa Mendez MD HYPOTHYROIDISM NOS; [address] SHAKIRA PURE HYPERCHOLESTEROLEM; FABIO Marquez [address] A Unspecified Essential Hypertension [phone] [place] [address] Social History Tobacco Use Types Packs/Day Years Used Date Never Smoker Alcohol Use Standard Drinks/Week Comments Yes 0 (1 standard drink = 0.6 oz pure alcoho l) 1 glass of wine per week 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 Date Recorded Female 06/29/2019 1:44 PM [employer] documented as of this encounter Last Filed Vital Signs Vital Sign Reading Time Taken Comments Blood Pressure 124/72 05/31/2008 9:21 AM CDT Pulse 56 05/31/2008 9:21 AM CDT Temperature 36.7 ??C (98.1 ??F) 05/31/2008 9:21 AM CDT Respiratory Rate 16 05/31/2008 9:21 AM CDT Oxygen Saturation - - Inhaled Oxygen Concentration - - Weight 84.1 kg (185 lb 8 oz) 05/31/2008 9:21 AM CDT Height 163.8 cm (5' 4.5) 05/31/2008 9:21 AM CDT Body Mass Index 31.35 05/31/2008 9:21 AM CDT documented in this encounter Progress Notes Vanessa Mills - 05/31/2008 9:33 AM CDT PRE-OP EVALUATION: Today's date: 05/31/2008 Valeri Keenan (: 1955) presents for pre-operative evaluation as requested by Dr. Yo Huerta. She requires evaluation and anesthesia clearance prior to undergoing surgery/procedure for treatment of upper extremity discomfort . Proposed procedure: Revision of bilateral breast reconstruction Date of Surgery/ Procedure: 06/07/08 Time of Surgery/ Procedure: 0845 Hospital/Surgical Facility: [facility] Fax number for surgical facility: [phone] Phone #[phone] Primary Physician: Dr. Vanessa Mills Type of Anesthesia Anticipated: General History of anesthesia complications: YES: Personal HX Nausea History of abnormal bleeding: YES: Personal HX Pt was given Heparin after surgery in February 2007, and she developed bleeding from surgical site History of blood transfusions: NO Patient has [...] as prolonged bleeding following surgeries or cuts? 12-YES - Have you ever had problems with anemia or been told to take iron pills? In February 2007 after being given Heparin post-op and she developed bleeding at surgical site. 13-NO - Have you had any abnormal blood loss such as black, tarry or bloody stools, or abnormal vaginal bleeding? 14-YES - Have you or any of your relatives ever had problems with anesthesia? Pt becomes nauseous 15-NO - Do you snore or stop breathing at night? 16-NO - Do you have any prosthetic heart valves or joints? 17-NO - Is there any chance that you may be ?-Hysterectomy HPI: Valeri Keenan is a 53 year old female presents for pre-operative evaluation as requested by Dr. Huerta. She requires evaluation and anesthesia clearance prior to undergoing surgery/procedure for revision of previous breast reconstruction and therefore evaluation of her chronic medical issues including hypothyroidism. Proposed procedure: revision of previous bilateral breast reconstruction. HYPERTENSION - Patient has a hx of HTN . She currently denieschest pain, palpitations, dyspnea, orthopnea, PND or peripheral edema. Blood pressure readings have been in normal range. Current medicationregimen is as listed below. Patient denies any side effects of medication. . HYPOTHYROIDISM - Patient has a Hypothyroidism. Patient has been doing well, noting no tremor, insomnia, hair loss or changes in skin texture. Last TSH value of TSH Date Value Range Status 11/24/07 4.24 0.4-5.0 (mU/L) Final ] Continues to take medications as directed, without adverse reactions or side effects. She is followed by an debug technician. . Patient Active Problem List Diagnoses Date Noted [...] [625.6] 09/27/2004 ??? MEDICAL HISTORY OF - [9575032] 09/27/2004 DEXA normal ??? 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 Pure Hypercholesterolemia 2005 GOAL IS LDL<130 ??? DUCTAL CARCINOMA [...] prophylactic Current outpatient prescriptions Medication Sig ??? HYDROCHLOROTHIAZIDE 25 MG OR TABS ONE TABLET DAILY IN THE MORNING ??? WELLBUTRIN XL# 150 MG OR TB24 ONE TABLET DAILY (MARILYN) ??? LEVOTHYROXINE SODIUM 150 MCG OR TABS 1 TABLET DAILY ??? GLYCOLAX OR POWD 1 capfull into 8 oz liquid daily prn ??? VITAMIN D 1000 UNIT OR TABS 1 TABLET DAILY-HELD ??? CALCIUM 600 + D 600-200 MG-UNIT OR TABS 1 tablet daily ??? UNKNOWN MED DOSAGE Glucosamine Chondroitin 1500/1200 2 tabs po qd_HELD ??? FLUOXETINE HCL 20 MG OR TABS ONE DAILY IN THE MORNING ??? PIROXICAM 20 MG OR CAPS 1 CAPSULE DAILY-HELD ??? MULTI-VITAMIN OR TABS 1 tablet daily--HELD ??? VITAMIN C 500 MG OR TABS 1 tablet po qd--HELD OTC products: None, except as noted above [...] pain, palpitations or peripheral edema GI: no n/v/d : No UTI symptoms EXAM: BP 124/72 Pulse 56 Temp (Src) 98.1 ??F (36.7 ??C) (Oral) Resp 16 Ht 5' 4.5 (1.638 m) Wt 185 lb 8 oz (84.142 kg) LMP Hysterectomy GENERAL APPEARANCE: healthy, alert [...] grossly normal, mentation intact and speech normal EXT: no edema DIAGNOSTICS: EKG: appears normal, NSR rate 54, normal axis, normal intervals, no acute ST/T changes c/w ischemia,no LVH by voltage criteria. Date 09/24/07 Labs: CBC and metabolic panel pending IMPRESSION: V72.84G Pre-Operative Examination (primary encounter diagnosis) Comment: breast reconstruction surgery, revision Plan: A.M.A. COMPREHENSIVE MET.PANEL, CBC WITH PLATELETS No contraindication to surgery, hold all herbals and NSAIDs, Tylenol is OK. 244.9 HYPOTHYROIDISM NOS Comment: stable, on replacement Plan: no change in dose 272.0 PURE HYPERCHOLESTEROLEM Comment: fasting today Plan: A.M.A. LIPID PANEL Unspecified Essential Hypertension [401.9] Note: good control of BP Plan: check electrolytes, continue HCTZ For above listed surgery and anesthesia: Patient is at LOW risk for surgery/procedure and perioperative/procedure complications. RECOMMENDATIONS: Approval given to proceed with proposed procedure, without further diagnostic evaluation. Signed Electronically by: Vanessa Mills MD Internal Medicine/Pediatrics Copy of this evaluation report is provided to requesting physician. Addendum 3 sutures removed from upper left back, placed by kiln maintenance in [place] one week ago for removalof cyst, incision s drainage, skin edges well approximated. documented in this encounter Nursing Notes 05/31/2008 9:00 AM CDT >> GARDENIA Goldman May 31, 2008 9:35 AM Valeri Hortonroycealireza presents for pre-op exam. Initial BP 124/72 Pulse 56 Temp (Src) 98.1 ??F (36.7 ??C) (Oral) Resp 16 Ht 5' 4.5 (1.638 m) Wt 185 lb 8 oz (84.142 kg) LMP Hysterectomy Body mass index is 31.35 kg/(m^2).. BP completed using cuff size: regular. Quita Álvarez RN documented in this encounter Plan of Treatment Not on filedocumented as of this encounter Procedures Procedure Name Priority Date/Time Associated Diagnosis Comme nts CL AFF CBC WITH Routine 05/31/2008 10:11 Pre-Operative Examina tion Results for PLATELETS AM CDT this procedure are in the results section. HCL COMPREHENSIVE Routine 05/31/2008 10:11 Pre-Operative Exami nation Results for METABOLIC PANEL AM CDT this procedu re are in the results section. CL AFF A.M.A. LIPID Routine 05/31/2008 10:11 PURE HYPERCHOLEST EROLEM Results for PANEL AM CDT this procedure are in the results section. documented in this encounter Results (ABNORMAL) A.M.A. LIPID PANEL (05/31/2008 10:11 AM CDT) athologist Signature Cholesterol 223 (H) 0 - 200 [facility] mg/dL [facility] Comment: LDL Cholesterol is the primary guide to therapy: LDL-cholesterol goal in high risk patients is <100 mg/dL and in very high risk patients is <70 mg/dL. The NCEP recommends further evaluation of: patients with cholesterol <200 mg/dL if additional risk factors are present, cholesterol >240 mg/dL, triglycerides >150 mg/dL, or HDL <40 mg/dL. Triglycerides 156 (H) 0 - 150 mg/dL [facility] HDL Cholesterol 55 50 - 110 mg/dL [facility] LDL Cholesterol Calculated 137 (H) 0 - 129 mg/dL [facility] Comment: LDL Cholesterol is the primary guide to therapy: LDL-cholesterol goal in high risk patients is <100 mg/dL and in very high risk patients is <70 mg/dL. VLDL-Cholesterol 31 (H) 0 - 30 mg/dL [facility] Cholesterol/HDL Ratio 4.0 0.0 - 5.0 [facility] Specimen Anatomical Collection Method Collection Time Receive d Time (Source) Location / / Volume Laterality 05/31/2008 10:11 05/31/2008 AM CDT 10:14 AM CDT Vanessa Mills MD LABORATORY Performing Organization Address City/[facility]/ZIP Code Phon e Number [address] [address] [phone] [facility] CBC WITH PLATELETS (05/31/2008 10:11 AM CDT) P athologist Signature WBC 5.2 4.0 - 11.0 [facility] 10e9/L [facility] RBC Count 5.01 3.8 - 5.2 [facility] 10e12/L [facility] Hemoglobin 14.5 11.7 - [facility] 15.7 g/dL [facility] Hematocrit 43.7 35.0 - [facility] 47.0 % [facility] MCV 87 78 - 100 [facility] MCH 28.9 26.5 - [facility] 33.0 pg [facility] MCHC 33.2 31.5 - [facility] 36.5 g/dL [facility] RDW 13.6 10.0 - [facility] 15.0 % [facility] Platelet Count 314 150 - 450 [facility] 10e9/L [facility] Specimen Anatomical Collection Method Collection Time Receive d Time (Source) Location / / Volume Laterality 05/31/2008 10:11 05/31/2008 AM CDT 10:14 AM CDT Vanessa Mills MD LABORATORY Performing Organization Address City/[facility]/ZIP Code Phon e Number [address] [address] [phone] [facility] (ABNORMAL) A.M.A. COMPREHENSIVE MET.PANEL (05/31/2008 10:11 AM CDT) P athologist Signature Sodium 141 133 - 144 [facility] mmol/L [facility] Potassium 4.6 3.4 - 5.3 [facility] mmol/L [facility] Chloride 99 94 - 109 [facility] mmol/L [facility] Carbon Dioxide 29 20 - 32 [facility] mmol/L [facility] Anion Gap 13 6 - 17 [facility] mmol/L [facility] Glucose 92 60 - 99 [facility] mg/dL [facility] Urea Nitrogen 18 7 - 30 [facility] mg/dL [facility] Creatinine 0.82 0.52 - [facility] 1.04 mg/dL [facility] Comment: New IDMS-traceable calibration beginning 12/17/07 GFR Estimate 73 >60 mL/min/1.7m2 [facility] GFR Estimate If Black 88 >60 mL/min/1.7m2 [facility] Calcium 10.6 (H) 8.5 - 10.4 mg/dL [facility] Bilirubin Total 0.5 0.2 - 1.3 mg/dL [facility] Albumin 4.7 3.9 - 5.1 g/dL [facility] Comment: Reference range changed on 04/19. Protein Total 8.1 6.8 - 8.8 g/dL [facility] Comment: As of 08, reference range reflects plasma specimen type. Alkaline Phosphatase 81 40 - 150 U/L [facility] ALT 21 0 - 50 U/L [facility] AST 28 0 - 45 U/L [facility] Specimen Anatomical Collection Method Collection Time Receive d Time (Source) Location / / Volume Laterality 05/31/2008 10:11 05/31/2008 AM CDT 10:14 AM CDT Vanessa Mills MD LABORATORY Performing Organization Address City/State/ZIP Code Phon e Number [facility] [address] [place] [address] [facility] documented in this encounter Visit Diagnoses Diagnosis Pre-operative examination - Primary Preoperative examination, unspecified HYPOTHYROIDISM NOS Unspecified hypothyroidism PURE HYPERCHOLESTEROLEM Pure hypercholesterolemia Unspecified essential hypertension documented in this encounter Care Teams Naval Marine Engineer Relationship Specialty Start Date End Date Angeles Olsen MD PCP - General 02/26/02 08/28/10 documented as of this encounter
--- OUTSIDE RECORDS SUMMARY | 2022-04-16 19:40 | XMS_ITS | Encounter Summary ---
:1955 Author Organization [facility] Address [address] [place] [address]. [place] [address] Care Team Providers Name Role Phone Angeles Olsen MD Primary Care Provider [phone] Reason for Visit Reason Comments Pre-Op Exam Depression Encounter Details Date Type Department Care Team Description 09/24/2007 Office Visit [facility] Vanessa Mills PREOP KASEY Cruz OTHER SPECIFIED (Primary Dx); Alma Mendez MD HYPOTHYROIDISM NOS; [address] [employer] [address] [place] [address] SHAKIRA DEPRESSIVE DISORDER NEC; FABIO Marquez [id number] A HYPERTENSION NOS [phone] [place] [address] Social History Tobacco Use Types Packs/Day Years Used Date Never Smoker Alcohol Use Standard Drinks/Week Comments Yes 0 (1 standard drink = 0.6 oz pure alcoho l) 1 glass of wine per week 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 Date Recorded Female 06/29/2019 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 documented as of this encounter Last Filed Vital Signs Vital Sign Reading Time Taken Comments Blood Pressure 116/76 09/24/2007 9:30 AM VACUUM FRAME OPERATOR Pulse 64 09/24/2007 9:30 AM VACUUM FRAME OPERATOR Temperature 36.8 ??C (98.2 ??F) 09/24/2007 9:30 AM VACUUM FRAME OPERATOR Respiratory Rate 16 09/24/2007 9:30 AM VACUUM FRAME OPERATOR Oxygen Saturation - - Inhaled Oxygen Concentration - - Weight 85.7 kg (189 lb) 09/24/2007 9:30 AM VACUUM FRAME OPERATOR Height 163.2 cm (5' 4.25) 09/24/2007 9:30 AM VACUUM FRAME OPERATOR Body Mass Index 32.19 09/24/2007 9:30 AM VACUUM FRAME OPERATOR documented in this encounter Progress Notes Florinda Álvarez - 09/24/2007 10:59 AM VACUUM FRAME OPERATOR Addended by: FLORINDA ÁLVAREZ on: 09/24/2007 10:59:04 AM Modules accepted: Orders, SmartSet UM FRAME OPERATOR Vanessa Mills - 09/24/2007 9:51 AM CST Valeri E Shlomo presents for pre-op exam. Initial BP 116/76 Pulse 64 Temp (Src) 98.2 (Oral) Resp 16 Ht 5' 4.25 (1.63m) Wt 189 lbs (85.7kg) LMP Hysterectomy Body mass index is 32.19 kg/(m^2).. BP completed using cuff size: large. PRE-OP EVALUATION: Today's date: 09/24/2007 Valeri Rojas (: 1955) presents for pre-operative evaluation as requested by Dr. Gama. She requires evaluation and anesthesia clearance prior to undergoing surgery/procedure for treatment reconstruction of bilateral breasts . Proposed procedure: reconstruction surgery following bilateral m astetomy Date of Surgery/ Procedure: 09/29/07 Time of Surgery/ Procedure: 729 Hospital/Surgical Facility: [facility] Fax number for surgical facility: NA Primary Physician: Dr. Vanessa Mills Type of Anesthesia Anticipated: General History of anesthesia complications: YES: Personal HX Nausea and migraine headache following last surgery 07/2007 History of abnormal bleeding: YES: Personal HX -March 2007 following administration of Heparin post-op. Had bleeding from surgical site with hematoma formation History of blood transfusions: NO Patient has [...] or been told to take iron pills? March 2007 following surgery 13-NO - Have you had any abnormal [...] chance that you may be ?-Hysterectomy HPI: PREOP Valeri Rojas is a 52 year old female presents for pre-operative evaluation as requested by Dr. Gama. She requires evaluation and anesthesia clearance prior to undergoing surgery/procedure for treatment of reconstructive surgery after bilateral mastectomies, and therefore evaluation of her chronic medical issues including hypothyroidism and hypertension. Proposed procedure: removal ofbreast expanders, placement of saline implants, some liposuction. HYPERTENSION - Patient has history of HTN . She currently denies chest pain, palpitations, dyspnea, orthopnea, PND or peripheral edema. Blood pressure readings have been in normal range. Current medication regimen is as listed below. Patient denies any side effects of medication. . DEPRESSION - Patient has a history of Depression of requiring medication for control with recent symptoms being slightly worse due to situational stress. She reports that increasing fluoxetine to 40mg daily induced suicidal thoughts so she resumed her 20mg dose and is doing better..Current symptoms ofdepression include depressed mood, weight gain, anxiety. . HYPOTHYROIDISM - Patient has a of Hypothyroidism. She is s/p total thyroidectomy, as it was felt shemay have a malignancy, but fortunately, this was not the case. 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 Her incision is healing well. Last TSH value of 36 but her levothyroxine dose was increasedto 137mcg daily. She is due today for repeat TSH. Continues to take medications as directed, withoutadverse reactions or side effects. Patient Active Problem List Diagnoses Date Noted [...] [625.6] 09/27/2004 ??? MEDICAL HISTORY OF - [3101620] 09/27/2004 DEXA normal ??? MENOPAUSAL DISORDER NEC [...] simple, complete 03/2007 right ??? Thyroidectomy 07/2007 Current outpatient prescriptions Medication Sig ??? VITAMIN D 1000 UNIT OR TABS 1 TABLET DAILY ??? CALCIUM 600 + D 600-200 MG-UNIT OR TABS 1 tablet daily ??? UNKNOWN MED DOSAGE Glucosamine Chondroitin 1500/1200 2 tabs po qd ??? LEVOTHYROXINE SODIUM 137 MCG OR TABS 1 TABLET DAILY ??? FLUOXETINE HCL 20 MG OR CAPS 1 CAPSULE EVERY MORNING ??? HYDROCHLOROTHIAZIDE 25 MG OR TABS ONE TABLET DAILY IN THE MORNING ??? PIROXICAM 20 MG OR CAPS 1 CAPSULE DAILY ??? ORACEA 40 MG OR CPDR 1 CAPSULE EVERY MORNING BEFORE BREAKFAST ??? MULTI-VITAMIN OR TABS 1 tablet daily ??? VITAMIN C 500 MG OR TABS 1 tablet po qd ??? ALPRAZOLAM 0.25 MG OR TABS ONE TABLET 3 TIMES DAILY, NEEDED FOR ANXIETY ??? ADVIL 200 MG OR TABS 3 TABLETS NEEDED OTC products: None, except as noted above Allergies Allergen Reactions ??? Meperidine nausea ??? Morphine Nausea and dizziness ??? Ancef (cefazolin Sodium) Rash Latex Allergy: NO History Substance Use Topics ??? Tobacco Use: Never ??? Alcohol Use: Yes 1 glass of wine per week History Drug Use No REVIEW OF SYSTEMS: C: NEGATIVE for fever, chills, recent illness E/M: NEGATIVE for ear, mouth and throat problems R: NEGATIVE for significant cough or SOB CV: NEGATIVE for chest pain, palpitations or peripheral edema GI: no n/v/c/d : no UTI symptoms MS: right neck strain after sleeping Breast: hx of Estrogen negative breast cancer, s/p bilateral mastectomies EXAM: BP 116/76 Pulse 64 Temp (Src) 98.2 (Oral) Resp 16 Ht 5' 4.25 (1.63m) Wt 189 lbs (85.7kg) LMP Hysterectomy GENERAL APPEARANCE: healthy, alert and [...] mentation intact and speech normal DIAGNOSTICS: EKG: sinus bradycardia, rate 54 normal axis, normal intervals, no acute ST/T changes c/w ischemia, no LVH by voltage criteria, unchanged from previous tracings CXR: normal heart size, lung richter clear, no abnormalities. Read by Vanessa Mills MD Internal Medicine/Pediatrics Labs: pending IMPRESSION: V72.83 PREOP EXAM OTHER SPECIFIED (primary encounter diagnosis) Note: Breast reconstruction surgery after bilateral mastectomies for Estrogen negative carcinoma in situ breast cancer. Plan: ELECTROCARDIOGRAM, COMP W/READ, CHEST X-RAY 2 VW No contraindication to surgery 244.9 HYPOTHYROIDISM NOS Note: s/p total thyroidectomy, on replacement, due for labs today Plan: TSH W/FREE T4 REFLEX, T4, FREE, SERUM, A.M.A. BASIC METABOLIC PANEL Fax labs to endocrinogist, adjust as needed 311 DEPRESSIVE DISORDER NEC Note: worsening depression with situational stress Plan: BUPROPION HCL# 150 MG OR TB24, FLUOXETINE HCL 20 MG OR TABS Add Bupropion 150mg in am to fluoxetine, may use alprazolam prn. HYPERTENSION NOS [401.9] Note: excellent control Plan: continue HCTZ, take on am of surgery. Check electrolytes today. For above listed surgery and anesthesia: Patient is at LOW risk for surgery/procedure and perioperative/procedure complications. RECOMMENDATIONS: Approval given to proceed with proposed procedure, without further diagnostic evaluation. Signed Electronically by: Vanessa Mills MD Internal Medicine/Pediatrics Copy of this evaluation report is provided to requesting physician. UM FRAME OPERATOR documented in this encounter Nursing Notes 09/24/2007 9:30 AM CST >> FLORINDA ÁLVAREZ 09/24/2007 10:58 am Addendum done so pt could complete PHQ-9 form. Quita Álvarez RN documented in this encounter Plan of Treatment Not on filedocumented as of this encounter Procedures Procedure Name Priority Date/Time Associated Diagnosis Comme nts CL AFF CBC WITH Routine 09/24/2007 10:43 Preop Exam Other Resu lts for this PLATELETS, DIFF AM VACUUM FRAME OPERATOR Specified procedure ar e in the results section. HCL BASIC Routine 09/24/2007 10:43 Hypothyroidism Nos Resul ts for this METABOLIC PANEL AM VACUUM FRAME OPERATOR procedure ar e in the results section. HCL TSH Routine 09/24/2007 10:43 Hypothyroidism Nos Resul ts for this AM VACUUM FRAME OPERATOR procedure are i n the results section. HCL T4 FREE Routine 09/24/2007 10:43 Hypothyroidism Nos Resul ts for this AM VACUUM FRAME OPERATOR procedure are i n the results section. ZZC Routine 09/24/2007 10:30 Preop Exam Other ELECTROCARDIOGRAM, AM VACUUM FRAME OPERATOR Specified COMP W/READ HC CHEST TWO Routine 09/24/2007 Preop Exam Other Results for this VIEWS, FRONT/LAT Specified procedure a re in the results section. documented in this encounter Results (ABNORMAL) CBC WITH PLATELETS, DIFF (09/24/2007 10:43 AM VACUUM FRAME OPERATOR) Component Value Ref Test Analysis Performed At [facility] gist Range Method Time Signature WBC 4.1 4.0 - [facility] 11.0 [facility] 10e9/L LAB RBC Count 4.50 3.8 - [facility] 5.2 [facility] 10e12/L LAB Hemoglobin 13.3 11.7 - [facility] 15.7 [facility] g/dL LAB Hematocrit 40.0 35.0 - [facility] 47.0 % [facility] LAB MCV 89 78 - 100 [place] [facility] LAB MCH 29.6 26.5 - [facility] 33.0 pg [facility] LAB MCHC 33.3 31.5 - [facility] 36.5 [facility] g/dL LAB RDW 15.8 (H) 10.0 - [facility] 15.0 % [facility] LAB Platelet Count 353 150 - [facility] 450 [facility] 10e9/L LAB % Neutrophils 65 40 - 75 [place] % [facility] LAB % Lymphocytes 29 20 - 48 [facility] % [facility] LAB % Monocytes 3 0 - 12 % [facility] LAB % Basophils 3 (H) 0 - 2 % [facility] LAB Absolute 2.7 1.6 - [place] Neutrophil 8.3 [facility] 10e9/L LAB Absolute 1.2 0.8 - [place] Lymphocytes 5.3 [facility] 10e9/L LAB Absolute 0.1 0.0 - [place] Monocytes 1.3 [facility] 10e9/L LAB Absolute 0.1 0.0 - [facility] Basophils 0.2 [facility] 10e9/L LAB RBC Morphology Normal [facility] LAB Platelet Normal [place] Estimate [facility] LAB Diff Method Manual [place] Differential [facility] LAB Specimen Anatomical Collection Method Collection Time Receive d Time (Source) Location / / Volume Laterality 09/24/2007 10:43 09/24/2007 AM VACUUM FRAME OPERATOR 10:54 AM VACUUM FRAME OPERATOR Vanessa Mills MD LABORATORY Performing Organization Address City/State/ZIP Code Phon e Number [address] [place] [address] [phone] [facility] LAB TSH- (09/24/2007 10:43 AM VACUUM FRAME OPERATOR) athologist Signature TSH 4.41 0.4 - 5.0 [facility] mU/L CLINIC LAB Specimen Anatomical Collection Method Collection Time Receive d Time (Source) Location / / Volume Laterality 09/24/2007 10:43 09/24/2007 AM VACUUM FRAME OPERATOR 10:46 AM VACUUM FRAME OPERATOR Vanessa Mills MD LABORATORY Performing Organization Address City/State/ZIP Code Phon e Number [facility] [address] [place] [address] [facility] LAB A.M.A. BASIC METABOLIC PANEL (09/24/2007 10:43 AM VACUUM FRAME OPERATOR) athologist Signature Sodium 140 133 - 144 [place] mmol/L CLINIC LAB Potassium 5.1 3.4 - 5.3 [place] mmol/L [facility] LAB Chloride 99 94 - 109 [place] mmol/L [facility] LAB Carbon Dioxide 31 20 - 32 [place] mmol/L [facility] LAB Anion Gap 10 6 - 17 [place] mmol/L [facility] LAB Glucose 82 60 - 99 [place] mg/dL [facility]IC LAB Urea Nitrogen 18 7 - 30 [place] mg/dL [facility]IC LAB Creatinine 0.92 0.60 - [place] 1.30 mg/dL CLINIC LAB GFR Estimate 68 >60 [place] mL/min/1.7 CLINIC LAB m2 GFR Estimate If 82 >60 [place] Black mL/min/1.7 CLINIC LAB m2 Calcium 10.0 8.5 - 10.4 [place] mg/dL CLINIC LAB Specimen Anatomical Collection Method Collection Time Receive d Time (Source) Location / / Volume Laterality 09/24/2007 10:43 09/24/2007 AM VACUUM FRAME OPERATOR 10:46 AM VACUUM FRAME OPERATOR Vanessa Mills MD LABORATORY Performing Organization Address City/State/ZIP Code Phon e Number [facility] [address] [facility] [place] [address] [phone] [facility] T4, FREE, SERUM (09/24/2007 10:43 AM VACUUM FRAME OPERATOR) P athologist Signature T4 Free 1.14 0.70 - 1.85 [facility] ng/dL CLINIC LAB Specimen Anatomical Collection Method Collection Time Receive d Time (Source) Location / / Volume Laterality 09/24/2007 10:43 09/24/2007 AM VACUUM FRAME OPERATOR 10:46 AM VACUUM FRAME OPERATOR Vanessa Mills MD LABORATORY Performing Organization Address City/State/ZIP Code Phon e Number [facility] [address] [place] [address] [facility] LAB ELECTROCARDIOGRAM, COMP W/READ (09/24/2007 10:30 AM VACUUM FRAME OPERATOR) Narrative This result has an attachment that is no t available. Vanessa Mills MD EKG TECHNICAL CHEST X-RAY 2 VW (09/24/2007) Anatomical Region Laterality Modality Other Impressions 09/24/2007 REPORT OF OUTSIDE FILMS FROM [facility] VALERI ROJAS : ??54 CHEST TWO VIEWS: 09/24/07 Negative. Shelley Hobbs M.D./sb D/ Ordering MD/Provider Initial Interpretat ion: Normal/Negative Electronically filed by Nacho Heredia ??09/24/2007 ??11:06 AM . Vanessa Mills MD GENERAL IMAGING documented in this encounter Visit Diagnoses Diagnosis Other specified pre-operative examinatio n - Primary Unspecified hypothyroidism Depressive disorder, not elsewhere class ified Unspecified essential hypertension documented in this encounter Care Teams Leather Cutter Relationship Specialty Start Date End Date Angeles Olsen MD PCP - General 02/26/02 08/28/10 documented as of this encounter
--- OUTSIDE RECORDS SUMMARY | 2022-04-16 19:40 | XMS_ITS | Encounter Summary ---
:1955 Author Organization [facility] Address [address] [place] [address]. [place] [address] Care Team Providers Name Role Phone Angeles Olsen MD Primary Care Provider [phone] Reason for Referral - Closed Specialty Diagnoses / Procedures Referred By Contact Refer red To Contact Diagnoses Depressive disorder, not elsewhere classified Vanessa Mills MD [address] [place], [place] [address] Referral ID Status Reason Start Date Expiration Date Visits Requ ested Visits Authorized [id number] Closed 08/25/2007 08/17/2011 1 1 DRIER Reason for Visit Reason Comments Depression Encounter Details Date Type Department Care Team Description 08/25/2007 Office Visit [facility] Vanessa Mills DEPRESSIV E DISORDER NEC (Primary Dx); Alma Mendez MD HYPOTHYROIDISM NOS [address] [facility] [address] [place] [address] FABIO Marquez [id number] A [phone] [place], [place] [address] Social History Tobacco Use Types Packs/Day Years Used Date Never Smoker Alcohol Use Standard Drinks/Week Comments Yes 0 (1 standard drink = 0.6 oz pure alcoho l) 1 glass of wine per week 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 Date Recorded Female 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 Pt calling to report she has been [...] will be increasing her levothyroxin. She will picker operator this RX today. Sheknows this can also affect depression. Pt would like to personally talk to Dr. Mills. Initial BP 122/78 Pulse 60 Resp 16 Wt 187 lbs (84.8kg) LMP Hysterectomy Estimated Body mass index is 31.85 kg/(m^2) as calculated from: Height of 5' 4.25 (1.632 m) as of 08/19/07 Weight of 187 lbs (84.823 kg) as of this encounter. BP completed using cuff size: regular. Quita Álvarez RN Valeri Keenan is a 52 year old female here for the following issues: DEPRESSIVE DISORDER NEC Depression flaring, some occasional suicidal ideation but no plan. Multiple life stressors, had breast cancer dx last summer and underwent surgery. Then had an abnormal thyroid biopsy and feared she had cancer. Underwent total thyroidectomy and fortunately, this was not cancer. Pt having marital problems, feels her spouse is not supportive in all of the medical scares she has had. Did not want her toseek treatment for her breast cancer. No intimacy in her marriage. She is in tears today, feels isolated and sad. On Fluoxetine 20mg daily. No report of anxiety, rarely uses alprazolam. She has multiple questions about how an underactive thyroid can contribute to depression. No current counseling. HYPOTHYROIDISM NOS Total thyroidectomy, no cancer found in the pathology. Pt followed by nitrator operator and Dr. Garcia. Last TSH check was 36. Pt's thyroid medication was adjusted. Pt is asking if dose can be increased again to hasten the TSH to get to normal range. Neck incision is healing well. EXAM BP 122/78 Pulse 60 Resp 16 Wt 187 lbs (84.8kg) LMP Hysterectomy Gen: appears sad, tearful Neck: well healing incision at base of neck Psych: sad throughout interview. Assessment: 311 DEPRESSIVE DISORDER NEC (primary encounter diagnosis) Note: flare of depression, situational stress, marital discord Plan: FLUOXETINE HCL 40 MG OR CAPS, CONSULT PSYCHIATRY ([facility]) Increase fluoxetine to 40mg daily, strongly recommend counseling, pt agrees to this. To ER if suicidal. RTC in 3 -4 wks (she has preop to have breast expanders removed). 244.9 HYPOTHYROIDISM NOS Note: TSH 36 Plan: TSH W/FREE T4 REFLEX, T4, FREE, SERUM, A.M.A. BASIC METABOLIC PANEL Strongly cautioned pt not to increase current dose of thyroid med. May return in 3-4 wks for thyroid labs. DRIER documented in this encounter Plan of Treatment Not on filedocumented as of this encounter Procedures Procedure Name Priority Date/Time Associated Diagnosis Comme eufemia ZZ CONSULT MENTAL HEALTH Routine 11/29/2009 Depressive Di sorder, not Elsewhere Classified documented in this encounter Results CONSULT PSYCHIATRY ([facility]) (11/29/2009) Narrative This result has an attachment that is no t available. Vanessa Mills MD REFERRAL documented in this encounter Visit Diagnoses Diagnosis Depressive disorder, not elsewhere class ified - Primary Unspecified hypothyroidism documented in this encounter Care Teams Electronics Instructor Relationship Specialty Start Date End Date Angeles Olsen MD PCP - General 02/26/02 08/28/10 documented as of this encounter
--- OUTSIDE RECORDS SUMMARY | 2022-04-16 19:40 | XMS_ITS | Encounter Summary ---
:1955 Author Organization [facility] Address [address] [place] [address]. [place] [address] Care Team Providers Name Role Phone Angeles Olsen MD Primary Care Provider [phone] Encounter Details Date Type Department Care Team Description 10/13/2008 E-Visit [facility] Eag an Vanessa Mills Other Specified [address] [facility] MD Vanessa Counseling (Primary Dx) FABIO Marquez [phone] [facility] A [phone] [place] [address] (Wo rk) Social History Tobacco Use Types Packs/Day Years Used Date Never Smoker Alcohol Use Standard Drinks/Week Comments Yes 0 (1 standard drink = 0.6 oz pure alcoho l) 1 glass of wine per week 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 Date Recorded Female 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 Rx for prophylaxis to [place]. Will be gone 16 days, start med 2 days prior to travel and take daily during travel, then for 4 more weeks after returning to [facility]. My chart message sent to pt. Vanessa Mills MD Internal Medicine/Pediatrics LER INSTALLER documented in this encounter Plan of Treatment Not on filedocumented as of this encounter Visit Diagnoses Diagnosis Other specified counseling - Primary documented in this encounter Care Teams Route Delivery Clerk Relationship Specialty Start Date End Date Angeles Olsen MD PCP - General 02/26/02 08/28/10 documented as of this encounter
--- OUTSIDE RECORDS SUMMARY | 2022-04-16 19:40 | XMS_ITS | Encounter Summary ---
:1955 Author Organization [facility] Address [address] [place] [address]. 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 Pt was feeling better and talked about her past surgery and history of breast cancer, as well as her decision to have a profilactic mastectomy instead of doing chemo and radiation. Pt said that the stress of her illness has impacted her marriage and that she and her are trying to cope and understand one another. They recently went to a breast cancer expo together and he understood better the decisions that she had been making about her health. Pt has two sons who live nearby and are a good support to her. She also belongs to [facility] [employer] and is involved in a small group. Pt recognizes that she has some grieving to do about the changes in her life and has thought of joining a support group for breast cancer survivors. Pt requested prayer for her pain and for her family. I provided supportive listening and prayer. Chaplains will continue to follow as needed. [Signature] Author:Kelly Crystal (Stoner Hand) [Signed 27-May-2007 10:26] Interface, Correctional Counselor - 11/05/2010 8:55 AM CDT Patient Status Patient Status - Physical status Stable (s/s of potential complications absent or manageable) - Psychosocial status Stable Discharge Planning - Discharge From: [facility] - Patient Care Unit: [facility] 3 - PCU - Discharge To: Home/Alternative home Discharge Information Discharge Information - Discharge information Discharge instructions reviewed with pt/family/so; Prescriptions given - Accompanied by Spouse - Mode of Travel Wheelchair Medications and Prescriptions Medications and Prescriptions - Medications and Prescriptions given to patient Prescriptions Support Services Support Services - Is home care recommended? No - Supplies sent/ordered No - Equipment sent/ordered No - Other Services arranged No Special Care Needs and Instructions - Diet Instructions: diet as tolerated - Activity Instructions: do not extend arms above head until follow up appointment increase activity as tolerated - Report temp if greater 100.5 degrees F than: - Signs or symptoms to call Bleeding or pus from incisions the physician: increased pain/swelling temp greater than 100.5 yellow/green drainage from KRISTY drains - Who patient should call: Dr. Gama - Additional instructions for monitor incisions daily wound care: can shower apply bacitracin to incisions daily drain KRISTY drains as needed - Is patient going home with No IV Catheter?: - Other Special Care Needs: You may shower with incisions/drains exposed. Apply Bacitracin ointment to incisions daily. Follow Up Care - Physician name: Follow up with Dr. Gama in 1-2 weeks [phone] VIC Ortiz (RN)[Signed 28-May-2007 11:33] Authored: Patient Status, Discharge Information, Medications and Prescriptions, Support Services, Special Care Needs and Instructions, Follow Up Care JACOB ORTIZ (RN)[Signed 27-May-2007 19:44] Authored: Discharge Planning, Special Care Needs and Instructions, Follow Up Care documented in this encounter Plan of Treatment Not on filedocumented as of this encounter Visit Diagnoses Not on filedocumented in this encounter Care Teams Velvet Cutter Relationship Specialty Start Date End Date Angeles Olsen MD PCP - General 02/26/02 08/28/10 System, Provider Not In PCP - General 08/29/10 06/30/13 documented as of this encounter
--- OUTSIDE RECORDS SUMMARY | 2022-04-16 19:40 | XMS_ITS | Encounter Summary ---
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 Dr Murphy will be down to see pt this evening Signatures Erendira Diggs (RN)[Signed 15:26] Authored: Notification documented in this encounter Plan of Treatment Not on filedocumented as of this encounter Visit Diagnoses Not on filedocumented in this encounter Care Teams Marketing Strategy Analyst Relationship Specialty Start Date End Date Angeles Olsen MD PCP - General 02/26/02 08/28/10 System, Provider Not In PCP - General 08/29/10 06/30/13 documented as of this encounter
--- OUTSIDE RECORDS SUMMARY | 2022-04-16 19:40 | XMS_ITS | Encounter Summary ---
:1955 Author Organization [facility] Address [address] [place] [address]. [place] [address] Care Team Providers Name Role Phone Angeles Olsen MD Primary Care Provider [phone] Reason for Visit Reason Comments Sinus Problem Encounter Details Date Type Department Care Team Description 06/30/2008 Office Visit [facility] Eag Vanessa Byrne Sinus Pressure (Primary Dx); [address] [employer] MD Vanessa Unspecified Sleep Disturbance [place] [phone] [address] [facility] [place] [phone] [place] [address] Social History Tobacco Use Types Packs/Day Years Used Date Never Smoker Alcohol Use Standard Drinks/Week Comments Yes 0 (1 standard drink = 0.6 oz pure alcoho l) 1 glass of wine per week 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 Date Recorded 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 Last Filed Vital Signs Vital Sign Reading Time Taken Comments Blood Pressure 108/62 06/30/2008 8:00 AM CATERING COORDINATOR Pulse 64 06/30/2008 8:00 AM CATERING COORDINATOR Temperature 36.2 ??C (97.2 ??F) 06/30/2008 8:00 AM CATERING COORDINATOR Respiratory Rate 16 06/30/2008 8:00 AM CATERING COORDINATOR Oxygen Saturation - - Inhaled Oxygen Concentration - - Weight 84.8 kg (187 lb) 06/30/2008 8:00 AM CATERING COORDINATOR Height - - Body Mass Index 31.6 05/31/2008 9:21 AM CDT documented in this encounter Progress Notes Vanessa Mills - 06/30/2008 8:15 AM CST Pt presents for sinus symptoms that began one week ago. Began with stiff neck and pain at base of skull. Then pain moved to top of her head-this has resolved. Now has frontal pressure, post-nasal drainage, and some dizziness. Has noted some ear discomfort. No cough. Luis Sweeney Valeri Keenan is a 53 year old female here for one wk history of headache, which started at the base of her neck, now headaches is over her forehead, feels hot and cold. Has ear pressure and pain. Uses ear plugs at night because her spouse snores. She has been taking ibuprofen. Lots of postnasal drip. No fevers, no purulent nasal discharge. Poor sleep quality because spouse snores. Awakens and cannot fall back asleep. Wears earplugs. This is a stress in her marriage. Her spouse has invited her to go to a doctor appt with him to discuss issue. He does not wish to wear a CPAP mask if he has sleep apnea. EXAM BP 108/62 Pulse 64 Temp (Src) 97.2 ??F (36.2 ??C) (Oral) Resp 16 Wt 187 lb (84.823 kg) LMPHysterectomy Gen: Alert, NAD HEENT: Conjuntiva clear bilaterally. TMs normal bilaterally, OP is moist, minimal posterior erythema. Neck supple, no adenopathy. Nares with boggy mucosa, clear rhinorrhea. COR: S1S2 no murmur Lungs: CTA bilaterally ABD: Soft, +bowel sounds, no tenderness or HSM SKIN: No rash Assessment: 478.19ER Sinus Pressure (primary encounter diagnosis) Comment: no evidence of infection, suspect viral illness, congestion Plan: FLUTICASONE PROPIONATE (NASAL) 50 MCG/ACT NA SUSP, PSEUDOEPHEDRINE HCL 60 MG OR TABS Discussed symptomatic cares, pt to contact MD for persistent, worsening sx over next 10 days Unspecified Sleep Disturbance [780.50] Note : spouse snoring, she awakens and cannot fall back to sleep. Plan Recommend she go with spouse to address this issue at his doctor appt. Discussed dx of sleep apnea with pt. RING COORDINATOR documented in this encounter Nursing Notes 06/30/2008 8:00 AM CST >> GARDENIA COOPER [facility] Jun 30, 2008 8:12 AM Pt presents for sinus symptoms that began one week ago. Luis Sweeney documented in this encounter Plan of Treatment Not on filedocumented as of this encounter Visit Diagnoses Diagnosis Sinus pressure - Primary Other diseases of nasal cavity and sinus es Sleep disturbance, unspecified documented in this encounter Care Teams Blood Coordinator Relationship Specialty Start Date End Date Angeles Olsen MD PCP - General 02/26/02 08/28/10 documented as of this encounter
--- OUTSIDE RECORDS SUMMARY | 2022-04-16 19:40 | XMS_ITS | Encounter Summary ---
:1955 Author Organization [facility] Address [address] [place] [address]. [place] [address] Care Team Providers Name Role Phone Angeles Olsen MD Primary Care Provider Reason for Visit Reason Comments Hypertension follow up Encounter Details Date Type Department Care Team Description 08/19/2007 Office Visit [facility] Marlin Murphy HYPERTLeticia NSION NOS Alma Kelly MD (Primary Dx) [address] [place] [address] [facility] [phone] [place] [address] Social History Tobacco Use Types Packs/Day Years Used Date Never Smoker Alcohol Use Standard Drinks/Week Comments Yes 0 (1 standard drink = 0.6 oz pure alcoho l) 1 glass of wine per week 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 Date Recorded Female 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 documented as of this encounter Last Filed Vital Signs Vital Sign Reading Time Taken Comments Blood Pressure 122/80 08/19/2007 3:15 PM CLIENT RELATIONSHIP CONSULTANT Pulse 66 08/19/2007 3:15 PM CLIENT RELATIONSHIP CONSULTANT Temperature - - Respiratory Rate - - Oxygen Saturation - - Inhaled Oxygen Concentration - - Weight 85.3 kg (188 lb) 08/19/2007 3:15 PM CLIENT RELATIONSHIP CONSULTANT Height 163.2 cm (5' 4.25) 08/19/2007 3:15 PM CLIENT RELATIONSHIP CONSULTANT Body Mass Index 32.02 08/19/2007 3:15 PM CLIENT RELATIONSHIP CONSULTANT documented in this encounter Progress Notes Marlin Murphy - 08/19/2007 4:19 PM CST Subjective: Valeri Keenan is a 52 year old female with hypertension. Current outpatient prescriptions Medication Sig ??? ALPRAZOLAM 0.25 MG OR TABS ONE TABLET 3 TIMES DAILY, NEEDED FOR ANXIETY ??? HYDROCHLOROTHIAZIDE 25 MG OR TABS ONE TABLET DAILY IN THE MORNING ??? LEVOTHYROXINE SODIUM 100 MCG OR TABS [...] OR TABS 1 tablet po qd ??? ADVIL 200 MG OR TABS 3 TABLETS NEEDED States since she has been home from hospital, home bp readings have been less than 120/80. Has been taking hctz daily. Hypertension ROS: taking medications as instructed, no medication side effects noted, no TIA's, no chest pain on exertion, no dyspnea on exertion, no swelling of ankles. New concerns: recent thyroidectomy. Has appointment with her manager patient in 2 days, will have tsh checked there. Objective: BP 122/80 Pulse 66 Ht 5' 4.25 (1.63m) Wt 188 lbs (85.3kg) LMP Hysterectomy GENERAL APPEARANCE: healthy, alert and no distress NECK: no adenopathy, no asymmetry, masses, thyroid scar not erythematous. Slight hypertrophy around site. RESP: lungs clear to auscultation - no rales, rhonchi or wheezes CV: regular rates and rhythm, normal S1 S2, no S3 or S4 and no murmur, click or rub -, no peripheraledema ABDOMEN: soft, nontender, no HSM or masses and bowel sounds normal Lab review: labs are reviewed, up to date and normal. Assessment: Hypertension well controlled, stable. Plan: current treatment plan is effective, no change in therapy, lab results and schedule of future lab studies reviewed with patient, repeat labs ordered prior to next appointment. Will be seeing Dr. Velasquez approx 1 month for a preop. Will have labs done then. NT RELATIONSHIP CONSULTANT documented in this encounter Nursing Notes 08/19/2007 3:15 PM CST >> GARDENIA COOPER 09/24/2007 10:51 am Encounter opened erroneously. Quita Cooper RN >> LIZBETH PASCUAL 08/19/2007 3:38 pm Valeri Keenan presents for follow up to blood pressure. Initial BP 122/80 Pulse 66 Ht 5' 4.25 (1.63m) Wt 188 lbs (85.3kg) LMP Hysterectomy Body mass index is 32.02 kg/(m^2).. BP completed using cuff size: regular Lizbeth Pascual MA documented in this encounter Plan of Treatment Not on filedocumented as of this encounter Visit Diagnoses Diagnosis Unspecified essential hypertension - Emily luu documented in this encounter Care Teams Farm Operator Relationship Specialty Start Date End Date Angeles Olsen MD PCP - General 02/26/02 08/28/10 documented as of this encounter
--- OUTSIDE RECORDS SUMMARY | 2022-04-16 19:40 | XMS_ITS | Encounter Summary ---
:1955 Author Organization [facility] Address [address] [place] [address]. [place] [address] Care Team Providers Name Role Phone Angeles Olsen MD Primary Care Provider Reason for Visit Reason Onset Date Comments Hypertension 06/11/2007 Encounter Details Date Type Department Care Team Description 06/11/2007 Telephone [facility] Eag an Vanessa Mills, Hypertension [address] [facility] [place] [phone] [place] [address] [place] [address] (Wo rk) Social History Tobacco Use Types Packs/Day Years Used Date Never Smoker Alcohol Use Standard Drinks/Week Comments Yes 0 (1 standard drink = 0.6 oz pure alcoho l) 1 glass of wine per week 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 Date Recorded 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 Advised to call with any other questions or concerns. Quita Álvarez RN Telephone Encounter - Vanessa Mills - 06/11/2007 12:52 PM CDT RX for HCTZ 25mg daily sent to pharmacy, take one in AM, return in 2 wks for BP check with MD Vanessa Mills MD Internal Medicine/Pediatrics Telephone Encounter - Gardenia Álvarez - 06/11/2007 12:19 PM CDT Pt calling to report that she is still having high BPs. Upon discharge BP was elevated. This week she had BP checked with home monitor and it was 150/80. Checked BP at [facility] and it was 165/88. Pt is experiencing daily headaches and lightheadedness. Per pre-op note, plan was to begin HCTZ if elevated BP continues. Quita Álvarez RN Telephone Encounter - Gardenia Álvarez - 06/11/2007 12:16 PM CDT Staff Message copied by GARDENIA ÁLVAREZ on 06/11/2007 at 12:16 PM ------ Message from: HERNAN REID Created: 06/11/2007 at 11:16 AM Regarding: KRISTY BP ELEVATED FOR PRE OP. SHOULD SHE MONITOR IS FOR A WK THEN COME IN? PLZ CALL HER AT [phone] TO DISCUSS. documented in this encounter Plan of Treatment Not on filedocumented as of this encounter Visit Diagnoses Diagnosis Unspecified essential hypertension - Emily bell documented in this encounter Care Teams Applied Psychology Teacher Relationship Specialty Start Date End Date Angeles Olsen MD PCP - General 02/26/02 08/28/10 documented as of this encounter
--- OUTSIDE RECORDS SUMMARY | 2022-04-16 19:40 | XMS_ITS | Encounter Summary ---
:1955 Author Organization [facility] Address [facility] [place] [address] Care Team Providers Name Role Phone Angeles Olsen MD Primary Care Provider Encounter Details Date Type Department Care Team Description 07/02/2007 Results Only [facility] Humphrey Hull MD [facility] 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 documented in this encounter Results FINE NEEDLE ASPIR,SUPERFICIAL (07/02/2007 10:44 AM MERCHANDISE ASSOCIATE) [facility] Method Time Signature [facility] RADIOLOGY RESULT ULTRASOUND-GUIDED THYROID FINE NEEDLE ASPIRATION BIOPSY RESULTS Jul 02, 2007 10:44:00 AM HISTORY: ?? Thyroid nodule. ??Thyroid US done here 05/22/07. ?? TECHNIQUE: ??Informed consent was obtained for the procedure with discussion including possible risks of bleeding and infectio n. Using sterile technique and sonographic guidance, I biopsied the n odule in the lower pole of the right lobe twice with 25-gauge needles . The material obtained was submitted on slides for cytologic eval uation. There were no immediate complications of the procedure. Specimen (Source) Anatomical Collection Method Collection Time Re ceived Time Location / / Volume Laterality 07/02/2007 10:44 AM MERCHANDISE ASSOCIATE Humphrey Hull MD LABORATORY Performing Organization Address City/State/ZIP Code Phon e Number RADIOLOGY RESULTS documented in this encounter Visit Diagnoses Not on filedocumented in this encounter Care Teams Gynaecological Oncologist Relationship Specialty Start Date End Date Angeles Olsen MD PCP - General 02/26/02 08/28/10 documented as of this encounter
--- OUTSIDE RECORDS SUMMARY | 2022-04-16 19:40 | XMS_ITS | Encounter Summary ---
:1955 Author Organization [place] [facility] Address [address] [place] [address]. [place] [address] Care Team Providers Name Role Phone Angeles Olsen MD Primary Care Provider [phone] Reason for Visit Reason Onset Date Comments Other 09/24/2007 travel to [facility] Encounter Details Date Type Department Care Team Description 09/24/2007 Telephone [facility] Eag Vanessa Byrne (travel to [employer] MD peggy Mendez) [place] [phone] [place] [address] [place] [address] Social History Tobacco Use Types Packs/Day Years Used Date Never Smoker Alcohol Use Standard Drinks/Week Comments Yes 0 (1 standard drink = 0.6 oz pure alcoho l) 1 glass of wine per week 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 Date Recorded 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
--- OUTSIDE RECORDS SUMMARY | 2022-04-16 19:40 | XMS_ITS | Encounter Summary ---
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 - Can patient name a Yes Surrogate Decision Maker? (Not legally binding) - Surrogate Name: Ed - Surrogate Number: - <R> Would you like to Yes. AD booklet given receive information about Advanced Directives? Valuables Valuables - Valuables Yes - Type of Valuables clothes & personal items Health and Illness History Health and Illness History - <R> Reason for thyroidectomy admission/chief complaint as stated by patient Previous reaction to anesthesia - Previous reaction to Anesthetic reaction, nausea and vomiting anesthesia Prosthetic Implants - Prosthetic Implants breast expanders Vascular Access Device - Does the patient have a VAD No (Vascular Access Device)? Allergies Drug ?? Demerol HCl;Nausea; Vomiting, Active f0?? Ancef;Rash, Active f0?? Morphine;Nausea, Active pard par Substance Use Tobacco Use - <R> Tobacco Use None Caffeine Use - <R> Caffeine Use Yes - Caffeine Type Pop/soda - Caffeine Amount < 3 cups/day Alcohol Use - <R> History of Alcohol Use Yes - Alcohol Type Wine - Alcohol Frequency Two to three times a week Street/Recreational Drug Use - <R> History of No Street/Recreational Drug Use Review of Systems Cardiac - Cardiac Problems No Pulmonary - Pulmonary Problems No Peripheral Vascular - Peripheral Vascular No Problems Neuro-Muscular - Neuro Muscular Problems No ENT - ENT Problems No GI - GI Problems No Bowel Program - Bowel Program No - Problems No Bladder Program - Bladder Program No Skin - Skin Problems No Immune - <R> Immune Problems No - <R> Immunizations Current Immunizations current - Influenza vaccine Date of last influenza vaccine, 2001 approx - Resistant Organism none Endocrine - <R> Endocrine Problems Yes - Endocrine Hypothyroid disorder Conditions/Symptoms Mental Health - <R> Mental Health Problems No Cognitive Perceptual Sensory Deficits/Cognition - <R> Alterations in No Sensation - <R> Vision Problems No - <R> Hearing Problems No - <R> Use of Sensory Yes Assistive Devices - Sensory Assistive Devices Glasses - <R> Reading Problems No - <R> Communication Problems No - <R> Changes in thought No Process/Behavior Activity-Exercise/Self Care Functional Screen - <R> Ambulation 0 - Independent with ambulation - <R> Transferring 0 - Independent with transfers - <R> Toileting 0- Independent with toileting - <R> Bathing 0- Independent with bathing - <R> Dressing 0- Independent with dressing - <R> Eating 0- Independent with eating - <R> Swallowing none noted - <R> Fall history within No history of falls last six months - <R> Which of the above None functional risks had a recent onset or change? Nutrition/Metabolic Diet Information - Diet Regular Nutrition Risk Screen - <R> Nutrition Risk Screen No risk indicators present - Perception of nutritional Good health Dental Information - Dental Care Receives routine dental care - Dental/Oral Status Teeth intact, good condition Sleep/Relaxation Sleep Pattern - <R> Problems Sleeping Yes - Problems Awakens in the middle of the night Role Relationships Abuse Risk Screen - <R> QUESTION TO PATIENT: No. Are you now or have you ever been in a relationship where you have been abused physically, emotionally or sexually? - <R> NURSE OBSERVATION: Is No there reasonable cause to believe the patient has been abused, assaulted, is self abusive, neglected or exploited? Coping-Stress Tolerance Coping-Stress - <R> Have you had a recent Yes major change/significant loss/stressor in your life - Major Change/ Loss Illness; breast CA Values/Beliefs/Spiritual Care Values/Beliefs/Spiritual Care - <R> Would you like pastoral Contacted: care/clergy/vacation sales advisor notified? Mutuality/Individual Preferences Mutuality/Preferences - <R> What information would none help us give you more personalized care? - <R> What if any limitations None on visitors, TV or phone calls would you like Signatures Radha Mccarty (RN)[Signed 12:00] Authored: Valuables, Review of Systems, Role Relationships Radha Colvin (RN)[Signed 07:21] Authored: General Information, Advance Directive, Health and Illness History, Allergies, Substance Use, Review of Systems, Cognitive Perceptual, Activity- Exercise/Self Care, Nutrition/Metabolic, Sleep/Relaxation, Role Relationships, Coping-Stress Tolerance, Values/Beliefs/Spiritual Care, Mutuality/Individual Preferences documented in this encounter Plan of Treatment Not on filedocumented as of this encounter Visit Diagnoses Not on filedocumented in this encounter Care Teams Assistant Housekeeping Manager Relationship Specialty Start Date End Date Anegles Olsen MD PCP - General 02/26/02 08/28/10 System, Provider Not In PCP - General 08/29/10 06/30/13 documented as of this encounter
--- OUTSIDE RECORDS SUMMARY | 2022-04-16 19:40 | XMS_ITS | Encounter Summary ---
:1955 Author Organization [facility] Address [address] [place] [address]. [place] [address] Care Team Providers Name Role Phone Angeles Olsen MD Primary Care Provider [phone] Reason for Visit Reason Onset Date Comments Refill Request 02/16/2008 Wellbutrin Encounter Details Date Type Department Care Team Description 02/16/[address] 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 MARILYN did not show up on their end. Resent Rx with MARILYN documented in the sig. Pt notified needs f/u. Yuliana Chaney RN Telephone Encounter - Vanessa Mills - 02/16/2008 11:47 PM CDT Rx sent to pharmacy, I'd recommend another visit to evaluate depression. She scored fairly high lasttime and I want to be sure she does not need dose adjustment. Please notify pt, thanks Vanessa Mills MD Internal Medicine/Pediatrics Telephone Encounter - Geraldine Lee - 02/16/2008 9:06 AM CDT Message from pharmacy that pt requesting Wellbutrin brand name only. Asking for MARILYN Rx. Last OV 11/23. To Dr. Mills for authorization. Geraldine Lee RN documented in this encounter Plan of Treatment Not on filedocumented as of this encounter Visit Diagnoses Diagnosis Depressive disorder, not elsewhere class ified - Primary documented in this encounter Care Teams Agent Based Modeler Relationship Specialty Start Date End Date Angeles Olsen MD PCP - General 02/26/02 08/28/10 documented as of this encounter
--- OUTSIDE RECORDS SUMMARY | 2022-04-16 19:40 | XMS_ITS | Encounter Summary ---
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 documented in this encounter Results EKG 12 LEAD (05/26/2007 11:09 AM CDT) Component Value Ref Range Test Analysis Performed Pathologis t Method Time At Signature Ventricular Rate 60 BPM RADIOLOGY RESULTS Atrial Rate 60 BPM RADIOLOGY RESULTS TN Interval 158 ms RADIOLOGY RESULTS QRS Duration 86 ms RADIOLOGY RESULTS QT 428 ms RADIOLOGY RESULTS QTc 428 ms RADIOLOGY RESULTS P [place] 60 degrees RADIOLOGY RESULTS R AXIS 46 degrees RADIOLOGY RESULTS T [place] 39 degrees RADIOLOGY RESULTS Interpretation Poor data quality, interpretation may be adv ersely affected RADIOLOGY ECG AGE AND GENDER SPECIFIC ECG ANALYSIS RESULTS Sinus rhythm with Premature ventricular complexes or Fusion complexes Possible Left atrial enlargement Borderline ECG Unconfirmed report - interpretation of this ECG is computer generated - kavin tinsley record for final interpretation Specimen Anatomical Collection Method Collection Time Receive d Time (Source) Location / / Volume Laterality 05/26/2007 11:09 05/27/2007 AM CDT 12:44 PM CDT Transcripton Interface ECG ORDERABLES Performing Organization Address City/State/ZIP Code Phon e Number RADIOLOGY RESULTS documented in this encounter Visit Diagnoses Not on filedocumented in this encounter Care Teams Health And Wellness Instructor Relationship Specialty Start Date End Date Angeles Olsen MD PCP - General 02/26/02 08/28/10 System, Provider Not In PCP - General 08/29/10 06/30/13 documented as of this encounter
--- OUTSIDE RECORDS SUMMARY | 2022-04-16 19:41 | XMS_ITS | Encounter Summary ---
:1955 Author Organization [facility] Address [address] [place] [address] Care Team Providers Name Role Phone Angeles Olsen MD Primary Care Provider [phone] Encounter Details Date Type Department Care Team Description 03/16/2007 Operative Report [facility] Lorena Hanna, (Continuing Education Dean) Rowena Tai MD [address] [place] [address] [address] [place], [place] [address] [place], [place] [phone] (Wo rk) Social History Tobacco Use Types Packs/Day Years Used Date Never Smoker Alcohol Use Standard Drinks/Week Comments Yes 0 (1 standard drink = 0.6 oz pure alcoho l) 1 glass of wine per week 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 Date Recorded 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 POSTOPERATIVE DIAGNOSIS: Right mastectomy hematoma. PROCEDURE: Evacuation right mastectomy hematoma. SURGEON: Lorena Hanna MD LABORATORY TESTER: KAVITHA Sanchez ANESTHESIA: General. PREOPERATIVE MEDICATIONS: Ancef 1 gram IV. INDICATIONS: The patient is a 52-year-old female who had a right mastectomy and sentinel node biopsy yesterday by Dr. Jameson. This morning she has obvious hematoma involving the mastectomy site with dark blood which is unable to be evacuated completely via the KRISTY. Her hemoglobin has dropped 3 grams and she is having decrease in her blood pressure as well. She is brought to the operating room at thistime for exploration and evacuation of hematoma. DESCRIPTION OF PROCEDURE: The patient is placed supine. Right breast is prepped and draped in the usual sterile fashion. The KRISTY site is included. The On-Q is removed. The previous incision is then reopened and it is an oblique incision with an infracircumareolar incision, with a nipple-sparing mastectomy having been performed. Upon opening the cavity, 300 cc of clot was evacuated. The site was then copiously irrigated with saline solution and the bed of the mastectomy was inspected for hemostasis. There were several small oozing sites. No obvious large scale arterial or venous bleeder was encountered. The drain tract was investigated and showed no obvious abnormality as well. There was some bloodthat came down the tract, but this appeared to be old and not ongoing in nature. The axillary aspectlooks fine. There is a thicker aspect of the flap superiorly and at the region of the nipple which was ecchymotic and felt to perhaps contain a source of the bleeding. The flap was debrided in an attempt to identify the bleeding source; none was identified. That tissue was submitted as debrided mastectomy flap. The site was then inspected again, irrigated with Ancef solution and closed over the existing KRISTY drain. Closures with 3-0 Vicryl subdermal and 4-0 subcuticular Monocryl. The patient toleratedthe procedure well and was transferred to recovery in good condition. ESTIMATED BLOOD LOSS: 300 cc (old loss). Electronically signed on 03/30/2007 09:14 by LORENA HANNA MD MT: [id number] Name: VALERI ROJAS Account: [id number] : 1955 Procedure Date: 03/16/2007 Document: [id number] documented in this encounter Plan of Treatment Not on filedocumented as of this encounter Visit Diagnoses Not on filedocumented in this encounter Care Teams Residential Sales Executive Relationship Specialty Start Date End Date Angeles Olsen MD PCP - General 02/26/02 08/28/10 documented as of this encounter
--- OUTSIDE RECORDS SUMMARY | 2022-04-16 19:41 | XMS_ITS | Encounter Summary ---
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 - Can patient name a Yes Surrogate Decision Maker? (Not legally binding) - Surrogate Name: anastasia- - Surrogate Number: - <R> Would you like to No receive information about Advanced Directives? Health and Illness History Health and Illness History - <R> Reason for breast cancer surgery admission/chief complaint as stated by patient Previous reaction to anesthesia - Previous reaction to Anesthetic reaction, nausea anesthesia Prosthetic Implants - Prosthetic Implants None Vascular Access Device - Does the patient have a VAD No (Vascular Access Device)? Allergies Drug ?? Demerol HCl;Nausea; Vomiting, Active f0?? Ancef;Rash, Active pard par Substance Use Tobacco Use - <R> Tobacco Use None Caffeine Use - <R> Caffeine Use Yes - Caffeine Type Coffee - Caffeine Amount < 3 cups/day Alcohol Use - <R> History of Alcohol Use Yes - Alcohol Type Wine - Alcohol Frequency Two to three times a week - Alcohol Amount 1 - [address]/Recreational Drug Use - <R> History of No Street/Recreational Drug Use Review of Systems Cardiac - Cardiac Problems No Pulmonary - Pulmonary Problems No Peripheral Vascular - Peripheral Vascular No Problems Neuro-Muscular - Neuro Muscular Problems No ENT - ENT Problems No GI - GI Problems Yes - GI Conditions/Symptoms Constipation - Problems No Skin - Skin Problems No Immune - <R> Immune Problems No - <R> Immunizations Current Immunizations current - Influenza vaccine Has never received an influenza vaccine - Tetanus/Diphtheria Date of last tetanus vaccine2004 Endocrine - <R> Endocrine Problems Yes - Endocrine Hypothyroid disorder Conditions/Symptoms Mental Health - <R> Mental Health Problems No Cognitive Perceptual Sensory Deficits/Cognition - <R> Alterations in No Sensation - <R> Vision Problems Yes - Vision problems present Decreased visual acuity - <R> Hearing Problems No - <R> [...] 0- Independent with eating - <R> Swallowing nothing - <R> Fall history within No history of falls last six months - <R> Which of the above None functional risks had a recent onset or change? Nutrition/Metabolic Diet Information - Diet Regular Nutrition Risk Screen - <R> Nutrition Risk Screen No risk indicators present Dental Information - Dental Care Receives routine dental care - Dental/Oral Status Teeth intact, good condition - Dentures No Sleep/Relaxation Sleep Pattern - <R> Problems Sleeping No Sexuality-Reproductive Sexuality Concerns - Date of LMP N/A Role Relationships Abuse Risk Screen - <R> QUESTION TO PATIENT: No Are you now or have you ever [...] your life - Major Change/ Loss Illness; Job change Values/Beliefs/Spiritual Care Values/Beliefs/Spiritual Care - <R> Would you like pastoral Contacted:, uatsdin care/clergy/production team advisor notified? Mutuality/Individual Preferences Mutuality/Preferences - <R> What information would nothing help us give you more personalized care? - <R> What if any limitations None on visitors, TV or phone calls would you like Signatures DAHLIA RIVERA (RN)[Signed 25-May-2007 09:06] Authored: General Information, Advance Directive, Health and Illness History, Allergies, Substance Use, Review of Systems, Cognitive Perceptual, Activity- Exercise/Self Care, Nutrition/Metabolic, Sleep/Relaxation, Sexuality- Reproductive, Role Relationships, Coping-Stress Tolerance, Values/Beliefs/Spirit ual Care, Mutuality/Individual Preferences Batool Denis (RN)[Signed 26-May-2007 19:36] Authored: General Information, Role Relationships documented in this encounter Plan of Treatment Not on filedocumented as of this encounter Visit Diagnoses Not on filedocumented in this encounter Care Teams Pathology Collector Relationship Specialty Start Date End Date Agneles Olsen MD PCP - General 02/26/02 08/28/10 System, Provider Not In PCP - General 08/29/10 06/30/13 documented as of this encounter
--- OUTSIDE RECORDS SUMMARY | 2022-04-16 19:41 | XMS_ITS | Encounter Summary ---
:1955 Author Organization [facility] Address [address] [place] [address] Care Team Providers Name Role Phone Angeles Olsen MD Primary Care Provider [phone] System, Provider Not In Primary Care Provider Unavailable Encounter Details Date Type Department Care Team Description 05/26/2007 Historic Results INTERFACED REPORT Shane Jameson MD [address] [place], [place] [address] (Wo rk) Social History Tobacco Use Types Packs/Day Years Used Date Never Smoker Alcohol Use Standard Drinks/Week Comments Yes 0 (1 standard drink = 0.6 oz pure alcoho l) 1 glass of wine per week 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 documented in this encounter Results Histopathology (05/26/2007 12:00 AM CDT) Component Value Ref Test Analysis Performed At [facility] Range Method Time Signature Copath Report CASE: [id number] ^ COPATH Patient Name: VALERI ROJAS MR#: [id number] Specimen #: [id number] Collected: 05/26/2007 Received: 05/26/2007 Reported: 05/28/2007 10:32 Ordering Phy(s): DEISY ABDIRAHMAN SPECIMEN(S): A: Lymph node, sentinel #1, left axilla B: Mastectomy, left C: Breast biopsy, right FINAL DIAGNOSIS: A. ??Lymph node, left axillary/sentinel node, biopsy - No ev idence of malignancy. B. ??Breast, left, simple mastectomy (prophylactic) - 1. ?Areas of stromal fibrosis. 2. ? No evidence of proliferative epithelial lesions, fi brocystic changes, atypia or malignancy. 3. ? Nipple and areola without abnormalities. 4. ? Surgical margins without abnormalities. ? C. ??Nipple-areola complex, right, excision - 1. ?Skin and breast tissue present. 2. ? Foreign body giant cell reaction, fat necrosis and fibrosis. 3. ? Non-proliferative fibrocystic changes. 4. ? No evidence of malignancy. Electronically signed out by: Americo Spears M.D. CLINICAL HISTORY: Right breast cancer. GROSS: A. ??The specimen, labeled left sentinel node #1, consists of a 0.8 cm in diameter, yellow-pink to hemorrhagic soft lymph node. ??T he specimen is submitted in its entirety B. ??The specimen, labeled left breast, consists of 450 gm and 18 cm x 18 cm x 5.5 cm simple mastectomy specimen. ??The anterior ohara rface is covered by an elliptical fragment of skin measuring 9 cm in length by 3.3 cm in width. ??The skin appears without abnormalities. ? ?The nipple and areola are ??3 cm in diameter and appear without abnorma lities. There is a suture attached to the skin and appears to corres pond to the 12:00 area. ??The skin is underlined by lobulated soft yello w fibroadipose tissue.On serial sections, the breast is made o f lobulated yellow soft fibrofatty tissue. ??The retroareolar breast tissue is made of a ling to pink-blue translucent soft membranous ti ssue. ??No localized lesions are identified. ??Kettle Loader sections are submitted. SUMMARY OF SECTIONS: 1. ??Nipple and areola. 2. ??Posterior margin. 3. ??Anterior-inferior surgical margin. 4. ??Anterior-superior surgical margin. 5 and 6. Retroareolar breast tissue. 7 and 8. Inferior outer quadrant. 9 and 10. Superior outer quadrant. 11 and 12. Inferior inner quadrant. 13 and 14. Superior inner quadrant. C. ??The specimen, labeled right nipple-areolar complex, c onsists of an elliptical fragment of skin measuring 9 cm x 4 cm x 1 cm. ?? The nipple and areola are 2 cm in diameter and they display some retrac tion. ??The areola is bordered by a well-healed surgical incision measur ing 8 cm in aggregate length. ??The underlying adipose tissue shows area s of fat necrosis. ??Kettle Loader sections are submitted. ??MGP/kd INTRAOPERATIVE CONSULTATION: FROZEN SECTION DIAGNOSIS: A- Left sentinel node - Negative (MGP). MICROSCOPIC: A. ??Serial sections of the specimen stained with hematoxyli n and eosin, and cytokeratin show one lymph node. ??There is no evidence of malignancy. B and C. ??Microscopic examination was performed. MGP/kd 05-28-07 TESTING LAB LOCATION: [address] ??[id number] COLLECTION SITE: Client: [facility] Location: [facility] (R) Specimen (Source) Anatomical Collection Method Collection Time Re ceived Time Location / / Volume Laterality 05/26/2007 05/28/2007 10:3 2 AM CDT Shane Jameson MD LAB - COPATH SPECIAL DIAG OR DERABLES Performing Organization Address City/State/ZIP Code Phon e Number COPATH documented in this encounter Visit Diagnoses Not on filedocumented in this encounter Care Teams Loan Representative Relationship Specialty Start Date End Date Angeles Olsen MD PCP - General 02/26/02 08/28/10 System, Provider Not In PCP - General 08/29/10 06/30/13 documented as of this encounter
--- OUTSIDE RECORDS SUMMARY | 2022-04-16 19:41 | XMS_ITS | Encounter Summary ---
:1955 Author Organization [place] Address [address] [place] [address] Care Team Providers Name Role Phone Angeles Olsen MD Primary Care Provider [phone] System, Provider Not In Primary Care Provider Unavailable Encounter Details Date Type Department Care Team Description 03/18/2007 Historic Results [facility] Pat Garcia MD [facility] [address] [facility] [address] [address] [phone] Social History Tobacco Use Types Packs/Day Years Used Date Never Smoker Alcohol Use Standard Drinks/Week Comments Yes 0 (1 standard drink = 0.6 oz pure alcoho l) 1 glass of wine per week 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 Date Recorded 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 documented in this encounter Results (ABNORMAL) Hemoglobin (03/18/2007 6:15 AM CDT) P athologist Signature Hemoglobin 8.9 (L) 11.7 - 15.7 [place] g/dL Specimen (Source) Anatomical Collection Method Collection Time Re ceived Time Location / / Volume Laterality 03/18/2007 6:15 AM 7 CDT Lorena Garcia MD LAB - BLOOD ORDERABLES Performing Organization Address City/State/ZIP Code Phon e Number [place] documented in this encounter Visit Diagnoses Not on filedocumented in this encounter Care Teams Salad Counter Attendant Relationship Specialty Start Date End Date Angeles Olsen MD PCP - General 02/26/02 08/28/10 System, Provider Not In PCP - General 08/29/10 06/30/13 documented as of this encounter
--- OUTSIDE RECORDS SUMMARY | 2022-04-16 19:41 | XMS_ITS | Encounter Summary ---
:1955 Author Organization [place] Address [address] [place] [address] Care Team Providers Name Role Phone Angeles Olsen MD Primary Care Provider [phone] Reason for Visit Reason Comments Blood Draw Encounter Details Date Type Department Care Team Description 04/23/2007 Orders Only [facility] Eag an HYPOTHYROIDISM NOS; [address] [place] [address] Social History Tobacco Use Types Packs/Day Years Used Date Never Smoker Alcohol Use Standard Drinks/Week Comments Yes 0 (1 standard drink = 0.6 oz pure alcoho l) 1 glass of wine per week 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 Date Recorded 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 documented in this encounter Results (ABNORMAL) CBC WITH PLATELETS (04/23/2007 1:24 PM CDT) Analysis Performed At [facility] Time Signature WBC 5.2 4.0 - 11.0 [place] 10e9/L [facility] RBC Count 4.15 3.8 - 5.2 [place] 10e12/L [facility] Hemoglobin 11.6 (L) 11.7 - [place] 15.7 g/dL [facility] Hematocrit 37.3 35.0 - [place] 47.0 % [facility] MCV 90 78 - 100 [place] fl [facility] MCH 28.0 26.5 - [place] 33.0 pg [facility] MCHC 31.1 (L) 31.5 - [place] 36.5 g/dL [facility] RDW 14.8 10.0 - [place] 15.0 % [facility] Platelet Count 354 150 - 450 [place] 10e9/L [facility] Specimen Anatomical Collection Method Collection Time Receive d Time (Source) Location / / Volume Laterality 04/23/2007 1:24 PM 7 1:27 CDT PM CDT Vanessa Mills MD LABORATORY Performing Organization Address City/State/[facility] Code Phon e Number [facility] [address] [place] [address] [facility] documented in this encounter Visit Diagnoses Diagnosis Unspecified hypothyroidism Anemia, unspecified documented in this encounter Care Teams Section Laborer Relationship Specialty Start Date End Date Angeles Olsen MD PCP - General 02/26/02 08/28/10 documented as of this encounter
--- OUTSIDE RECORDS SUMMARY | 2022-04-16 19:41 | XMS_ITS | Encounter Summary ---
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 - Can patient name a Yes Surrogate Decision Maker? (Not legally binding) - Surrogate Name: Ed canroycelore - <R> Would you like to No receive information about Advanced Directives? 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 Nutrition/Metabolic Diet Information - Diet weight watchers Nutrition Risk Screen - <R> Nutrition Risk Screen No risk indicators present, 20 # since ben thru weight watchers Sleep/Relaxation Sleep Pattern - <R> Problems Sleeping No Role Relationships Abuse Risk Screen - <R> [...] in your life - Major Change/ Loss Hospitalization; dignosed with [place] Values/Beliefs/Spiritual Care Values/Beliefs/Spiritual Care - <R> Would you like pastoral Does not wish to have anyone contacted care/clergy/coding advisor notified? Mutuality/Individual Preferences Mutuality/Preferences - <R> What information would likes door to keep thing quiet help us give you more personalized care? - <R> What if any limitations None on visitors, TV or phone calls would you like Radha Hope (RN) Authored: Advance Directive, Valuables, Health and Illness History, Substance Use, Review of Systems, Cognitive Perceptual, Activity-Exercise/Self Care, Nutrition/Metabolic, Sleep/Relaxation, Role Relationships, Coping-Stress Tolerance, Values/Beliefs/Spiritual Care, Mutuality/Individual Preferences Tiffanie Gomes (LORI) Authored: General Information Interface, Computing Tutor - 11/05/2010 12:06 PM CDT MD Notification - Notified Person:: MD - Notified Persons Name: Dr. Duggan - Notification Time:: 17-Mar-2007 04:10 - Notification Interaction:: Talked with Physician - Purpose of notification:: Changes in vital signs - Orders received?: Yes - Comments:: pts BP low and HR in the 40s at 0400. pt alert and oriented. pt had recieved compazine 5 mg IV at 0230 for nausea and felt warm and dizzy then but not know. pt also had 300 ml out of KRISTY at 0100 when drain was leaking at insertion site. doctor called and updated. pt had already had 600 ml out of clear yellow urine. doctor ordered stat EKG and pt to be sent to tele, pt also given 500 ml bolus. patients called and informed of pts status and room changed. Tiffanie Cabrales (RN) Authored: MD Notification Interface, Computing Tutor - 11/05/2010 12:05 PM CDT Patient Status Patient Status - Physical status Stable (s/s of potential complications absent or manageable) - Psychosocial status Stable Discharge Planning - Discharge From: [facility] - Patient Care Unit: MS 2 - PCU Phone Number: [phone] - Discharge To: Home/Alternative home - Phone number after [phone] discharge: - Method of discharge: Wheel Chair - Transportation: Private Discharge Information Discharge Information - Discharge information Discharge instructions reviewed with pt/family/so - Accompanied by Spouse - Mode of Travel Wheelchair Medications and Prescriptions Medications and Prescriptions - Medications and Prescriptions are needed Prescriptions Prescriptions sent to pharmacy Prescriptions given to patient TYLENOL #3 1-2 TABLETS EVRY 4-6 HOURS NEED FOR PAIN. KEFLEX 1 CAPSULE THREE TIMES A DAY. Special Care Needs and Instructions - Diet Instructions: TOLERATED - Activity Instructions: TOLERATED , NO HEAVY LIFTING UNTIL OK WITH MD - Report temp if greater 101 degrees F than: - Signs or symptoms to call PAIN NOT CONTROLLED BY PAIN MEDICATIONS the physician: GREEN OR PUSSY DRAINAGE COMING FROM INCISION OR IN DRAIN - Who patient should call: DR. GARY - Phone number of who patient [phone] should call: Follow Up Care - Physician name: DR. GARY - When to see physician: NEXT WEEK, SOONER IF KRISTY OUTPUT LESS THAN 30 CC IN 24 HOURS Other Instructions - Other Instructions: EMPTY DRAIN EVERY EIGHT HOURS OR MORE OFTEN IF NEEDED STRIP DRAIN AT LEAST FOUR TIMES A DAY AND MORE OFTEN IF YOU SEE CLOTS KEEP ELBOW BELOW SHOULDER UNTIL KRISTY OUT KEEP DRAIN SITE DRY WHEN SHOWERING Signatures MARIA GUADALUPE PHILLIPS (RN) Authored: Patient Status, Discharge Planning, Discharge Information ARABELLA RICHARDS (RN) Authored: Discharge Planning, Medications and Prescriptions, Special Care Needs and Instructions, Follow Up Care, Other Instructions documented in this encounter Plan of Treatment Not on filedocumented as of this encounter Visit Diagnoses Not on filedocumented in this encounter Care Teams Shipping Support Relationship Specialty Start Date End Date Angeles Olsen MD PCP - General 02/26/02 08/28/10 System, Provider Not In PCP - General 08/29/10 06/30/13 documented as of this encounter
--- OUTSIDE RECORDS SUMMARY | 2022-04-16 19:41 | XMS_ITS | Encounter Summary ---
:1955 Author Organization [place] Address [address] [place] [address]. 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 documented in this encounter Results DIAGNOSTIC IMAGING AGENT (05/26/2007 11:18 AM CDT) [facility] Method Time Signature IMAGECAST RADIOLOGY RESULT LEFT BREAST SENTINEL LYMPH NODE INJECTION 05/26/2007 RESULTS REASON FOR EXAM: History of right breast cancer. Undergoing prophylactic left mastectomy. FINDINGS: The left breast was cleansed with alcohol. 834 uCi technetium 99m labeled filtered sulfur colloid was injected at the areolar margin. There were no complications. Specimen (Source) Anatomical Collection Method Collection Time Re ceived Time Location / / Volume Laterality 05/26/2007 11:18 AM CDT Shane Jameson MD GENERAL SUPPLIES Performing Organization Address City/State/ZIP Code Phon e Number RADIOLOGY RESULTS documented in this encounter Visit Diagnoses Not on filedocumented in this encounter Care Teams Chemistry Research Assistant Relationship Specialty Start Date End Date Angeles Olsen MD PCP - General 02/26/02 08/28/10 documented as of this encounter
--- OUTSIDE RECORDS SUMMARY | 2022-04-16 19:41 | XMS_ITS | Encounter Summary ---
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 documented in this encounter Results RT DUPLEX EXTREM VENOUS,UNI OR LTD (04/06/2007 12:00 PM CDT) Specimen (Source) Anatomical Collection Method Collection Time Re ceived Time Location / / Volume Laterality 04/06/2007 12:00 PM CDT Impressions RADIOLOGY RESULTS - 04/06/2007 12:42 PM CDT EXAM: ??US VENOUS LOWER EXTEMITY UNI RIG HT HISTORY: ??Leg swelling FINDINGS: Negative. ??No evidence for DV T. Shane Jameson MD SPECIAL IMAGING STUDIES Performing Organization Address City/State/ZIP Code Phon e Number RADIOLOGY RESULTS documented in this encounter Visit Diagnoses Not on filedocumented in this encounter Care Teams Insulation Inspector Relationship Specialty Start Date End Date Angeles Olsen MD PCP - General 02/26/02 08/28/10 documented as of this encounter
--- OUTSIDE RECORDS SUMMARY | 2022-04-16 19:41 | XMS_ITS | Encounter Summary ---
:1955 Author Organization [place] Address [address] [place] [address] Care Team Providers Name Role Phone Angeles Olsen MD Primary Care Provider [phone] Encounter Details Date Type Department Care Team Description 03/16/2007 Operative Report Isaura Gary MD (Public Address Technician) [address] [place], [place] [address] (Wo rk) Social History Tobacco Use Types Packs/Day Years Used Date Never Smoker Alcohol Use Standard Drinks/Week Comments Yes 0 (1 standard drink = 0.6 oz pure alcoho l) 1 glass of wine per week 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 Date Recorded 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 POSTOPERATIVE DIAGNOSIS: Right breast DCIS. PROCEDURE: Right breast mastectomy (nipple sparing) with right breast sentinel node injection, mapping and excision. SURGEON: Isaura Gary MD ANESTHETIC: General. BLOOD LOSS: Less than 50. PREOPERATIVE MEDICATION: Ancef 1 g IV. INDICATION: The patient is a 52-year-old female who was found to have calcifications in the right breast. 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 We discussed methods of treatment including lumpectomy with radiation versus mastectomy, sentinel node excision versus axillary node dis section. We discussed multiple aspects of these treatment options and she has consulted with oncology as well. She has chosen mastectomy in an effort to avoid radiation therapy and understands that mastectomy is not necessary for treatment of this disease process (lumpectomy would probably be adequate). MRI scan has been performed and shows no additional disease within the breast. She seems to understand the options and issues in and was quite confident in her decision to have mastectomy performed and avoid radiation therapy. She further requests nipple sparing mastectomy and we discussed the potential for recurrence in the nipple and subareolar tissues. She understands this risk and we will perform frozen section on the subareolar tissues, and if positive, immediate nipple resection would be performed. She understands there is a possibility of late positive results, in which case, nipple resection will be performed at a later date (presumably at the time of reconstructive surgery). The patientwas interested a delayed reconstruction and requests that no effort be made to tighten or trim the skin flaps to avoid redundancy, folding or wrinkling of the skin. She understands that with this approach, the immediate postmastectomy cosmetic result will be suboptimal but she hopes that the eventual post- reconstruction results will be superior by taking this approach. We also discussed sentinel node biopsy, including the potential for false negative results. Both she and her family seemed to understand these issues well. These discussions were carried out with the patient initially the office and again at a later date on the phone and again prior to surgery with her and two friends in attendance. She seems to understand the proposed procedure well, including its impact on post-surgical therapy. DESCRIPTION OF PROCEDURE: The patient was brought to the operating room, placed supine on the table, and after induction of general anesthetic, the right breast was prepped and draped in sterile manner. Prior to prepping and draping, alcohol swab was used to prep the areola and injection was performed with methylene blue. This injection was kept deep enough to avoid any potential for dermal necrosis. Sterile prep and drape were then performed. The hot region of the axilla was easily identified with the Neoprobe. An incision was performed to parallel the areolar margin inferiorly and extended up toward the axilla. This lateral extension was partially treated as an ellipse, which could resect the needle biopsy site. The incision was created laterally, flaps were developed, and with the aid of the Neoprobe, we dissected toward the sentinel node. In the lower axilla, sentinel node was identified and removed. An adjacent node also had some counts and was removed as well. Rescanning in the axilla revealed counts of less than 2, while first sentinel node had counts of 1100 and the second of 50. These nodes were both sent to pathology for frozen section. While awaiting the results, we developed the skin flaps in all directions. Upon dissecting beneath the areola, suture was placed in this region to orient pathology. We continued dissection to the periphery of the breast in all directions. We dissected around the perforators medially in an effort to preserve blood supply to the superior flap as much as possible. Once the flaps were developed in all directions, the breast was removed from the pectoralis muscle and chest wall. A suture was placed at the 12 o'clock position, again, to orient pathology. The operative site was carefully inspected and hemostasis was complete. Pathology reported that the sentinel nodes were both negative for disease. We began our closure after placing an On-Q pump medially and a 15 round Nilson-Herrera drain laterally. Subcutaneous tissues were closed with 3-0 Vicryl, skin with 4-0 Vicryl. Pathology reported that the subareolar tissue was also negative for disease. Steri-Strips were applied followed by sterile dressings and tape. No compressive dressings were applied. At the time of closure, the areola appeared to have slowed capillary refill but was viable. Shewaronnie then returned to the recovery room in excellent condition with all sponge and needle counts correct. Electronically signed on 04/22/2007 14:56 by ISAURA GARY MD MT: [id number] Name: VALERI ROJAS Account: [id number] : 1955 Procedure Date: 03/16/2007 Document: [id number] documented in this encounter Plan of Treatment Not on filedocumented as of this encounter Visit Diagnoses Not on filedocumented in this encounter Care Teams Compressed Gas Equipment Mechanic Relationship Specialty Start Date End Date Angeles Olsen MD PCP - General 02/26/02 08/28/10 documented as of this encounter
--- OUTSIDE RECORDS SUMMARY | 2022-04-16 19:41 | XMS_ITS | Encounter Summary ---
:1955 Author Organization [facility] Address [address] [place] [address]. [place] [address] Care Team Providers Name Role Phone Angeles Olsen MD Primary Care Provider [phone] Encounter Details Date Type Department Care Team Description 05/26/2007 Operative Report Melissa Gama MD (Study Specialist) 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 Surgical absence, left breast. 2. History of right breast cancer status post subcutaneous mastectomy. POSTOPERATIVE DIAGNOSIS: 1. Surgical absence, left breast. 2. History of right breast cancer status post subcutaneous mastectomy. PROCEDURE: 1. Placement of bilateral tissue expanders. 2. Completion right mastectomy with excision of the nipple areolar complex. DESCRIPTION OF PROCEDURE: The patient was marked for incisions and taken to the operating room withDr. Jameson. He completed the mastectomy on the left side and then tissue expanders were placed on the left side. An incision was made along the lateral aspect of the pectoralis muscle and a subpectoralpocket was developed. Dissection was carried down to the level of the inframammary fold. The fascia overlying the serratus was elevated. Hemostasis was achieved. The pocket was irrigated with antibiotic solution. A tissue information systems security analyst was made ready for insertion and placed within the pocket. The pectoralis muscle was approximated to the serratus fascia using interrupted 3-0 Monocryl suture. The serratusfascia was somewhat attenuated but the inferior aspect of the tissue information systems security analyst was able to be covered. A 15 Liberian KRISTY drain was placed and secured with a 2-0 nylon suture. The skin incision was closed with interrupted 3-0 Monocryl in the subcutaneous tissue followed by running 4-0 subcuticular Monocrylsuture. The tissue information systems security analyst was filled with 50 cc of saline. On the right side, an elliptical incision was made around the retained nipple areolar complex. Dissection was carried down to the underlying chest wall. The specimen was removed, was dissected free using electrocautery. Hemostasis was achieved. This tissue was sent to pathology. An incision was made along the lateral aspect of the pectoralis muscle and the subpectoral pocket was developed. There wasa great deal of scarring from her previous surgery, making this dissection somewhat difficult. Dissection was carried down to the level of the inframammary fold. Hemostasis was achieved. The fascia overlying the serratus was elevated. The pocket was irrigated with antibiotic solution. A tissue information systems security analyst was made ready for insertion and placed within the pocket. The pectoralis muscle was approximated to the serratus fascia using interrupted 3-0 Monocryl suture. A 15 Liberian KRISTY drain was placed and secured with a 2-0 nylon suture. The skin incision was closed with interrupted 3-0 Monocryl in the subcutaneous tissue followed by running 4-0 subcuticular Monocryl suture. Xeroform followed by light dressing was applied. The patient was circumferentially wrapped with double 4 inch Jeremi bandage. The patient has Inamed tissue expanders in place, reference #133FV-13. On the right side it is serial #[id number]. On the left side, it is serial #[id number]. Both tissue expanders are 500 cc and they have both been filled with 50 cc of saline. Electronically signed on 06/04/2007 07:32 by KAYLAH GAMA MD MT: [id number] Name: VALERI ROJAS Account: [id number] : 1955 Procedure Date: 05/26/2007 Document: [id number] Kaylah Gama MD - 06/01/2007 2:02 PM CDT PRELIMINARY PREOPERATIVE DIAGNOSIS: 1. Surgical absence, left breast. 2. History of right breast cancer status post subcutaneous mastectomy. POSTOPERATIVE DIAGNOSIS: 1. Surgical absence, left breast. 2. History of right breast cancer status post subcutaneous mastectomy. PROCEDURE: 1. Placement of bilateral tissue expanders. 2. Completion right mastectomy with excision of the nipple areolar complex. DESCRIPTION OF PROCEDURE: The patient was marked for incisions and taken to the operating room withDr. Jameson. He completed the mastectomy on the left side and then tissue expanders were placed on the left side. An incision was made along the lateral aspect of the pectoralis muscle and a subpectoralpocket was developed. Dissection was carried down to the level of the inframammary fold. The fascia overlying the serratus was elevated. Hemostasis was achieved. The pocket was irrigated with antibiotic solution. A tissue information systems security analyst was made ready for insertion and placed within the pocket. The pectoralis muscle was approximated to the serratus fascia using interrupted 3-0 Monocryl suture. The serratusfascia was somewhat attenuated but the inferior aspect of the tissue information systems security analyst was able to be covered. A 15 Liberian KRISTY drain was placed and secured with a 2-0 nylon suture. The skin incision was closed with interrupted 3-0 Monocryl in the subcutaneous tissue followed by running 4-0 subcuticular Monocrylsuture. The tissue information systems security analyst was filled with 50 cc of saline. On the right side, an elliptical incision was made around the retained nipple areolar complex. Dissection was carried down to the underlying chest wall. The specimen was removed, was dissected free using electrocautery. Hemostasis was achieved. This tissue was sent to pathology. An incision was made along the lateral aspect of the pectoralis muscle and the subpectoral pocket was developed. There wasa great deal of scarring from her previous surgery, making this dissection somewhat difficult. Dissection was carried down to the level of the inframammary fold. Hemostasis was achieved. The fascia overlying the serratus was elevated. The pocket was irrigated with antibiotic solution. A tissue information systems security analyst was made ready for insertion and placed within the pocket. The pectoralis muscle was approximated to the serratus fascia using interrupted 3-0 Monocryl suture. A 15 Liberian KRISTY drain was placed and secured with a 2-0 nylon suture. The skin incision was closed with interrupted 3-0 Monocryl in the subcutaneous tissue followed by running 4-0 subcuticular Monocryl suture. Xeroform followed by light dressing was applied. The patient was circumferentially wrapped with double 4 inch Jeremi bandage. The patient has Inamed tissue expanders in place, reference #[id number]. On the right side it is serial #[id number]. On the left side, it is serial #[id number]. Both tissue expanders are 500 cc and they have both been filled with 50 cc of saline. KAYLAH GAMA MD MT: #[id number] Name: VALERI ROJAS Account: [id number] : 1955 Procedure Date: 05/26/2007 Document: [id number] documented in this encounter Plan of Treatment Not on filedocumented as of this encounter Visit Diagnoses Not on filedocumented in this encounter Care Teams Equipment Cleaner Relationship Specialty Start Date End Date Angeles Olsen MD PCP - General 02/26/02 08/28/10 documented as of this encounter
--- OUTSIDE RECORDS SUMMARY | 2022-04-16 19:41 | XMS_ITS | Encounter Summary ---
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 documented in this encounter Results EKG 12 LEAD (03/17/2007 4:29 AM CDT) Component Value Ref Range Test Analysis Performed Pathologis t Method Time At Signature Ventricular Rate 53 BPM RADIOLOGY RESULTS Atrial Rate 53 BPM RADIOLOGY RESULTS AK Interval 170 ms RADIOLOGY RESULTS QRS Duration 76 ms RADIOLOGY RESULTS QT 486 ms RADIOLOGY RESULTS QTc 456 ms RADIOLOGY RESULTS P [place] 58 degrees RADIOLOGY RESULTS R AXIS 57 degrees RADIOLOGY RESULTS T [place] 44 degrees RADIOLOGY RESULTS Interpretation Sinus bradycardia RADIOLO GY ECG Otherwise normal ECG RESULTS Unconfirmed report - interpretation of this ECG is compute r generated - see medical record for final interpretation Specimen Anatomical Collection Method Collection Time Receive d Time (Source) Location / / Volume Laterality 03/17/2007 4:29 AM 7 CDT 11:18 AM CDT Transcripton Interface ECG ORDERABLES Performing Organization Address City/State/ZIP Code Phon e Number RADIOLOGY RESULTS documented in this encounter Visit Diagnoses Not on filedocumented in this encounter Care Teams Anthropology Lecturer Relationship Specialty Start Date End Date Angeles Olsen MD PCP - General 02/26/02 08/28/10 System, Provider Not In PCP - General 08/29/10 06/30/13 documented as of this encounter
--- OUTSIDE RECORDS SUMMARY | 2022-04-16 19:41 | XMS_ITS | Encounter Summary ---
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 SURGICAL INDICATIONS: This is a 52-year-old female found to have calcifications in the right breast. 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 Multiple treatment options were discussed with the patient and she has decided to continue with plan for right breast mastectomy (nipple sparing)with right sentinel node procedure. The patient underwent this procedure on 03/16/2007 under general anesthesia with estimated blood loss of 50 cc. KRISTY drain was placed. The patient tolerated the procedure well and was transferred to recovery in stable condition. POSTOPERATIVE COURSE: The patient was started on appropriate pain management therapy overnight. After surgery she had high output from the KRISTY site as well as leaking around the KRISTY drain itself. The site was positive for moderate hematoma with gross blood from the KRISTY with inability to evacuate this byuse of a KRISTY only. Hemoglobin was noted to be 10.9 (preop was 14.4). The patient was scheduled for evacuation of hematoma, which was completed at 0845 on 03/17/2007. This was done under general anesthesia with estimated blood loss of 300 cc. (This is the amount of blood from the evacuated hematoma itself.) Intraoperatively, several sites of slight oozing were coagulated debridement of part of the flap was completed with removal of the hematoma. The patient was followed by internal medicine during her hospital course due to bradycardia and lowblood pressures as well as her anemia, also hypothyroidism. On 03/18, her hemoglobin was noted to be 8.9. KRISTY output 30 cc per 8 hours. The patient was able to advance diet and activity on 03/18/2007, was followed by internal medicine, with only change of medication of adding Senokot for treatment of constipation but otherwise, bradycardia had returned to baseline and patient was otherwise stable. On 03/19/2007, patient was cleared for discharge to home. KRISTY output 35 cc per 8 hours. The drain was planned to be removed in the next 5-10 days as per usual after mastectomy, and patient was cleared for discharge on 03/19/2007 by internal medicine and general surgery. The patient was given discharge instruction as to care of the KRISTY site and monitoring of the KRISTY output. She was to return to Dr. Gary's office when the output was less than 30 cc per day. She was, otherwise, recommended to call his office prior to that point if she had other questions or concerns. She was given instruction regarding use of pain medication, including Tylenol #3 as needed for pain. Electronically signed on 04/22/2007 15:41 by ISAURA GARY MD As dictated by AMEYA SAENZ PA-C MT: [id number] Name: VALERI ROJAS Account: [id number] : 1955 Admit Date: [id number] Discharge Date: 03/19/2007 Document: [id number] cc: Vanessa Mills MD documented in this encounter Plan of Treatment Not on filedocumented as of this encounter Visit Diagnoses Not on filedocumented in this encounter Care Teams Shredded Filler Hopper Feeder Relationship Specialty Start Date End Date Angeles Olsen MD PCP - General 02/26/02 08/28/10 documented as of this encounter
--- OUTSIDE RECORDS SUMMARY | 2022-04-16 19:41 | XMS_ITS | Encounter Summary ---
:1955 Author Organization [facility] Address [address] [place] [address]. [place] [address] Care Team Providers Name Role Phone Angeles Olsen MD Primary Care Provider [phone] Reason for Referral Specialty Diagnoses / Procedures Referred By Contact Refer red To Contact Vanessa Mills se, MD [address] [place], [place] [address] Referral ID Status Reason Start Date Expiration Date Visits Requ ested Visits Authorized Encounter Details Date Type Department Care Team Description 03/25/2007 Orders Only [facility] Eag an Vanessa Mills DIAGNOSIS NOT YET [address] [facility] Maria Antonia Mendez MD DEFINED (Primary Dx) FABIO Marquez [id number] [place] [address] A [phone] [place] [address] Social History Tobacco Use Types Packs/Day Years Used Date Never Smoker Alcohol Use Standard Drinks/Week Comments Yes 0 (1 standard drink = 0.6 oz pure alcoho l) 1 glass of wine per week 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 Date Recorded 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 Vanessa Mills MD REFERRAL documented in this encounter Visit Diagnoses Diagnosis DIAGNOSIS NOT YET DEFINED - Primary documented in this encounter Care Teams Cemetery Warden Relationship Specialty Start Date End Date Angeles Olsen MD PCP - General 02/26/02 08/28/10 documented as of this encounter
--- OUTSIDE RECORDS SUMMARY | 2022-04-16 19:41 | XMS_ITS | Encounter Summary ---
:1955 Author Organization [facility] Address [address] [place] [address]. 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 Patient is coping well with diagnosis of breast cancer and feels confident that everything will wrap turner fine. Patient is receiving strong family support and mormonism support from her sikh, [facility]. Patient is active in oriental orthodox and feels God has blessed her and her family. Patient was in good spirits and is looking forward to being discharged tomorrow. Reducer offered prayer per PT request. Reducer will follow-up with patient as necessary. [Signature] Author:VAN HALL (Reducer Delivery And Installation Subcontractor) [Signed 18-Mar-2007 11:28] Interface, Commercial Pest Control Representative - 11/05/2010 12:00 PM CDT Pt educated on KRISTY drain: what it is for, how to empty it, how to strip the tube. Pt educated to measure and record output. Pt given KRISTY drain handout. Pt verbalized understanding. [Signature] Author:Jocelin Calloway (RN) [Signed 18-Mar-2007 17:55] documented in this encounter Plan of Treatment Not on filedocumented as of this encounter Visit Diagnoses Not on filedocumented in this encounter Care Teams Sole Scraper Relationship Specialty Start Date End Date Angeles Olsen MD PCP - General 02/26/02 08/28/10 System, Provider Not In PCP - General 08/29/10 06/30/13 documented as of this encounter
--- OUTSIDE RECORDS SUMMARY | 2022-04-16 19:41 | XMS_ITS | Encounter Summary ---
:1955 Author Organization [facility] Address [address] [place] [address] Care Team Providers Name Role Phone Angeles Olsen MD Primary Care Provider [phone] System, Provider Not In Primary Care Provider Unavailable Encounter Details Date Type Department Care Team Description 03/16/2007 Historic Results INTERFACED REPORT Isaura Gary MD [address] [facility] [address] [place], [place] [address] (Wo rk) Social History Tobacco Use Types Packs/Day Years Used Date Never Smoker Alcohol Use Standard Drinks/Week Comments Yes 0 (1 standard drink = 0.6 oz pure alcoho l) 1 glass of wine per week 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 Date Recorded 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 documented in this encounter Results Histopathology (03/16/2007 12:00 AM CDT) Component Value Ref Test Analysis Performed Pathologis t Range Method Time At Signature Copath CASE: [id number] ^ COPATH Report Patient Name: VALERI ROJAS MR#: [id number] Specimen #: [id number] Collected: 03/16/2007 Received: 03/16/2007 Reported: 03/17/2007 17:48 Ordering Phy(s): ISAURA GARY ORIGINAL REPORT FOLLOWS ADDENDUM ADDENDUM TO ORIGINAL REPORT Status: Signed Out Date Ordered:03/27/2007 Date Complete:03/27/2007 Date Reported:03/27/2007 07:56 Signed Out By: Americo Spears M.D. INTERPRETATION: C. ??Immunohistochemical stains for estrogen and progesteron e receptors were obtained as requested by Dr. Ward Cary. ??A small foc us of high grade ductal carcinoma in-situ was identified. IMMUNOHISTOCHEMICAL ANALYSIS FOR ESTROGEN AND PROGESTERONE R ECEPTORS: RESULTS: ? ESTROGEN RECEPTORS: ?NEGATIVE(0% of tumo r cells stain positive. ??A few residual non-neoplastic intraductal and in tralobular cells stain positive.) PROGESTERONE RECEPTORS: ? NEGATIVE ? (0% of tumor ce lls stain positive) Methodology: ??Immunohistochemical test for estrogen recepto rs utilizes a predilute monoclonal antibody clone [id number] and for progesteron e receptors, a predilute monoclonal antibody clone [id number]. ??Both assays use heat retrieval and an automatic immunostainer. ??Appropriate posi tive and negative controls are used. ??Both assays are performed on p araffin embedded, formalin-fixed tissue and alcohol fixed smears. Classification: ??The reporting format for estrogen is based on a three-tiered categorization, including negative (0% positive ly stained tumor nuclei), low positive (1-9% positively stained nuclei) and positive (10-100% positively stained nuclei). ??The three-ti ered categorization for estrogen reporting is supported by the In [facility] Breast Cancer Study Group and by consensus statements from t College of [place] Pathologists and the [place] Society of Clinica l Oncology. The National Institutes of Health (NIH) Consensus Statement on Adjuvant Therapy for Breast Cancer states that any degree of ER nucle ar staining detected by immunohistochemistry should be considered a posi tive result. A standard reporting format has not been proposed for proge sterone receptors and the ER reporting format is also used for OK re porting. References: Adjuvant Therapy for Breast Cancer. ??NIH Consensus Statemen t. 2000;17:1-35. ERNESTO Null and Franny Duarte. ??Estrogen receptor analysis for kali ast cancer. Current issues and keys to increasing testing accuracy, Adv Earnestine Pathol 2005;12:10-19. INEZ Delarosa, et al. ??Prognosticfactors in breast cancer . ??College of [place] Pathologists Consensus Statement 1998. ??Arch [facility] Lab Med. 2000;124:966-978. Khalif Jade et al. ??Meeting highlights: ??International Consensus Panel on the Treatment of Primary Breast Cancer. ??Seventh I ernational Conference on Adjuvant Therapy for Primary Breast Cancer. ?? J Clin Oncol. 2001;19:7972-3082. Ronak Casillas. ??Better assays needed for hormone receptor statu s, experts say. ??J Natl Cancer Inst. 2001;93:579-580. MGP/kirill DT/03-27-07 ORIGINAL REPORT: SPECIMEN(S): A: Lymph node, sentinel, #1, right B: Lymph node, sentinel, #2, right C: Breast mastectomy, simple, right FINAL DIAGNOSIS: A. ??Lymph node, right axillary/sentinel node #1, biopsy - N o evidence of malignancy. B. ??Lymph node, right axillary/sentinel node #2, biopsy - N o evidence of malignancy. C. ??Breast, right, nipple sparing mastectomy - 1. ?Ductal carcinoma in-situ, high nuclear gr sugar, extending to adjacent lobules, single focus of 1 mm in diameter. 2. ? No evidence of invasive malignancy. 3. ? Anterior and posterior surgical margins free of pippa or involvement. ??Ductal carcinoma in-situ at 11 mm from anteri or margin. 4. ??Changes of previous biopsy site with hematoma. 5. ? Subareolar region without evidence of malignancy. 6. ? Skin without abnormalities. Electronically signed out by: Americo Spears M.D. CLINICAL HISTORY: Right breast cancer. GROSS: A. ??The specimen, labeled right sentinel node #1, consist s of a 1 cm in diameter ling to pink to hemorrhagic soft lymph node. ??Th e specimen is submitted in its entirety. B. ??The specimen, labeled right sentinel node #2, consist s of a 1 cm in diameter ling to pink to hemorrhagic soft lymph node. ??Th e specimen is submitted in its entirety. C. ??The specimen, labeled right breast, consists of a 355 gm nipple sparing simple mastectomy. ??It measures 18.5 cm x 14 cm x 2 .5 cm.The anterior aspect contains an elliptical fragment of skin nargis uring 4 cm in length by 0.5 cm in width. ??Adjacent to the skin, there is an area of blue dye and indurated tissue. ??A small suture schneider the ohara bareolar region and a long suture marksthe 12:00 area. ??On serial se ctions, the specimen is made of lobulated yellow soft fibrofatty tissue. ??Superior to the subareolar region, there is a previous biopsy site. ? ?It is indurated and hemorrhagic. ??This area measures approximatel y 2 cm in maximum diameter. ??The previous biopsy site is at 0.4 cm fr om the anterior margin and 1.5 cm from the posterior margin. ??No o ther lesions are identified. ??Bacteriologist Pharmaceutical sections are submitted. SUMMARY OF SECTIONS: 1. ??Subareolar region, frozensection. 2. ??Skin. 3. ??Additional section of subareolar region. 4 through 7. ??Serial sections of biopsy site with anterior margin. 8 and 9. ??Posterior margin. 10 through 17. ??Additional sections of breast tissue. MGP/kd INTRAOPERATIVE CONSULTATION: FROZEN SECTION DIAGNOSIS: A. ??Right sentinel node #1 - Negative (MGP). B. ??Right sentinel node #2 - Negative (MGP). MICROSCOPIC: A. ??Serial sections of the specimen stained with hematoxyli n and eosin and cytokeratin show one lymph node. ??There is no evidence of malignancy. B. ??Serial sections of the specimen stained with hematoxyli n and eosin and cytokeratin show one lymph node. ??There is no evidence of malignancy. C. ??Microscopic examination was performed. MGP/kd 03-17-07 TESTING LAB LOCATION: [address] ??[phone] COLLECTION SITE: Client: [facility] Location: SDS (R) Specimen (Source) Anatomical Collection Method Collection Time Re ceived Time Location / / Volume Laterality 03/16/2007 03/17/2007 5:48 PM CDT Isaura Gary MD LAB - COPATH SPECIAL DIAG OR DERABLES Performing Organization Address City/State/ZIP Code Phon e Number COPATH documented in this encounter Visit Diagnoses Not on filedocumented in this encounter Care Teams E Mail System Administrator Relationship Specialty Start Date End Date Angeles Olsen MD PCP - General 02/26/02 08/28/10 System, Provider Not In PCP - General 08/29/10 06/30/13 documented as of this encounter
--- OUTSIDE RECORDS SUMMARY | 2022-04-16 19:41 | XMS_ITS | Encounter Summary ---
:1955 Author Organization [facility] Address [address] [place] [address] Care Team Providers Name Role Phone Angeles Olsen MD Primary Care Provider [phone] System, Provider Not In Primary Care Provider Unavailable Encounter Details Date Type Department Care Team Description 03/17/2007 Historic Results [facility] Abbey Osborne MD [address] [address] [address] Floor, Clinic [address] [facility] [place] [address] Social History Tobacco Use Types Packs/Day Years Used Date Never Smoker Alcohol Use Standard Drinks/Week Comments Yes 0 (1 standard drink = 0.6 oz pure alcoho l) 1 glass of wine per week 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 Date Recorded 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 HISTOPATHOLOGY Routine 03/17/2007 12:00 AM Result s for this CDT procedure are i n the results section . documented in this encounter Results (ABNORMAL) Hemoglobin (03/17/2007 5:22 AM CDT) P athologist Signature Hemoglobin 10.9 (L) 11.7 - 15.7 MISYS g/dL Specimen Anatomical Collection Method Collection Time Receive d Time (Source) Location / / Volume Laterality 03/17/2007 5:22 AM 7 5:18 CDT AM CDT Andrade Osborne MD LAB - BLOOD ORDERABLES Performing Organization Address City/State/ZIP Code Phon e Number MISYS Histopathology (03/17/2007 12:00 AM CDT) Component Value Ref Test Analysis Performed At [facility] gist Range Method Time Signature Copath Report CASE: [id number] ^ COPATH Patient Name: VALERI ROJAS MR#: [id number] Specimen #: [id number] Collected: 03/17/2007 Received: 03/17/2007 Reported: 03/18/2007 13:47 Ordering Phy(s): LORENA HANNA Additional Phy(s): ISAURA GARY SPECIMEN(S): Debrided hematoma site, post right mastectomy FINAL DIAGNOSIS: Debrided tissue from right breast hematoma site - Fibroadipo se and breast tissue with hemorrhage consistent hematoma site. ??No evidence of malignancy. Electronically signed out by: Carson Kapoor M.D. CLINICAL HISTORY: Post right mastectomy. ??Here for evacuation of hematoma. GROSS: The specimen is labeled debrided hematoma site and it cons ists of multiple fragments of soft yellow to reddish tissue(approxim ately 10 fragments) aggregating to 7.5 x 5 x 1.5 cm. ??Sectioning rev ealed soft yellow to focally avila wispy fibrotic tissue with areas of o verlying clot measuring up to 0.9 cm in thickness. ??No solid mass or suspicious lesions are identified. ??Plate Preparer is submitted in thr ee blocks. Rowena MICROSCOPIC: There is fibroadipose tissue with areas of fibrin and hemorr satish consistent with hematoma site. ??Some of the septal areas co ntain breast duct and lobules without proliferative change, ductal carcin nata in situ, or invasive malignancy. Rowena 03-18-07 TESTING LAB LOCATION: [address] ??[phone] COLLECTION SITE: Client: [facility] Location: MS1 (R) Specimen (Source) Anatomical Collection Method Collection Time Re ceived Time Location / / Volume Laterality 03/17/2007 03/18/2007 1:48 PM CDT Lorena Hanna MD LAB - COPATH SPECIAL DIAG OR DERABLES Performing Organization Address City/State/ZIP Code Phon e Number COPATH documented in this encounter Visit Diagnoses Not on filedocumented in this encounter Care Teams Vacuum Tester Cans Relationship Specialty Start Date End Date Angeles Olsen MD PCP - General 02/26/02 08/28/10 System, Provider Not In PCP - General 08/29/10 06/30/13 documented as of this encounter
--- OUTSIDE RECORDS SUMMARY | 2022-04-16 19:41 | XMS_ITS | Encounter Summary ---
:1955 Author Organization [facility] Address [address] [place] [address]. [place] [address] Care Team Providers Name Role Phone Angeles Olsen MD Primary Care Provider [phone] Reason for Referral Consultation (Routine) - Closed Specialty Diagnoses / Procedures Referred By Contact Refer red To Contact Diagnoses Unspecified hypothyroidism Getachew Mills [facility] [address] [place] [address] [address] [place] [address] Fax: Referral ID Status Reason Start Date Expiration Date Visits Requ ested Visits Authorized [id number] Closed 05/22/2007 08/17/2011 1 1 Reason for Visit Reason Comments Pre-Op Exam Encounter Details Date Type Department Care Team Description 05/19/2007 Office Visit [facility] Getachew Mills PREOP EXA M OTHER SPECIFIED (Primary Dx); Alma Mendez MD HYPOTHYROIDISM NOS; [address] [facility] ELEV BL PRES W/O HYPERTN FABIO Marquez [address] A [phone] [place] [address] Social History Tobacco Use Types Packs/Day Years Used Date Never Smoker Alcohol Use Standard Drinks/Week Comments Yes 0 (1 standard drink = 0.6 oz pure alcoho l) 1 glass of wine per week 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 Date Recorded 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 Last Filed Vital Signs Vital Sign Reading Time Taken Comments Blood Pressure 142/92 05/19/2007 9:00 AM CDT Pulse 80 05/19/2007 9:00 AM CDT Temperature - - Respiratory Rate - - Oxygen Saturation - - Inhaled Oxygen Concentration - - Weight 81.6 kg (180 lb) 05/19/2007 9:00 AM CDT Height 163.8 cm (5' 4.5) 05/19/2007 9:00 AM CDT Body Mass Index 30.42 05/19/2007 9:00 AM CDT documented in this encounter Progress Notes Getachew Mills - 05/22/2007 10:39 PM CDT Addended by: GETACHEW MILLS on: 05/22/2007 10:39:37 PM Modules accepted: Orders Getachew Mills - 05/19/2007 9:04 AM CDT PRE-OP EVALUATION: Today's date: 05/19/2007 Valeri Keenan (: 1955) presents for pre-operative evaluation as requested by Dr. Zepeda & Dr. Isabel. She requires evaluation and anesthesia clearance prior to undergoing surgery/procedure for treatment of breast cancer . Proposed procedure: left mastectomy and bilateral recomstruction Date of Surgery/ Procedure: 05/26/07 Time of Surgery/ Procedure: 11:00 a.m. Hospital/Surgical Facility: [facility] Primary Physician: Dr. Mills Type of Anesthesia Anticipated: General History of anesthesia complications: NONE History of abnormal bleeding: NONE History of blood transfusions: no ient has a Health Care Directive or [...] as prolonged bleeding following surgeries or cuts? 12-yesHave you ever had problems with anemia or [...] carcinoma in situ, neg sentinal node biopsy. Now undergoing elective left sided mastectomy (prophylactic) with bilateral reconstruction by the plastic surgeon. MRI of left breast neg for worrisome findings. HYPOTHYROIDISM NOS [244.9] Due for thyroid labs, has left sided fullness in neck, no previous ultrasound performed. ELEV BL PRES W/O HYPERTN [796.2] No hx of hypertension, pt has had stressfull week and believes this is contributing. Family hx + forearly heart disease. She denies chest pain at [...] [625.6] 09/27/2004 ??? MEDICAL HISTORY OF - [[id number]] 09/27/2004 DEXA normal ??? MENOPAUSAL DISORDER NEC [...] CARCINOMA IN SITU 2007 Right side, mastectomy Past Surgical History Procedure [...] EXAM OTHER SPECIFIED (primary encounter diagnosis) Note: left sided mastectomy, prophylactic, with bilatereral reconstruction Plan: CBC WITH PLATELETS, A.M.A. BASIC METABOLIC PANEL No contraindication to surgery 244.9 HYPOTHYROIDISM NOS Note: left sided thyroid fullness Plan: TSH W/FREE T4 REFLEX, SONO HEAD/NECK SOFT TISS Recheck thyroid function, ordered neck US, may be done with this hospitalization or as outpatient 796.2 ELEV BL PRES W/O HYPERTN Note: no hx of previous hypertension, suspect situational stress Plan: monitor BP at hosptial. If consistently elevated, sbp > 140, dbp > 85, would start HCTZ For above listed surgery and anesthesia: Patient is at LOW risk for surgery/procedure and perioperative/procedure complications. RECOMMENDATIONS: Approval given to proceed with proposed procedure, without further diagnostic evaluation. Signed Electronically by: Getachew Mills MD Internal Medicine/Pediatrics Copy of this evaluation report is provided to requesting physician. documented in this encounter Nursing Notes 05/19/2007 9:00 AM CDT >> MERY DEGROOT 05/19/2007 9:09 am Valeri Kelly Crystalalireza presents for pre-op. Initial BP 142/92 Pulse 80 Ht 5' 4.5 (1.64m) Wt 180 lbs (81.6kg) LMP Hysterectomy Body massindex is 30.43 kg/(m^2).. BP completed using cuff size: regular documented in this encounter Plan of Treatment Not on filedocumented as of this encounter Procedures Procedure Name Priority Date/Time Associated Diagnosis Comme nts ZZ CONSULT Routine 07/13/2007 Hypothyroidism Nos ENDOCRINOLOGY HC US SOFT TISSUE Routine 05/22/2007 12:26 Unspecified Result s for this HEAD/NECK PM CDT hypothyroidism procedure are in the results section. CL AFF CBC WITH Routine 05/19/2007 9:41 Preop Exam Other Resul ts for this PLATELETS AM CDT Specified procedure are i n the results section. HCL BASIC METABOLIC Routine 05/19/2007 9:41 Preop Exam Other R esults for this PANEL AM CDT Specified procedure are i n the results section. HCL TSH W/FREE T4 Routine 05/19/2007 9:41 Hypothyroidism Nos R esults for this REFLEX AM CDT procedure are i n the results section. documented in this encounter Results CONSULT ENDOCRINOLOGY (07/13/2007) Narrative This result has an attachment that is no t available. Getachew Mills MD REFERRAL SONO HEAD/NECK SOFT TISS (05/22/2007 12:26 PM CDT) Anatomical Region Laterality Modality Other Specimen (Source) Anatomical Collection Method Collection Time Re ceived Time Location / / Volume Laterality 05/22/2007 12:26 PM CDT Impressions 05/22/2007 12:30 PM CDT EXAM: ??US THYROID HISTORY: ??Left sided thyroid fullness. FINDINGS: Right lobe: Measures 4.9 x 1.9 x 1.7 cm. Solid nodule in the lower pole of the right lobe measuring 1.2 x 0 .8 x 0.9 cm. Left lobe: Measures 4.0 x 1.1 x 1.7 cm. No focal nodule seen. IMPRESSION: Diffuse heterogeneity throug hout the thyroid. There is a discrete nodule in the right lower pole measuring 1.2 x 0.8 x 0.9 cm. Getachew Mills MD SPECIAL IMAGING STUDIES (ABNORMAL) A.M.A. BASIC METABOLIC PANEL (05/19/2007 9:41 AM CDT) athologist Signature Sodium 141 133 - 144 [place] mmol/L [facility] Potassium 4.6 3.4 - 5.3 [place] mmol/L [facility] Chloride 100 94 - 109 [place] mmol/L [facility] Carbon Dioxide 31 20 - 32 [place] mmol/L [facility] Anion Gap 10 6 - 17 [place] mmol/L [facility] Glucose 100 (H) 60 - 99 [place] mg/dL [facility] Urea Nitrogen 18 7 - 30 [place] mg/dL [facility] Creatinine 0.90 0.60 - [place] 1.30 mg/dL [facility] GFR Estimate 70 >60 [place] mL/min/1.7 [facility] m2 LAB GFR Estimate If 84 >60 [place] Black mL/min/1.7 [facility] m2 LAB Calcium 10.3 8.5 - 10.4 [place] mg/dL [facility] Specimen Anatomical Collection Method Collection Time Receive d Time (Source) Location / / Volume Laterality 05/19/2007 9:41 AM 7 9:43 CDT AM CDT Getachew Mills MD LABORATORY Performing Organization Address City/State/ZIP Code Phon e Number [facility] [address] [place] [address] [facility] CBC WITH PLATELETS (05/19/2007 9:41 AM CDT) athologist Signature WBC 4.3 4.0 - 11.0 [place] 10e9/L [facility] RBC Count 4.83 3.8 - 5.2 [place] 10e12/L [facility] Hemoglobin 13.9 11.7 - [place] 15.7 g/dL CLINIC LAB Hematocrit 43.1 35.0 - [place] 47.0 % CLINIC LAB MCV 89 78 - 100 [facility] MCH 28.8 26.5 - [place] 33.0 pg CLINIC LAB MCHC 32.3 31.5 - [place] 36.5 g/dL CLINIC LAB RDW 13.4 10.0 - [place] 15.0 % CLINIC LAB Platelet Count 344 150 - 450 [facility] 10e9/L [facility] Specimen Anatomical Collection Method Collection Time Receive d Time (Source) Location / / Volume Laterality 05/19/2007 9:41 AM 7 9:43 CDT AM CDT Getachew Mills MD LABORATORY Performing Organization Address City/State/ZIP Code Phon e Number [facility] [address] [place] [address] [facility] TSH W/FREE T4 REFLEX (05/19/2007 9:41 AM CDT) P athologist Signature TSH 1.24 0.4 - 5.0 [facility] mU/L [facility] Specimen Anatomical Collection Method Collection Time Receive d Time (Source) Location / / Volume Laterality 05/19/2007 9:41 AM 7 9:43 CDT AM CDT Getachew Mills MD LABORATORY Performing Organization Address City/[facility] [address]/ZIP Code Phon e Number [facility] [address] [place] [address] [facility] documented in this encounter Visit Diagnoses Diagnosis Other specified pre-operative examinatio n - Primary Unspecified hypothyroidism Elevated blood pressure reading without diagnosis of hypertension documented in this encounter Care Teams Swine Extension Field Specialist Relationship Specialty Start Date End Date Angeles Olsen MD PCP - General 02/26/02 08/28/10 documented as of this encounter
--- OUTSIDE RECORDS SUMMARY | 2022-04-16 19:41 | XMS_ITS | Encounter Summary ---
:1955 Author Organization [facility] Address [address] [place] [address]. [place] [address] Care Team Providers Name Role Phone Angeles Olsen MD Primary Care Provider [phone] Reason for Visit Reason Onset Date Comments Results 03/23/2007 TSH Encounter Details Date Type Department Care Team Description 03/23/2007 Telephone [facility] Vanessa Rasheed, Results (TSH) [address] [place] [address] [place] [address] [place] [address] (Wo rk) Social History Tobacco Use Types Packs/Day Years Used Date Never Smoker Alcohol Use Standard Drinks/Week Comments Yes 0 (1 standard drink = 0.6 oz pure alcoho l) 1 glass of wine per week 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 Date 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 States she has noted feeling SOB and lightheaded when she goes upstairs. Pt has an appt tomorrow with Dr Jameson. If he doesn't check the HGB at his office tomorrow, she will come to clinic to have lab work done. No further questions at this time. Quita Álvarez RN Telephone Encounter - Vanessa Mills - 03/23/2007 9:37 PM CDT TSH is in normal range, I suspect the low hemoglobin is making her most tired. Ideally TSH should bebetween 1-3. With major surgery/illness, thyroid function can change a bit. I'd recommend the following, Take Levothyroxine 100mcg tablet daily, except, take 2 tablets each Friday. Recheck TSH in 6 wks, along with hemoglobin. If dizzy, short of breath or with chest pain, checkhemoglobin sooner and consider blood transfusion. Stay on iron daily. Vanessa Mills MD Internal Medicine/Pediatrics Telephone Encounter - Gardenia Álvarez - 03/23/2007 1:57 PM CDT I spoke with patient and TSH level was normal on 03/13, but lab note indicated- TSH is approaching the limit of normal. I am sure that you and Dr. Mills will continue to follow this closely. Pt asking if she needs to recheck this within the year. I explained to pt that we usually check thisyearly when in a normal range, unless pt is symptomatic. States she is fatigued, but she just had a mastectomy with complications, and the HGB dropped from 14 to 8. She is taking Iron supplements and eating Iron- rich foods. No plan to recheck HGB yet, but she has an office visit with Dr. Jameson on Fri. Marli Álvarez RN Telephone Encounter - Gardenia Álvarez - 03/23/2007 1:50 PM CDT Staff Message copied by GARDENIA ÁLVAREZ on 03/23/2007 at 1:50 PM ------ Message from: HERNAN REID Created: 03/23/2007 at 8:53 AM Regarding: galina Contact: Pt received thy results and it was low. She had seen carlota. Can dr. Mills plhilario review the labs and poss adjust the dose. documented in this encounter Plan of Treatment Not on filedocumented as of this encounter Visit Diagnoses Diagnosis Anemia, unspecified Unspecified hypothyroidism documented in this encounter Care Teams Centerless Grinder Tender Relationship Specialty Start Date End Date Angeles Olsen MD PCP - General 02/26/02 08/28/10 documented as of this encounter
--- OUTSIDE RECORDS SUMMARY | 2022-04-16 19:41 | XMS_ITS | Encounter Summary ---
:1955 Author Organization [place] Address [address] [place] [address] Care Team Providers Name Role Phone Angeles Olsen MD Primary Care Provider [phone] Reason for Visit Reason Comments Blood Draw Encounter Details Date Type Department Care Team Description 03/25/2007 Orders Only [facility] Eag an ANEMIA NOS (Primary Dx) [address] [place] [address] Social History Tobacco Use Types Packs/Day Years Used Date Never Smoker Alcohol Use Standard Drinks/Week Comments Yes 0 (1 standard drink = 0.6 oz pure alcoho l) 1 glass of wine per week 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 Date Recorded 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 documented in this encounter Results (ABNORMAL) CBC WITH PLATELETS (03/25/2007 10:55 AM CDT) Analysis Performed At [facility] logist Time Signature WBC 6.5 4.0 - 11.0 [place] 10e9/L [facility] RBC Count 3.56 (L) 3.8 - 5.2 [place] 10e12/L [facility] Hemoglobin 10.5 (L) 11.7 - [place] 15.7 g/dL [facility] Hematocrit 32.7 (L) 35.0 - [place] 47.0 % [facility] MCV 92 78 - 100 [place] fl [facility] MCH 29.5 26.5 - [place] 33.0 pg [facility] MCHC 32.1 31.5 - [place] 36.5 g/dL [facility] RDW 13.6 10.0 - [place] 15.0 % [facility] Platelet Count 394 150 - 450 [place] 10e9/L [facility] Specimen Anatomical Collection Method Collection Time Receive d Time (Source) Location / / Volume Laterality 03/25/2007 10:55 03/25/2007 AM CDT 10:58 AM CDT Getachew Mills MD LABORATORY Performing Organization Address City/State/[facility] Code Phon e Number [facility] [address] [place] [address] [facility] documented in this encounter Visit Diagnoses Diagnosis Anemia, unspecified - Primary documented in this encounter Care Teams Child Therapist Relationship Specialty Start Date End Date Angeles Olsen MD PCP - General 02/26/02 08/28/10 documented as of this encounter
--- OUTSIDE RECORDS SUMMARY | 2022-04-16 19:41 | XMS_ITS | Encounter Summary ---
:1955 Author Organization [place] Address [address] [place] [address]. [place] [address] Care Team Providers Name Role Phone Angeles Olsen MD Primary Care Provider [phone] Reason for Visit Reason Onset Date Comments Referral 05/25/2007 Endocrinology Encounter Details Date Type Department Care Team Description 05/25/2007 Telephone [facility] Eag an Vanessa Mills Referral 14[address] [facility] MD Vanessa (Endocrinology) [place] [address] [place] [address] [place] [address] Social History Tobacco Use Types Packs/Day Years Used Date Never Smoker Alcohol Use Standard Drinks/Week Comments Yes 0 (1 standard drink = 0.6 oz pure alcoho l) 1 glass of wine per week 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 Date Recorded 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 Tiffanie Brown LPN Telephone Encounter - Vanessa Mills - 05/25/2007 5:42 PM CDT Ok to wait until 06/23 to see director business development. Thyroid nodules are generally slow growing if they grow at all. Vanessa Mills MD Internal Medicine/Pediatrics Telephone Encounter - Gardenia Álvarez - 05/25/2007 9:47 AM CDT Pt was notified of results this am by Tiffanie per result note. Quita Álvarez RN Telephone Encounter - Gardenia Álvarez - 05/25/2007 9:45 AM CDT Staff Message copied by GARDENIA ÁLVAREZ on 05/25/2007 at 9:45 AM ------ Message from: SISSY PEREZ Created: 05/25/2007 at 8:34 AM Regarding: KRISTY PT WOULD LIKE U/S RESULTS. PLEASE CALL PT AT [phone] Telephone Encounter - Gardenia Álvarez - 05/25/2007 9:44 AM CDT Staff Message copied by GARDENIA ÁLVAREZ on 05/25/2007 at 9:44 AM ------ Message from: LORRIE PEDROZA Created: 05/25/2007 at 9:30 AM Regarding: FABRIZIO PT HAS APPT AT [facility] ON 06/23. SHE WANTED TO SEE IF DR MILLS THOUGHT SHE NEEDED TO BE SEEN BEFORE THIS DATE AND IF SO COULD DR MILLS CALL AND SCHEDULE ANOTHER TIME FOR HER. HER NUMBER IS [phone]. documented in this encounter Plan of Treatment Not on filedocumented as of this encounter Visit Diagnoses Not on filedocumented in this encounter Care Teams Airbrush Artist Photography Relationship Specialty Start Date End Date Angeles Olsen MD PCP - General 02/26/02 08/28/10 documented as of this encounter
--- OUTSIDE RECORDS SUMMARY | 2022-04-16 19:41 | XMS_ITS | Encounter Summary ---
:1955 Author Organization [facility] Address [address] [place] [address] Care Team Providers Name Role Phone Angeles Olsen MD Primary Care Provider [phone] Encounter Details Date Type Department Care Team Description 05/26/2007 Operative Report Isaura Gary MD (Retail Loss Prevention Specialist) [address] [place], [place] [address] (Wo rk) Social History Tobacco Use Types Packs/Day Years Used Date Never Smoker Alcohol Use Standard Drinks/Week Comments Yes 0 (1 standard drink = 0.6 oz pure alcoho l) 1 glass of wine per week 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 Date Recorded 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 POSTOPERATIVE DIAGNOSIS: Right breast cancer. PROCEDURE: Left breast sentinel node injection, mapping, and excision, left total mastectomy with immediate bilateral reconstruction (Dr. Gama). SURGEON: Isaura Gary MD ANESTHESIA: General. BLOOD LOSS: Less than 50. PREOP MEDICATIONS: Levaquin. INDICATION: Valeri Rojas is a 52-year-old female who has undergone previous right breast resection for right breast cancer. She is now brought to the operating room for prophylactic resection on the left side with immediate bilateral reconstruction. She requests sentinel node excision to evaluate for the potential for metastatic disease from possible occult carcinoma in the left breast. She understands that there was no evidence for carcinoma on imaging tests at this point. In discussing her situation with Oncology, they feel that sentinel node testing it is not absolutely necessary, but agree that evaluating at this time is appropriate. DESCRIPTION OF PROCEDURE: The patient was brought to the operating room, placed supine on the table, and the chest was prepped and draped in a sterile manner after induction of general anesthetic. Theincisions had been marked with Plastic Surgery in Pre-Induction. Methylene blue was injected in the subareolar tissues. The Neoprobe was used to identify a hot region in the left axilla, and a small transverse incision was made and gradually extended down to this hot region. A blue-stained lymphaticwas found entering into a minimally blue-stained lymph node. This node was excised. It had ex vivo counts of over 700. Rescanning in the axilla showed counts less than 2. This node was sent as left axillary sentinel node. The incision was closed with 3-0 and 4-0 Vicryl. While awaiting results on the sentinel node, we proceeded with the left mastectomy. Incisions outlined by Plastic Surgery were created and deepened through the subcutaneous tissue. Flaps were developed in all directions, and the subcutaneous tissues and skin were elevated off the breast. We continuedthis to the chest wall in all directions and to the sentinel node biopsy cavity in the axilla. The breast was then removed from the chest wall, preserving the pectoralis muscle fascia. A marker was placed to orient the breast for Pathology. The cavity was checked and rechecked and hemostasis appeared e xcellent. All sponge and needle counts were correct, and the procedure was turned over to Dr. Gama for bilateral reconstructive surgery (please see her note for details). Pathology reported that the sentinel node was negative on initial evaluation, and permanent sections are pending. Electronically signed on 06/03/2007 15:00 by ISAURA GARY MD MT: [id number] Name: VALERI ROJAS Account: [id number] : 1955 Procedure Date: 05/26/2007 Document: [id number] documented in this encounter Plan of Treatment Not on filedocumented as of this encounter Visit Diagnoses Not on filedocumented in this encounter Care Teams Punching Machine Operator Relationship Specialty Start Date End Date Angeles Olsen MD PCP - General 02/26/02 08/28/10 documented as of this encounter
--- OUTSIDE RECORDS SUMMARY | 2022-04-16 19:41 | XMS_ITS | Encounter Summary ---
:1955 Author Organization [facility] Address [address] [place] [address]. [place] [address] Care Team Providers Name Role Phone Angeles Olsen MD Primary Care Provider [phone] Reason for Visit Reason Onset Date Comments Lab Result Notice 03/26/2007 Encounter Details Date Type Department Care Team Description 03/26/2007 Telephone [facility] Eag Vanessa Byrne Lab Result Notice [address] [facility] [place] [address] [place] [address] [place] [address] (Wo rk) Social History Tobacco Use Types Packs/Day Years Used Date Never Smoker Alcohol Use Standard Drinks/Week Comments Yes 0 (1 standard drink = 0.6 oz pure alcoho l) 1 glass of wine per week 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 Date 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 Labs faxed to Dr May. Maryellen oNyola CMA Telephone Encounter - Vanessa Mills - 03/26/2007 12:32 AM CDT Please send letter( written, not printed) with vitamin D lab results. Please also fax to Laila May, cancer registry coordinator, thanks Vanessa Mills MD Internal Medicine/Pediatrics documented in this encounter Plan of Treatment Not on filedocumented as of this encounter Visit Diagnoses Not on filedocumented in this encounter Care Teams Category Planner Relationship Specialty Start Date End Date Angeles Olsen MD PCP - General 02/26/02 08/28/10 documented as of this encounter
--- OUTSIDE RECORDS SUMMARY | 2022-04-16 19:42 | XMS_ITS | Encounter Summary ---
:1955 Author Organization [facility] Address [address] [place] [address] Care Team Providers Name Role Phone Angeles Olsen MD Primary Care Provider [phone] Encounter Details Date Type Department Care Team Description 12/12/2005 Therapy Visit [place] [facility] iamLUMBA GO (Primary Athletic Medicine - PT Dx) [facility] [address] [facility]. 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 documented in this encounter Plan of Treatment Not on filedocumented as of this encounter Procedures Procedure Name Priority Date/Time Associated Diagnosis Comme nts ZC MANUAL THER Routine 12/12/2005 7:33 AM CDT Kate SIMMONS,1+REGIONS,EA 15 MIN Z ULTRASOUND THERAPY Routine 12/12/2005 7:33 AM CDT iamLUMBA GO documented in this encounter Visit Diagnoses Diagnosis iamLUMBAGO - Primary Lumbago documented in this encounter Care Teams Scrap Crusher Relationship Specialty Start Date End Date Angeles Olsen MD PCP - General 02/26/02 08/28/10 documented as of this encounter
--- OUTSIDE RECORDS SUMMARY | 2022-04-16 19:42 | XMS_ITS | Encounter Summary ---
:1955 Author Organization [facility] Address [address] [place] [address] Care Team Providers Name Role Phone Angeles Olsen MD Primary Care Provider [phone] Encounter Details Date Type Department Care Team Description 11/28/2005 Therapy Visit [place] for [facility] iamLUMBA GO (Primary Athletic Medicine - PT Dx) [place] [facility] [address] [facility]. 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 documented in this encounter Plan of Treatment Not on filedocumented as of this encounter Procedures Procedure Name Priority Date/Time Associated Diagnosis Comme nts [facility] MANUAL THER Routine 11/28/2005 10:32 AM Kate SIMMONS,+ABE,EA 15 MIN CDT ZC NEUROMUSCULAR Routine 11/28/2005 10:32 AM iamLUMBAGO RE-EDUCATION CDT ZZC THERAPEUTIC EXERCISES Routine 11/28/2005 10:32 AM iamLUMBA GO CDT documented in this encounter Visit Diagnoses Diagnosis iamLUMBAGO - Primary Lumbago documented in this encounter Care Teams Biofuels Plant Operations Engineer Relationship Specialty Start Date End Date Angeles Olsen MD PCP - General 02/26/02 08/28/10 documented as of this encounter
--- OUTSIDE RECORDS SUMMARY | 2022-04-16 19:42 | XMS_ITS | Encounter Summary ---
:1955 Author Organization [place] Address [address] [place] [address] Care Team Providers Name Role Phone Angeles Olsen MD Primary Care Provider [phone] Encounter Details Date Type Department Care Team Description 12/10/2005 Therapy Visit [place] for [facility] iamLUMBA GO (Primary Athletic Medicine - PT Dx) [facility] [address] [place] [facility]. 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 documented in this encounter Plan of Treatment Not on filedocumented as of this encounter Procedures Procedure Name Priority Date/Time Associated Diagnosis Comme nts ZC MANUAL THER Routine 12/10/2005 7:37 AM CDT Kate SIMMONS,1+ABE,EA 15 MIN ZZC THERAPEUTIC Routine 12/10/2005 7:37 AM CDT iamLUMBAGO EXERCISES ZZC ULTRASOUND THERAPY Routine 12/10/2005 7:37 AM CDT iamLUMBA GO documented in this encounter Visit Diagnoses Diagnosis iamLUMBAGO - Primary Lumbago documented in this encounter Care Teams Processor Solid Propellant Relationship Specialty Start Date End Date Angeles Olsen MD PCP - General 02/26/02 08/28/10 documented as of this encounter
--- OUTSIDE RECORDS SUMMARY | 2022-04-16 19:42 | XMS_ITS | Encounter Summary ---
:1955 Author Organization [facility] Address [address] [place] [address] Care Team Providers Name Role Phone Angeles Olsen MD Primary Care Provider [phone] System, Provider Not In Primary Care Provider Unavailable Encounter Details Date Type Department Care Team Description 2007 Historic Results INTERFACED REPORT Gustavo Waters MD [place] [address] (Wo rk) Social History Tobacco Use Types Packs/Day Years Used Date Never Smoker Alcohol Use Standard Drinks/Week Comments Yes 0 (1 standard drink = 0.6 oz pure alcoho l) 1 glass of wine per week 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 Date Recorded 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 documented in this encounter Results Histopathology (2007 12:00 AM CDT) Component Value Ref Test Analysis Performed Pathologis t Range Method Time At Signature Copath CASE: [id number] ^ COPATH Report Patient Name: VALERI ROJAS MR#: [id number] Specimen #: [id number] Collected: 2007 Received: 2007 Reported: 03/09/2007 09:22 Ordering Phy(s): OLEG WATERS Additional Phy(s): MARY HOLMAN ORIGINAL REPORT FOLLOWS ADDENDUM ADDENDUM TO ORIGINAL REPORT Status: Signed Out Date Ordered:03/09/2007 Date Complete:03/10/2007 Date Reported:03/10/2007 08:33 Signed Out By: Hilda Smith M.D. INTERPRETATION: IMMUNOHISTOCHEMICAL ANALYSIS FOR ESTROGEN AND PROGESTERONE R ECEPTORS: RESULTS: ESTROGEN RECEPTORS: ? Negative (no in situ neoplastic nuclei stain). PROGESTERONE RECEPTORS: ? Negative (no in situ neoplasti c nuclei stain). Nuclear estrogen and progesterone receptor proteins are assa yed by immunohistochemistry with quantitative/semiquantitative (mor phometric) microscopic analysis. Methodology: ??Immunohistochemical test for estrogen recepto rs [...] Group and by consensus statements from t he College of [place] Pathologists andthe [place] Society of Clinical Oncology. The National Institutes of Health (NIH) Consensus Statement on Adjuvant Therapy for Breast Cancer states that any degree of ER nucle ar staining detected by immunohistochemistry should be considered a posi tive result. A standard reporting format has not been proposed for proge sterone receptors and the ER reporting format is also used for [place] re porting. References: Adjuvant Therapy for Breast Cancer. ??NIH Consensus Statemen t. 2000;17:1-35. ERNESTO Null and Franny Duarte. ??Estrogen receptor analysis for dav st cancer. Current issues and keys to increasing testing accuracy, Adv Earnestine Pathol 2005;12:10-19. INEZ Delarosa, et al. ??Prognostic factors in breast cance r. ??College of [place] Pathologists Consensus Statement 1998. ??Arch [facility] Lab Med. 2000;124:966-978. Maryellen Jade., et al. ??Meeting highlights: ??International Consensus Panel on the Treatment of Primary Breast Cancer. ??Seventh [facility]SM Health Careernational Conference on Adjuvant Therapy for Primary Breast Cancer. ?? J Clin Oncol. 2001;19:0874-2452. Ronak Casillas. ??Better assays needed for hormone receptor statu s, experts say. ??J Natl Cancer Inst. 2001;93:579-580. KPF/tw 03/09/2007 ORIGINAL REPORT: SPECIMEN(S): Right breast core needle biopsy FINAL DIAGNOSIS: Right breast, microcalcifications on mammogram, stereotactic core biopsies: 1. 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 2. ??No evidence of invasive carcinoma or lymphovascular pippa or cells. 3. ??Estrogen and progesterone receptor studies are in proce ss and the results will be reported separately in an addendum. Electronically signed out by: Hilda Smith M.D. CLINICAL HISTORY: Superficial, moderately suspicious microcalcification cluste r (upper outer right breast). GROSS: The specimen is received in 2 containers. ??The first contai ner is labeled right breast stereotactic biopsy with microcalcific ations on the requisition slip and labeled right breast stereotactic biopsy cores with microcalcifications on the container. ??The specimen c onsists of multiple, similar-appearing, yellow-pink, fibrofatty breast tissue core fragments measuring up to 2.5 x 1.0 x 0.3 cm in aggregate. ? ?The second container is labeled right breast stereotactic biopsy cores without microcalcifications on the requisition slip and labeled ri ght breast stereotactic biopsies without microcalcifications on the co ntainer. The specimen consists of 3 similar-appearing, yellow-pink, f ibrofatty breast tissue core fragments measuring 1.3 x 0.7 x 0.3 cm in aggregate.. The specimens are entirely submitted. ??Cassette 1-2: with micros, 3: without micros. ??SI ??TRS/tw MICROSCOPIC: Core biopsies designated right breast show multiple areas of comedo pattern ductal carcinoma in situ which is of high nuclear gr sugar and with central necrosis, per definition for this lesion. ??Invasive carcinoma is searched for and is not present. ??Lymphovascular space invo lvement is also not identified. ??Special studies for estrogen receptor and progesterone receptor are in process and the results will be reported separately. ??Focal calcifications are associated with the l esion. KPF/zonia 03/09/2007 TESTING LAB LOCATION: [address] ??[id number] COLLECTION SITE: Client: [facility] Location: BC (S) Specimen (Source) Anatomical Collection Method Collection Time Re ceived Time Location / / Volume Laterality 2007 03/09/2007 9:32 AM CDT Oleg Waters MD LAB - COPATH SPECIAL DIAG OR DERABLES Performing Organization Address City/State/ZIP Code Phon e Number COPATH documented in this encounter Visit Diagnoses Not on filedocumented in this encounter Care Teams Tight Barrel Inspector Relationship Specialty Start Date End Date Angeles Olsen MD PCP - General 02/26/02 08/28/10 System, Provider Not In PCP - General 08/29/10 06/30/13 documented as of this encounter
--- OUTSIDE RECORDS SUMMARY | 2022-04-16 19:42 | XMS_ITS | Encounter Summary ---
:1955 Author Organization [facility] Address [address] [place] [address]. [place] [address] Care Team Providers Name Role Phone Angeles Olsen MD Primary Care Provider [phone] Reason for Referral - Closed Specialty Diagnoses / Procedures Referred By Contact Refer red To Contact Diagnoses Other acquired deformity of ankle and foot(736.79) Vanessa Mills MD [address] [facility] [place], [place] [address] Referral ID Status Reason Start Date Expiration Date Visits Requ ested Visits Authorized [id number] Closed 04/10/2006 08/17/2011 1 1 Reason for Visit Reason Comments Thyroid Problem Encounter Details Date Type Department Care Team Description 04/10/2006 Office Visit [facility] Vanessa Mills HYPOTHYRO IDISM NOS (Primary Dx); [place] Mendez MD ACQ ANKLE-FOOT DEF NEC; [address] [employer] [address] [place] [address] [facility] ROUTINE MEDICAL EXAM; FABIO Marquez [id number] A OBESITY NOS; [phone] [place], [place] RESTLESS LEG SYNDROME [address] Social History Tobacco Use Types Packs/Day Years Used Date Never Smoker Alcohol Use Standard Drinks/Week Comments Yes 0 (1 standard drink = 0.6 oz pure alcoho l) 1 glass of wine per week 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 Date Recorded 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 Last Filed Vital Signs Vital Sign Reading Time Taken Comments Blood Pressure 100/70 04/10/2006 9:15 AM CDT Pulse 60 04/10/2006 9:15 AM CDT Temperature - - Respiratory Rate - - Oxygen Saturation - - Inhaled Oxygen Concentration - - Weight 86.6 kg (191 lb) 04/10/2006 9:15 AM CDT Height 165.1 cm (5' 5) 04/10/2006 9:15 AM CDT Body Mass Index 31.78 04/10/2006 9:15 AM CDT documented in this encounter Patient Instructions Patient InstructionsVanessa Mills - 04/10/2006 10:34 AM CDT Vitamin D 800 IU daily MVI has 400 IU Milk has 100 IU per cup documented in this encounter Progress Notes Claudine Nava - 04/15/2006 10:12 AM CDT 04/10/2006 VALERI ROJAS : 1955 #[id number] S: Patient is a 51-year-old woman who is here for several issues. She has a history of chronic arthralgias and was seen by the casserole preparer. She was diagnosed with some osteoarthritis. Rheumatoid arthritis was ruled out, as were other connective tissue diseases. She brings in a copy of lab work doneat that office. Of note, she had a low vitamin D level of 27.6. The casserole preparer recommended 800 IU units of vitamin D daily. Family history is significant for a mother and maternal grandmother and paternal grandmother with osteoporosis. The patient takes a calcium supplement 600 mg of calcium/200 units of vitamin D daily. She also drinks at least 1 glass of milk and takes a multivitamin daily. No history of any fractures. Second, the patient was found to have hypothyroidism. This was on the screen from the Rheumatology office has. Her TSH level was 9.03. TSH had been checked in our clinic 2 years ago and was in normal range. The patient is noting a lot of fatigue. She denies constipation, skin c hanges, or hair loss. She was told by the casserole preparer to seek treatment for this condition. No problems with swallowing or fullness in the neck. Next, the patient reports that she is taking Feldene for arthralgias and this is working, she thinks much better than Celebrex. She is having no problems with stomach upset. She is due for a bone density test. She also has concerns about some bunions on the lateral aspects of her feet bilaterally. They become a lot more tender and it has been difficult for her to wear even sandals this summer. She wants to consider surgery. She would like to see an orthopedic surgeon. Finally, the patient is due for a ferritin level. She has generalized pain in her calves and legs at night. Sometimes, it is hard for her to get to sleep and I wanted out to rule out restless leg syndrome. The patient is also very overweight and wants to consider initiating the You Can Do It Program. She is also considering Weight Watchers. O: Blood pressure is 100/70. Pulse is 60. Weight is 191 pounds. Height is 5 feet 5 inches. This is apleasant woman in no acute distress. Heart: Regular S1, S2, no murmurs. Lungs are clear bilaterally.Abdomen is soft. There are good bowel sounds. No tenderness. Neck: She has no palpable adenopathy orthyromegaly. No nodules. No tenderness. Musculoskeletal: She had some thickened MCP joints, particularly at the 1st digits bilaterally. No redness, warmth or swelling. Wrists, elbows and shoulders are normal. She has no findings at the knees bilaterally. The feet show prominent bunions with protrusionof the 5th metatarsal heads bilaterally. A/P: 1. Foot pain. Referred the patient on for orthopedic evaluation. In the interim, continue with Feldene, wear comfortable shoes. 2. Hypothyroidism. Started the patient on levothyroxine 50 mcg daily. Return to clinic in 6 weeks for next TSH level. 3. Restless legs. Check ferritin level in 6 weeks, along with the thyroid test. 4. Obesity. Referred to You Can Do It Program. 5. Routine healthcare maintenance. The patient is referred for basic bone density testing. Weight-bearing exercises are emphasized with the patient. Her exercise is currently limited because of pain in the knees and other weight- bearing areas. Vanessa Mills M.D./robin d: 04/11/2006 t: 04/14/2006 Vanessa Mills - 04/10/2006 10:26 AM CDT dictated documented in this encounter Nursing Notes 04/10/2006 9:15 AM CDT >> TRACY ALVAREZ 04/10/2006 9:29 am Valeri Rojas presents for fu to thyroid from casserole preparer. No LMP date recorded. Reason: Hysterectomy. BP 100/70 Pulse 60 Ht 5' 5 (1.65m) Wt 191 lbs (86.6kg) LMP Hysterectomy Body mass index is 31.78 kg/(m^2). BP completed using cuff size: large. 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
--- OUTSIDE RECORDS SUMMARY | 2022-04-16 19:42 | XMS_ITS | Encounter Summary ---
:1955 Author Organization [facility] Address [address] [place] [address]. [place] [address] Care Team Providers Name Role Phone Angeles Olsen MD Primary Care Provider [phone] Reason for Visit Reason Comments Physical Encounter Details Date Type Department Care Team Description 11/04/2006 Office Visit [facility] Getachew Mills EDICAL EXAM (Primary Dx); [place] Mendez MD COUNSELING OTHER SPECIFIED; [address] [employer] [address] [place] [address] HYPOTHYROIDISM NOS; [place] [id number] A VITAMIN D DEFICIENCY NOS [phone] [place] [address] Social History Tobacco Use Types Packs/Day Years Used Date Never Smoker Alcohol Use Standard Drinks/Week Comments Yes 0 (1 standard drink = 0.6 oz pure alcoho l) 1 glass of wine per week 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 Date Recorded 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 encounter Last Filed Vital Signs Vital Sign Reading Time Taken Comments Blood Pressure 128/86 11/04/2006 8:30 AM CDT Pulse 52 11/04/2006 8:30 AM CDT Temperature - - Respiratory Rate 16 11/04/2006 8:30 AM CDT Oxygen Saturation - - Inhaled Oxygen Concentration - - Weight 84.8 kg (187 lb) 11/04/2006 8:30 AM CDT Height 163.2 cm (5' 4.25) 11/04/2006 8:30 AM CDT Body Mass Index 31.85 11/04/2006 8:30 AM CDT documented in this encounter Progress Notes Getachew Mills - 11/10/2006 12:42 AM CDT Addended by: GETACHEW MILLS on: 11/10/2006 12:42:11 AM Modules accepted: Orders, Medications Getachew Mills - 11/04/2006 9:14 AM CDT Valeri Keenan presents for physical exam. Initial BP 128/86 Pulse 52 Resp 16 Ht 5' 4.25 (1.63m) Wt 187 lbs (84.8kg) LMP Hysterectomy Body mass index is 31.85 kg/(m^2).. BP completed using cuff size: large. HEALTH CARE MAINTENANCE: LMP: Hysterectomy and HRT - Stopped 2002-Was on HRT for 10 months. Pap: Not Indicated OVERHEAD FOREMAN: None Mammogram: 2005 Colon Ca Screen: Not applicable DEXA scan: 2002 Tetanus: 08/2003 Pneumovax: NA SAFETY: ======= Do you feel safe in your relationship(s)? YES Do you have a gun in your home? Yes Do you wear your seatbelt regularly? YES Do you use sunscreen? YES Fasting? YES Concerns: 1)Pt is traveling to [place] on 11/13. Would like RXs for Doxycycline and Cipro. Quita Keenan is here for a general check up. She sees judicial assistant for annual paps and mammograms. She is fasting. Other concerns today: ROUTINE MEDICAL EXAM Sees judicial assistant for annual pap and mammograms. Had dexa done at judicial assistant office, will sign medical releaseto have these records released to us. COUNSELING OTHER SPECIFIED Travel to [place], up to date on vaccines, asking for Doxycycline for malaria prophylaxis. HYPOTHYROIDISM NOS Hx of hypothyroidism, due for TSH level. Feeling some fatigue, dose adjusted last July. Weight down about 5 pounds since last visit. 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 She now takes vitamin Dsupplement. Past Medical History Diagnosis Date ??? HEADACHE ??? TM JOINT DISORDER, UNSPEC ??? OSTEOARTHROS NOS-OTHER SITE 2004 Hands, multiple joints, followed by Rheum ??? FEMALE STRESS INCONTINENCE ??? MEDICAL HISTORY OF - 2003 DEXA normal ??? MENOPAUSAL DISORDER NEC 2003 On HRT x 9months, then DC ??? PERS HX COLONIC POLYPS 04/2005 adenoma ??? PURE HYPERCHOLESTEROLEM 2006 GOAL IS LDL<130 HABITS: Tob: none ETOH: 1/week Calcium: 2/day + 1 supplement daily Calcium and Vit D supp Caffeine: 2/ week Exercise: Walking 3x per week, 1 mile INTERACTIVE ACCOUNT MANAGER HISTORY: LMP: No LMP date recorded. Reason: Hysterectomy. Vasomotor sx: minor Self Breast exam: Yes, followed by judicial assistant PMH, PSH, FH, medications, allergies and immunizations are updated this visit. ROS CONSTITUTIONAL:NEGATIVE for fever, chills, 5# weight loss in past 3 months. INTEGUMENTARY/SKIN: NEGATIVE for worrisome rashes, moles or [...] for frequency, dysuria, or hematuria MUSCULOSKELETAL:hx of osteoarthritis, stable NEURO: NEGATIVE for weakness, dizziness or paresthesias ENDOCRINE: NEGATIVE for polyuria/dipsia, temperature intolerance, skin/hair changes HEME/ALLERGY/IMMUNE: NEGATIVE for bleeding problems PSYCHIATRIC: NEGATIVE for changes in mood or affect EXAM BP 128/86 Pulse 52 Resp 16 Ht 5' 4.25 (1.63m) Wt 187 lbs (84.8kg) LMP Hysterectomy BMI = Body mass index is 31.85 kg/(m^2). GENERAL APPEARANCE: Alert, pleasant, NAD EYES: PERRL, EOMI, conjunctiva clear HENT: TM normal bilaterally. Nose and mouth without lesions NECK: no adenopathy, thyroid normal to palpation RESP: lungs clear to auscultation bilaterally BREAST: not done CV: regular rate and rhythm, normal S1 [...] taught. Plan: A.M.A. LIPID PANEL, CBC WITH PLATELETS, A.M.A. COMPREHENSIVE MET.PANEL V65.49 COUNSELING OTHER SPECIFIED Note: [place] travel Plan: DOXYCYCLINE MONOHYDRATE 100 MG OR TABS, CIPRO 500 MG OR TABS Discussed medications, up to date on vaccines. 244.9 HYPOTHYROIDISM NOS Note: some fatigue Plan: TSH W/FREE T4 REFLEX, VITAMIN D 25-HYDROXY Recheck TSH, goal 1-2, adjust prn. 268.9 VITAMIN D DEFICIENCY NOS Note: on vitamin D supplement Plan: recheck level documented in this encounter Plan of Treatment Not on filedocumented as of this encounter Procedures Procedure Name Priority Date/Time Associated Diagnosis Comme nts CL AFF CBC WITH Routine 11/04/2006 9:49 Routine Medical Exam R esults for this PLATELETS AM CDT procedure are i n the results section. HCL COMPREHENSIVE Routine 11/04/2006 9:49 Routine Medical Exam Results for this METABOLIC PANEL AM CDT procedure ar e in the results section. HCL TSH W/FREE T4 Routine 11/04/2006 9:49 Hypothyroidism Nos R esults for this REFLEX AM CDT procedure are i n the results section. ZZCL AFF VITAMIN D Routine 11/04/2006 9:49 Hypothyroidism Nos Results for this 25-HYDROXY AM CDT procedure are i n the results section. CL AFF A.M.A. LIPID Routine 11/04/2006 9:49 Routine Medical Ex am Results for this PANEL AM CDT procedure are i n the results section. documented in this encounter Results VITAMIN D 25-HYDROXY (11/04/2006 9:49 AM CDT) P athologist Signature Vitamin 28 16 [facility] D3,25-OH ng/mL CAMPUS LABS Comment: Season, race and dietary intake affect t he normal levels of 28-zvamysq-Emkrdnu D. ??Values are decreased during winter months and increased during summer months. ??Values less than <15 ng/mL ma y indicate Vitamin D deficiency. Specimen Anatomical Collection Method Collection Time Receive d Time (Source) Location / / Volume Laterality 11/04/2006 9:49 AM 7 9:54 CDT AM CDT Getachew Mills MD LABORATORY Performing Organization Address City/State/ZIP Code Phon e Number [facility] [address] [place] [address] [facility] LABS A.M.A. COMPREHENSIVE MET.PANEL (11/04/2006 9:49 AM CDT) athologist Signature Sodium 143 133 - 144 [place] mmol/L CLINIC LAB Potassium 4.6 3.4 - 5.3 [place] mmol/L CLINIC LAB Chloride 106 94 - 109 [place] mmol/L CL[facility]IC LAB Carbon Dioxide 30 20 - 32 [place] mmol/L CLINIC LAB Anion Gap 7 6 - 17 [place] mmol/L [facility]IC LAB Glucose 100 60 - 110 [place] mg/dL CLINIC LAB Urea Nitrogen 16 7 - 30 [place] mg/dL CLINIC LAB Creatinine 0.90 0.60 - [place] 1.30 mg/dL CLINIC LAB GFR Estimate 70 >60 [place] mL/min/1.7 CLINIC LAB m2 GFR Estimate If 85 >60 [place] Black mL/min/1.7 CLINIC LAB m2 Calcium 9.4 8.5 - 10.4 [place] mg/dL CLINIC LAB Bilirubin Total 0.3 0.2 - 1.3 [place] mg/dL CLINIC LAB Albumin 4.4 3.3 - 4.6 [place] g/dL CLINIC LAB Protein Total 7.3 6.0 - 8.2 [place] g/dL CLINIC LAB Alkaline 79 40 - 150 [place] Phosphatase U/L CLINIC LAB ALT 38 0 - 50 [facility]/L [facility] AST 26 0 - 45 U/L [facility] LAB Specimen Anatomical Collection Method Collection Time Receive d Time (Source) Location / / Volume Laterality 11/04/2006 9:49 AM 7 9:54 CDT AM CDT Getachew Mills MD LABORATORY Performing Organization Address City/[facility]/ZIP Code Phon e Number [facility] [address] [place] [phone] [facility] TSH W/FREE T4 REFLEX (11/04/2006 9:49 AM CDT) athologist Signature TSH 4.67 0.4 - 5.0 [facility] mU/L CLINIC LAB Specimen Anatomical Collection Method Collection Time Receive d Time (Source) Location / / Volume Laterality 11/04/2006 9:49 AM 7 9:54 CDT AM CDT Getachew Mills MD LABORATORY Performing Organization Address City/[facility]/ZIP Code Phon e Number [facility] [address] [place] [address] [facility] LAB CBC WITH PLATELETS (11/04/2006 9:49 AM CDT) athologist Signature WBC 4.1 4.0 - 11.0 [place] 10e9/L CLINIC LAB RBC Count 4.46 3.8 - 5.2 [place] 10e12/L CLINIC LAB Hemoglobin 13.3 11.7 - [place] 15.7 g/dL CLINIC LAB Hematocrit 38.3 35.0 - [place] 47.0 % CLINIC LAB MCV 86 78 - 100 [facility] MCH 29.8 26.5 - [place] 33.0 pg CLINIC LAB MCHC 34.7 31.5 - [place] 36.5 g/dL CLINIC LAB RDW 14.7 10.0 - [place] 15.0 % CLINIC LAB Platelet Count 265 150 - 450 [place] 10e9/L CLINIC LAB Specimen Anatomical Collection Method Collection Time Receive d Time (Source) Location / / Volume Laterality 11/04/2006 9:49 AM 7 9:54 CDT AM CDT Getachew Mills MD LABORATORY Performing Organization Address City/[facility]/ZIP Code Phon e Number [address] [address] [facility] (ABNORMAL) A.M.A. LIPID PANEL (11/04/2006 9:49 AM CDT) athologist Signature Cholesterol 195 0 - 200 [facility] mg/dL CLINIC LAB Comment: LDL Cholesterol is the primary guide to therapy: LDL-cholesterol goal in high risk patients is <100 mg/dL and in very high risk patients is <70 mg/dL. The NCEP recommends further evaluation of: patients with cholesterol <200 mg/dL if additional risk factors are present, cholesterol >240 mg/dL, triglycerides >150 mg/dL, or HDL <40 mg/dL. Triglycerides 129 0 - 150 mg/dL [facility] HDL Cholesterol 45 (L) 50 - 110 mg/dL [facility] LDL Cholesterol Calculated 124 0 - 129 mg/dL [facility] Comment: LDL Cholesterol is the primary guide to therapy: LDL-cholesterol goal in high risk patients is <100 mg/dL and in very high risk patients is <70 mg/dL. VLDL-Cholesterol 26 0 - 30 mg/dL [facility] Cholesterol/HDL Ratio 4.3 0.0 - 5.0 [facility] Specimen Anatomical Collection Method Collection Time Receive d Time (Source) Location / / Volume Laterality 11/04/2006 9:49 AM 7 9:54 CDT AM CDT Getachew Mills MD LABORATORY Performing Organization Address City/State/ZIP Code Phon e Number [facility] [address] [facility] [place] [address] [facility] documented in this encounter Visit Diagnoses Diagnosis Routine general medical examination at a health care facility - Primary Other specified counseling Unspecified hypothyroidism Unspecified vitamin D deficiency documented in this encounter Care Teams Imaging Engineer Relationship Specialty Start Date End Date Angeles Olsen MD PCP - General 02/26/02 08/28/10 documented as of this encounter
--- OUTSIDE RECORDS SUMMARY | 2022-04-16 19:42 | XMS_ITS | Encounter Summary ---
:1955 Author Organization [facility] Address [address] [place] [address]. [place] [address] Care Team Providers Name Role Phone Angeles Olsen MD Primary Care Provider [phone] Reason for Visit Reason Comments RECHECK Lab results Imm/Inj Travel immunizations to [facility] 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 Mefloquine, one pill per week, start 2 wks prior to travel and continue for 4 wks after you return. Travel Clinic [address] Exit at [facility] and go right Next to [facility] (about one mile up the road) On Right side of street [facility] [phone] documented in this encounter Progress Notes Vanessa Mills - 10/09/2004 11:19 PM CST SUBJECTIVE: Valeri Keenan, a 49 year old female scheduled an appointment to discuss the following issues: TRAVEL COUNSELING Will be traveling to [facility] in October 2004. Here to update vaccines. Recently had Hepatitis titers checked. Pt reports she had been immunized for hepatitis B in the past. HYPERLIPIDEMIA NEC/NOS Has lost 15 pounds concertedly over the past year. Had recent cholesterol profile and wants to discuss results. Medical, social, surgical, and family histories reviewed. or hematuria} EXAM BP 116/76 Pulse 56 Resp 16 LMP Hysterectomy EXAM NOT PERFORMED ASSESSMENT/PLAN: V65.49 TRAVEL COUNSELING (primary encounter diagnosis) Note: Recent serologies show no immunity to hepatitis A. Plan: HEPA VACCINE ADULT IM, MEFLOQUINE HCL 250 MG OR TABS, POLIOMYELITIS IMMUNIZATN,INACTV,SQ, TYPHOID VACCINE OR CPDR Above vaccines given. Pt will decide between mefloquine and doxycycline as prophylaxis for malaria.I printed out CDC guidelines for travel. [facility] is in high risk zone for Yellow Fever. Gave pt information from this web site and referred her to the travel clinic, as we do not carry this vaccine. REcommend DEET, food precautions. 272.4 HYPERLIPIDEMIA NEC/NOS Note: Marked improvement after 15 pound weight loss. All numbers are in target range. Plan: continue efforts at weight loss, diet modification. Total visit time today 30 minutes. More than 50% of the time was spent in counseling on travel to [facility] and recommended vaccines, downloading CDC information for this patient. ATCHER TOW TRUCK Florinda Álvarez - 10/09/2004 9:34 AM CST Valeri Keenan presents for follow-up of lab results. Pt is traveling to [facility]-discuss travel immunizations. Initial BP 116/76 Pulse 56 Resp 16 LMP Hysterectomy Estimated Body Mass Index is 28.74 kg/(m^2) as calculated from: Height of 5' 4.5 (1.638m) as of 09/25/04 Weight of 170 lbs (77.111 kg) as of 09/25/04 . BP completed using cuff size: regular. Quita Álvarez RN ATCHER TOW TRUCK documented in this encounter Plan of Treatment Not on filedocumented as of this encounter Visit Diagnoses Diagnosis TRAVEL COUNSELING - Primary Other specified counseling Other and unspecified hyperlipidemia documented in this encounter Care Teams Web Applications Architect Relationship Specialty Start Date End Date Angeles Olsen MD PCP - General 02/26/02 08/28/10 documented as of this encounter
--- OUTSIDE RECORDS SUMMARY | 2022-04-16 19:42 | XMS_ITS | Encounter Summary ---
:1955 Author Organization [facility] Address [address] [place] [address] Care Team Providers Name Role Phone Angeles Olsen MD Primary Care Provider [phone] Encounter Details Date Type Department Care Team Description 12/17/2005 Therapy Visit [place] for Heavenly Haro iamLUMBA GO (Primary Athletic Medicine - PT Dx) [facility] [address] [facility] 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 documented in this encounter Plan of Treatment Not on filedocumented as of this encounter Procedures Procedure Name Priority Date/Time Associated Diagnosis Comme nts ZZC MANUAL THER Routine 12/17/2005 8:10 AM CDT Kate SIMMONS,1+ABE,EA 15 MIN documented in this encounter Visit Diagnoses Diagnosis iamLUMBAGO - Primary Lumbago documented in this encounter Care Teams Lime Puller Relationship Specialty Start Date End Date Angeles Olsen MD PCP - General 02/26/02 08/28/10 documented as of this encounter
--- OUTSIDE RECORDS SUMMARY | 2022-04-16 19:42 | XMS_ITS | Encounter Summary ---
:1955 Author Organization [facility] Address [address] [place] [address]. [place] [address] Care Team Providers Name Role Phone Angeles Olsen MD Primary Care Provider [phone] Encounter Details Date Type Department Care Team Description 07/25/2006 Orders Only [facility] Eag an HYPOTHYROIDISM NOS (Primary [address] 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 documented in this encounter Results TSH W/FREE T4 REFLEX (07/25/2006 9:23 AM PATIENT ACCESS DIRECTOR) athologist Signature TSH 4.80 0.4 - 5.0 [facility] Specimen Anatomical Collection Method Collection Time Receive d Time (Source) Location / / Volume Laterality 07/25/2006 9:23 AM 9:25 PATIENT ACCESS DIRECTOR AM PATIENT ACCESS DIRECTOR Getachew Mills MD LABORATORY Performing Organization Address City/State/ZIP Code Phon e Number [facility] [address] [place] [address] [facility] documented in this encounter Visit Diagnoses Diagnosis Unspecified hypothyroidism - Primary documented in this encounter Care Teams Pile Operator Relationship Specialty Start Date End Date Angeles Olsen MD PCP - General 02/26/02 08/28/10 documented as of this encounter
--- OUTSIDE RECORDS SUMMARY | 2022-04-16 19:42 | XMS_ITS | Encounter Summary ---
:1955 Author Organization [facility] Address [address] [place] [address]. [place] [address] Care Team Providers Name Role Phone Angeles Olsen MD Primary Care Provider [phone] Reason for Visit Reason Onset Date Comments Medication Request 10/09/2004 Thyphoid/Mefloquine Encounter Details Date Type Department Care Team Description 10/09/2004 Telephone [facility] Vanessa Rasheed Medication Request [address] [facility] MD Vanessa (Thyphoid/Mefloquine) [place] [address] [place] [address] [place] [address] Social History Tobacco Use Types Packs/Day Years Used Date Never Smoker Alcohol Use Standard Drinks/Week Comments Yes 0 (1 standard drink = 0.6 oz pure alcoho l) 1 glass of wine per week 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 Date Recorded 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 Quita Álvarez RN CAL HISTORIAN Telephone Encounter - Florinda Álvarez - 10/09/2004 2:[address] Mills-pt can take the Typhoid medication first, and then she will be off this for one week before starting the Mefloquine. Attempted to call pharmacy to notify them of this, but they're closed for lunch. Quita Álvarez RN CAL HISTORIAN Telephone Encounter - Zoe Scott - 10/09/2004 10:59 AM CST [facility] states travel medications have interactions; when is pt leaving on trip ? She is planning to pickle solution maker meds this afternoon. Grant Scott RN CAL HISTORIAN documented in this encounter Plan of Treatment Not on filedocumented as of this encounter Visit Diagnoses Not on filedocumented in this encounter Care Teams Educational Administration Teacher Relationship Specialty Start Date End Date Angeles Olsen MD PCP - General 02/26/02 08/28/10 documented as of this encounter
--- OUTSIDE RECORDS SUMMARY | 2022-04-16 19:42 | XMS_ITS | Encounter Summary ---
:1955 Author Organization [facility] Address [address] [place] [address] Care Team Providers Name Role Phone Angeles Olsen MD Primary Care Provider [phone] Reason for Visit Reason Comments Pre-Op Exam Encounter Details Date Type Department Care Team Description 03/13/2007 Office Visit [facility] Flako Oconnell, PREOP EXAM OTHER SPECIFIED (Primary Dx); Alma HAMLIN HYPOTHYROIDISM NOS; [address] [facility] MEDICAL HISTORY OF - FABIO Marquez [facility] [address] [address] [facility] [phone] [address] [place] [address] (Wo rk) Social History Tobacco Use Types Packs/Day Years Used Date Never Smoker Alcohol Use Standard Drinks/Week Comments Yes 0 (1 standard drink = 0.6 oz pure alcoho l) 1 glass of wine per week 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 Date Recorded 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 Problems all longstanding and stable, except as noted/documented. See ROS for pertinent symptoms related to these conditions. . Patient Active Problem List Diagnoses Date Noted ??? OBESITY NOS [278.00] 04/11/2006 ??? HYPOTHYROIDISM NOS [244.9] 04/10/2006 ??? iamLUMBAGO [724.2] 11/26/2005 ??? PURE HYPERCHOLESTEROLEM [272.0] GOAL IS LDL<130 ??? HEADACHE [784.0] 09/27/2004 ??? OSTEOARTHROS NOS-OTHER SITE [715.98] 09/27/2004 Hands, multiple joints, followed by Rheum ??? FEMALE STRESS INCONTINENCE [625.6] 09/27/2004 ??? MEDICAL HISTORY OF - [5000861] 09/27/2004 DEXA normal ??? MENOPAUSAL DISORDER NEC [...] ??? PURE HYPERCHOLESTEROLEM 2005 GOAL IS LDL<130 Past Surgical History Procedure Date ??? Appendectomy ??? Surgical history of - CARPEL TUNNEL ??? Nonspecific procedure RIGHT 2ND TOE SURGERY ??? Vag hyst,rmv tube/ovary 08/2002 Fibroids, on HRT x 10 months, then D/C ??? Colonoscopy 04/2005 adenoma, repeat 5 yrs Current outpatient prescriptions Medication Sig ??? PIROXICAM 20 MG OR CAPS 1 CAPSULE DAILY ??? ORACEA 40 MG OR CPDR 1 CAPSULE EVERY MORNING BEFORE BREAKFAST ??? LEVOTHYROXINE SODIUM 100 MCG OR TABS 1 TABLET DAILY ??? UNKNOWN MED DOSAGE Vitamin D-1 tablet [...] OR TABS 3 TABLETS NEEDED OTC products: no recent use of OTC ASA, NSAIDS or Steroids Allergies Allergen Reactions ??? Meperidine nausea Latex Allergy: NO History Substance Use Topics ??? Tobacco Use: Never ??? Alcohol Use: Yes 1 glass of wine per week History Drug Use No REVIEW OF SYSTEMS: CONSTITUTIONAL:NEGATIVE for fever, chills, + for intentional weight loss (on weight watchers) INTEGUMENTARY/SKIN: NEGATIVE for worrisome rashes, moles or lesions EYES: NEGATIVE for vision changes or irritation ENT/MOUTH: NEGATIVE for ear, mouth and throat problems RESP:NEGATIVE for significant cough or SOB CV: NEGATIVE for chest pain, palpitations or peripheral edema GI: NEGATIVE for nausea, abdominal pain, heartburn, or change in bowel habits MUSCULOSKELETAL: Hx of arthritis followed by rheumatology - stable arthralgias NEURO: NEGATIVE for weakness, dizziness or paresthesias and having headaches and mild lightheadedness this week - pt attributes to stress ENDOCRINE: NEGATIVE for temperature intolerance, skin/hair changes, + hot flashes HEME/ALLERGY/IMMUNE: NEGATIVE for bleeding problems and no personal or fam hx of dvt/pe EXAM: BP 124/76 Pulse 68 Resp 14 Ht 5' 5 (1.65m) Wt 175 lbs (79.4kg) LMP Hysterectomy GENERAL APPEARANCE: healthy, alert and no distress EYES: Eyes grossly normal to inspection, PERRL and conjunctivae and sclerae normal HENT: ear canals and TM's normal and nose and mouth without ulcers or lesions NECK: no adenopathy, no asymmetry, masses, or scars and thyroid sl generous to palpation, no nodules RESP: lungs clear to auscultation - no rales, rhonchi or wheezes CV: regular rates and rhythm, normal S1 S2, no S3 or S4 and no murmur, click or rub LYMPHATICS: normal ant/post cervical and supraclavicular nodes ABDOMEN: soft, nontender, without hepatosplenomegaly or masses and bowel sounds normal MS: arthritic changes of the mp, pip joints bilateral hands. SKIN: no suspicious lesions or rashes NEURO: Normal strength and tone, mentation intact and speech normal DIAGNOSTICS: EKG: appears normal, NSR, normal axis, normal intervals, no acute ST/T changes c/w ischemia, no LVH by voltage criteria, unchanged from previous tracings Labs: Pending. IMPRESSION: Diagnosis/reason for consult: DCIS, lumpectomy For above listed surgery and anesthesia: Patient is at LOW risk for surgery/procedure and perioperative/procedure complications. RECOMMENDATIONS: Approval given to proceed with proposed procedure, without further diagnostic evaluation. Discontinue ASA 10 days prior to procedure to reduce bleeding risk. Discontinue NSAIDS 5 days prior to procedure to reduce bleeding risk. Resume all medications post-operative or per surgeon. Signed Electronically by: FLAKO BESS Copy of this evaluation report is provided to requesting physician. V72.83 PREOP EXAM OTHER SPECIFIED (primary encounter diagnosis) Note: as above Plan: ELECTROCARDIOGRAM, COMP W/READ, A.M.A. BASIC METABOLIC PANEL, CBC WITH PLATELETS, DIFF 244.9 HYPOTHYROIDISM NOS Note: Plan: TSH W/FREE T4 REFLEX [id number] MEDICAL HISTORY OF - Note: has been on vitamin d supplements. Plan: 25 HYDROXYVITAMIN D2 & D3 Enriqueta Lind - 03/13/2007 8:24 AM CDT PRE-OP EVALUATION: Today's date: 03/13/2007 Valeri Keenan (: 1955) presents for pre-operative evaluation as requested by Dr. Jameson.She requires evaluation and anesthesia clearance prior to undergoing surgery/procedure for treatmentof breast cancer . Proposed procedure: lumpectomy Date of Surgery/ Procedure: 03/16/07 Time of Surgery/ Procedure: 1:00 Hospital/Surgical Facility: [facility] Primary Physician: Neil/Gene Type of Anesthesia Anticipated: General History of anesthesia complications: NONE History of abnormal bleeding: NONE History of blood tranfusions: NO Patient has a Health Care Directive [...] any chance that you may be ? Enriqueta Lind ma documented in this encounter Plan of Treatment Not on filedocumented as of this encounter Procedures Procedure Name Priority Date/Time Associated Diagnosis Comme nts HCL 25 HYDROXYVITAMIN Routine 03/13/2007 9:08 Medical History Of - Results for this D2 & D3 AM CDT procedure are i n the results section. CL AFF CBC WITH Routine 03/13/2007 9:08 Preop Exam Other Resul ts for this PLATELETS, DIFF AM CDT Specified procedure ar e in the results section. HCL BASIC METABOLIC Routine 03/13/2007 9:08 Preop Exam Other R esults for this PANEL AM CDT Specified procedure are i n the results section. HCL TSH W/FREE T4 Routine 03/13/2007 9:08 Hypothyroidism Nos R esults for this REFLEX AM CDT procedure are i n the results section. ZZC ELECTROCARDIOGRAM, Routine 03/13/2007 Preop Exam Other R esults for this COMP W/READ Specified procedure are i n the results section. documented in this encounter Results CBC WITH PLATELETS, DIFF (03/13/2007 9:08 AM CDT) Patholo gist Method Time Signature WBC 4.8 4.0 - [facility] 11.0 [facility] 10e9/L LAB RBC Count 4.71 3.8 - 5.2 [facility] 10e12/L [facility] Hemoglobin 14.1 11.7 - [facility] 15.7 g/dL [facility] Hematocrit 42.4 35.0 - [facility] 47.0 % [facility] MCV 90 78 - 100 [place] fl [facility] MCH 29.9 26.5 - [facility] 33.0 pg [facility] MCHC 33.3 31.5 - [facility] 36.5 g/dL [facility] RDW 14.1 10.0 - [place] 15.0 % [facility] Platelet Count 307 150 - 450 [place] 10e9/L [facility] Diff Method Automated [place] Method [facility] % Lymphocytes 31 20 - 48 % [facility] % Monocytes 6 0 - 12 % [facility] % Granulocytes 63 40 - 75 % [facility] Absolute 1.5 0.8 - 5.3 [place] Lymphocytes 10e9/L [facility] Absolute 0.3 0.0 - 1.3 [place] Monocytes 10e9/L [facility] Absolute 3.0 1.6 - 8.3 [place] Granulocytes 10e9/L [facility] Specimen Anatomical Collection Method Collection Time Receive d Time (Source) Location / / Volume Laterality 03/13/2007 9:08 AM 7 9:13 CDT AM CDT Flako Oconnell MD LABORATORY Performing Organization Address City/State/ZIP Code Phon e Number [facility] [address] [place] [address] [facility] 25 HYDROXYVITAMIN D2 & D3 (03/13/2007 9:08 AM CDT) P athologist Signature 25 [place] Vit D2 16 ug/L [facility] 25 [place] Vit D3 29 ug/L [facility] 25 [place] Vit D 45 30 - 75 [facility] total ug/L [facility] Comment: Season, race, dietary intake, and treatm ent affect the concentration of 97-mhshpux-Frohwzn D. Values may decrea se during winter months and increase during summer months. Values less than 30 ug/L may indicate Vitamin D deficiency. Specimen Anatomical Collection Method Collection Time Receive d Time (Source) Location / / Volume Laterality 03/13/2007 9:08 AM 7 9:13 CDT AM CDT Flako Oconnell MD LABORATORY Performing Organization Address City/State/ZIP Code Phon e Number [facility] [address] [place] [address] [facility] TSH W/FREE T4 REFLEX (03/13/2007 9:08 AM CDT) athologist Signature TSH 4.73 0.4 - 5.0 [facility] mU/L CLINIC LAB Specimen Anatomical Collection Method Collection Time Receive d Time (Source) Location / / Volume Laterality 03/13/2007 9:08 AM 7 9:13 CDT AM CDT Flako Oconnell MD LABORATORY Performing Organization Address City/[facility]/ZIP Code Phon e Number [facility] [address], [place] [address] [facility] A.M.A. BASIC METABOLIC PANEL (03/13/2007 9:08 AM CDT) athologist Signature Sodium 140 133 - 144 [place] mmol/L CLINIC LAB Potassium 4.5 3.4 - 5.3 [place] mmol/L [facility]INIC LAB Chloride 99 94 - 109 [place] mmol/L [facility] LAB Carbon Dioxide 30 20 - 32 [place] mmol/L [facility] LAB Anion Gap 11 6 - 17 [place] mmol/L [facility] LAB Glucose 92 60 - 99 [place] mg/dL CLINIC LAB Urea Nitrogen 15 7 - 30 [place] mg/dL CLINIC LAB Creatinine 0.90 0.60 - [facility] [place] 1.30 mg/dL CLINIC LAB GFR Estimate 70 >60 [facility] [place] mL/min/1.7 CLINIC LAB m2 GFR Estimate If 84 >60 [place] Black mL/min/1.7 CLINIC LAB m2 Calcium 9.8 8.5 - 10.4 [place] mg/dL CLINIC LAB Specimen Anatomical Collection Method Collection Time Receive d Time (Source) Location / / Volume Laterality 03/13/2007 9:08 AM 7 9:13 CDT AM CDT Flako Oconnell MD LABORATORY Performing Organization Address City/State/ZIP Code Phon e Number [facility] [address] [place] [address] [facility] ELECTROCARDIOGRAM, COMP W/READ (03/13/2007) Narrative This result has an attachment that is no t available. Flako Oconnell MD EKG TECHNICAL documented in this encounter Visit Diagnoses Diagnosis Other specified pre-operative examinatio n - Primary Unspecified hypothyroidism MEDICAL HISTORY OF - documented in this encounter Care Teams Manual Qa Tester Relationship Specialty Start Date End Date Angeles Olsen MD PCP - General 02/26/02 08/28/10 documented as of this encounter
--- OUTSIDE RECORDS SUMMARY | 2022-04-16 19:42 | XMS_ITS | Encounter Summary ---
:1955 Author Organization [facility] Address [address] [place] [address]. [place] [address] Care Team Providers Name Role Phone Angeles Olsen MD Primary Care Provider [phone] Reason for Visit Reason Onset Date Comments Refill Request 03/05/2007 levothyroxin Encounter Details Date Type Department Care Team Description 03/05/2007 Refill [facility] Vanessa Byrne Refill Request [address] [facility] MD Vanessa (levothyroxin) [place] [address] [place] [address] [place] [address] (Wo rk) Social History Tobacco Use Types Packs/Day Years Used Date Never Smoker Alcohol Use Standard Drinks/Week Comments Yes 0 (1 standard drink = 0.6 oz pure alcoho l) 1 glass of wine per week 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 Date Recorded 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 Carmenza Fernandez RN documented in this encounter Plan of Treatment Not on filedocumented as of this encounter Visit Diagnoses Diagnosis Unspecified hypothyroidism documented in this encounter Care Teams Interviewing Clerk Relationship Specialty Start Date End Date Angeles Olsen MD PCP - General 02/26/02 08/28/10 documented as of this encounter
--- OUTSIDE RECORDS SUMMARY | 2022-04-16 19:42 | XMS_ITS | Encounter Summary ---
:1955 Author Organization [place] Address [address] [place] [address] Care Team Providers Name Role Phone Angeles Olsen MD Primary Care Provider [phone] Reason for Visit Reason Comments Travel Clinic travelling to [facility] 07/13 Encounter Details Date Type Department Care Team Description 05/22/2005 Office Visit [facility] Marianne Andrews MD COUNSELING OTHER Clinic [place] [address] SPECIFIED (Primary Dx) [address] [facility] [address] [address] [address] 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 Has been to [facility] in [facility]. Had problems with taking Doxycycline-stomach upset. Is UTD on all shots. Denies CP/SOB. Previous Medical History: HEADACHE TM JOINT DISORDER, UNSPEC OSTEOARTHROS NOS-OTHER SITE 2003 Comment: Hands, multiple joints, followed by Rheum FEMALE STRESS INCONTINENCE MEDICAL HISTORY OF - 2002 Comment: DEXA normal MENOPAUSAL DISORDER NEC 2002 Comment: On HRT x 9months, then DC Review of patient's past surgical history indicates: APPENDECTOMY SURGICAL HISTORY OF - Comment: CARPEL TUNNEL NONSPECIFIC PROCEDURE Comment: RIGHT 2ND TOE SURGERY VAG HYST,RMV TUBE/OVARY 08/2002 Comment: Fibroids, on HRT x 10 months, then D/C ALLERGIES: Meperidine Comment: nausea Immunization History: Hepatitis A 10/09/2004 04/30/2005 Hepatitis B 08/30/2003 IPV 10/09/2004 [place] 09/25/2004 td (adult) 08/30/2003 OBJECTIVE: BP 120/70 Pulse 64 Temp (Src) 97.6 (Oral) Ht 5' 5 (1.65m) Wt 186 lbs (84.4kg) LMP Hysterectomy Body Mass Index is 30.95 kg/(m^2). Gen: Awake, alert, answering questions appropriately HEENT: TM's clear bilaterally. Mucous Membranes pink, moist. Sclera nonicteric. CV: RRR No S3, S4, murmurs Lungs: CTA bilaterally Abdomen: + BS. Soft. NT/ND. No masses Extremities: No C/C/E ASSESSMENT:/PLAN: 1. V65.49 COUNSELING OTHER SPECIFIED (primary encounter diagnosis) Note: Travelling to [facility] in June Plan: CIPRO 500 MG OR TABS, TYPHOID VACCINE, ORAL, ATOVAQUONE-PROGUANIL HCL 250-100 MG OR TABS, YELLOW FEVER IMMUNIZATN,LIVE,SUBCUT Return if any problems, or concerns Marianne Andrews MD documented in this encounter Nursing Notes 05/22/2005 10:00 AM CDT >> JORGE SARAH L 05/22/2005 9:57 am Valeri Leticia Keenan presents for above. Initial BP 120/70 Pulse 64 Temp (Src) 97.6 (Oral) Ht 5' 5 (1.65m) Wt 186 lbs (84.4kg) LMPHysterectomy Body Mass Index is 30.95 kg/(m^2).. BP completed using cuff size: regular. .lw documented in this encounter Plan of Treatment Not on filedocumented as of this encounter Visit Diagnoses Diagnosis Other specified counseling - Primary documented in this encounter Care Teams Box Repairer Relationship Specialty Start Date End Date Angeles Olsen MD PCP - General 02/26/02 08/28/10 documented as of this encounter
--- OUTSIDE RECORDS SUMMARY | 2022-04-16 19:42 | XMS_ITS | Encounter Summary ---
:1955 Author Organization [place] Address [address] [place] [address] Care Team Providers Name Role Phone Angeles Olsen MD Primary Care Provider [phone] Reason for Visit Reason Comments Blood Draw Encounter Details Date Type Department Care Team Description 05/30/2006 Orders Only [facility] Eag an HYPOTHYROIDISM NOS; [address] ROUTINE MEDICAL EXAM FABIO Marquez [phone] Social History Tobacco Use Types Packs/Day Years Used Date Never Smoker Alcohol Use Standard Drinks/Week Comments Yes 0 (1 standard drink = 0.6 oz pure alcoho l) 1 glass of wine per week 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 Date Recorded 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 HCL T4 FREE Routine 05/30/2006 9:30 AM Hypothyroidism Nos Res ults for this CDT procedure are i n the results section. HCL FERRITIN Routine 05/30/2006 9:30 AM Routine Medical Exam R esults for this CDT procedure are i n the results section. documented in this encounter Results T4, FREE, SERUM (05/30/2006 9:30 AM CDT) athologist Signature T4 Free 1.09 0.70 - 1.85 [facility] ng/dL [facility] Specimen Anatomical Collection Method Collection Time Receive d Time (Source) Location / / Volume Laterality 05/30/2006 9:30 AM 6 9:33 CDT AM CDT Getachew Mills MD LABORATORY Performing Organization Address City/State/ZIP Code Phon e Number [facility] [address] [place] [address] [facility] FERRITIN (05/30/2006 9:30 AM CDT) athologist Signature Ferritin 65 10 - 300 [facility] ng/mL [place] [facility] Specimen Anatomical Collection Method Collection Time Receive d Time (Source) Location / / Volume Laterality 05/30/2006 9:30 AM 6 9:33 CDT AM CDT Getachew Mills MD LABORATORY Performing Organization Address City/State/ZIP Code Phon e Number [address] [address] [facility] (ABNORMAL) TSH W/FREE T4 REFLEX (05/30/2006 9:30 AM CDT) athologist Signature TSH 6.16 (H) 0.4 - 5.0 [place] mU/L [facility] Specimen Anatomical Collection Method Collection Time Receive d Time (Source) Location / / Volume Laterality 05/30/2006 9:30 AM 6 9:33 CDT AM CDT Getachew Mills MD LABORATORY Performing Organization Address City/State/ZIP Code Phon e Number [facility] [address] [place] [address] [facility] documented in this encounter Visit Diagnoses Diagnosis Unspecified hypothyroidism Routine general medical examination at a health care facility documented in this encounter Care Teams Cell Cleaner Relationship Specialty Start Date End Date Angeles Olsen MD PCP - General 7/12/02 1/11/11 documented as of this encounter
--- OUTSIDE RECORDS SUMMARY | 2022-04-16 19:42 | XMS_ITS | Encounter Summary ---
:1955 Author Organization [place] Address [address] [place] [address]. [place] [address] Care Team Providers Name Role Phone Angeles Olsen MD Primary Care Provider [phone] Reason for Visit Reason Comments Sinus Problem Encounter Details Date Type Department Care Team Description 03/25/2005 Office Visit [facility] Eag Vanessa Byrne ACUTE MAXILLARY [address] [facility] MD Vanessa SINUSITIS (Primary Dx) [place]ABIO Marquez [phone] [facility] [phone] [place] [address] Social History Tobacco Use Types Packs/Day Years Used Date Never Smoker Alcohol Use Standard Drinks/Week Comments Yes 0 (1 standard drink = 0.6 oz pure alcoho l) 1 glass of wine per week 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 Date Recorded 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 Saw Dentist, neg exam. Got z pack, symptoms got worse afterward. Then dentist recommended root canal for upper tooth. This was started but pain did not resolve. Mainly right sided. Headache. Violet D, no nasal spray. EXAM BP 118/82 Pulse 58 Temp (Src) 97.8 (Oral) Ht 5' 4 (1.63m) Wt 182 lbs (82.6kg) LMP Hysterectomy Gen: Alert, fatigued HEENT: Nares with boggy mucosa, clear rhinorrhea. Marked tenderness over maxillary sinuses, right greater than left Dentition: OK, no obvious disrepair COR: S1S2 no murmur Lungs: CTA bilaterally Assessment: 461.0 ACUTE MAXILLARY SINUSITIS (primary encounter diagnosis) Note: informed pt this may be a tooth problem Plan: CEFUROXIME AXETIL 500 MG OR TABS, NASACORT AQ 55 MCG/ACT NA AERS treat as chronic sinusitis. Nasal spray added. Consider head CT if not resolving. Pt agrees with plan documented in this encounter Nursing Notes 03/25/2005 1:00 PM CDT >> TOÑO HANSEN 03/25/2005 1:07 pm Valeri Keenan presents for sinus infection. Initial BP 118/82 Pulse 58 Temp (Src) 97.8 (Oral) Ht 5' 4 (1.63m) Wt 182 lbs (82.6kg) LMPHysterectomy Body Mass Index is 31.22 kg/(m^2). . BP completed using cuff size: regular documented in this encounter Plan of Treatment Not on filedocumented as of this encounter Visit Diagnoses Diagnosis Acute maxillary sinusitis - Primary documented in this encounter Care Teams Director Ehs Relationship Specialty Start Date End Date Angeles Olsen MD PCP - General 02/26/02 08/28/10 documented as of this encounter
--- OUTSIDE RECORDS SUMMARY | 2022-04-16 19:42 | XMS_ITS | Encounter Summary ---
:1955 Author Organization [place] Address [address] [place] [address]. [place] [address] Care Team Providers Name Role Phone Angeles Olsen MD Primary Care Provider Encounter Details Date Type Department Care Team Description 12/02/2005 Orders Only [facility] Eag an Vanessa Mills DIAGNOSIS NOT YET [address] [facility] MD Vanessa DEFINED (Primary Dx) [place] [address] [facility] A [phone] [place] [address] Social History Tobacco Use Types Packs/Day Years Used Date Never Smoker Alcohol Use Standard Drinks/Week Comments Yes 0 (1 standard drink = 0.6 oz pure alcoho l) 1 glass of wine per week 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 Date Recorded Female 06/29/2019 1:44 PM DBAS documented as of this encounter Plan of Treatment Not on filedocumented as of this encounter Procedures Procedure Name Priority Date/Time Associated Diagnosis Comme nts HCL PAP THIN LAYER SCREEN Routine 12/02/2005 DIAGNOSIS NOT Y ET DEFINED documented in this encounter Results A THIN LAYER PAP SCREEN (12/02/2005) Specimen (Source) Anatomical Location Collection Method / Collectio n Time Received Time / Laterality Volume 12/02/2005 Narrative This result has an attachment that is no t available. Vanessa Mills MD LABORATORY documented in this encounter Visit Diagnoses Diagnosis DIAGNOSIS NOT YET DEFINED - Primary documented in this encounter Care Teams Nurse Executive Relationship Specialty Start Date End Date Angeles Olsen MD PCP - General 7/12/02 1/11/11 documented as of this encounter
--- OUTSIDE RECORDS SUMMARY | 2022-04-16 19:42 | XMS_ITS | Encounter Summary ---
:1955 Author Organization [place] Address [address] [place] [address] Care Team Providers Name Role Phone Angeles Olsen MD Primary Care Provider [phone] Encounter Details Date Type Department Care Team Description 12/05/2005 Therapy Visit [place] for Heavenly Haro iamLUMBA GO (Primary Athletic Medicine - PT Dx) [place] [facility] [address] [facility] 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 documented in this encounter Plan of Treatment Not on filedocumented as of this encounter Procedures Procedure Name Priority Date/Time Associated Diagnosis Comme nts ZC MANUAL THER Routine 12/05/2005 5:03 PM CDT Kate SIMMONS,1+REGIONS,EA 15 MIN Z ULTRASOUND THERAPY Routine 12/05/2005 5:03 PM CDT iamLUMBA GO documented in this encounter Visit Diagnoses Diagnosis iamLUMBAGO - Primary Lumbago documented in this encounter Care Teams Shop Mechanic Helper Relationship Specialty Start Date End Date Angeles Olsen MD PCP - General 02/26/02 08/28/10 documented as of this encounter
--- OUTSIDE RECORDS SUMMARY | 2022-04-16 19:42 | XMS_ITS | Encounter Summary ---
:1955 Author Organization [place] Address [address] [place] [address]. [place] [address] Care Team Providers Name Role Phone Angeles Olsen MD Primary Care Provider [phone] Encounter Details Date Type Department Care Team Description 03/12/2007 Results Only [facility] Shane Jameson MD 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 documented in this encounter Results MRI BREAST, W/WO CONTRAST, BILATERAL (03/12/2007 10:55 AM CDT) Specimen (Source) Anatomical Collection Method Collection Time Re ceived Time Location / / Volume Laterality 03/12/2007 10:55 AM CDT Impressions RADIOLOGY RESULTS - 03/13/2007 8:44 AM C DT MRI BOTH BREASTS CLINICAL INFORMATION: High nuclear grade DCIS on stereotactic core biopsy of 1.5 cm grouping of microcalcif ications at 10 o'clock position in right breast. PROCEDURE: Using a dual breast coil the following sequences were obtained: Axial T2 weighted STIR images; sagittal T1 gradient-echo VIBRANT series of both breasts simultane ously immediately before contrast administration and at two-minut e intervals through 8 minutes following gadolinium administration. Sub traction images, color angio mapping, and CAD analysis were performed (Confirma CADstream). FINDINGS: Study is compared with screeni ng bilateral mammography of February 20, 2007 and right diagnostic mammog radha of February 27, 2007. Post core biopsy changes demonstrated at 10 o'clock position in right breast with a 2.4 x 1.7 x 1.5 cm hematom a/seroma at the biopsy site. Surrounding area of contrast enhancement within or immediately rapid washout in keeping with post biopsy reac tive changes. No suspicious masses or abnormal foci of contrast enha ncement with rapid washout demonstrated in the remainder of both br easts. No axillary adenopathy. 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 1. Post stereotactic core biopsy hematom a/seroma at biopsy site and reactive changes about the site. 2. No other foci of malignancy demonstra ramses in either breast. Shane Jameson MD SPECIAL IMAGING STUDIES Performing Organization Address City/State/ZIP Code Phon e Number RADIOLOGY RESULTS documented in this encounter Visit Diagnoses Not on filedocumented in this encounter Care Teams Credit Associate Relationship Specialty Start Date End Date Angeles Olsen MD PCP - General 02/26/02 08/28/10 documented as of this encounter
--- OUTSIDE RECORDS SUMMARY | 2022-04-16 19:42 | XMS_ITS | Encounter Summary ---
:1955 Author Organization [place] Address [address] [place] [address]. 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 HCL TSH W/FREE T4 Routine 01/09/2007 1:28 Hypothyroidism Nos R esults for this REFLEX PM CDT procedure are i n the results section. documented in this encounter Results 25 HYDROXYVITAMIN D2 & D3 (01/09/2007 1:28 PM CDT) P athologist Signature 25 [place] Vit D2 12 ug/L [facility] 25 [place] Vit D3 32 ug/L [facility] 25 [place] Vit D 44 30 - 75 [facility] total ug/L [facility] Comment: Season, race, dietary intake, and treatm ent affect the concentration of 43-slbapvb-Sztoaja D. Values may decrea se during winter months and increase during summer months. Values less than 30 ug/L may indicate Vitamin D deficiency. Specimen Anatomical Collection Method Collection Time Receive d Time (Source) Location / / Volume Laterality 01/09/2007 1:28 PM 7 1:31 CDT PM CDT Vanessa Mills MD LABORATORY Performing Organization Address City/State/ZIP Code Phon e Number [facility] [address] [place] [address] [facility] TSH W/FREE T4 REFLEX (01/09/2007 1:28 PM CDT) athologist Signature TSH 2.79 0.4 - 5.0 [facility] mU/L CLINIC LAB Specimen Anatomical Collection Method Collection Time Receive d Time (Source) Location / / Volume Laterality 01/09/2007 1:28 PM 7 1:31 CDT PM CDT Vanessa Mills MD LABORATORY Performing Organization Address City/State/ZIP Code Phon e Number [facility] [address] [place] [address] [facility] documented in this encounter Visit Diagnoses Diagnosis Unspecified hypothyroidism Unspecified vitamin D deficiency documented in this encounter Care Teams Extractor And Wringer Operator Relationship Specialty Start Date End Date Angeles Olsen MD PCP - General 02/26/02 08/28/10 documented as of this encounter
--- OUTSIDE RECORDS SUMMARY | 2022-04-16 19:42 | XMS_ITS | Encounter Summary ---
:1955 Author Organization [place] Address [address] [place] [address] Care Team Providers Name Role Phone Angeles Olsen MD Primary Care Provider Encounter Details Date Type Department Care Team Description 11/26/2005 Therapy Visit [place] for Heavenly Haro iamLUMBA GO (Primary Athletic Medicine - PT Dx) [place] [facility] [address] [facility]. 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 Please refer to the daily flowsheet for treatment today. documented in this encounter Plan of Treatment Not on filedocumented as of this encounter Procedures Procedure Name Priority Date/Time Associated Diagnosis Comme nts RUST NEUROMUSCULAR Routine 11/26/2005 1:03 PM iamLUMBAGO RE-EDUCATION CDT ZZC THERAPEUTIC EXERCISES Routine 11/26/2005 1:03 PM iamLUMBAG O CDT documented in this encounter Visit Diagnoses Diagnosis iamLUMBAGO - Primary Lumbago documented in this encounter Care Teams Biscuit Machine Operator Relationship Specialty Start Date End Date Angeles Olsen MD PCP - General 02/26/02 08/28/10 documented as of this encounter
--- OUTSIDE RECORDS SUMMARY | 2022-04-16 19:42 | XMS_ITS | Encounter Summary ---
:1955 Author Organization [place] Address [address] [place] [address]. [place] [address] Care Team Providers Name Role Phone Angeles Olsen MD Primary Care Provider [phone] Encounter Details Date Type Department Care Team Description 05/15/2005 Orders Only [facility] Eag an Vanessa Mills DIAGNOSIS NOT YET 14[address] [facility] MD Vanessa DEFINED (Primary Dx) [place] [address] [facility] A [phone] [place] [address] Social History Tobacco Use Types Packs/Day Years Used Date Never Smoker Alcohol Use Standard Drinks/Week Comments Yes 0 (1 standard drink = 0.6 oz pure alcoho l) 1 glass of wine per week Sex Assigned at Date Recorded 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 Vanessa Mills MD PROCEDURES documented in this encounter Visit Diagnoses Diagnosis DIAGNOSIS NOT YET DEFINED - Primary documented in this encounter Care Teams Clinic Nurse Relationship Specialty Start Date End Date Angeles Olsen MD PCP - General 02/26/02 08/28/10 documented as of this encounter
--- OUTSIDE RECORDS SUMMARY | 2022-04-16 19:42 | XMS_ITS | Encounter Summary ---
:1955 Author Organization [place] Address [address] [place] [address]. [place] [address] Care Team Providers Name Role Phone Angeles Olsen MD Primary Care Provider [phone] Encounter Details Date Type Department Care Team Description 01/24/2006 Orders Only [facility] Eag an Vanessa Mills DIAGNOSIS NOT YET 1440 [facility] MD Vanessa DEFINED (Primary Dx) [place] [address] [facility] A [phone] [place] [address] Social History Tobacco Use Types Packs/Day Years Used Date Never Smoker Alcohol Use Standard Drinks/Week Comments Yes 0 (1 standard drink = 0.6 oz pure alcoho l) 1 glass of wine per week Sex Assigned at Date Recorded 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 MAMMOGRAM, SCREENING Routine 01/24/2006 DIAGNOSIS NOT YET DEFINED BILATERAL documented in this encounter Results MAMMOGRAM, SCREENING (01/24/2006) Anatomical Region Laterality Modality Other Specimen (Source) Anatomical Location Collection Method / Collectio n Time Received Time / Laterality Volume 01/24/2006 Narrative This result has an attachment that is no t available. Vanessa Mills MD SPECIAL IMAGING STUDIES documented in this encounter Visit Diagnoses Diagnosis DIAGNOSIS NOT YET DEFINED - Primary documented in this encounter Care Teams Walking Dragline Operator Relationship Specialty Start Date End Date Angeles Olsen MD PCP - General 02/26/02 08/28/10 documented as of this encounter
--- OUTSIDE RECORDS SUMMARY | 2022-04-16 19:42 | XMS_ITS | Encounter Summary ---
:1955 Author Organization [place] Address [address] [place] [address]. [place] [address] Care Team Providers Name Role Phone Angeles Olsen MD Primary Care Provider [phone] Encounter Details Date Type Department Care Team Description 03/05/2006 Orders Only [facility] Eag an Vanessa Mills DIAGNOSIS NOT YET 1440 [facility] MD Vanessa DEFINED (Primary Dx) [place] [address] [facility] A [phone] [place] [address] Social History Tobacco Use Types Packs/Day Years Used Date Never Smoker Alcohol Use Standard Drinks/Week Comments Yes 0 (1 standard drink = 0.6 oz pure alcoho l) 1 glass of wine per week Sex Assigned at Date Recorded 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 Vanessa Mills MD LABORATORY documented in this encounter Visit Diagnoses Diagnosis DIAGNOSIS NOT YET DEFINED - Primary documented in this encounter Care Teams Manager Order Relationship Specialty Start Date End Date Angeles Olsen MD PCP - General 02/26/02 08/28/10 documented as of this encounter
--- OUTSIDE RECORDS SUMMARY | 2022-04-16 19:42 | XMS_ITS | Encounter Summary ---
:1955 Author Organization [place] Address [address] [place] [address]. 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 See immunization record. CORINNE Tran documented in this encounter Plan of Treatment Not on filedocumented as of this encounter Visit Diagnoses Diagnosis Need for prophylactic vaccination and in oculation against viral hepatitis - Primary documented in this encounter Care Teams Pulp Grinder And Blender Relationship Specialty Start Date End Date Angeles Olsen MD PCP - General 02/26/02 08/28/10 documented as of this encounter
--- OUTSIDE RECORDS SUMMARY | 2022-04-16 19:42 | XMS_ITS | Encounter Summary ---
:1955 Author Organization [place] Address [address] [place] [address]. [place] [address] Care Team Providers Name Role Phone Angeles Olsen MD Primary Care Provider [phone] Reason for Visit Reason Comments Cough Encounter Details Date Type Department Care Team Description 07/04/2005 Office Visit [facility] Eag Vanessa Byrne COUGH (Primary Dx) 14[address] [facility] [place] [address] [place] [address] A [phone] [place] [address] (Wo rk) Social History Tobacco Use Types Packs/Day Years Used Date Never Smoker Alcohol Use Standard Drinks/Week Comments Yes 0 (1 standard drink = 0.6 oz pure alcoho l) 1 glass of wine per week Sex Assigned at Date Recorded 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 encounter Last Filed Vital Signs Vital Sign Reading Time Taken Comments Blood Pressure 126/90 07/04/2005 2:30 PM CHIEF OPERATOR HYDROFORMER Pulse 52 07/04/2005 2:30 PM CHIEF OPERATOR HYDROFORMER Temperature 36.2 ??C (97.1 ??F) 07/04/2005 2:30 PM CHIEF OPERATOR HYDROFORMER Respiratory Rate 16 07/04/2005 2:30 PM CHIEF OPERATOR HYDROFORMER Oxygen Saturation 100% 07/04/2005 2:30 PM CHIEF OPERATOR HYDROFORMER Inhaled Oxygen Concentration - - Weight 85.3 kg (188 lb) 07/04/2005 2:30 PM CHIEF OPERATOR HYDROFORMER Height - - Body Mass Index 31.28 05/22/2005 10:00 AM CDT documented in this encounter Progress Notes Florinda Álvarez - 07/04/2005 2:59 PM CST Valeri Keenan presents for cough for the past 6 weeks. Cough is non- productive. Voice has been raspy. Feels like there's post-nasal drainage. Cough worse in the am or with talking. No temp. Initial BP 136/94 Pulse 52 Temp (Src) 97.1 (Oral) Resp 16 Wt 188 lbs (85.3kg) SaO2 100% PF 440L/min LMP Hysterectomy Estimated Body Mass Index is 31.28 kg/(m^2) as calculated from: Height of 5' 5 (1.651m) as of 05/22/05 Weight of 188 lbs (85.276 kg) as of this encounter. BP completed using cuff size: large. Quita Álvarez RN F OPERATOR HYDROFORMER Vanessa Mills - 07/03/2005 10:52 PM CST Valeri Keenan is a 50 year old female here for 6 wk history of uri symptoms, sore throat initially, resolved, then laryngitis,resolved, then cough and post nasal drip. No fevers. Cough worse when talking a lot or going out in cold weather. She has been taking no meds for her symptoms. Non smoker, no hx of asthma. No shortness of breath. Worse in am. Able to sleep. Concerned because sister in law (nonsmoker) just dx with lung cancer. EXAM BP 136/94 Pulse 52 Temp (Src) 97.1 (Oral) Resp 16 Wt 188 lbs (85.3kg) SaO2 100% PF 440L/min LMP Hysterectomy Gen: Alert, NAD, dry cough HEENT: Conjuntiva clear bilaterally. TMs normal bilaterally, OP is moist, minimal posterior erythema. Neck supple, no adenopathy. Nares with boggy mucosa, clear rhinorrhea. COR: S1S2 no murmur Lungs: CTA bilaterally, no wheezes Assessment: 786.2 COUGH (primary encounter diagnosis) Note: peak flow and 02 sats excellent, suspect reactive cough Plan: ADVAIR DISKUS 250-50 MCG/DOSE IN [facility] trial of advair for next month. if not improving, consider cxr, PFTs. Pt comfortable with plan. F OPERATOR HYDROFORMER documented in this encounter Plan of Treatment Not on filedocumented as of this encounter Visit Diagnoses Diagnosis Cough - Primary documented in this encounter Care Teams Wet End Helper Relationship Specialty Start Date End Date Angeles Olsen MD PCP - General 02/26/02 08/28/10 documented as of this encounter
--- OUTSIDE RECORDS SUMMARY | 2022-04-16 19:42 | XMS_ITS | Encounter Summary ---
:1955 Author Organization [place] Address [address] [place] [address]. [place] [address] Care Team Providers Name Role Phone Angeles Olsen MD Primary Care Provider [phone] Encounter Details Date Type Department Care Team Description [address] 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 [facility] PERC Routine 2007 10:29 Results for this BREAST CLIP DURING AM CDT procedure are in BIOPSY, WITH IMAGING the res ults section. [facility] X-RAY SURGICAL Routine 2007 10:29 Result s for this SPECIMEN AM CDT procedure are i n the results section. documented in this encounter Results X-RAY EXAM, BREAST SPECIMEN (2007 10:29 AM CDT) Specimen (Source) Anatomical Collection Method Collection Time Re ceived Time Location / / Volume Laterality 2007 10:29 AM CDT Impressions RADIOLOGY RESULTS - 2007 1:50 PM C DT STEREOTACTIC CORE BIOPSY RIGHT BREAST; S PECIMEN RADIOGRAPH; CLIP PLACEMENT; POSTBIOPSY MAMMOGRAM RIG HT BREAST INDICATION FOR PROCEDURE: Screen-detecte d 1.5 cm moderately suspicious microcalcification cluster upper-outer r ight breast 10 o'clock, 5 cm from nipple identified on [facility] screening mammogram dated February 20, 2007, and subseq uent diagnostic mammogram this office dated February 27, 2007. PROCEDURE: I reviewed the images and dis cussed the management alternatives, including surgical removal , in detail, with the patient and her . The microcalcifications were then identified via an oblique craniocaudal approach. Approxima tely 3 mL lidocaine with epinephrine was infiltrated in the deepe r tissue, additional 2 mL lidocaine without epinephrine in superfi cial and subcutaneous tissue. Repeat digital images were then obtained to confirm microcalcification location. Skin ekaterina was made and 9-gauge Suros needle. A third digital image set was obtained, and the needle t ip was slightly off-axis relative to the microcalcifications. Nee dle repositioned, fourth digital image set obtained showing needl e in excellent position. I then obtained a series of 6 vacuum-siena ramses samples during which there was continuous administration 4 mL lidoc solitario with epinephrine. She had moderate pain with the sixth and final s ample. A specimen radiograph showed numerous microcalcifications in a t least 3 of the samples. I then deployed an X-shaped SenoRx clip to aleyda the site. Postbiopsy mammogram shows the clip at the site whe re microcalcifications had been present; I see no obvious residual microcalcifications, there is a small approximately 2 cm hematoma at t hat site. She tolerated the biopsy without appreciable difficulty ex cept for pain with the last sample, and there was no immediate compl ication. Khadra Evans MD SPECIAL IMAGING STUDIES Performing Organization Address City/State/ZIP Code Phon e Number RADIOLOGY RESULTS IMAGE GUIDED PLACEMENT, METALLIC LOCALIZATION CLIP, PERCUT, DURING A BREAST BX (2007 10:29 AM CDT) Component Value Ref Test Analysis Performed Pathologis t Range Method Time At Signature IMAGECAST RADIOLOGY RESULT STEREOTACTIC CORE BIOPSY RIGHT BREAST; SPECIMEN RADIOGRAPH; RESULTS CLIP PLACEMENT; POSTBIOPSY MAMMOGRAM RIGHT BREAST INDICATION FOR PROCEDURE: Screen-detected 1.5 cm moderately suspicious microcalcification cluster upper-outer right breast 10 o'lilia ck, 5 cm from [facility]ipple [facility] dated February 20, 2007, and subsequent diagnostic mamm ogram this office dated February 27, 2007. PROCEDURE: I reviewed the images and discussed the managemen t alternatives, including surgical removal, in detail, with th e patient and her . The microcalcifications were then identifie d via an oblique craniocaudal approach. Approximately 3 mL lidocaine with epinephrine was infiltrated in the deeper tissue, additional 2 mL lidocaine without epinephrine in superficial and subcutaneou s tissue. Repeat digital images were then obtained to confirm microcal cification location. Skin ekaterina was made and 9-gauge Suros needle. A thi rd digital image set was obtained, and the needle tip was slightly off- axis relative to the microcalcifications. Needle repositioned, fo urth digital image set obtained showing needle in excellent posit ion. I then obtained a series of 6 vacuum-assisted samples during w hich there was continuous administration 4 mL lidocaine with epinephrin e. She had moderate pain with the sixth and final sample. A specimen ra diograph showed numerous microcalcifications in at least 3 of the dennis ples. I then deployed an X-shaped SenoRx clip to aleyda the site. Post biopsy mammogram shows the clip at the site where microcalcificatio ns had been present; I see no obvious residual microcalcifications, there is a small approximately 2 cm hematoma at that site. She tolera ramses the biopsy without appreciable difficulty except for pain with t he last sample, and there was no immediate complication. Specimen (Source) Anatomical Collection Method Collection Time Re ceived Time Location / / Volume Laterality 2007 10:29 AM CDT Khadra Evans MD PROCEDURES Performing Organization Address City/State/ZIP Code Phon e Number RADIOLOGY RESULTS STEREOTACTIC GUIDANCE BREAST BX/ NEEDLE PLACE (2007 10:29 AM CDT) Specimen (Source) Anatomical Collection Method Collection Time Re ceived Time Location / / Volume Laterality 2007 10:29 AM CDT Impressions RADIOLOGY RESULTS - 2007 1:50 PM C DT STEREOTACTIC CORE BIOPSY RIGHT BREAST; S PECIMEN RADIOGRAPH; CLIP PLACEMENT; POSTBIOPSY MAMMOGRAM RIG HT BREAST INDICATION FOR PROCEDURE: Screen-detecte d 1.5 cm moderately suspicious microcalcification cluster upper-outer r ight breast 10 o'clock, 5 cm from nipple identified on [facility] screening mammogram dated February 20, 2007, and subseq uent diagnostic mammogram this office dated February 27, 2007. PROCEDURE: I reviewed the images and dis cussed the management alternatives, including surgical removal , in detail, with the patient and her . The microcalcifications were then identified via an oblique craniocaudal approach. Approxima tely 3 mL lidocaine with epinephrine was infiltrated in the deepe r tissue, additional 2 mL lidocaine without epinephrine in superfi cial and subcutaneous tissue. Repeat digital images were then obtained to confirm microcalcification location. Skin ekaterina was made and 9-gauge Suros needle. A third digital image set was obtained, and the needle t ip was slightly off-axis relative to the microcalcifications. Nee dle repositioned, fourth digital image set obtained showing needl e in excellent position. I then obtained a series of 6 vacuum-siena ramses samples during which there was continuous administration 4 mL lidoc solitario with epinephrine. She had moderate pain with the sixth and final s ample. A specimen radiograph showed numerous microcalcifications in a t least 3 of the samples. I then deployed an X-shaped SenoRx clip to aleyda the site. Postbiopsy mammogram shows the clip at the site whe re microcalcifications had been present; I see no obvious residual microcalcifications, there is a small approximately 2 cm hematoma at t hat site. She tolerated the biopsy without appreciable difficulty ex cept for pain with the last sample, and there was no immediate compl ication. Khadra Evans MD MAMMOGRAPHY Performing Organization Address City/State/ZIP Code Phon e Number RADIOLOGY RESULTS documented in this encounter Visit Diagnoses Not on filedocumented in this encounter Care Teams Installer Relationship Specialty Start Date End Date Angeles Olsen MD PCP - General 02/26/02 08/28/10 documented as of this encounter
--- OUTSIDE RECORDS SUMMARY | 2022-04-16 19:42 | XMS_ITS | Encounter Summary ---
:1955 Author Organization [place] Address [address] [place] [address]. [place] [address] Care Team Providers Name Role Phone Angeles Olsen MD Primary Care Provider [phone] Reason for Referral Specialty Diagnoses / Procedures Referred By Contact Refer red To Contact Vanessa Mills se, MD [address] [place], [place] [address] Referral ID Status Reason Start Date Expiration Date Visits Requ ested Visits Authorized Encounter Details Date Type Department Care Team Description 03/13/2007 Orders Only [facility] Eag an Vanessa Mills DIAGNOSIS NOT YET 1440 [facility] MD Vanessa DEFINED (Primary Dx) [place] [phone] [address] [facility] A [phone] [place] [address] Social History Tobacco Use Types Packs/Day Years Used Date Never Smoker Alcohol Use Standard Drinks/Week Comments Yes 0 (1 standard drink = 0.6 oz pure alcoho l) 1 glass of wine per week 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 Vanessa Mills MD REFERRAL documented in this encounter Visit Diagnoses Diagnosis DIAGNOSIS NOT YET DEFINED - Primary documented in this encounter Care Teams Software Deployment Engineer Relationship Specialty Start Date End Date Angeles Olsen MD PCP - General 02/26/02 08/28/10 documented as of this encounter
--- OUTSIDE RECORDS SUMMARY | 2022-04-16 19:42 | XMS_ITS | Encounter Summary ---
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 documented in this encounter Results RT MAMMOGRAM, ONE BREAST (02/27/2007 12:59 PM CDT) Specimen (Source) Anatomical Collection Method Collection Time Re ceived Time Location / / Volume Laterality 02/27/2007 12:59 PM CDT Impressions RADIOLOGY RESULTS - 03/03/2007 10:27 PM CDT EXAM: MAMMOGRAM DIAGNOSTIC UNILATERAL RI GHT HISTORY: Abnormal screen SRC. FINDINGS: This 51-year-old female is rec alled from the screening mammogram of 02/20/2007 to assess newly evolved small cluster of microcalcifications in the anterior righ t upper-outer quadrant. Magnification views were obtained in the CC and true lateral position. They demonstrate pleomorphic microcalcif ications contained in a length of just over a centimeter by under a valentín timeter in width. These are suspicious, and I would recommend obtain ing a stereotactic core needle biopsy. I have discussed these findings with Valeri this afternoon in some detail. CONCLUSION: 1. Fatty breast tissue density. 2. Category 4c, recommend a right breast stereotactic core needle biopsy. 3.We will assist the patient in scheduli ng this procedure today. Khadra Evans MD SPECIAL IMAGING STUDIES Performing Organization Address City/State/ZIP Code Phon e Number RADIOLOGY RESULTS documented in this encounter Visit Diagnoses Not on filedocumented in this encounter Care Teams Acetylene Cutter Relationship Specialty Start Date End Date Angeles Olsen MD PCP - General 02/26/02 08/28/10 documented as of this encounter
--- OUTSIDE RECORDS SUMMARY | 2022-04-16 19:42 | XMS_ITS | Encounter Summary ---
:1955 Author Organization [place] Address [address] [place] [address]. [place] [address] Care Team Providers Name Role Phone Angeles Olsen MD Primary Care Provider [phone] Encounter Details Date Type Department Care Team Description 05/15/2005 Orders Only [facility] Eag an Vanessa Mills DIAGNOSIS NOT YET 14[address] 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 Vanessa Mills MD LABORATORY documented in this encounter Visit Diagnoses Diagnosis DIAGNOSIS NOT YET DEFINED - Primary documented in this encounter Care Teams Switcher Relationship Specialty Start Date End Date Angeles Olsen MD PCP - General 02/26/02 08/28/10 documented as of this encounter
--- OUTSIDE RECORDS SUMMARY | 2022-04-16 19:42 | XMS_ITS | Encounter Summary ---
:1955 Author Organization [place] Address [address] [place] [address]. [place] [address] Care Team Providers Name Role Phone Angeles Olsen MD Primary Care Provider [phone] Reason for Visit Reason Onset Date Comments Formulary Issue 10/28/2005 Doxycycline Obion Encounter Details Date Type Department Care Team Description 10/28/2005 Telephone [facility] Eag an Vanessa Mills Formulary Issue [address] [facility] MD Vanessa (Doxycycline [place]) [place] [address] [address] [facility] [phone] [place] [address] Social History Tobacco Use Types Packs/Day Years Used Date Never Smoker Alcohol Use Standard Drinks/Week Comments Yes 0 (1 standard drink = 0.6 oz pure alcoho l) 1 glass of wine per week Sex Assigned at Date Recorded 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 Would you be willing to prescribe this instead? D. Álvarez RN EY RESEARCH CENTER DIRECTOR documented in this encounter Plan of Treatment Not on filedocumented as of this encounter Visit Diagnoses Diagnosis Other specified counseling - Primary documented in this encounter Care Teams Marketing Summer Intern Relationship Specialty Start Date End Date Angeles Olsen MD PCP - General 02/26/02 08/28/10 documented as of this encounter
--- OUTSIDE RECORDS SUMMARY | 2022-04-16 19:42 | XMS_ITS | Encounter Summary ---
:1955 Author Organization [place] Address [address] [place] [address] Care Team Providers Name Role Phone Angeles Olsen MD Primary Care Provider [phone] Reason for Visit Reason Comments [place] Results Reading Encounter Details Date Type Department Care Team Description 09/27/2004 Allied Health/Nurse [facility] Eag [place]oux Results Reading Visit [address] [place] [address] Social History Tobacco Use Types Packs/Day Years Used Date Never Smoker Alcohol Use Standard Drinks/Week Comments Yes 0 (1 standard drink = 0.6 oz pure alcoho l) 1 glass of wine per week Sex Assigned at Date Recorded 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 No induration. No swelling. No redness. Tracy Alvarez MA documented in this encounter Plan of Treatment Not on filedocumented as of this encounter Visit Diagnoses Not on filedocumented in this encounter Care Teams Asbestos Cloth Inspector Relationship Specialty Start Date End Date Angeles Olsen MD PCP - General 02/26/02 08/28/10 documented as of this encounter
--- OUTSIDE RECORDS SUMMARY | 2022-04-16 19:42 | XMS_ITS | Encounter Summary ---
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 documented in this encounter Results DIAGNOSTIC IMAGING AGENT (03/16/2007 10:54 AM CDT) [facility] Method Time Signature IMAGECAST RADIOLOGY RESULT Right BREAST SENTINEL LYMPH NODE INJECTION RESULTS REASON FOR EXAM: Right breast cancer. Schedule mastectomy at 1:00 p.m. FINDINGS: The right breast was cleansed with sterile soap. ? ?811 uCi technetium 99m labeled filtered sulfur colloid was injected at the inferior areolar margin. There were no complications. Specimen (Source) Anatomical Collection Method Collection Time Re ceived Time Location / / Volume Laterality 03/16/2007 10:54 AM CDT Shane Jameson MD GENERAL SUPPLIES Performing Organization Address City/State/ZIP Code Phon e Number RADIOLOGY RESULTS documented in this encounter Visit Diagnoses Not on filedocumented in this encounter Care Teams Supervisor Finishing Room Relationship Specialty Start Date End Date Angeles Olsen MD PCP - General 02/26/02 08/28/10 documented as of this encounter
--- OUTSIDE RECORDS SUMMARY | 2022-04-16 19:42 | XMS_ITS | Encounter Summary ---
:1955 Author Organization [place] Address [address] [place] [address]. [place] [address] Care Team Providers Name Role Phone Angeles Olsen MD Primary Care Provider [phone] Reason for Referral - Closed Specialty Diagnoses / Procedures Referred By Contact Refer red To Contact Diagnoses Generalized osteoarthrosis, unspecified site Getachew Mills MD [address] [place], [place] [address] Referral ID Status Reason Start Date Expiration Date Visits Requ ested Visits Authorized [id number] Closed 10/22/2005 08/17/2011 1 1 N SERVICES PROGRAM SPECIALIST Reason for Visit Reason Comments Physical Encounter Details Date Type Department Care Team Description 10/22/2005 Office Visit [facility] Eag an Getachew Mills ROUTINE MEDICAL EXAM (Primar y Dx); 14[address] [facility] MD Vanessa LUMBAGO; [place] [phone] [place] PAIN IN LIMB; [phone] A GENERAL OSTEOARTHROSIS; [place], [place] COUNSELING O THER SPECIFIED [id number] Social History Tobacco Use Types Packs/Day Years Used Date Never Smoker Alcohol Use Standard Drinks/Week Comments Yes 0 (1 standard drink = 0.6 oz pure alcoho l) 1 glass of wine per week Sex Assigned at Date Recorded Female 06/29/2019 1:44 PM HUMAN SERVICES PROGRAM SPECIALIST documented as of this encounter Last Filed Vital Signs Vital Sign Reading Time Taken Comments Blood Pressure 110/72 10/22/2005 9:00 AM HUMAN SERVICES PROGRAM SPECIALIST Pulse 56 10/22/2005 9:00 AM HUMAN SERVICES PROGRAM SPECIALIST Temperature - - Respiratory Rate 16 10/22/2005 9:00 AM HUMAN SERVICES PROGRAM SPECIALIST Oxygen Saturation - - Inhaled Oxygen Concentration - - Weight 86.2 kg (190 lb) 10/22/2005 9:00 AM HUMAN SERVICES PROGRAM SPECIALIST Height 163.8 cm (5' 4.5) 10/22/2005 9:00 AM HUMAN SERVICES PROGRAM SPECIALIST Body Mass Index 32.11 10/22/2005 9:00 AM HUMAN SERVICES PROGRAM SPECIALIST documented in this encounter Progress Notes Getachew Mills - 11/16/2005 4:03 PM HUMAN SERVICES PROGRAM SPECIALIST Addended by: GETACHEW MILLS on: 11/16/2005 4:03:31 PM Modules accepted: Orders N SERVICES PROGRAM SPECIALIST Florinda Álvarez - 10/22/2005 9:20 AM CST Valeri Leticia Keenan presents for physical exam. Initial BP 110/72 Pulse 56 Resp 16 Ht 5' 4.5 (1.64m) Wt 190 lbs (86.2kg) LMP HysterectomyBody mass index is 32.12 kg/(m^2).. BP completed using cuff size: large. HEALTH CARE MAINTENANCE: LMP: Hysterectomy and HRT - Stopped 2002-Was on HRT for 8 months. Pap: Pt sees information management manager for Pap smears TECHNICAL PUBLICATIONS MANAGER: none Mammogram: Gets screening with information management manager Colon Ca Screen: Colonoscopy 05/15/05 DEXA scan: 2002 Tetanus: 08/30/03 Pneumovax: NA SAFETY: ======= Do you feel safe in your relationship(s)? YES Do you have a gun in your home? Yes Do you wear your seatbelt regularly? YES Do you use sunscreen? YES Fasting? YES Concerns: 1) Lower extremity aching from knees down-occurs mainly at night. 2) Lower back issues in May. And had two steroid injections, however, still having back pain. Dry Wall Nailer recommended PT. Pt will need a referral for this. Quita Álvarez RN N SERVICES PROGRAM SPECIALIST GeneGetachew - 10/22/2005 8:08 AM CST Valeri Keenan is here for a general check up. She is fasting. Other concerns today: 1) Aching in lower legs at night. Took 3 advil at bedtime which helped. Celebrex was increased from 1 to 2 a day and extra strenth tylenol was added. Started working out last March at [employer]. 2) Low back pain, May 2005, dog jerked her when she was walking. Pain in lower back and radiates to both legs. S/P 2 steroid injections. Dry Wall Nailer recommended PT. Pt needs referral 3)Travel to [place], asking for doxycylcine rx for malaria prophylaxis. Also, cipro for traveler's diarrhea. Leaving November 10. Past Medical History Diagnosis Date ??? HEADACHE ??? TM JOINT DISORDER, UNSPEC ??? OSTEOARTHROS NOS-OTHER SITE 2003 Hands, multiple joints, followed by Rheum ??? FEMALE STRESS INCONTINENCE ??? MEDICAL HISTORY OF - 2002 DEXA normal ??? MENOPAUSAL DISORDER NEC 2002 On HRT x 9months, then DC ??? PERS HX COLONIC POLYPS 04/2005 adenoma HABITS: Tob: none ETOH: 1/week Calcium: 2/day + 1 supplement daily Caffeine: 2/ week Exercise: Not currently exercising, due to back pain Walks 1 1/2 miles per day SECTION HAND HISTORY: sees sheet metal technician for pap smears LMP: No LMP date recorded. Reason: Hysterectomy. Self Breast exam: yes PMH, PSH, FH, medications, allergies and immunizations are updated this visit. ROS CONSTITUTIONAL:NEGATIVE for fever, chills, Positive for 20 pound weight gain in one year INTEGUMENTARY/SKIN: NEGATIVE for worrisome rashes, moles [...] habits :NEGATIVE for frequency, dysuria, or hematuria MUSCULOSKELETAL:Positive for significant arthralgias, osteoarthritis, no RA, sees fitter placer. Low back pain, leg pain at night. NEURO: NEGATIVE for weakness, dizziness or paresthesias ENDOCRINE: NEGATIVE for polyuria/dipsia, temperature intolerance, skin/hair changes HEME/ALLERGY/IMMUNE: NEGATIVE for bleeding problems PSYCHIATRIC: NEGATIVE for changes in mood or affect EXAM BP 110/72 Pulse 56 Resp 16 Ht 5' 4.5 (1.64m) Wt 190 lbs (86.2kg) LMP Hysterectomy BMI = Body mass index is 32.12 kg/(m^2). GENERAL APPEARANCE: Alert, pleasant, NAD, Overweight EYES: PERRL, EOMI, conjunctiva clear HENT: TM [...] MS: extremities normal- no gross deformities noted, Point tenderness over LS spine and paralumbar muscle groups. No palpable tenderness in calves. SKIN: no suspicious lesions or rashes NEURO: Normal strength and tone, sensory exam grossly normal, DTR normoreflexive in upper and lower extremities PSYCH: mentation appears normal. and affect normal/bright. EXT: no peripheral edema, pedal pulses palpable Assessment: V70.0 ROUTINE MEDICAL EXAM (primary encounter diagnosis) Note: Anticipatory guidance given today regarding diet, exercise and calcium intake, safety. SBE taught. Plan: DEXA, BONE DENSITY, AXIAL SKEL, A.M.A. LIPID PANEL, CBC WITH PLATELETS Discussed need for weight loss, change in lifestyle, eating habits, exercise. 724.2 LUMBAGO Note: chronic problem, injury last year. Plan: refer to [facility], continue celebrex, send completed labs to Dr. Narayanan 729.5 PAIN IN LIMB Note: lower calf pain at night, cannot rule out restless legs Plan: FERRITIN If < 50 suggest iron supplement 715.00 GENERAL OSTEOARTHROSIS Note: generalized pain, followed by fitter placer Plan: A.M.A. COMPREHENSIVE MET.PANEL, RHEUMATOID FACTOR, CRP, INFLAMMATION, CONSULT [facility] (PT & CHIRO) Continue current meds, check labs and send to Dr. Narayanan G45.49 COUNSELING OTHER SPECIFIED Note: travel to [place] starting November 10. Immunizations UTD Plan: CIPRO 500 MG OR TABS, DOXYCYCLINE MONOHYDRATE 100 MG OR TABS, OFFICE/OUTPT VISIT,EST,LEVL III Rx sent to pharmacy with specific instructions. N SERVICES PROGRAM SPECIALIST documented in this encounter Plan of Treatment Not on filedocumented as of this encounter Procedures Procedure Name Priority Date/Time Associated Diagnosis Comme nts HCL CRP, INFLAMMATION Routine 10/22/2005 10:01 General Osteoar throsis Results for this AM HUMAN SERVICES PROGRAM SPECIALIST procedure are i n the results section. CL AFF CBC WITH Routine 10/22/2005 10:01 Routine Medical Exam Results for this PLATELETS AM HUMAN SERVICES PROGRAM SPECIALIST procedure are i n the results section. HCL COMPREHENSIVE Routine 10/22/2005 10:01 General Osteoarthro sis Results for this METABOLIC PANEL AM HUMAN SERVICES PROGRAM SPECIALIST procedure ar e in the results section. HCL FERRITIN Routine 10/22/2005 10:01 Pain In Limb Results for this AM HUMAN SERVICES PROGRAM SPECIALIST procedure are i n the results section. HCL RHEUMATOID FACTOR Routine 10/22/2005 10:01 General Osteoar throsis Results for this AM HUMAN SERVICES PROGRAM SPECIALIST procedure are i n the results section. CL AFF A.M.A. LIPID Routine 10/22/2005 10:01 Routine Medical E xam Results for this PANEL AM HUMAN SERVICES PROGRAM SPECIALIST procedure are i n the results section. documented in this encounter Results FERRITIN (10/22/2005 10:01 AM HUMAN SERVICES PROGRAM SPECIALIST) P athologist Signature Ferritin 56 10 - 300 [facility] ng/mL [facility] Specimen Anatomical Collection Method Collection Time Receive d Time (Source) Location / / Volume Laterality 10/22/2005 10:01 10/22/2005 AM HUMAN SERVICES PROGRAM SPECIALIST 10:04 AM HUMAN SERVICES PROGRAM SPECIALIST Getachew Mills MD LABORATORY Performing Organization Address City/State/ZIP Code Phon e Number [facility] [address] [place], [place] [phone] [place] [address] LABS CRP, INFLAMMATION (10/22/2005 10:01 AM HUMAN SERVICES PROGRAM SPECIALIST) Analysis Performed At Patho logist Time Signature CRP Inflammation 3.0 0.0 - 8.0 [facility] mg/L [facility] Comment: The result units for this test have been changed: mg/L = mg/dL x 10 Specimen Anatomical Collection Method Collection Time Receive d Time (Source) Location / / Volume Laterality 10/22/2005 10:01 10/22/2005 AM HUMAN SERVICES PROGRAM SPECIALIST 10:04 AM HUMAN SERVICES PROGRAM SPECIALIST Getachew Mills MD LABORATORY Performing Organization Address City/State/ZIP Code Phon e Number [facility] [address] [place], [place] [phone] [place] [address] LABS RHEUMATOID FACTOR (10/22/2005 10:01 AM HUMAN SERVICES PROGRAM SPECIALIST) P athologist Signature Rheumatoid <20 0 - 20 [facility] Factor IU/mL [facility] Specimen Anatomical Collection Method Collection Time Receive d Time (Source) Location / / Volume Laterality 10/22/2005 10:01 10/22/2005 AM HUMAN SERVICES PROGRAM SPECIALIST 10:04 AM HUMAN SERVICES PROGRAM SPECIALIST Getachew Mills MD LABORATORY Performing Organization Address City/State/ZIP Code Phon e Number [facility] [address] [place], [place] [phone] [place] [address] LABS (ABNORMAL) A.M.A. COMPREHENSIVE MET.PANEL (10/22/2005 10:01 AM HUMAN SERVICES PROGRAM SPECIALIST) Analysis Performed At Patho logist Time Signature Sodium 142 133 - 144 [facility] mmol/L [facility] Potassium 4.5 3.4 - 5.3 [facility] mmol/L [facility] Chloride 102 94 - 109 [facility] mmol/L [facility] Carbon Dioxide 29 20 - 32 [facility] mmol/L [facility] Anion Gap 11 6 - 17 [facility] mmol/L [facility] Glucose 101 60 - 110 [facility] mg/dL [facility] Urea Nitrogen 17 7 - 30 [facility] mg/dL [facility] Creatinine 0.90 0.60 - [facility] 1.30 mg/dL [facility] GFR Estimate 70 >60 [facility] mL/min/1.7 [facility] m2 LAB GFR Estimate If 85 >60 [facility] Black mL/min/1.7 [facility] m2 LAB Calcium 9.6 8.5 - 10.4 [facility] mg/dL [facility] Bilirubin Total 0.5 0.2 - 1.3 [facility] mg/dL [facility] Albumin 4.5 3.3 - 4.6 [facility] g/dL [facility] Protein Total 8.3 (H) 6.0 - 8.2 [facility] g/dL [facility] Alkaline 84 40 - 150 [facility] Phosphatase U/L [facility] ALT 31 0 - 50 U/L [facility] AST 32 0 - 45 U/L [facility] Specimen Anatomical Collection Method Collection Time Receive d Time (Source) Location / / Volume Laterality 10/22/2005 10:01 10/22/2005 AM HUMAN SERVICES PROGRAM SPECIALIST 10:04 AM HUMAN SERVICES PROGRAM SPECIALIST Getachew Mills MD LABORATORY Performing Organization Address [facility]/ZIP Code Phon e Number [facility] [address] [place] [address] [phone] [facility] CBC WITH PLATELETS (10/22/2005 10:01 AM HUMAN SERVICES PROGRAM SPECIALIST) athologist Signature WBC 4.1 4.0 - 11.0 [facility] 10e9/L [facility] RBC Count 4.72 3.8 - 5.2 [facility] 10e12/L [facility] Hemoglobin 14.3 11.7 - [facility] 15.7 g/dL [facility] LAB Hematocrit 40.7 35.0 - [facility] 47.0 % [facility]IN[facility] LAB MCV 86 78 - 100 [facility] MCH 30.3 26.5 - [facility] 33.0 pg CLINIC LAB MCHC 35.1 32.0 - [facility] 36.0 g/dL CLINIC LAB RDW 13.8 10.0 - [facility] 15.0 % [facility]IN[facility] LAB Platelet Count 326 150 - 450 [facility] 10[facility]L [facility] Specimen Anatomical Collection Method Collection Time Receive d Time (Source) Location / / Volume Laterality 10/22/2005 10:01 10/22/2005 AM HUMAN SERVICES PROGRAM SPECIALIST 10:04 AM HUMAN SERVICES PROGRAM SPECIALIST Getachew Mills MD LABORATORY Performing Organization Address City/[facility]/ZIP Code Phon e Number [facility] [address] [place] [address] [phone] [facility] (ABNORMAL) A.M.A. LIPID PANEL (10/22/2005 10:01 AM HUMAN SERVICES PROGRAM SPECIALIST) P athologist Signature Cholesterol 204 (H) 0 - 200 [facility] mg/dL CLINIC LAB Comment: LDL Cholesterol is the primary guide to therapy: LDL-cholesterol goal in high risk patients is <100 mg/dL and in very high risk patients is <70 mg/dL. The NCEP recommends further evaluation of: patients with cholesterol <200 mg/dL if additional risk factors are present, cholesterol >240 mg/dL, triglycerides >150 mg/dL, or HDL <40 mg/dL. Triglycerides 79 0 - 150 mg/dL [facility] HDL Cholesterol 55 50 - 110 mg/dL [facility] LDL Cholesterol Calculated 134 (H) 0 - 129 mg/dL [facility] Comment: LDL Cholesterol is the primary guide to therapy: LDL-cholesterol goal in high risk patients is <100 mg/dL and in very high risk patients is <70 mg/dL. VLDL-Cholesterol 16 0 - 30 mg/dL [facility] Cholesterol/HDL Ratio 3.7 0.0 - 5.0 [facility] Specimen Anatomical Collection Method Collection Time Receive d Time (Source) Location / / Volume Laterality 10/22/2005 10:01 10/22/2005 AM HUMAN SERVICES PROGRAM SPECIALIST 10:04 AM HUMAN SERVICES PROGRAM SPECIALIST Getachew Mills MD LABORATORY Performing Organization Address City/State/ZIP Code Phon e Number [facility] [address] [place] [address] [facility] documented in this encounter Visit Diagnoses Diagnosis Routine general medical examination at a health care facility - Primary Lumbago Pain in limb Generalized osteoarthrosis, unspecified site Other specified counseling documented in this encounter Care Teams Papier Mache' Molder Relationship Specialty Start Date End Date Angeles Olsen MD PCP - General 02/26/02 08/28/10 documented as of this encounter
--- OUTSIDE RECORDS SUMMARY | 2022-04-16 19:42 | XMS_ITS | Encounter Summary ---
:1955 Author Organization [place] Address [address] [place] [address] Care Team Providers Name Role Phone Angeles Olsen MD Primary Care Provider [phone] Encounter Details Date Type Department Care Team Description 12/03/2005 Therapy Visit [place] for Heavenly Haro iamLUMBA GO (Primary Athletic Medicine - PT Dx) [facility] [address] [facility]. 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 documented in this encounter Plan of Treatment Not on filedocumented as of this encounter Procedures Procedure Name Priority Date/Time Associated Diagnosis Comme nts [facility] MANUAL THER Routine 12/03/2005 5:17 PM iaBridgette SIMMONS,1+[facility],EA 15 MIN CDT [facility] NEUROMUSCULAR Routine 12/03/2005 5:17 PM iamLUMBAGO RE-EDUCATION CDT [facility] THERAPEUTIC EXERCISES Routine 12/03/2005 5:17 PM iamLUMBAG O CDT documented in this encounter Visit Diagnoses Diagnosis iamLUMBAGO - Primary Lumbago documented in this encounter Care Teams Skiver Machine Relationship Specialty Start Date End Date Angeles Olsen MD PCP - General 02/26/02 08/28/10 documented as of this encounter
--- OUTSIDE RECORDS SUMMARY | 2022-04-16 19:43 | XMS_ITS | Encounter Summary ---
:1955 Author Organization [place] Address [facility] [place] [address] Care Team Providers Name Role Phone Angeles Olsen MD Primary Care Provider [phone] Encounter Details Date Type Department Care Team Description 02/15/2004 Operative Report Broderick Mary MD (Aluminum Fabrication Supervisor) [place] [facility] [address] AST SURG [address] [facility] [address] [place], [place] [phone] (Wo rk) Social History Tobacco Use Types Packs/Day Years Used Date Never Smoker Alcohol Use Standard Drinks/Week Comments Yes 0 (1 standard drink = 0.6 oz pure alcoho l) 1 glass of wine per week Sex Assigned at Date Recorded Female 06/29/2019 1:44 PM 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 POSTOPERATIVE DIAGNOSIS:Bilateral upper eyelid ptosis. OPERATION:Repair bilateral upper eyelid ptosis. ANESTHESIA: Local standby. COMPLICATIONS: None. INDICATIONS FOR SURGERY: Valeri Rojas had bilateral upper eyelid ptosis with the eyelids obstructing the vision, interfering with daily activities. PROCEDURE: The patient was taken to the operating room and received a local block of 2% lidocaine without epinephrine. The block was administered transcutaneously along the eyelid crease and the planned incision line was outlined with a marking pen. The patient was then prepped and draped in the usual sterile fashion. The incision was then made along the previously marked area. A moderate amount of skin was excised taking care to allow adequate closure and avoid lagophthalmos. Sigifredo scissors were then used to develop a plane over the septum. The septum was opened and a small amount of orbital fat was removed. Levator aponeurosis was then disinserted from the tarsus and a plane was developed between the aponeurosis and the underlying tarsus and Funez's muscle. A 5-0 Mersilene suture was then passed through the tarsus in a lamellar fashion and externalized through the levator aponeurosis. This was tied off in a temporary fashion and the patient was asked to sit up and the eyelid's height and contour evaluated. This was repeated until a satisfactory height and contour were obtained, and two additional sutures were placed lateral to the initial suture. This resulted in a normal contour and height to the both upper eyelids. Attempted overcorrection of 0.5 mm was obtained. The redundant levator aponeurosis was then excised and the skin was then closed with running 6-0 fast absorbing suture. The patient left the operating room in stable condition. BRODERICK MARY MD MT: taj Document: [id number] [place], [place] Name: VALERI ROJAS OPERATIVE REPORT Page 2 of 2 LCN: SDS DSC: 02/15/2004 [place], [place] Name: VALERI ROJAS MR#: : Procedure Date: 2018-10-06 1955 02/15/2004 Surgeon: BRODERICK MARY MD OPERATIVE REPORT Page 1 of 2 documented in this encounter Plan of Treatment Not on filedocumented as of this encounter Visit Diagnoses Not on filedocumented in this encounter Care Teams Mate First Relationship Specialty Start Date End Date Angeles Olsen MD PCP - General 02/26/02 08/28/10 documented as of this encounter
--- OUTSIDE RECORDS SUMMARY | 2022-04-16 19:43 | XMS_ITS | Encounter Summary ---
:1955 Author Organization [place] Address [address] [place] [id number] Care Team Providers Name Role Phone Angeles Olsen MD Primary Care Provider [phone] Encounter Details Date Type Department Care Team Description 08/30/2003 Abstract [facility] [address] [address] Social History Tobacco Use Types Packs/Day Years Used Date Never Smoker Alcohol Use Standard Drinks/Week Comments Yes 0 (1 standard drink = 0.6 oz pure alcoho l) 1 glass of wine per week Sex Assigned at Date Recorded Female 06/29/2019 1:44 PM DOCUMENT IMAGING SPECIALIST documented as of this encounter Plan of Treatment Not on filedocumented as of this encounter Visit Diagnoses Not on filedocumented in this encounter Care Teams Commercial Roofing Estimator Relationship Specialty Start Date End Date Angeles Olsen MD PCP - General 02/26/02 08/28/10 documented as of this encounter
--- OUTSIDE RECORDS SUMMARY | 2022-04-16 19:43 | XMS_ITS | Encounter Summary ---
:1955 Author Organization [place] Address [address] [place] [address]. [place] [address] Care Team Providers Name Role Phone Angeles Olsen MD Primary Care Provider [phone] Reason for Visit Reason Comments Pre-Op Exam Blephoroplasty Encounter Details Date Type Department Care Team Description 02/13/2004 Office Visit [facility] Vanessa Rasheed PREOP EXAM OTHER [address] MD Vanessa SPECIFIED (Primary Dx) [place] [address] [address] [facility] [phone] [place] [address] Social History Tobacco Use Types Packs/Day Years Used Date Never Smoker Alcohol Use Standard Drinks/Week Comments Yes 0 (1 standard drink = 0.6 oz pure alcoho l) 1 glass of wine per week Sex Assigned at Date Recorded 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 Date of Surgery: 02/15/04 Surgeon: Dr. Jayesh Mary [facility] Facility: [facility] Type of Anesthesia Anticipated: to be determined Primary Physician: Pingle HABITS: ======= Pat delphine is not smoker. 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 PAST SURGICAL HISTORY Review of flaquito ent's past surgical history indicates: NONSPECIFIC PROCEDURE Comment: APPY NONSPECIFIC PROCEDURE Comment: CARPEL MAKEDA MCKAYLA NONSPECIFIC PROCEDURE Comment: RIGHT 2ND TOE SURGERY VAG HYST,RMV TUBE/OVARY 08/2002 Comment: Fibroids, on HRT x 10 months , then D/C CURRENT MEDICATIONS Active Medications as of 02/13/2004: PROZAC 20 MG OR CAPS, 1 CAP PO QD (Once per day) in AM, D: , R: CELEBREX 200 MG OR CAPS, 1 Capsule daily, D: , R : UNKNOWN MED DOSAGE, Glucosamine Chondroitin 3tabs po qd, D: , R: UNKNOWN MED DOSAGE, Calcium 1 ta blet po qd, D: , R: VITAMIN C 500 MG OR TABS, 1 tablet po qd, D: , R: CITRUCEL OR POWD, 1 dose in a m, D: , R: SURFAK 240 MG OR CAPS, 2 capsules in am and 2 capsules in pm, D: , R: ADVIL 200 MG OR TA BS, 3 tablets po am, D: , R: FLEXERIL 10 MG OR TABS, 1 po q hs, D: 30, R: 0 ALLERGIES ========= Al lergies As of Date: 02/13/2004 Noted Reaction MEPERIDINE 08/30/2003 na usea Date Verified: 02/13/2004 FAMILY HISTORY Review of patient's family history i ndicates: C.A.D. Father Comment: SC 53, at 58 Ne urological Father Comment: Parkinsons Neurological Mother Comment: headaches Arthritis Mother Comment: DJD Hypertension Mother Hypertension Brother Comment: Two brothers with HTN Stroke Maternal Grandmother Osteoporosis Paternal Grandmother Circulatory Paternal Grandmother Comment: Brain Aneurysm Breast CA No family hx of Colon CA No family hx of Osteoporosis Mother Osteoporosis Paternal Grandmother HABITS ==== == Tobacco Use: Never Alcohol Use: Yes Comment: 1 glass of wine per week REVIEW OF SYSTEMS CONSTITUTIONAL:NEGATIVE for fever, chills, concerted 15 pound we ight loss since Aug 2003 EYES: NEGATIVE for vision changes or irritation and some limited vision seco ndary to eyelid problem ENT/MOUTH: NEGATIVE for ear, mouth and throat problems RESP:NEGATIVE for sign ificant cough or SOB CV: NEGATIVE for chest pain, palpitations or peripheral edema GI: NEGATIVE for n ausea, abdominal pain, heartburn, or change in bowel habits NEURO: NEGATIVE for weakness, dizziness o r paresthesias ENDOCRINE: NEGATIVE for temperature intolerance, skin/hair changes HEME/ALLERGY/IMMUNE : NEGATIVE for bleeding problems. EXAM ==== BP 92/78 Pulse 56 Ht 5' 4 (1.63m) Wt 177 lbs (8 0.3kg) LMP Hysterectomy GENERAL APPEARANCE: healthy, alert and no distress EYES: Eyes grossly norm al to inspection, PERRL, conjunctivae and sclerae normal and upper lid lag bilaterally HENT: ear burton ls and TM's normal and nose and mouth without ulcers or lesions NECK: no adenopathy, no asymmetry, ma sses, or scars and thyroid normal to palpation RESP: lungs clear to auscultation - no rales, rhonchi or wheezes CV: regular rates and rhythm, normal S1 S2, no S3 or S4 and no murmur, click or rub ABDOME N: soft, nontender, without hepatosplenomegaly or masses and bowel sounds normal SKIN: no suspicious lesions or rashes NEURO: Normal strength and tone, sensory exam grossly normal, mentation intact and speech normal. DIAGNOSTICS: 1. EKG: appears normal, sinus bradycardia, normal axis, normal interva ls, no acute ST/T changes c/wischemia, no LVH by voltage criteria, unchanged from previous tracings 2. CXR: not indicated 3. Labs: not indicated IMPRESSION V72.83 PREOP EXAM OTHER SPECIFI ED (primary encounter diagnosis) Note: Blepharoplasty, bilateral Plan: ELECTROCARDIOGRAM, COMP W/BETH D no contraindication to surgery For above listed surgery and anesthesia: Patient is Low ris k for surgery and perioperative complications. RECOMMENDATIONS Proceed without furt her diagnostic evaluation. Signed Electronically by VANESSA MILLS documented in this encounter Nursing Notes 02/13/2004 8:00 AM CDT >> TRACY ALVAREZ 02/13/2004 8:17 am Valeri Keenan presents for pre-op. Initial BP 92/78 Pulse 56 Ht 5' 4 (1.63m) Wt 177 lbs (80.3kg) completed using BP cuff size: regular. Tracy Alvaerz SMA documented in this encounter Plan of Treatment Not on filedocumented as of this encounter Procedures Procedure Name Priority Date/Time Associated Diagnosis Comme nts ZZC ELECTROCARDIOGRAM, COMP Routine 02/13/2004 Preop Exam Ot her Specified W/READ documented in this encounter Results ELECTROCARDIOGRAM, COMP W/READ (02/13/2004) Narrative This result has an attachment that is no t available. Vanessa Mills MD EKG TECHNICAL documented in this encounter Visit Diagnoses Diagnosis Other specified pre-operative examinatio n - Primary documented in this encounter Care Teams Taxonomy Teacher Relationship Specialty Start Date End Date Angeles Olsen MD PCP - General 02/26/02 08/28/10 documented as of this encounter
--- OUTSIDE RECORDS SUMMARY | 2022-04-16 19:43 | XMS_ITS | Encounter Summary ---
:1955 Author Organization [facility] Address [address] [place] [address]. 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 Details Date Type Department Care Team Description 09/04/2004 Orders Only [facility] Eag an Vanessa Mills DIAGNOSIS NOT YET [address] [facility] Maria Antonia Mendez MD DEFINED (Primary Dx) [place]IO Marquez [phone] [place] [address] A [phone] [place] [address] Social History Tobacco Use Types Packs/Day Years Used Date Never Smoker Alcohol Use Standard Drinks/Week Comments Yes 0 (1 standard drink = 0.6 oz pure alcoho l) 1 glass of wine per week Sex Assigned at Date Recorded 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 Vanessa Mills MD REFERRAL documented in this encounter Visit Diagnoses Diagnosis DIAGNOSIS NOT YET DEFINED - Primary documented in this encounter Care Teams Brush Clearer Surveying Relationship Specialty Start Date End Date Angeles Olsen MD PCP - General 02/26/02 08/28/10 documented as of this encounter
--- OUTSIDE RECORDS SUMMARY | 2022-04-16 19:43 | XMS_ITS | Encounter Summary ---
:1955 Author Organization [facility] Address [address] [place] [address]. [place] [address] Care Team Providers Name Role Phone Angeles Olsen MD Primary Care Provider [phone] Reason for Referral - Closed Specialty Diagnoses / Procedures Referred By Contact Refer red To Contact Diagnoses Routine general medical examination at a health care facility Vanessa Mills MD [address] [facility] [place], [place] [address] Referral ID Status Reason Start Date Expiration Date Visits Requ ested Visits Authorized [id number] Closed 09/25/2004 08/17/2011 1 1 PITTER Reason for Visit Reason Comments Physical Encounter Details Date Type Department Care Team Description 09/25/2004 Office Visit [facility] Vanessa Mills ROUTINE MEDICAL EXAM (Primar y Dx); [address] 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 Initial BP 108/68 Pulse 50 Resp 16 Ht 5' 4.5 (1.64m) Wt 170 lbs (77.1kg) LMP Hysterectomy. BP completed using cuff size: regular. HEALTH CARE MAINTENANCE: LMP: Hysterectomy and HRT - Stopped 05/2003-Pt was on HRT for 9 months. Pap: 03/18/03-Will see OB physician 10/15. TECHNICAL SERVICES MANAGER: None Mammogram: 11/17/0364-[id number] by OB physician Colon Ca Screen: Never DEXA scan: 10/16/02 Tetanus: 08/30/03 Pneumovax: NA SAFETY: ======= Do you feel safe in your relationship(s)? YES Do you have a gun in your home? Yes Do you wear your seatbelt regularly? YES Do you use sunscreen? YES Fasting? Yes Concerns: 1) Pt is traveling to [place] in October-needs RX for malaria. Quita Keenan is here for a general check up. She is fasting. Other concerns today: 1) Traveling to [facility] 11/01. Thinks she got her first 2 Hep B vaccines at her place of employment. Reports she does not need yellow fever vaccine. 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 Neg hx of +PPD. Does not know her hep A status. 2) Sees dianetic counselor for her annual pap and mammogram, breast exams. Review of patient's past medical history indicates: HEADACHE TM JOINT DISORDER, UNSPEC OSTEOARTHROS NOS-OTHER SITE PREMENSTRUAL TENSION FEMALE STRESS INCONTINENCE HABITS: Tob: none ETOH: 1/week Calcium: 0-1/day + 1 supplement daily Caffeine: 4/day Exercise: occasional, treadmill, walking [employer] HISTORY: LMP: TAHBSO, was on HRT x 9 mos, then D/C Hx abnormal pap? none STD hx? none Vasomotor sx: mild hot flashes G 3 P 2 A 1 Self Breast exam: occasional PMH, PSH, FH, medications, allergies and immunizations are updated this visit. ROS CONSTITUTIONAL:NEGATIVE for fever, chills, Has concerted weight loss over past year, on diet plan INTEGUMENTARY/SKIN: NEGATIVE for worrisome rashes, moles or lesions EYES: Needs new eye prescription, seeing ophtho today ENT/MOUTH: NEGATIVE for ear, mouth and throat problems RESP:NEGATIVE for significant cough or SOB BREAST: NEGATIVE for masses, tenderness or discharge CV: NEGATIVE for chest pain, palpitations, ALLAN, orthopnea, PND or peripheral edema GI: NEGATIVE for nausea, abdominal pain, heartburn, or change in bowel habits. No rectal bleeding :NEGATIVE for frequency, dysuria, or hematuria MUSCULOSKELETAL:Hx of OA, hands, multiple joints. NO active significant arthralgias or myalgia. On Celebrex NEURO: NEGATIVE for weakness, dizziness or paresthesias ENDOCRINE: NEGATIVE for polyuria/dipsia, temperature intolerance, skin/hair changes HEME/ALLERGY/IMMUNE: NEGATIVE for bleeding problems PSYCHIATRIC: NEGATIVE for changes in mood or affect EXAM LMP Hysterectomy BP 108/68 Pulse 50 Resp 16 Ht 5' 4.5 (1.64m) Wt 170 lbs (77.1kg) LMP Hysterectomy BMI = 28.73 GENERAL APPEARANCE: Alert, pleasant, NAD EYES: PERRL, EOMI, conjunctiva clear HENT: TM normal bilaterally. Nose and mouth without lesions NECK: no adenopathy, thyroid normal to palpation RESP: lungs clear to auscultation bilaterally BREAST: deferred CV: regular rate and rhythm, normal S1 S2, no murmur, no carotid bruits ABDOMEN: soft, nontender, without HSM or masses. Bowel sounds normal : deferred, tahbso RECTAL EXAM: deferred MS: extremities normal- no gross deformities noted, no tender, hot or swollen joints. SKIN: no suspicious lesions or rashes NEURO: Normal strength and tone, sensory exam grossly normal, DTR normoreflexive in upper and lowerextremities PSYCH: mentation appears normal. and affect normal/bright. EXT: no peripheral edema, pedal pulses palpable Assessment: V70.0 ROUTINE MEDICAL EXAM (primary encounter diagnosis) Note: Anticipatory guidance given today regarding diet, exercise and calcium intake, safety. SBE taught. Plan: A.M.A. LIPID PANEL, GLUCOSE, CBC WITH PLATELETS, AST, CREATININE, CONSULT [facility] Gave calcium guideline, recommended weight loss to at least 150 pounds to achieve BMI < 26, currently at 28. Discussed Father's hx of MD age 53, at 57. Recommend weight loss and exercise. Referral given for screening colonoscopy. V65.49 COUNSELING OTHER SPECIFIED Note: Travel to [facility] in October Plan: HEP B SURFACE ANTIBODY, HEP A AB, TOTAL SERUM, TB INTRADERMAL TEST Check Hepatitis viral titers today. Mantoux as baseline, if neg, repeat in 1 yr. Nurse only appt tocheck PPD in 2 days. Pt will return for full travel evaluation, malaria prophylaxis, and to update vaccines if needed. documented in this encounter Plan of Treatment Not on filedocumented as of this encounter Procedures Procedure Name Priority Date/Time Associated Comments Diagnosis ZZ CONSULT Routine 05/20/2005 Routine Medical [facility] Exam HC TB INTRADERMAL Routine 09/27/2004 11:36 Counseling Other TEST AM DATE PITTER Specified HCL HEP A AB TOTAL Routine 09/25/2004 9:34 AM Counseling Other Results for this DATE PITTER Specified procedure are i n the results section. CL AFF HEP B SURFACE Routine 09/25/2004 9:34 AM Counseling Oth er Results for this ANTIBODY DATE PITTER Specified procedure are i n the results section. CL AFF CBC WITH Routine 09/25/2004 8:42 AM Routine Medical Res ults for this PLATELETS, DIFF DATE PITTER Exam procedure ar e in the results section. HCL GLUCOSE Routine 09/25/2004 8:42 AM Routine Medical Result s for this DATE PITTER Exam procedure are i n the results section. HCL AST Routine 09/25/2004 8:42 AM Routine Medical Result s for this DATE PITTER Exam procedure are i n the results section. HCL CREATININE Routine 09/25/2004 8:42 AM Routine Medical Resu lts for this DATE PITTER Exam procedure are i n the results section. CL AFF A.M.A. LIPID Routine 09/25/2004 8:42 AM Routine Medical Results for this PANEL DATE PITTER Exam procedure are i n the results section. documented in this encounter Results CONSULT [facility] (05/20/2005) Narrative This result has an attachment that is no t available. Vanessa Mills MD REFERRAL TB INTRADERMAL TEST (09/27/2004 11:36 AM DATE PITTER) Vanessa Mills MD IMMUNIZATION/INJECTION HEP A AB, TOTAL SERUM (09/25/2004 9:34 AM DATE PITTER) Analysis Performed At Patho logist Time Signature Hepatitis A Negative NEG [facility] Antibody [facility] Specimen Anatomical Collection Method Collection Time Receive d Time (Source) Location / / Volume Laterality 09/25/2004 9:34 AM 5 9:37 DATE PITTER AM DATE PITTER Vanessa Mills MD LABORATORY Performing Organization Address City/State/ZIP Code Phon e Number [address] LABS (ABNORMAL) HEP B SURFACE ANTIBODY (09/25/2004 9:34 AM DATE PITTER) Patholo gist Method Time Signature Hep B Surface Positive, NEG [facility] Mary Kate Patient is [facility]IVERS[facility] considered to [facility] be immune to infection with hepatitis B. (A) Specimen Anatomical Collection Method Collection Time Receive d Time (Source) Location / / Volume Laterality 09/25/2004 9:34 AM 5 9:37 DATE PITTER AM DATE PITTER Vanessa Mills MD LABORATORY Performing Organization Address City/State/ZIP Code Phon e Number [facility] [address] [place], [place] [id number] [place] [address] LABS CREATININE (09/25/2004 8:42 AM DATE PITTER) P athologist Signature Creatinine 0.80 0.60 - [facility] 1.30 mg/dL [facility] GFR Estimate >80 >60 [facility] [place] mL/min/1.7 [facility] m2 LAB GFR Estimate If >80 >60 [facility] [place] mL/min/1.7 [facility] m2 LAB Specimen Anatomical Collection Method Collection Time Receive d Time (Source) Location / / Volume Laterality 09/25/2004 8:42 AM 5 8:45 DATE PITTER AM DATE PITTER Vanessa Mills MD LABORATORY Performing Organization Address City/State/ZIP Code Phon e Number [facility] [place] [address] [facility] LAB AST (09/25/2004 8:42 AM DATE PITTER) P athologist Signature AST 31 0 - 45 U/L [facility] LAB Specimen Anatomical Collection Method Collection Time Receive d Time (Source) Location / / Volume Laterality 09/25/2004 8:42 AM 5 8:45 DATE PITTER AM DATE PITTER Vanessa Mills MD LABORATORY Performing Organization Address City/State/ZIP Code Phon e Number [address] [address] [facility] LAB (ABNORMAL) CBC WITH PLATELETS, DIFF (09/25/2004 8:42 AM DATE PITTER) Patholo gist Method Time Signature WBC 3.9 (L) 4.0 - [facility] 11.0 [facility] 10e9/L LAB RBC Count 4.12 3.8 - 5.2 [facility] 10e12/L [facility] Hemoglobin 12.3 11.7 - [facility] 15.7 g/dL [facility] Hematocrit 35.7 35.0 - [facility] 47.0 % [facility] MCV 87 78 - 100 [place] fl [facility] MCH 29.9 26.5 - [facility] 33.0 pg [facility] MCHC 34.5 32.0 - [facility] 36.0 g/dL [facility] RDW 14.1 10.0 - [facility] 15.0 % [facility] Platelet Count 293 150 - 450 [facility] 10e9/L [facility] Diff Method Automated [facility] Method [facility] % Lymphocytes 34 20 - 48 % [facility] % Monocytes 6 0 - 12 % [facility] LAB % Granulocytes 60 40 - 75 % [facility] Absolute 1.3 0.8 - 5.3 [facility] Lymphocytes 10e9/L [facility] Absolute 0.2 0.0 - 1.3 [place] Monocytes 10e9/L [facility] Absolute 2.4 1.6 - 8.3 [place] Granulocytes 10e9/L [facility] Specimen Anatomical Collection Method Collection Time Receive d Time (Source) Location / / Volume Laterality 09/25/2004 8:42 AM 5 8:45 DATE PITTER AM DATE PITTER Vanessa Mills MD LABORATORY Performing Organization Address City/[facility]/ZIP Code Phon e Number [facility] [place] [address] [place] [address] [facility] LAB GLUCOSE (09/25/2004 8:42 AM DATE PITTER) athologist Signature Glucose 88 60 - 110 [facility] mg/dL [facility] LAB Specimen Anatomical Collection Method Collection Time Receive d Time (Source) Location / / Volume Laterality 09/25/2004 8:42 AM 5 8:45 DATE PITTER AM DATE PITTER Vanessa Mills MD LABORATORY Performing Organization Address [facility] Code Phon e Number [facility] [address] [place] [address] [facility] LAB A.M.A. LIPID PANEL (09/25/2004 8:42 AM DATE PITTER) athologist Signature Cholesterol 179 0 - 200 [facility] mg/dL [facility] Comment: Cholesterol Reference Range: <200 ??The NCEP recommends further ? evaluation of: ? 1. ??Patients with cholesterol ? greater than 200 mg/dL ? if additional risk facto rs ? are present. ? 2. ??All patients with a ? cholesterol greater than ? 240 mg/dL. Triglycerides 52 0 - 150 mg/dL [facility] HDL Cholesterol 67 >40 mg/dL [facility] LAB LDL Cholesterol Calculated 101 0 - 129 mg/dL [facility] LAB VLDL-Cholesterol 10 0 - 30 mg/dL [facility] LAB Cholesterol/HDL Ratio 2.7 0.0 - 5.0 [facility] LAB Specimen Anatomical Collection Method Collection Time Receive d Time (Source) Location / / Volume Laterality 09/25/2004 8:42 AM 8:45 DATE PITTER AM DATE PITTER Vanessa Mills MD LABORATORY Performing Organization Address City/State/ZIP Code Phon e Number [address] [address] [facility] LAB documented in this encounter Visit Diagnoses Diagnosis Routine general medical examination at a [facility] care facility - Primary Other specified counseling documented in this encounter Care Teams Account Review Specialist Relationship Specialty Start Date End Date nAgeles Olsen MD PCP - General 02/26/02 08/28/10 documented as of this encounter
--- OUTSIDE RECORDS SUMMARY | 2022-04-16 19:43 | XMS_ITS | Encounter Summary ---
:1955 Author Organization [facility] Address [address] [place] [address]. [place] [address] Care Team Providers Name Role Phone Angeles Olsen MD Primary Care Provider [phone] Reason for Referral - Closed Specialty Diagnoses / Procedures Referred By Contact Refer red To Contact Diagnoses Hirogo Vanessa Mills MD [address] [place], [place] [address] Referral ID Status Reason Start Date Expiration Date Visits Requ ested Visits Authorized [id number] Closed 08/30/2003 08/17/2011 1 1 IFIED CORPORATE TRAVEL EXECUTIVE Reason for Visit Reason Comments Physical 48 year old female physical without PAP. Pt is fasting. Encounter Details Date Type Department Care Team Description 08/30/2003 Office Visit [facility] Vanessa Mills ROUTINE M EDICAL EXAM (Primary Dx); Alma Mendez MD [place]; [address] [employer] [address] UNSPEC CONSTIPATION; FABIO Marquez [id number] A ABNORMAL WEIGHT GAIN; [phone] [place], [place] ASYMPTOMATIC POSTMENOPAUSAL STATUS [address] Social History Tobacco Use Types Packs/Day Years Used Date Never Smoker Alcohol Use Standard Drinks/Week Comments Yes 0 (1 standard drink = 0.6 oz pure alcoho l) 1 glass of wine per week Sex Assigned at Date Recorded Female 06/29/2019 1:44 PM CERTIFIED CORPORATE TRAVEL EXECUTIVE documented as of this encounter Last Filed Vital Signs Vital Sign Reading Time Taken Comments Blood Pressure 122/72 08/30/2003 9:30 AM CERTIFIED CORPORATE TRAVEL EXECUTIVE Pulse 54 08/30/2003 9:30 AM CERTIFIED CORPORATE TRAVEL EXECUTIVE Temperature - - Respiratory Rate 14 08/30/2003 9:30 AM CERTIFIED CORPORATE TRAVEL EXECUTIVE Oxygen Saturation - - Inhaled Oxygen Concentration - - Weight 84.6 kg (186 lb 8 oz) 08/30/2003 9:30 AM CERTIFIED CORPORATE TRAVEL EXECUTIVE Height 163.8 cm (5' 4.5) 08/30/2003 9:30 AM CERTIFIED CORPORATE TRAVEL EXECUTIVE Body Mass Index 31.52 08/30/2003 9:30 AM CERTIFIED CORPORATE TRAVEL EXECUTIVE documented in this encounter Progress Notes 08/30/2003 9:30 AM CERTIFIED CORPORATE TRAVEL EXECUTIVE Last Td: unsure Does Self Breast exams? Q 2 months Last Dental Visit: 02/2003 Last Eye exam: 3 How many servings of dairy products per day? 3-4 Do you feel safe in your relationships? yes For ov er 50: Last Colon cancer check: Never Type: NONE For over 65: Pneumovax: VIJAYA shelton is here for a general check up. She sees an Bone Worker for mammograms, DEXA scans andpap smears. She is fasting. Other concerns today: 1)low back pain radiating to right thigh, anterior portion sin ce July 2003. Ibuprofen 1600mg q 4 hrs x one week. Pain is dull and achy, sharp quality to pain a t right groin. No injury. Pain beganafter TAHBSO in Aug 2002. 2) 20 pound weight gain over two year s. Pt wonders if it is from Prozac. Prozac was prescribed for PMS symptoms but since her hysterectomy , she feels it helps her overall mood. Is going to start a diet and exercise program. Considering Atk ins diet. 3)Hysterectomy for fibroids, was on Estrogen x 8 months, then stopped. Some vaginal drynes s reported, no vasomotor symptoms. Had DEXA scan which was normal. Pt inquiring about benefits, risks of HRT. 4)Requesting HIV test and Hep C test. Had saliva exposure to a family member who has HIV, and she had a cold sore at that time. 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 She did not come back for a hepatitis b booster luiz t, but would like to do that today. 5)Has had fairly significant constipation since her hysterectom y. She has always been regular and modified her diet when needed. This is less effective now. Has h ad a hemorrhoid with bright red bloodon the toilet paper but this is improving. No family hx of colo n cancer. No constitutional symptoms. 6)Wants me to check her lymph nodes, thinks that the inguinal nodes may be enlarged. No vaginal discharge, no pelvic pain. HABITS: Tob: none ETOH: 1/week Calciu m: 3-4/day Caffeine: 2/day Exercise: occasional, treadmill DIRECTOR REVENUE HISTORY: LMP: TAHBSO Vasomotor sx: none G 3 P 2 A 1 Self Breast exam: yes Had DEXA scan 10/2002 normal PMH, PSH, FH, medications , allergies and immunizations are updated this visit. ROS CONSTITUTIONAL:NEGATIVE for fever, chills , weight gain as above INTEGUMENTARY/SKIN: NEGATIVE for worrisome rashes, moles or lesions EYES: NEGA TIVE for vision changes or irritation ENT/MOUTH: NEGATIVE for ear, mouth and throat problems RESP:NEG ATIVE for significant cough or SOB BREAST: NEGATIVE for masses, tenderness or discharge CV: NEGATIVE for chest pain, palpitations or peripheral edema GI: NEGATIVE for nausea, abdominal pain, heartburn, constipation as above. :NEGATIVE for frequency, dysuria, or hematuria MUSCULOSKELETAL: hip/groin pa in as above, no small joint pain or knee pain. NEURO: NEGATIVE for weakness, dizziness or paresthesia s ENDOCRINE: NEGATIVE for polyuria/dipsia, temperature intolerance, skin/hair changes HEME/ALLERGY/I MMUNE: NEGATIVE for bleeding problems PSYCHIATRIC: NEGATIVE for changes in mood or affect. EXAM B/P: 122/72, T: Data Unavailable, P: 54, R: 14 GENERAL APPEARANCE: alert, no distress EYES: PERRL, EOMI , sclera clear bilaterally HENT: TM normal bilaterally, nares clear bilaterally, OP clear, no lesions NECK: No adenopathy or thyromegaly. No masses, no bruits. RESP: CTA bilaterally, no rhonchi, rales or wheezes BREAST: Not done CV: Reg rate and rhythm, normal S1, S2. No murmers, gallops or ectopy. AB DOMEN: soft, nontender, slightly distended, no HSM or masses. BS normal EXTREMITIES: No edema. No d eformities. Pulses strong and equal in upper and lower extremities RECTAL: Not done STORES CLERK: Not done MS : No red, hot or swollen joints. Point tenderness over LS bony spine and the paralumbar muscle group s on the right. Internal and external rotation of the hips is good bilaterally. No point tenderness over the greater trochanters. Pain along right groin but no evidence for trauma, no adenopathy. SKIN : no suspicious lesions or rashes NEURO:DTR +2/4 in all extremities. CN 2-12 grossly intact. Normal mentation PSYCH: Affect normal. Speech content normal. Good eye contact. LYMPHATICS: No axillary or inguinal adenopathy or masses. ASSESSMENT: V70.0 ROUTINE MEDICAL EXAM (primary encounter diagnosis ) Note: Anticipatory guidance given today regarding diet, exercise and calcium intake, safety. SBE ta ught. Plan: HEPATITIS C AB, HIV-1/HIV-2, SCREEN, A.M.A. LIPID PANEL, CBC WITH PLATELETS, TD IMMUNIZATION,IM/JET, HEPATITIS B VACCINE,ADULT,IM, OCCULT BLOOD, STOOL (1-3 SPEC) Pt informed she would need to return to discuss HIV results No suspicious adenopathy on exam. Recheck Hepatitis B titer in 3-6 months to see is she develops immunity after the booster. 724.2 LUMBAGO Note: low back pain, suspect musculoskeletal Plan: CONSULT I.A.M.(PT & CHIRO ) Pt advised to use Celebrex with additional Tylenol if needed. She had been also using Advil. Discussed need to watch for stomach upset, take meds with food. May use Celebrex 200mg bid if necessa ry. 564.00 UNSPEC CONSTIPATION Note: One year hx. Plan: Hemoccult screening cards, discussed colonos copy referral 783.1 ABNORMAL WEIGHT GAIN Note: unclear if this is due entirely to Prozac, though it may be playing a role. Plan: TSH W/FREE T4 REFLEX Discussed safe strategies for weight loss inc luding cutting back on portion sizes, integrating more fruits and vegetables into the diet. Decrease low fiber carbohydrates such as rice, pasta, potatoesand breads. Initiate a regular exercise progra m. Discouraged Atkins diet, [place] diet is OK orweight watchers. V49.81 ASYMPTOMATIC POSTMENOP AUSAL STATUS Note: stopped HRT after 8 months use, no vasomotor symptoms Plan: Discussed WHI trial. W ith no vasomotor symptoms and normal bone density test, no real indication to start estrogen. Gave c alcium guideline to patient an recommended weight bearing exercise to prevent bone loss. Discussed us e of Premarin vaginal cream, if needed for dryness. Pt declines rx forthis today. Visit time today is 60 minutes, counseled on HRT, HIV, Screening tests such as DEXA and colonoscopy and sensible appr oach to weight loss. documented in this encounter Plan of Treatment Not on filedocumented as of this encounter Procedures Procedure Name Priority Date/Time Associated Diagnosis Comme nts CL AFF CBC WITH Routine 08/30/2003 11:10 AM Routine Medical Ex am Results for this PLATELETS CERTIFIED CORPORATE TRAVEL EXECUTIVE procedure are i n the results section. HCL HEPATITIS C Routine 08/30/2003 11:10 AM Routine Medical Ex am Results for this VIRUS ANTIBODY CERTIFIED CORPORATE TRAVEL EXECUTIVE procedure are in the results section. HCL TSH W/FREE T4 Routine 08/30/2003 11:10 AM Abnormal Weight Gain Results for this REFLEX CERTIFIED CORPORATE TRAVEL EXECUTIVE procedure are i n the results section. HCL HIV 1 & 2 Routine 08/30/2003 11:10 AM Routine Medical Exam Results for this ANTIBODY CERTIFIED CORPORATE TRAVEL EXECUTIVE procedure are i n the results section. CL AFF A.M.A. LIPID Routine 08/30/2003 11:10 AM Routine Medica l Exam Results for this PANEL CERTIFIED CORPORATE TRAVEL EXECUTIVE procedure are i n the results section. documented in this encounter Results TSH W/FREE T4 REFLEX (08/30/2003 11:10 AM CERTIFIED CORPORATE TRAVEL EXECUTIVE) athologist Signature TSH 2.83 0.4 - 5.0 [facility] mU/L [place] Specimen Anatomical Collection Method Collection Time Receive d Time (Source) Location / / Volume Laterality 08/30/2003 11:10 08/30/2003 AM CERTIFIED CORPORATE TRAVEL EXECUTIVE 11:19 AM CERTIFIED CORPORATE TRAVEL EXECUTIVE Vanessa Mills MD LABORATORY Performing Organization Address City/State/ZIP Code Phon e Number [facility] [address] [place] [address] [place] [address] [facility] CBC WITH PLATELETS (08/30/2003 11:10 AM CERTIFIED CORPORATE TRAVEL EXECUTIVE) athologist Signature WBC 4.6 4.0 - 11.0 [facility] [place] 10e9/L [facility] RBC Count 4.85 3.8 - 5.2 [facility] 10e12/L [facility] Hemoglobin 14.0 11.7 - [facility] 15.7 g/dL CLINIC LAB Hematocrit 41.9 35.0 - [facility] [place] 47.0 % CLINIC LAB MCV 86 78 - 100 [facility] fl CLINIC LAB MCH 28.9 26.5 - [facility] pg [facility] LAB MCHC 33.4 32.0 - [facility] 36.0 g/dL CLINIC LAB RDW 13.7 10.0 - [facility] 15.0 % CLINIC LAB Platelet Count 329 150 - 450 [facility] 10e9/L [facility] Specimen Anatomical Collection Method Collection Time Receive d Time (Source) Location / / Volume Laterality 08/30/2003 11:10 08/30/2003 AM CERTIFIED CORPORATE TRAVEL EXECUTIVE 11:19 AM CERTIFIED CORPORATE TRAVEL EXECUTIVE Vanessa Mills MD LABORATORY Performing Organization Address City/State/ZIP Code Phon e Number [facility] [address] [place] [address] [facility] (ABNORMAL) A.M.A. LIPID PANEL (08/30/2003 11:10 AM CERTIFIED CORPORATE TRAVEL EXECUTIVE) athologist Signature Cholesterol 236 (H) <200 mg/dL [facility] Comment: Cholesterol Reference Range: <200 ??The NCEP recommends further ? evaluation of: ? 1. ??Patients with cholesterol ? greater than 200 mg/dL ? if additional risk facto rs ? are present. ? 2. ??All patients with a ? cholesterol greater than ? 240 mg/dL. Triglycerides 107 <150 mg/dL [facility] HDL Cholesterol 63 >40 mg/dL [facility] LDL Cholesterol Calculated 151 (H) <130 mg/dL [facility] VLDL-Cholesterol 21 0 - 30 mg/dL [facility] Cholesterol/HDL Ratio 4 0 - 5 [facility] Specimen Anatomical Collection Method Collection Time Receive d Time (Source) Location / / Volume Laterality 08/30/2003 11:10 08/30/2003 AM CERTIFIED CORPORATE TRAVEL EXECUTIVE 11:19 AM CERTIFIED CORPORATE TRAVEL EXECUTIVE Vanessa Mills MD LABORATORY Performing Organization Address City/State/ZIP Code Phon e Number [facility] [address] [place] [id number] [facility] HIV-1/HIV-2, SCREEN (08/30/2003 11:10 AM CERTIFIED CORPORATE TRAVEL EXECUTIVE) Analysis Performed At Patho logist Time Signature HIV 1&2 Negative NEG [facility] Antibody [facility] Specimen Anatomical Collection Method Collection Time Receive d Time (Source) Location / / Volume Laterality 08/30/2003 11:10 08/30/2003 AM CERTIFIED CORPORATE TRAVEL EXECUTIVE 11:19 AM CERTIFIED CORPORATE TRAVEL EXECUTIVE Vanessa Mills MD LABORATORY Performing Organization Address City/State/ZIP Code Phon e Number [facility] [address] [place] [address] [facility] HEPATITIS C AB (08/30/2003 11:10 AM CERTIFIED CORPORATE TRAVEL EXECUTIVE) Analysis Performed At Patho logist Time Signature Hepatitis C Negative NEG [facility] Antibody [facility] Specimen Anatomical Collection Method Collection Time Receive d Time (Source) Location / / Volume Laterality 08/30/2003 11:10 08/30/2003 AM CERTIFIED CORPORATE TRAVEL EXECUTIVE 11:19 AM CERTIFIED CORPORATE TRAVEL EXECUTIVE Vanessa Mills MD LABORATORY Performing Organization Address City/State/ZIP Code Phon e Number [facility] [address] [place] [address] [facility] documented in this encounter Visit Diagnoses Diagnosis Routine general medical examination at a health care facility - Primary Lumbago Unspecified constipation Abnormal weight gain Asymptomatic postmenopausal status (age- related) (natural) documented in this encounter Care Teams Dining Room Helper Relationship Specialty Start Date End Date Angeles Olsen MD PCP - General 02/26/02 08/28/10 documented as of this encounter
--- OUTSIDE RECORDS SUMMARY | 2022-04-16 19:43 | XMS_ITS | Encounter Summary ---
:1955 Author Organization [facility] Address [address] [place] [address]. [place] [address] Care Team Providers Name Role Phone Angeles Olsen MD Primary Care Provider [phone] Reason for Visit Reason Comments RECHECK Encounter Details Date Type Department Care Team Description 09/13/[address] [facility] Vanessa Byrne LABORATORY EXAMINATION; [address] [facility] MD Vanessa OBESITY NOS; [place] [address] BL PRES W/O HYPERTN [phone] [place] [address] Social History Tobacco Use Types Packs/Day Years Used Date Never Smoker Alcohol Use Standard Drinks/Week Comments Yes 0 (1 standard drink = 0.6 oz pure alcoho l) 1 glass of wine per week Sex Assigned at Date Recorded Female 06/29/2019 1:44 PM TRAVELER CHANGER documented as of this encounter Last Filed Vital Signs Vital Sign Reading Time Taken Comments Blood Pressure 124/78 09/13/2003 3:51 PM (from Extend ed TRAVELER CHANGER Vitals) Pulse 64 09/13/2003 2:45 PM TRAVELER CHANGER Temperature - - Respiratory Rate 14 09/13/2003 2:45 PM TRAVELER CHANGER Oxygen Saturation - - Inhaled Oxygen - - Concentration Weight 84.4 kg (186 lb) 09/13/2003 2:45 PM TRAVELER CHANGER Height 163.8 cm (5' 4.5) 09/13/2003 2:45 PM TRAVELER CHANGER Body Mass Index 31.43 09/13/2003 2:45 PM TRAVELER CHANGER documented in this encounter Progress Notes 09/13/2003 2:45 PM TRAVELER CHANGER Valeri Keenan is here to follow to discuss lab results drawn at the last clinic visit. She had a saliva exposure to a family member with HIV, no other risk factors. We had discussed that saliva isnot a common vector of HIV but the test was done because the patient was concerned. Lipid profile, CBC and thyroid tests were also drawn. The patient is overweight and is asking about the [facility] program. She has had success with weight loss using weight watchers in the past, but was interest ed in the [place] Diet. She could not giveme any details regarding approach or exercise plan. EXAM DE FERRE ASSESSMENT: V72.6 LABORATORY EXAMINATION Note: discussed labs, neg HIV, neg Hep C and normal chemistries. Has mildly elevated fasting lipid profile which does not require medication at this time . Plan: Recheck lipids in one year. If total chol > 240 or LDL > 160, will need medication. 278.00 OBESITY NOS Note: BMI = 31.43 Plan: Discussed risk of developing diabetes and heart disease with BMI greater than 30. Approach to sensible weight loss is discussed and pt was encouraged to start an exe rcise program. 796.2 ELEV BL PRES W/O HYPERTN Note: Repeat blood pressure in normal range Plan: Pt given BP card and is encouraged to get BP checked outside of clinic. RTC in 2 months for weight jose ck and for BP check. Visit time today 15 minutes. documented in this encounter Nursing Notes 09/13/2003 2:45 PM CST >> GARDENIA COOPER 09/13/2003 3:03 pm Lab results. Quita Cooper RN documented in this encounter Plan of Treatment Not on filedocumented as of this encounter Visit Diagnoses Diagnosis Laboratory examination Obesity, unspecified Elevated blood pressure reading without diagnosis of hypertension documented in this encounter Care Teams Electron Gun Inspector Relationship Specialty Start Date End Date Angeles Olsen MD PCP - General 02/26/02 08/28/10 documented as of this encounter
--- OUTSIDE RECORDS SUMMARY | 2022-04-16 19:44 | XMS_ITS | Encounter Summary ---
:1955 Author Organization [facility] Address [address], [place] [address] Care Team Providers Name Role Phone Vanessa Mills MD Primary Care Provider Reason for Visit Reason Comments Post-Op Check Encounter Details Date Type Department Care Team Description 09/22/2018 [facility] Maryellen Hutchinson MD SBO (small bowel General Surgery [address] [place] [address]) ([facility]) [address] [place] [address] ( Primary Dx) [address] [address] [place] [address] [phone] Social History Tobacco Use Types Packs/Day Years Used Date Smoking Tobacco: Never Alcohol Use Standard Drinks/Week Comments Yes 1 (1 standard drink = 0.6 oz pure Alcoho lic Drinks/day: alcohol) Freq:2-4/Month ; Alcohol Habits Answer Date Recorded How often do you have a drink Not asked containing alcohol? How many drinks containing alcohol Not asked do you have on a typical day when you are drinking? How often do you have six or more Not asked drinks on one occasion? Comment: Alcoholic Drinks/day: 04/06/2016 Freq:2-4/Month ; Sex Assigned at Date Recorded Not on file documented as of this encounter Progress Notes hSazia Hutchinson MD - 09/22/2018 10:40 AM CST General Surgery Clinic Visit The patient returns for routine post-op check following an exploratory laparotomy and ileocolic resection for closed loop bowel obstruction with ischemic bowel 08/20/2018. A couple weeks ago was seen in clinic for serous drainage from wound, that has now stopped completely and wound healing appropriately without signs of infection. Initially had issues with diarrhea ~ 6x/day, now decreased to 2-3 soft BMs/day. Tolerating a regular diet. Mild pain, improving. Denies fevers. On exam Well appearing Benign abdomen Incision healed without signs of infection Assessment/Plan: Doing well Prescribed fiber to help regulate the stool - fibercon 1 pill BID. Can increase up to 2 pills QID asneeded. Discussed no lifting > 15 lbs for another 2 weeks and then increase slowly as tolerated. Return to clinic prn Shazia Hutchinson MD AIN CLEANER documented in this encounter Plan of Treatment Not on filedocumented as of this encounter Visit Diagnoses Diagnosis SBO (small bowel obstruction) ([facility]) - Pr imary Unspecified intestinal obstruction documented in this encounter Care Teams Building Performance Specialist Relationship Specialty Start Date End Date Vanessa Mills MD PCP - General 04/03/[address] [place] [address] [place] [address] documented as of this encounter
--- OUTSIDE RECORDS SUMMARY | 2022-04-16 19:44 | XMS_ITS | Clinical Summary ---
:1955 Author Organization [employer] [facility] Address [place] [address] Care Team Providers Name Role Phone Listed, Not Primary Care Provider Unavailable Allergies Active Allergy Reactions Severity Noted Date Comments Cefazolin Rash 07/16/2019 Hydrocodone-Acetaminophen Other - Describe In Comment 03/07/2022 Field Meperidine Nausea Only 07/16/2019 Morphine Nausea Only, Dizziness 07/16/2019 Medications Medication Sig Dispensed Refills Start Date End Date Status amLODIPine (NORVASC) Take 10 mg by mouth 0 Active 10 mg tablet once daily. diphenhydrAMINE-acet Take 2 tablets by 0 Active aminophen 25-500 mg mouth at bedtime. (ACETAMINOPHEN PM Max acetaminophen EXTRA STR) 25-500 mg dose: 4000mg in 24 tablet hrs. levothyroxine Take 175 mcg by 0 Active (SYNTHROID) 175 mcg mouth at bedtime. tablet celecoxib (CELEBREX) Take 200 mg by 0 Active 200 mg capsule mouth once daily with a meal. FLUoxetine (SARAFEM) Take 60 mg by mouth 0 Active 20 mg tablet every morning. aspirin enteric Take 1 tablet by 30 tablet 0 07/21/2019 Active coated (ECOTRIN) 325 mouth once daily mg with a meal. tabletIndications: Post-operative state sennosides-docusate, Take 1-3 tablets by 100 tablet 0 07/20/20 19 Active 8.6-50 mg, (SENOKOT mouth 2 times S) 8.6-50 mg daily. tabletIndications: Post-operative state acetaminophen Take 2 tablets by 100 tablet 0 07/21/2019 Active (TYLENOL EXTRA mouth every 6 STRGTH) 500 mg hours. Max tabletIndications: acetaminophen dose: Post-operative state 4000mg in 24 hrs. HYDROmorphone Take 1-2 tablets by 40 tablet 0 07/21/2019 Active (DILAUDID) 2 mg mouth every 4 hours tabletIndications: if needed for Pain Post-operative state Active Problems Problem Noted Date Hypertension 07/20/2019 Primary osteoarthritis of left shoulder 07/20/2019 Depression 07/20/2019 Hypothyroidism 07/20/2019 Encounters Date Type Specialty Care Team Description 03/07/2022 Office Visit Salvador Brown PA Cons ult (Lumbar pain ) 03/07/2022 Travel 02/12/2022 Orders Only Scanner <No scans attac hed> from Last 3 Months Family History Medical History Relation Name Comments Cancer Brother Hypertension Brother Osteoporosis Brother Parkinsonism Brother Cardiomyopathy Father Parkinsonism Father Hypertension Mother Osteoporosis Mother Relation Name Status Comments Brother Father Mother Social History Tobacco Use Types Packs/Day Years Used Date Never Smoker Smokeless Tobacco: Never Used Alcohol Use Standard Drinks/Week Comments Yes 0 (1 standard drink = 0.6 oz pure alcoho l) 1 glass wine/week Alcohol Habits Answer Date Recorded How often do you have a drink containing alcohol? Not asked How many drinks containing alcohol do you have on a Not aske d typical day when you are drinking? How often do you have six or more drinks on one Not asked occasion? Comment: 1 glass wine/week 07/16/2019 Sex Assigned at Date Recorded Not on file Obstetrics History Last Filed Vital Signs Vital Sign Reading Time Taken Comments Blood Pressure 125/55 07/21/2019 8:15 AM [employer] Pulse 57 07/21/2019 8:15 AM [employer] Temperature 37.2 ??C (98.9 ??F) 07/21/2019 8:15 AM [employer] Respiratory Rate 16 07/21/2019 8:15 AM [employer] Oxygen Saturation 96% 07/21/2019 8:15 AM [employer] Inhaled Oxygen Concentration - - Weight 81.6 kg (180 lb) 03/07/2022 2:20 PM CDT Height 162.6 cm (5' 4) 03/07/2022 2:20 PM CDT Body Mass Index 30.9 03/07/2022 2:20 PM CDT Plan of Treatment Upcoming Encounters Date Type Specialty Care Team Description 05/02/2022 Office Visit Salvador Brown PA [address] [place], [place] [address] (Wo rk) Health Maintenance Due Date Last Done Comments Tdap 1965 Depression screening for age 12+ 1966 Hepatitis C screening for age 18-79 1972 Tetanus booster 1974 Colonoscopy through age 75 1999 Lipids for age 45-75 1999 Mammogram for age 45-75 1999 Zoster (shingles) series for age 50+ (1 of 2004 2) DEXA/DXA scan for age 65+ 2019 Medicare Wellness for age 65+ 2019 Pneumococcal series for age 65+ (1 - PCV) 2019 COVID-19 vaccine series (3 - Booster for 04/04/2021 021, 10/04/2020 Moderna series) Influenza for age 65+ 04/18/2022 BMI (ht and wt on same day) for age 18+ 03/07/2023 03/07/20 22 Medical Devices Implanted Type Area [employer] Device Shelf Model / Identifier Expiration Serial / Date Lot Modular Humeral Head 18mm Left: 11/18 / Implanted: Qty: 1 on 07/19/2019 by Angelica Fisher MD at [facility] Shoulder / [id number] Description: MODULAR HUMERAL HEAD 18MM Procedures Procedure Name Priority Date/Time Associated Diagnosis Comme nts SCAN-RADIOLOGY 02/12/2022 12:00 AM Result s for this REPORT CDT procedure are i n the results section. from Last 3 Months Results SCAN-RADIOLOGY REPORT (02/12/2022 12:00 AM CDT) Narrative This result has an attachment that is no t available. Scanner OTHER from Last 3 Months Insurance Payer Benefit Plan / Subscriber ID Effective Dates Phone Addre ss Type Group MEDICARE - PB MEDICARE PB [id number] 2019-Presen ATTN : CLAIMS USE ONLY ONLY t [address] [place] [address] [employer] OF [id number] 2019-Presen [address] [place] [address] [facility] [id number] 2018-Presen [address] [place] [address] [phone] (Home) [place] [address] Advance Directives Latest Code Status on File Code Status Date Activated Date Inactivated Comments Full Code 07/19/2019 8:26 AM 07/21/2019 4:53 PM Care Teams Bread Packer Relationship Specialty Start Date End Date Listed, Not PCP - General 07/09/[address] [place] [address]
--- OUTSIDE RECORDS SUMMARY | 2022-04-16 19:44 | XMS_ITS | Encounter Summary ---
:1955 Author Organization [email or web address] Address [address] [address] Care Team Providers Name Role Phone Vanessa Mills MD Primary Care Provider Reason for Visit Reason Comments INFECTION, WOUND (POST-OPERATIVE) Encounter Details Date Type Department Care Team Description 09/04/2018 Telephone Special[facility] [address] I NFECTION, WOUND General Surgery RN (POST-OPERATIVE) [address] [facility] [address] [place], [place] [id number] Social History Tobacco Use Types Packs/Day Years [...] on file documented as of this encounter Nursing Notes Yuliana Radford RN - 09/04/2018 10:54 AM CST Patient calling. Since she was in clinic 2 days ago she states drainage has increased, become thicker (like pus) and is foul smelling. States she does not have a fever. In general, does not feel well. appt made for nurse visit for eval this afternoon @ 1pm. [employer] documented in this encounter Plan of Treatment Not on filedocumented as of this encounter Visit Diagnoses Not on filedocumented in this encounter Care Teams Global Risk Management Director Relationship Specialty Start Date End Date Vanessa Mills MD PCP - General 04/03/[address] [place] [id number] documented as of this encounter
--- OUTSIDE RECORDS SUMMARY | 2022-04-16 19:44 | XMS_ITS | Encounter Summary ---
:1955 Author Organization [employer] Address [address], [place] [address] Care Team Providers Name Role Phone Vanessa Mills MD Primary Care Provider Reason for Referral (Routine) - Incomplete Specialty Diagnoses / Procedures Referred By Contact Refer red To Contact Diagnoses SBO (small bowel obstruction) (HRC) Shazia Hutchinson MD Procedures Case Request OR - General/Vascular Surg: LAPAROSCOPIC EXPLORATION ABDOMEN, possible bowel resection [address] [place], [place] [address] Referral ID Status Reason Start Date Expiration Date Visits V isits Requested Authorized [id number] Incomplete 08/20/2018 11/19/2019 1 1 ARDER OPERATOR Procedure/Equipment (Routine) - Incomplete Specialty Diagnoses / Procedures Referred By Contact Refer red To Contact Procedures Abdoulaye Lehman MD CT Abd Pelvis WO IV Cont [address] [place], [place] [address] Referral ID Status Reason Start Date Expiration Date Visits V isits Requested Authorized [id number] Incomplete 08/20/2018 11/19/2019 1 1 ARDER OPERATOR Reason for Visit Reason Comments Abdominal Pain Auth/Cert Specialty Diagnoses / Procedures Referred By Contact Refer red To Contact Diagnoses Small bowel obstruction (HRC) SBO (small bowel obstruction) (HRC) SBO (small bowel obstruction) (HRC) Small bowel obstruction (HRC) SBO (small bowel obstruction) (HRC) Small bowel obstruction (HRC) Referral ID Status Reason Start Date Expiration Date Visits Requ ested Visits Authorized [id number] 1 1 Encounter Details Date Type Department Care Team Description 08/20/2018 - [facility] Abdoulaye Varela MD [address] [place] [id number] SBO (small bowel obstruction) (HRC) (Emily luu Dx); 08/27/2018 Encounter Surgery/Pediatrics Shazia Hutchinson MD [address] [place] [address] Small bowel obstruction (HRC) [address] Mei MD [address] [place] [address] [place] [address] Social History Tobacco Use Types Packs/Day Years [...] on file documented as of this encounter Last Filed Vital Signs Vital Sign Reading Time Taken Comments Blood Pressure 122/63 08/27/2018 6:04 AM FORWARDER OPERATOR Pulse 65 08/27/2018 6:04 AM FORWARDER OPERATOR Temperature 36.9 ??C (98.5 ??F) 08/27/2018 6:04 AM FORWARDER OPERATOR Respiratory Rate 16 08/27/2018 6:04 AM FORWARDER OPERATOR Oxygen Saturation 100% 08/27/2018 6:04 AM FORWARDER OPERATOR Inhaled Oxygen Concentration - - Weight 82.6 kg (182 lb 3.2 oz) 08/26/2018 9:42 PM FORWARDER OPERATOR Height 165.1 cm (5' 5) 08/20/2018 3:08 PM FORWARDER OPERATOR Body Mass Index 30.32 08/20/2018 3:08 PM FORWARDER OPERATOR documented in this encounter Discharge Summaries Padmaja Saavedra MD - 08/27/2018 12:[address] [facility] DISCHARGE SUMMARY Service: GENERAL SURGERY Date of Admission: 08/20/2018 Date of Discharge: 08/27/2018 Attending Physician: Dr. Hutchinson Admission Diagnosis: 1. Closed loop small bowel obstruction Discharge Diagnosis: 1. Closed loop small bowel obstruction, resolved Procedures: 08/20/2018 (Dr. Hutchinson/Dr. Núñez) 1. Diagnostic laparoscopy converted to exploratory laparotomy 2. Lysis of adhesions 3. Ileocolic resection Hospital Course: Ms. Rojas is a 63-year-old woman who presented to the ED with abdominal pain. Exam and CT findings concerning for closed loop small bowel obstruction thus patient was taken emergently to the operating room for the aforementioned procedure. The postop course was uneventful. The NGT was removed after return of bowel function, and her diet was gradually advanced. Cardiopulmonary and renal status remained stable throughout the admission. Pain was well controlled with oral pain medications. Discharge Exam: See day of discharge progress note. Discharge Medication List as of 08/27/2018 11:18 AM START taking these medications Details HYDROmorphone (DILAUDID) 2 MG tablet Take 1 Tablet by mouth every 3 hours as needed., Disp-10 Tablet, R-0, Q3H PRN Starting [facility] 08/27/2018, Oral, Print oxyCODONE (ROXICODONE) 5 MG immediate release tablet Take 1 Tablet by mouth every 4 hours as needed., Disp-20 Tablet, R-0, Q4H PRN Starting [facility] 08/27/2018, Oral, Print CONTINUE these medications which have NOT CHANGED Details amLODIPine (NORVASC) 10 MG tablet Take 10 mg by mouth daily., DAILY, Oral, Historical Ascorbic Acid (VITAMIN C OR) Take 1 tablet by mouth daily (every 24 hours)., DAILY (NS) Starting Fri01/02/2009, Oral, HistoricalPN: LW Unlisted clinician:Patient Initiated Therapy Calcium Citrate-Vitamin D (CALCIUM CITRATE + D OR) Take by mouth daily (every 24 hours)., DAILY (NS)Starting Fri01/02/2009, Oral, HistoricalPN: LW Unlisted clinician:Patient Initiated Therapy celecoxib (CELEBREX) 200 MG capsule Take 200 mg by mouth daily., DAILY, Oral, Historical cholecalciferol (AKA VITAMIN D3) 1000 UNITS tablet Take by mouth daily (every 24 hours)., DAILY (NS)Starting Fri01/02/2009, Oral, HistoricalPN: LW Unlisted clinician:Patient Initiated Therapy FLUoxetine (AKA PROZAC) 20 MG capsule Take 1 capsule by mouth daily (every 24 hours). LW Addl Instr:Indicated for: Depression, Disp-30, R-3, DAILY (NS) Starting Fri01/02/2009, Oral, HistoricalPN: LW Unlisted clinician:Outpatient Meds Reviewed levothyroxine (SYNTHROID) 175 MCG tablet Take 1 tablet po daily. Takes brand Synthroid., R-1, HistoricalPN: losartan/hydrochlorothiazide (HYZAAR) 100-25 MG tablet Take 0.5 Tablets by mouth daily., DAILY, Oral, Historical Multiple Vitamins-Minerals (MULTIVITAMIN OR) Take 1 tablet by mouth daily (every 24 hours)., Disp-100, R-13, DAILY (NS) Starting Fri01/02/2009, Oral, HistoricalPN: LW Unlisted clinician:Patient Initiated Therapy - - - - - Padmaja Saavedra MD, PGY6 Surgery ARDER OPERATOR documented in this encounter Discharge Instructions Discharge Instr - Other Shazia Castaneda MD - 08/25/2018 12:19 PM FORWARDER OPERATOR Diet: Advance diet as tolerated to regular foods. Drink lots of fluids and stay hydrated. Activity: As tolerated; please do not lift/push/pull greater than 15 lbs for 6 weeks. Wound Care: You may shower 48 hours after surgery; do not bathe/swim/soak incisions underwater for 2weeks or until fully healed. Jessica will need to be removed 10-14 days after surgery. Pain: Take pain medications as prescribed. Unless you have been advised by your primary physician not to take ibuprofen or if you have kidney problems you should start alternating 600 mg of ibuprofen every 6hours to help with pain control. You can also take acetaminophen in addition to this (not to exceed 4000 mg total of acetaminophen per 24 hour period.) You may have been prescribed stool softeners to help with constipation while on narcotic pain medication. Do not drive a motor vehicle or operate heavy machinery while taking narcotic pain medication. Do not return to work while taking narcotic pain medication. Do not drive a motor vehicle until you feel comfortable slamming on the brakes if you would need to do so during an emergency. Other: Please call surgery clinic at [phone] Evangelina Bridges' nurse if you experience any of the following: -Fever 101.3 or greater. -New redness, swelling or purulent (cream colored) drainage from your incision. -New nausea/vomiting or inability to tolerate oral intake. -New/significant pain not relieved by pain medications. -Please call if you have any other questions or concerns. If you have any issues outside of regular business hours, please call the [facility] [phone]. ARDER OPERATOR documented in this encounter Medications at Time of Discharge Medication Sig Dispensed Refills Start Date End Date amLODIPine (NORVASC) 10 MG Take 10 mg by mouth 0 tablet daily. Ascorbic Acid (VITAMIN C Take 1 tablet by 0 01/02 OR) mouth daily (every 24 hours). Calcium Citrate-Vitamin D Take by mouth daily 0 0 01/02/2009 (CALCIUM CITRATE + D OR) (every 24 hours). celecoxib (CELEBREX) 200 Take 200 mg by mouth 0 MG capsule daily. cholecalciferol (AKA Take by mouth daily 0 2008 VITAMIN D3) 1000 UNITS (every 24 hours). tablet FLUoxetine (AKA PROZAC) 20 Take 1 capsule by 30 3 MG capsule mouth daily (every 24 hours). LW Addl Instr:Indicated for: Depression HYDROmorphone (DILAUDID) 2 Take 1 Tablet by 10 Tablet 0 05/2019 MG tablet mouth every 3 hours as needed. levothyroxine (SYNTHROID) Take 1 tablet po 1 04/18 175 MCG tabletIndications: daily. Takes LAYNE Vogel Synthroid. 2014 1:28 PM Received from: External Pharmacy losartan/hydrochlorothiazi Take 0.5 Tablets by 0 de (HYZAAR) 100-25 MG mouth daily. tablet Multiple Vitamins-Minerals Take 1 tablet by 100 13 (MULTIVITAMIN OR) mouth daily (every 24 hours). oxyCODONE (ROXICODONE) 5 Take 1 Tablet by 20 Tablet 0 08/27 MG immediate release mouth every 4 hours tablet as needed. documented as of this encounter Progress Notes Erica Caraballo RN - 08/27/2018 12:03 PM CST DISCHARGE O: Patient safely discharged to home. D: Patient is alert and oriented x 4. Pt up independently . Discharge criteria met. Vaccines addressed prior to discharge. A: Discharge instructions and medications reviewed and given to patient. Prescriptions sent with patient. Belongings checklist reviewed with patient and belongings sent. Care plan issues addressed and education record updated. R: Patient verbalizes understanding and teaches back discharge instructions. Patient discharged by: ambulation with family. Erica Caraballo RN 12:04 PM 08/27/2018 ARDER OPERATOR Padmaja Saavedra MD - 08/27/2018 6:53 AM CST ACUTE CARE SURGERY PROGRESS NOTE Tolerating general diet. Multiple BMs - now brown in color. Feels ok to go home. Thinks she tolerated oral dilaudid better than oxycodone. PHYSICAL EXAM: Vital Signs: BP 122/63 (BP Location: Right Arm, BP Cuff Size: Adult Regular) Pulse 65 Temp 98.5 ??F (36.9 ??C) (Oral) Resp 16 Ht 5' 5 (165.1 cm) Wt 182 lb 3.2 oz (57396 g) SpO2 100% BMI 30.32 kg/m?? NAD NLB Abd soft, nondist, nonttp Incisions c/d/i with jessica - mild ecchymosis of midline incision, some reactive erythema near jessica around umbilicus, port sites with steris ASSESSMENT/PLAN: 63F with SBO now POD7 (08/20) s/p ex lap with ileocolic resection. -General diet -Pain: acet and ibuprofen, oral dilaudid prn -Up with assist -Ppx: IS, lovenox bid, ambulate -Anticipate dc later today - - - - - Padmaja Saavedra MD, MPH (PGY6) Surgery ARDER OPERATOR Associated attestation - Jill Thornton MD - 08/27/2018 10:27 AM FORWARDER OPERATOR Looks great Home today [place] out [place] [address] Hutchinson in 4 weeks Yanna Dillon - 08/26/2018 4:21 PM CST SPIRITUAL CARE BRIEF NOTE Summary of Interaction: I found out, while already into the room that Valeri was trying take a nap. She graciously told me it was OK and that she was OK and doing better but needed to rest a while. I shared a healing blessing for her and she thanked me for stopping by. Plan: Spiritual care is available for spiritual/emotional support. Request can be made on [employer]. Data Summary: 08/26/18 1620 Referral Source Referral Source Cycle Liaison Self-Referral Reason for Referral Length of Stay Yes Spiritual Assessment Yes Emotional/Spiritual Distress Anxiousness Low Pain Low Sadness Low Cycle Liaison Interventions Healing Modalities Prayer/Healing Note completed by: Chaplain Tejinder (PhD) Pager: [phone] ARDER OPERATOR Padmaja Saavedra MD - 08/26/2018 7:27 AM CST ACUTE CARE SURGERY PROGRESS NOTE Tolerating clears. BM x2; very dark in color; no bright red blood. No nausea. Thinks oxycodone givesher night sweats and dizziness; would like to optimize non narcotics. PHYSICAL EXAM: Vital Signs: BP (!) 143/59 (BP Location: Right Arm, BP Cuff Size: Adult Regular) Pulse 67 Temp 99.1 ??F (37.3 ??C) (Oral) Resp 18 Ht 5' 5 (165.1 cm) Wt 183 lb 11.2 oz (05786 g) SpO2 97% BMI 30.57 kg/m?? NAD NLB Abd soft, nondist, nonttp Incisions c/d/i with jessica - mild ecchymosis of midline incision, port sites with steris Hg 8 > 8.1 ASSESSMENT/PLAN: 63F with SBO now POD6 (08/20) s/p ex lap with ileocolic resection. -General diet today -Monitor BMs - suspect old blood 2/2 anastomosis -Pain: acet and ibuprofen, switch from oral oxycodone to oral dilaudid to see if tolerance improved -Up with assist -Ppx: IS, lovenox bid, ambulate -Anticipate dc tomorrow - - - - - Padmaja Saavedra MD, MPH (PGY6) Surgery ARDER OPERATOR Associated attestation - Jill Thornton MD - 08/26/2018 10:10 AM FORWARDER OPERATOR Looks great Mckenzie Anaya RN - 08/25/2018 4:45 PM CST Shift Update: Advanced to clears. Tolerating well with no c/o increased pain or nausea. Passing flatus, one large BM today, dark red in color. MD aware. Midline incision stapled, CDI with mild redness surrounding. Ambulating frequently and independently. Rash on back, pt reports is likely due to bed sheets. Applying hydrocortisone cream PRN. WORKDAY FIN[employer]CIALS CONSULTANT at 0.2 bolus, managing pain well. Will continue to monitor. Mckenzie Anaya RN 08/25/2018, 4:47 PM ARDER OPERATOR Padmaja Saavedra MD - 08/25/2018 2:35 PM CST ACUTE CARE SURGERY PROGRESS NOTE Tolerating clears. + flatus. No addl BMs after BM yesterday. No nausea. PHYSICAL EXAM: Vital Signs: BP (!) 140/68 (BP Location: Right Arm, BP Cuff Size: Adult Regular/Long) Pulse 69 Temp 99.7 ??F (37.6 ??C) (Oral) Resp 20 Ht 5' 5 (165.1 cm) Wt 185 lb 12.8 oz (51881 g) SpO2 97% BMI 30.92 kg/m?? NAD NLB Abd soft, nondist, nonttp Incisions c/d/i with jessica - mild ecchymosis of midline incision, port sites with steris ASSESSMENT/PLAN: 63F with SBO now POD5 (08/20) s/p ex lap with ileocolic resection. -CLD today -Up with assist -Ppx: IS, lovenox bid, ambulate - - - - - Padmaja Saavedra MD, MPH (PGY6) Surgery ARDER OPERATOR Lavon Radford - 08/25/2018 2:15 PM CST Spiritual Care. Pt out of the room when I attempted to visit. Spiritual care will remain available. 08/25/18 1415 Referral Source Referral Source Cycle Liaison Self-Referral Reason for Referral Spiritual Assessment Yes Chaplain YAKELIN Sanfordiv., MA/CP Phone: [phone], Pager: [phone] ARDER OPER[address]ta Youssef RD - 08/24/2018 10:30 AM CST NUTRITION ASSESSMENT Referral for this 63 y.o. female due to: ?? NPO x 5 days Additional Factors Affecting Nutrition Status: ?? SBO ?? S/p ex lap with ileocolic resection on 08/20 ?? NG-tube to LIS Admit Dx: ?? Small bowel obstruction (HRC) [K56.609] ?? SBO (small bowel obstruction) (HRC) [K56.609] PMH/Patient Active Problem List: Patient Active Problem List Diagnosis ??? SBO (small bowel obstruction) (HRC) No past medical history on file. No past surgical history on file. Social/Living Environment: , never smoker. Allergies Allergen Reactions ??? Cefazolin Rash PN: LW Reaction: Rash, Generalized, ??? Meperidine PN: LW Reaction: GI Upset ??? Morphine PN: LW Reaction: GI Upset ??? Review Contrast Media PN: LW CM1: CONTRAST- nka Reaction : ??? Review Food Intolerance PN: LW FI1: nka Diet: NPO: Strict NPO Appetite/ PO Intake: NA GI Function: LBM /7, loose per flow sheets. Anthropometrics: Height: 1.651 m (5' 5) Weight Hx: Wt Readings from Last 3 Encounters: 08/23/18 86.5 kg (190 lb 9.6 oz) BMI: 31.72 kg/m?? IBW: 57 kg +/- 10% Labs Noted: Lab Results Component Value Date/Time Hemoglobin 8.0 (L) 08/23/2018619 Sodium 143 08/23/2018619 Potassium 3.9 08/23/2018619 Calcium 8.2 (L) 08/23/2018619 Lab Glucose 80 08/23/2018619 Blood Urea Nitrogen 13 08/23/2018619 Creatinine Serum 0.46 (L) 08/23/2018619 Est GFR Am >60 08/23/2018619 Est GFR Non-Afr Am >60 08/23/2018619 Medications Noted: Synthroid. IV Fluids: ??? dextrose 5%-NaCl 0.45%-KCl 20 mEq/liter 125 mL/hr at 08/24/18 0832 ??? HYDROmorphone in 0.9% sodium chloride DIAGNOSIS- NUTRITION (NI-2.1) Inadequate oral food/beverage intake related to SBO as evidenced by NPO Diet status x > 5 days. INTERVENTION Nutrition Plan: ?? Await diet advancement Recommendations to Physician: ?? If GI tract unable to be used or diet unable to be advanced, may need to consider nutrition support within the next few days. MONITORING AND EVALUATION Monitor: Diet advancement, weight, labs within 5 days. Nutrition Risk Level: Moderate Goal: Diet advancement soon or nutrition support to meet nutritional needs. PROVIDER NAME Annetta Youssef RDN, LD (Contact Dietitian assigned to patient's floor using [employer]) ARDER OPERATOR Padmaja Saavedra MD - 08/24/2018 7:26 AM CST ACUTE CARE SURGERY PROGRESS NOTE Pt reports extreme discomfort 2/2 the NGT. Thinks she probably had 3 cups (~36 ounces) of ice chips the last day. She does not feel nauseated when her NGT is clamped during walks. Passed flatus twice overnight. PHYSICAL EXAM: Vital Signs: BP (!) 175/77 (BP Location: Right Arm, BP Cuff Size: Adult Regular) Pulse 70 Temp 98.5 ??F (36.9 ??C) (Oral) Resp 16 Ht 5' 5 (165.1 cm) Wt 190 lb 9.6 oz (00257 g) SpO2 96% BMI 31.72 kg/m?? NAD NLB Abd soft, mild distention, nonttp Incisions c/d/i with jessica - mild ecchymosis around umbilicus, port sites with steris NGT with yellow output NGT 1.8L - accounting for ice chips more likely ~800-1000 mL ASSESSMENT/PLAN: 63F with SBO now POD4 (08/20) s/p ex lap with ileocolic resection. -NPO, NGT - possible dc NGT later today pending staff assessment -Up with assist -IV levothyroxine until NGT out -IV labetalol prn until NGT out as she hasn't been able to take her oral BP meds -Ppx: IS, lovenox bid, ambulate - - - - - Padmaja Saavedra MD, MPH (PGY6) Surgery ARDER OPERATOR Ina Villagomez MD - 08/23/2018 8:57 AM CST General Surgery Progress Note 08/23/18 ?? Stable overnight. Pain controlled with WORKDAY FINANCIALS CONSULTANT. NGT to LIS with lots of output (1.75 L). Had 3 small icechips cups. No bm, no gas. Ambulated 4 times. ?? BP (!) 146/69 (BP Location: Right Arm, BP Cuff Size: Adult Regular) Pulse 72 Temp 98.5 ??F (36.9??C) (Oral) Resp 18 Ht 5' 5 (165.1 cm) Wt 184 lb 3.2 oz (43896 g) SpO2 93% BMI 30.65 kg/m? NGT 1750, blood tinged UOP 1050, 300 since midnight ?? PE NAD NLB Abd soft, nondistended, incision c/d/i with jessica Ext wwp ?? Labs Na 143 K 3.9 ?? A/P: 63F with closed loop obstruction. POD3 s/p exploratory laparotomy and ileocolic resection. Ileus. -continue WORKDAY FINANCIALS CONSULTANT -continue NPO, IVF@125, continue NGT to LIS -start omeprazole for blood-tinged NGT output -monitor UOP -continue lovenox ppx -encourage ambulation ?? Discussed with staff, Dr. Hutchinson. ?? Ina Olson MD PGY3 General surgery ARDER OPERATOR Associated attestation - Shazia Hutchinson MD - 08/23/2018 6:19 PM FORWARDER OPERATOR Patient seen and examined independently by me. All labs and imaging personally reviewed by me. I agree with the resident note, which reflects my assessment. POD#3 s/p ex lap, ileocolic resection. Awaiting return of bowel function. Increased NG output yesterday, 1.75L, still not passing gas, no BM. Pain well controlled. Ambulating. Lovenox for ppx. Shazia Hutchinson MD 08/23/2018, 6:19 PM Ina Villagomez MD - 08/22/2018 12:56 PM CST General Surgery Progress Note 08/22/18 Stable overnight. Pain controlled with WORKDAY FIN[employer]CIALS CONSULTANT. NGT to LIS. Burping. No bm. No gas. Ambulated. BP (!) 146/69 (BP Location: Right Arm, BP Cuff Size: Adult Regular) Pulse 72 Temp 98.5 ??F (36.9??C) (Oral) Resp 18 Ht 5' 5 (165.1 cm) Wt 184 lb 3.2 oz (41231 g) SpO2 93% BMI 30.65 kg/m?? NGT 650 and 250 overnight UOP 750, 450 since midnight PE NAD NLB Abd soft, nondistended, incision c/d/i with jessica Ext wwp Labs WBC 7.1 Hg 8.3 from 9.2 A/P: 63F with closed loop obstruction. POD2 s/p exploratory laparotomy and ileocolic resection. Awaiting return of bowel function. -continue WORKDAY FIN[employer]CIALS CONSULTANT -continue NPO, IVF@125, continue NGT to LIS for now -will recheck hg at 6 pm, hold lovenox until then, likely downward drift is dilutional -monitor UOP -encourage ambulation Discussed with staff, Dr. Hutchinson. Ina Olson MD PGY3 General surgery ARDER OPERATOR Associated attestation - Shazia Hutchinson MD - 08/22/2018 1:33 PM FORWARDER OPERATOR Patient seen and examined independently by me. All labs and imaging personally reviewed by me. I agree with the resident note, which reflects my assessment. Doing well now POD#2. Hgb drifted somewhat, held am lovenox. Plan to recheck in PM and give lovenox if stable. Not passing gas, burping, will keep NG to LIS today. Shazia Hutchinson MD 08/22/2018, 1:33 PM Brii Rai RN - 08/22/2018 6:31 AM CST O: Shift status update D: Patient abdomen soft, non distended, faint to hypoactive bowel sounds, denies flatus. NG low continuous suction, tanish brown in color. Denies any nausea. Up with a SBA, voiding adequate amount of urine. On 2L of O2 via NC overnight to keep oxygen saturation greater than 90%. A: NPO. WORKDAY FINANCIALS CONSULTANT Dilaudid 0.2 mg effective for pain. Incentive spirometer encouraged. R: Resting in between nursing cares. Brii Rai RN 6:34 AM 08/22/2018 ARDER OPERATOR Padmaja Saavedra MD - 08/21/2018 8:38 AM CST ACUTE CARE SURGERY PROGRESS NOTE Patient reports pain is controlled. Thinks she passed a little bit of flatus. PHYSICAL EXAM: Vital Signs: BP 133/49 (BP Location: Left Arm, BP Cuff Size: Adult Regular/Long) Pulse 78 Temp 98.6 ??F (37 ??C) (Oral) Resp 17 Ht 5' 5 (165.1 cm) Wt 190 lb 8 oz (97250 g) SpO2 100% BMI 31.70 kg/m?? NAD NLB Abd soft, mild distention, nonttp Incisions c/d/i - midline dressing partially saturated with serosang output NGT with green fluid in tubing NGT 250 BMP reviewed ASSESSMENT/PLAN: 63F with SBO now POD1 s/p ex lap with ileocolic resection. -NPO, NGT - possible dc NGT later today pending output -Dc cruz -Up with assist -Pharm med rec - pt reports she is on BP meds at home -Ppx: IS, lovenox to start this evening - - - - - Padmaja Saavedra MD, MPH (PGY6) Surgery ARDER OPERATOR Associated attestation - Shazia Hutchinson MD - 08/21/2018 6:36 PM FORWARDER OPERATOR Patient seen and examined independently by me. All labs and imaging personally reviewed by me. I agree with the resident note, which reflects my assessment. POD#1 s/p ex lap, ileocolic resection. Doing well, pain controlled with WORK[employer]CI[employer] CONSULTANT. Not passing gas yet. Cruz out, voiding. Lovenox. Plan to take NG out tomorrow if minimal output. Shazia Hutchinson MD 08/21/2018, 6:36 PM Flako Rizo RN - 08/20/2018 11:30 PM CST POST-OP O: Patient will have a stable post-op period. D: Pt arrived to room [id number]/[id number], at 2130. Patient is alert and oriented x 4. Mid line incision dressing w/ scant bloody drainage. Cruz intact and patent, NGT at low contineous suction. Initial Vital Signs: Temp: 37.1 ??C (98.8 ??F) (08/20/182139) Pulse: 79 (01/03/19 2310) Resp: 18 (08/20/182309) BP: (!) 145/64 (08/20/182309) SpO2: 99 % (08/20/182309) Pain rated at: 2. See Assessment and Doc Flowsheets for equipment and lines/drains. Dressing is clean, dry, intact. A: Monitor vital signs and assess patient per protocol. Patient oriented to bed controls and call lights. Discussed plan of care with patient. See Education Record. R: Patient settled to room. Will continue to monitor. ARDER OPERATOR documented in this encounter Procedure Notes Shane Núñez MD - 08/20/2018 8:[address] [facility] Brief Operative Progress Note Surgery Date: 08/20/2018 Co-Surgeon(s): * Shazia Hutchinson MD * Shane Núñez MD Pre-op Diagnosis: * SBO (small bowel obstruction) (HRC) [K56.609] Post-op Diagnosis: * SBO (small bowel obstruction) (HRC) [K56.609] Procedure(s) (LRB): DIAGNOSTIC LAPAROSCOPY CONVERTED TO EXPLORATORY LAPAROTOMY, ILEO COLIC RESCTION WITH LYSIS OF ADHESIONS (N/A) EBL: 75 mL UOP: 550 mL Specimens: ID Type Source Tests Collected by Time Destination A : Ileum and cecum Tissue Abdomen Shazia Hutchinson MD 08/20/2018 1833 Pathology Complications / Findings: None/Pelvic adhesion tethering small bowel in pelvis. 75 cm of bowel resected with side to side ileocolic anastomosis created. Padmaja Saavedra MD ARDER OPERATOR Padmaja Saavedra MD - 08/20/2018 8:00 PM CST OPERATIVE REPORT Pre-op Diagnosis(es): 1. Closed loop small bowel obstruction Post-op Diagnosis(es): 1. Closed loop small bowel obstruction secondary to adhesion Procedure: 1. Diagnostic laparoscopy converted to exploratory laparotomy 2. Lysis of adhesions 3. Ileocolic resection Primary Surgeon(s): 1. Dr. Shazia Hutchinson 2. Dr. Shane Núñez Box Icer(s): 1. Padmaja Saavedra, [facility] General Surgery Resident Anesthesia: GETA EBL: 75 mL Specimen: distal ileum and cecum Findings: Pelvic adhesion tethering small bowel in pelvis. 75 cm of nonviable bowel resected. Side to side stapled ileocolic anastomosis created. Complications: None Indication: Ms. Valeri Rojas is a 63-year-old woman who presented with less than one day of abdominal pain and nausea. Exam and CT concerning for a closed loop bowel obstruction. After consultation with the patient and her spouse, we proceeded to the operating room for emergent exploration. Procedure: Consent was obtained prior to the procedure. The patient was brought to the operating room and induced under general anesthesia. The site was prepped and draped in sterile fashion. A time-out was performed verifying the correct patient, procedure, and site. A 5 mm port was placed in the left upper quadrant using the direct visualization technique with a 0 degree camera. There were distended loops of small bowel in the lower abdomen, and there was mild adhesive disease to the anterior abdominal wall in the right lower quadrant. There was hemorrhagic ascites in the pelvis and near the liver. Two additional 5 mm ports were placed, one infraumbilical and one in the right lower quadrant. Atraumatic graspers were introduced, and the patient was positioned inTredelenberg. There were also distended loops of small bowel in the pelvis with evidence of hemorrhagic small bowel tightly tethered deep in the pelvis. At this juncture, further laparoscopic exploration was aborted, and the case was converted to an open laparotomy. A lower midline laparotomy was performed which included the infraumbilical port site. Dissection wascarried down through the soft tissue until the fascia was identified. The fascia was thin and attenuated. The fascia and peritoneum were carefully entered. Dilated small bowel were immediately encountered. The proximal small bowel was eviscerated and ran to the Ligament of Treitz. This bowel was viable. The more distal small bowel was dilated and tracked into the pelvis. There was an segment of smallbowel which was necrotic. This segment was tethered in the pelvis by an adhesion to the right anterolateral sidewall. This adhesion was isolated and gradually transected. The bowel was then able to be c ompletely eviscerated. Starting 10 cm proximal to the cecum, a segment of the ileum was necrotic andnonviable. It was elected to proceed with small bowel resection. Given the proximity to the ileocecal valve, a cecectomy was also performed. A mesenteric window was created at the proximal margin of resection, and the small bowel was stapled with a blue load on the LAISHA stapler. The mesentery was then sequentially clamped and tied with 2-0 vicryl sutures, taking care to preserve the major mesenteric vasculature. A mesenteric window was then created in the distal ascending colon, and the colon was transected with a blue load on the LAISHA stapler. In order to create the anastomosis, the ascending colon only required minimal mobilization from the lateral wall. A [id number] anastomosis was then created. The colon and small bowel were lined up, approximating the antimesenteric border of the small bowel with the taenia of the colon. The corner ofthe staple line was opened from both bowel stumps, and the LAISHA stapler with a blue load was introduced into the lumens. The stapler was fired. The lumen was inspected to ensure patency. The now open end of the anastomosis was aligned using Allis clamps, ensuring the staple lines were offset. A blue load on the LAISHA stapler was then fired across the end, under the Allis clamps. The stapler misfired twic e. The stapler was then replaced, and a blue load was then successfully fired to close the stump. A few Vicryl sutures were then placed in a Lembert fashion to dunk the staple line. The lumen was againmanually inspected for patency. The bowel was then inspected once again from anastomosis to the Ligament of Treitz. The pelvis was also inspected to ensure hemostasis. The visualized colon was normal and viable. A nasogastric tube was placed, with placement confirmed with manual inspection. A closing tray was used. The abdomen was irrigated with warm saline which was then evacuated. The fascia was closed with running 0-0 PDS. The soft tissue was irrigated. Manvel were used to close the skin. The remaining two port sites were closed with 4-0 Monocryl and benzoin with steri strips. The patient tolerated the procedure well, and all final counts were correct. The patient was extubated in the OR. The staff surgeon was present for all critical portions of the case. Padmaja Saavedra MD MPH ([id number]) General Surgery Resident ARDER OPERATOR Shane Núñez MD - 08/20/2018 12:00 PM CST NAME: VALERI ROJAS MR#: [id number] CSN: [id number] AUTHENTICATING CLINICIAN: Shane Núñez MD CONFIRM #: [id number] LOC: 1 OPERATIVE REPORT DATE OF OPERATION: 08/20/2018 : 1955 SURGEON: Shane Núñez MD PREOPERATIVE DIAGNOSIS: Closed loop small bowel obstruction. POSTOP DIAGNOSIS: Closed loop small bowel obstruction with bowel necrosis. PROCEDURE: 1. Diagnostic laparoscopy converted to exploratory laparotomy. 2. Lysis of adhesions. 3. Ileocolic resection (partial removal of the colon with removal of the distal 85 cm of ileum including the ileocecal valve, with ileocolic anastomosis). CO-SURGEONS: Dr. Shazia Hutchinson and Dr. Shane Núñez. BRIM FLEXER: Padmaja Saavedra, [facility] [employer]ic Subcontractor. ANESTHESIA: General endotracheal anesthesia. ESTIMATED BLOOD LOSS: 75 mL. SPECIMEN: Distal ileum and cecum sent to pathology. COMPLICATIONS: None. FINDINGS: Pelvic adhesions tethering the distal 75 cm of ileum in a closed loop obstruction. Nonviable bowel was present and resected. INDICATIONS: The patient is a 63-year-old female who presented with sudden onset of abdominal pain and nausea. She was evaluated on the same day in the emergency room and found to have CT evidence concerning for a closed loop small bowel obstruction. Dr. Hutchinson consulted with the patient and her family and proceeded to the operating room for exploration. She understood the risks, benefits, and alternatives to the procedure including the possibility of bowel resection, anastomotic leak, wound infection, hemorrhage, ostomy. PROCEDURE IN DETAIL: Please see Dr. Hutchinson' dictations for the positioning of the patient, patient preparation, diagnostic laparoscopy, and conversion to the open portion of the procedure. I was asked to scrub in to the case as a co-surgeon to assist with the lysis of adhesions in the pelvis. This required colorectal surgery expertise to identify the pelvic structures and lyse the chronic dense adhesions. Dr. Hutchinson asked that I proceed with the bowel resection from this point on. As I began my portion of the operation, the small intestine appeared nonviable and was densely tethered to pelvic adhesions. We carefully identified the ureters and pelvic anatomy. We identified that the pelvic adhesions from the vaginal cu ff were the source of the closed loop small-bowel obstruction. We took down these peritoneal attachments extending from the vaginal cuff. One of the attachments was connected to the sigmoid colon. Oncefreed up from the adhesions, the small bowel was easily manipulated out of the pelvis. We measured ap proximately 75 cm of nonviable ischemic/necrotic bowel. This was ileum that extended all the way to the ileocecal valve. The ileocecal valve and cecum were viable; however, there was not a way to preserve the distal ileum without removing the ileocecal valve and cecum. We therefore proceeded with an ileocolic resection. The Ethicon 75 mm linear cutter with a blue setting was used to divide the ileum at a point where the ileum was viable proximal to the area of necrotic tissue. The mesentery to the ileum was divided between clamps and tied with 2-0 Vicryl ties. We carried this mesenteric ligation all the way to the proximal ascending colon. We cleared an area around the ascending colon that would be amenable for anastomosis. The Ethicon linear cutter 75 mm stapler was then used to divide the ascending colon just distal to the ileocecal valve. A specimen of 85 cm of distal ileum along with the cecum and ileocecal valve were sent to Pathology. We then created an anastomosis between the ileum and as cending colon. Enterotomies were created on the antimesenteric portions of each limb of intestine. The Ethicon linear cutter and 75 mm stapler was placed in each lumen and the stapler was closed and fired without difficulty. We then attempted to close the common enterotomy using a second firing of the75 mm stapler; however, the stapler misfired twice and broke at this point. Therefore, we obtained anew stapler and safely completed the closure of the common enterotomy. 3-0 Vicryl was used to oversew the areas of crossing staple lines in the corners of the anastomosis. The anastomosis was returned to the abdominal cavity. There was no tension on the anastomosis. There was excellent blood supply. The abdomen was then irrigated with several liters of saline. Hemostasis was confirmed. We then removed all dirty gowns, gloves, instruments. A clean closing tray was used along with new drapes and cleangowns and gloves. We closed the midline incision with a running 0 PDS suture. Skin was irrigated. Jessica were used to close the skin. The 2 laparoscopic port sites were closed with 4-0 Monocryl. The patient tolerated the procedure well. There were no complications. She was transferred to the PACU in stable condition. DJW:MEDQ C: CONFIRM #: [id number] ARDER OPERATOR Shazia Hutchinson MD - 08/20/2018 12:00 PM CST NAME: VALERI ROJAS MR#: [id number] CSN: [id number] AUTHENTICATING CLINICIAN: Shazia Hutchinson MD CONFIRM #: [id number] LOC: 1 OPERATIVE REPORT DATE OF OPERATION: 08/20/2018 : 1955 SURGEON: Shazia Hutchinson MD . CO-SURGEON: Shane Núñez MD. RESIDENT SURGEON: Padmaja Saavedra MD. PREOPERATIVE DIAGNOSIS: Closed loop bowel obstruction. POSTOPERATIVE DIAGNOSES: 1.Closed loop bowel obstruction. 2.Ischemic small bowel. PROCEDURES PERFORMED: 1.Exploratory laparoscopy. 2.Exploratory laparotomy. 3.Ileocecectomy, with primary anastomosis. ANESTHESIA: General endotracheal. INDICATIONS FOR OPERATION: This is a 63-year-old female who presented to the emergency room with severe abdominal pain. A CT scan was obtained, which raised concern for a closed loop bowel obstruction in the lower pelvis, along with signs of likely small bowel ischemia. She has had multiple prior abdominal operations, includinga hysterectomy, appendectomy, and cholecystectomy. Given these findings, decision was made to bring the patient immediately to the operating room for exploration. DESCRIPTION OF PROCEDURE: The patient was seen in preinduction and the details of the planned procedure, as well as the risks and benefits, were described to the patient. She was agreeable to proceed, and signed informed consent. She was brought to the operating room, and placed in the supine position. General anesthesia was in duced. Preoperative antibiotics were administered. The abdomen was prepped and draped in the usual sterile fashion. A time-out was then performed. We began by placing a left upper quadrant 5 mm Visiport, and establishing insufflation. On first assessment, we saw dilated loops of viable small bowel, so we proceeded to place two more 5 mm ports, one in the infraumbilical midline and one in the right lower quadrant. We then proceeded with laparoscopic exploration, and, on further evaluation in the pelvis, we were able to identify some nonviable small bowel. This was very adherent within the pelvis, and we were unable to make any significant progress laparoscopically, so we then elected to convert to an open laparotomy. A lower midline incision was made with a scalpel, and carried down through the fascia with electrocautery. On further assessment in the pelvis, there appeared to be a thick band of scar tissue from thelower midline pelvis to the left pelvic sidewall and sigmoid colon. This band was compressing a loopof small bowel, causing strangulation. There was no denise perforation of the small bowel. This band was extremely thick, and it was unclear if any vital structures were within this. At this time, I had my partner, Dr. Núñez, scrub in, to further evaluate. We elected to lyse this band with electrocautery, and were then able to release the small bowel. There was approximately 75 cmof nonviable small bowel, which led all the way up to the ileocecal valve. Decision was made to proceed with ileocecectomy. Dr. Núñez then performed the resection and anastomosis; please see his dictation for full operative details. APW:MEDQ C: CONFIRM #: [id number] ARDER OPERATOR documented in this encounter Consult Notes Padmaja Saavedra MD - 08/20/2018 1:49 PM CST GENERAL SURGERY CONSULT NOTE ASSESSMENT/PLAN: Ms. Valeri Rojas is a 63-year-old woman with h/o multiple abdominal operations and breast cancer s/p mastectomy who presents with abdominal pain, nausea, and CT findings concerning for a closed loop SB obstruction. -To OR for laparoscopic possible open exploration -NPO Patient discussed with Dr. Hutchinson. Padmaja Saavedra MD MPH ([id number]) Surgery - - - - - - - - - - - - - - - - - - - - - - - - - - - - - - - - - - - REASON FOR CONSULT: closed loop bowel obstruction REQUESTING PHYSICIAN: Dr. Lehman CHIEF COMPLAINT: abdominal pain HISTORY OF PRESENT ILLNESS: Ms. Valeri Rojas is a 63-year-old woman with h/o multiple abdominal operations and breast cancer s/p mastectomy who presents to the ED due to abdominal pain. The patient reports she developed central abdominal pain shortly after eating breakfast at 7am. The pain is severe and constant. Did have a BM this am which was formed and nonbloody. Has had nausea. One small emesis after drinking a few sips of coffee. Has never had pain like this before. REVIEW OF SYSTEMS: As noted in HPI. + chills. No headache or dizziness. No chest pain. No shortness of breath. No bladder issues. No leg swelling. PAST MEDICAL HISTORY: OA HL HTN Right breast cancer Hypothyroidism PAST SURGICAL HISTORY: B/l mastectomy Lap kristina Open appendectomy Vaginal hysterectomy FAMILY HISTORY: No bleeding/clotting disorders. SOCIAL HISTORY: Tobacco use - denies. Alcohol use - 1 drink/week. 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 ALLERGIES: Allergies Allergen Reactions ??? Cefazolin Rash PN: LW Reaction: Rash, Generalized, ??? Meperidine PN: LW Reaction: GI Upset ??? Morphine PN: LW Reaction: GI Upset ??? Review Contrast Media PN: LW CM1: CONTRAST- nka Reaction : ??? Review Food Intolerance PN: LW FI1: nka MEDICATIONS: Prior to Admission Medications Prescriptions Last Dose Informant Patient Reported? Taking? Ascorbic Acid (VITAMIN C OR) No No Sig: Take 1 tablet by mouth daily (every 24 hours). Calcium Citrate-Vitamin D (CALCIUM CITRATE + D OR) No No Sig: Take by mouth daily (every 24 hours). FLUoxetine (AKA PROZAC) 20 MG capsule No No Sig: Take 1 capsule by mouth daily (every 24 hours). LW Addl Instr:Indicated for: Depression GLUCOSAMINE-CHONDROITIN OR No No Sig: Take by mouth daily (every 24 hours). LW Addl Instr:INDICATED FOR OSTEOARTHRITIS. Multiple Vitamins-Minerals (MULTIVITAMIN OR) No No Sig: Take 1 tablet by mouth daily (every 24 hours). UNKNOWN MEDICATION No No Sig: Indications: PN: cholecalciferol (AKA VITAMIN D3) 1000 UNITS tablet No No Sig: Take by mouth daily (every 24 hours). hydroxychloroquine (AKA PLAQUENIL) 200 MG tablet No No Sig: Take 1 tablet by mouth 2 times daily. levothyroxine (SYNTHROID) 175 MCG tablet Yes No Sig: Indications: PN: LAYNE NICHOLE Wed May 03, 2015 1:28 PM Received from: External Pharmacy omeprazole ([facility] OMEPRAZOLE) 20 MG enteric coated tablet No No Sig: Take 1 tablet by mouth daily (every 24 hours). LW Addl Instr:Indicated for: Acid Reflux piroxicam (AKA FELDENE) 20 MG capsule No No Sig: Take 1 capsule by mouth daily (every 24 hours). LW Addl Instr:Take with food. Indicated for: Arthritis Facility-Administered Medications: None PHYSICAL EXAM: BP (!) 144/61 Pulse (!) 56 Temp 97.4 ??F (36.3 ??C) (Oral) Resp 22 Wt 180 lb (83269 g) SpO2 100% General: Appears uncomfortable laying flat in bed. Neurologic: Alert and oriented. Head/Neck: Sclerae non-icteric. Mucous membranes dry. Normocephalic, atraumatic. Cardiovascular: WWP Respiratory: Non-labored breathing. GI/: Abdomen soft, non-distended, ttp periumbilical and suprapubic areas. Well-healed RLQ and portsite incisions. Extremities: No limb abnormalities. No pedal edema. Skin: As noted above. No rashes or lesions appreciated. LABS: Reviewed. Cr 0.54 WBC 9.7 with left shift IMAGING: Reviewed. Ct Abd Pelvis Wo Iv Cont Stone Result Date: 08/20/2018 COMPARISON: None. TECHNIQUE: Images were obtained through the abdomen and pelvis without contrast using a renal stone protocol. FINDINGS: There is a closed loop small bowel obstruction likely secondaryto an internal hernia in the lower pelvis. The loops of small bowel are thick walled with moderate adjacent mesenteric edema, worrisome for ischemia. No pneumatosis or free air. The involved loops are just proximal to the distal and terminal ileum which are decompressed. There is anterior displacementof the urinary bladder secondary to the internal hernia. There are also mildly dilated loops of small bowel in the midabdomen proximal to the internal hernia with some adjacent mesenteric edema in the right upper quadrant. However, some of the fluid in the right mid abdomen has a somewhat more nodularappearance (images 58 and 60 of series 2) and omental implants are not excluded. The visualized lungbases are clear. The visualized distal esophagus is unremarkable. There is a 7 mm fat attenuation les ion in the dome of the liver compatible with lipoma. The patient is status post cholecystectomy. There are calcified granulomas in the spleen. The pancreas, adrenal glands and left kidney are unremarkable. There is a 1.5 cm probable cyst in the right mid kidney. No hydronephrosis or definite ureteral stone. The appendix, uterus and ovaries are not visualized. No definite adenopathy in the abdomen or pelvis. There are multilevel degenerative changes in the lumbar spine. No suspicious osseous lesions are identified. The visualized lung bases are clear. The visualized distal esophagus is unremarkable. IMPRESSION: 1. Closed loop small bowel obstruction likely secondary to an internal hernia in the lower pelvis with findings worrisome for ischemia in the involved small bowel loops. The findings were called to Dr. Lehman at 1:30 PM on 08/20/2018. 2. There is also mild dilatation of small bowel loops mid abdomen proximal to the closed loop obstruction in the pelvis. There is focal probable mesenteric fluid adjacent to the more proximal small bowel loops in the right midabdomen although some areas havea somewhat more nodular appearance and omental implants could not entirely be excluded. ARDER OPERATOR Associated attestation - Shazia Hutchinson MD - 08/23/2018 6:16 PM FORWARDER OPERATOR Patient seen and examined independently by me. All labs and imaging personally reviewed by me. I agree with the resident note, which reflects my assessment. 63 yo F w/ hx of hysterectomy, lap kristina, open appendectomy presented with abdominal pain, nausea and CT evidence of SBO with likely closed loop obstruction. Some concern for potential ischemia as well, although labs/vitals WNL. Plan to proceed to OR for laparoscopic exploration, possible open, possible bowel resection. This note will serve as the H&P. Shazia Hutchinson MD 08/20/2018, 3:37 PM documented in this encounter ED Notes Radha Nino - 08/20/2018 1:28 PM CST Patient walked to and from the bathroom with little assistance ARDER OPERATOR Abdoulaye Lehman MD - 08/20/2018 11:56 AM CST Chief Complaint: Abdominal pain HPI: Valeri Rojas is a 63 y.o. female who presents to the emergency department for evaluation of gradual onset lower abdominal pain beginning at 7 am this morning. The abdominal pain radiates into the bilateral back and was accompanied with one episode of emesis. She denies blood in emesis. She notes having a normal, soft bowel movement at 6:30 am this morning, denies diarrhea or constipation She hasnever had pain like this in the past. Of note, the patients appendix and gallbladder are surgically removed. She denies dysuria or frequency. She denies chest pain Medications: Ascorbic Acid (VITAMIN C OR) Calcium Citrate-Vitamin D (CALCIUM CITRATE + D OR) cholecalciferol (AKA VITAMIN D3) 1000 UNITS tablet FLUoxetine (AKA PROZAC) 20 MG capsule GLUCOSAMINE-CHONDROITIN OR hydroxychloroquine (AKA PLAQUENIL) 200 MG tablet levothyroxine (SYNTHROID) 175 MCG tablet omeprazole ([facility] OMEPRAZOLE) 20 MG enteric coated tablet piroxicam (AKA FELDENE) 20 MG capsule celecoxib (CELEBREX) 200 MG capsule?? Allergies: Cefazolin Meperidine Morphine Review Contrast Media Review Food Intolerance Past Medical History: Heart murmur Osteoarthritis Hands, multiple joints, followed by Rheum?? Depression Hypertension Hyperlipidemia Constipation Obesity Hypothyroidism Female stress incontinence Other specified menopausal and postmenopausal disorder Malignant neoplasm of female breast Temporomandibular joint disorders, unspecified Past Surgical History: Hysterectomy Gallbladder removal C APPENDECTOMY HC MASTECTOMY, SIMPLE, COMPLETE total thyroidectomy COLONOSCOPY Family History: Hypertensin Parkinson's Cancer CAD Cerebrovascular disease Arthritis Osteoporosis Brain aneurysm Social History: Marital status: Tobacco Use: never smoker Alcohol Use: 1 glass of wine per week Review of Systems Cardiovascular: Negative for chest pain. Gastrointestinal: Positive for abdominal pain and vomiting. Negative for constipation and diarrhea. Negative for blood in emesis Genitourinary: Negative for dysuria and frequency. Musculoskeletal: Positive for back pain. All other systems reviewed and are negative. Physical Exam: Triage Vitals [08/20/18 1127] Temp 36.3 ??C (97.4 ??F) Temp src Oral Pulse (!) 56 Resp 22 BP (!) 147/72 SpO2 100 % Physical Exam Constitutional: She is oriented to person, place, and time. She is cooperative. She appears distressed. HENT: Head: Atraumatic. Nose: Nose normal. Mouth/Throat: Oropharynx is clear and moist. Eyes: Pupils are equal, round, and reactive to light. Conjunctivae are normal. Neck: Neck supple. Cardiovascular: Normal rate and regular rhythm. Pulmonary/Chest: Effort normal and breath sounds normal. No respiratory distress. Abdominal: Soft. There is tenderness in the right lower quadrant, suprapubic area and left lower quadrant. There is no rigidity and no rebound. Neurological: She is alert and oriented to person, place, and time. She has normal strength. No sensory deficit. Skin: Skin is warm and dry. Psychiatric: She has a normal mood and affect. Vitals reviewed. Imaging: CT Abd pelvis WO IV Cont IMPRESSION: ?? 1. Closed loop small bowel obstruction likely secondary to an internal hernia in the lower pelvis with findings worrisome for ischemia in the involved small bowel loops. The findings were called to at 1:30 PM on 08/20/2018. 2. There is also mild dilatation of small bowel loops mid abdomen proximal to the closed loop obstruction in the pelvis. There is focal probable mesenteric fluid adjacent to the more proximal small bowel loops in the right mid abdomen although some areas have a somewhat more nodular appearance and omental implants could not entirely be excluded. Report per radiology (please see formal Radiology report for further details). Laboratory: CBC: WNL: WBC 9.7, HGB 13.6, PLT 271 Differential: neutrophils 8.2 (high), lymphocytes 0.9 (high) BMP: creat 0.54 (low), glucose 114 (high) o.w WNL Anion Gap: 15 Lipase: 22 Interventions: 1215 Zofran 4 mg IV 1215 hydromorphone 0.5 mg IV 1215 0.9% NS 500 mL IV 1248 hydromorphone 0.5 mg IV 1326 hydromorphone 0.5 mg IV 1414 hydromorphone 0.5 mg IV ED Course: Patient's past medical history was reviewed. I went into the room and examined the patient and discussed the plan of care, which included CT Abd pelvis. Patient was given interventions above. I reviewed the workup findings with the patient. I reevaluated the patient, who agrees to admission. I discussed the patient's case with General surgery, who agreed to admit the patient. The patient will be admitted for further evaluation, monitoring, and treatment. Last EC Vitals: Temp: 36.3 ??C (97.4 ??F) (08/20 1126) Temp src: Oral (08/20 1126) Pulse: 64 (08/20 1413) Resp: 22 (08/20 112) BP: 185/84 (08/20 1409) SpO2: 100 % (08/20 1413) Impression: Valeri Rojas is a 63 y.o. female with a history of multiple previous abdominal surgeries. She had acute onset of bilateral lower abdominal pain which has been severe and unrelenting. Patient required multiple titrated doses of intravenous narcotics for pain control. Patient had urinalysis which did not show evidence of UTI or hematuria. CBC showed normal white count and hemoglobin. BMP unremarkable. CT scan was performed without IV contrast, showed a closed loop small bowel obstruction, with concern of internal hernia and possible ischemia. In light of these findings, patient was evaluated by general surgery in the emergency department. Diagnosis: Final diagnoses: [K56.609] Small bowel obstruction (HRC) Plan: Patient is taken to the operating room urgently for anticipated laparoscopy/ laparotomy. Case discussed with Dr. Hutchinson from general surgery. I, Marcella Mead, am serving as a scribe to document services personally performed by Dr. Abdoulaye Lehman based on my observations and the provider's statements to me. 08/20/2018 at 2:26 PM [facility] Abdoulaye Lehman MD 08/20/18 1433 ARDER OPERATOR documented in this encounter Plan of Treatment Not on filedocumented as of this encounter Procedures Procedure Name Priority Date/Time Associated Comments Diagnosis COMPLETE BLOOD Specified Time 08/26/2018 6:24 Results for this COUNT-NO DIFF AM FORWARDER OPERATOR procedure are in the results section. ANION GAP Specified Time 08/23/2018 6:20 Results fo r this AM FORWARDER OPERATOR procedure are i n the results section. BASIC METABOLIC Specified Time 08/23/2018 6:20 Results for this PANEL AM FORWARDER OPERATOR procedure are i n the results section. COMPLETE BLOOD Specified Time 08/23/2018 6:20 Results for this COUNT-NO DIFF AM FORWARDER OPERATOR procedure are in the results section. ANION GAP Routine 08/22/2018 6:33 Results for this PM FORWARDER OPERATOR procedure are i n the results section. BASIC METABOLIC Routine 08/22/2018 6:33 Results f or this PANEL PM FORWARDER OPERATOR procedure are i n the results section. HEMOGLOBIN, BLOOD Routine 08/22/2018 6:33 Results for this PM FORWARDER OPERATOR procedure are i n the results section. COMPLETE BLOOD Specified Time 08/22/2018 6:11 Results for this COUNT-NO DIFF AM FORWARDER OPERATOR procedure are in the results section. COMPLETE BLOOD Routine 08/21/2018 3:10 Results fo r this COUNT-NO DIFF PM FORWARDER OPERATOR procedure are in the results section. ANION GAP Specified Time 08/21/2018 6:59 Results fo r this AM FORWARDER OPERATOR procedure are i n the results section. BASIC METABOLIC Specified Time 08/21/2018 6:59 Results for this PANEL AM FORWARDER OPERATOR procedure are i n the results section. LAPAROSCOPIC 08/20/2018 4:07 SBO (small bowel EXPLORATION ABDOMEN PM FORWARDER OPERATOR obstruction) ([facility]) Case Notes Dressing Benzoin, steristrip s, telfa, tegaderm UA WITH CULTURE IF POS STAT 08/20/2018 1:24 PM FORWARDER OPERATOR Results for this (ORTHODOXY) procedure are i n the results section . CT ABD PELVIS WO IV CONT STAT 08/20/2018 1:04 PM FORWARDER OPERATOR Results for this STONE procedure are i n the results section . EMERGENCY CENTER DRAW AND STAT 08/20/2018 11:54 AM FORWARDER OPERATOR Results for this HOLD procedure are i n the results section . ANION GAP STAT 08/20/2018 11:54 AM FORWARDER OPERATOR Resu lts for this procedure are i n the results section . COMPLETE BLOOD COUNT-W/DIFF STAT 08/20/2018 11:54 AM FORWARDER OPERATOR Results for this procedure are i n the results section . BASIC METABOLIC PANEL STAT 08/20/2018 11:54 AM FORWARDER OPERATOR Results for this procedure are i n the results section . DIFFERENTIAL STAT 08/20/2018 11:54 AM FORWARDER OPERATOR Resu lts for this procedure are i n the results section . LIPASE STAT 08/20/2018 11:54 AM FORWARDER OPERATOR Resu lts for this procedure are i n the results section . SURGICAL PATH, LATOYA Routine 08/20/2018 6:00 AM FORWARDER OPERATOR Results for this NICOLLET procedure are i n the results section . documented in this encounter Results (ABNORMAL) Complete Blood Count-No Diff (08/26/2018 6:24 AM FORWARDER OPERATOR) Patholo gist Method Time Signature White Blood Cell 5.7 3.8 - 11.0 PN SOFT Count k/cmm Red Blood Cell 2.75 (L) 3.70 - PN SOFT Count 5.20 m/cmm Hemoglobin 8.1 (L) 11.8 - PN SOFT 15.5 g/dL Hematocrit 24.7 (L) 35.0 - PN SOFT 46.0 % Mean Corpuscular 89.8 80.0 - PN SOFT Volume 100.0 fL RDW 13.2 11.0 - PN SOFT 15.0 % Platelet Count 235 140 - 450 PN SOFT k/cmm Specimen Anatomical Collection Method Collection Time Receive d Time (Source) Location / / Volume Laterality 08/26/2018 6:24 AM 9 6:47 FORWARDER OPERATOR AM FORWARDER OPERATOR Narrative PN SOFT - 08/26/2018 7:14 AM FORWARDER OPERATOR Performed at [address] [address] CLIA number [id number] Jill Thornton MD LAB_1 Performing Organization Address [facility] Phon e Number PN SOFT [address] [place] [address] Anion Gap (08/23/2018 6:20 AM FORWARDER OPERATOR) athologist Signature ANION GAP 7 0 - 16 mEq/L PN SOFT Specimen Anatomical Collection Method Collection Time Receive d Time (Source) Location / / Volume Laterality 08/23/2018 6:20 AM 9 6:27 FORWARDER OPERATOR AM FORWARDER OPERATOR Narrative PN SOFT - 08/23/2018 6:52 AM FORWARDER OPERATOR Performed at [address] [address] CLIA number [id number] Shazia Hutchinson MD LAB_1 Performing Organization Address City/[facility]/ZIP [facility] Phon e Number PN SOFT [address] [place] [address] (ABNORMAL) Complete Blood Count-No Diff (08/23/2018 6:20 AM FORWARDER OPERATOR) [facility] gist Method Time Signature White Blood Cell 8.0 3.8 - 11.0 PN SOFT Count k/cmm Red Blood Cell 2.61 (L) 3.70 - PN SOFT Count 5.20 m/cmm Hemoglobin 8.0 (L) 11.8 - PN SOFT 15.5 g/dL Hematocrit 25.0 (L) 35.0 - PN SOFT 46.0 % Mean Corpuscular 95.8 80.0 - PN SOFT Volume 100.0 fL RDW 13.6 11.0 - PN SOFT 15.0 % Platelet Count 167 140 - 450 PN SOFT k/cmm Specimen Anatomical Collection Method Collection Time Receive d Time (Source) Location / / Volume Laterality 08/23/2018 6:20 AM 9 6:27 FORWARDER OPERATOR AM FORWARDER OPERATOR Narrative PN SOFT - 08/23/2018 6:32 AM FORWARDER OPERATOR Performed at [facility], [facility] [place] [address] CLIA number [id number] Shazia Hutchinson MD LAB_1 Performing Organization Address City/State/ZIP Code Phon e Number PN SOFT [address] [place] [address] (ABNORMAL) Basic Metabolic Panel (08/23/2018 6:20 AM FORWARDER OPERATOR) Analysis Performed At [facility] logist Time Signature Creatinine 0.46 (L) 0.55 - PN SOFT Serum 1.02 mg/dL Lab Glucose 80 70 - 100 PN SOFT mg/dL Comment: The stated glucose range is for the fast ing state. Non-fasting glucose range is 70-180 mg/d L CO2 26 22 - 31 mmol/L PN SOFT Chloride 110 (H) 98 - 109 mmol/L PN SOFT Potassium 3.9 3.5 - 5.2 mmol/L PN SOFT Sodium 143 136 - 145 mmol/L PN SOFT Blood Urea Nitrogen 13 9 - 26 mg/dL PN SOFT Calcium 8.2 (L) 8.4 - 10.4 mg/dL PN SOFT Est GFR Am >60 >60 mL/min/1.73m2 PN SOFT Est GFR Non-Afr Am >60 >60 mL/min/1.73m2 PN SOFT Comment: Normal>60, moderate decrease 30 - 59, se anton decrease 15 - 29, renal failure <15 mL/min/1.73 m2 NOTE: ??Choose the eGFR result above reta ropriate for the race of the patient. Specimen Anatomical Collection Method Collection Time Receive d Time (Source) Location / / Volume Laterality 08/23/2018 6:20 AM 9 6:27 FORWARDER OPERATOR AM FORWARDER OPERATOR Narrative PN SOFT - 08/23/2018 6:52 AM FORWARDER [place]PER[place] [address] CLIA number [id number] Shazia Hutchinson MD LAB_1 Performing Organization Address [facility] Phon e Number PN SOFT [address] [place] [address] Anion Gap (08/22/2018 6:33 PM FORWARDER OPERATOR) P athologist Signature ANION GAP 8 0 - 16 mEq/L PN SOFT Specimen Anatomical Collection Method Collection Time Receive d Time (Source) Location / / Volume Laterality 08/22/2018 6:33 PM 9 6:37 FORWARDER OPERATOR PM FORWARDER OPERATOR Narrative PN SOFT - 08/22/2018 6:57 PM FORWARDER OPERATOR Performed at [place] [id number] CLIA number [id number] Shazia Hutchinson MD LAB_1 Performing Organization Address [facility] Phon e Number PN SOFT [address] [place] [address] (ABNORMAL) Basic Metabolic Panel (08/22/2018 6:33 PM FORWARDER OPERATOR) Analysis Performed At Patho logist Time Signature Creatinine 0.50 (L) 0.55 - PN SOFT Serum 1.02 mg/dL Lab Glucose 91 70 - 100 PN SOFT mg/dL Comment: The stated glucose range is for the fast ing state. Non-fasting glucose range is 70-180 mg/d L CO2 25 22 - 31 mmol/L PN SOFT Chloride 109 98 - 109 mmol/L PN SOFT Potassium 3.8 3.5 - 5.2 mmol/L PN SOFT Sodium 142 136 - 145 mmol/L PN SOFT Blood Urea Nitrogen 13 9 - 26 mg/dL PN SOFT Calcium 8.2 (L) 8.4 - 10.4 mg/dL PN SOFT Est GFR Am >60 >60 mL/min/1.73m2 PN SOFT Est GFR Non-Afr Am >60 >60 mL/min/1.73m2 PN SOFT Comment: Normal>60, moderate decrease 30 - 59, se anton decrease 15 - 29, renal failure <15 mL/min/1.73 m2 NOTE: ??Choose the eGFR result above reta ropriate for the race of the patient. Specimen Anatomical Collection Method Collection Time Receive d Time (Source) Location / / Volume Laterality 08/22/2018 6:33 PM 9 6:37 FORWARDER OPERATOR PM FORWARDER OPERATOR Narrative PN SOFT - 08/22/2018 6:57 PM FORWARDER [place]PER[place] [address] CLIA number [id number] Shazia Hutchinson MD LAB_1 Performing Organization Address [facility] Phon e Number PN SOFT [address] [place] [phone] (ABNORMAL) Hemoglobin (08/22/2018 6:33 PM FORWARDER OPERATOR) P athologist Signature Hemoglobin 8.0 (L) 11.8 - 15.5 PN SOFT g/dL Specimen Anatomical Collection Method Collection Time Receive d Time (Source) Location / / Volume Laterality 08/22/2018 6:33 PM 9 6:37 FORWARDER OPERATOR PM FORWARDER OPERATOR Narrative PN SOFT - 08/22/2018 6:41 PM FORWARDER OPERATOR Performed at [address] [address] CLIA number [id number] Shazia Hutchinson MD LAB_1 Performing Organization Address [facility] Phon e Number PN SOFT [address] [place] [address] (ABNORMAL) Complete Blood Count-No Diff (08/22/2018 6:11 AM FORWARDER OPERATOR) Patholo gist Method Time Signature White Blood Cell 7.1 3.8 - 11.0 PN SOFT Count k/cmm Red Blood Cell 2.76 (L) 3.70 - PN SOFT Count 5.20 m/cmm Hemoglobin 8.3 (L) 11.8 - PN SOFT 15.5 g/dL Hematocrit 26.2 (L) 35.0 - PN SOFT 46.0 % Mean Corpuscular 94.9 80.0 - PN SOFT Volume 100.0 fL RDW 14.0 11.0 - PN SOFT 15.0 % Platelet Count 178 140 - 450 PN SOFT k/cmm Specimen Anatomical Collection Method Collection Time Receive d Time (Source) Location / / Volume Laterality 08/22/2018 6:11 AM 9 6:14 FORWARDER OPERATOR AM FORWARDER OPERATOR Narrative PN SOFT - 08/22/2018 6:18 AM FORWARDER [place]PER[place] [address] CLIA number [id number] Shazia Hutchinson MD LAB_1 Performing Organization Address [facility] e Number PN SOFT [address] [place] [address] (ABNORMAL) Complete Blood Count-No Diff (08/21/2018 3:10 PM FORWARDER OPERATOR) [facility] Method Time Signature White Blood Cell 8.4 3.8 - 11.0 PN SOFT Count k/cmm Red Blood Cell 3.02 (L) 3.70 - PN SOFT Count 5.20 m/cmm Hemoglobin 9.2 (L) 11.8 - PN SOFT 15.5 g/dL Hematocrit 28.5 (L) 35.0 - PN SOFT 46.0 % Mean Corpuscular 94.4 80.0 - PN SOFT Volume 100.0 fL RDW 14.1 11.0 - PN SOFT 15.0 % Platelet Count 203 140 - 450 PN SOFT k/cmm Specimen Anatomical Collection Method Collection Time Receive d Time (Source) Location / / Volume Laterality 08/21/2018 3:10 PM 9 3:14 FORWARDER OPERATOR PM FORWARDER OPERATOR Narrative PN SOFT - 08/21/2018 3:20 PM FORWARDER OPERATOR Performed at [address] [address] CLIA number [id number] Shazia Hutchinson MD LAB_1 Performing Organization Address City/State/ZIP Code Phon e Number PN SOFT [address] [place] [address] Anion Gap (08/21/2018 6:59 AM FORWARDER OPERATOR) P athologist Signature ANION GAP 6 0 - 16 mEq/L PN SOFT Specimen Anatomical Collection Method Collection Time Receive d Time (Source) Location / / Volume Laterality 08/21/2018 6:59 AM 9 7:31 FORWARDER OPERATOR AM FORWARDER OPERATOR Narrative PN SOFT - 08/21/2018 8:02 AM FORWARDER OPERATOR Performed at [address] [address] CLIA number [id number] Shane Nñúez MD LAB_1 Performing Organization Address City/[facility]/ZIP Code Phon e Number PN SOFT [address] [place] [address] (ABNORMAL) Basic Metabolic Panel (08/21/2018 6:59 AM FORWARDER OPERATOR) Analysis Performed At Patho logist Time Signature Creatinine 0.51 (L) 0.55 - PN SOFT Serum 1.02 mg/dL Lab Glucose 121 (H) 70 - 100 PN SOFT mg/dL Comment: The stated glucose range is for the fast ing state. Non-fasting glucose range is 70-180 mg/d L CO2 25 22 - 31 mmol/L PN SOFT Chloride 108 98 - 109 mmol/L PN SOFT Potassium 3.9 3.5 - 5.2 mmol/L PN SOFT Sodium 139 136 - 145 mmol/L PN SOFT Blood Urea Nitrogen 17 9 - 26 mg/dL PN SOFT Calcium 7.3 (L) 8.4 - 10.4 mg/dL PN SOFT Est GFR Am >60 >60 mL/min/1.73m2 PN SOFT Est GFR Non-Afr Am >60 >60 mL/min/1.73m2 PN SOFT Comment: Normal>60, moderate decrease 30 - 59, se anton decrease 15 - 29, renal failure <15 mL/min/1.73 m2 NOTE: ??Choose the eGFR result above reta ropriate for the race of the patient. Specimen Anatomical Collection Method Collection Time Receive d Time (Source) Location / / Volume Laterality 08/21/2018 6:59 AM 9 7:31 FORWARDER OPERATOR AM FORWARDER OPERATOR Narrative PN SOFT - 08/21/2018 8:02 AM FORWARDER OPERATOR Performed at [address] [address] CLIA number [id number] Shane Núñez MD LAB_1 Performing Organization Address [facility] Phon e Number PN SOFT [address] [place] [address] [phone] (ABNORMAL) Urinalysis with Culture if Pos ([place]) (08/20/2018 1:24 PM FORWARDER OPERATOR) [facility] Method Time Signature Urine Type URINE:clean PN SOFT cat Turbidity Sl Cloudy Clear PN SOFT (A) Color Yellow PN SOFT U BILI Negative Negative PN SOFT Blood Urine Negative Neg - Trace PN SOFT Glucose, Negative Neg-30 PN SOFT Qualitative U mg/dL Ketones 20 mg/dl Negative PN SOFT mg/dL Leukocyte Negative Negative PN SOFT Esterase Urine Nitrite Urine Negative Negative PN SOFT pH Urine 8.0 5.0 - 8.0 PN SOFT Protein Urine Negative Neg - Trace PN SOFT mg/dL U Specific 1.010 1.005 - PN SOFT [place] 1.030 Urobilinogen Negative Negative PN SOFT Urine Eu/dL Urine WBC 1 0 - 9 /HPF PN SOFT Urine RBC 1 0 - 2 /HPF PN SOFT Amorphous Many (A) /HPF PN SOFT Crystals Specimen Anatomical Collection Method Collection Time Receive d Time (Source) Location / / Volume Laterality 08/20/2018 1:24 PM 9 1:26 FORWARDER OPERATOR PM FORWARDER OPERATOR Narrative PN SOFT - 08/20/2018 1:43 PM FORWARDER OPERATOR Performed at [address] [address] CLIA number [id number] Abdoulaye Lehman MD LAB_1 Performing Organization Address [facility] Phon e Number PN SOFT [address] [place] [address] CT Abd Pelvis WO IV Cont Stone (08/20/2018 1:04 PM FORWARDER OPERATOR) Anatomical Region Laterality Modality Abdomen, Pelvis Computed Tomography Specimen (Source) Anatomical Collection Method Collection Time Re ceived Time Location / / Volume Laterality 08/20/2018 12:56 PM FORWARDER OPERATOR Impressions 08/20/2018 1:37 PM FORWARDER OPERATOR IMPRESSION: ?? 1. Closed loop small bowel obstruction l ikely secondary to an internal hernia in the lower pelvis with findings worrisome for ischemia in the involved small bowel loops. The findings were called to Dr. Lehman at 1:30 PM on 08/20/2018. 2. There is also mild dilatation of smal l bowel loops mid abdomen proximal to the closed loop obstruction in the pelvis. There is focal probable mesenteric fluid adjacent to the more proximal small claribel l loops in the right midabdomen although some areas have a somewhat more nodular appearance and omental implants could not entirely be excluded. Narrative 08/20/2018 1:37 PM FORWARDER OPERATOR COMPARISON: ??None. TECHNIQUE: ??Images were obtained throug h the abdomen and pelvis without contrast using a renal stone protocol. FINDINGS: There is a closed loop small b owel obstruction likely secondary to an internal hernia in the lower pelvis. The loops of small bowel are thick walled with moderate adjacent mesenteric edema, wo rrisome for ischemia. No pneumatosis or free air. The involved loops are just proximal to the distal and terminal ileum which are decompressed. There is anterior displacement of the urinary bladder secondary to the internal hernia. There are also mildly dilated loops of s mall bowel in the midabdomen proximal to the internal hernia with some adjacent mesenteric edema in the right upper quadrant. However, some of the fluid in the ri ght mid abdomen has a somewhat more nodu lar appearance (images 58 and 60 of series 2) and omental implants are not excluded. The visualized lung bases are clear. The visualized distal esophagus is unremarkable. There is a 7 mm fat attenuation lesion in the dome of the liver compatible with lipoma. The patient is status post c holecystectomy. There are calcified gran ulomas in the spleen. The pancreas, adrenal glands and left kidney are unremarkable. There is a 1.5 cm probable cyst in the right mid kidney. No hydronephrosis or definite ureteral stone. The appendix, uterus and ovaries are not visualized. No definite adenopathy in the abdomen or pelvis. There are multilevel degenerative change s in the lumbar spine. No suspicious osseous lesions are identified. The visualized lung bases are clear. The visualized distal esophagus is unremarkable. Procedure Note Dhruv Carvajal MD - 08/20/2018 COMPARISON: None. TECHNIQUE: Images were obtained through the abdomen and pelvis without contrast using a renal stone protocol. FINDINGS: There is a closed loop small b owel obstruction likely secondary to an internal hernia in the lower pelvis. The loops of small bowel are thick walled with moderate adjacent mesenteric edema, worrisome for ischemia. No pneumatosis or free air. Th e involved loops are just proximal to the distal and terminal ileum which are decompressed. There is anterior displacement of the urinary bladder secondary to the internal hernia. There are also mildly dilated loops of s mall bowel in the midabdomen proximal to the internal hernia with some adjacent mesenteric edema in the right upper quadrant. However, some of the fluid in the right mid abdomen has a somewhat more nodular appearance ( images 58 and 60 of series 2) and omental implants are not excluded. The visualized lung bases are clear. The visualized distal esophagus is unremarkable. There is a 7 mm fat attenuation lesion in the dome of the liver compatible with lipoma. The patient is status post cholecystectomy. There are calcified granulomas in the sp mamadou. The pancreas, adrenal glands and left kidney are unremarkable. There is a 1.5 cm probable cyst in the right mid kidney. No hydronephrosis or definite ureteral stone. The appendix, uterus and ovaries are not vis ualized. No definite adenopathy in the abdomen or pelvis. There are multilevel degenerative change s in the lumbar spine. No suspicious osseous lesions are identified. The visualized lung bases are clear. The visualized distal esophagus is unremarkable. IMPRESSION IMPRESSION: 1. Closed loop small bowel obstruction l ikely secondary to an internal hernia in the lower pelvis with findings worrisome for ischemia in the involved small bowel loops. The findings were called to Dr. Lehman at 1:30 PM on 08/20/2018. 2. There is also mild dilatation of smal l bowel loops mid abdomen proximal to the closed loop obstruction in the pelvis. There is focal probable mesenteric fluid adjacent to the more proximal small bowel loops in the right midabdomen although some areas hav e a somewhat more nodular appearance and omental implants could not entirely be excluded. Abdoulaye Lehman MD RAD CT (ABNORMAL) Differential (08/20/2018 11:54 AM FORWARDER OPERATOR) [facility] Method Time Signature Absolute 8.2 (H) 1.8 - 8.0 PN SOFT Neutrophils k/cmm Absolute 0.9 (L) 1.1 - 4.0 PN SOFT Lymphocytes k/cmm Absolute 0.6 0.2 - 0.8 PN SOFT Monocytes k/cmm Absolute 0.0 0.0 - 0.5 PN SOFT Eosinophils k/cmm Absolute 0.0 0.0 - 0.2 PN SOFT Basophils k/cmm Immature 0.3 0.0 - 0.5 PN SOFT Granulocytes % Specimen Anatomical Collection Method Collection Time Receive d Time (Source) Location / / Volume Laterality 08/20/2018 11:54 08/20/2018 AM FORWARDER OPERATOR 12:00 PM FORWARDER OPERATOR Narrative PN SOFT - 08/20/2018 12:04 PM FORWARDER OPERATOR Performed at [address] [address] CLIA number [id number] Flash Mac MD LAB_1 Performing Organization Address [facility] Phon e Number SOFT [address] [place] [phone] Anion Gap (08/20/2018 11:54 AM FORWARDER OPERATOR) P athologist Signature ANION GAP 15 0 - 16 mEq/L PN SOFT Specimen Anatomical Collection Method Collection Time Receive d Time (Source) Location / / Volume Laterality 08/20/2018 11:54 08/20/2018 AM FORWARDER OPERATOR 12:00 PM FORWARDER OPERATOR Narrative PN SOFT - 08/20/2018 12:21 PM FORWARDER OPERATOR Performed at [address] [address] CLIA number [id number] Flash Mac MD LAB_1 Performing Organization Address [facility] Phon e Number PN SOFT [address] [place] [address] LIPASE (08/20/2018 11:54 AM FORWARDER OPERATOR) P athologist Signature Lipase 22 8 - 78 U/L PN SOFT Specimen Anatomical Collection Method Collection Time Receive d Time (Source) Location / / Volume Laterality 08/20/2018 11:54 08/20/2018 AM FORWARDER OPERATOR 12:00 PM FORWARDER OPERATOR Narrative PN SOFT - 08/20/2018 12:21 PM FORWARDER OPERATOR Performed at [address] [address] CLIA number [id number] Flash Mac MD LAB_1 Performing Organization Address [facility] Phon e Number PN SOFT [address] [place] [address] Emergency Center Draw And Hold (08/20/2018 11:54 AM FORWARDER OPERATOR) P athologist Signature Emergency Drawn PN SOFT Center Draw And Hold Extra Lavender Drawn PN SOFT Top Drawn Extra PST Top Drawn PN SOFT Drawn Extra SST Top Drawn PN SOFT Drawn Specimen Anatomical Collection Method Collection Time Receive d Time (Source) Location / / Volume Laterality 08/20/2018 11:54 08/20/2018 AM FORWARDER OPERATOR 12:00 PM FORWARDER OPERATOR Narrative PN SOFT - 08/20/2018 12:18 PM FORWARDER OPERATOR Performed at [address] [address] CLIA number [id number] Flash Mac MD LAB_1 Performing Organization Address [facility] Phon e Number PN SOFT [address] [place] [address] (ABNORMAL) Basic Metabolic Panel (08/20/2018 11:54 AM FORWARDER OPERATOR) Analysis Performed At Patho logist Time Signature Creatinine 0.54 (L) 0.55 - PN SOFT Serum 1.02 mg/dL Lab Glucose 144 (H) 70 - 100 PN SOFT mg/dL Comment: The stated glucose range is for the fast ing state. Non-fasting glucose range is 70-180 mg/d L CO2 24 22 - 31 mmol/L PN SOFT Chloride 103 98 - 109 mmol/L PN SOFT Potassium 3.6 3.5 - 5.2 mmol/L PN SOFT Sodium 142 136 - 145 mmol/L PN SOFT Blood Urea Nitrogen 22 9 - 26 mg/dL PN SOFT Calcium 9.6 8.4 - 10.4 mg/dL PN SOFT Est GFR Am >60 >60 mL/min/1.73m2 PN SOFT Est GFR Non-Afr Am >60 >60 mL/min/1.73m2 PN SOFT Comment: Normal>60, moderate decrease 30 - 59, se anton decrease 15 - 29, renal failure <15 mL/min/1.73 m2 NOTE: ??Choose the eGFR result above reta ropriate for the race of the patient. Specimen Anatomical Collection Method Collection Time Receive d Time (Source) Location / / Volume Laterality 08/20/2018 11:54 08/20/2018 AM FORWARDER OPERATOR 12:00 PM FORWARDER OPERATOR Narrative PN SOFT - 08/20/2018 12:21 PM FORWARDER OPERATOR Performed at [facility], [address] [place] [id number] CLIA number [id number] Flash Mac MD LAB_1 Performing Organization Address [facility] Phon e Number PN SOFT [address] [place] [address] Complete Blood Count-W/Diff (08/20/2018 11:54 AM FORWARDER OPERATOR) athologist Signature White Blood Cell 9.7 3.8 - 11.0 PN SOFT Count k/cmm Red Blood Cell 4.51 3.70 - PN SOFT Count 5.20 m/cmm Hemoglobin 13.6 11.8 - PN SOFT 15.5 g/dL Hematocrit 41.2 35.0 - PN SOFT 46.0 % Mean Corpuscular 91.4 80.0 - PN SOFT Volume 100.0 fL RDW 13.6 11.0 - PN SOFT 15.0 % Platelet Count 271 140 - 450 PN SOFT k/cmm Specimen Anatomical Collection Method Collection Time Receive d Time (Source) Location / / Volume Laterality 08/20/2018 11:54 08/20/2018 AM FORWARDER OPERATOR 12:00 PM FORWARDER OPERATOR Narrative PN SOFT - 08/20/2018 12:04 PM FORWARDER OPERATOR Performed at [address] [address] CLIA number [id number] Flash Mac MD LAB_1 Performing Organization Address [facility] Phon e Number PN SOFT [address] [place] [address] Pathology Report (08/20/2018 6:00 AM FORWARDER OPERATOR) [facility] gist Method Time Signature Path: FINAL SURGICAL PATHOLOGY REPORT PN SOFT Pathology #: [id number] ? Date Obtained: 08/20/2018 ?Date Received: 08/21/2018 DIAGNOSIS: Terminal ileum and cecum, segmental resection: ??- Small bowel transmural ischemic necrosis. ??- Viable surgical margins. ??- Negative for dysplasia or malignancy. ?Anthony ADAMS D ? (electronic signatur e) ? 08/24/2018 ??12:5 3 CLINICAL NOTES: Small bowel obstruction GROSS DESCRIPTION: The specimen is received fresh labeled ileum and cecum an d consists ?? of a portion of cecum measuring 8.5 cm in length by 6.5 cm in ?? diameter and a segment of small bowel measuring 98.5 cm in length by ?? 3 cm in diameter. ??The serosa on the small bowel has a dusky ?? purple-red coloration. The bowel is opened to reveal dark red-purple, slightly fla ttened ?? mucosa starting from 2.5 cm from the proximal margin to 8 cm from ?? the ileocecal valve. ??The remainder of the small bowel mucosa is ?? ling-pink and grossly unremarkable. ??No lesions or jett s are grossly ?? identified. ??No strictures are identified. The colonic mucosa is ?? ling-pink and grossly unremarkable. ??No appendix is iden tified ?? grossly. ??Global Human Resources Director sections [facility] Summary of sections: A1 proximal and distal resection nolan ns; A2-4 ?? small bowel from proximal to distal; A5 ileocecal valve; A6 ?? mesentery. ? SMD MICROSCOPIC DESCRIPTION: The microscopic examination has been performed. Performed at [facility], [address] [facility], [place] [address] Specimen Anatomical Collection Method Collection Time Receive d Time (Source) Location / / Volume Laterality COLON STRUCTURE / 08/20/2018 6:00 AM 10/2018 6:00 Unknown FORWARDER OPERATOR AM FORWARDER OPERATOR Shazia Hutchinson MD LAB_1 Performing Organization Address City/State/ZIP Code [facility] e Number PN SOFT [address] [place] [address] documented in this encounter Visit Diagnoses Diagnosis SBO (small bowel obstruction) (HRC) - Pr imary Unspecified intestinal obstruction Small bowel obstruction (HRC) Unspecified intestinal obstruction Triage Assessment Note - Eleazar Roland RN - 08/20/2018 11:26 AM FORWARDER OPERATOR Presents reporting worsening generalized abdomina pain radiating to the back. Denies any N/V/D. LastBM_ Normal this morning. ARDER OPERATOR documented in this encounter Admitting Diagnoses Diagnosis SBO (small bowel obstruction) (HRC) Unspecified intestinal obstruction documented in this encounter Administered Medications Inactive Administered Medications - up to 3 most recent administrations Medication Order MAR Action Action Date Dose Rate Site 0.9% sodium chloride bolus 500 mL Started 08/20/2018 12:15 PM FORWARDER OPERATOR 500 mL 500 mL, Intravenous, Administer over 0.6 Hours, ONCE, On Diamond 08/20/18 at 1230, For 1 dose acetaminophen (OFIRMEV) 1,000 mg infusion Started 2018 4:15 AM FORWARDER OPERATOR 1,000 mg 100 mL 1,000 mg, Intravenous, Administer over 15 Minutes, Q8H, First dose on Fri08/21/18 at 0330, For 4 doses acetaminophen (OFIRMEV) 1,000 mg infusion Started 2018 5:35 AM FORWARDER OPERATOR 1,000 mg 100 mL 1,000 mg, Intravenous, Administer over 15 Minutes, Q8H (NON-STND), First dose (after last reorder) on Fri08/21/18 at 1245, For 3 doses Started 08/21/2018 9:00 PM FORWARDER OPERATOR 1,000 mg Started 08/21/2018 12:29 PM FORWARDER OPERATOR 1,000 mg acetaminophen (OFIRMEV) 1,000 mg infusion Started 2018 7:49 AM FORWARDER OPERATOR 1,000 mg 100 mL 1,000 mg, Intravenous, Administer over 15 Minutes, Q6H (NON-STND), First dose on 08/22/18 at 1400, For 4 doses Started 08/22/2018 8:25 PM FORWARDER OPERATOR 1,000 mg Started 08/22/2018 2:20 PM FORWARDER OPERATOR 1,000 mg acetaminophen (OFIRMEV) 1,000 mg infusion Started 2018 1:49 PM FORWARDER OPERATOR 1,000 mg 100 mL 1,000 mg, Intravenous, Administer over 15 Minutes, Q6H (NON-STND), First dose (after last reorder) on 08/23/18 at 1300, For 1 dose acetaminophen (OFIRMEV) 1,000 mg infusion Started 2018 3:15 AM FORWARDER OPERATOR 1,000 mg 100 mL 1,000 mg, Intravenous, Administer over 15 Minutes, Q6H (NON-STND), First dose on 08/23/18 at 2000, For 2 doses Started 08/23/2018 9:26 PM FORWARDER OPERATOR 1,000 mg acetaminophen (TYLENOL) tablet 1,000 mg Given 08/27/2018 10:19 AM FORWARDER OPERATOR 1,000 mg 1,000 mg, Oral, Q8H, First dose on Fri08/26/18 at 0700, Until Discontinued Given 08/27/2018 2:06 AM FORWARDER OPERATOR 1,000 mg Given 08/26/2018 4:03 PM FORWARDER OPERATOR 1,000 mg amLODIPine (NORVASC) tablet 10 mg Given 08/27/2018 8:02 AM FORWARDER OPERATOR 10 mg 10 mg, Oral, DAILY, First dose on Fri08/24/18 at 0800, Until Discontinued, OP SIG:Take 10 mg by mouth daily. Given 08/26/2018 7:55 AM FORWARDER OPERATOR 10 mg Given 08/25/2018 8:56 AM FORWARDER OPERATOR 10 mg benzocaine-menthol (CEPACOL) lozenge 1 Given 08/23/2018 10:10 AM FORWARDER OPERATOR 1 Lozenge Lozenge 1 Lozenge, Oral, Q2H PRN, Throat Pain, Starting on Fri08/21/18 at 1045, Until Diamond 08/27/18 at 1403 Given 08/23/2018 8:05 AM FORWARDER OPERATOR 1 Lozenge Given 08/21/2018 3:21 PM FORWARDER OPERATOR 1 Lozenge dextrose 5%-NaCl 0.45%-KCl 20 New Bag Started 08/26/2018 1:34 AM FORWARDER OPERATOR 75 mL/hr mEq/liter infusion Intravenous, at 75 mL/hr, CONTINUOUS, Starting on 08/24/18 at 0715 Started 08/25/2018 12:50 PM FORWARDER OPERATOR 75 mL/hr Rate/Dose Change 08/25/2018 12:32 PM FORWARDER OPERATOR 75 mL/hr enoxaparin (LOVENOX) injection Given 08/21/2018 9:00 PM FORWARDER OPERATOR 30 m g Abdominal Tissue 30 mg 30 mg, Subcutaneous, Q12H (NON-STND), First dose on Fri08/21/18 at 2100, Until Discontinued enoxaparin (LOVENOX) injection Given 08/26/2018 8:16 PM FORWARDER OPERATOR 40 m g Abdominal Tissue 40 mg 40 mg, Subcutaneous, Q24H, First dose (after last modification) on Fri08/22/18 at 2000, Until Discontinued Given 08/25/2018 8:04 PM FORWARDER OPERATOR 40 mg Abdom inal Tissue Given 08/24/2018 8:24 PM FORWARDER OPERATOR 40 mg Abdom inal Tissue fentaNYL (SUBLIMAZE) injection 25-100 mc g Given 08/20/2018 3:35 PM FORWARDER OPERATOR 25 mcg 25-100 mcg, Intravenous, [id number], Pain, Sedation, Procedure, Severe Pain (pain score 8-10), Starting on Diamond 08/20/18 at 1503, Until Diamond 08/20/18 at 2128, Notify Anesthesiologist if total cumulative dose in excess of 250 mcg., Pre-op Given 08/20/2018 3:26 PM FORWARDER OPERATOR 25 mcg fentaNYL (SUBLIMAZE) injection 25-50 mcg Given 08/20/2018 8:30 PM FORWARDER OPERATOR 50 mcg 25-50 mcg, Intravenous, [id number], Other, Moderate to Severe Pain (pain score 5 and above) in the immediate postop period when faster on-set, short acting agent is desired., Starting on Diamond 08/20/18 at 1503, Until Diamond 08/20/18 at 2128, Administer every 5 minutes as needed, to a maximum cumulative dose of 250 mcg. For patients with a regional, spinal, or local anesthetic, may give for anticipated pain as the anesthetic wears off., PACU/Recovery Given 08/20/2018 8:20 PM FORWARDER OPERATOR 50 mcg FLUoxetine (PROZAC) capsule 60 mg Given 08/27/2018 8:01 AM FORWARDER OPERATOR 60 mg 60 mg, Oral, DAILY, First dose on Fri08/23/18 at 1830, Until Discontinued, Indications: Obsessive Compulsive Disorder Given 08/26/2018 7:55 AM FORWARDER OPERATOR 60 mg Given 08/25/2018 8:55 AM FORWARDER OPERATOR 60 mg gentamicin 90 mg in sodium chloride 0.9 % Started 08/20/2018 4:10 PM FORWARDER OPERATOR 90 mg 100 mL IVPB 90 mg, Intravenous, Administer over 60 Minutes, ONCE, On Diamond 08/20/18 at 1515, For 1 dose, Give within 60 minutes prior to incision; No intraoperative re-dosing needed. Pharmacy to calculate dose based on dosing body weight and to adjust dose to 3mg/kg for impaired renal function., Pre-Op Signed and Held hydrocortisone 2.5 % cream Given 08/26/2018 10:07 PM FORWARDER OPERATOR Back Topical, TID PRN, Rash, Itching, Starting on Fri08/25/18 at 1131, Apply topically to rash on back. Hazardous waste disposal required. Given 08/25/2018 10:02 PM FORWARDER OPERATOR Back Given 08/25/2018 12:56 PM FORWARDER OPERATOR Othe r (Comment) HYDROmorphone (aka DILAUDID) New Syringe/Cassette 08/25/2018 11:11 AM FORWARDER OPERATOR 0.2mg/ml in NaCl 0.9% 100mL CADD cassette Intravenous, CONTINUOUS, Starting on Diamond 08/20/18 at 2045, BASAL RATE: CONTINUOUS RATE IS NOT RECOMMENDED FOR OPIOID NA? VE PATIENTS DEMAND BOLUS DOSE: 0.1-0.2 mg FREQUENCY: Every 10 Minutes MAX # OF BOLUS DOSES/HOUR: 6. Do NOT give additional opioid orders unless requested by provider. Rate/Dose Verify 08/25/2018 7:43 AM FORWARDER OPERATOR Rate/Dose Verify 08/24/2018 11:29 PM FORWARDER OPERATOR HYDROmorphone (DILAUDID) tablet 2-4 mg Given 08/27/2018 11:26 AM FORWARDER OPERATOR 2 mg 2-4 mg, Oral, Q4H PRN, Pain, Starting on Fri08/26/18 at 0726, Until Diamond 08/27/18 at 1403 Given 08/27/2018 6:52 AM FORWARDER OPERATOR 2 mg Given 08/27/2018 2:06 AM FORWARDER OPERATOR 2 mg HYDROmorphone injectable 0.2-0.4 mg Given 08/20/2018 8:30 PM FORWARDER OPERATOR 0.2 mg 0.2-0.4 mg, Intravenous, Q10MIN PRN, Other, : Moderate to Severe Pain (pain score 5 and above) in the immediate postop period when longer acting agent is desired., Starting on Diamond 08/20/18 at 1503, Until Diamond 08/20/18 at 2128, Maximum cumulative dose is 2 mg. For patients with a regional, spinal, or local anesthetic, may give for anticipated pain as the anesthetic wears off., PACU/Recovery Given 08/20/2018 8:20 PM FORWARDER OPERATOR 0.3 mg HYDROmorphone injectable 0.5 mg Given 08/20/2018 12:48 PM FORWARDER OPERATOR 0.5 mg 0.5 mg, Intravenous, Q15MIN PRN, Pain, Moderate to severe, Starting on Diamond 08/20/18 at 1201, Until Diamond 08/20/18 at 1248, For 2 doses, Maximum dose of 1 mg Given 08/20/2018 12:15 PM FORWARDER OPERATOR 0.5 mg HYDROmorphone injectable 0.5 mg Given 08/20/2018 1:26 PM FORWARDER OPERATOR 0.5 mg 0.5 mg, Intravenous, PRN, Pain, Severe Pain (pain score 8-10), Starting on Diamond 08/20/18 at 1325, Until Diamond 08/20/18 at 1407, For 3 hours HYDROmorphone injectable 0.5 mg Given 08/20/2018 2:14 PM FORWARDER OPERATOR 0.5 mg 0.5 mg, Intravenous, Q15MIN PRN, Pain, Moderate to severe, Starting on Diamond 08/20/18 at 1405, Until Fri08/24/18 at 0647, For 2 doses, Maximum dose of 1 mg labetalol (NORMODYNE) injection 5-10 mg Given 08/25/2018 2:41 AM FORWARDER OPERATOR 10 mg 5-10 mg, Intravenous, Q6H PRN, Blood Pressure >, SBP >150, Starting on Fri08/24/18 at 0647, Until Diamond 08/27/18 at 0654, Give over 1 to 2 minutes Given 08/24/2018 9:00 AM FORWARDER OPERATOR 10 mg lactated ringers infusion Started 08/20/2018 8:07 PM FORWARDER OPERATOR 25 mL/hr, Intravenous, CONTINUOUS, Starting on Diamond 08/20/18 at 1515, Administer on all preop surgery patients, ages 12 and older, unless specified differently in the Protocol for Preop Initiation of IV fluids Order Set., Pre-op Started 08/20/2018 6:31 PM FORWARDER OPERATOR Restarted 08/20/2018 5:49 PM FORWARDER OPERATOR levothyroxine (SYNTHROID) 0.175 mg in Given 08/24/2018 9:[address] 0.175 mg sodium chloride 0.9 % 4.375 mL syringe 0.175 mg, Intravenous, DAILY AT 10 AM, First dose on Fri08/21/18 at 1000 Given 08/23/2018 10:09 AM FORWARDER OPERATOR 0.175 mg Given 08/22/2018 9:43 AM FORWARDER OPERATOR 0.175 mg levothyroxine (SYNTHROID) tablet 175 mcg Given 08/26/2018 8:16 PM FORWARDER OPERATOR 175 mcg 175 mcg, Oral, DAILY AT 0600, First dose (after last modification) on Fri08/25/18 at 1300, Until Discontinued, Take on an empty stomach, one hour before meals or two hours after. Given 08/25/2018 8:04 PM FORWARDER OPERATOR 175 mcg losartan-hydrochlorothiazide (HYZAAR) Given 08/27/2018 8:[address] 1 Tablet 50-12.5 MG per tablet 1 Tablet 1 Tablet, Oral, DAILY, First dose on Fri08/24/18 at 0800, Until Discontinued Given 08/26/2018 7:55 AM FORWARDER OPERATOR 1 Tablet Given 08/25/2018 8:56 AM FORWARDER OPERATOR 1 Tablet omeprazole (PriLOSEC) delayed release capsule Given 8:01 AM FORWARDER OPERATOR 20 mg 20 mg 20 mg, Oral, DAILY, First dose on Fri08/26/18 at 0800, Until Discontinued, Capsule should be swallowed whole. Best when taken before a meal, but may be given with food. Given 08/26/2018 7:55 AM FORWARDER OPERATOR 20 mg ondansetron (ZOFRAN) 4 MG/2ML injection - ADS Override Pull Starting on Fri08/20/18 at 1541, Until Fri08/20/18 at 16 00, For 1 dose, Gladys Larson : cabinet override ondansetron (ZOFRAN) injection 4 mg Given 08/20/2018 12:15 PM FORWARDER OPERATOR 4 mg 4 mg, Intravenous, ONCE, On Fri08/20/18 at 1230, For 1 dose, For nausea or vomiting ondansetron (ZOFRAN) injection 4 mg Given 08/20/2018 4:00 PM FORWARDER OPERATOR 4 mg 4 mg, Intravenous, Q4H PRN, Nausea, Vomiting, Starting on Fri08/20/18 at 1503, Until Fri08/20/18 at 2128, If multiple medications are ordered for nausea or vomiting - administer in the following priority based on medications ordered, effectiveness and availability: ondansetron (ZOFRAN) > prochlorPERAZINE (COMPAZINE) > diphenhydrAMINE (BENADRYL) > hydrOXYzine HCl (VISTARIL)> ePHEDrine > scopolamine (TRANSDERM-SCOP)., PACU/Recovery oxyCODONE (ROXICODONE) immediate release Given 08/25/2018 10:02 PM FORWARDER OPERATOR 10 mg tablet 5-10 mg 5-10 mg, Oral, Q4H PRN, Pain, severe pain and able to take po, Starting on Fri08/25/18 at 1825, Until Fri08/26/18 at 0727 pantoprazole (PROTONIX IV) 40 mg in sodium Given 08/25/2018 9:16 AM FORWARDER OPERATOR 40 mg chloride 0.9% 10 mL IV syringe 40 mg, Intravenous, Administer over 2 Minutes, Q24H, First dose on Fri08/23/18 at 1000, Administer over a period of at least 2 minutes Given 08/24/2018 9:24 AM FORWARDER OPERATOR 40 mg Given 08/23/2018 10:55 AM FORWARDER OPERATOR 40 mg phenol (CHLORASEPTIC) throat spray 5 Spr ay Given 08/22/2018 1:00 PM FORWARDER OPERATOR [address], Oral, Q2H PRN, Throat Pain, Starting on Fri08/21/18 at 1045, Hazardous waste disposal required. Given 08/21/2018 12:05 PM FORWARDER OPERATOR 5 Sprays scopolamine (TRANSDERM-SCOP) Patch Applied 08/20/2018 4:00 PM FORWARDER OPERATOR 1 P atch Right Ear 1.0mg/3 days 1 Patch 1 Patch, Transdermal, Q72H, First dose on Fri08/20/18 at 1600, Until Discontinued, Apply behind the ear, Pre-op sodium chloride 0.9% 0.9 % injection - ADS Given 08/20/2018 1:30 PM FORWARDER OPERATOR Override Pull Starting on Fri08/20/18 at 1323, Until Fri08/20/18 at 1330, For 1 dose, Shirley Deal : nallely override sodium chloride 0.9% infusion Started 08/23/2018 10:00 PM FORWARDER OPERATOR 125 mL/hr Intravenous, at 125 mL/hr, CONTINUOUS, Starting on Diamond 08/20/18 at 2045, Post-op New Bag Started 08/23/2018 4:37 PM FORWARDER OPERATOR 125 mL/hr New Bag Started 08/23/2018 8:05 AM FORWARDER OPERATOR 125 mL/hr documented in this encounter Active and Recently Administered Medications Times are shown in FORWARDER OPERATOR. Scheduled Medication Order 08/25/2018 08/26/2018 08/27/2018 acetaminophen (TYLENOL) tablet 1,000 mg 0655 (Given - Provider: Etelvina Hunt RN)1603 (Given - Provider: Erica Caraballo RN) 0206 (Given - Provider: Azul Soto, LORI)1019 (Given - Provider: Nell Irving RN) 1,000 mg, Oral, Q8H, First dose on Fri08/26/18 at 0700 amLODIPine (NORVASC) tablet 10 mg 0856 (Given - Provider: Me charito Anaya RN) 0755 (Given - Provider: Dayron Sandoval RN) 0802 (Given - Provider: Erica Caraballo, LORI) 10 mg, Oral, DAILY, First dose on 08/24/18 at 0800, OP SIG:Take 10 mg by mouth daily. enoxaparin (LOVENOX) injection 40 mg 2003 (Given - Pro vider: Etelvina Hunt RN) 2015 (Given - Provider: Azul Soto, LORI) 40 mg, Subcutaneous, Q24H, First dose on 08/22/18 at 2000 FLUoxetine (PROZAC) capsule 60 mg 0855 (Given - Provider: Me charito Anaya RN) 0755 (Given - Provider: Dayron Sandoval RN) 0801 (Given - Provider: Erica Caraballo RN) 60 mg, Oral, DAILY, First dose on 08/23/18 at 1830, Indications: Obsessive Compulsive Disorder levothyroxine (SYNTHROID) tablet 175 mcg 2003 (Given - Provider: Etelvina Hunt RN) 2015 (Given - Provider: Azul Soto RN) 175 mcg, Oral, DAILY AT 0600, First dose on Fri08/25/18 at 1300, Take on an empty stomach, one hour before meals or two hours after. losartan-hydrochlorothiazide (HYZAAR) 50-12.5 MG per t ablet 1 Tablet 0856 (Given - Provider: Mckenzie Anaya, LORI) 0755 (Given - Provider: Dayron Sandoval, LORI) 0801 (Given - Provider: Erica Caraballo RN) 1 Tablet, Oral, DAILY, First dose on Fri08/24/18 at 0800 NO post-op antibiotics needed 2145 (Noted - Provider: Mee Hunt, LORI) 2145 (Noted - Provider: Azul Soto RN) Q24H, First dose on Fri08/20/18 at 2145, Post-op omeprazole (PriLOSEC) delayed release capsule 20 mg 0755 (Given - Provider: Dayron Sandoval RN) 0801 (Given - Provider: Erica morales RN) 20 mg, Oral, DAILY, First dose on 05/06 at 0800, Capsule should be swallowed whole. Best when taken before a meal, but may be given with food. pantoprazole (PROTONIX IV) 40 mg in sodi um chloride 0.9% 10 mL IV syringe (CANCELED) 0916 (Given - Provider: Mckenzie Anaya RN) 40 mg, Intravenous, Administer over 2 Mi nutes, Q24H, First dose on Fri08/23/18 at 1000, Administer over a period of at least 2 minutes Continuous Medication Order 08/25/2018 08/26/2018 08/27/2018 dextrose 5%-NaCl 0.45%-KCl 20 mEq/liter infusion (CANC ELED) 1232 (Rate/Dose Change - Provider: Mckenzie Anaya RN)1250 (Started - Provider: Mckenzie Anaya RN) 0134 (New Bag Started - Provider: Etelvina Hunt, LORI) Intravenous, at 75 mL/hr, CONTINUOUS, Starting Fri08/24/18 at 071 5 HYDROmorphone (aka DILAUDID) 0.2mg/ml in NaCl 0.9% 100mL CADD cassette (CANCELED) 0743 (Rate/Dose Verify - Provider: Mckenzie Anaya RN)1111 (New Syringe/Cassette - Provider: Mckenzie Anaya RN - Comment: 0.2 bolus onlyq 10 minmax/hr)1836 (Stopped - Provider: Mckenzie Anaya RN) Intravenous, CONTINUOUS, Starting Diamond 08/20/18 at 2045, BASAL RATE: CONTINUOUS RATE IS NOT RECOMMENDED FOR OPIOID NA? VE PATIENTS DEMAND BOLUS DOSE: 0.1-0.2 mg FREQUENCY: Every 10 Minutes MAX # OF BOLUS D OSES/HOUR: 6. Do NOT give additional opi oid orders unless requested by provider. PRN Medication Order 08/25/2018 08/26/2018 08/27/2018 benzocaine-menthol (CEPACOL) lozenge 1 Lozenge 1 Lozenge, Oral, Q2H PRN, Throat Pain, Starting 08/21/18 at 10 45 hydrocortisone 2.5 % cream 1256 (Given - Provider: Janna Anaya RN - Comment: applied to back)220 (Given - Provider: Etelvina Hunt RN) 2207 (Given - Provider: Azul Soto, LORI) Topical, TID PRN, Rash, Itching, Startin g 08/25/18 at 1131, Apply topically to rash on back. Hazardous waste disposal required. HYDROmorphone (DILAUDID) tablet 2-4 mg 1 354 (Given - Provider: Dayron Sandoval RN)1803 (Given - Provider: Erica Caraballo RN)2206 (Given - Provider: Azul Soto, LORI) 0206 (Given - Provider: Azul Soto, LORI) 0652 (Given - Provider: Azul Soto, LORI)1126 (Given - Provider: Erica Caraballo RN) 2-4 mg, Oral, Q4H PRN, Pain, Starting 08/26/18 at 0726 labetalol (NORMODYNE) injection 5-10 mg (CANCELED) 024 1 (Given - Provider: Holli Salgado RN) 5-10 mg, Intravenous, Q6H PRN, Blood Pre ssure >, SBP >150, Starting 08/24/18 at 0647, Give over 1 to 2 minutes oxyCODONE (ROXICODONE) immediate release tablet 5-10 m g (CANCELED) 2202 (Given - Provider: Etelvina Hunt RN) 5-10 mg, Oral, Q4H PRN, Pain, severe stephani n and able to take po, Starting 08/25/18 at 1825 phenol (CHLORASEPTIC) throat spray [address], Oral, Q2H PRN, Throat Pain, Sta rting 08/21/18 at 1045, Hazardous waste disposal required. documented in this encounter Care Teams Diesel Roller Operator Relationship Specialty Start Date End Date Vanessa Mills MD PCP - General 04/03/[address] [place] [id number] documented as of this encounter
--- OUTSIDE RECORDS SUMMARY | 2022-04-16 19:44 | XMS_ITS | Encounter Summary ---
:1955 Author Organization [facility] Address [address] [address] Care Team Providers Name Role Phone Vanessa Mills MD Primary Care Provider Reason for Visit Auth/Cert Specialty Diagnoses / Procedures Referred By Contact Refer red To Contact Diagnoses Small bowel obstruction (HRC) SBO (small bowel obstruction) (HRC) SBO (small bowel obstruction) (HRC) Small bowel obstruction (HRC) SBO (small bowel obstruction) (HRC) Small bowel obstruction (HRC) Referral ID Status Reason Start Date Expiration Date Visits Requ ested Visits Authorized [id number] 1 1 Encounter Details Date Type Department Care Team Description 08/20/2018 Anesthesia Event Sabian[employer] Operating Clifford Reaves MD [address] [place] [address] Xochilt Knapp MD [address] [place] [address] [address] [facility] [place] [address] Anesthesia Record Procedure Summary Procedure Name Responsible Anesthesia Start Anesthesia Stop Anesthesiologist Time Time DIAGNOSTIC Carloz Reaves MD 08/20/18 1618 08/20/18 201 8 LAPAROSCOPY CONVERTED TO EXPLORATORY LAPAROTOMY, ILEO COLIC RESCTION WITH LYSIS OF ADHESIONS Events Date Time Event Comment 08/20/2018 1555 1618 An Start 1624 An Start Data 1624 MD/DO Present 1629 An Induction 1629 MD/DO Present 1630 An Intubation 1640 MD/DO Present 1714 MD/DO Present 1854 MD/DO Present 2004 MD/DO Present 2005 An Extubation Purposeful movem ent with spontaneous respirations and adequate air exchange. Suctioned and ETT removed. Transfe rred with oxygen to recovery. 2008 an stop data 2018 An Stop Care transferred . 2018 Care Handoff Note I discussed wi th the receiving nurse and we: 1) Identified the p atient, monahan family member(s) or patient surrogat e 2) Identified the responsible practitioner 3) Reviewed the pertinent medical history 4) Discu ssed the surgical/procedure course 5) Reviewed intr a-op anesthesia management and issues during an esthesia 6) Set expectations for the post-procedu re period 7) Allowed opportunity for questions an d acknowledgement of understanding of report Electr onically signed by Khadra Edward APRN, MELQUIADES Name Total midazolam injection 2 mg/2 mL (VERSED) 2 mg midazolam (VERSED) injection 1-2 mg 2 mg fentaNYL injection (SUBLIMAZE) 450 mcg HYDROmorphone injection 1 mg/mL (DILAUDID) 1 mg lidocaine 1% PF injection (XYLOCAINE) 50 mg propofol 10 mg/mL IV (DIPRIVAN) 200 mg succinylcholine injection (QUELICIN) 160 mg rocuronium injection (ZEMURON) 130 mg ondansetron injection (ZOFRAN) 4 mg dexamethasone 4 mg/mL injection (DECADRON) 4 mg ePHEDrine 25 mg prediluted syringe 25 mg clindamycin in dextrose 5% (CLEOCIN) IVPB 900 mg 900 m g gentamicin 90 mg in sodium chloride 0.9 % 100 mL IVPB 0 mg acetaminophen infusion 10 mg/mL (OFIRMEV) 1,000 mg sugammadex injection 100mg/mL (BRIDION) 163.2 mg lactated ringers infusion 2,000 mL hetastarch 6%-NaCl 0.9% infusion (HeSPAN) 500 mL Agents Name O2 Air Sevoflurane () Identified Agent Name Blood No blood administrations on file. Lines, Drains, and Airways Type Details Placement Removal NG/OG Tube Performed By: MELQUIADES; 08/20/18 1938 by 08/24/18 12 00 by Ernestine, Tube Type: Radha Cruz RN Nasogastric; Tube Location: Right nare; Removal Date: 08/24/18; Removal Time: 1200; Removal Reason: No Longer Needed Incision/Surgical Site 08/20/18; #1; No; 08/20/18 0000 by 1203 by Lit, Abdomen; Reese, Aaliyah, Angeles E, Discontinu e Lower; 09/10/18; 1203 RN Peripheral IV Placement Date: 08/20/18 1214 by 08/21/18 1850 b y Carmelo, 08/20/18; Placement Shirley Deal RN Sarah E, RN Time: 1214; Pre-existing: No; Inserted by?: RN; Size (Gauge): 20 G; Orientation: Right; Site Prep: Chlorhexidine; Local Anesthetic: None; Insertion attempts: 1; Blood draw with insertion?: no; Patient Tolerance: Tolerated well; Met Standard Sterile Barrier Technique: Met Standard Sterile Barrier Technique; Removal Date: 08/21/18; Removal Time: 185 ETT Placement Date: 08/20/18 1630 by 08/20/182007 b siena Asim 08/20/18; Placement Minnie Clay H eather R, Time: 163; Placed Khadra Mariscal APRN, APRN, CRNA By: RENTAL CAR DELIVERER; Induction RENTAL CAR DELIVERER Type: IV; Masking: Easy; ETT Type: ETT; Size (mm): 7.0; Depth Secured (cm): 22 cm; Cuffed: Cuffed; Intubation Method: DL; Cormack_Lehane Glottic Grade: Grade 1; Glottic View: Cords Open, Cords Clear; Blade: MAC; Blade Size: 3; Insertion attempts: 1; Difficulty: Atraumatic; Adjunct Equipment: Stylet; Placement Verification: BBSE, Positive EtCO2, auscultation; Teeth and Lips Unchanged: Unchanged; Removal Date: 08/20/18; Removal Time: 2007 Peripheral IV Placement Date: 08/20/18 1642 by 08/26/182058 b y 08/20/18; Placement Brittany Clay Ann C , RN Time: 1641; Inserted Khadra Mariscal APRN, by?: RENTAL CAR DELIVERER; Size RENTAL CAR DELIVERER (Gauge): 18 G; Orientation: Left; Site Prep: Alcohol; Local Anesthetic: None; Insertion attempts: 1; Blood draw with insertion?: no; Patient Tolerance: Tolerated well; Met Standard Sterile Barrier Technique: Met Standard Sterile Barrier Technique; Removal Date: 08/26/18; Removal Time: 2058 (unknown time, removed by previous shift); Removal Reason: Other (Comment) (fell out in shower per pt); Catheter Tip: (unknown - removed by previous shift) NG/OG Tube Placement Date: 08/20/181643 by 08/21/18 0205 b y 08/20/18; Placement Sallie Clay Daud a Gasimu, Time: 1643; Performed Khadra Mariscal APRN, RN By: MELQUIADES; Tube Type: RENTAL CAR DELIVERER Orogastric; Removal Date: 08/21/18 (patient was not admitted with tube.); Removal Time: 204; Removal Reason: No Longer Needed Indwelling Urethral 08/20/18; 1703; No; 08/20/18 1703 by 9 1400 by Catheter Kelly May; Kelly May Greenhage n, Michelle, Indwelling Catheter; RN RN 16 Fr.; 1 documented in this encounter Social History Tobacco Use Types Packs/Day Years [...] on file documented as of this encounter Miscellaneous Notes Anesthesia Postprocedure Evaluation - Carloz Reaves MD - 08/20/2018 9:45 PM CST [facility] Anesthesia Post-op Note Patient: Valeri Keenan Post-Op Diagnosis: Sbo (small bowel obstruction) (hrc) Procedure Performed: Procedure(s): DIAGNOSTIC LAPAROSCOPY CONVERTED TO EXPLORATORY LAPAROTOMY, ILEO COLIC RESCTION WITH LYSIS OF ADHESIONS Anesthesia Type: General Post-op vital signs: BP (!) 142/71 Pulse 82 Temp 36.7 ??C (98.1 ??F) (Temporal Artery) Resp 19 Ht 5' 5 Wt 81.6 kg (180 lb) SpO2 99% BMI 29.95 kg/m?? Pain Score: Presence Of Pain: complains of pain/discomfort Preferred Pain Scale: word (verbal ratingpain scale) Pain Rating (0-10): Rest: acceptable Post-op assessment: No anesthesia complication. Patient location: PACU Airway Status: Patent Cardiovascular function: Satisfactory Hydration status: Satisfactory PONV: None Level of Consciousness: Awake Fully Participates Postop Assessment: Patient tolerated procedure well. Electronically signed by: Carloz Reaves MD 08/20/2018 9:[address]IONER Anesthesia Preprocedure Evaluation - Carloz Reaves MD - 08/20/2018 3:33 PM CST [facility] Anesthesia Pre-op Evaluation Procedure: Procedure(s): LAPAROSCOPIC EXPLORATION ABDOMEN, possible bowel resection HPI: 63 y.o. old female with Sbo (small bowel obstruction) ([facility]) NPO Status: Last Fluid Intake Time: 0700 Last Fluid Intake Date: 08/20/18 Last Food Intake Date: 08/20/18 Last Food Intake Time: 0700 Allergies Allergen Reactions ??? Cefazolin Rash PN: LW Reaction: Rash, Generalized, ??? Meperidine PN: LW Reaction: GI Upset ??? Morphine PN: LW Reaction: GI Upset ??? Review Contrast Media PN: LW CM1: CONTRAST- nka Reaction : ??? Review Food Intolerance PN: LW FI1: nka No past medical history on file. Patient Active Problem List Diagnosis ??? SBO (small bowel obstruction) ([facility]) No past surgical history on file. Outpatient Medications Marked as Taking for the 08/20/18 encounter (Hospital Encounter) Medication Sig Dispense Refill ??? Ascorbic Acid (VITAMIN C OR) Take 1 tablet by mouth daily (every 24 hours). ??? Calcium Citrate-Vitamin D (CALCIUM CITRATE + D OR) Take by mouth daily (every 24 hours). ??? cholecalciferol (AKA VITAMIN D3) 1000 UNITS tablet Take by mouth daily (every 24 hours). ??? FLUoxetine (AKA PROZAC) 20 MG capsule Take 1 capsule by mouth daily (every 24 hours). LW Addl Instr:Indicated for: Depression 30 3 ??? levothyroxine (SYNTHROID) 175 MCG tablet Indications: PN: LAYNE NICHOLE FriMay 03, 2015 1:28 PM Received from: External Pharmacy 1 ??? Multiple Vitamins-Minerals (MULTIVITAMIN OR) Take 1 tablet by mouth daily (every 24 hours). 100 13 ??? piroxicam (AKA FELDENE) 20 MG capsule Take 1 capsule by mouth daily (every 24 hours). LW Addl Instr:Take with food. Indicated for: Arthritis 90 3 Current Facility-Administered Medications Medication Dose Route Frequency ??? [MAR Hold] clindamycin in dextrose 5% (CLEOCIN) IVPB 900 mg 900 mg Intravenous Once ??? fentaNYL (SUBLIMAZE) 100 MCG/2ML injection - ADS Override Pull ??? fentaNYL (SUBLIMAZE) injection 25-100 mcg 25-100 mcg Intravenous Q5MIN PRN ??? fentaNYL (SUBLIMAZE) injection 25-50 mcg 25-50 mcg Intravenous Q5MIN PRN ??? [MAR Hold] gentamicin 120 mg in sodium chloride 0.9 % 100 mL IVPB 1.5 mg/kg Intravenous Once ??? HYDROmorphone injectable 0.2-0.4 mg 0.2-0.4 mg Intravenous Q10MIN PRN ??? [MAR Hold] HYDROmorphone injectable 0.5 mg 0.5 mg Intravenous Q15MIN PRN ??? [MAR Hold] lactated ringers infusion 25 mL/hr Intravenous Continuous ??? [MAR Hold] lidocaine (XYLOCAINE) 1 % injection 0.1-0.3 mL 0.1-0.3 mL Subcutaneous Once And ??? [MAR Hold] lidocaine (XYLOCAINE) 1 % injection 0.1-0.3 mL 0.1-0.3 mL Subcutaneous PRN ??? [MAR Hold] lidocaine (XYLOCAINE) 1 % injection 0.1-0.3 mL 0.1-0.3 mL Subcutaneous Once And ??? [MAR Hold] lidocaine (XYLOCAINE) 1 % injection 0.1-0.3 mL 0.1-0.3 mL Subcutaneous PRN ??? midazolam (VERSED) injection 1-2 mg 1-2 mg Intravenous Q5MIN PRN ??? ondansetron (ZOFRAN) injection 4 mg 4 mg Intravenous Q4H PRN Labs: Lab Results Component Value Date/Time SODIUM 142 08/20/2018 11:54 AM K 3.6 08/20/2018 11:54 AM CHLORIDE 103 08/20/2018 11:54 AM BUN 22 08/20/2018 11:54 AM CREATININE 0.54 (L) 08/20/2018 11:54 AM GLUCOSE 144 (H) 08/20/2018 11:54 AM Lab Results Component Value Date/Time WBC 9.7 08/20/2018 11:54 AM HGB 13.6 08/20/2018 11:54 AM HCT 41.2 08/20/2018 11:54 AM PLTS 271 08/20/2018 11:54 AM No results found for: INR No results found for: HCGQUANT Urine : Urine : Blood Bank: No results found for: ABORH, ABSCR EKG: No results found for this or any previous visit. Physical Exam: BP (!) 187/73 Pulse (!) 59 Temp (!) 35.9 ??C (96.6 ??F) (Temporal) Resp 16 Ht 5' 5 Wt 81.6 kg (180 lb) SpO2 100% BMI 29.95 kg/m?? Assessment/Plan: Review of Systems Patient does not have GERD. Patient is not a smoker. The patient denies alcohol use. Patient denies any recent URI. History of PONV: No. History of motion sickness: No. Patient denies any personal or family history of anesthesia complications (PONV). Exam Mental Status: Alert and oriented. Mallampati score: I (One). Mouth opening: Normal Thyromental Distance: > 3 finger breadths and Normal Neck Extension: Full Neck Circumference > 40 cm?: No Current airway assessment:Normal Dentition: Normal. Cardiac Exam: Regular rate and rhythm. Respiratory Exam: Breath sounds clear to auscultation Assessment ASA Status: 2 . Plan Anesthesia type: General and ETT Induction: Intravenous and PropofolMaintenance: Inhalation Postoperative pain management (PONV): Plan for postoperative opioid use PONV Risk Score Peds:0 PONV Risk Score Adult: 3 PONV Prophylaxis (planned):Ondansetron and Scopolamine Patch Anesthetic plan, risks, benefits and alternatives discussed with: Patient H&P Reviewed and Patient examined, no change observed IV access Antibiotics per surgery Electronically signed by: Carloz Reaves MD 08/20/2018 3:[address] COMMISSIONER documented in this encounter Plan of Treatment Not on filedocumented as of this encounter Visit Diagnoses Not on filedocumented in this encounter Administered Medications Inactive Administered Medications - up to 3 most recent administrations Medication Order MAR Action Action Date Dose Rate Site acetaminophen (OFIRMEV) infusion Given 08/20/2018 7:[address] 1,000 mg Administer over 15 Minutes, Starting on Diamond 08/20/18 at 1937 clindamycin in dextrose 5% (CLEOCIN) IVPB 900 Given 4:[address] COMMISSIONER 900 mg mg 900 mg, Intravenous, Administer over 30 Minutes, ONCE, On Diamond 08/20/18 at 1515, For 1 dose, Infuse within 60 minutes prior to incision; Re-dose 900mg IV every 6 hours after initial dose until incision closed., Pre-Op Signed and Held dexamethasone (aka DECADRON) injection Given 08/20/2018 4:[address] COMM[facility] 4 mg Intravenous, Starting on Diamond 08/20/18 at 1640 ePHEDrine 5mg/ml in 0.9% sodium chloride Given 08/20/2018 5:[address] COMMISSIONER 10 mg syringe Starting on Diamond 08/20/18 at 1642, Until Diamond 08/20/18 at 2018 Given 08/20/2018 4:[address] COMMISS[facility]ER 15 mg fentaNYL (SUBLIMAZE) 100 Override pull for 08/20/2018 4:[address] COMMISSIONER MCG/2ML injection - ADS Anesthesia Override Pull Starting on Diamond 08/20/18 at 1523, Until Diamond 08/20/18 at 1629, For 1 dose, Gladys Larson : cabinet override fentaNYL (SUBLIMAZE) injection Given 08/20/2018 6:[address] COMMISSIONER 100 mcg Intravenous, Starting on Diamond 08/20/18 at 1629, Until Diamond 08/20/18 at 2018 Given 08/20/2018 5:[address] COMMISS[facility] 50 mcg Given 08/20/2018 5:[address] COMMISS[facility] 50 mcg hetastarch-NaCl (heSPAN) 6-0.9 % infusio n Started 08/20/2018 4:[address] COMMISSIONER Starting on Diamond 08/20/18 at 1657, Until Diamond 08/20/18 at 2018 HYDROmorphone (DILAUDID) injection Given 08/20/2018 5:[address] COMM[facility] 0.5 mg Starting on Diamond 08/20/18 at 1718, Until Diamond 08/20/18 at 2018 Given 08/20/2018 5:[address] [facility] 0.5 mg lactated ringers infusion Started 08/20/2018 8:[address] COMMISS[facility]ER 25 mL/hr, Intravenous, CONTINUOUS, Starting on Diamond 08/20/18 at 1515, Administer on all preop surgery patients, ages 12 and older, unless specified differently in the Protocol for Preop Initiation of IV fluids Order Set., Pre-op Started 08/20/2018 6:[address] [facility] Restarted 08/20/2018 5:[address] [facility] lidocaine (XYLOCAINE) 1 % injection Given 08/20/2018 4:[address] [facility] 50 mg Intravenous, Starting on Diamond 08/20/18 at 1629 midazolam (VERSED) injection 1-2 mg Given 08/20/2018 4:[address] [facility] 2 mg 1-2 mg, Intravenous, [id number], Sedation, Anxiety, Procedure, Starting on Diamond 08/20/18 at 1503, Until Diamond 08/20/18 at 2128, MAX Dose 2mg, Pre-op midazolam (VERSED) injection Given 08/20/2018 4:[address] COMM[facility]ER 2 mg Intravenous, Starting on Diamond 08/20/18 at 1624, Until Diamond 08/20/18 at 2018 ondansetron (ZOFRAN) injection Given 08/20/2018 7:[address] COMM[facility] 4 mg Intravenous, Starting on Diamond 08/20/18 at 1928, Until Diamond 08/20/18 at 2018 propofol (DIPRIVAN) 10 MG/1ML injection Given 08/20/2018 4:[address] COMMISSIONER 200 mg Intravenous, Starting on Diamond 08/20/18 at 1629, Until Diamond 08/20/18 at 2018 rocuronium (ZEMURON) injection Given 08/20/2018 6:[address] COMMISSIONER 10 mg Intravenous, Starting on Diamond 08/20/18 at 1636 Given 08/20/2018 6:[address] COMM[facility] 20 mg Given 08/20/2018 5:[address] COMMISSION[facility] 30 mg succinylcholine (QUELICIN) injection Given 08/20/2018 4:[address] COMMISS[facility] 160 mg Intravenous, Starting on Diamond 08/20/18 at 1629, Until Diamond 08/20/18 at 2018 sugammadex (BRIDION) injection Given 08/20/2018 7:[address] COMMISSION[facility] 163.2 mg Starting on Diamond 08/20/18 at 1946, Until Diamond 08/20/18 at 2018 documented in this encounter Care Teams Marine Fire Fighter Relationship Specialty Start Date End Date Vanessa Mills MD PCP - General 04/03/[address] [place] [id number] documented as of this encounter
--- OUTSIDE RECORDS SUMMARY | 2022-04-16 19:44 | XMS_ITS | Encounter Summary ---
:1955 Author Organization [employer] Address [address] [place] [address] Care Team Providers Name Role Phone Vanessa Mills MD Primary Care Provider Reason for Visit Reason Comments AFTERCARE, SURGICAL Encounter Details Date Type Department Care Team Description 09/02/2018 Telephone Specialty Center 3931 Christina Almeida, AFTERCARE, SURGICAL General Surgery RN [address] [facility] [address] [place], [place] [id number] Social History Tobacco Use Types Packs/Day Years [...] documented as of this encounter Nursing Notes Christina Almeida, RN - 09/02/2018 10:49 AM CST Pt s/p exploratory laparoscopy, Ileocecectomy on 08/20/[address] Hutchinson to report fluid pouring outof incision. Pt states the fluid was a clear-pink color. Pt also states she has had the chills for afew days. Discussed the likelihood of a seroma. Pt will come in for a nurse visit to assess the wound and symptoms. Pt verbalizes understanding and agrees with the plan. S CONSULTANT RESIDENTIAL MANAGER documented in this encounter Plan of Treatment Not on filedocumented as of this encounter Visit Diagnoses Not on filedocumented in this encounter Care Teams Loan Closer Relationship Specialty Start Date End Date Vanessa Mills MD PCP - General 04/03/[address] [place] [id number] documented as of this encounter
--- OUTSIDE RECORDS SUMMARY | 2022-04-16 19:44 | XMS_ITS | Encounter Summary ---
:1955 Author Organization [facility] [employer] Address [address] [place] [address] Care Team Providers Name Role Phone Vanessa Mills MD Primary Care Provider Reason for Visit Reason Comments INFECTION, WOUND (POST-OPERATIVE) Encounter Details Date Type Department Care Team Description 09/04/2018 Nursing Visit Specialty Center 3931 Nurse, [id number] SBO ( small bowel General Surgery Gsurg 13 obstruction) ([facility]) [address] [facility] [address] [place], [place] [address] Social History Tobacco Use Types Packs/Day Years [...] documented as of this encounter Progress Notes Yuliana Radford RN - 09/04/2018 1:00 PM CST Patient comes in for wound check. 2 days ago, was in clinic and karolina were removed from bottom third of incision - patient was having drainage from bottom of wound. She has been keeping it clean and dry but today thought the drainage smelled foul and was thicker. Incision checked - no redness or swelling. Bottom of incision has 2 small holes that are draining clear, yellow fluid. There is also drainage from a small area at the top of the wound. Bioinformatics Research Technician spoke with Dr Hutchinson on the phone who advisedthat the rest of the karolina be removed. [place] were removed without difficulty. Dr Arthur brought into room and reassured patient. Advised patient that she will continue to have drainage but no infect ion seen. Instructed to continue wound cares, keeping clean and dry. Patient was given supplies for dressing changes. All questions answered. Patient will f/u with Dr Hutchinson as scheduled 09/22 and call if any other questions/concerns arise in the meantime. L PELLER documented in this encounter Plan of Treatment Not on filedocumented as of this encounter Visit Diagnoses Diagnosis SBO (small bowel obstruction) ([facility]) - Pr imary Unspecified intestinal obstruction documented in this encounter Care Teams Yarding Supervisor Relationship Specialty Start Date End Date Vanessa Mills MD PCP - General 04/03/15 [address] [facility] [address] [facility] [place] [address] documented as of this encounter
--- OUTSIDE RECORDS SUMMARY | 2022-04-16 19:44 | XMS_ITS | Encounter Summary ---
:1955 Author Organization [facility] Address [address] [place] [address] Care Team Providers Name Role Phone Vanessa Mills MD Primary Care Provider Reason for Visit Reason Comments Wound Check Encounter Details Date Type Department Care Team Description 09/02/2018 Nursing Visit Specialty Center 3931 Nurse, [id number] SBO ( small bowel General Surgery Gsurg 13 obstruction) ([facility]) [address] [facility] [address] [place] [address] Social History Tobacco Use Types [...] documented as of this encounter Progress Notes Christina Almeida RN - 09/02/2018 1:10 PM CST Pt here to have wound checked from s/p exploratory laparoscopy, Ileocecectomy on 08/20/[address] Hutchinson. States fluid was pouring out of it this morning and soaked her shirt and she is worried about infection. KAVITHA Shaikh asked to assess with nurse as well. Wound well approximated, skin blotchy red around the outside, no signs of infection. Pt does report a few days of chills but is afebrile.Dr. Hutchinson paged and able to come btwn cases. She removed some karolina from the lower half of the incision to help facilitate draining in that area. Would like the pt come back early next week for a recheck. Advised to keep area clean and dry and covered until then. Pt verbalizes understanding and agrees with plan. Nurse visit made for 09/07/18 ATIONS LEAD documented in this encounter Plan of Treatment Not on filedocumented as of this encounter Visit Diagnoses Diagnosis SBO (small bowel obstruction) ([facility]) - Pr imary Unspecified intestinal obstruction documented in this encounter Care Teams Prefabricator Relationship Specialty Start Date End Date Vanessa Mills MD PCP - General 04/03/15 [address] [place] [address] documented as of this encounter
--- OUTSIDE RECORDS SUMMARY | 2022-04-16 19:44 | XMS_ITS | Clinical Summary ---
:1955 [facility] Address [address] [place] [address] Care Team Providers Name Role Phone Vanessa Mills MD Primary Care Provider Source Comments You are receiving this document as you are listed as the primary care provider,follow-up provider, or the patient has been referred to you for consultation.This is in compliance with the Medicare and Medicaid EHR Incentive Program,which states Providers who transition their patient to another setting of careor provider of care or refers their patient to another provider of care shouldprovide summarycare record for each transition of care or referral. [place] Allergies Active Allergy Reactions Severity Noted Date Comments Cefazolin Rash 05/03/2015 PN: LW Reaction : Rash, Generalized, Meperidine 01/02/2009 PN: LW Reaction : GI Upset Morphine 01/02/2009 PN: LW Reaction : GI Upset Review Contrast Media 04/05/1997 PN: LW CM1: CONTRAST- nka Reaction : Review Food Intolerance 01/02/2009 PN: LW FI1: nka Medications Medication Sig Dispensed Refills Start Date End Date Status cholecalciferol (AKA Take by mouth 0 01/02/2009 Active VITAMIN D3) 1000 UNITS daily (every 24 tablet hours). Multiple Take 1 tablet by 100 13 01/02/2009 Ac tive Vitamins-Minerals mouth daily (MULTIVITAMIN OR) (every 24 hours). Ascorbic Acid (VITAMIN Take 1 tablet by 0 01/02/2009 Active C OR) mouth daily (every 24 hours). Calcium Take by mouth 0 01/02/2009 Activ e Citrate-Vitamin D daily (every 24 (CALCIUM CITRATE + D hours). OR) FLUoxetine (AKA Take 1 capsule by 30 3 01/02/2009 Active PROZAC) 20 MG capsule mouth daily (every 24 hours). LW Addl Instr:Indicated for: Depression levothyroxine Take 1 tablet po 1 05/01/2015 Active (SYNTHROID) 175 MCG daily. Takes tabletIndications: brand Synthroid. LAYNE NICHOLE Wed May 03, 2015 1:28 PM Received from: External Pharmacy losartan/hydrochloroth Take 0.5 Tablets 0 Active iazide (HYZAAR) 100-25 by mouth daily. MG tablet amLODIPine (NORVASC) Take 10 mg by 0 Active 10 MG tablet mouth daily. celecoxib (CELEBREX) Take 200 mg by 0 Active 200 MG capsule mouth daily. oxyCODONE (ROXICODONE) Take 1 Tablet by 20 Tablet 0 08/27/2018 Active 5 MG immediate release mouth every 4 tablet hours as needed. HYDROmorphone Take 1 Tablet by 10 Tablet 0 08/27/2018 Active (DILAUDID) 2 MG tablet mouth every 3 hours as needed. calcium polycarbophil Take 1 Tablet by 100 Tablet 6 09/22/2018 Active (FIBERCON) 625 MG mouth two times a tablet day. OK to increase to up to 4 times a day as needed for stool regulation. Active Problems Problem Noted Date SBO (small bowel obstruction) 08/20/2018 Overview: Added automatically from request for john black [id number] Social History Tobacco Use Types Packs/Day Years [...] Assigned at Date Recorded Not on file Last Filed Vital Signs Vital Sign Reading Time Taken Comments Blood Pressure 122/63 08/27/2018 6:04 AM [employer] Pulse 65 08/27/2018 6:04 AM [employer]CTION OFFIC[employer] Temperature 36.9 ??C (98.5 ??F) 08/27/2018 6:04 AM [employer]CTION OFFICER Respiratory Rate 16 08/27/2018 6:04 AM [employer]OTECTION OFFICER Oxygen Saturation 100% 08/27/2018 6:04 AM [employer]CTION OFFICER Inhaled Oxygen Concentration - - Weight 82.6 kg (182 lb 3.2 oz) 08/26/2018 9:42 PM [employer]CTION [employer]ICER Height 165.1 cm (5' 5) 08/20/2018 3:08 PM [employer]CTION [employer]ICER Body Mass Index 30.32 08/20/2018 3:08 PM [employer]OTECTION OFFICER Plan of Treatment Health Maintenance Due Date Last Done Comments Colon Cancer Screening Plan 1955 Due Hep C Screening (Preventive 1955 Services) Mammogram 1955 COVID-19 Vaccine (#1) 1955 Adult Preventive Visit 1972 Cholesterol 1999 Zoster/Shingles (1 of 2) 2004 Pneumococcal 65+ Yrs (2 - 07/05/2021 07/05/2020 PCV) Influenza (#1) 2022 07/05/2020 DTaP/Tdap/Td (2 - Tdap) 01/14/2024 01/13/2014, 08/30/2003 HepA Aged Out 04/30/2005, 04/30/2005, No longe r eligible 10/09/2004, Additional based on patient's age history exists to complete this topic HepB Aged Out No longer eligib le based on patient 's age to complete this topic Hib Aged Out No longer eligib le based on patient 's age to complete this topic IPV (Polio) Aged Out No longer eligib le based on patient 's age to complete this topic MCV4 Aged Out No longer eligib le based on patient 's age to complete this topic Insurance Payer Benefit Plan / Subscriber ID Effective Phone Address T ype Group Dates [facility] [id number] 2018-Pre [phone] [address] sent [phone] [place] [address] [facility] [employer] [id number] 2014-Pre [phone] [employer] sent [phone] [place] [address] (Home) W [phone] [facility] [id number] Valeri Keenan Personal/Family Self [address] (Home) W [phone] [place] (Work) [phone] Valeri Keenan Personal/Family Self 1955 [address] (Home) W [phone] [place] (Work) [phone] Advance Directives Latest Code Status on File Code Status Date Activated Date Inactivated Comments Full Code 08/20/2018 8:16 PM 08/27/2018 2:08 PM Care Teams Client Retention Specialist Relationship Specialty Start Date End Date Vanessa Mills MD PCP - General 04/03/[address] [place] [id number]
--- OUTSIDE RECORDS SUMMARY | 2022-04-16 19:45 | XMS_ITS | Encounter Summary ---
:1955 Author Organization [facility] Address [address] [address] Care Team Providers Name Role Phone Md YAKELIN Jauregui Primary Care Provider Encounter Details Date Type Department Care Team Description 10/27/1997 PN Conversion Only [facility] Me jo Mead MD Medicine [address] [facility] [address] [facility] [address] [place], [place] [id number] [place] [id number] (Wo rk) Social History Tobacco Use Types Packs/Day Years Used Date Smoking Tobacco: Never Assessed Sex Assigned at Date Recorded Not on file documented as of this encounter Progress Notes Conversion, [facility] - 07/02/2000 12:01 AM CST Phone Note signed by at 07/02/00 0952 Author: Eder Conversion Service: (none) Author Type: (none) Filed: 12/05/10 1923 Note Time: 07/02/00 0001 Status: Signed Marketing Campaign Analyst: Eder Conversion IMPRESSION: HEADACHE, ELEVATED BP TO: CURLY MEAD FROM: JASPREET BARRIENTOS [id number] 07/02/00 * PROVIDER MESSAGE: ROUTINE * 09:52AM * *WITHIN 4 HOURS * MESSAGE: Unable to sched. has seen * HOME PHONE:[phone] * Dr. Mead and Dr. Velazco. * WORK PHONE:[phone] * Requesting poss. work in with * CONTACT PHONE:[phone] * someone. May reach @ work. SUBJECTIVE: CHIEF CONCERN... Pt calling: for 2 wks having headache top of head, feels like a presur e, wakes up with this. Advil might help, is all day long, always same spot. Denies visual changes, is feeling light headed today for the 1st time. BP is 135/90, her norm is 110/60, familial hx htn. No other sx. ALLERGIES/SENSITIVITIES... nkda; no other allergies 07/02/00 CURRENT MEDICATIONS... Celebrex; Advil 07/02/00 PERTINENT PAST HISTORY... good health 07/02/00 WEIGHT: PATIENT IS NOT . PATIENT IS NOT NURSING. ASSESSMENT: HEADACHE, ELEVATED BP PLAN: COMMENTS: Advil with some relief. DISPOSITION: NO DISPOSITION GIVEN CALL BY JASPREET BARRIENTOS 07/02/2000 09:46AM [id number] ADDENDUM: <> 07/02/2000 11:15AM by JASPREET BARRIENTOS: Per Dr. Mead: No appt available. Needs UC if SAWANT is severe./// Pt notified. States, I don't have any leslee in UC, but I will see. Atte mpted to strongly encourage her to at least start poss. tx there, and follow through with PMD. She sounded doubtful but advised her would send note to UC for her visit there. SENT PATIENT TO URGENT CARE AT [facility] VATOR MACHINE OPERATOR Curly Mead MD - 10/27/1997 12:01 AM CST Progress Notes signed by at 11/08/97 1745 Author: Curly Mead MD Service: (none) Author Type: (none) Filed: 12/05/10 0333 Note Time: 10/27/97 0001 Status: Signed Marketing Campaign Analyst: Eder Conversion IMPRESSION: Palpitations, most likely PSVT. SUBJECTIVE: Valeri Keenan is a 42-year-old lady who complains of palpitations. The first episode was in August, while she was on vacation. She woke up from her sleep with a very rapid heartbeat, some mild shortness of breath, and a lot of anxiety. Symptoms lasted two hours and went away for a couple of weeks and then they returned, but not as severe, but more often. In fact now she is having them daily. They usually last less than 10-15 minutes. No shortness of breath or light headedness. No chest pain until two days ago. The chest pain was not necessarily associated with the palpitations, but was constant all day. Now today the symptoms are much better. PAST MEDICAL HISTORY: None. PAST SURGICAL HISTORY: Toe surgery and appendectomy. FAMILY HISTORY: Father of an RI at age 58. His first RI was at age 53. Her mother has hypertension. The patient does not smoke. MEDICATIONS: None. ADVERSE DRUG REACTIONS: NKDA. OBJECTIVE: BP: 122/76. R: 12. P: 67, regular. Wt: 160. PHYSICAL EXAM: Generally no distress. Neck, normal carotid pulses. Heart was regular with a I/ late holosystolic murmur. Lungs were clear. Abdomen soft, nontender. Normal bowel sounds. No organomegaly. Extremities, no edema. Normal pulses. ASSESSMENT: Palpitations, most likely PSVT. PLAN: Will check a Holter as these are occurring daily. We will do a thyroid, electrolytes, hemoglobin, and a glucose. We will call her with the results. srw VATOR MACHINE OPERATOR Lui Gardner DPM - 08/25/1997 12:01 AM CST Progress Notes signed by Lui Gardner DPM at 09/05/97 0826 Author: Lui Gardner DPM Service: (none) Author Type: Physician Filed: 12/05/10 0233 Note Time: 08/25/97 0001 Status: Signed Marketing Campaign Analyst: Lui Gardner DPM (Physician) IMPRESSION: Metatarsalgia. Excessive pronation. SUBJECTIVE: Valeri Munguia presents to followup strapping applied at the last visit. She responded favorably and is here to be casted. OBJECTIVE: N/A. ASSESSMENT: 1. Metatarsalgia. 2. Excessive pronation. PLAN: The patient was casted at this time and will be contacted when the orthotics are ready for dispensing. qte Lui Valdez DPM - 07/28/1997 12:01 AM CST Progress Notes signed by Lui Gardner DPM at 08/05/97 1718 Author: Lui Gardner DPM Service: (none) Author Type: Physician Filed: 12/05/10 0211 Note Time: 07/28/97 0001 Status: Signed Marketing Campaign Analyst: Lui Gardner DPM (Physician) IMPRESSION: Four months' status post 2d partial metatarsal head resection; metatarsalgia. SUBJECTIVE: Patient presents four months post-2d MTP joint capsule repair right foot. She was told at her last visit that she may develop a transfer lesion, and she stated that she is not having any tenderness there, but she is having some soreness in a different spot, and she points to the plantar aspect of the fibular sesamoid. She describes it as a soreness, and she definitely does not have the pain that she had before surgery. She feels as though the 2d toe is out of place before surgery, and she feels as though it has been relocated and is happy with that. She is walking approximately 12-15 miles a week without limitation. OBJECTIVE: Findings reveal there is still some induration and erythema of the scar and some tenderness dorsally. There is no pain plantar to the 2d or 3d MTP joints. Some tenderness at the plantar aspect of the fibular sesamoid. On stance, the 2d digit is elevated and does not purchase the weightbearing surface. ASSESSMENT: Four months' status post 2d partial metatarsal head resection; metatarsalgia. PLAN: Suggested that there is some scar remodeling to take place internally as well as externally. Will temporarily support her foot today, and if she gets relief of the pain beneath the fibular sesamoid, will consider a functional orthotic. If she does not respond to the strapping, she will simply call in two months with the report. dla uLi Valdez DPM - 06/02/1997 12:01 AM CDT Progress Notes signed by Lui Gardner DPM at 06/09/97 1702 Author: Lui Gardner DPM Service: (none) Author Type: Physician Filed: 12/05/10 0121 Note Time: 06/02/97 0001 Status: Signed Marketing Campaign Analyst: Lui Gardner DPM (Physician) IMPRESSION: Eight weeks status post partial second metatarsal head resection, right foot, without complication. SUBJECTIVE: Valeri Keenan presents eight weeks post partial second metatarsal head resection, right foot. She states that she has begun to walk about a mile a day. She has some soreness but not unexpectedly. She has no new complaints. OBJECTIVE: Incision is healed. There is some induration on palpation both dorsally and plantarly. Some tenderness as well. alignment of the digit is satisfactory, nonweightbearing. There is some extension on weightbearing. There is no crepitus with extension and flexion of the second MTP joint. X-rays demonstrate appropriate resection of the second metatarsal head. Alignment is satisfactory. ASSESSMENT: Eight weeks status post partial second metatarsal head resection, right foot, without complication. PLAN: The patient will continue increasing activities. Return for recheck in eight weeks. qte Lui Gardner DPM - 04/21/1997 12:01 AM CDT Progress Notes signed by Lui Gardner DPM at 05/05/97 7027 Author: Lui Gardner DPM Service: (none) Author Type: Physician Filed: 12/05/10 0048 Note Time: 04/21/97 0001 Status: Signed Marketing Campaign Analyst: Lui Gardner DPM (Physician) IMPRESSION: Two weeks status post partial second metatarsal head resection, right foot, without complications. SUBJECTIVE: Valeri Keenan presents two weeks post partial second metatarsal head resection, right foot. She has no new complaints. OBJECTIVE: Findings reveal the dressing is dry and intact. Upon removal of the dressing the sutures are in place. There is minimal edema and no erythema or drainage. Alignment is anatomic. ASSESSMENT: Two weeks status post partial second metatarsal head resection, right foot, without complications. PLAN: Sutures were removed and a Betadine dressing was applied. The patient may begin bathing, return to closed shoes, and increase activities as tolerated. She will return for recheck in four weeks. jfl Lui Gardner DPM - 04/08/1997 12:01 AM CDT Progress Notes signed by Lui Gardner DPM at 04/14/97 1717 Author: Lui Gardner DPM Service: (none) Author Type: Physician Filed: 12/05/10 0038 Note Time: 04/08/97 0001 Status: Signed Marketing Campaign Analyst: Lui Gardner DPM (Physician) IMPRESSION: Three days status post second partial metatarsal head resection, rightfoot, without complication. SUBJECTIVE: Valeri Keenan presents three days status post partial second metatarsal head resection, right foot. She has had very little pain, has been ambulating well. OBJECTIVE: Dressing dry and intact. On removal, sutures are in place, minimal edema, no erythema or drainage. Alignment is satisfactory. ASSESSMENT: Three days status post second partial metatarsal head resection, right foot, without complication. PLAN: Reviewed the procedure and the potential for complications. Will return for suture removal in ten days. qtd Lui Gardner DPM - 03/31/1997 12:01 AM CDT Progress Notes signed by Lui Gardner DPM at 04/07/97 1401 Author: Lui Gardner DPM Service: (none) Author Type: Physician Filed: 12/05/10 0032 Note Time: 03/31/97 0001 Status: Signed Marketing Campaign Analyst: Lui Gardner DPM (Physician) IMPRESSION: Second metatarsophalangeal joint capsule tear right foot. SUBJECTIVE: Valeri Keenan presents with her for preop. She is scheduled for second MTP joint capsule repair at [facility] next week. She continues to have pain. OBJECTIVE: Findings reveal pain on palpation plantar aspect of the second MTP joint capsule right foot. The proximal phalanx is dorsiflexed and adducted. Pain is noted with Stevie test. Pulses are palpable. Arthrogram is not available for review. ASSESSMENT: Second metatarsophalangeal joint capsule tear right foot. PLAN: Reviewed the deformity and the surgical procedure, including the postoperative course, possible complications to include but not limited to pain, infection, numbness, residual deformity, residual discomfort, transfer lesion, and the possibility that additional procedures may be required in the future. Answered all questions. stp Mitul Velazco MD - 03/31/1997 12:01 AM CDT Progress Notes signed by Mitul Velazco MD at 05/25/97 3324 Author: Mitul Velazco MD Service: (none) Author Type: Physician Filed: 12/05/10 0032 Note Time: 03/31/97 0001 Status: Signed Marketing Campaign Analyst: Mitul Velazco MD (Physician) IMPRESSION: Capsule tear of the second metatarsal phalangeal joint. SUBJECTIVE: Valeri is a 42-year-old woman who has had problems with her right second toe for approximately 8 months. She initially had it injected with Cortisone, but that caused more pain. Repeat injections did not improve it. She did have an evaluation that showed that she had a capsule tear of the second metatarsal phalangeal joint and she is being evaluated for the repair of this capsule tear. REVIEW OF SYSTEMS: No HEENT concerns. She does wear contacts. No cough, shortness of breath, chest pain, nausea, vomiting, diarrhea, constipation, blood in her stool, or melena. No dysuria. She does have some hip and back pain that she attributes to walking abnormally because of her right toe. Her LMP was 03-30-97. PAST MEDICAL HISTORY: , P:2, one miscarriage and an appendectomy. SOCIAL HISTORY: She is . Does not smoke. Rare alcohol. 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 Her father at 58 of an RI. Her mother is 79 with hypertension and arthritis. OBJECTIVE: Ht: 5 ft 4 in. Wt: 156. BP: 126/80. P: 72. T: 97.9. R: 16. In general, she looks well. HEENT is unremarkable. Lungs are clear. Cardiovascular exam, normal S1, S2. Regular rate and rhythm. No murmurs, rubs or gallops. Abdominal exam, bowel sounds are present, soft, and nontender. DTRs are symmetric. Toes are downgoing. Motor strength is intact to upper and lower. Cranial nerves II-XII are intact. The patient is alert, oriented, and cooperative. She has her second and third toes taped together of her right foot. There is an obvious deformity to the second toe. ASSESSMENT: The patient is a satisfactory operative candidate for a capsular repair of the second toe metatarsal phalangeal joint. PLAN: She should avoid aspirin, but otherwise no specific instructions. I am checking a CBC with platelets. srw Lui Gardner DPM - 02/03/1997 12:01 AM CDT Progress Notes signed by Lui Gardner DPM at 02/21/97 1439 Author: Lui Gardner DPM Service: (none) Author Type: Physician Filed: 12/04/10 2544 Note Time: 02/03/97 0001 Status: Signed Marketing Campaign Analyst: Lui Gardner DPM (Physician) IMPRESSION: Capsule tear second metatarsal-phalangeal joint right foot. SUBJECTIVE: Valeri Keenan is seen in the X-ray Department for an arthrogram second metatarsal-phalangeal joint right foot. She continues to have pain on a daily basis. She is scheduled for surgery next week but thinks that she might change it to March if it would not be detrimental. OBJECTIVE: Findings reveal the second digit is extended at the metatarsal-phalangeal joint and adducted. There is flexion of the proximal interphalangeal joint. Tenderness is noted on palpation of the plantar aspect. ASSESSMENT: Capsule tear second metatarsal-phalangeal joint right foot. PLAN: 1. Reviewed the arthrogram procedure including the potential complications of infection, pain, and allergic reaction. The patient elects to proceed. The skin over the second metatarsal- phalangeal joint was prepped with Betadine. A 25 gauge needle was introduced and under image intensification injected 2 cc of a 2:1 mixture of Renografin 60 to 2% lidocaine plain. Early on in the injection extravasation was noted medially along the intrinsic musculature between the first and second metatarsals. Secondly, an area of extravasation developed lateral-plantar to the metatarsal-phalangeal joint. Four views were obtained; AP, both obliques, and an axial. 2. We reviewed the implications of the findings including the surgical procedure and postoperative course. There would be no harm in delaying the procedure so she will call to change the date. std Lui Gardner DPM - 01/06/1997 12:01 AM CDT Progress Notes signed by Lui Gardner DPM at 01/24/97 1521 Author: Lui Gardner DPM Service: (none) Author Type: Physician Filed: 12/04/10 2333 Note Time: 01/06/97 0001 Status: Signed Marketing Campaign Analyst: Lui Gardner DPM (Physician) IMPRESSION: Probable metatarsophalangeal joint capsule tear second right. SUBJECTIVE: Valeri Keenan presents on referral from Dr. Montero to evaluate the second digit of her right foot. She states that she initially had pain in the second toe of the left foot which was injected with cortisone by and orthopedic surgeon. When she developed a similar problem in the right foot he repeated the injection and shortly thereafter she noticed a change in the alignment of her toe. She describes the toe as starting to turn and cross over the big toe. The deformity has been progressive. She was seen by Dr. Montero who initially felt she may have a neuroma. She received a therapeutic injection but did not respond favorably. A subsequent x-ray apparently led to the question of a capsule tear. Her chart is not available at this time. OBJECTIVE: The patient is a healthy 41-year-old female with a deformity of the second digit of the right foot with extension at the MTP joint, flexion of the PIP joint, and adduction of the entire second digit. Tenderness is noted on palpation of the plantar aspect of the MTP joint capsule, particularly the distal aspect adjacent to the base of the proximal phalanx. There is no subluxation with Stevie test; however, that test does elicit tenderness. Other toes have a normal amount of extension at the MTP joint, no transverse plane deformity. Pulses are palpable. Other findings are noncontributory. X-rays are not available. ASSESSMENT: Probable metatarsophalangeal joint capsule tear second right. PLAN: Reviewed the anatomic considerations and discussed capsule tears. Based on her deformity I would predict that there has been an avulsion of the plantar plate from the proximal phalangeal base. I will schedule and arthrogram to clarify the pattern and, therefore, the lesion. Discussed surgical correction including the postoperative course. The patient will schedule the procedure once the diagnosis has been established. sto Paul Montero DPM - 12/03/1996 12:01 AM CDT Progress Notes signed by Paul Montero DPM at 12/10/96 1414 Author: Paul Montero DPM Service: (none) Author Type: Physician Filed: 12/04/10 2305 Note Time: 12/03/96 0001 Status: Signed Marketing Campaign Analyst: Paul Montero DPM (Physician) IMPRESSION: Rule out capsular tear, second digit, right foot. SUBJECTIVE: Valeri Keenan presents for follow-up. She indicates that the initial day of the injection she was better, but she still had some discomfort. She states that the injection did give her relief for approximately three weeks. The inserts have not made much difference. She again believes that there was no drift to the second digit until she had the injection by her orthopedist. Her pain again has been going on since June. OBJECTIVE: Patient continues to have a transverse deviation of the second digit on the right foot. This is a medial deviation off the metatarsal. There is a sagittal plane deformity as well. She does have discomfort again with compression of the second metatarsal. However, the third and fourth MPJs are diffusely uncomfortable. There is pain in the second intermetatarsal space. X-rays obtained today reveal the transverse deviation of the proximal phalanx off the metatarsal head. The second and third metatarsals are in extreme close proximity. Comparison of the patient's contralateral foot shows no deformity present. There is pain with range of motion of the digit. ASSESSMENT: Rule out capsular tear, second digit, right foot. PLAN: Treatment options were discussed with the patient. I discussed with her that the injection did seem to give her relief, but did not completely relieve her discomfort. She may have gotten relief because of the close proximity of the metatarsals and if there was a tear laterally that some local could have entered here. I discussed with her that Dr. Gardner has a great deal of expertise in capsular-type problems, and I would like her to see him for his evaluation and treatment. She is agreeable with this approach, and will follow up with him in [place]. cc: Lui Gardner DPM lap Paul Montero DPM - 11/05/1996 12:01 AM CST Progress Notes signed by Paul Montero DPM at 11/11/96 6961 Author: Paul Montero DPM Service: (none) Author Type: Physician Filed: 12/04/10 9158 Note Time: 11/05/96 0001 Status: Signed Marketing Campaign Analyst: Paul Montero DPM (Physician) IMPRESSION: Rule out neuroma second intermetatarsal space vs neuroma. SUBJECTIVE: Valeri Keenan presents for evaluation of a painful right foot. She states that this is more a second opinion. She has been seeing an orthopedist who gave her an injection and then discussed doing a surgical procedure which would include a wire. Patient did have some left foot discomfort which was initially resolved with an injection. The right foot began bothering her in June. She does walk three to four miles per day. She did initially try non-steroidal anti-inflammatory medication. Then she had a cortisone injection five weeks ago. She has had questionable relief with this. She is also concerned because it appears that since the injection the second toe has drifted somewhat. Further questioning indicates that the patient did have body aches and was worked up approximately ten years ago with a rheumatoid profile. This was negative. Patient denies allergies to medications. OBJECTIVE: Dorsalis pedis and posterior tibial pulses are +2/4. Patient does have a slight medial deviation of the second digit of the right foot. There is pain which appears to be over the second, third, and fourth MPJs. This is diffuse in nature. She does have a trigger point area of pain which appears in the second intermetatarsal space of the right foot. A Lupis's sign is not palpated. There is only slight pain with forced range of motion of the second digit. No other abnormalities noted. ASSESSMENT: Rule out neuroma second intermetatarsal space vs metatarsalgia. PLAN: Treatment options were discussed with the patient. I discussed with her that it is difficult to determine exactly what her problem is because she does have components of different diagnoses. She has never had anything to address her foot structure. I did suggest and dispense a size 1 temporary device. I also discussed with her a diagnostic and therapeutic injection. She agrees. When she described the first injection, this appears as though it was into the joint. The right foot was prepped and she was injected with 1 cc of 2% Lidocaine followed by 1 cc of Decadron LA and dexamethasone. This was into the second intermetatarsal space of the right foot. She will monitor her progress and follow up with me in four weeks. I would like her to wait 24 hours until she begins using the orthotic. She has not had x-rays and if her discomfort persists and proves to be other than a neuroma, we will certainly x-ray it at her next visit. lap VATOR MACHINE OPERATOR documented in this encounter Plan of Treatment Not on filedocumented as of this encounter Procedures Procedure Name Priority Date/Time Associated Comments Diagnosis ELECTROLYTES (NA, K, Routine 10/27/1997 12:42 Res ults for this CL, BICARB) PM RENOVATOR MACHINE OPERATOR procedure are i n the results section. GLUCOSE Routine 10/27/1997 12:42 Results for this PM RENOVATOR MACHINE OPERATOR procedure are i n the results section. THYROID STIMULATING Routine 10/27/1997 12:42 Resu lts for this HORMONE PM RENOVATOR MACHINE OPERATOR procedure are i n the results section. HEMOGLOBIN, BLOOD Routine 10/27/1997 12:42 Result s for this PM RENOVATOR MACHINE OPERATOR procedure are i n the results section. MAGNESIUM Routine 10/27/1997 12:42 Results for this PM RENOVATOR MACHINE OPERATOR procedure are i n the results section. CALCIUM Routine 10/27/1997 12:42 Results for this PM RENOVATOR MACHINE OPERATOR procedure are i n the results section. ANC RESULT CONVERSION Routine 06/02/1997 11:16 Re sults for this DEFAULT ORDER AM CDT procedure are in the results section. FL ARTHROGRAM ANKLE Routine 02/03/1997 2:30 PM Re sults for this LT CDT procedure are i n the results section. ANC RESULT CONVERSION Routine 12/03/1996 10:38 Re sults for this DEFAULT ORDER AM CDT procedure are in the results section. documented in this encounter Results Hemoglobin, Blood (10/27/1997 12:42 PM RENOVATOR MACHINE OPERATOR) athologist Signature Hemoglobin 13.2 11.8 - 15.5 HP CONVERSION gm/dL Specimen (Source) Anatomical Collection Method Collection Time Re ceived Time Location / / Volume Laterality 10/27/1997 12:42 PM RENOVATOR MACHINE OPERATOR Curly Mead MD LAB_1 Performing Organization Address City/[facility] Phon e Number HP CONVERSION Thyroid Stimulating Hormone (10/27/1997 12:42 PM RENOVATOR MACHINE OPERATOR) athologist Signature Thyroid 2.73 0.20 - HP CONVERSION Stimulating 5.50 Hormone mIU/mL Specimen (Source) Anatomical Collection Method Collection Time Re ceived Time Location / / Volume Laterality 10/27/1997 12:42 PM RENOVATOR MACHINE OPERATOR Curly Mead MD LAB_1 Performing Organization Address City/[facility] Phon e Number HP CONVERSION Electrolytes (NA, K, CL, Bicarb) (10/27/1997 12:42 PM RENOVATOR MACHINE OPERATOR) athologist Signature Sodium 140 137 - 147 HP CONVERSION mmol/L Potassium 4.9 3.5 - 5.2 HP CONVERSION mmol/L Chloride 104 98 - 110 HP CONVERSION meq/L Bicarbonate 33 23 - 33 HP CONVERSION mmol/L Specimen (Source) Anatomical Collection Method Collection Time Re ceived Time Location / / Volume Laterality 10/27/1997 12:42 PM RENOVATOR MACHINE OPERATOR Curly Mead MD LAB_1 Performing Organization Address City/State/ZIP Code Phon e Number HP CONVERSION Calcium (10/27/1997 12:42 PM RENOVATOR MACHINE OPERATOR) athologist Signature Calcium 9.7 8.5 - 10.5 HP CONVERSION mg/dL Specimen (Source) Anatomical Collection Method Collection Time Re ceived Time Location / / Volume Laterality 10/27/1997 12:42 PM RENOVATOR MACHINE OPERATOR Curly Mead MD LAB_1 Performing Organization Address City/State/ZIP Code Phon e Number HP CONVERSION Magnesium (10/27/1997 12:42 PM RENOVATOR MACHINE OPERATOR) athologist Signature Magnesium 2.1 1.5 - 2.4 HP CONVERSION mg/dL Specimen (Source) Anatomical Collection Method Collection Time Re ceived Time Location / / Volume Laterality 10/27/1997 12:42 PM RENOVATOR MACHINE OPERATOR Curly Mead MD LAB_1 Performing Organization Address City/State/ZIP Code Phon e Number HP CONVERSION Glucose (10/27/1997 12:42 PM RENOVATOR MACHINE OPERATOR) athologist Signature Lab Glucose 84 60 - 110 HP CONVERSION mg/dL Specimen (Source) Anatomical Collection Method Collection Time Re ceived Time Location / / Volume Laterality 10/27/1997 12:42 PM RENOVATOR MACHINE OPERATOR Curly Mead MD LAB_1 Performing Organization Address City/State/ZIP Code Phon e Number HP CONVERSION Anc Result Conversion Default Order (06/02/1997 11:16 AM CDT) Anatomical Region Laterality Modality Other Specimen (Source) Anatomical Location Collection Method / Collectio n Time Received Time / Laterality Volume Narrative 06/02/1997 11:16 AM CDT CLINICAL DATA: ?F/U 2ND MT HEAD RESEC FINDINGS: ?PRIOR FILMS UNAVAILABLE FOR COMPAR STORM. ?BY HISTORY AND APPEARANCE, THERE H BEEN RESECTION OF THE ARTICULAR ?ASPECT OF THE DISTAL SECOND METATA RSAL. ??SLIGHT INDISTINCTNESS OF ?THE RESECTED MARGINS BUT THIS MAY SIMPLY BE POSTOPERATIVE. ??ON THE ?AP AND OBLIQUE VIEW, THE ALIGNMENT AT THE SECOND MTP JOINT APPEARS ?SATISFACTORY; HOWEVER, ON THE ALEYDA DING LATERAL VIEW, THERE APPEARS ?TO BE DORSAL POSITION OF THE SECON D DIGIT. ??DEGENERATIVE CHANGE ?ABOUT THE FIRST MTP JOINT IS PRESE NT WELL TO MILD DEGREE THE ?THIRD AND FIFTH MTP JOINTS. ??MILD SPURRING OFF THE POSTERIOR BASE OF ?THE CALCANEUS. ??FINDINGS CAN BE C ORRELATED WITH FOLLOW-UP. TECH-ID : ? YY TRANS-ID: ? QTR Procedure Note Dionicio Sampson - 10/25/2016Formatting o f this note might be different from the original. CLINICAL DATA: F/U 2ND MT HEAD RESEC FINDINGS: PRIOR FILMS UNAVAILABLE FOR COMPARISON. BY HISTORY AND APPEARANCE, THERE HAS BE EN RESECTION OF THE ARTICULAR ASPECT OF THE DISTAL SECOND METATARSAL. SLIGHT INDISTINCTNESS OF THE RESECTED MARGINS BUT THIS MAY SIMPL Y BE POSTOPERATIVE. ON THE AP AND OBLIQUE VIEW, THE ALIGNMENT AT T HE SECOND MTP JOINT APPEARS SATISFACTORY; HOWEVER, ON THE STANDING LATERAL VIEW, THERE APPEARS TO BE DORSAL POSITION OF THE SECOND DIG IT. DEGENERATIVE CHANGE ABOUT THE FIRST MTP JOINT IS PRESENT WELL TO MILD DEGREE THE THIRD AND FIFTH MTP JOINTS. MILD SPURRI NG OFF THE POSTERIOR BASE OF THE CALCANEUS. FINDINGS CAN BE CORRELAT ED WITH FOLLOW-UP. TECH-ID : YY TRANS-ID: QTR Lui Garcia Kendra DPM RAD GD FL Arthrogram Ankle Lt (02/03/1997 2:30 PM CDT) Anatomical Region Laterality Modality Lower Extremity, Ankle Other Specimen (Source) Anatomical Location Collection Method / Collectio n Time Received Time / Laterality Volume Narrative 02/03/1997 2:30 PM CDT CLINICAL DATA: ?RT FOOT ARTH/EVAL CAPSULARY TEAR FINDINGS: URA AN ARTHROGRAM WAS PERFORMED IN THE RADI OLOGY DEPARTMENT BY THE PODIATRY OR ORTHOPEDIC DEPARTMENT. ??NO RADIOLOGIST INTERPRETATION WAS REQUESTED. TECH-ID : TRANS-ID: READ PROVIDER: ?1800 ??- NONPHYSICI AN X DEPT. SIGNATURE SIGNOFF PROVIDER: 1800 ??- NONPHYSICIAN X DEPT. SIGNATURE Procedure Note Conversion, Imr - 10/25/2016Formatting o f this note might be different from the original. CLINICAL DATA: RT FOOT ARTH/EVAL CAPSULARY TEAR FINDINGS: URA AN ARTHROGRAM WAS PERFORMED IN THE RADI OLOGY DEPARTMENT BY THE PODIATRY OR ORTHOPEDIC DEPARTMENT. NO R ADIOLOGIST INTERPRETATION WAS REQUESTED. TECH-ID : TRANS-ID: READ PROVIDER: 1800 - NONPHYSICIAN X DE PT. SIGNATURE SIGNOFF PROVIDER: 1800 - NONPHYSICIAN X DEPT. SIGNATURE Lui Garcia Kendra DPM RAD FL Anc Result Conversion Default Order (12/03/1996 10:38 AM CDT) Anatomical Region Laterality Modality Other Specimen (Source) Anatomical Location Collection Method / Collectio n Time Received Time / Laterality Volume Narrative 12/03/1996 10:38 AM CDT CLINICAL DATA: ?PAINFUL 2ND MET FINDINGS: ?MEDIAL SUBLUXATION OF THE SECOND T OE RELATIVE TO THE DISTAL ?ARTICULAR ASPECT OF THE SECOND MET ATARSAL OF APPROXIMATELY 4 ?MM. ??THERE IS ALSO SLIGHT FLATTEN ING OF THE ARTICULAR ASPECT ?DISTALLY OF THE SECOND METATARSAL WHICH MAY BE A NORMAL ?VARIANT, BUT SIMILAR CHANGE MAY BE ASSOCIATED WITH AVASCULAR ?NECROSIS EVEN THOUGH NO SCLEROSIS OR OTHER ABNORMALITY IS ?SEEN. ??THIS COULD BE CORRELATED W ITH FOLLOW-UP. ??MILD ?POSTERIOR PLANTAR SURFACE CALCANEA L SPURRING. TECH-ID : ? 25 TRANS-ID: ? LAP Procedure Note Dionicio Sampson - 10/25/2016Formatting o f this note might be different from the original. CLINICAL DATA: PAINFUL 2ND MET FINDINGS: MEDIAL SUBLUXATION OF THE SECOND TOE RE LATIVE TO THE DISTAL ARTICULAR ASPECT OF THE SECOND METATARS AL OF APPROXIMATELY 4 MM. THERE IS ALSO SLIGHT FLATTENING OF THE ARTICULAR ASPECT DISTALLY OF THE SECOND METATARSAL WHICH MAY BE A NORMAL VARIANT, BUT SIMILAR CHANGE MAY BE ASSO CIATED WITH AVASCULAR NECROSIS EVEN THOUGH NO SCLEROSIS OR OT HER ABNORMALITY IS SEEN. THIS COULD BE CORRELATED WITH FOL LOW-UP. MILD POSTERIOR PLANTAR SURFACE CALCANEAL SPU RRING. TECH-ID : 25 TRANS-ID: LAP Paul QUIÑONESM RAD GD documented in this encounter Visit Diagnoses Not on filedocumented in this encounter Care Teams Cement Tile Maker Relationship Specialty Start Date End Date Md Jauregui MD PCP - General 11/18/10 04/02/15 [place] [address] documented as of this encounter
--- OUTSIDE RECORDS SUMMARY | 2022-04-16 19:45 | XMS_ITS | Encounter Summary ---
:1955 Author Organization [facility] Address [address] [address] Care Team Providers Name Role Phone Md YAKELIN Jauregui Primary Care Provider Encounter Details Date Type Department Care Team Description 01/16/2009 Office Visit [facility] [address] Ros[address] Gardner DPM Podiatric MedSurg [address] [place] [address] [place], [place] [address] [phone] Social History Tobacco Use Types Packs/Day Years Used Date Smoking Tobacco: Never Assessed Sex Assigned at Date Recorded Not on file documented as of this encounter Progress Notes Lui Gardner DPM - 01/16/2009 12:01 AM CDT Progress Notes signed by Lui Gardner DPM at 01/16/09 1654 Author: Lui Gardner DPM Service: (none) Author Type: Physician Filed: 12/08/10 1345 Note Time: 01/16/09 0001 Status: Signed Nutritionists: Lui Gardner DPM (Resource) NAME: VALERI ROJAS MR#: [id number] ACCT: [id number] VISIT: [id number] DICTATING CLINICIAN: LUI GARDNER DPM CONFIRM #: [id number] LOC: 439 CLINIC PROGRESS NOTE DATE OF VISIT: 01/16/2009 SUBJECTIVE: Patient presents to follow up on strapping applied at the last visit. It was somewhat helpful. She left it on 4 days. She states her pain went from 7 out of 10 to 5. She feels like the problem is more in her ankle, and she was tried in elastic ankle support. She is aching at night, and she points to the talonavicular area and the tuberosity navicular. The right and left feet feel about equal. She also notes that heavy blankets at night push her feet into a position that aggravates it. OBJECTIVE: Pain is noted on palpation of talonavicular joint, bilateral, and navicular cuneiform joint. X-rays ordered and interpreted by myself indicate joint space narrowing, subchondral sclerosis, and osteophytic lipping of the 1st naviculocuneiform joint. Also degenerative changes in the 2nd and 3rd MTP joints, left. There are postsurgical changes, 2nd metatarsal head, right foot, and degenerative changes in the 3rd MTP joint. ASSESSMENT: Osteoarthritis. PLAN: Reviewed her response to the strapping. Her orthotics are in reasonable condition, so she will use them. We discussed the radiographic changes and the natural history of osteoarthritis. We discussed the indications for arthrodesis. Answered all questions. SHP:[id number] C: 01/16/09 11:43 CONFIRM #: [id number] documented in this encounter Plan of Treatment Not on filedocumented as of this encounter Procedures Procedure Name Priority Date/Time Associated Diagnosis Comme nts XR FOOT RT 3+ VIEWS Routine 01/16/2009 10:46 AM R esults for this CDT procedure are i n the results section. XR FOOT LT 3+ VIEWS Routine 01/16/2009 10:45 AM R esults for this CDT procedure are i n the results section. documented in this encounter Results XR Foot Rt 3+ Views (01/16/2009 10:46 AM CDT) Anatomical Region Laterality Modality Lower Extremity, Foot Other Specimen (Source) Anatomical Location Collection Method / Collectio n Time Received Time / Laterality Volume Narrative 01/16/2009 10:46 AM CDT RIGHT FOOT: ??Degenerative changes of the 2nd and 3rd metatarsophalangeal joint. ??No evidence of acute fractures or dislocations. ??Spurring of the calcaneu s at the insertion of the plantar fascia. LEFT FOOT: ??Joint space narrowing and h ypertrophic changes of the 2nd and 3rd metatarsophalangeal joints, like ly represents osteoarthritis. Lateral subluxation of the 3rd metatarsa l. ??No evidence of acute fractures or dislocations. ??Spurring of the calcaneus at the insertion of the plantar fascia. [id number]/akshat Dictating ANNABELLE MANNING Radiologist Procedure Note Annabelle Jeronimo MD - 10/25/2016For matting of this note might be different from the original. RIGHT FOOT: Degenerative changes of the 2nd and 3rd metatarsophalangeal joint. No evidence o f acute fractures or dislocations. Spurring of the calcaneus at the insertion of the plantar fascia. LEFT FOOT: Joint space narrowing and hyp ertrophic changes of the 2nd and 3rd metatarsophalangeal joints, like ly represents osteoarthritis. Lateral subluxation of the 3rd metatarsa l. No evidence of acute fractures or dislocations. Spurring of t he calcaneus at the insertion of the plantar fascia. [id number]/akshat Dictating ANNABELLE MANNING Radiologist Lui Gardner DPM RAD GD XR Foot Lt 3+ Views (01/16/2009 10:45 AM CDT) Anatomical Region Laterality Modality Lower Extremity, Foot Other Specimen (Source) Anatomical Location Collection Method / Collectio n Time Received Time / Laterality Volume Narrative 01/16/2009 10:45 AM CDT RIGHT FOOT: ??Degenerative changes of the 2nd and 3rd metatarsophalangeal joint. ??No evidence of acute fractures or dislocations. ??Spurring of the calcaneu s at the insertion of the plantar fascia. LEFT FOOT: ??Joint space narrowing and h ypertrophic changes of the 2nd and 3rd metatarsophalangeal joints, like ly represents osteoarthritis. Lateral subluxation of the 3rd metatarsa l. ??No evidence of acute fractures or dislocations. ??Spurring of the calcaneus at the insertion of the plantar fascia. [id number]/joyced Dictating ANNABELLE MANNING Radiologist Procedure Note Annabelle Jeronimo MD - 10/25/2016For matting of this note might be different from the original. RIGHT FOOT: Degenerative changes of the 2nd and 3rd metatarsophalangeal joint. No evidence o f acute fractures or dislocations. Spurring of the calcaneus at the insertion of the plantar fascia. LEFT FOOT: Joint space narrowing and hyp ertrophic changes of the 2nd and 3rd metatarsophalangeal joints, like ly represents osteoarthritis. Lateral subluxation of the 3rd metatarsa l. No evidence of acute fractures or dislocations. Spurring of t he calcaneus at the insertion of the plantar fascia. [id number]/dkd Dictating ANNABELLE MANNING Radiologist Lui H Kendra DPM RAD GD documented in this encounter Visit Diagnoses Not on filedocumented in this encounter Care Teams Ancillary Services Manager Relationship Specialty Start Date End Date Md Jauregui MD PCP - General 11/18/10 04/02/15 [place] [address] documented as of this encounter
--- OUTSIDE RECORDS SUMMARY | 2022-04-16 19:45 | XMS_ITS | Encounter Summary ---
:1955 Author Organization [facility] Address [address] [place] [address] Care Team Providers Name Role Phone Vanessa Mills MD Primary Care Provider Reason for Visit Reason Comments RESULTS, TEST Encounter Details Date Type Department Care Team Description 05/08/2015 Telephone [facility] Arnulfo Waite MD RESULTS, TEST [address] [place] [address] [place] [address] [phone] (Wo rk) Social History Tobacco Use Types Packs/Day Years Used Date Smoking Tobacco: Never Assessed Sex Assigned at Date Recorded Not on file documented as of this encounter Nursing Notes Ciro Spencer RN - 05/08/2015 11:23 AM CDT Order faxed over to [facility] for injection and MRI copy sent to patient Ciro Spencer RN - 05/08/2015 9:57 AM CDT Pt is calling for results from MRI at [facility] on 05/04/15 and whether an injection would be beneficial. Please call with results. Thank you. documented in this encounter Plan of Treatment Not on filedocumented as of this encounter Visit Diagnoses Not on filedocumented in this encounter Care Teams Yarn Sorter Relationship Specialty Start Date End Date Vanessa Mills MD PCP - General 04/03/[address] [place] [address] documented as of this encounter
--- OUTSIDE RECORDS SUMMARY | 2022-04-16 19:45 | XMS_ITS | Encounter Summary ---
:1955 Author Organization [facility] Address [address], [place] [address] Care Team Providers Name Role Phone Md YAKELIN Jauregui Primary Care Provider Encounter Details Date Type Department Care Team Description 04/11/2010 PN Conversion Only CONV BANK Social History Tobacco Use Types Packs/Day Years Used Date Smoking Tobacco: Never Assessed Sex Assigned at Date Recorded Not on file documented as of this encounter Plan of Treatment Not on filedocumented as of this encounter Visit Diagnoses Not on filedocumented in this encounter Care Teams Panel Installer Relationship Specialty Start Date End Date Md Jauregui MD PCP - General 11/18/10 04/02/15 [place], [place] [id number] documented as of this encounter
--- OUTSIDE RECORDS SUMMARY | 2022-04-16 19:45 | XMS_ITS | Encounter Summary ---
:1955 Author Organization [facility] Address [address], [place] [address] Care Team Providers Name Role Phone Md YAKELIN Jauregui Primary Care Provider Encounter Details Date Type Department Care Team Description 12/15/2010 PN Conversion Only CONVERSION CONVERSION Md Jauregui MD [place], [place] [address] Social History Tobacco Use Types Packs/Day Years Used Date Smoking Tobacco: Never Assessed Sex Assigned at Date Recorded Not on file documented as of this encounter Plan of Treatment Not on filedocumented as of this encounter Visit Diagnoses Not on filedocumented in this encounter Care Teams Marble Helper Relationship Specialty Start Date End Date Md Jauregui MD PCP - General 11/18/10 04/02/15 [place], [place] [address] documented as of this encounter
--- OUTSIDE RECORDS SUMMARY | 2022-04-16 19:45 | XMS_ITS | Encounter Summary ---
:1955 Author Organization [employer] [facility] Address [address], [place] [address] Care Team Providers Name Role Phone Md YAKELIN Jauregui Primary Care Provider Encounter Details Date Type Department Care Team Description 01/02/2009 Office Visit [facility] [address] Gardner DPM Podiatric MedSurg [address] [place] [address] [place], [place] [address] [phone] Social History Tobacco Use Types Packs/Day Years Used Date Smoking Tobacco: Never Assessed Sex Assigned at Date Recorded Not on file documented as of this encounter Progress Notes Lui Gardner DPM - 01/02/2009 12:01 AM CDT Progress Notes signed by Lui Gardner DPM at 01/06/09 0932 Author: Lui Gardner DPM Service: (none) Author Type: Physician Filed: 12/08/10 1326 Note Time: 01/02/09 0001 Status: Signed Electrical Lineworker: Lui Gardner DPM (Resource) NAME: VALERI ROJAS MR#: [id number] ACCT: [id number] VISIT: [id number] DICTATING CLINICIAN: LUI GARDNER DPM CONFIRM #: [id number] LOC: 439 CLINIC PROGRESS NOTE DATE OF VISIT: 01/02/2009 SUBJECTIVE: 53-year-old self-referred with pain both feet. Symptoms have been present for 3-4 months. She is walking 2-3 miles a day with a new dog. She notes that going barefoot makes the problem worse. She states that there are 3 areas that are a problem. 1 is on top and she points to the dorsal midfoot, her arch and she points to the medial aspect of each arch, and her ankles and she points to the ankle joints. She occasionally has pain at night. She got orthotics in 1997 for heel pain and she wore them about 6 months and the pain went away. She recently tried those again. She forgot to bring those in today. PAST MEDICAL HISTORY: Hypothyroidism, breast cancer, depression. SURGICAL HISTORY: Partial 2nd metatarsal head resection in 1996, bilateral mastectomy with reconstruction x2, thyroidectomy, hysterectomy, appendectomy, carpal tunnel release. MEDICATIONS: Reviewed and updated in Last[employer], found in the health profile. ADR/ALLERGIES: REVIEWED AND UPDATED IN [employer]ST[employer], FOUND IN THE HEALTH PROFILE. NO LATEX SENSITIVITY. SOCIAL HISTORY: Patient is , nonsmoker, social alcohol. She is not employed. OBJECTIVE: VS: Ht: 5 ft. 5 in. Wt: 188 lb. Pleasant, middle-aged female. Skin is intact both feet. Well-healed scar present dorsal to the 2nd MTP joint, right foot. Hair is present and symmetrical. Nails are normal. She has palpable pulses. No edema or varicosities. Pain is noted on palpation at the insertion of the plantar fascia bilateral. The fascia itself is nontender. There is some tenderness on compression of the midfoot and along the tibialis anterior on the left. She has satisfactory ankle, subtalar, and midtarsal joint motion. On stance, she has fairly symmetrical alignment. ASSESSMENT: Bilateral foot pain. PLAN: Reviewed the clinical findings. Suggested temporarily supporting her foot function, with a strapping to see if it is something an orthotic should be capable of managing. She will bring her old orthotics with her at the next visit. SHP:[id number] C: 01/02/09 20:29 CONFIRM #: [id number] documented in this encounter Plan of Treatment Not on filedocumented as of this encounter Visit Diagnoses Not on filedocumented in this encounter Care Teams Transformer Builder Relationship Specialty Start Date End Date Md Jauregui MD PCP - General 11/18/10 04/02/15 [place] [address] documented as of this encounter
--- OUTSIDE RECORDS SUMMARY | 2022-04-16 19:45 | XMS_ITS ---
:1955 Author Name Lluvia Mills Care Team Providers Name Role Phone Lluvia Mills Unavailable Unavailable PROBLEMS Type Condition ICD9-CM Code [id number] Code Onset Condition SNO MED Code Dates Status Problem Radiculopathy, M54.16 Active 01801 6005 lumbar region ALLERGIES Substance Reaction Event Type Date Status Morphine Sulfate Unknown Drug Allergy Feb, Active ENCOUNTERS Encounter Location Date Diagnosis [facility] [address] Feb, R adiculopathy, lumbar and [facility] [address] [facility] [place] M54.16 [place] [address] [facility] [address] [place] [address] [address] [place] Feb, [facility] [address] [place] [address] [facility] [address] [place] [address] N SHAKIRA 07 Feb, 2022 [facility] [address] [place] [address] IMMUNIZATIONS No Known Immunizations SOCIAL HISTORY Never Assessed REASON FOR REFERRAL FUNCTIONAL STATUS PLAN OF CARE VITAL SIGNS MEDICATIONS Medication Instructions Dosage Frequency Start Date End Date Duration S tatus Fluoxetine Active Meloxicam Active Losartan Potassium Activ e Lisinopril Active PROCEDURES Procedure Date Ordered Result Body Site Dexamethasone/Decadron 1ml March 14, 2022 Bupivicaine 0.5% mg/ml March 14, 2022 Spinal Support Tray March 14, 2022 [place] only Sterile any size each March 14, 2022 Gloves, size 8 March 14, 2022 5 cc - 19 cc gauge syringe March 14, 2022 Transforaminal L or S single March 14, 2022 RESULTS No Results REASON FOR VISIT Insurance Providers [facility] Member Patient Patient Patient Patient Patient Subscriber Subscriber Subscriber Group Insurance Plan Plan Plan Plan ID Relationship Address Phone Name Date of ID Name Date of No Type Insurance Insurance Insurance Coverage to Subscriber Address Phone Name Dates Medicare National [phone] Medicare self Valeri [id number] Part [place] [address] Part B [employer] [address] [place] [address] [facility] [phone] [facility] self Valeri [id number] Supplement [id number] [facility] Supplement [place] [id number] [facility] [address] MEDICAL (GENERAL) HISTORY Type Description Date Medical History Arthritis Medical History Cancer Medical History Depression Medical History Thyroid Problems Surgical History Right Hip Surgery Surgical History Left Shoulder Surgery
--- OUTSIDE RECORDS SUMMARY | 2022-04-16 19:45 | XMS_ITS | Encounter Summary ---
:1955 Author Organization [facility] Address [address] [place] [address] Care Team Providers Name Role Phone Vanessa Mills MD Primary Care Provider Reason for Visit Reason Comments Back Pain Encounter Details Date Type Department Care Team Description 05/03/2015 Surgical Consult [facility] Arnulfo Alexander Low back pain CENTER MD Maryellen radiating to right [address] dawson (Primary Dx) [place] [address] [id number] Social History Tobacco Use Types Packs/Day Years Used Date Smoking Tobacco: Never Assessed Sex Assigned at Date Recorded Not on file documented as of this encounter Patient Instructions Patient InstructionsNeel Tse MA - 05/03/2015 1:[address] Arnulfo Alexander MD Orthopaedic Spine Please contact Ronda for all administrative questions at [phone] Please contact the Spine Nurse for all medical related questions at [phone] Office Hours: Friday-Friday and AM Medication Requests:Prescriptions are not filled on Fridays, Weekends, or on Weekdays after 3:00PM For all medication refills: Request a refill using MyChart or contact your Pharmacy Your Provider would like you to schedule a Follow Up as needed with Dr. Alexander Appointment Scheduling: Can be done at the front desk auxiliary or by calling our main number [phone] For any orders received please check with your insurance provider for any coverage issues documented in this encounter Progress Notes Arnulfo Alexander MD - 05/03/2015 5:20 PM CDT Progress Notes signed by Arnulfo Alexander MD at 05/04/1557 Author: Arnulfo Alexander MD Service: (none) Author Type: Physician Filed: 05/04/1540 Note Time: 05/03/151749 Status: Signed Typer: Arnulfo Alexander MD (Physician) NAME: VALERI ROJAS MR#: [id number] CSN: [id number] AUTHENTICATING CLINICIAN: Arnulfo Alexander MD CONFIRM #: [id number] LOC: 711 CLINIC PROGRESS NOTE DATE OF VISIT: 05/03/2015 : 1955 CHIEF COMPLAINT: Radicular right leg pain. 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 In 10/2014 Valeri slipped and fell heavily on ice. She very quickly started feeling right lower backpain which then progressed to right-sided posterolateral leg pain extending to the foot and ankle. She has been attending physical therapy at [facility] in [place] and has very definitely found the therapy there to be quite helpful but unfortunately her symptoms have persisted since November. Back in 2004 I note that she had a lumbar epidural steroid injection obtained at [facility] at the L4-5 level. Valeri states today that her recollection was that that epidural was quite helpful. She has not had any imaging of her lumbar spine since 2004. PAST MEDICAL HISTORY: Positive for a history of breast cancer which has been stable since for the past 8 years. Her weighthas been stable. REVIEW OF SYSTEMS: Positive for right leg pain as discussed. No significant axial back pain at this time. The leg pain is greater than the back pain. No bowel or bladder changes. No skin rashes. No fevers or chills. PHYSICAL EXAM: Physical exam today shows she presents in an extremely credible and reasonable fashion. Negative Eric signs. She stands erect. Palpation of the lumbar spine shows no focal areas of tenderness. She is a little bit guarded with her spinal motion but is able to forward flex to 50 degrees, back [id number] degrees. She can heel and toe stand normally. In the sitting position she has 5/5 distal strengthand normal light touch. Straight leg raising is mildly positive. We will obtain updated MRI imaging as her last scan goes back to 2004 especially in the setting of aprevious history of breast cancer. At this point I would anticipate seeing a recurrent disk herniation probably at L4-5 impinging the right L5 nerve root based on her pattern of pain. If that is the case we will plan on adding a lumbar epidural steroid injection performed as a right L5-S1 transforaminal epidural to better approach the exiting L5 nerve root. She should of course continue on with physical therapy at [facility]. I would then want to see her back 2 weeks after the injection to see how sheis doing. She will contact me by telephone after her MRI just to verify that the MRI confirms what we expect to see and no other additional findings. FINAL ASSESSMENT: Recurrent radicular right leg pain. CC: [facility] FAX: [phone] DAA:[place] C: R:05/03/15 17:27 CONFIRM#:[id number] documented in this encounter Plan of Treatment Not on filedocumented as of this encounter Visit Diagnoses Diagnosis Low back pain radiating to right leg - P rimary Lumbago documented in this encounter Care Teams International Flight Attendant Relationship Specialty Start Date End Date Vanessa Mills MD PCP - General 04/03/15 [address] [facility] [address] [facility] [place] [address] documented as of this encounter
--- OUTSIDE RECORDS SUMMARY | 2022-04-16 19:45 | XMS_ITS | Encounter Summary ---
:1955 [facility] Address [address], [place] [address] Care Team Providers Name Role Phone Md YAKELIN Jauregui Primary Care Provider Encounter Details Date Type Department Care Team Description 12/30/2008 PN Conversion Only EXPLOSIVES HANDLER [address] [place] [address] Social History Tobacco Use Types Packs/Day Years Used Date Smoking Tobacco: Never Assessed Sex Assigned at Date Recorded Not on file documented as of this encounter Plan of Treatment Not on filedocumented as of this encounter Visit Diagnoses Not on filedocumented in this encounter Care Teams Sed Middle [employer] Teacher Relationship Specialty Start Date End Date Md Jauregui MD PCP - General 11/18/10 04/02/15 [address] [place], [place] [id number] documented as of this encounter
--- OUTSIDE RECORDS SUMMARY | 2022-04-16 19:45 | XMS_ITS | Encounter Summary ---
:1955 Author [facility] Address [address] [place] [address] Care Team Providers Name Role Phone Vanessa Mills MD Primary Care Provider Encounter Details Date Type Department Care Team Description 06/01/2015 Imaging [facility] [address] [place], [place] [address] Social History Tobacco Use Types Packs/Day Years Used Date Smoking Tobacco: Never Assessed Sex Assigned at Date Recorded Not on file documented as of this encounter Plan of Treatment Not on filedocumented as of this encounter Procedures Procedure Name Priority Date/Time Associated Diagnosis Comme nts XR PELVIS 1-2 VIEWS Routine 05/31/2015 2:10 PM Pain Re sults for this CDT procedure are i n the results section. documented in this encounter Results XR Pelvis 1-2 Views (05/31/2015 2:10 PM CDT) Anatomical Region Laterality Modality Pelvis Other Specimen (Source) Anatomical Location Collection Method / Collectio n Time Received Time / Laterality Volume Narrative 06/05/2015 7:33 AM CDT Plain film x-rays of the pelvis. AP pelvis shows no significant degenerat jasiel changes within the hips. No fractures or lytic lesions are seen. Procedure Note Arnulfo Alexander MD - 02/02/2016Forma tting of this note might be different from the original. Plain film x-rays of the pelvis. AP pelvis shows no significant degenerat jasiel changes within the hips. No fractures or lytic lesions are seen. Arnulfo Alexander MD RAD GD documented in this encounter Visit Diagnoses Diagnosis Pain Generalized pain documented in this encounter Care Teams Wood Milling Machine Tender Relationship Specialty Start Date End Date Vanessa Mills MD PCP - General 04/03/[address] [place] [address] documented as of this encounter
--- OUTSIDE RECORDS SUMMARY | 2022-04-16 19:45 | XMS_ITS | Encounter Summary ---
:1955 Author Organization [facility] Address [address] [place] [address] Care Team Providers Name Role Phone Md YAKELIN Jauregui Primary Care Provider Encounter Details Date Type Department Care Team Description 04/11/2010 Office Visit [facility] [address] Ear, Davey Villa MD Nose, and Throat [address] [facility] [address] [place] [address] [place], [place] [id number] [phone] Social History Tobacco Use Types Packs/Day Years Used Date Smoking Tobacco: Never Assessed Sex Assigned at Date Recorded Not on file documented as of this encounter Progress Notes Oleg Villa MD - 04/11/2010 12:01 AM CDT Progress Notes signed by Oleg Villa MD at 04/15/102027 Author: Oleg Villa MD Service: (none) Author Type: Physician Filed: 12/09/10 0049 Note Time: 04/11/10 0001 Status: Signed Commissions Coordinator: Oleg Villa MD (Physician) NAME: VALERI ROJAS MR#: [id number] ACCT: [id number] VISIT: [id number] DICTATING CLINICIAN: Oleg Villa MD CONFIRM #: [id number] LOC: 428 CLINIC PROGRESS NOTE DATE OF VISIT: 04/11/2010 : 1955 CHIEF COMPLAINT: Swollen glands and hoarseness. HISTORY OF PRESENT ILLNESS: This is a pleasant 55-year-old female who comes to us for a second opinion on swollen glands and hoarseness. The patient was seen earlier this summer by a physician in [place] for swelling in the right neck. The patient reports that she says that she feels like her right neck intermittently gets swollen and she feels like there is a band or cord in the floor of her mouth. This has been going off and on since September. The patient says that sometimes she will get pain in this area and notices it more with eating certain foods such as [place] or chocolate. She says that she has never gotten any foul taste from the floor of the mouth or purulent discharge. She has never been told she has had any stones. The patient did have a CT scan back in December of the neck which did not demonstrate any obvious pathology. The patient says that this is not all the time and it usually will happen at least once a week. On a separate issue, the patient says that she feels like her voice does tend to get strained on occasion. She says it is hoarse. She is often clearing her throat. When asked, the patient does drink several caffeinated beverages throughout the day including soda, coffee and Teem which she does think is caffeinated. No other complaints. No fevers, sweats, chills, weight loss or weight gain. She does have a history of thyroid surgery which was clear for cancer but also does have a history of breast cancer. PHYSICAL EXAMINATION: GENERAL: Patient is well-appearing. In no acute distress. Voice quality is good. HEAD AND FACE: Skin inspection, head and face, reveals no real lesions. Facial strength is intact. Extraocular muscles intact. OTOSCOPY: Reveals normal-appearing tympanic membranes. ANTERIOR RHINOSCOPY: Reveals straight nasal septum. Turbinates are non- hypertrophied. ORAL CAVITY/OROPHARYNX: Lips, teeth and gums are within normal limits. Posterior pharynx does demonstrate some cobble stoning. INDIRECT MIRROR LARYNGOSCOPY: I did perform indirect mirror laryngoscopy. I had an excellent view of the endolarynx. 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 Her tonsils are not enlarged. I did palpate the floor of her mouth which she does have somewhat prominent submandibular ducts bilaterally. They do discharge a large amount of clear fluid. The submandibular glands are palpated bimanually. They are not enlarged. NECK EXAMINATION: No palpable lymphadenopathy. RESPIRATORY: Breathing is unlabored. PSYCH: Mood and affect are appropriate. SKIN: She has a well-healed thyroidectomy incision. DATA: I did personally review the patient's CT scan dated December 2009. In this, I do not see any stones in the floor of mouth. She has a surgically-absent thyroid. I do not see any other abnormalities. ASSESSMENT AND PLAN: Valeri Rojas is a pleasant 55-year-old female with the following issues: 1. Floor of mouth pain. I assume that this is likely secondary to some occasional backup of secretions and causing some inflammation of the submandibular gland. I do not see any stones today. I did encourage her to continue conservative measures including adequate hydration, lemon drops, and massage if she has any discomfort. 2. Throat hoarseness. I think that she does have some mild reflux issues. This is evident on examination today. I started her on omeprazole as well as reflux precautions and encouraged her to cut down on caffeine. I gave her my card and she will call if there are any problems. RDW:MEDQ C: CONFIRM #: [id number] documented in this encounter Plan of Treatment Not on filedocumented as of this encounter Visit Diagnoses Not on filedocumented in this encounter Care Teams Digital Court Reporter Relationship Specialty Start Date End Date Md Jauregui MD PCP - General 11/18/10 04/02/15 [place] [address] documented as of this encounter
--- OUTSIDE RECORDS SUMMARY | 2022-04-16 19:45 | XMS_ITS | Encounter Summary ---
:1955 Author Organization [email or web address] Address [address] [place] [address] Care Team Providers Name Role Phone Vanessa Mills MD Primary Care Provider Reason for Visit Reason Comments Back Pain Encounter Details Date Type Department Care Team Description 05/31/2015 Office Visit [facility] Arnulfo Alexander of lumbar CENTER MD Maryellen intervertebral disc [address] [place] [address] (Primary Dx) [place] [phone] Social History Tobacco Use Types Packs/Day Years Used Date Smoking Tobacco: Never Assessed Sex Assigned at Date Recorded Not on file documented as of this encounter Patient Instructions Patient InstructionsNeel Tse MA - 05/31/2015 4:[address] Arnulfo Alexander MD Orthopaedic Spine Please contact Ronda for all administrative questions at [phone] Please contact the Spine Nurse for all medical related questions at [phone] Office Hours: Friday-Friday and AM Medication Requests:Prescriptions are not filled on Fridays, Weekends, or on Weekdays after 3:00PM For all medication refills: Request a refill using MyChart or contact your Pharmacy Your Provider would like you to schedule a Follow Up as needed with Dr. Alexander Appointment Scheduling: Can be done at the waterfront director or by calling our main number [phone] For any orders received please check with your insurance provider for any coverage issues documented in this encounter Progress Notes Arnulfo Alexander MD - 05/31/2015 2:12 PM CDT Progress Notes signed by Arnulfo Alexander MD at 06/05/15 0736 Author: Arnulfo Alexander MD Service: (none) Author Type: Physician Filed: 06/05/1536 Note Time: 06/02/151445 Status: Signed Hatchery Employee: Arnulfo Alexander MD (Physician) NAME: VALERI ROJAS MR#: [id number] CSN: [id number] AUTHENTICATING CLINICIAN: Arnulfo Alexander MD CONFIRM #: [id number] LOC: 711 CLINIC PROGRESS NOTE DATE OF VISIT: 05/31/2015 : 1955 CHIEF COMPLAINT: Follow up lumbar disk protrusion. HPI: Valeri is an extremely pleasant 60-year-old woman who I have seen in the past with right leg pain. MRI imaging obtained at [facility] confirms a disk bulge at L4-5. We sent her for a lumbar epidural at [facility] and she is seen today for followup review 2 weeks after the injection. Firstly, Valeri reports that she felt extremely good for approximately a 3-day period of time following the L5-S1 epidural intended to best capture the L5 nerve root. For the first time in 6 months shewas able to sleep well. After day 3 she noticed a gradual return of right leg pain although it is primarily felt mostly way up high in the right anterior groin, most compatible with the L1 and L2 nerveroot distributions. She is not describing any posterior leg pain which would be more typical of the L5 root. Her lumbar spine MRI also shows considerable degenerative disk disease with marked loss of disk height and chronic endplate changes at L1-2 and a moderately large disk bulge up at that level as well. The predominance of her pain is in the right anterior groin and very proximal anterior thigh, once again consistent with that motion segment. Valeri's symptoms are bothersome enough that she would like to proceed with a second epidural. This will be set up as a right L1-2 transforaminal. If she gets good relief of her symptoms then she can just make a mental note of all that and follow up with me on an as-needed basis. If she does not find adequate improvement in her symptoms I want her to come back and visit with me. FINAL ASSESSMENT: L1-2 disk protrusion. ADDENDUM: If she has continuing pain then I would be inclined to get MRI imaging of the right hip to look for early degenerative changes there. IMAGING: X-rays are ordered and independently reviewed. Plain film x-rays of the pelvis. AP pelvis shows no significant degenerative changes within the hips. No fractures or lytic lesions are seen. We will proceed with the above-noted lumbar epidural. She will follow up with me if she does not find the expected results. TT: 25 CT: 20 DAA:TH C: R:06/01/15 07:42 CONFIRM#:[id number] documented in this encounter Plan of Treatment Not on filedocumented as of this encounter Visit Diagnoses Diagnosis Displacement of lumbar intervertebral di sc (HRC) - Primary Displacement of lumbar intervertebral di sc without myelopathy documented in this encounter Care Teams Kiln Worker Relationship Specialty Start Date End Date Vanessa Mills MD PCP - General 04/03/[address] [place] [address] documented as of this encounter
--- OUTSIDE RECORDS SUMMARY | 2022-04-16 19:45 | XMS_ITS | Encounter Summary ---
:1955 Author Organization [facility] Address [address], [place] [address] Care Team Providers Name Role Phone Unavailable Primary Care Provider Unavailable Encounter Details Date Type Department Care Team Description 04/05/1997 Hospital Encounter CONV [facility] Lui Gardner DPM [address] [place], [place] [id number] [address] [facility] Lui Gardner DPM [address] [place], [place] [id number] [place] [address] Social History Tobacco Use Types Packs/Day Years Used Date Smoking Tobacco: Never Assessed Sex Assigned at Date Recorded Not on file documented as of this encounter Procedure Notes Lui Gardner DPM - 04/12/1997 12:01 AM CDT OR Surgeon signed by Distribute Print And at 07/25/99 1200 Author: Lui Gardner DPM Service: (none) Author Type: Physician Filed: 12/05/10 0041 Note Time: 04/12/97 0000 Status: Signed Clay Processing Labourer: Lui Gardner DPM (Physician) [id number] OPERATIVE REPORT DATE OF PROCEDURE: 04/05/97 SURGEON: Kin Garay D.P.M. Troy Vargas, D.P.M. PREOPERATIVE DIAGNOSES: 1. Chronic metatarsalgia, second metatarsophalangeal joint, right foot. 2. Capsule tear, second metatarsophalangeal joint, right foot. POSTOPERATIVE DIAGNOSES: Same. PROCEDURE: Partial second metatarsal head resection, right foot. INDICATIONS FOR PROCEDURE: The patient had a gradual onset of pain associated with the second metatarsophalangeal joint. She was an aggressive walker and has been increasingly debilitated by the discomfort associated with this joint. She can recall no injury, and she has not responded to conservative treatment. The diagnosis was established with an arthrogram, which demonstrated extravasation of contrast plantar and lateral to the metatarsophalangeal joint. We discussed the repair procedure, including the postoperative course and possible complications to include (but not limited to) pain, infection, swelling, numbness, malposition, secondary deformity, transfer lesion, and the possibility that additional procedures may be required in the future. DESCRIPTION OF PROCEDURE: The patient was placed on the operating table in the supine position, and under intravenous sedation local anesthesia was accomplished utilizing a 1:1 mixture of 0.5% Marcaine plain and 2% lidocaine plain in a block of the second ray. The right foot and ankle were then prepped and draped in the usual aseptic manner. The foot was exsanguinated with an Esmarch bandage, and hemostasis was maintained with a pneumatic ankle cuff. Attention was directed to the dorsal aspect of the second metatarsophalangeal joint, where an S-shaped incision was made extending from the middle of the proximal phalanx to the proximal aspect of the second metatarsal head. By careful sharp and blunt dissection, the incision was deepened to the level of the deep fascia with care taken to retract vital structures, and superficial vessels were clamped, cut and cauterized as necessary. CONTINUATION OF OPERATIVE REPORT - Page 2 A linear incision was then made through the extensor digitorum longus tendon to the second digit, and the underlying capsule was incised and reflected from the metatarsal head. Upon arthrotomy, an abnormal amount of fluid and hypertrophic synovium were encountered. Inspection of the articular surface revealed a full-thickness chondral defect over the dorsal aspect of the metatarsal head involving approximately one-third of its surface. The corresponding defect was noted on the base of the proximal phalanx. On distraction of the digit, a disruption was noted of the plantar plate, which was very fragmented and shredded. Based on this finding, a partial second metatarsal head resection was performed with a sagittal saw at the level of the surgical neck. The osteotomy was then rounded and smoothed with a rasp and irrigated with sterile saline. The extensor tendon and capsule were repaired with simple interrupted and figure- of-eight sutures of 4-0 Vicryl. The skin margins were coapted and sutured with horizontal mattress sutures of 5-0 nylon. Dexamethasone phosphate 0.5 cc was injected postoperatively, and a sterile compression dressing was applied consisting of Betadine, Adaptic, 4 x 4s and 2-inch Dae. Digital perfusion was noted to be within normal limits immediately following release of the pneumatic ankle cuff. No problems or complications were encountered. The patient tolerated the procedure well and left the operating room for the recovery area in apparent good condition. SHP:mary cc: Kin Groves D.P.M. Signed: Lui Gardner D.P.M. HEAD CLEANER MAINTAINER documented in this encounter Miscellaneous Notes Miscellaneous - Lui Gardner DPM - 04/05/1997 10:05 AM CDT ICD-9-CM ICD-9-CM Narrative description Code ======== DIAGNOSES Principal: JT DERANGEMENT NOS-ANKLE 718.97 PROCEDURES Provider Date Principal: PART OSTECT-METATAR/TAR LUI GARDNER [id number] 77.88 CPT4 Principal: EXTENSIVE FOOT SURGERY 370[address] documented in this encounter Plan of Treatment Not on filedocumented as of this encounter Visit Diagnoses Not on filedocumented in this encounter
--- OUTSIDE RECORDS SUMMARY | 2022-04-16 19:45 | XMS_ITS | Encounter Summary ---
:1955 Author Organization [employer] Address [address] [place] [address] Care Team Providers Name Role Phone Vanessa Mills MD Primary Care Provider Reason for Visit Reason Comments Abdominal Pain Auth/Cert Specialty Diagnoses / Procedures Referred By Contact Refer red To Contact Diagnoses Small bowel obstruction (HRC) SBO (small bowel obstruction) (HRC) SBO (small bowel obstruction) (HRC) Small bowel obstruction (HRC) SBO (small bowel obstruction) (HRC) Small bowel obstruction (HRC) Referral ID Status Reason Start Date Expiration Date Visits Requ ested Visits Authorized [id number] 1 1 Encounter Details Date Type Department Care Team Description 08/20/2018 Surgery Faith Operating Azul Hutchinson MD DIAGNOSTIC LAPAROSCOPY Room [address] [facility] CONVERTED TO [address] [place] [address]. [place], [place] EXPLORATORY LAPAROTOMY, [place] [address] ILEO COLIC RESCTION [id number] WITH LYSIS OF ADHESIONS [phone] Social History Tobacco Use Types Packs/Day Years [...] Sign Reading Time Taken Comments Blood Pressure 187/73 08/20/2018 3:08 PM SENIOR IOS SOFTWARE ENGINEER Pulse 59 08/20/2018 3:08 PM SENIOR IOS SOFTWARE ENGINEER Temperature 35.9 ??C (96.6 ??F) 08/20/2018 3:08 PM SENIOR IOS SOFTWARE ENGINEER Respiratory Rate 16 08/20/2018 3:08 PM SENIOR IOS SOFTWARE ENGINEER Oxygen Saturation 100% 08/20/2018 3:08 PM SENIOR IOS SOFTWARE ENGINEER Inhaled Oxygen Concentration - - Weight 81.6 kg (180 lb) 08/20/2018 3:08 PM SENIOR IOS SOFTWARE ENGINEER Height 165.1 cm (5' 5) 08/20/2018 3:08 PM SENIOR IOS SOFTWARE ENGINEER Body Mass Index 30.32 08/20/2018 3:08 PM SENIOR IOS SOFTWARE ENGINEER documented in this encounter Discharge Summaries Padmaja Saavedra MD - 08/27/2018 12:03 PM CST [facility] DISCHARGE SUMMARY Service: GENERAL SURGERY Date of [...] needed., Disp-10 Tablet, R-0, Q3H PRN Starting Diamond 08/27/2018, Oral, Print oxyCODONE (ROXICODONE) 5 MG immediate release tablet Take 1 Tablet by mouth every 4 hours as needed., Disp-20 Tablet, R-0, Q4H PRN Starting Diamond 08/27/2018, Oral, Print CONTINUE these medications which [...] - - Padmaja Saavedra MD, PGY6 Surgery OR IOS SOFTWARE ENGINEER documented in this encounter Discharge Instructions Discharge Instr - Other Shazia Castaneda MD - 08/25/2018 12:19 PM SENIOR IOS SOFTWARE ENGINEER Diet: Advance diet as tolerated to regular foods. Drink lots of fluids and stay hydrated. Activity: As tolerated; please do not lift/push/pull greater than 15 lbs for 6 weeks. Wound Care: You may shower 48 hours after surgery; do not bathe/swim/soak incisions underwater for 2weeks or until fully healed. [place] will need to be removed 10-14 days [...] emergency. Other: Please call surgery clinic at [phone] Evangelina Bridges' nurse if [...] of regular business hours, please call the [facility] [phone]. OR IOS SOFTWARE ENGINEER documented in this encounter Medications at Time [...] 175 MCG tabletIndications: daily. Takes LAYNE Vogel Wed Sep Synthroid. 2014 1:28 PM Received from: External [...] family. Erica Caraballo RN 12:04 PM 08/27/2018 OR IOS SOFTWARE ENGINEER Padmaja Saavedra MD - 08/27/2018 6:53 AM [...] (165.1 cm) Wt 182 lb 3.2 oz (43809 g) SpO2 100% BMI 30.32 kg/m?? NAD NLB Abd soft, nondist, nonttp Incisions c/d/i with karolina - mild ecchymosis of midline incision, some reactive erythema near karolina around umbilicus, port sites with steris ASSESSMENT/PLAN: 63F with SBO now POD7 (08/20) s/p ex lap with ileocolic resection. -General diet -Pain: acet and ibuprofen, oral dilaudid prn -Up with assist -Ppx: IS, lovenox bid, ambulate -Anticipate dc later today - - - - - Padmaja Saavedra MD, MPH (PGY6) Surgery OR IOS SOFTWARE ENGINEER Associated attestation - Jill Thornton MD - 08/27/2018 10:27 AM SENIOR IOS SOFTWARE ENGINEER Looks great Home today [place] out in [address] [...] spiritual/emotional support. Request can be made on [employer]. Data Summary: 08/26/18 1620 Referral Source Referral Source Master Motorcycle Technician Self-Referral Reason for Referral Length of Stay Yes Spiritual Assessment Yes Emotional/Spiritual Distress Anxiousness Low Pain Low Sadness Low Master Motorcycle Technician Interventions Healing Modalities Prayer/Healing Note completed by: Chaplain Tejinder (PhD) Pager: [phone] OR IOS SOFTWARE ENGINEER Padmaja Saavedra MD - 08/26/2018 7:27 AM [...] (165.1 cm) Wt 183 lb 11.2 oz (38178 g) SpO2 97% BMI 30.57 kg/m?? NAD NLB Abd soft, nondist, nonttp Incisions c/d/i with karolina - mild ecchymosis of midline incision, port [...] - Padmaja Saavedra MD, MPH (PGY6) Surgery OR IOS SOFTWARE ENGINEER Associated attestation - Jill Thornton MD - 08/26/2018 10:10 AM SENIOR IOS SOFTWARE ENGINEER Looks great Mckenzie Anaya RN - 08/25/2018 4:45 PM CST Shift Update: Advanced to clears. Tolerating well with no c/o increased pain or nausea. Passing flatus, one large BM today, dark red in color. MD aware. Midline incision stapled, CDI with mild redness surrounding. Ambulating frequently and independently. Rash on back, pt reports is likely due to bed sheets. Applying hydrocortisone cream PRN. CIGARETTE PACKING MACHINE OPERATOR at 0.2 bolus, managing pain well. Will continue to monitor. Mckenzie Anaya RN 08/25/2018, 4:47 PM Padmaja Hardy MD - 08/25/2018 2:35 PM CST ACUTE CARE SURGERY PROGRESS NOTE Tolerating clears. + flatus. No addl BMs after BM yesterday. No nausea. PHYSICAL EXAM: Vital Signs: BP (!) 140/68 (BP Location: Right Arm, BP Cuff Size: Adult Regular/Long) Pulse 69 Temp 99.7 ??F (37.6 ??C) (Oral) Resp 20 Ht 5' 5 (165.1 cm) Wt 185 lb 12.8 oz (23302 g) SpO2 97% BMI 30.92 kg/m?? NAD NLB Abd soft, nondist, nonttp Incisions c/d/i with karolina - mild ecchymosis of midline incision, port sites with steris ASSESSMENT/PLAN: 63F with SBO now POD5 (08/20) s/p ex lap with ileocolic resection. -CLD today -Up with assist -Ppx: IS, lovenox bid, ambulate - - - - - Padmaja Saavedra MD, MPH (PGY6) Surgery Lavon Fernandez - 08/25/2018 2:15 PM CST Spiritual Care. Pt out of the room when I attempted to visit. Spiritual care will remain available. 08/25/18 1415 Referral Source Referral Source Master Motorcycle Technician Self-Referral Reason for Referral Spiritual Assessment Yes Chaplain YAKELIN Sanfordiv., MA/CP Phone: [phone], Pager: [phone] - 08/24/2018 10:30 AM CST NUTRITION ASSESSMENT Referral for this 63 y.o. female due to: ?? NPO x 5 days Additional Factors Affecting Nutrition Status: ?? SBO ?? S/p ex lap with ileocolic resection on 08/20 ?? NG-tube to LIS Admit Dx: ?? Small bowel obstruction (HRC) [K56.609] ?? SBO (small bowel obstruction) ([facility]) [K56.609] PMH/Patient Active Problem List: Patient Active Problem List Diagnosis ??? SBO (small bowel obstruction) ([facility]) No past medical history on file. No [...] Appetite/ PO Intake: NA GI Function: LBM 08/24, loose per flow sheets. Anthropometrics: Height: 1.651 m (5' 5) Weight Hx: Wt Readings from Last 3 Encounters: 08/23/18 86.5 kg (190 lb 9.6 oz) BMI: 31.72 kg/m?? IBW: 57 kg +/- 10% Labs Noted: Lab Results Component Value Date/Time Hemoglobin 8.0 (L) 08/23/2018 0620 Sodium 143 08/23/2018 0620 Potassium 3.9 08/23/2018 0620 Calcium 8.2 (L) 08/23/2018 0620 Lab Glucose 80 08/23/2018 0620 Blood Urea Nitrogen 13 08/23/2018 0620 Creatinine Serum 0.46 (L) 08/23/2018 0620 Est GFR Am >60 08/23/2018 0620 Est GFR Non-Afr Am >60 08/23/2018 0620 Medications Noted: Synthroid. IV Fluids: ??? dextrose [...] (Contact Dietitian assigned to patient's floor using EpiEP) Padmaja Hardy MD - 08/24/2018 7:26 AM CST ACUTE [...] (165.1 cm) Wt 190 lb 9.6 oz (53982 g) SpO2 96% BMI 31.72 kg/m?? NAD NLB Abd soft, mild distention, nonttp Incisions c/d/i with karolina - mild ecchymosis around umbilicus, port sites [...] - Padmaja Saavedra MD, MPH (PGY6) Surgery Ina Ansari MD - 08/23/2018 8:57 AM CST General Surgery Progress Note 08/23/18 ?? Stable overnight. Pain controlled with CIGARETTE PACKING MACHINE OPERATOR. NGT to LIS with lots of output (1.75 L). Had 3 small icechips cups. No bm, no gas. Ambulated 4 times. ?? BP (!) 146/69 (BP Location: Right Arm, BP Cuff Size: Adult Regular) Pulse 72 Temp 98.5 ??F (36.9??C) (Oral) Resp 18 Ht 5' 5 (165.1 cm) Wt 184 lb 3.2 oz (35216 g) SpO2 93% BMI 30.65 kg/m? NGT 1750, blood tinged UOP 1050, 300 since midnight ?? PE NAD NLB Abd soft, nondistended, incision c/d/i with karolina Ext wwp ?? Labs Na 143 K 3.9 ?? A/P: 63F with closed loop obstruction. POD3 s/p exploratory laparotomy and ileocolic resection. Ileus. -continue CIGARETTE PACKING MACHINE OPERATOR -continue NPO, IVF@125, continue NGT to LIS -start omeprazole for blood-tinged NGT output -monitor UOP -continue lovenox ppx -encourage ambulation ?? Discussed with staff, Dr. Hutchinson. ?? Ina Olson MD PGY3 General surgery OR IOS SOFTWARE ENGINEER Associated attestation - Shazia Hutchinson MD - 08/23/2018 6:19 PM SENIOR IOS SOFTWARE ENGINEER Patient seen and examined independently by me. [...] Note 08/22/18 Stable overnight. Pain controlled with CIGARETTE PACKING MACHINE OPERATOR. NGT to LIS. Burping. No bm. No gas. Ambulated. BP (!) 146/69 (BP Location: Right Arm, BP Cuff Size: Adult Regular) Pulse 72 Temp 98.5 ??F (36.9??C) (Oral) Resp 18 Ht 5' 5 (165.1 cm) Wt 184 lb 3.2 oz (01145 g) SpO2 93% BMI 30.65 kg/m?? NGT 650 and 250 overnight UOP 750, 450 since midnight PE NAD NLB Abd soft, nondistended, incision c/d/i with karolina Ext wwp Labs WBC 7.1 Hg 8.3 from 9.2 A/P: 63F with closed loop obstruction. POD2 s/p exploratory laparotomy and ileocolic resection. Awaiting return of bowel function. -continue CIGARETTE PACKING MACHINE OPERATOR -continue NPO, IVF@125, continue NGT to LIS for now -will recheck hg at 6 pm, hold lovenox until then, likely downward drift is dilutional -monitor UOP -encourage ambulation Discussed with staff, Dr. Hutchinson. Ina Olson MD PGY3 General surgery OR IOS SOFTWARE ENGINEER Associated attestation - Shazia Hutchinson MD - 08/22/2018 1:33 PM SENIOR IOS SOFTWARE ENGINEER Patient seen and examined independently by me. [...] oxygen saturation greater than 90%. A: NPO. CIGARETTE PACKING MACHINE OPERATOR Dilaudid 0.2 mg effective for pain. Incentive spirometer encouraged. R: Resting in between nursing cares. Brii Rai, RN 6:34 AM 08/22/2018 OR IOS SOFTWARE ENGINEER Padmaja Saavedra MD - 08/21/2018 8:38 AM CST ACUTE CARE SURGERY PROGRESS NOTE Patient reports pain is controlled. Thinks she passed a little bit of flatus. PHYSICAL EXAM: Vital Signs: BP 133/49 (BP Location: Left Arm, BP Cuff Size: Adult Regular/Long) Pulse 78 Temp 98.6 ??F (37 ??C) (Oral) Resp 17 Ht 5' 5 (165.1 cm) Wt 190 lb 8 oz (94408 g) SpO2 100% BMI 31.70 kg/m?? NAD [...] - Padmaja Saavedra MD, MPH (PGY6) Surgery OR IOS SOFTWARE ENGINEER Associated attestation - Shazia Hutchinson MD - 08/21/2018 6:36 PM SENIOR IOS SOFTWARE ENGINEER Patient seen and examined independently by me. All labs and imaging personally reviewed by me. I agree with the resident note, which reflects my assessment. POD#1 s/p ex lap, ileocolic resection. Doing well, pain controlled with CIGARETTE PACKING MACHINE OPERATOR. Not passing gas yet. Cruz out, voiding. Lovenox. Plan to take NG out tomorrow if minimal output. Shazia Hutchinson MD 08/21/2018, 6:36 PM Flako Rizo RN - 08/20/2018 11:30 PM CST POST-OP O: Patient will have a stable post-op period. D: Pt arrived to room 4EST05/1S96-70, at 2130. Patient is alert and oriented x 4. Mid line incision dressing w/ scant bloody drainage. Cruz intact and patent, NGT at low contineous suction. Initial Vital Signs: Temp: 37.1 ??C (98.8 ??F) (08/20/182139) Pulse: 79 (08/20/182309) Resp: 18 (08/20/182309) BP: (!) 145/64 (08/20/182309) [...] settled to room. Will continue to monitor. OR IOS SOFTWARE ENGINEER documented in this encounter Procedure Notes Shane Núñez MD - 08/20/2018 8:05 PM CST [facility] Brief Operative Progress Note Surgery Date: 08/20/2018 [...] side ileocolic anastomosis created. Padmaja Saavedra MD OR IOS SOFTWARE ENGINEER Padmaja Saavedra MD - 08/20/2018 8:00 PM CST OPERATIVE REPORT Pre-op Diagnosis(es): 1. Closed loop small bowel obstruction Post-op Diagnosis(es): 1. Closed loop small bowel obstruction secondary to adhesion Procedure: 1. Diagnostic laparoscopy converted to exploratory laparotomy 2. Lysis of adhesions 3. Ileocolic resection Primary Surgeon(s): 1. Dr. Shazia Hutchinson 2. Dr. Shane Núñez Condominium Manager(s): 1. Padmaja Saavedra, [facility] General Surgery Resident Anesthesia: GETA EBL: [...] minimal mobilization from the lateral wall. A choi-py-xenc anastomosis was then created. The colon and [...] 0-0 PDS. The soft tissue was irrigated. [place] were used to close the skin. The remaining two port sites were closed with 4-0 Monocryl and benzoin with steri strips. The patient tolerated the procedure well, and all final counts were correct. The patient was extubated in the OR. The staff surgeon was present for all critical portions of the case. Padmaja Saavedra MD MPH (PGY6) General Surgery Resident OR IOS SOFTWARE ENGINEER Shane Núñez MD - 08/20/2018 12:00 PM CST NAME: VALERI ROJAS MR#: [id number] CSN: [id number] AUTHENTICATING CLINICIAN: Shane Núñez MD CONFIRM #: [id number] LOC: 1 OPERATIVE REPORT DATE OF OPERATION: [...] Dr. Shazia Hutchinson and Dr. Shane Núñez. TUBE MOLDER FIBERGLASS: Padmaja Saavedra [facility] Assembler Surgical Garment. ANESTHESIA: General endotracheal anesthesia. ESTIMATED BLOOD LOSS: [...] running 0 PDS suture. Skin was irrigated. [place] were used to close the skin. The 2 laparoscopic port sites were closed with 4-0 Monocryl. The patient tolerated the procedure well. There were no complications. She was transferred to the PACU in stable condition. DJW:VIJAYA C: CONFIRM #: [id number] OR IOS SOFTWARE ENGINEER Shazia Hutchinson MD - 08/20/2018 12:00 PM CST NAME: VALERI ROJAS MR#: [id number] CSN: [id number] AUTHENTICATING CLINICIAN: Shazia Hutchinson MD CONFIRM #: [id number] LOC: 1 OPERATIVE REPORT DATE OF OPERATION: [...] see his dictation for full operative details. APW:VIJAYA C: CONFIRM #: [id number] OR IOS SOFTWARE ENGINEER documented in this encounter Consult Notes Padmaja [...] use - 1 drink/week. 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 ALLERGIES: Allergies Allergen Reactions ??? Cefazolin [...] 1:28 PM Received from: External Pharmacy omeprazole ([facility] OMEPRAZOLE) 20 MG enteric coated tablet No [...] ??C) (Oral) Resp 22 Wt 180 lb (65564 g) SpO2 100% General: Appears uncomfortable laying [...] omental implants could not entirely be excluded. OR IOS SOFTWARE ENGINEER Associated attestation - Shazia Hutchinson MD - 08/23/2018 6:16 PM SENIOR IOS SOFTWARE ENGINEER Patient seen and examined independently by me. [...] and from the bathroom with little assistance OR IOS SOFTWARE ENGINEER Abdoulaye Lehman MD - 08/20/2018 11:56 AM [...] statements to me. 08/20/2018 at 2:26 PM [facility] Abdoulaye Lehman MD 08/20/18 1433 OR IOS SOFTWARE ENGINEER documented in this encounter Plan of Treatment Not on filedocumented as of this encounter Procedures Procedure Name Priority Date/Time Associated Comments Diagnosis COMPLETE BLOOD Specified Time 08/26/2018 6:24 Results for this COUNT-NO DIFF AM SENIOR IOS SOFTWARE ENGINEER procedure are in the results section. ANION GAP Specified Time 08/23/2018 6:20 Results fo r this AM SENIOR IOS SOFTWARE ENGINEER procedure are i n the results section. BASIC METABOLIC Specified Time 08/23/2018 6:20 Results for this PANEL AM SENIOR IOS SOFTWARE ENGINEER procedure are i n the results section. COMPLETE BLOOD Specified Time 08/23/2018 6:20 Results for this COUNT-NO DIFF AM SENIOR IOS SOFTWARE ENGINEER procedure are in the results section. ANION GAP Routine 08/22/2018 6:33 Results for this PM SENIOR IOS SOFTWARE ENGINEER procedure are i n the results section. BASIC METABOLIC Routine 08/22/2018 6:33 Results f or this PANEL PM SENIOR IOS SOFTWARE ENGINEER procedure are i n the results section. HEMOGLOBIN, BLOOD Routine 08/22/2018 6:33 Results for this PM SENIOR IOS SOFTWARE ENGINEER procedure are i n the results section. COMPLETE BLOOD Specified Time 08/22/2018 6:11 Results for this COUNT-NO DIFF AM SENIOR IOS SOFTWARE ENGINEER procedure are in the results section. COMPLETE BLOOD Routine 08/21/2018 3:10 Results fo r this COUNT-NO DIFF PM SENIOR IOS SOFTWARE ENGINEER procedure are in the results section. ANION GAP Specified Time 08/21/2018 6:59 Results fo r this AM SENIOR IOS SOFTWARE ENGINEER procedure are i n the results section. BASIC METABOLIC Specified Time 08/21/2018 6:59 Results for this PANEL AM SENIOR IOS SOFTWARE ENGINEER procedure are i n the results section. LAPAROSCOPIC 08/20/2018 4:07 SBO (small bowel EXPLORATION ABDOMEN PM SENIOR IOS SOFTWARE ENGINEER obstruction) ([facility]) Case Notes Dressing Benzoin, steristrip s, telfa, tegaderm UA WITH CULTURE IF POS STAT 08/20/2018 1:24 PM SENIOR IOS SOFTWARE ENGINEER Results for this ([facility]IN[facility]) procedure are i n the results section . CT ABD PELVIS WO IV CONT STAT 08/20/2018 1:04 PM SENIOR IOS SOFTWARE ENGINEER Results for this STONE procedure are i n the results section . [facility] DRAW AND STAT 08/20/2018 11:54 AM SENIOR IOS SOFTWARE ENGINEER Results for this HOLD procedure are i n the results section . ANION GAP STAT 08/20/2018 11:54 AM SENIOR IOS SOFTWARE ENGINEER Resu lts for this procedure are i n the results section . COMPLETE BLOOD COUNT-W/DIFF STAT 08/20/2018 11:54 AM SENIOR IOS SOFTWARE ENGINEER Results for this procedure are i n the results section . BASIC METABOLIC PANEL STAT 08/20/2018 11:54 AM SENIOR IOS SOFTWARE ENGINEER Results for this procedure are i n the results section . DIFFERENTIAL STAT 08/20/2018 11:54 AM SENIOR IOS SOFTWARE ENGINEER Resu lts for this procedure are i n the results section . LIPASE STAT 08/20/2018 11:54 AM SENIOR IOS SOFTWARE ENGINEER Resu lts for this procedure are i n the results section . SURGICAL PATH, PARK Routine 08/20/2018 6:00 AM SENIOR IOS SOFTWARE ENGINEER Results for this NICOLLET procedure are i n the results section . documented in this encounter Results (ABNORMAL) Complete Blood Count-No Diff (08/26/2018 6:24 AM SENIOR IOS SOFTWARE ENGINEER) [facility] Time Signature White Blood Cell [...] Volume Laterality 08/26/2018 6:24 AM 9 6:47 SENIOR IOS SOFTWARE ENGINEER AM SENIOR IOS SOFTWARE ENGINEER Narrative PN SOFT - 08/26/2018 7:14 AM SENIOR IOS SOFTWARE ENGINEER Performed at [facility], [address] [place] [address] CLIA number [id number] Jill Thornton MD LAB_1 Performing Organization Address City/State/ZIP Code Phon e Number PN SOFT [address] [place] [address] Anion Gap (08/23/2018 6:20 AM SENIOR IOS SOFTWARE ENGINEER) athologist Signature ANION GAP 7 0 - 16 mEq/L PN SOFT Specimen Anatomical Collection Method Collection Time Receive d Time (Source) Location / / Volume Laterality 08/23/2018 6:20 AM 9 6:27 SENIOR IOS SOFTWARE ENGINEER AM SENIOR IOS SOFTWARE ENGINEER Narrative PN SOFT - 08/23/2018 6:52 AM SENIOR IOS SOFTWARE ENGINEER Performed at [address] [address] CLIA number [id number] Shazia Hutchinson MD LAB_1 Performing Organization Address [facility] Phon e Number PN SOFT [address] [place] [address] (ABNORMAL) Complete Blood Count-No Diff (08/23/2018 6:20 AM SENIOR IOS SOFTWARE ENGINEER) [facility] gist Method Time Signature White Blood [...] Volume Laterality 08/23/2018 6:20 AM 9 6:27 SENIOR IOS SOFTWARE ENGINEER AM SENIOR IOS SOFTWARE ENGINEER Narrative PN SOFT - 08/23/2018 6:32 AM SENIOR IOS SOFTWARE ENGINEER Performed at [address] [address] CLIA number [id number] Shazia Hutchinson MD LAB_1 Performing Organization Address [facility] Phon e Number PN SOFT [address] [place] [address] (ABNORMAL) Basic Metabolic Panel (08/23/2018 6:20 AM SENIOR IOS SOFTWARE ENGINEER) Analysis Performed At [facility] logist Time Signature Creatinine 0.46 (L) 0.55 [...] Volume Laterality 08/23/2018 6:20 AM 9 6:27 SENIOR IOS SOFTWARE ENGINEER AM SENIOR IOS SOFTWARE ENGINEER Narrative PN SOFT - 08/23/2018 6:52 AM SENIOR IOS SOFTWARE ENGINEER [place] [address] CLIA number [id number] Shazia Hutchinson MD LAB_1 Performing Organization Address [facility] Phon e Number SOFT [address] [place] [address] Anion Gap (08/22/2018 6:33 PM SENIOR IOS SOFTWARE ENGINEER) athologist Signature ANION GAP 8 0 - 16 mEq/L PN SOFT Specimen Anatomical Collection Method Collection Time Receive d Time (Source) Location / / Volume Laterality 08/22/2018 6:33 PM 9 6:37 SENIOR IOS SOFTWARE ENGINEER PM SENIOR IOS SOFTWARE ENGINEER Narrative PN SOFT - 08/22/2018 6:57 PM SENIOR IOS SOFTWARE ENGINEER Performed at [address] [address] CLIA number [id number] Shazia Hutchinson MD LAB_1 Performing Organization Address [facility] Phon e Number SOFT [address] [place] [address] (ABNORMAL) Basic Metabolic Panel (08/22/2018 6:33 PM SENIOR IOS SOFTWARE ENGINEER) Analysis Performed At Patho logist Time Signature [...] Volume Laterality 08/22/2018 6:33 PM 9 6:37 SENIOR IOS SOFTWARE ENGINEER PM SENIOR IOS SOFTWARE ENGINEER Narrative PN SOFT - 08/22/2018 6:57 PM SENIOR IOS SOFTWARE ENGINEER [place] [address] CLIA number [id number] Shazia Hutchinson MD LAB_1 Performing Organization Address City/State/ZIP Code Phon e Number PN SOFT [address] [place] [address] (ABNORMAL) Hemoglobin (08/22/2018 6:33 PM SENIOR IOS SOFTWARE ENGINEER) P athologist Signature Hemoglobin 8.0 (L) 11.8 - 15.5 PN SOFT g/dL Specimen Anatomical Collection Method Collection Time Receive d Time (Source) Location / / Volume Laterality 08/22/2018 6:33 PM 9 6:37 SENIOR IOS SOFTWARE ENGINEER PM SENIOR IOS SOFTWARE ENGINEER Narrative PN SOFT - 08/22/2018 6:41 PM SENIOR IOS SOFTWARE ENGINEER Performed at [place] [address] CLIA number [id number] Shazia Hutchinson MD LAB_1 Performing Organization Address [facility] Phon e Number PN SOFT [address] [place] [address] [phone] (ABNORMAL) Complete Blood Count-No Diff (08/22/2018 6:11 AM SENIOR IOS SOFTWARE ENGINEER) [facility] Method Time Signature White Blood Cell 7.1 [...] Volume Laterality 08/22/2018 6:11 AM 9 6:14 SENIOR IOS SOFTWARE ENGINEER AM SENIOR IOS SOFTWARE ENGINEER Narrative PN SOFT - 08/22/2018 6:18 AM SENIOR IOS SOFTWARE ENGINEER Performed at [address] [address] CLIA number [id number] Shazia Hutchinson MD LAB_1 Performing Organization Address [facility] Phon e Number PN SOFT [address] [place] [address] (ABNORMAL) Complete Blood Count-No Diff (08/21/2018 3:10 PM SENIOR IOS SOFTWARE ENGINEER) [facility] Method Time Signature White Blood Cell [...] Volume Laterality 08/21/2018 3:10 PM 9 3:14 SENIOR IOS SOFTWARE ENGINEER PM SENIOR IOS SOFTWARE ENGINEER Narrative PN SOFT - 08/21/2018 3:20 PM SENIOR IOS SOFTWARE ENGINEER [place] [address] CLIA number [id number] Shazia Hutchinson MD LAB_1 Performing Organization Address [facility] Phon e Number PN SOFT [address] [place] [address] Anion Gap (08/21/2018 6:59 AM SENIOR IOS SOFTWARE ENGINEER) P athologist Signature ANION GAP 6 0 - 16 mEq/L PN SOFT Specimen Anatomical Collection Method Collection Time Receive d Time (Source) Location / / Volume Laterality 08/21/2018 6:59 AM 9 7:31 SENIOR IOS SOFTWARE ENGINEER AM SENIOR IOS SOFTWARE ENGINEER Narrative PN SOFT - 08/21/2018 8:02 AM SENIOR IOS SOFTWARE ENGINEER Performed at [address] [address] CLIA number [id number] Shane Núñez MD LAB_1 Performing Organization Address [facility] Phon e Number PN SOFT [address] [place] [address] (ABNORMAL) Basic Metabolic Panel (08/21/2018 6:59 AM SENIOR IOS SOFTWARE ENGINEER) Analysis Performed At Patho logist Time Signature [...] Volume Laterality 08/21/2018 6:59 AM 9 7:31 SENIOR IOS SOFTWARE ENGINEER AM SENIOR IOS SOFTWARE ENGINEER Narrative PN SOFT - 08/21/2018 8:02 AM SENIOR IOS SOFTWARE ENGINEER Performed at [facility], [facility] [place] [address] CLIA number [id number] Shane Núñez MD LAB_1 Performing Organization Address City/State/ZIP Code Phon e Number PN SOFT [address] [place] [address] (ABNORMAL) Urinalysis with Culture if Pos (Faith) (08/20/2018 1:24 PM SENIOR IOS SOFTWARE ENGINEER) [facility] Method Time Signature Urine Type URINE:clean [...] U Specific 1.010 1.005 - PN SOFT [place] 1.030 Urobilinogen Negative Negative PN SOFT Urine Eu/dL Urine WBC 1 0 - 9 /HPF PN SOFT Urine RBC 1 0 - 2 /HPF PN SOFT Amorphous Many (A) /HPF PN SOFT Crystals Specimen Anatomical Collection Method Collection Time Receive d Time (Source) Location / / Volume Laterality 08/20/2018 1:24 PM 9 1:26 SENIOR IOS SOFTWARE ENGINEER PM SENIOR IOS SOFTWARE ENGINEER Narrative PN SOFT - 08/20/2018 1:43 PM SENIOR IOS SOFTWARE ENGINEER Performed at [facility], [facility] [place] [address] CLIA number [id number] Abdoulaye J Zeitz MD LAB_1 Performing Organization Address City/State/ZIP Code Phon e Number PN SOFT [address] [place] [address] CT Abd Pelvis WO IV Cont Stone (08/20/2018 1:04 PM SENIOR IOS SOFTWARE ENGINEER) Anatomical Region Laterality Modality Abdomen, Pelvis Computed Tomography Specimen (Source) Anatomical Collection Method Collection Time Re ceived Time Location / / Volume Laterality 08/20/2018 12:56 PM SENIOR IOS SOFTWARE ENGINEER Impressions 08/20/2018 1:37 PM SENIOR IOS SOFTWARE ENGINEER IMPRESSION: ?? 1. Closed loop small bowel [...] entirely be excluded. Narrative 08/20/2018 1:37 PM SENIOR IOS SOFTWARE ENGINEER COMPARISON: ??None. TECHNIQUE: ??Images were obtained throug [...] RAD CT (ABNORMAL) Differential (08/20/2018 11:54 AM SENIOR IOS SOFTWARE ENGINEER) Patholo gist Method Time Signature Absolute 8.2 (H) 1.8 [...] / Volume Laterality 08/20/2018 11:54 08/20/2018 AM SENIOR IOS SOFTWARE ENGINEER 12:00 PM SENIOR IOS SOFTWARE ENGINEER Narrative PN SOFT - 08/20/2018 12:04 PM SENIOR IOS SOFTWARE ENGINEER Performed at [address] [address] CLIA number [id number] Flash Mac MD LAB_1 Performing Organization Address [facility] Phon e Number PN SOFT [address] [place] [address] Anion Gap (08/20/2018 11:54 AM SENIOR IOS SOFTWARE ENGINEER) P athologist Signature ANION GAP 15 0 - 16 mEq/L PN SOFT Specimen Anatomical Collection Method Collection Time Receive d Time (Source) Location / / Volume Laterality 08/20/2018 11:54 08/20/2018 AM SENIOR IOS SOFTWARE ENGINEER 12:00 PM SENIOR IOS SOFTWARE ENGINEER Narrative PN SOFT - 08/20/2018 12:21 PM SENIOR IOS SOFTWARE ENGINEER Performed at [address] [address] CLIA number [id number] Flash Mac MD LAB_1 Performing Organization Address [facility] Phon e Number PN SOFT [address] [place] [address] LIPASE (08/20/2018 11:54 AM SENIOR IOS SOFTWARE ENGINEER) P athologist Signature Lipase 22 8 - 78 U/L PN SOFT Specimen Anatomical Collection Method Collection Time Receive d Time (Source) Location / / Volume Laterality 08/20/2018 11:54 08/20/2018 AM SENIOR IOS SOFTWARE ENGINEER 12:00 PM SENIOR IOS SOFTWARE ENGINEER Narrative PN SOFT - 08/20/2018 12:21 PM SENIOR IOS SOFTWARE ENGINE[place] [address] CLIA number [id number] Flash Mac MD LAB_1 Performing Organization Address [facility] Phon e Number PN SOFT [address] [place] [address] Emergency Center Draw And Hold (08/20/2018 11:54 AM SENIOR IOS SOFTWARE ENGINEER) athologist Signature Emergency Drawn PN SOFT Center Draw And Hold Extra Lavender Drawn PN SOFT Top Drawn Extra PST Top Drawn PN SOFT Drawn Extra SST Top Drawn PN SOFT Drawn Specimen Anatomical Collection Method Collection Time Receive d Time (Source) Location / / Volume Laterality 08/20/2018 11:54 08/20/2018 AM SENIOR IOS SOFTWARE ENGINEER 12:00 PM SENIOR IOS SOFTWARE ENGINEER Narrative PN SOFT - 08/20/2018 12:18 PM SENIOR IOS SOFTWARE ENGINEER Performed at [address] [address] CLIA number [id number] Flash Mac MD LAB_1 Performing Organization Address [facility] Phon e Number PN SOFT [address] [place] [address] (ABNORMAL) Basic Metabolic Panel (08/20/2018 11:54 AM SENIOR IOS SOFTWARE ENGINEER) Analysis Performed At Patho logist Time Signature [...] / Volume Laterality 08/20/2018 11:54 08/20/2018 AM SENIOR IOS SOFTWARE ENGINEER 12:00 PM SENIOR IOS SOFTWARE ENGINEER Narrative PN SOFT - 08/20/2018 12:21 PM SENIOR IOS SOFTWARE ENGINEER Performed at [place] [id number] CLIA number [id number] Flash Mac MD LAB_1 Performing Organization Address City/State/[facility] Code [facility] e Number PN SOFT [address] [place] [address] Complete Blood Count-W/Diff (08/20/2018 11:54 AM SENIOR IOS SOFTWARE ENGINEER) P athologist Signature White Blood Cell 9.7 3.8 [...] / Volume Laterality 08/20/2018 11:54 08/20/2018 AM SENIOR IOS SOFTWARE ENGINEER 12:00 PM SENIOR IOS SOFTWARE ENGINEER Narrative PN SOFT - 08/20/2018 12:04 PM SENIOR IOS SOFTWARE ENGINEER Performed at [address] [address] CLIA number [id number] Flash Mac MD LAB_1 Performing Organization Address City/State/ZIP Code Phon e Number SAHIL DEY [address] [place] [address] Pathology Report (08/20/2018 6:00 AM SENIOR IOS SOFTWARE ENGINEER) [facility] gist Method Time Signature Path: FINAL SURGICAL PATHOLOGY REPORT PN SOFT Pathology #: [id number] ? Date Obtained: 08/20/2018 ?Date Received: 08/21/2018 DIAGNOSIS: Terminal ileum and cecum, segmental resection: ??- Small bowel transmural ischemic necrosis. ??- Viable surgical margins. ??- Negative for dysplasia or malignancy. ?Anthony ADAMS ? (electronic signatur e) ? 08/24/2018 ??12:5 [...] ??No appendix is iden tified ?? grossly. ??Facility Operations Manager sections are submitted in 6 bl ocks. Summary of sections: A1 proximal and distal resection nolan ns; A2-4 ?? small bowel from proximal to distal; A5 ileocecal valve; A6 ?? mesentery. ? SMD MICROSCOPIC DESCRIPTION: The microscopic examination has been performed. Performed at [facility], [address] [facility], [place] [address] Specimen Anatomical Collection Method Collection Time Receive d Time (Source) Location / / Volume Laterality COLON STRUCTURE / 08/20/2018 6:00 AM 10/2018 6:00 Unknown SENIOR IOS SOFTWARE ENGINEER AM SENIOR IOS SOFTWARE ENGINEER Shazia Hutchinson MD LAB_1 Performing Organization Address City/State/ZIP Code Phon e Number PN SOFT [address] [place] [address] documented in this encounter Visit Diagnoses Diagnosis SBO (small bowel obstruction) (HRC) - Pr imary Unspecified intestinal obstruction Small bowel obstruction (HRC) Unspecified intestinal obstruction SBO (small bowel obstruction) (HRC) Unspecified intestinal obstruction Triage Assessment Note - Eleazar Roland RN - 08/20/2018 11:26 AM SENIOR IOS SOFTWARE ENGINEER Presents reporting worsening generalized abdomina pain radiating to the back. Denies any N/V/D. LastBM_ Normal this morning. OR IOS SOFTWARE ENGINEER documented in this encounter Admitting Diagnoses Diagnosis SBO (small bowel obstruction) (HRC) Unspecified intestinal obstruction documented in this encounter Administered Medications Inactive Administered Medications - up to 3 most recent administrations Medication Order MAR Action Action Date Dose Rate Site acetaminophen (TYLENOL) tablet Given 08/27/2018 10:19 AM SENIOR IOS SOFTWARE ENGINEER 1,0 00 mg 1,000 mg 1,000 mg, Oral, Q8H, First dose on Fri08/26/18 at 0700, Until Discontinued Given 08/27/2018 2:06 AM SENIOR IOS SOFTWARE ENGINEER 1,000 mg Given 08/26/2018 4:03 PM SENIOR IOS SOFTWARE ENGINEER 1,000 mg amLODIPine (NORVASC) tablet 10 mg Given 08/27/2018 8:02 AM SENIOR IOS SOFTWARE ENGINEER 10 mg 10 mg, Oral, DAILY, First dose on Fri08/24/18 at 0800, Until Discontinued, OP SIG:Take 10 mg by mouth daily. Given 08/26/2018 7:55 AM SENIOR IOS SOFTWARE ENGINEER 10 mg Given 08/25/2018 8:56 AM SENIOR IOS SOFTWARE ENGINEER 10 mg benzocaine-menthol (CEPACOL) lozenge 1 Given 08/23/2018 10:10 AM SENIOR IOS SOFTWARE ENGINEER 1 Lozenge Lozenge 1 Lozenge, Oral, Q2H PRN, Throat Pain, Starting on Fri08/21/18 at 1045, Until Fri08/27/18 at 1403 Given 08/23/2018 8:05 AM SENIOR IOS SOFTWARE ENGINEER 1 Lozenge Given 08/21/2018 3:21 PM SENIOR IOS SOFTWARE ENGINEER 1 Lozenge bupivacaine-epinephrine PF Given 08/20/2018 5:01 PM 5 mL Abdominal Tissue (SENSORCAINE) 0.5% -[id number] SENIOR IOS SOFTWARE ENGINEER injection ONCE PRN, Starting on Diamond 08/20/18 at 1701, Until Diamond 08/20/18 at 2128, Intra-op enoxaparin (LOVENOX) injection Given 08/26/2018 8:16 PM SENIOR IOS SOFTWARE ENGINEER 40 m g Abdominal Tissue 40 mg 40 mg, Subcutaneous, Q24H, First dose (after last modification) on 08/22/18 at 2000, Until Discontinued Given 08/25/2018 8:04 PM SENIOR IOS SOFTWARE ENGINEER 40 mg Abdom inal Tissue Given 08/24/2018 8:24 PM SENIOR IOS SOFTWARE ENGINEER 40 mg Abdom inal Tissue FLUoxetine (PROZAC) capsule 60 mg Given 08/27/2018 8:01 AM SENIOR IOS SOFTWARE ENGINEER 60 mg 60 mg, Oral, DAILY, First dose on Fri08/23/18 at 1830, Until Discontinued, Indications: Obsessive Compulsive Disorder Given 08/26/2018 7:55 AM SENIOR IOS SOFTWARE ENGINEER 60 mg Given 08/25/2018 8:55 AM SENIOR IOS SOFTWARE ENGINEER 60 mg hydrocortisone 2.5 % cream Given 08/26/2018 10:07 PM SENIOR IOS SOFTWARE ENGINEER Back Topical, TID PRN, Rash, Itching, Starting on Fri08/25/18 at 1131, Apply topically to rash on back. Hazardous waste disposal required. Given 08/25/2018 10:02 PM SENIOR IOS SOFTWARE ENGINEER Back Given 08/25/2018 12:56 PM SENIOR IOS SOFTWARE ENGINEER Othe r (Comment) HYDROmorphone (DILAUDID) tablet 2-4 mg Given 08/27/2018 11:26 AM SENIOR IOS SOFTWARE ENGINEER 2 mg 2-4 mg, Oral, Q4H PRN, Pain, Starting on Fri08/26/18 at 0726, Until Diamond 08/27/18 at 1403 Given 08/27/2018 6:52 AM SENIOR IOS SOFTWARE ENGINEER 2 mg Given 08/27/2018 2:06 AM SENIOR IOS SOFTWARE ENGINEER 2 mg levothyroxine (SYNTHROID) tablet 175 mcg Given 08/26/2018 8:16 PM SENIOR IOS SOFTWARE ENGINEER 175 mcg 175 mcg, Oral, DAILY AT 0600, First dose (after last modification) on Fri08/25/18 at 1300, Until Discontinued, Take on an empty stomach, one hour before meals or two hours after. Given 08/25/2018 8:04 PM SENIOR IOS SOFTWARE ENGINEER 175 mcg losartan-hydrochlorothiazide (HYZAAR) Given 08/27/2018 8:[address] 1 Tablet 50-12.5 MG per tablet 1 Tablet 1 Tablet, Oral, DAILY, First dose on Fri08/24/18 at 0800, Until Discontinued Given 08/26/2018 7:55 AM SENIOR IOS SOFTWARE ENGINEER 1 Tablet Given 08/25/2018 8:56 AM SENIOR IOS SOFTWARE ENGINEER 1 Tablet omeprazole (PriLOSEC) delayed release capsule Given 8:01 AM SENIOR IOS SOFTWARE ENGINEER 20 mg 20 mg 20 mg, Oral, DAILY, First dose on Fri08/26/18 at 0800, Until Discontinued, Capsule should be swallowed whole. Best when taken before a meal, but may be given with food. Given 08/26/2018 7:55 AM SENIOR IOS SOFTWARE ENGINEER 20 mg phenol (CHLORASEPTIC) throat spray 5 Spr ay Given 08/22/2018 1:00 PM SENIOR IOS SOFTWARE ENGINEER 5 Sprays 5 [place], Oral, Q2H PRN, Throat Pain, Starting on Fri08/21/18 at 1045, Hazardous waste disposal required. Given 08/21/2018 12:05 PM SENIOR IOS SOFTWARE ENGINEER 5 Sprays sodium chloride for irrigation 0.9 % Given 08/20/2018 7:53 PM SENIOR IOS SOFTWARE ENGINEER 3,000 mL ONCE PRN, Starting on Fri08/20/18 at 1953, Intra-op documented in this encounter Active and Recently Administered Medications Times are shown in SENIOR IOS SOFTWARE ENGINEER. Scheduled Medication Order 08/25/2018 08/26/2018 08/27/2018 acetaminophen (TYLENOL) tablet 1,000 mg 0655 (Given - Provider: Etelvina Hunt RN)1603 (Given - Provider: Erica Caraballo RN) 0206 (Given - Provider: Azul Soto RN)1019 (Given - Provider: Nell Irving RN) 1,000 mg, Oral, Q8H, First dose on Fri08/26/18 at 0700 amLODIPine (NORVASC) tablet 10 mg 0856 (Given - Provider: Me charito Anaya RN) 0755 (Given - Provider: Dayron Sandoval, LORI) 0802 (Given - Provider: Erica Caraballo, LORI) 10 mg, Oral, DAILY, First dose on 03/05 at 0800, OP SIG:Take 10 mg by mouth daily. enoxaparin (LOVENOX) injection 40 mg 2003 (Given - Pro vider: Etelvina Hunt RN) 2015 (Given - Provider: Azul Soto RN) 40 mg, Subcutaneous, Q24H, First dose on 08/22/18 at 2000 FLUoxetine (PROZAC) capsule 60 mg 0855 (Given - Provider: Me charito Anaya RN) 0755 (Given - Provider: Dayron Sandoval RN) 08 (Given - Provider: Erica Caraballo, LORI) 60 mg, Oral, DAILY, First dose on 02/03 at 1830, Indications: Obsessive Compulsive Disorder levothyroxine (SYNTHROID) tablet 175 mcg 2003 (Given - Provider: Etelvina Hunt RN) 2015 (Given - Provider: Azul Soto, LORI) 175 mcg, Oral, DAILY AT 0600, First dose on Fri08/25/18 at 1300, Take on an empty stomach, one hour before meals or two hours after. losartan-hydrochlorothiazide (HYZAAR) 50-12.5 MG per t ablet 1 Tablet 0856 (Given - Provider: Mckenzie Anaya RN) 0755 (Given - Provider: Dayron Sandoval RN) 0801 (Given - Provider: Erica Caraballo, LORI) 1 Tablet, Oral, DAILY, First dose on Fri08/24/18 at 0800 NO post-op antibiotics needed 214 (Noted - Provider: Mee Hunt RN) 2145 (Noted - Provider: Azul Soto, LORI) Q24H, First dose on Diamond 08/20/18 at 2145, Post-op omeprazole (PriLOSEC) delayed release capsule 20 mg 0755 (Given - Provider: Dayron Sandoval, RN) 0801 (Given - Provider: Erica morales RN) 20 mg, Oral, DAILY, First dose on 05/06 at 0800, Capsule should be swallowed whole. Best when taken before a meal, but may be given with food. pantoprazole (PROTONIX IV) 40 mg in sodi um chloride 0.9% 10 mL IV syringe (CANCELED) 0916 (Given - Provider: Mckenzie Anaya, LORI) 40 mg, Intravenous, Administer over 2 Mi nutes, Q24H, First dose on Fri08/23/18 at 1000, Administer over a period of at least 2 minutes Continuous Medication Order 08/25/2018 08/26/2018 08/27/2018 dextrose 5%-NaCl 0.45%-KCl 20 mEq/liter infusion (CANC ELED) 1232 (Rate/Dose Change - Provider: Mckenzie Anaya RN)1250 (Started - Provider: Mckenzie Anaya RN) 0134 (New Bag Started - Provider: Etelvina Hunt RN) Intravenous, at 75 mL/hr, CONTINUOUS, Starting 08/24/18 at 071 5 HYDROmorphone (aka DILAUDID) 0.2mg/ml [...] Lozenge, Oral, Q2H PRN, Throat Pain, Starting Fri08/21/18 at 10 45 hydrocortisone 2.5 % cream 1256 (Given - Provider: Janna Anaya RN - Comment: applied to back)2201 (Given - Provider: Etelvina Hunt, LORI) 220 (Given - Provider: Azlu Soto, LORI) Topical, TID PRN, Rash, Itching, Startin g Fri08/25/18 at 1131, Apply topically to rash on back. Hazardous waste disposal required. HYDROmorphone (DILAUDID) tablet 2-4 mg 1 354 (Given - Provider: Dayron Sandoval RN)1803 (Given - Provider: Erica Caraballo, LORI)2206 (Given - Provider: Azul Soto, LORI) 0206 (Given - Provider: Azul Soto, LORI) 0652 (Given - Provider: Azul Soto, LORI)1126 (Given - Provider: Erica Caraballo, LORI) 2-4 mg, Oral, Q4H PRN, Pain, Starting 08/26/18 at 0726 labetalol (NORMODYNE) injection 5-10 mg (CANCELED) 024 1 (Given - Provider: Holli Salgado RN) 5-10 mg, Intravenous, Q6H PRN, Blood Pre ssure >, SBP >150, Starting 08/24/18 at 0647, Give over 1 to 2 minutes oxyCODONE (ROXICODONE) immediate release tablet 5-10 m g (CANCELED) 2201 (Given - Provider: Etelvina Hunt, LORI) 5-10 mg, Oral, Q4H PRN, Pain, severe stephani n and able to take po, Starting Fri08/25/18 at 1825 phenol (CHLORASEPTIC) throat spray 5 Cuddy 5 Cuddy, Oral, Q2H PRN, Throat Pain, Sta rting 08/21/18 at 1045, Hazardous waste disposal required. documented in this encounter Care Teams Combination Welder Apprentice Relationship Specialty Start Date End Date Vanessa Mills MD PCP - General 04/03/15 [address] [facility] [place] [address] documented as of this encounter
[2022-04-16 20:53] LABS: Basophils Absolute Auto 0.02 K/uL (0.00-0.30); Basophils Percent Auto 0.4 % (0.0-3.0); Eosinophils Absolute Auto 0.08 K/uL (0.00-0.50); Eosinophils Percent Auto 1.5 % (0.0-7.0); Hematocrit 40.1 % (33.0-51.0); Hemoglobin* 13.1 gm/dL (12.0-16.0); Immature Granulocytes Abs Auto 0.01 K/uL (0.00-0.30); Lymphocytes Absolute Auto 1.74 K/uL (0.90-2.90); Lymphocytes Percent Auto 33.7 % (20-44); Mean Corpuscular HGB Conc 33 gm/dL (32-36); Mean Corpuscular Hemoglobin 30 pg (26-34); Mean Corpuscular Volume 92 fL (80-100); Monocytes Percent Auto 11.6 % (0.0-11.0); Neutrophils Absolute Auto 2.72 K/uL (1.7-7.0); Neutrophils Percent Auto 52.6 % (42.0-72.0); Platelet Count* 294 K/uL (140-440); RDW Coefficient of Variation % 13.4 % (11.5-15.5); Red Blood Count 4.35 m/uL (4.00-5.20); White Blood Count* 5.17 K/uL (4.50-11.00)
[2022-04-16 21:09] LABS: Slide Review Reflex No
[2022-04-16 21:15] LABS: Albumin* 4.3 g/dL (3.3-5.0); Chloride* 103 mmol/L (96-114)
[2022-04-16 21:16] LABS: Potassium* 4.1 mmol/L (3.6-5.1); Sodium* 140 mmol/L (135-149)
[2022-04-16 21:18] LABS: Creatinine* 0.6 mg/dL (0.5-1.5); Estimated Glomerular Filt Rate 98 ml/min
[2022-04-16 21:19] LABS: Alanine Aminotransferase* 43 U/L (4-35); Alkaline Phosphatase* 94 U/L (40-150); Aspartate Amino Transferase* 39 U/L (12-35); Bilirubin Direct* 0.2 mg/dL (0.0-0.5); Bilirubin Total* 0.3 mg/dL (0.1-1.5); Blood Urea Nitrogen* 18 mg/dL (7-30); Calcium* 9.3 mg/dL (8.4-10.6); Carbon Dioxide* 30 mmol/L (20-32); Glucose* 109 mg/dL (60-115); Lipase* 116 U/L (23-300); Total Protein* 7.2 g/dL (6.0-8.3)
[2022-04-16 21:21] LABS: C Reactive Protein* 0.7 mg/dL (0.5-1.0)
== END 2022-04-16 22:45 | disposition home or self-care (01) ==
PROVIDERS: Emergency Provider Emergency Medicine
DX: K22.4 Dyskinesia of esophagus (principal)
CPT/HCPCS: 36415; 71045; 80048; 80076; 83690; 85025; 86140; 93005; 99284; 99285

== ENCOUNTER 2022-09-13 13:51 | Outpatient (CLI) | payer MEDICARE, BC, SELFPAY | END 2022-09-13 13:52 | disposition home or self-care (01) | LOC: LKVREF 09-16 13:08 | PROVIDERS: Visit Provider Nurse Practitioner Family | DX: R30.0 Dysuria (principal); N39.0 Urinary tract infection, site not specified | CPT/HCPCS: 87086; 87186 ==